=== PATIENT | male | born 1950 | race Caucasian/White ===

== ENCOUNTER → 2017-07-18 | Outpatient (CLI) | payer MEDICARE ==
[2017-07-18 13:39] LABS: Blood Urea Nitrogen 12 mg/dL (9-20); Non-African American GFR(MDRD) >60 (>60 ml/min/1.73 sqM)
--- NOTE | 2017-07-18 14:35 | CT ---
EXAMINATION TYPE: CT angio abdomen DATE OF EXAM: 07/18/2017 COMPARISON: NONE HISTORY: Follow up study for known abdominal aortic aneurysm. CT DLP: 642 mGycm CONTRAST: CTA abdominal aorta with 3-D reconstruction is performed and without and with IV Contrast, patient i njected with 100 mL of Omnipaque 350. Contrast CTA of the abdominal aorta was performed from the lung bases through the base of the pelvis. 3-D reconstruction imaging obtained at a separate workstation. CONTRAST CT ABDOMEN AND PELVIS ABDOMINAL AORTA: Infrarenal abdominal aortic aneurysm measuring 4.1 cm in AP dimension and approximat candice 7.7 cm in length as it extends to the aortic bifurcation. There is evidence for mural thrombus. A neurysm neck is approximately 3 cm. No evidence for dissection or complicating factor. 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 Left common iliac artery is of normal caliber. Major b ranch vessels appear to be patent although atheromatous changes seen. LIVER/GB- No significant abnormality is seen. PANCREAS- No significant abnormality is seen. SPLEEN- No significant abnormality is seen. ADRENALS-adrenal glandular thickening left greater than right. KIDNEYS/BLADDER-large exophytic cyst left kidney measuring 5.8 cm. No solid renal lesions seen. BOWEL- No Significant abnormality GENITAL ORGANS: No gross abnormality seen. LYMPH NODES- No greater than 1cm abdominal or pelvic lymph nodes areappreciated. OSSEOUS STRUCTURES- No significant abnormality is seen. OTHER- No significant abnormality is seen. IMPRESSION- 1. Infrarenal abdominal aortic aneurysm as discussed. 2 cm aneurysmal dilatation right common iliac a rtery as noted above.
== END | disposition home or self-care (01) ==
LOC: RADCTMAIN 12:55
PROVIDERS: ATTEND Thoracic Surgery (Cardiothoracic Vascular Surgery)
DX: I71.4 Abdominal aortic aneurysm, without rupture (principal); I72.3 Aneurysm of iliac artery
CPT/HCPCS: 82565; 84520; 74175; 36415; Q9967

== ENCOUNTER → 2018-01-08 | Outpatient (CLI) | payer MEDICARE ==
--- NOTE | 2018-01-15 12:02 | P.ARTDOP ---
Arterial Doppler LOWER EXTREMITY ARTERIAL DOPPLER: DATE OF SERVICE: 01/08/2018 Reason for study: Bilateral foot ulcers. Doppler waveforms: Multiphasic at the left femoral. Otherwise atypical bilaterally throughout.. Pulse volume recording: Some loss of the waveforms phasicity throughout except the right ankle which is severely blunted.. Pressure gradients: Above the low thigh bilaterally. And again below the knee on the right Ankle-brachial indices: 0.26 on the right and 0.6 on the left. Toe pressures: [] on the right, [] on the left Impression: Suggests moderate left iliofemoral occlusive disease. Moderate right iliofemoral disease occlusive disease with moderate additional fem-pop disease. Clinical correlation recommended.
== END | disposition home or self-care (01) ==
LOC: RADUSWWP 10:07
PROVIDERS: ATTEND Family Medicine
DX: R60.0 Localized edema (principal)
CPT/HCPCS: 93923

== ENCOUNTER 2018-01-10 17:13 | Inpatient (IN) | payer MEDICARE ==
--- NOTE | 2018-01-10 20:15 | ED ---
General Adult HPI <Antolin Peterson - Last Filed: 01/10/18 21:35> - General Source: patient Mode of arrival: wheelchair Limitations: no limitations <Neeta Ortiz - Last Filed: 01/11/18 00:24> - General Chief complaint: Wound/Laceration Stated complaint: Wound On Foot Time Seen by Provider: 01/10/18 18:58 - History of Present Illness Initial comments: 67-year-old male patient presents to the emergency department today at the request of his vascular surgeon. He reports that he has had wounds to his bilateral feet for the last month. States that he saw his primary physician on Sunday, started on Augmentin, and was referred to vascular surgery. Patient had aterial ultrasound and doppler performed on 01/08/18. States that he received a phone call from the surgeons office instructing him to come to the emergency department to be admitted and scheduled for surgery in the morning. Patient is unsure of the exact nature of the surgery. Patient states that other than the wounds and pain in his feet he is feeling generally well. Patient denies any fever or chills with this. States that they removed the "scabs" from his wounds today and they have had increased drainage. Patient denies any recent rash, shortness breath, chest pain, abdominal pain, nausea, vomiting, diarrhea, constipation, back pain, numbness, tingling, dizziness, weakness, hematuria, dysuria, urinary urgency, urinary frequency, headache, visual changes, or any other complaints. (Neeta Ortiz) - Related Data Home Medications Medication Instructions Recorded Confirmed Multivit-Min/FA/Lycopen/Lutein 1 tab PO DAILY 02/13/16 01/10/18 [Centrum Silver Tablet] Carvedilol [Coreg] 6.25 mg PO DAILY 07/01/16 01/10/18 Spironolactone [Aldactone] 25 mg PO DAILY 07/01/16 01/10/18 Amoxicillin/Potassium Clav 1 tab PO Q12HR 01/10/18 01/10/18 [Augmentin 875-125 Tablet] Previous Rx's Medication Instructions Recorded Aspirin EC [Ecotrin] 325 mg PO DAILY #30 tablet. 02/22/16 Atorvastatin [Lipitor] 40 mg PO HS #30 tab 02/22/16 Clopidogrel [Plavix] 75 mg PO DAILY #30 tab 02/22/16 Lisinopril [Zestril] 2.5 mg PO HS #30 tab 02/22/16 Montelukast [Singulair] 10 mg PO HS #30 tab 02/22/16 Ferrous Sulfate [Feosol] 325 mg PO BID #60 tab 07/02/16 Allergies Allergy/AdvReac Type Severity Reaction Status Date / Time No Known Allergies Allergy Verified 01/10/18 19:13 Review of Systems ROS Other: All systems not noted in ROS Statement are negative. <Antolin Peterson - Last Filed: 01/10/18 21:35> ROS Other: All systems not noted in ROS Statement are negative. <Neeta Ortiz - Last Filed: 01/11/18 00:24> ROS Statement: Those systems with pertinent positive or pertinent negative responses have been documented in the HPI. Past Medical History Past Medical History: Coronary Artery Disease (CAD), Heart Failure Additional Past Medical History / Comment(s): aortic aneusrym, herniated disc, peripheral vascular disease History of Any Multi-Drug Resistant Organisms: None Reported Past Surgical History: Appendectomy, Coronary Bypass/CABG Additional Past Surgical History / Comment(s): Right rotater cuff repair Past Psychological History: No Psychological Hx Reported Smoking Status: Former smoker Past Alcohol Use History: Occasional Past Drug Use History: Marijuana - Past Family History Father Family Medical History: Coronary Artery Disease (CAD) Additional Family Medical History / Comment(s): triple bypass <Neeta Ortiz - Last Filed: 01/11/18 00:24> General Exam Limitations: no limitations General appearance: alert, in no apparent distress, other (This is a well- developed, well-nourished adult male patient in no acute distress. Vital signs upon presentation are temperature 99.0F, pulse 88, respirations 20, blood pressure 119/57, pulse ox 97% on room air.) Eye exam: Present: normal appearance, PERRL, EOMI. Absent: scleral icterus, conjunctival injection, periorbital swelling ENT exam: Present: normal exam, normal oropharynx, mucous membranes moist Respiratory exam: Present: normal lung sounds bilaterally. Absent: respiratory distress, wheezes, rales, rhonchi, stridor Cardiovascular Exam: Present: regular rate, normal rhythm, normal heart sounds. Absent: systolic murmur, diastolic murmur, rubs, gallop, clicks GI/Abdominal exam: Present: soft, normal bowel sounds. Absent: distended, tenderness, guarding, rebound, rigid Extremities exam: Present: full ROM, normal capillary refill, other (Ulcer noted to the right great toe, right fifth toe, and right heal. Right foot exhibits non-pitting edema, with firm, tight, shiny skin. Ulcer noted to the right foot between the left third and fourth toe dorsally. Unable to palpate pedal or post tibial pulses. Faint pedal pulses found with doppler bilaterally. ). Absent: normal inspection, tenderness, pedal edema, joint swelling, calf tenderness Neurological exam: Present: alert, oriented X3, CN II-XII intact Psychiatric exam: Present: normal affect, normal mood Skin exam: Present: warm, dry, intact, normal color. Absent: rash <Neeta Ortiz - Last Filed: 01/11/18 00:24> Course <Antolin Peterson - Last Filed: 01/10/18 21:35> <Neeta Ortiz - Last Filed: 01/11/18 00:24> Vital Signs 01/10/18 01/10/18 17:19 21:58 Temperature 99.0 F 98.4 F Pulse Rate 88 68 Respiratory 20 18 Rate Blood Pressure 119/57 124/62 O2 Sat by Pulse 97 98 Oximetry - Reevaluation(s) Reevaluation #1: 01/10/18 21:35 Patient reevaluated by myself, Dr. Peterson. Patient resting comfortably in bed. Patient does have bilateral right greater than left foot ulcers. Patient did recently see a vascular surgeon and had arterial Doppler study done. Patient received a call and was told to come to the hospital. Patient received another call in the hospital. Patient apparently will have some sort of angiogram done tomorrow with possible stenting. Case was discussed in detail with Dr. Frederick, who will admit for Dr. Siegel. (Antolin Peterson) EKG Findings - EKG Comments: EKG Findings:: EKG obtained at 2011 shows possible left atrial enlargement, nonspecific intraventricular block. Ventricular rate is 81, P return of a 180, QRS duration 126, QT 382, QTc 443. No evidence of ST elevation or depression. <Neeta Ortiz - Last Filed: 05/04/18 00:24> Medical Decision Making - Lab Data Result diagrams: 01/10/18 20:08 01/10/18 20:08 <Antolin Peterson - Last Filed: 01/10/18 21:35> - Lab Data Result diagrams: 01/10/18 20:08 01/10/18 20:08 - Radiology Data Radiology results: report reviewed, image reviewed <Neeta Ortiz - Last Filed: 01/11/18 00:24> - Medical Decision Making 67 -year-old male patient presented to the emergency department today at the request of his vascular surgeon for admission. He reports they're planning surgery in the morning. He denies any current concerning symptoms. Patient does have chronic wounds to right and left foot. Presurgical labs EKG, and x- ray were obtained. Did discuss the case with Dr. Frederick who accepts admission. (Neeta Ortiz) - Lab Data Lab Results 01/10/18 01/10/18 01/10/18 Range/Units 20:08 20:08 20:08 WBC 6.7 (3.8-10.6) k/uL RBC 3.16 L (4.30-5.90) m/uL Hgb 9.5 L (13.0-17.5) gm/dL Hct 29.8 L (39.0-53.0) % MCV 94.3 (80.0-100.0) fL MCH 30.2 (25.0-35.0) pg MCHC 32.0 (31.0-37.0) g/dL RDW 14.2 (11.5-15.5) % Plt Count 435 (150-450) k/uL Neutrophils % 70 % Lymphocytes % 16 % Monocytes % 9 % Eosinophils % 2 % Basophils % 1 % Neutrophils # 4.7 (1.3-7.7) k/uL Lymphocytes # 1.0 (1.0-4.8) k/uL Monocytes # 0.6 (0-1.0) k/uL Eosinophils # 0.2 (0-0.7) k/uL Basophils # 0.0 (0-0.2) k/uL PT 10.5 (9.0-12.0) sec INR 1.1 (<1.2) APTT 23.9 (22.0-30.0) sec Sodium 132 L (137-145) mmol/L Potassium 5.1 (3.5-5.1) mmol/L Chloride 96 L (98-107) mmol/L Carbon Dioxide 23 (22-30) mmol/L Anion Gap 13 mmol/L BUN 8 L (9-20) mg/dL Creatinine 0.68 (0.66-1.25) mg/dL Est GFR (CKD-EPI)AfAm >90 (>60 ml/min/1.73 sqM) Est GFR (CKD-EPI)NonAf >90 (>60 ml/min/1.73 sqM) Glucose 72 L (74-99) mg/dL Calcium 9.8 (8.4-10.2) mg/dL Total Bilirubin 0.3 (0.2-1.3) mg/dL AST 25 (17-59) U/L ALT 22 (21-72) U/L Alkaline Phosphatase 87 (38-126) U/L Total Protein 7.3 (6.3-8.2) g/dL Albumin 4.4 (3.5-5.0) g/dL - Radiology Data Two-view x-ray of the chest was obtained. Report was reviewed in its entirety. Impression by Dr. Rodriguez shows no acute cardio pulmonary process. Dehiscence of multiple sternotomy wires, new from the prior 2015. (Neeta Ortiz) Disposition <Antolin Peterson - Last Filed: 01/10/18 21:35> Decision to Admit Reason: Admit from EC Decision Date: 01/11/18 Decision Time: 00:23 <Neeta Ortiz - Last Filed: 01/11/18 00:24> Clinical Impression: Arterial occlusion, Ulcer of foot, chronic Disposition: ADMITTED IP TO THIS [facility] Condition: Serious
[2018-01-10 20:19] LABS: Basophils % (A) 1 %; Eosinophils # (A) 0.2 k/uL (0-0.7); Eosinophils % (A) 2 %; HCT 29.8 % (39.0-53.0); HGB 9.5 gm/dL (13.0-17.5); Lymphocytes % (A) 16 %; MCH 30.2 pg (25.0-35.0); MCV 94.3 fL (80.0-100.0); Mean Platelet Volume 7.5; Monocytes # (A) 0.6 k/uL (0-1.0); Monocytes % (A) 9 %; Neutrophils # (A) 4.7 k/uL (1.3-7.7); Neutrophils % (A) 70 %; Platelet Count 435 k/uL (150-450); RBC 3.16 m/uL (4.30-5.90); RDW 14.2 % (11.5-15.5); WBC 6.7 k/uL (3.8-10.6)
[2018-01-10 20:28] LABS: INR 1.1 (<1.2); Partial Thromboplastin Time 23.9 sec (22.0-30.0); Prothrombin Time 10.5 sec (9.0-12.0)
--- NOTE | 2018-01-10 20:43 | XR ---
EXAMINATION TYPE: XR chest 2V DATE OF EXAM: 01/10/2018 COMPARISON: 02/22/2016 HISTORY: Chest pain TECHNIQUE: Frontal and lateral views of the chest are obtained. FINDINGS: There is dehiscence of multiple sternotomy wires. This is new from the prior exam of 2015. Cardiomediastinal silhouette is within normal limits. Pulmonary hyperinflation and slight flattening of the diaphragms likely relates underlying COPD. Multilevel moderate degenerative changes of the th oracic spine and right acromioclavicular joint are present. No focal consolidation, pleural effusion or pneumothorax. IMPRESSION: 1. No acute cardiopulmonary process. 2. Dehiscence of multiple sternotomy wires, new from the prior 2016.
[2018-01-10 20:59] LABS: ALT 22 U/L (21-72); AST 25 U/L (17-59); Albumin 4.4 g/dL (3.5-5.0); Alkaline Phosphatase 87 U/L (38-126); Anion Gap 13 mmol/L; Blood Urea Nitrogen 8 mg/dL (9-20); Calcium 9.8 mg/dL (8.4-10.2); Carbon Dioxide 23 mmol/L (22-30); Chloride 96 mmol/L (98-107); Glucose 72 mg/dL (74-99); Potassium 5.1 mmol/L (3.5-5.1); Sodium 132 mmol/L (137-145); Total Bilirubin 0.3 mg/dL (0.2-1.3); Total Protein 7.3 g/dL (6.3-8.2)
[2018-01-10] MEDS ORDERED: HYDROcodone/APAP 5-325MG 1 EACH TAB PO STA (21:19)
[2018-01-10] MEDS ORDERED: ACETAMINOPHEN TAB 325 MG TAB PO PRN (21:30)
[2018-01-10] MEDS ORDERED: NALOXONE 0.4 MG/ML 1 ML VIAL IV PRN (21:30)
[2018-01-10] MEDS ORDERED: AMPICILLIN-SULBACTAM 3 GM in SODIUM CHLORIDE 0.9% 100 ML IVPB STA (21:33)
[2018-01-10] MEDS: SODIUM CHLORIDE 0.9% 1,000 ML IV SCH (23:26)
[2018-01-11] MEDS: HYDROcodone/APAP 5-325MG 1 EACH TAB PO PRN ×4 (01:13→23:29)
--- NOTE | 2018-01-11 08:03 | P.GSCN ---
History of Present Illness Consult date: 01/11/18 Reason for Consult: Bilateral lower extremity wounds Requesting physician: Neeta Ortiz History of present illness: 67-year-old gentleman who has been seen in the vascular office for bilateral lower extremity claudication as well as bilateral lower extremity wounds. He was recently diagnosed with clinical osteomyelitis in the office and was instructed to go to the emergency department. He also underwent arterial Doppler with ABIs that demonstrated severe disease in the right lower extremity. His ABIs on the right were 0.29 and the left measuring 0.60. He states he has significant pain in bilateral feet with his right foot worse than his left. He states his right foot and toes are increasing in redness and feel cool compared to the left. He does have multiple wounds on the right foot including his heel and toes. He denies any fevers, chills, chest pain or shortness of breath currently. Review of Systems All systems: negative Past Medical History Past Medical History: Coronary Artery Disease (CAD), Heart Failure Additional Past Medical History / Comment(s): aortic aneusrym, herniated disc, peripheral vascular disease History of Any Multi-Drug Resistant Organisms: None Reported Past Surgical History: Appendectomy, Coronary Bypass/CABG Additional Past Surgical History / Comment(s): Right rotater cuff repair Past Psychological History: No Psychological Hx Reported Smoking Status: Former smoker Past Alcohol Use History: Occasional Past Drug Use History: Marijuana - Past Family History Father Family Medical History: Coronary Artery Disease (CAD) Additional Family Medical History / Comment(s): triple bypass Medications and Allergies Home Medications Medication Instructions Recorded Confirmed Type Multivit-Min/FA/Lycopen/Lutein 1 tab PO DAILY 02/13/16 01/10/18 History [Centrum Silver Tablet] Aspirin EC [Ecotrin] 325 mg PO DAILY #30 tablet. 02/22/16 01/10/18 Rx Atorvastatin [Lipitor] 40 mg PO HS #30 tab 02/22/16 01/10/18 Rx Clopidogrel [Plavix] 75 mg PO DAILY #30 tab 02/22/16 01/10/18 Rx Lisinopril [Zestril] 2.5 mg PO HS #30 tab 02/22/16 01/10/18 Rx Montelukast [Singulair] 10 mg PO HS #30 tab 02/22/16 01/10/18 Rx Carvedilol [Coreg] 6.25 mg PO DAILY 07/01/16 01/10/18 History Spironolactone [Aldactone] 25 mg PO DAILY 07/01/16 01/10/18 History Ferrous Sulfate [Feosol] 325 mg PO BID #60 tab 07/02/16 01/10/18 Rx Amoxicillin/Potassium Clav 1 tab PO Q12HR 01/10/18 01/10/18 History [Augmentin 875-125 Tablet] Allergies Allergy/AdvReac Type Severity Reaction Status Date / Time No Known Allergies Allergy Verified 01/10/18 19:13 Surgical - Exam Vital Signs Temp Pulse Resp BP Pulse Ox 99.0 F 88 20 119/57 97 01/10/18 17:19 01/10/18 17:19 01/10/18 17:19 01/10/18 17:19 01/10/18 17:19 Right lower extremity with skin discoloration and what appears to be eczema noted. There are wounds at the right great toe lateral right foot and heel. The lateral wound on the right foot has some exudative tissue noted. There is no malodor. He has exquisite tenderness to palpation of his great toe and a wound on the distal aspect of the toe. His wounds measured approximately 3 x 2 cm in the lateral foot wound. His great toe wound is proximally 2 x 1 cm. And his heel wound measures approximately 2 x 1 cm. Depth is noted to be down to the tendon on the lateral foot wound. He has palpable femoral pulses bilaterally. Nonpalpable popliteal, PT or DP pulses. Cap refill is noted on the left. - General well developed, well nourished, no distress - Eyes PERRL, normal ocular movement - ENT normal pinna, normal nares - Neck no masses - Respiratory normal expansion - Cardiovascular Rhythm: regular - Abdomen Abdomen: soft, no distended - Integumentary other (Eczema rash noted on the right lower extremity.) - Neurologic normal coordination - Psychiatric oriented to time, oriented to person, oriented to place, speech is normal Results Arterial Doppler lower extremities demonstrate ABIs of 0.29 on the right and 0.60 on the left - Labs 01/10/18 20:08 01/10/18 20:08 Abnormal Lab Results - Last 24 Hours (Table) 01/10/18 01/10/18 Range/Units 20:08 20:08 RBC 3.16 L (4.30-5.90) m/uL Hgb 9.5 L (13.0-17.5) gm/dL Hct 29.8 L (39.0-53.0) % Sodium 132 L (137-145) mmol/L Chloride 96 L (98-107) mmol/L BUN 8 L (9-20) mg/dL Glucose 72 L (74-99) mg/dL Diabetes panel 01/10/18 Range/Units 20:08 Sodium 132 L (137-145) mmol/L Potassium 5.1 (3.5-5.1) mmol/L Chloride 96 L (98-107) mmol/L Carbon Dioxide 23 (22-30) mmol/L BUN 8 L (9-20) mg/dL Creatinine 0.68 (0.66-1.25) mg/dL Glucose 72 L (74-99) mg/dL Calcium 9.8 (8.4-10.2) mg/dL AST 25 (17-59) U/L ALT 22 (21-72) U/L Alkaline Phosphatase 87 (38-126) U/L Total Protein 7.3 (6.3-8.2) g/dL Albumin 4.4 (3.5-5.0) g/dL Calcium panel 01/10/18 Range/Units 20:08 Calcium 9.8 (8.4-10.2) mg/dL Albumin 4.4 (3.5-5.0) g/dL Pituitary panel 01/10/18 Range/Units 20:08 Sodium 132 L (137-145) mmol/L Potassium 5.1 (3.5-5.1) mmol/L Chloride 96 L (98-107) mmol/L Carbon Dioxide 23 (22-30) mmol/L BUN 8 L (9-20) mg/dL Creatinine 0.68 (0.66-1.25) mg/dL Glucose 72 L (74-99) mg/dL Calcium 9.8 (8.4-10.2) mg/dL Adrenal panel 01/10/18 Range/Units 20:08 Sodium 132 L (137-145) mmol/L Potassium 5.1 (3.5-5.1) mmol/L Chloride 96 L (98-107) mmol/L Carbon Dioxide 23 (22-30) mmol/L BUN 8 L (9-20) mg/dL Creatinine 0.68 (0.66-1.25) mg/dL Glucose 72 L (74-99) mg/dL Calcium 9.8 (8.4-10.2) mg/dL Total Bilirubin 0.3 (0.2-1.3) mg/dL AST 25 (17-59) U/L ALT 22 (21-72) U/L Alkaline Phosphatase 87 (38-126) U/L Total Protein 7.3 (6.3-8.2) g/dL Albumin 4.4 (3.5-5.0) g/dL Assessment and Plan Assessment: Right lower extremity critical limb ischemia with multiple foot and toe wounds Plan: Discussed possible options including aortogram with runoff to further delineate his arterial disease. Patient is agreeable and we will perform this later today.
[2018-01-11 09:29] LABS: Basophils % (A) 0 %; Eosinophils # (A) 0.2 k/uL (0-0.7); Eosinophils % (A) 2 %; HCT 28.4 % (39.0-53.0); HGB 9.1 gm/dL (13.0-17.5); Lymphocytes # (A) 0.8 k/uL (1.0-4.8); Lymphocytes % (A) 9 %; MCH 30.7 pg (25.0-35.0); MCHC 31.9 g/dL (31.0-37.0); MCV 96.1 fL (80.0-100.0); Mean Platelet Volume 6.6; Monocytes # (A) 0.6 k/uL (0-1.0); Monocytes % (A) 7 %; Neutrophils # (A) 6.4 k/uL (1.3-7.7); Neutrophils % (A) 77 %; Platelet Count 424 k/uL (150-450); RBC 2.96 m/uL (4.30-5.90); RDW 14.1 % (11.5-15.5); WBC 8.4 k/uL (3.8-10.6)
[2018-01-11 09:30] LABS: Anion Gap 9 mmol/L; Blood Urea Nitrogen 12 mg/dL (9-20); Calcium 9.2 mg/dL (8.4-10.2); Carbon Dioxide 25 mmol/L (22-30); Chloride 102 mmol/L (98-107); Glucose 91 mg/dL (74-99); Potassium 5.4 mmol/L (3.5-5.1); Sodium 136 mmol/L (137-145)
[2018-01-11] MEDS ORDERED: MIDAZOLAM 2 MG/2 ML VIAL ONE (11:04)
[2018-01-11] MEDS ORDERED: fentaNYL (PF) 50 MCG/ML 2 ML AMP ONE (11:05)
[2018-01-11] MEDS ORDERED: IV FLUID CONTINUATION 150 ML IV ONE (11:15)
[2018-01-11] MEDS: fentaNYL (PF) 50 MCG/ML 2 ML AMP IVP ONE ×2 (11:18→11:40)
[2018-01-11] MEDS: MIDAZOLAM 2 MG/2 ML VIAL IVP ONE ×2 (11:18→11:40)
[2018-01-11] MEDS ORDERED: LIDOCAINE 2% INJ 20 MG/ML SQ ONE (11:20)
[2018-01-11] MEDS ORDERED: IOPAMIDOL-250 100ML BTL INTRAARTER ONE ×2 (11:45→12:08)
[2018-01-11] MEDS ORDERED: SODIUM CHLORIDE 0.9% 1,000 ML IV ONE (12:11)
[2018-01-11] MEDS ORDERED: IOPAMIDOL-250 50ML BTL INTRAARTER ONE (12:11)
[2018-01-11] MEDS ORDERED: SODIUM POLYSTYRENE SULFONATE 15 GM/60 ML BOTTLE PO STA (12:37)
--- NOTE | 2018-01-11 12:37 | P.HPIM ---
History of Present Illness H&P Date: 01/18/18 Chief Complaint: Bilateral lower extremity wounds This is a 67-year-old male, patient of [facility]. He has a known past medical history of coronary artery disease with previous CABG in February 2016 , peripheral vascular disease and a 4 cm abdominal aortic aneurysm, and iron deficiency anemia. Patient also has bilateral feet wounds. His PCP started him on Augmentin on Sunday. And refer him to a vascular surgeon. Patient went to see the vascular surgeon yesterday and had testing completed. Patient was told that the testing results were abnormal and to present to the emergency room. According to the vascular surgeon patient had undergone an arterial Doppler with ABIs that demonstrated severe disease in the right lower extremity. Patient also has significant pain in the bilateral feet, right worse than left. Right foot is increasing in redness cold to touch. There are multiple wounds on the right foot including heel 1 along the greater toe and I' ll near the fifth toe. Patient was admitted to the hospital for right lower extremity critical limb ischemia with multiple foot and toe wounds. Patient had arteriogram completed. And likely have further surgical intervention later today with Dr. Padilla. Patient denies any chest pain or shortness breath. Denies any nausea or vomiting. Denies any bowel movement changes or urinary symptoms. Denies any fever chills or sweats. His wounds on his feet have been ongoing for about the past month. He denies any history of diabetes. Review of Systems Please refer to HPI otherwise unremarkable Past Medical History Past Medical History: Coronary Artery Disease (CAD), Heart Failure Additional Past Medical History / Comment(s): aortic aneusrym, herniated disc, peripheral vascular disease History of Any Multi-Drug Resistant Organisms: None Reported Past Surgical History: Appendectomy, Coronary Bypass/CABG Additional Past Surgical History / Comment(s): Right rotater cuff repair Past Psychological History: No Psychological Hx Reported Smoking Status: Former smoker Past Alcohol Use History: Occasional Past Drug Use History: Marijuana - Past Family History Father Family Medical History: Coronary Artery Disease (CAD) Additional Family Medical History / Comment(s): triple bypass Medications and Allergies Home Medications Medication Instructions Recorded Confirmed Type Multivit-Min/FA/Lycopen/Lutein 1 tab PO DAILY 02/13/16 01/10/18 History [Centrum Silver Tablet] Aspirin EC [Ecotrin] 325 mg PO DAILY #30 tablet. 02/22/16 01/10/18 Rx Atorvastatin [Lipitor] 40 mg PO HS #30 tab 02/22/16 01/10/18 Rx Clopidogrel [Plavix] 75 mg PO DAILY #30 tab 02/22/16 01/10/18 Rx Lisinopril [Zestril] 2.5 mg PO HS #30 tab 02/22/16 01/10/18 Rx Montelukast [Singulair] 10 mg PO HS #30 tab 02/22/16 01/10/18 Rx Carvedilol [Coreg] 6.25 mg PO DAILY 07/01/16 01/10/18 History Spironolactone [Aldactone] 25 mg PO DAILY 07/01/16 01/10/18 History Ferrous Sulfate [Feosol] 325 mg PO BID #60 tab 07/02/16 01/10/18 Rx Amoxicillin/Potassium Clav 1 tab PO Q12HR 01/10/18 01/10/18 History [Augmentin 875-125 Tablet] Allergies Allergy/AdvReac Type Severity Reaction Status Date / Time No Known Allergies Allergy Verified 01/10/18 19:13 Physical Exam Vitals: Vital Signs Temp Pulse Pulse Resp BP BP Pulse Ox 01/11/18 07:00 97.6 F 70 18 114/64 98 01/11/18 03:07 97.7 F 68 16 113/53 98 01/11/18 00:25 16 01/10/18 23:23 96.9 F L 87 16 109/62 94 L 01/10/18 21:58 98.4 F 68 18 124/62 98 01/10/18 17:19 99.0 F 88 20 119/57 97 Intake and Output 01/10/18 01/11/18 01/11/18 22:59 06:59 14:59 Intake Total 100 Balance 100 Intake: IV 100 Oral 0 Other: Voiding Method Toilet # Voids 1 Weight 72.121 kg 72.121 kg Head normocephalic Neck supple Lungs clear to auscultation bilaterally no wheezing or crackles Heart regular rate and rhythm S1-S2, no rub or gallop Abdomen is soft nontender nondistended positive bowel sounds no hepatosplenomegaly Extremities no edema. Right foot red in color cold to touch. Ulcers on the right great toe medial aspect and lateral aspect of the foot near the fifth toe heel ulcer present. No drainage noted. Extreme tenderness with palpation of the feet. Measurements taken by vascular surgeon please note his consult report. Left foot ulcer between the second and third toe Neuro alert and orientated to 3 Results CBC & Chem 7: 01/11/18 08:49 01/11/18 08:49 Labs: Abnormal Lab Results - Last 24 Hours (Table) 01/10/18 01/10/18 01/11/18 Range/Units 20:08 20:08 08:49 RBC 3.16 L 2.96 L (4.30-5.90) m/uL Hgb 9.5 L 9.1 L (13.0-17.5) gm/dL Hct 29.8 L 28.4 L (39.0-53.0) % Lymphocytes # 0.8 L (1.0-4.8) k/uL Sodium 132 L (137-145) mmol/L Potassium (3.5-5.1) mmol/L Chloride 96 L (98-107) mmol/L BUN 8 L (9-20) mg/dL Glucose 72 L (74-99) mg/dL 01/11/18 Range/Units 08:49 RBC (4.30-5.90) m/uL Hgb (13.0-17.5) gm/dL Hct (39.0-53.0) % Lymphocytes # (1.0-4.8) k/uL Sodium 136 L (137-145) mmol/L Potassium 5.4 H (3.5-5.1) mmol/L Chloride (98-107) mmol/L BUN (9-20) mg/dL Glucose (74-99) mg/dL Thrombosis Risk Factor Assmnt - Choose All That Apply Each Risk Factor Represents 2 Points: Age 61-74 years, Major surgery Thrombosis Risk Factor Assessment Total Risk Factor Score: 4 Thrombosis Risk Factor Assessment Level: Moderate Risk Assessment and Plan Assessment: 1. Right lower extremity critical limb ischemia with multiple foot and toe wounds: Patient evaluated by vascular surgery. She is scheduled for arteriogram. Continue [place] as needed for pain 2. Vascular ulcers of both feet. Ranging from stage II to stage III. Infectious disease will be consulted 3. Hyperkalemia: Discontinue Aldactone. Potassium 5.4. Give a dose of Kayexalate. Repeat potassium level in a.m. 4. History of severe peripheral vascular disease. Patient's aspirin and Plavix currently on hold for procedure today 5. History of coronary disease with previous CABG in 2016 6. History of abdominal aortic aneurysm 4 cm in size. Followed by Dr. Pena. Has abdominal ultrasound every 6 months 7. Iron deficiency anemia: Hemoglobin 9.5. No active signs of bleeding. Iron supplement. He reports last colonoscopy over 5 years ago 8. Hyperlipidemia continue statin 9. Essential hypertension: Blood pressures are stable and slightly on the lower side. Place parameters to hold lisinopril. Pressure less than 120 and coronary for supple pressure less than 110 and heart rate less than 55 GI prophylaxis Pepcid and will await starting DVT prophylaxis until after patient's surgical procedure
--- NOTE | 2018-01-11 12:49 | P.OP ---
Date of Procedure: 01/11/18 Preoperative Diagnosis: #1 bilateral lower extremity foot wounds with right great toe and fifth toe osteomyelitis. #2 bilateral lower extremity claudication with rest pain Postoperative Diagnosis: #1 bilateral lower extremity diffuse atherosclerotic disease extending from the aorta to the tibial vessels. #2 right superficial femoral artery occlusive disease with multiple areas of stenosis. #3 right external iliac artery stenosis approximately 70% #4 left superficial femoral artery occlusive disease with chronic total occlusion at the mid SFA with recollateralization at Herrera's canal. Procedure(s) Performed: Aortogram with bilateral lower extremity runoff Implants: None Anesthesia: local, other (Moderate sedation with Versed and fentanyl) Surgeon: Tay Padilla Estimated Blood Loss (ml): 5 Pathology: none sent Condition: stable Disposition: floor Indications for Procedure: This is a 67-year-old gentleman who presented to the hospital from vascular office secondary to clinical ostial the right fifth toe and lateral foot. He underwent arterial Doppler with ABIs that demonstrated 0.29 on the right and 0.6 -year-old the left. He presents to the [facility] for angiogram to further delineate his arterial disease. Operative Findings: Aorta: Moderate to severe atherosclerotic disease throughout with aneurysmal disease noted at the infrarenal aorta extending to the bifurcation. No evidence of stenosis noted. Iliacs: Bilateral common iliac arteries are ectatic with atherosclerotic disease throughout. Bilateral internal iliac arteries are patent with atherosclerotic disease. The right external iliac artery has approximately 60% stenosis. Left external iliac artery is patent with about evidence of severe stenosis. Femorals: Right common femoral, profundus and superficial femoral artery at the takeoff are patent with significant atherosclerotic calcification throughout. There is approximately 60% stenosis noted at the takeoff of the right SFA. The SFA is calcific throughout its entirety with multiple areas of stenosis throughout the midportion. Left common, profundus and superficial femoral artery are patent at the takeoffs. There is dense calcification and after stenotic disease throughout. The SFA on the left has multiple areas of stenosis and a chronic total occlusion at the midportion of the vessel with collateralization at Herrera's canal. Popliteal: Right popliteal artery is patent with dense atherosclerotic disease and ectasia. Left brachial artery is patent with at the stenotic disease and ectasia. Tibials: Right anterior, posterior tibial and peroneal arteries are patent with atherosclerotic disease throughout. There is two-vessel runoff to the ankle. Left anterior, posterior tibial and peroneal arteries are patent with atherosclerotic disease throughout. There two-vessel runoff to the ankle. Description of Procedure: After written informed consent was obtained the patient all risks benefits, patient prescribed patient is brought to the [facility] and laid in a supine position the area of the groins were prepped and draped in usual sterile fashion. Sedation was performed with the fentanyl and Versed as well as local anesthetic for the groin. Utilizing ultrasound the left common femoral artery was visualized shown to be patent with some calcification noted. Multipurpose needle the vessel was cannulated and utilizing Seldinger technique a 5-Danish sheath was placed. Glidewire was then placed within the aorta and angiogram was obtained. The catheter was then withdrawn and an up and over technique the right iliac vessels were accessed. Pigtail catheter was removed and replaced with a straight impress catheter and right lower extremity selective angiograms were obtained. Catheter was then withdrawn and brought to the left iliac where left sided iliac to tibial runoff was then performed. All guidewires and catheters were then removed pressure was placed after the sheath was removed for hemostasis. Hemostasis was assured and the patient was sent back to his room for recovery.
--- NOTE | 2018-01-11 17:38 | CONS ---
CONSULTATION DATE OF SERVICE: 01/11/2018. REASON FOR CONSULTATION: Bilateral feet wound. HISTORY OF PRESENT ILLNESS: The patient is a 67-year-old male who has been having a problem with wounds to the bilateral feet area started mostly on the right foot first. About a month ago he did have a wound on the right big toe medial border and the left fifth toe lateral border with a wound on the plantar aspect of the right foot. The patient says that it started as a blister and opened up leading to this ulceration. Patient complaining of pain in all of his wounds, more of a sharp pain 5 to 6/10, and no radiation. The patient did have a Doppler ultrasound done in outpatient setting, which did show evidence of an arterial disease and subsequently has been sent to the ER for further evaluation for the same and possible vascular workup. The patient has been evaluated by Vascular Surgery and the patient did have a angiogram with runoff which did show bilateral lower extremities diffuse atherosclerotic disease extending from the aorta to the deep vessel, right superficial disease and right external iliac artery stenosis with left superficial femoral artery occlusion. The patient has been admitted to the hospital for further workup for the same. I was asked to see the patient for further recommendation regarding wound care and need for antibiotic therapy. Since the patient has been in the hospital, the patient has been afebrile. Highest temperature has been 99 degrees with no elevated white count. The patient has been on outpatient antibiotic in the form of Augmentin. REVIEW OF SYSTEMS: CONSTITUTIONAL: Positive for weakness. Denies any high-grade fever. Eyes no complaint. ENT no complaint. Respiratory no complaint. Cardiovascular no complaint. Genitourinary no complaint. Gastrointestinal: No complaint. Musculoskeletal as per HPI. Integumentary as per HPI. Psychological no complaint. Endocrine no complaint. Neurologic no complaint. PAST MEDICAL HISTORY: Coronary artery disease, heart failure, aortic aneurysm, chronic back pain from herniated disc, peripheral vascular disease. PAST SURGICAL HISTORY: Appendectomy and coronary artery bypass grafting, right rotator cuff repair. SOCIAL HISTORY: History of smoking, occasional drinks. Admitted to marijuana use. FAMILY HISTORY: Father history of coronary artery disease. ALLERGIES: No known drug allergies. MEDICATION: Medications include the patient is currently on Tylenol, [place], Lipitor, Coreg, Pepcid, iron sulfate, Zestril, Singulair, Theragran, Narcan. EXAMINATION: Blood pressure 133/73 with a pulse of 82, temperature 97.8. He is 98% on room air. General description is an elderly male lying in bed in no distress. No tachypnea or accessory muscles of respiration use. HEENT: Shows slight pallor. No scleral icterus. Oral mucosa membranes dry. No pharyngeal erythema or thrush. Neck trachea central. No thyromegaly. Lungs unlabored breathing. Clear to auscultation anteriorly. No wheezes or crackles. Heart S1, S2. Regular rate and rhythm. ABDOMEN: Soft. No guarding. No rigidity. Extremities are no edema of feet. Examination of the right foot, the patient did have 3 wounds: One on the right big toe on the medial border. It looks like dried out. The wound on the right foot fifth toe lateral border with some slough tissue. Minimal surrounding erythema. No foul smelling drainage. Wound on the plantar aspect close to the heel area with minimal slough but no surrounding edema, though all these are tender to touch. The patient also had wound on the left foot 3rd toe with minimal soft tissue . No surrounding erythema. Neurological: Patient is awake, alert, oriented times three. Mood and affect normal. LABS: Hemoglobin is 9.1, white count 8.4, BUN of 12, creatinine 0.71. DIAGNOSTIC IMPRESSION AND PLAN: Patient admitted to the hospital with bilateral foot wound, more of an anterior ulcer with some evidence of slough tissue, very minimal cellulitis. PLAN: 1. Local wound care with Santyl followed by moist dressing. 2. Wound cultures with aerobic, anaerobic. 3. X-rays of the right foot to rule out any bony changes. 4. Will empirically add Unasyn 3 g every 6 hours. 5. We will follow up on the clinical condition and culture to further adjust medication if needed. Thank you for this consultation. We will follow the patient along with you. MMODL / IJN: [id number] /
[2018-01-11] MEDS: COLLAGENASE 250 UNIT/GM OINTMENT 30 GM TUBE TOPICAL SCH (18:12)
[2018-01-11] MEDS: AMPICILLIN-SULBACTAM 3 GM in SODIUM CHLORIDE 0.9% 100 ML IVPB SCH ×2 (18:12→23:30)
[2018-01-11] MEDS: SODIUM CHLORIDE 0.9% 1,000 ML IV SCH (18:14)
--- NOTE | 2018-01-11 20:06 | XR ---
PROCEDURE: XR foot complete RT 3 views DATE AND TIME: 01/11/2018 7:54 PM REFERRING PHYSICIAN: Salima Galo CLINICAL INDICATION: PHH, right big toe and 5th toe wound TECHNIQUE: Department protocol. COMPARISON: None FINDINGS: There is lateral soft tissue swelling with osteopenia of the distal fifth metatarsal and base of the proximal fifth phalanx, this suggests the possibility of septic joint. This can be further evaluated for both sensitivity and specificity using multisequence multiplanar high-resolution foot MRI without and with contrast. There is no fracture or malalignment. The soft tissues are unremarkable. IMPRESSION: FINDINGS SUSPICIOUS FOR FIFTH MTP SEPTIC JOINT CHANGES.
[2018-01-11] MEDS: ATORVASTATIN 40 MG TAB PO SCH (20:51)
[2018-01-11] MEDS: FERROUS SULFATE 325 MG TAB PO SCH (20:51)
[2018-01-11] MEDS: MONTELUKAST 10 MG TAB PO SCH (20:51)
[2018-01-11] MEDS ORDERED: LISINOPRIL 2.5 MG TAB PO SCH (21:00)
[2018-01-12] MEDS: HYDROcodone/APAP 5-325MG 1 EACH TAB PO PRN ×3 (03:45→22:56)
[2018-01-12] MEDS: AMPICILLIN-SULBACTAM 3 GM in SODIUM CHLORIDE 0.9% 100 ML IVPB SCH ×4 (05:25→22:53)
[2018-01-12 07:09] LABS: Basophils % (A) 0 %; Eosinophils # (A) 0.2 k/uL (0-0.7); Eosinophils % (A) 2 %; HCT 29.1 % (39.0-53.0); HGB 9.1 gm/dL (13.0-17.5); Lymphocytes # (A) 0.8 k/uL (1.0-4.8); Lymphocytes % (A) 9 %; MCH 30.4 pg (25.0-35.0); MCHC 31.3 g/dL (31.0-37.0); MCV 97.2 fL (80.0-100.0); Mean Platelet Volume 6.2; Monocytes # (A) 0.8 k/uL (0-1.0); Monocytes % (A) 9 %; Neutrophils # (A) 6.9 k/uL (1.3-7.7); Neutrophils % (A) 77 %; Platelet Count 413 k/uL (150-450); RBC 2.99 m/uL (4.30-5.90); RDW 14.1 % (11.5-15.5); WBC 8.9 k/uL (3.8-10.6)
[2018-01-12] MEDS: CARVEDILOL 6.25 MG TAB PO SCH (07:26)
[2018-01-12 07:36] LABS: ALT 24 U/L (21-72); AST 24 U/L (17-59); Albumin 3.3 g/dL (3.5-5.0); Alkaline Phosphatase 65 U/L (38-126); Anion Gap 10 mmol/L; Blood Urea Nitrogen 9 mg/dL (9-20); Calcium 8.9 mg/dL (8.4-10.2); Carbon Dioxide 23 mmol/L (22-30); Chloride 104 mmol/L (98-107); Glucose 91 mg/dL (74-99); Potassium 4.4 mmol/L (3.5-5.1); Sodium 137 mmol/L (137-145); Total Bilirubin 0.1 mg/dL (0.2-1.3); Total Protein 5.8 g/dL (6.3-8.2)
[2018-01-12] MEDS: FERROUS SULFATE 325 MG TAB PO SCH ×2 (08:07→20:14)
[2018-01-12] MEDS: FAMOTIDINE 20 MG TAB PO SCH (08:07)
[2018-01-12] MEDS ORDERED: SPIRONOLACTONE 25 MG TAB PO SCH (09:00)
[2018-01-12] MEDS: COLLAGENASE 250 UNIT/GM OINTMENT 30 GM TUBE TOPICAL SCH (09:20)
--- NOTE | 2018-01-12 09:23 | P.CON ---
Consult Note - . Consult date: 01/12/18 Assessment/Plan:: Subjective: No complaints today. Patient is well-known to me from the office. Patient is post angiogram. 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 On the right foot there is bony involvement. He is angiogram shows ectatic, extremely calcific, irregular disease without total occlusion on the right but with a portion of the SFA on the left that is totally occluded. He has huge profunda femoralis arteries. Objective: His ulcers are cleaning up fairly well. His feet are otherwise pink and normal in temperature and color. Assessment: Stable ulcers which are mixed ischemic and neuropathic. There is osteomyelitis involving the right foot. Plan: I discussed the current plan with the patient. #1 IV antibiotics, #2 surgical debridement with sedation on Sunday, #3 complete offloading. If there appears to be healing after the debridement, we will continue with a conservative course. If they do not clean up well and beginning to granulate he will need bypass to popliteals.
[2018-01-12] MEDS: MULTIVITAMINS, THERA 1 EACH TAB PO SCH (11:29)
--- NOTE | 2018-01-12 12:17 | P.PN ---
Subjective Progress Note Date: 01/12/18 This is a 67-year-old male, patient of [facility]. He has a known past medical history of coronary artery disease with previous CABG in February 2016 , peripheral vascular disease and a 4 cm abdominal aortic aneurysm, and iron deficiency anemia. Patient also has bilateral feet wounds. His PCP started him on Augmentin on Sunday. And refer him to a vascular surgeon. Patient went to see the vascular surgeon yesterday and had testing completed. Patient was told that the testing results were abnormal and to present to the emergency room. According to the vascular surgeon patient had undergone an arterial Doppler with ABIs that demonstrated severe disease in the right lower extremity. Patient also has significant pain in the bilateral feet, right worse than left. Right foot is increasing in redness cold to touch. There are multiple wounds on the right foot including heel 1 along the greater toe and I' ll near the fifth toe. Patient was admitted to the hospital for right lower extremity critical limb ischemia with multiple foot and toe wounds. Patient had arteriogram completed. And likely have further surgical intervention later today with Dr. Padilla. Patient denies any chest pain or shortness breath. Denies any nausea or vomiting. Denies any bowel movement changes or urinary symptoms. Denies any fever chills or sweats. His wounds on his feet have been ongoing for about the past month. He denies any history of diabetes. On 01/12/2018 Patient is alert and oriented in no distress, pain is reasonably well controlled receiving IV antibiotics, no fever or chills no headache no dizziness, no chest pain or shortness of breath no cough, no nausea or vomiting no abdominal pain no diarrhea and no urinary symptoms. Objective - Vital Signs Vital signs: Vital Signs Temp 97.3 F L 01/12/18 08:00 Pulse 84 01/12/18 08:00 Resp 18 01/12/18 08:00 BP 123/67 01/12/18 08:00 Pulse Ox 97 01/12/18 08:00 Intake & Output 01/11/18 01/12/18 01/12/18 18:59 06:59 18:59 Intake Total 100 300 Output Total 350 Balance 100 -50 Weight 72.5 kg Intake: IV 100 Intake, IV Titration 100 Amount Ampicillin-Sulbactam 3 gm 100 In Sodium Chloride 0.9% 100 ml @ 100 mls/hr IVPB Q6HR [facility] Rx#:[id number] Oral 0 200 Output: Urine 350 Other: Voiding Method Toilet Toilet # Voids 1 - Exam Head normocephalic and atraumatic Neck supple no JVD no goiter no lymphadenopathy Lungs clear to auscultation bilaterally no wheezing or crackles Heart regular rate and rhythm S1-S2, no rub or gallop Abdomen is soft nontender nondistended positive bowel sounds no hepatosplenomegaly Extremities no edema. Right foot red in color cold to touch. Ulcers on the right great toe medial aspect and lateral aspect of the foot near the fifth toe heel ulcer present. No drainage noted. Extreme tenderness with palpation of the feet. Measurements taken by vascular surgeon please note his consult report. Left foot ulcer between the second and third toe Neuro alert and orientated to 3, no gross focal deficit - Labs CBC & Chem 7: 01/12/18 06:54 01/12/18 06:54 Labs: Abnormal Lab Results - Last 24 Hours (Table) 01/12/18 01/12/18 Range/Units 06:54 06:54 RBC 2.99 L (4.30-5.90) m/uL Hgb 9.1 L (13.0-17.5) gm/dL Hct 29.1 L (39.0-53.0) % Lymphocytes # 0.8 L (1.0-4.8) k/uL Total Bilirubin 0.1 L (0.2-1.3) mg/dL Total Protein 5.8 L (6.3-8.2) g/dL Albumin 3.3 L (3.5-5.0) g/dL Microbiology - Last 24 Hours (Table) 01/11/18 18:00 Gram Stain - Preliminary Foot - Right Wound Culture - Preliminary 01/11/18 18:00 Gram Stain - Preliminary Foot - Left Wound Culture - Preliminary 01/11/18 18:00 Anaerobic Culture - Preliminary Foot - Right 01/11/18 18:00 Anaerobic Culture - Preliminary Foot - Left Assessment and Plan Plan: 1. Right lower extremity critical limb ischemia with multiple foot and toe wounds: Patient evaluated by vascular surgery. She is scheduled for arteriogram. Continue [place] as needed for pain. Plan for Dr. Pena is to proceed with debridement on Sunday will continue IV antibiotic at this time, patient is receiving IV Unasyn 3 g every 6 hours. Wound cultures are still pending. 2. Vascular ulcers of both feet. Ranging from stage II to stage III. Infectious disease will be consulted 3. Hyperkalemia: Discontinue Aldactone. Potassium 5.4. Give a dose of Kayexalate. Repeat potassium level in a.m. 4. History of severe peripheral vascular disease. Patient's aspirin and Plavix currently on hold for procedure today 5. History of coronary disease with previous CABG in 2016 6. History of abdominal aortic aneurysm 4 cm in size. Followed by Dr. Pena. Has abdominal ultrasound every 6 months 7. Iron deficiency anemia: Hemoglobin 9.5. No active signs of bleeding. Iron supplement. He reports last colonoscopy over 5 years ago 8. Hyperlipidemia continue statin 9. Essential hypertension: Blood pressures are stable and slightly on the lower side. Place parameters to hold lisinopril. Pressure less than 120 and coronary for supple pressure less than 110 and heart rate less than 55 GI prophylaxis Pepcid and will await starting DVT prophylaxis until after patient's surgical procedure
[2018-01-12] MEDS: SODIUM CHLORIDE 0.9% 1,000 ML IV SCH (13:38)
--- NOTE | 2018-01-12 14:03 | ECHOF ---
Referral Reason:new murmur, check EF MEASUREMENTS -------- HEIGHT: 172.7 cm WEIGHT: 72.1 kg BP: 143/68 RVIDd: 3.4 cm (< 3.3) IVSd: 1.2 cm (0.6 - 1.1) LVIDd: 4.2 cm (3.9 - 5.3) LVPWd: 1.0 cm (0.6 - 1.1) IVSs: 1.6 cm LVIDs: 2.7 cm LVPWs: 1.8 cm LA Diam: 3.5 cm (2.7 - 3.8) LAESV Index (A-L): 20.72 ml/m Ao Diam: 2.9 cm (2.0 - 3.7) AV Cusp: 1.7 cm (1.5 - 2.6) MV EXCURSION: 16.594 mm (> 18.000) MV EF SLOPE: 53 mm/s (70 - 150) EPSS: 0.6 cm MV E Charles: 0.76 m/s MV DecT: 272 ms MV A Charles: 1.06 m/s MV E/A Ratio: 0.72 AV maxP.52 mmHg AV meanP.18 mmHg FINDINGS -------- Sinus rhythm. This was a technically difficult study with suboptimal views. The left ventricular size is normal. There is borderline concentric left ventricular hypertrophy. Overall left ventricular systolic function is moderately impaired with, an EF between 35 - 40 %. M id inferoseptal LV wall motion is hypokinetic. Apical inferior LV wall motion is hypokinetic. A pical septum LV wall motion is hypokinetic. [place] Hypokinesis. The right ventricle is mildly enlarged. Normal LA size by volume 22+/-6 ml/m2. The right atrium is normal in size. 5 ml of Lumason was utilized for enhancement of images. There is mild aortic valve sclerosis. There is mild aortic stenosis present. Peak/mean gradient a cross the Aortic Valve is 14.52mmHg / 8.18mmHg. The mitral valve leaflets are mildly thickened. Mild mitral annular calcification present. The tricuspid valve appears structurally normal. The pulmonic valve was not well visualized. The aortic root size is normal. Normal inferior vena cava with normal inspiratory collapse consistent with estimated right atrial pre ssure of 5 mmHg. There is no pericardial effusion. CONCLUSIONS -------- 1. Sinus rhythm. 2. This was a technically difficult study with suboptimal views. 3. The left ventricular size is normal. 4. There is borderline concentric left ventricular hypertrophy. 5. Mid inferoseptal LV wall motion is hypokinetic. 6. Apical inferior LV wall motion is hypokinetic. 7. Apical septum LV wall motion is hypokinetic. 8. [place] Hypokinesis. 9. The right ventricle is mildly enlarged. 10. Normal LA size by volume 22+/-6 ml/m2. 11. The right atrium is normal in size. 12. 5 ml of Lumason was utilized for enhancement of images. 13. There is mild aortic valve sclerosis. 14. There is mild aortic stenosis present. 15. Peak/mean gradient across the Aortic Valve is 14.52mmHg / 8.18mmHg. 16. The mitral valve leaflets are mildly thickened. 17. Mild mitral annular calcification present. 18. The tricuspid valve appears structurally normal. 19. The pulmonic valve was not well visualized. 20. The aortic root size is normal. 21. Normal inferior vena cava with normal inspiratory collapse consistent with estimated right atrial pressure of 5 mmHg. 22. There is no pericardial effusion. [employer]: [place] RDCS
[2018-01-12] MEDS: MONTELUKAST 10 MG TAB PO SCH (20:14)
[2018-01-12] MEDS: ATORVASTATIN 40 MG TAB PO SCH (20:14)
[2018-01-13] MEDS: AMPICILLIN-SULBACTAM 3 GM in SODIUM CHLORIDE 0.9% 100 ML IVPB SCH ×3 (05:10→17:58)
[2018-01-13] MEDS: FERROUS SULFATE 325 MG TAB PO SCH ×2 (08:07→20:21)
[2018-01-13] MEDS: CARVEDILOL 6.25 MG TAB PO SCH (08:07)
[2018-01-13] MEDS: FAMOTIDINE 20 MG TAB PO SCH (08:07)
[2018-01-13] MEDS: SODIUM CHLORIDE 0.9% 1,000 ML IV SCH (08:08)
[2018-01-13 08:51] LABS: Basophils % (A) 1 %; Eosinophils # (A) 0.2 k/uL (0-0.7); Eosinophils % (A) 3 %; HGB 8.6 gm/dL (13.0-17.5); Lymphocytes # (A) 0.8 k/uL (1.0-4.8); Lymphocytes % (A) 13 %; MCH 30.1 pg (25.0-35.0); MCHC 30.8 g/dL (31.0-37.0); MCV 97.8 fL (80.0-100.0); Mean Platelet Volume 6.7; Monocytes # (A) 0.7 k/uL (0-1.0); Monocytes % (A) 11 %; Neutrophils # (A) 4.1 k/uL (1.3-7.7); Neutrophils % (A) 69 %; Platelet Count 409 k/uL (150-450); RBC 2.87 m/uL (4.30-5.90); RDW 14.1 % (11.5-15.5)
[2018-01-13 09:01] LABS: ALT 21 U/L (21-72); AST 18 U/L (17-59); Albumin 3.3 g/dL (3.5-5.0); Alkaline Phosphatase 56 U/L (38-126); Blood Urea Nitrogen 9 mg/dL (9-20); Calcium 9.1 mg/dL (8.4-10.2); Carbon Dioxide 27 mmol/L (22-30); Chloride 104 mmol/L (98-107); Glucose 100 mg/dL (74-99); Potassium 4.8 mmol/L (3.5-5.1); Total Bilirubin <0.1 mg/dL (0.2-1.3); Total Protein 5.8 g/dL (6.3-8.2)
[2018-01-13 09:02] LABS: Anion Gap 8 mmol/L; Sodium 139 mmol/L (137-145)
[2018-01-13] MEDS: MULTIVITAMINS, THERA 1 EACH TAB PO SCH (12:39)
--- NOTE | 2018-01-13 17:10 | P.PN ---
Subjective Progress Note Date: 01/13/18 This is a 67-year-old male, patient of [facility]. He has a known past medical history of coronary artery disease with previous CABG in February 2016 , peripheral vascular disease and a 4 cm abdominal aortic aneurysm, and iron deficiency anemia. Patient also has bilateral feet wounds. His PCP started him on Augmentin on Sunday. And refer him to a vascular surgeon. Patient went to see the vascular surgeon yesterday and had testing completed. Patient was told that the testing results were abnormal and to present to the emergency room. According to the vascular surgeon patient had undergone an arterial Doppler with ABIs that demonstrated severe disease in the right lower extremity. Patient also has significant pain in the bilateral feet, right worse than left. Right foot is increasing in redness cold to touch. There are multiple wounds on the right foot including heel 1 along the greater toe and I' ll near the fifth toe. Patient was admitted to the hospital for right lower extremity critical limb ischemia with multiple foot and toe wounds. Patient had arteriogram completed. And likely have further surgical intervention later today with Dr. Padilla. Patient denies any chest pain or shortness breath. Denies any nausea or vomiting. Denies any bowel movement changes or urinary symptoms. Denies any fever chills or sweats. His wounds on his feet have been ongoing for about the past month. He denies any history of diabetes. On 01/12/2018 Patient is alert and oriented in no distress, pain is reasonably well controlled receiving IV antibiotics, no fever or chills no headache no dizziness, no chest pain or shortness of breath no cough, no nausea or vomiting no abdominal pain no diarrhea and no urinary symptoms. On 01/13/2018 patient is alert and oriented 3 in no apparent distress, pain is well-controlled he denies any complaints at this time there is no fever or chills no headache or dizziness no cough no chest pain no shortness of breath no nausea or vomiting no abdominal pain no diarrhea and no urinary symptoms. Objective - Vital Signs Vital signs: Vital Signs Temp 99.2 F 01/13/18 15:00 Pulse 95 01/13/18 15:00 Resp 18 01/13/18 15:00 BP 109/68 01/13/18 15:00 Pulse Ox 92 L 01/13/18 15:00 Intake & Output 01/12/18 01/13/18 01/13/18 18:59 06:59 18:59 Intake Total 240 500 200 Output Total 1800 Balance 240 -1300 200 Intake: Intake, IV Titration 200 Amount Ampicillin-Sulbactam 3 gm 200 In Sodium Chloride 0.9% 100 ml @ 100 mls/hr IVPB Q6HR [facility] Rx#:[id number] Oral 240 500 Output: Urine 1800 Other: Voiding Method Toilet # Voids 2 # Bowel Movements 0 - Exam Head normocephalic and atraumatic Neck supple no JVD no goiter no lymphadenopathy Lungs clear to auscultation bilaterally no wheezing or crackles Heart regular rate and rhythm S1-S2, no rub or gallop Abdomen is soft nontender nondistended positive bowel sounds no hepatosplenomegaly Extremities no edema. Right foot red in color cold to touch. Ulcers on the right great toe medial aspect and lateral aspect of the foot near the fifth toe heel ulcer present. No drainage noted. Extreme tenderness with palpation of the feet. Measurements taken by vascular surgeon please note his consult report. Left foot ulcer between the second and third toe Neuro alert and orientated to 3, no gross focal deficit - Labs CBC & Chem 7: 01/13/18 07:44 01/13/18 07:44 Labs: Abnormal Lab Results - Last 24 Hours (Table) 01/13/18 01/13/18 Range/Units 07:44 07:44 RBC 2.87 L (4.30-5.90) m/uL Hgb 8.6 L (13.0-17.5) gm/dL Hct 28.0 L (39.0-53.0) % MCHC 30.8 L (31.0-37.0) g/dL Lymphocytes # 0.8 L (1.0-4.8) k/uL Glucose 100 H (74-99) mg/dL Total Bilirubin <0.1 L (0.2-1.3) mg/dL Total Protein 5.8 L (6.3-8.2) g/dL Albumin 3.3 L (3.5-5.0) g/dL Microbiology - Last 24 Hours (Table) 01/11/18 18:00 Gram Stain - Preliminary Foot - Right Wound Culture - Preliminary Gram Neg Bacilli Presumptive Staph aureus 01/11/18 18:00 Gram Stain - Preliminary Foot - Left Wound Culture - Preliminary Gram Neg Bacilli Assessment and Plan Plan: 1. Right lower extremity critical limb ischemia with multiple foot and toe wounds: Patient evaluated by vascular surgery. She is scheduled for arteriogram. Continue [place] as needed for pain. Plan for Dr. Pena is to proceed with debridement on Sunday will continue IV antibiotic at this time, patient is receiving IV Unasyn 3 g every 6 hours. Wound cultures are still pending. 2. Vascular ulcers of both feet. Ranging from stage II to stage III. Infectious disease will be consulted 3. Hyperkalemia: Discontinue Aldactone. Potassium 5.4. Give a dose of Kayexalate. Repeat potassium level in a.m. 4. History of severe peripheral vascular disease. Patient's aspirin and Plavix currently on hold for procedure today 5. History of coronary disease with previous CABG in 2016 6. History of abdominal aortic aneurysm 4 cm in size. Followed by Dr. Pena. Has abdominal ultrasound every 6 months 7. Iron deficiency anemia: Hemoglobin 9.5. No active signs of bleeding. Iron supplement. He reports last colonoscopy over 5 years ago 8. Hyperlipidemia continue statin 9. Essential hypertension: Blood pressures are stable and slightly on the lower side. Place parameters to hold lisinopril. Pressure less than 120 and coronary for supple pressure less than 110 and heart rate less than 55 GI prophylaxis Pepcid and will await starting DVT prophylaxis until after patient's surgical procedure
[2018-01-13] MEDS: ATORVASTATIN 40 MG TAB PO SCH (20:21)
[2018-01-13] MEDS: MONTELUKAST 10 MG TAB PO SCH (20:21)
[2018-01-13] MEDS: HYDROcodone/APAP 5-325MG 1 EACH TAB PO PRN (20:21)
[2018-01-13] MEDS: COLLAGENASE 250 UNIT/GM OINTMENT 30 GM TUBE TOPICAL SCH (22:06)
[2018-01-14] MEDS: CEFEPIME 2 GM in SODIUM CHLORIDE 0.9% 50 ML IVPB SCH ×3 (00:10→20:40)
--- NOTE | 2018-01-14 00:10 | PN ---
PROGRESS NOTE DATE OF SERVICE: 01/13/2018. REASON FOR FOLLOWUP: Bilateral feet wound with osteomyelitis, right foot fifth toe. INTERVAL HISTORY: The patient is afebrile. He has been breathing comfortably. Denies having any chest pain, shortness of breath or cough. No abdominal pain or any worsening pain in the right foot area. EXAMINATION: Blood pressure 109/68 with a pulse of 95, temperature of 99.2. He is 92% on room air. General description is an elderly male lying in bed in no distress. RESPIRATORY SYSTEM: Unlabored breathing, clear to auscultation anteriorly. HEART: S1, S2. Regular rate and rhythm. ABDOMEN: Soft, no tenderness. Right foot wound is currently dressed up, no obvious drainage on the dressing. LABS: Hemoglobin 8.7, white count 6.0, BUN of 9, creatinine 0.72. Culture from the right foot showing MSSA Serratia marcescens. DIAGNOSTIC IMPRESSION AND PLAN: Patient with bilateral foot wound, mostly involving the right big toe and the right fifth toe at the base, which shows mostly evidence of osteomyelitis clinically on the basis of radiological findings. Those cultures was showing MSSA with a culture Serratia marcescens. Antibiotic adjusted to cefazolin 2 g q.12. He will have surgical debridement tomorrow course deep cultures discharge antibiotics. Will check a sed rate for tomorrow. Continue supportive care. MMODL / IJN: [id number] /
[2018-01-14] MEDS: SODIUM CHLORIDE 0.9% 1,000 ML IV SCH (05:52)
[2018-01-14] MEDS: CARVEDILOL 6.25 MG TAB PO SCH (08:32)
[2018-01-14] MEDS: FAMOTIDINE 20 MG TAB PO SCH (08:32)
[2018-01-14] MEDS: FERROUS SULFATE 325 MG TAB PO SCH ×2 (08:32→20:42)
--- NOTE | 2018-01-14 08:50 | IR ---
EXAMINATION TYPE: IR angio abdominal w runoff DATE OF EXAM: 01/11/2018 COMPARISON: NONE HISTORY: Peripheral vascular occlusive disease. Fluoroscopy was provided to the referring clinician. See dictated report from cardiology. 9.6 minut es of fluoroscopy utilized.
[2018-01-14 10:16] LABS: Basophils % (A) 0 %; Eosinophils # (A) 0.1 k/uL (0-0.7); Eosinophils % (A) 1 %; HCT 29.6 % (39.0-53.0); HGB 9.2 gm/dL (13.0-17.5); Hypochromasia Slight; Lymphocytes # (A) 0.6 k/uL (1.0-4.8); Lymphocytes % (A) 7 %; MCH 30.5 pg (25.0-35.0); MCHC 31.2 g/dL (31.0-37.0); MCV 97.7 fL (80.0-100.0); Mean Platelet Volume 6.5; Monocytes # (A) 0.6 k/uL (0-1.0); Monocytes % (A) 6 %; Neutrophils # (A) 7.2 k/uL (1.3-7.7); Neutrophils % (A) 82 %; Platelet Count 431 k/uL (150-450); RBC 3.03 m/uL (4.30-5.90); RDW 13.9 % (11.5-15.5); WBC 8.8 k/uL (3.8-10.6)
[2018-01-14 10:26] LABS: ALT 25 U/L (21-72); AST 18 U/L (17-59); Albumin 3.6 g/dL (3.5-5.0); Alkaline Phosphatase 61 U/L (38-126); Anion Gap 10 mmol/L; Blood Urea Nitrogen 8 mg/dL (9-20); Calcium 9.4 mg/dL (8.4-10.2); Carbon Dioxide 26 mmol/L (22-30); Chloride 105 mmol/L (98-107); Glucose 85 mg/dL (74-99); Potassium 4.9 mmol/L (3.5-5.1); Sodium 141 mmol/L (137-145); Total Bilirubin 0.1 mg/dL (0.2-1.3); Total Protein 6.3 g/dL (6.3-8.2)
[2018-01-14] MEDS ORDERED: IV FLUID CONTINUATION 150 ML IV ONE (11:17)
[2018-01-14] MEDS ORDERED: ONDANSETRON 4 MG/2 ML VIAL IVP ONE (11:47)
[2018-01-14 11:48] LABS: C Reactive Protein <5.0 mg/L (<10.0)
[2018-01-14] MEDS ORDERED: LACTATED RINGERS 1,000 ML IV ONE (11:50)
[2018-01-14 11:56] LABS: Erythrocyte Sedimentation Rate 27 mm/hr (0-15)
[2018-01-14] MEDS ORDERED: fentaNYL (PF) 50 MCG/ML 2 ML AMP ONE (11:58)
[2018-01-14] MEDS ORDERED: PROPOFOL 10 MG/ML 20 ML VIAL IV ONE (11:58)
[2018-01-14] MEDS ORDERED: MIDAZOLAM 2 MG/2 ML VIAL ONE (11:58)
--- NOTE | 2018-01-14 12:29 | P.WCSRGD ---
Wound Ctr Surgical Debridement Date of Service: 01/14/18 Date of service: 01/14/2018 Surgeon: Jean Pre-and postop diagnosis: Ulcerations both feet with osteomyelitis and lower extremity occlusive disease Type of debridement: Excisional surgical including bone Chief complaint: ulcer of lateral left third toe, medial right great toe, lateral right forefoot, plantar right heel Anesthesia: MAC/IV sedation Signs of infection: Mild redness Extent of necrotic, devitalized or non-viable tissue: Nonviable skin, soft tissue, tendons, and bone Other material in the wound that is expected to inhibit healing or promote adjacent tissue breakdown: Same Degree of epithelialization: % Method and instrument: Surgical debridement with scalpel, curet, and rongeur Character of the wound after debridement: Clean bloody areas including bone beds Description of necrotic material present: Nonviable bone, skin, soft tissue , and tendon Description of tissue removed: Same Pre-debridement measurement: Lateral left third toe 0.7 x 0.8 medial right great toe 1.6 x 1, lateral right foot 1 x 1.5, plantar right heel 1.1 x 1.1 cm and 0.3, 0.4, 0.4, 0.3 cm in depth respectively Postoperative debridement measurement: 1.0 x 1.0, 2 x 1.5, 1.5 x 1.8, and 1.5 x 1.5, cm respectively and 1, 1.2, 1.3, and 0.6, cm in depth respectively Control of bleeding:Bleeding was easily controlled with saline moistened gauze and light pressure Post debridement dressing: Absorptive silver Patient tolerated procedure well
--- NOTE | 2018-01-14 12:44 | P.PN ---
Subjective Progress Note Date: 01/14/18 This is a 67-year-old male, patient of [facility]. He has a known past medical history of coronary artery disease with previous CABG in February 2016 , peripheral vascular disease and a 4 cm abdominal aortic aneurysm, and iron deficiency anemia. Patient also has bilateral feet wounds. His PCP started him on Augmentin on Sunday. And refer him to a vascular surgeon. Patient went to see the vascular surgeon yesterday and had testing completed. Patient was told that the testing results were abnormal and to present to the emergency room. According to the vascular surgeon patient had undergone an arterial Doppler with ABIs that demonstrated severe disease in the right lower extremity. Patient also has significant pain in the bilateral feet, right worse than left. Right foot is increasing in redness cold to touch. There are multiple wounds on the right foot including heel 1 along the greater toe and I' ll near the fifth toe. Patient was admitted to the hospital for right lower extremity critical limb ischemia with multiple foot and toe wounds. Patient had arteriogram completed. And likely have further surgical intervention later today with Dr. Padilla. Patient denies any chest pain or shortness breath. Denies any nausea or vomiting. Denies any bowel movement changes or urinary symptoms. Denies any fever chills or sweats. His wounds on his feet have been ongoing for about the past month. He denies any history of diabetes. On 01/12/2018 Patient is alert and oriented in no distress, pain is reasonably well controlled receiving IV antibiotics, no fever or chills no headache no dizziness, no chest pain or shortness of breath no cough, no nausea or vomiting no abdominal pain no diarrhea and no urinary symptoms. On 01/13/2018 patient is alert and oriented 3 in no apparent distress, pain is well-controlled he denies any complaints at this time there is no fever or chills no headache or dizziness no cough no chest pain no shortness of breath no nausea or vomiting no abdominal pain no diarrhea and no urinary symptoms. 01/14/2018 patient is scheduled for debridement of wounds on his feet. He did undergo arteriogram with runoff during this admission. Patient reports that his pain is controlled. Patient is currently on cefepime. Wound cultures are growing MSSA and Serratia marcescens. Patient denies any chest pain or shortness of breath. Denies any nausea or vomiting. Reports having bowel movements. Denies any burning with urination Objective - Vital Signs Vital signs: Vital Signs Temp 97.8 F 01/14/18 11:18 Pulse 79 01/14/18 11:18 Resp 16 01/14/18 11:18 BP 140/73 01/14/18 11:18 Pulse Ox 100 01/14/18 11:18 Intake & Output 01/13/18 01/14/18 01/14/18 18:59 06:59 18:59 Intake Total 200 250 Output Total 300 1600 5 Balance -100 -1600 245 Intake: IV 250 Intake, IV Titration 200 Amount Ampicillin-Sulbactam 3 gm 200 In Sodium Chloride 0.9% 100 ml @ 100 mls/hr IVPB Q6HR [facility] Rx#:[id number] Output: Urine 300 1600 Estimated Blood Loss 5 Other: Voiding Method Toilet Toilet Toilet Urinal # Voids 1 - Exam Head normocephalic Neck supple Lungs clear to auscultation bilaterally no wheezing or crackles Heart regular rate and rhythm. Positive murmur Abdomen is soft nontender nondistended positive bowel sounds no hepatosplenomegaly Extremities no edema Neuro alert and orientated to 3 - Labs CBC & Chem 7: 01/14/18 08:39 01/14/18 08:39 Labs: Abnormal Lab Results - Last 24 Hours (Table) 01/14/18 01/14/18 Range/Units 08:39 08:39 RBC 3.03 L (4.30-5.90) m/uL Hgb 9.2 L (13.0-17.5) gm/dL Hct 29.6 L (39.0-53.0) % Lymphocytes # 0.6 L (1.0-4.8) k/uL ESR 27 H (0-15) mm/hr BUN 8 L (9-20) mg/dL Total Bilirubin 0.1 L (0.2-1.3) mg/dL Microbiology - Last 24 Hours (Table) 01/11/18 18:00 Gram Stain - Preliminary Foot - Right Wound Culture - Preliminary Aeromonas hydrophila Staphylococcus aureus 01/11/18 18:00 Anaerobic Culture - Preliminary Foot - Right 01/11/18 18:00 Gram Stain - Preliminary Foot - Left Wound Culture - Preliminary Serratia marcescens Assessment and Plan Assessment: 1. Right lower extremity critical limb ischemia with multiple foot and toe wounds and evidence of osteomyelitis in the right foot. Wound cultures growing MSSA and Serratia Crawford since. Currently on cefepime. Underwent debridement today with Dr. Pena 2. Vascular ulcers of both feet. Ranging from stage II to stage III. Infectious disease following 3. Hyperkalemia: Resolved. Aldactone discontinued on admission 4. History of severe peripheral vascular disease. Patient's aspirin and Plavix currently on hold for procedure today 5. History of coronary disease with previous CABG in 2016 6. History of abdominal aortic aneurysm 4 cm in size. Followed by Dr. Pena. Has abdominal ultrasound every 6 months 7. Iron deficiency anemia: Hemoglobin 9.5. No active signs of bleeding. Iron supplement. He reports last colonoscopy over 5 years ago 8. Hyperlipidemia continue statin 9. Essential hypertension: Blood pressures are stable. Potassium level has improved we'll resume patient's lisinopril 2.5 mg at bedtime 10. Mild aortic stenosis noted on echo GI prophylaxis Pepcid and will await starting DVT prophylaxis until after patient's surgical procedure I performed an examination of the patient and discussed their management with the physician Paralegal Supervisor. I have reviewed the Physician Paralegal Supervisor's notes and agree with the documented findings and plan of care
[2018-01-14] MEDS: MORPHINE SULFATE 4 MG/ML SYRINGE IV ONE ×4 (12:45→13:05)
[2018-01-14] MEDS: fentaNYL (PF) 50 MCG/ML 2 ML AMP IV ONE ×2 (13:10→13:15)
[2018-01-14] MEDS: MULTIVITAMINS, THERA 1 EACH TAB PO SCH (13:59)
[2018-01-14] MEDS: HYDROcodone/APAP 5-325MG 1 EACH TAB PO PRN ×3 (15:24→23:05)
[2018-01-14] MEDS ORDERED: MORPHINE SULFATE 4 MG/ML SYRINGE IVP PRN (16:33)
[2018-01-14] MEDS: LISINOPRIL 2.5 MG TAB PO SCH (18:33)
[2018-01-14] MEDS: ATORVASTATIN 40 MG TAB PO SCH (20:42)
[2018-01-14] MEDS: MONTELUKAST 10 MG TAB PO SCH (20:43)
[2018-01-14] MEDS: COLLAGENASE 250 UNIT/GM OINTMENT 30 GM TUBE TOPICAL SCH (20:43)
--- NOTE | 2018-01-14 22:23 | PN ---
PROGRESS NOTE DATE OF SERVICE: 01/14/2018. REASON FOR FOLLOWUP: Bilateral feet ulceration with osteomyelitis on the right side. INTERVAL HISTORY: The patient is afebrile. The patient taken to OR and is status post surgical debridement of his right foot wound to the bone by Dr. Pena. The patient tolerated the procedure. Denies having any chest pain, shortness of breath: No abdominal pain, cough, or any diarrhea. EXAMINATION: Blood pressure is 122/74 with a pulse of 76, temperature 97.7. He is 99% on room air. General description is an elderly male lying in bed in no distress. Respiratory system: Unlabored breathing. Clear to auscultation anteriorly. Heart S1, S2. Regular rate and rhythm. Abdomen soft, no tenderness. Foot wound was dressed up, no obvious drainage on the dressing. LABS: Hemoglobin 9.2, white count 8.8 with a BUN of 10 8, creatinine 0.66. DIAGNOSTIC IMPRESSION AND PLAN: Patient with a polymicrobial wound with underlying osteomyelitis. Culture positive for MSSA and Klebsiella and Serratia marcescens. Currently on cefepime. The patient will get a PICC line for outpatient IV antibiotic therapy for at least 6 weeks. Continue supportive care. MMODL / IJN: [id number] /
[2018-01-14] MEDS: MORPHINE SULFATE 4 MG/ML SYRINGE IVP PRN (23:05)
[2018-01-15] MEDS: HYDROcodone/APAP 5-325MG 1 EACH TAB PO PRN ×6 (03:16→23:32)
[2018-01-15] MEDS: MORPHINE SULFATE 4 MG/ML SYRINGE IVP PRN ×6 (03:17→23:32)
[2018-01-15] MEDS: SODIUM CHLORIDE 0.9% 1,000 ML IV SCH ×2 (06:05→21:26)
[2018-01-15] MEDS: CARVEDILOL 6.25 MG TAB PO SCH (07:41)
[2018-01-15] MEDS: FERROUS SULFATE 325 MG TAB PO SCH ×2 (07:41→21:23)
[2018-01-15] MEDS: CEFEPIME 2 GM in SODIUM CHLORIDE 0.9% 50 ML IVPB SCH ×2 (07:41→21:23)
[2018-01-15] MEDS: FAMOTIDINE 20 MG TAB PO SCH (07:41)
[2018-01-15 08:27] LABS: Basophils % (A) 0 %; Eosinophils # (A) 0.2 k/uL (0-0.7); Eosinophils % (A) 3 %; HCT 29.4 % (39.0-53.0); Hypochromasia Moderate; Lymphocytes # (A) 0.8 k/uL (1.0-4.8); Lymphocytes % (A) 10 %; MCH 30.4 pg (25.0-35.0); MCHC 30.7 g/dL (31.0-37.0); MCV 98.9 fL (80.0-100.0); Mean Platelet Volume 6.8; Monocytes # (A) 0.8 k/uL (0-1.0); Monocytes % (A) 10 %; Neutrophils # (A) 5.7 k/uL (1.3-7.7); Neutrophils % (A) 74 %; Platelet Count 378 k/uL (150-450); RBC 2.97 m/uL (4.30-5.90); RDW 13.9 % (11.5-15.5); WBC 7.7 k/uL (3.8-10.6)
[2018-01-15 08:44] LABS: ALT 23 U/L (21-72); AST 19 U/L (17-59); Albumin 3.5 g/dL (3.5-5.0); Alkaline Phosphatase 61 U/L (38-126); Anion Gap 9 mmol/L; Blood Urea Nitrogen 8 mg/dL (9-20); Calcium 9.2 mg/dL (8.4-10.2); Carbon Dioxide 28 mmol/L (22-30); Chloride 102 mmol/L (98-107); Glucose 89 mg/dL (74-99); Potassium 4.7 mmol/L (3.5-5.1); Sodium 139 mmol/L (137-145); Total Bilirubin 0.1 mg/dL (0.2-1.3); Total Protein 6.1 g/dL (6.3-8.2)
--- NOTE | 2018-01-15 10:30 | P.PN ---
Progress Note - Text Progress Note Date: 01/15/18 Subjective: No complaints today. Objective: The area of his ulcers is fairly clean. Assessment: Stable ulcers 3 on the right foot and 1 on the left foot with osteomyelitis with large areas of bone involved on the third toe on the left foot and the great toe and the fifth toe on the right foot. He is a poor candidate for revascularization due to extremely calcific and ectatic arteries. He has large collaterals and on the right side at least no total obstructions. Therefore, a bypass could potentially closedown by collateral circulation. Plan: I discussed in detail the options with the patient. I recommended we proceed with amputation of the great toe and the fifth toe possibly on the right foot and the third toe on the left foot. He appears to understand all the implications of this. He agrees to proceed. I also discussed with him the possible need for an ECF on discharge to remain nonweightbearing until these amputation sites are healed. He appears to understand this and seems to be in agreement.
[2018-01-15 11:04] VITALS: BMI 24.3
[2018-01-15] MEDS: MULTIVITAMINS, THERA 1 EACH TAB PO SCH (11:07)
--- NOTE | 2018-01-15 11:27 | P.PN ---
Subjective Progress Note Date: 01/15/18 This is a 67-year-old male, patient of [facility]. He has a known past medical history of coronary artery disease with previous CABG in February 2016 , peripheral vascular disease and a 4 cm abdominal aortic aneurysm, and iron deficiency anemia. Patient also has bilateral feet wounds. His PCP started him on Augmentin on Sunday. And refer him to a vascular surgeon. Patient went to see the vascular surgeon yesterday and had testing completed. Patient was told that the testing results were abnormal and to present to the emergency room. According to the vascular surgeon patient had undergone an arterial Doppler with ABIs that demonstrated severe disease in the right lower extremity. Patient also has significant pain in the bilateral feet, right worse than left. Right foot is increasing in redness cold to touch. There are multiple wounds on the right foot including heel 1 along the greater toe and I' ll near the fifth toe. Patient was admitted to the hospital for right lower extremity critical limb ischemia with multiple foot and toe wounds. Patient had arteriogram completed. And likely have further surgical intervention later today with Dr. Padilla. Patient denies any chest pain or shortness breath. Denies any nausea or vomiting. Denies any bowel movement changes or urinary symptoms. Denies any fever chills or sweats. His wounds on his feet have been ongoing for about the past month. He denies any history of diabetes. On 01/12/2018 Patient is alert and oriented in no distress, pain is reasonably well controlled receiving IV antibiotics, no fever or chills no headache no dizziness, no chest pain or shortness of breath no cough, no nausea or vomiting no abdominal pain no diarrhea and no urinary symptoms. On 01/13/2018 patient is alert and oriented 3 in no apparent distress, pain is well-controlled he denies any complaints at this time there is no fever or chills no headache or dizziness no cough no chest pain no shortness of breath no nausea or vomiting no abdominal pain no diarrhea and no urinary symptoms. 01/14/2018 patient is scheduled for debridement of wounds on his feet. He did undergo arteriogram with runoff during this admission. Patient reports that his pain is controlled. Patient is currently on cefepime. Wound cultures are growing MSSA and Serratia marcescens. Patient denies any chest pain or shortness of breath. Denies any nausea or vomiting. Reports having bowel movements. Denies any burning with urination 01/15/2018 patient is scheduled for possible amputation of 3 toes tomorrow. He did before the great toe and the fifth toe on the right foot and third toe on the left foot with Dr. Pena. Patient is reporting that his pain is controlled. He denies any chest pain shortness of breath. Denies any nausea or vomiting. Denies any bowel movement changes or urinary symptoms. Objective - Vital Signs Vital signs: Vital Signs Temp 98.3 F 01/15/18 05:30 Pulse 91 01/15/18 05:30 Resp 16 01/15/18 05:30 BP 111/65 01/15/18 05:30 Pulse Ox 98 01/15/18 05:30 Intake & Output 01/14/18 01/15/18 01/15/18 18:59 06:59 18:59 Intake Total 850 Output Total 5 1150 Balance 845 -1150 Weight 72.5 kg Intake: IV 350 Intake, IV Titration 500 Amount Cefepime 2 gm In Sodium 100 Chloride 0.9% 50 ml @ 100 mls/hr IVPB Q12HR [facility] Rx #:[id number] Sodium Chloride 0.9% 1, 400 000 ml @ 50 mls/hr IV . Q20H [facility] Rx#:[id number] Output: Urine 1150 Estimated Blood Loss 5 Other: Voiding Method Toilet Toilet Urinal Urinal # Voids 2 - Exam Head normocephalic Neck supple Lungs clear to auscultation bilaterally no wheezing or crackles Heart regular rate and rhythm. Positive murmur Abdomen is soft nontender nondistended positive bowel sounds no hepatosplenomegaly Extremities no edema. Feet are wrapped in bandage Neuro alert and orientated to 3 - Labs CBC & Chem 7: 01/15/18 08:05 01/15/18 08:05 Labs: Abnormal Lab Results - Last 24 Hours (Table) 01/14/18 01/15/18 01/15/18 Range/Units 08:39 08:05 08:05 RBC 2.97 L (4.30-5.90) m/uL Hgb 9.0 L (13.0-17.5) gm/dL Hct 29.4 L (39.0-53.0) % MCHC 30.7 L (31.0-37.0) g/dL Lymphocytes # 0.8 L (1.0-4.8) k/uL ESR 27 H (0-15) mm/hr BUN 8 L (9-20) mg/dL Creatinine 0.65 L (0.66-1.25) mg/dL Total Bilirubin 0.1 L (0.2-1.3) mg/dL Total Protein 6.1 L (6.3-8.2) g/dL Microbiology - Last 24 Hours (Table) 01/11/18 18:00 Anaerobic Culture - Final Foot - Left Anaerobic Gm Negative Bacilli 01/11/18 18:00 Gram Stain - Final Foot - Right Wound Culture - Final Aeromonas hydrophila Staphylococcus aureus Serratia marcescens 01/11/18 18:00 Gram Stain - Final Foot - Left Wound Culture - Final Serratia marcescens Klebsiella oxytoca Assessment and Plan Assessment: 1. Right lower extremity critical limb ischemia with multiple foot and toe wounds and evidence of osteomyelitis in the right foot. Wound cultures growing MSSA and Serratia Macesens, and Klebsiella. Currently on cefepime. Patient had undergone debridement of the feet yesterday. Has been followed closely by Dr. Pena. He is recommending amputation of possibly 3 toes to on the right and one on the left tomorrow. We'll discuss with infectious disease about PICC line placement 2. Vascular ulcers of both feet. Ranging from stage II to stage III. Infectious disease following 3. Hyperkalemia: Resolved. Aldactone discontinued on admission 4. History of severe peripheral vascular disease. Patient's aspirin and Plavix currently on hold for procedure today 5. History of coronary disease with previous CABG in 2016 6. History of abdominal aortic aneurysm 4 cm in size. Followed by Dr. Pena. Has abdominal ultrasound every 6 months 7. Iron deficiency anemia: Hemoglobin 9.5. No active signs of bleeding. Iron supplement. He reports last colonoscopy over 5 years ago 8. Hyperlipidemia continue statin 9. Essential hypertension: Blood pressures are stable. Potassium level has improved we'll resume patient's lisinopril 2.5 mg at bedtime 10. Mild aortic stenosis noted on echo GI prophylaxis Pepcid and DVT prophylaxis SCDs. Patient is scheduled for surgical procedure tomorrow and unable to start anticoagulation for DVT prophylaxis I performed an examination of the patient and discussed their management with the physician Edger Feeder. I have reviewed the Physician Edger Feeder's notes and agree with the documented findings and plan of care
[2018-01-15] MEDS ORDERED: ENOXAPARIN 40 MG/0.4 ML SYRINGE SQ STA (13:08)
[2018-01-15] MEDS ORDERED: LIDOCAINE 2% INJ 20 MG/ML SQ ONE (14:33)
--- NOTE | 2018-01-15 16:03 | PN ---
PROGRESS NOTE DATE OF SERVICE: 01/15/2018 REASON FOR FOLLOWUP: Right foot non-healing wound with underlying osteomyelitis, polymicrobial. INTERVAL HISTORY: The patient is afebrile. Patient is status post debridement of his wound done yesterday. The patient has been advised amputation of his right first and fifth toes and the third toe on the left side for complete healing of his wound. The patient denies having any chest pain or shortness of breath. No cough. No abdominal pain. PHYSICAL EXAMINATION: Blood pressure is 132/65 with a pulse of 61, temperature 97.9. He is 98% on room air. General description is an elderly male lying in bed in no distress. RESPIRATORY SYSTEM: Unlabored breathing. Clear to auscultation anteriorly. HEART: S1, S2. Regular rate and rhythm. ABDOMEN: Soft. No tenderness. Wounds are currently dressed up. No obvious drainage on the dressing. DIAGNOSTIC IMPRESSION AND PLAN: Patient with multiple wounds to the bilateral feet, mostly marked on the right foot with the first and fifth, with evidence of osteomyelitis, and multiple organisms have grown. The patient is currently covered with cefepime 2 grams q.12 hours, for which the patient needs a PICC line for outpatient IV antibiotic coverage. Await possible amputation tomorrow. Continue with supportive care. MMODL / IJN: [id number] /
[2018-01-15] MEDS: LISINOPRIL 2.5 MG TAB PO SCH (17:09)
[2018-01-15 17:42] LABS: Iron Saturation 10.08 (15.00-50.00)
[2018-01-15] MEDS ORDERED: DEXAMETHASONE SOD PHOSPHATE 10 MG/ML 1 ML VIAL IV ONE (20:50)
[2018-01-15] MEDS ORDERED: ONDANSETRON ODT 4 MG TAB PO ONE (20:50)
[2018-01-15] MEDS ORDERED: SCOPOLAMINE 1.5MG/72HR PATCH TRANSDERM ONE (20:50)
[2018-01-15] MEDS ORDERED: LIDOCAINE 1% 20 ML VIAL (10MG/ML) FOR IV START INTRADERMA PRN (20:50)
[2018-01-15] MEDS ORDERED: MIDAZOLAM 2 MG/2 ML VIAL IV PRN (20:50)
[2018-01-15] MEDS: ATORVASTATIN 40 MG TAB PO SCH (21:23)
[2018-01-15] MEDS: MONTELUKAST 10 MG TAB PO SCH (21:23)
[2018-01-15] MEDS: COLLAGENASE 250 UNIT/GM OINTMENT 30 GM TUBE TOPICAL SCH (21:26)
[2018-01-16] MEDS: HYDROcodone/APAP 5-325MG 1 EACH TAB PO PRN ×4 (04:48→21:00)
[2018-01-16] MEDS: MORPHINE SULFATE 4 MG/ML SYRINGE IVP PRN ×5 (04:48→23:17)
[2018-01-16] MEDS: CARVEDILOL 6.25 MG TAB PO SCH (08:31)
[2018-01-16 08:53] LABS: Basophils % (A) 1 %; Eosinophils # (A) 0.2 k/uL (0-0.7); Eosinophils % (A) 3 %; HCT 29.1 % (39.0-53.0); HGB 8.9 gm/dL (13.0-17.5); Hypochromasia Moderate; Lymphocytes # (A) 0.7 k/uL (1.0-4.8); Lymphocytes % (A) 11 %; MCH 30.3 pg (25.0-35.0); MCHC 30.7 g/dL (31.0-37.0); MCV 98.7 fL (80.0-100.0); Mean Platelet Volume 6.9; Monocytes # (A) 0.6 k/uL (0-1.0); Monocytes % (A) 9 %; Neutrophils # (A) 5.1 k/uL (1.3-7.7); Neutrophils % (A) 74 %; Platelet Count 375 k/uL (150-450); RBC 2.95 m/uL (4.30-5.90); RDW 14.1 % (11.5-15.5); WBC 6.9 k/uL (3.8-10.6)
--- NOTE | 2018-01-16 09:04 | IR ---
PICC LINE PLACEMENT: HISTORY: Infection requiring long-term antibiotic therapy PROCEDURE: Ultrasound and fluoroscopic guidance of PICC line placement. COMPLICATIONS: None ANESTHESIA: 1. 1% Lidocaine locally. FINDINGS/TECHNIQUE: The procedure was explained to the patient. The risks, complications, benefits and alternatives were discussed and any questions were answered. Informed consent was obtained. The patient was placed supine on the fluoroscopic table and prepped and draped in the usual sterile [facility] ion. Utilizing a 21 gauge needle and sonographic and fluoroscopic guidance, access in the vein was achieved and there is placement of a 0.018 guidewire. The vein is patent. A 4-F sheath was placed o ivan the guidewire. The guidewire and dilator were removed and a 4-F. PICC line was placed through th e sheath with the tip at the level of the SVC. The sheath was removed, the catheter was flushed and sutured into position. The patient was stable throughout the procedure and remained stable upon disc harge from the Department of Radiology. The vein puncture was patent under ultrasound. A haywood scale image was obtained to document patency of the vein punctured. All elements of the maximal barrier technique were utilized. FLUOROSCOPY TIME: 0.2 minute, one image submitted IMPRESSION: Successful PICC line placement under ultrasound and fluoroscopic guidance.
[2018-01-16 09:09] LABS: ALT 23 U/L (21-72); AST 20 U/L (17-59); Albumin 3.3 g/dL (3.5-5.0); Alkaline Phosphatase 56 U/L (38-126); Anion Gap 10 mmol/L; Blood Urea Nitrogen 10 mg/dL (9-20); Calcium 9.1 mg/dL (8.4-10.2); Carbon Dioxide 27 mmol/L (22-30); Chloride 102 mmol/L (98-107); Glucose 82 mg/dL (74-99); Potassium 4.6 mmol/L (3.5-5.1); Sodium 139 mmol/L (137-145); Total Bilirubin 0.2 mg/dL (0.2-1.3); Total Protein 5.9 g/dL (6.3-8.2)
[2018-01-16] MEDS: LACTATED RINGERS 1,000 ML IV SCH (09:30)
[2018-01-16] MEDS: FERROUS SULFATE 325 MG TAB PO SCH ×2 (09:30→20:11)
[2018-01-16] MEDS: FAMOTIDINE 20 MG TAB PO SCH (09:30)
[2018-01-16] MEDS: MULTIVITAMINS, THERA 1 EACH TAB PO SCH (09:41)
[2018-01-16] MEDS: CEFEPIME 2 GM in SODIUM CHLORIDE 0.9% 50 ML IVPB SCH ×2 (09:47→20:07)
--- NOTE | 2018-01-16 10:57 | CDI ---
Last Revision, August 2017 Documentation Clarification Form Date: January 16, 2018 From: Estrella Avila Admit Date: 01/10/2018 9:36:00 PM Patient Name: Temo Garcia Visit Number: [id number] ATTENTION: The Clinical Documentation Specialists (CDI) and [facility] Coding Staff appreciate your assistance in clarifying documentation. Please respond to the clarification below the line at the bottom and electronically sign. The CDI & [facility] Coding staff will review the response and follow-up if needed. Please note: Queries are made part of the Legal Health Record. If you have any questions, please contact the author of this message via ITS. Dr. Brad Frederick, CHF is charted in the consult notes and in the H&P: History/Risk Factors:. cad, cabf, pvd, abdominal aortic aneurysm, iron deficiency anemia, heart failure presented with chronic wound on foot Clinical Indicators: VS/Pulse on admission:T 99.0, P 88, R 20, 119/57, 97% RA Echocardiogram Results: ventricular systolic function is moderately impaired with an EF of 35-40% Treatment: monitor labs In your professional opinion, can you please clarify the acuity and type of CHF if known? Systolic Heart Failure: Acute Chronic Acute on Chronic Diastolic Heart Failure: Acute Chronic Acute on Chronic Systolic & Diastolic Heart Failure: Acute Chronic Acute on Chronic Heart Failure Unable to Determine Other, please specify Please continue to document in your progress notes and discharge summary in order to capture severity of illness and risk of mortality. Include clinical findings that support your diagnosis. MTDD
[2018-01-16] MEDS ORDERED: IV FLUID CONTINUATION 1,000 ML IV ONE (12:52)
[2018-01-16] MEDS ORDERED: LIDOCAINE 1% INJ 10MG/ML (20 ML MDV) ONE (13:20)
[2018-01-16] MEDS ORDERED: PROPOFOL 10 MG/ML 20 ML VIAL IV ONE (13:20)
[2018-01-16] MEDS ORDERED: fentaNYL (PF) 50 MCG/ML 2 ML AMP ONE (13:20)
[2018-01-16] MEDS ORDERED: SUCCINYLCHOLINE CHLORIDE 100 MG/5 ML SYR IV ONE (13:20)
[2018-01-16] MEDS ORDERED: MIDAZOLAM 2 MG/2 ML VIAL ONE (13:20)
--- NOTE | 2018-01-16 13:25 | PN ---
PROGRESS NOTE DATE OF SERVICE: 01/16/2018. REASON FOR FOLLOWUP: Right foot wound with secondary osteomyelitis. INTERVAL HISTORY: The patient is afebrile. He is currently breathing comfortably. Denies having any chest pain, shortness of breath, cough or abdominal pain or any worsening pain in the foot area. EXAMINATION: Blood pressure 118/72 with a pulse of 80, temperature is 97.8. He is 96% on room air. General description is an elderly male lying in bed in no distress. Respiratory system: Unlabored breathing, clear to auscultation anteriorly. Heart S1, S2. Regular rate and rhythm. Abdomen soft, no tenderness. Foot wounds are currently dressed up. No obvious drainage on the dressing. LABS: Hemoglobin 8.9, white count 6.9, BUN of 10, creatinine 0.65. DIAGNOSTIC IMPRESSION AND PLAN: Patient with right foot osteomyelitis with wound at the base of the fifth toe with multiple pathogens including MSSA serratia marcescens, currently on cefepime 2 g q.12 hours. Waiting for possible amputation. The patient will need to be on a short course of antibiotic post amputation for which PICC line will be placed. Continue supportive care. MMODL / IJN: [id number] /
--- NOTE | 2018-01-16 13:39 | P.PN ---
Subjective Progress Note Date: 01/16/18 This is a 67-year-old male, patient of [facility]. He has a known past medical history of coronary artery disease with previous CABG in February 2016 , peripheral vascular disease and a 4 cm abdominal aortic aneurysm, and iron deficiency anemia. Patient also has bilateral feet wounds. His PCP started him on Augmentin on Sunday. And refer him to a vascular surgeon. Patient went to see the vascular surgeon yesterday and had testing completed. Patient was told that the testing results were abnormal and to present to the emergency room. According to the vascular surgeon patient had undergone an arterial Doppler with ABIs that demonstrated severe disease in the right lower extremity. Patient also has significant pain in the bilateral feet, right worse than left. Right foot is increasing in redness cold to touch. There are multiple wounds on the right foot including heel 1 along the greater toe and I' ll near the fifth toe. Patient was admitted to the hospital for right lower extremity critical limb ischemia with multiple foot and toe wounds. Patient had arteriogram completed. And likely have further surgical intervention later today with Dr. Padilla. Patient denies any chest pain or shortness breath. Denies any nausea or vomiting. Denies any bowel movement changes or urinary symptoms. Denies any fever chills or sweats. His wounds on his feet have been ongoing for about the past month. He denies any history of diabetes. On 01/12/2018 Patient is alert and oriented in no distress, pain is reasonably well controlled receiving IV antibiotics, no fever or chills no headache no dizziness, no chest pain or shortness of breath no cough, no nausea or vomiting no abdominal pain no diarrhea and no urinary symptoms. On 01/13/2018 patient is alert and oriented 3 in no apparent distress, pain is well-controlled he denies any complaints at this time there is no fever or chills no headache or dizziness no cough no chest pain no shortness of breath no nausea or vomiting no abdominal pain no diarrhea and no urinary symptoms. 01/14/2018 patient is scheduled for debridement of wounds on his feet. He did undergo arteriogram with runoff during this admission. Patient reports that his pain is controlled. Patient is currently on cefepime. Wound cultures are growing MSSA and Serratia marcescens. Patient denies any chest pain or shortness of breath. Denies any nausea or vomiting. Reports having bowel movements. Denies any burning with urination 01/15/2018 patient is scheduled for possible amputation of 3 toes tomorrow. He did before the great toe and the fifth toe on the right foot and third toe on the left foot with Dr. Pena. Patient is reporting that his pain is controlled. He denies any chest pain shortness of breath. Denies any nausea or vomiting. Denies any bowel movement changes or urinary symptoms. On 01/16/2018 patient is alert and oriented 3 in no apparent distress he is scheduled for toe amputation today with Dr. Tamez, he is feeling well he denies any severe pain there is no fever or chills no headache no dizziness no chest pain or shortness of breath no nausea or vomiting no abdominal pain no diarrhea and no urinary symptoms Objective - Vital Signs Vital signs: Vital Signs Temp 97.8 F 01/16/18 07:00 Pulse 80 01/16/18 12:54 Resp 16 01/16/18 12:54 BP 171/76 01/16/18 12:54 Pulse Ox 98 01/16/18 12:54 Intake & Output 01/15/18 01/16/18 01/16/18 18:59 06:59 18:59 Intake Total 500 Output Total 3000 Balance -2500 Weight 72.5 kg 72.5 kg 72.5 kg Intake: Oral 500 Output: Urine 3000 Other: Voiding Method Toilet Toilet Urinal Urinal # Voids 1 # Bowel Movements 1 - Exam Head normocephalic and atraumatic Neck supple no JVD no goiter no lymphadenopathy Lungs clear to auscultation bilaterally no wheezing or crackles Heart regular rate and rhythm S1-S2, no rub or gallop Abdomen is soft nontender nondistended positive bowel sounds no hepatosplenomegaly Extremities no edema. Right foot red in color cold to touch. Ulcers on the right great toe medial aspect and lateral aspect of the foot near the fifth toe heel ulcer present. No drainage noted. Extreme tenderness with palpation of the feet. Measurements taken by vascular surgeon please note his consult report. Left foot ulcer between the second and third toe Neuro alert and orientated to 3, no gross focal deficit - Labs CBC & Chem 7: 01/16/18 08:21 01/16/18 08:21 Labs: Abnormal Lab Results - Last 24 Hours (Table) 01/15/18 01/16/18 01/16/18 Range/Units 08:05 08:21 08:21 RBC 2.95 L (4.30-5.90) m/uL Hgb 8.9 L (13.0-17.5) gm/dL Hct 29.1 L (39.0-53.0) % MCHC 30.7 L (31.0-37.0) g/dL Lymphocytes # 0.7 L (1.0-4.8) k/uL Creatinine 0.65 L (0.66-1.25) mg/dL Iron 38 L (65-175) ug/dL Iron Saturation 10.08 L (15.00-50.00) Total Protein 5.9 L (6.3-8.2) g/dL Albumin 3.3 L (3.5-5.0) g/dL Microbiology - Last 24 Hours (Table) 01/11/18 18:00 Anaerobic Culture - Final Foot - Right Assessment and Plan Plan: 1. Right lower extremity critical limb ischemia with multiple foot and toe wounds: Patient evaluated by vascular surgery. She is scheduled for arteriogram. Continue [place] as needed for pain. Plan for Dr. Pena is to proceed with toe amputations today. 2. Vascular ulcers of both feet. Ranging from stage II to stage III. Infectious disease will be consulted 3. Hyperkalemia: Discontinue Aldactone. Potassium 5.4. Give a dose of Kayexalate. Repeat potassium level in a.m. 4. History of severe peripheral vascular disease. Patient's aspirin and Plavix currently on hold for procedure today 5. History of coronary disease with previous CABG in 2016 6. History of abdominal aortic aneurysm 4 cm in size. Followed by Dr. Pena. Has abdominal ultrasound every 6 months 7. Iron deficiency anemia: Hemoglobin 9.5. No active signs of bleeding. Iron supplement. He reports last colonoscopy over 5 years ago 8. Hyperlipidemia continue statin 9. Essential hypertension: Blood pressures are stable and slightly on the lower side. Place parameters to hold lisinopril. Pressure less than 120 and coronary for supple pressure less than 110 and heart rate less than 55 GI prophylaxis Pepcid and will await starting DVT prophylaxis until after patient's surgical procedure
--- NOTE | 2018-01-16 14:27 | P.PCN ---
Date of Procedure: 01/16/18 Preoperative Diagnosis: Osteomyelitis left third toe and right great toe and fifth toe. Postoperative Diagnosis: Same Procedure(s) Performed: Amputation left third toe through distal metatarsal, amputation right great toe through proximal phalanx, amputation right fifth toe through metatarsal Anesthesia: MARKEL Surgeon: Bonifacio Pena Estimated Blood Loss (ml): 50 Pathology: other (Toes for disposal) Condition: stable Disposition: PACU Indications for Procedure: The patient has extensive osteomyelitis involving the distal metatarsal of the fifth toe on the right foot, through the interphalangeal joint on the right great toe, and through the proximal interphalangeal joint on the left third toe Operative Findings: Findings were consistent with large amounts of bone destruction in areas described. Tissue to appeared healthy proximal to our resection areas. Description of Procedure: With the patient spine position, under benefit of general anesthesia, we prepped and draped in standard fashion. We made a incision excluding the previous lateral ulceration on the left third toe and leaving a large portion of the rest of the toe for flap. We excised the distal aspect of the toe. We then used a rongeur to take the bone including what appeared to be metatarsal head. We fashioned our flap. We irrigated with saline and closed with 3-0 nylon. We then made a fishmouth incision on the right great toe. We took this directly down to the bone just proximal to the ulceration and the area of osteomyelitis. We removed the distal toe. We took the bone proximally until we had good soft tissue coverage. We irrigated with saline and closed with 3-0 nylon. We then excised the previous ulceration on the lateral right foot which was just proximal to the small toe laterally. Since the proximal phalanx of the small toe was also involved with osteomyelitis we fashioned a flap. We excised the toe. We fashioned our edges for closure. We then irrigated with saline. The metatarsal head been taken well above the area of osteomyelitis. We closed with 3-0 nylon. Sterile dressings were applied. The patient tolerated the procedure well and was taken recovery area in stable condition.
[2018-01-16] MEDS: fentaNYL (PF) 50 MCG/ML 2 ML AMP IV PRN ×4 (14:46→15:45)
[2018-01-16] MEDS ORDERED: MEPERIDINE 50 MG/ML SYRINGE IVP ONE ×2 (15:03→15:10)
[2018-01-16] MEDS ORDERED: SODIUM CHLORIDE 0.9% 1,000 ML IV ONE ×2 (15:36)
[2018-01-16] MEDS: LISINOPRIL 2.5 MG TAB PO SCH (17:04)
[2018-01-16] MEDS: SODIUM CHLORIDE 0.9% 1,000 ML IV SCH (17:10)
[2018-01-16] MEDS: COLLAGENASE 250 UNIT/GM OINTMENT 30 GM TUBE TOPICAL SCH (20:08)
[2018-01-16] MEDS: ATORVASTATIN 40 MG TAB PO SCH (20:11)
[2018-01-16] MEDS: MONTELUKAST 10 MG TAB PO SCH (20:12)
[2018-01-17] MEDS: HYDROcodone/APAP 5-325MG 1 EACH TAB PO PRN ×3 (01:04→09:24)
[2018-01-17] MEDS: LACTATED RINGERS 1,000 ML IV SCH ×2 (03:08→23:55)
[2018-01-17] MEDS: MORPHINE SULFATE 4 MG/ML SYRINGE IVP PRN ×3 (03:14→09:24)
[2018-01-17] MEDS: CARVEDILOL 6.25 MG TAB PO SCH (07:52)
[2018-01-17] MEDS: CEFEPIME 2 GM in SODIUM CHLORIDE 0.9% 50 ML IVPB SCH ×2 (07:52→23:51)
[2018-01-17] MEDS: FAMOTIDINE 20 MG TAB PO SCH (07:52)
[2018-01-17] MEDS: MULTIVITAMINS, THERA 1 EACH TAB PO SCH (07:53)
[2018-01-17] MEDS: SODIUM CHLORIDE 0.9% 1,000 ML IV SCH (07:53)
[2018-01-17] MEDS: FERROUS SULFATE 325 MG TAB PO SCH ×2 (07:53→23:47)
[2018-01-17 08:46] LABS: Basophils % (A) 0 %; Eosinophils # (A) 0.3 k/uL (0-0.7); Eosinophils % (A) 3 %; HCT 30.1 % (39.0-53.0); HGB 9.3 gm/dL (13.0-17.5); Hypochromasia Moderate; Lymphocytes # (A) 0.8 k/uL (1.0-4.8); Lymphocytes % (A) 8 %; MCH 30.1 pg (25.0-35.0); MCHC 30.8 g/dL (31.0-37.0); MCV 97.8 fL (80.0-100.0); Mean Platelet Volume 7.1; Monocytes # (A) 1.1 k/uL (0-1.0); Monocytes % (A) 11 %; Neutrophils % (A) 75 %; Platelet Count 397 k/uL (150-450); RBC 3.07 m/uL (4.30-5.90); RDW 13.8 % (11.5-15.5); WBC 9.4 k/uL (3.8-10.6)
[2018-01-17 09:08] LABS: ALT 20 U/L (21-72); AST 29 U/L (17-59); Alkaline Phosphatase 66 U/L (38-126); Anion Gap 12 mmol/L; Blood Urea Nitrogen 11 mg/dL (9-20); Calcium 9.3 mg/dL (8.4-10.2); Carbon Dioxide 23 mmol/L (22-30); Chloride 102 mmol/L (98-107); Glucose 77 mg/dL (74-99); Potassium 4.3 mmol/L (3.5-5.1); Sodium 137 mmol/L (137-145); Total Bilirubin 0.3 mg/dL (0.2-1.3); Total Protein 6.8 g/dL (6.3-8.2)
[2018-01-17] MEDS: MORPHINE ORAL SOLN 10 MG/5 ML CUP PO PRN ×4 (12:23→23:41)
--- NOTE | 2018-01-17 13:17 | P.PN ---
Subjective Progress Note Date: 01/17/18 This is a 67-year-old male, patient of [facility]. He has a known past medical history of coronary artery disease with previous CABG in February 2016 , peripheral vascular disease and a 4 cm abdominal aortic aneurysm, and iron deficiency anemia. Patient also has bilateral feet wounds. His PCP started him on Augmentin on Sunday. And refer him to a vascular surgeon. Patient went to see the vascular surgeon yesterday and had testing completed. Patient was told that the testing results were abnormal and to present to the emergency room. According to the vascular surgeon patient had undergone an arterial Doppler with ABIs that demonstrated severe disease in the right lower extremity. Patient also has significant pain in the bilateral feet, right worse than left. Right foot is increasing in redness cold to touch. There are multiple wounds on the right foot including heel 1 along the greater toe and I' ll near the fifth toe. Patient was admitted to the hospital for right lower extremity critical limb ischemia with multiple foot and toe wounds. Patient had arteriogram completed. And likely have further surgical intervention later today with Dr. Padilla. Patient denies any chest pain or shortness breath. Denies any nausea or vomiting. Denies any bowel movement changes or urinary symptoms. Denies any fever chills or sweats. His wounds on his feet have been ongoing for about the past month. He denies any history of diabetes. On 01/12/2018 Patient is alert and oriented in no distress, pain is reasonably well controlled receiving IV antibiotics, no fever or chills no headache no dizziness, no chest pain or shortness of breath no cough, no nausea or vomiting no abdominal pain no diarrhea and no urinary symptoms. On 01/13/2018 patient is alert and oriented 3 in no apparent distress, pain is well-controlled he denies any complaints at this time there is no fever or chills no headache or dizziness no cough no chest pain no shortness of breath no nausea or vomiting no abdominal pain no diarrhea and no urinary symptoms. 01/14/2018 patient is scheduled for debridement of wounds on his feet. He did undergo arteriogram with runoff during this admission. Patient reports that his pain is controlled. Patient is currently on cefepime. Wound cultures are growing MSSA and Serratia marcescens. Patient denies any chest pain or shortness of breath. Denies any nausea or vomiting. Reports having bowel movements. Denies any burning with urination 01/15/2018 patient is scheduled for possible amputation of 3 toes tomorrow. He did before the great toe and the fifth toe on the right foot and third toe on the left foot with Dr. Pena. Patient is reporting that his pain is controlled. He denies any chest pain shortness of breath. Denies any nausea or vomiting. Denies any bowel movement changes or urinary symptoms. 01/16/2018 patient is status post amputation of left third toe through distal metatarsal, an amp patient of the right great toe through proximal phalanx and a petition of the right fifth toe through the metatarsal. Patient also complaining of uncontrolled pain. His [place] will be increased to 7.5 every 4 hours as needed. Also having some constipation and was given prune juice also will add stool softeners. Patient denies any chest pain or shortness of breath. Denies any nausea or vomiting. Denies abdominal pain. Objective - Vital Signs Vital signs: Vital Signs Temp 98.3 F 01/17/18 07:00 Pulse 107 H 01/17/18 07:00 Resp 20 01/17/18 07:00 BP 141/74 01/17/18 07:00 Pulse Ox 100 01/17/18 07:00 Intake & Output 01/16/18 01/17/18 01/17/18 18:59 06:59 18:59 Intake Total 375 1200 Output Total 10 Balance 365 1200 Weight 72.5 kg Intake: IV 375 Oral 1200 Output: Estimated Blood Loss 10 Other: Voiding Method Toilet Urinal Urinal # Voids 1 4 - Exam Head normocephalic Neck supple Lungs clear to auscultation bilaterally no wheezing or crackles Heart regular rate and rhythm. Positive murmur Abdomen is soft nontender nondistended positive bowel sounds no hepatosplenomegaly Extremities no edema. Feet are wrapped in bandage Neuro alert and orientated to 3 - Labs CBC & Chem 7: 01/17/18 08:03 01/17/18 08:03 Labs: Abnormal Lab Results - Last 24 Hours (Table) 01/17/18 01/17/18 Range/Units 08:03 08:03 RBC 3.07 L (4.30-5.90) m/uL Hgb 9.3 L (13.0-17.5) gm/dL Hct 30.1 L (39.0-53.0) % MCHC 30.8 L (31.0-37.0) g/dL Lymphocytes # 0.8 L (1.0-4.8) k/uL Monocytes # 1.1 H (0-1.0) k/uL Creatinine 0.62 L (0.66-1.25) mg/dL ALT 20 L (21-72) U/L Assessment and Plan Assessment: 1. Right lower extremity critical limb ischemia with multiple foot and toe wounds and evidence of osteomyelitis in the right foot. Wound cultures growing MSSA and Serratia Macesens, and Klebsiella. Currently on cefepime. Patient has PICC line in place. Patient underwent amputation of one toe on the left and 2 toes on the right foot. Continue with wound care management antibiotics per infectious disease and Dr. Pena. 2. Vascular ulcers of both feet. Ranging from stage II to stage III. Infectious disease following 3. Hyperkalemia: Resolved. Aldactone discontinued on admission 4. History of severe peripheral vascular disease. Patient's aspirin and Plavix currently on hold for procedure today 5. History of coronary disease with previous CABG in 2016 6. History of abdominal aortic aneurysm 4 cm in size. Followed by Dr. Pena. Has abdominal ultrasound every 6 months 7. Iron deficiency anemia: Hemoglobin 9.5. No active signs of bleeding. Iron supplement. He reports last colonoscopy over 5 years ago 8. Hyperlipidemia continue statin 9. Essential hypertension: Blood pressures are stable. Potassium level has improved we'll resume patient's lisinopril 2.5 mg at bedtime 10. Mild aortic stenosis noted on echo GI prophylaxis Pepcid and DVT prophylaxis will start Lovenox [place] increased to 7.5 to help with pain control. We'll add Colace for constipation When patient is medically stable for discharge she will be discharged to [facility] for further rehabilitation and IV antibiotics. PICC line is in place I performed an examination of the patient and discussed their management with the physician Fender Repairer. I have reviewed the Physician Fender Repairer's notes and agree with the documented findings and plan of care
--- NOTE | 2018-01-17 14:13 | P.PN ---
Subjective Progress Note Date: 01/17/18 Principal diagnosis: Osteomyelitis left third toe and right great toe and fifth toe, history of coronary artery disease with previous CABG in February 2016, peripheral vascular disease and a 4 cm abdominal aortic aneurysm, and iron deficiency anemia The patient is sitting up to the bedside chair. He is in no acute distress. Physical therapy is at his bedside working with the patient. He continues to have pain to his bilateral feet, currently rates his pain 8 out of 10 on the pain scale. He is nonweightbearing on his right foot and partial weightbearing to his left foot. Objective - Vital Signs Vital signs: Vital Signs Temp 98.3 F 01/17/18 07:00 Pulse 107 H 01/17/18 07:00 Resp 20 01/17/18 07:00 BP 141/74 01/17/18 07:00 Pulse Ox 100 01/17/18 07:00 Intake & Output 01/16/18 01/17/18 01/17/18 18:59 06:59 18:59 Intake Total 375 1200 Output Total 10 Balance 365 1200 Weight 72.5 kg Intake: IV 375 Oral 1200 Output: Estimated Blood Loss 10 Other: Voiding Method Toilet Urinal Urinal # Voids 1 4 - Constitutional General appearance: Present: cooperative, no acute distress, thin - Respiratory Details: Lung sounds are essentially clear throughout. Respirations are symmetrical and nonlabored. Oxygen saturation are 98% on room air. - Cardiovascular Details: Regular rhythm and rate. S1 and S2 present, 3/6 pansystolic murmur. Trace +1 edema to his bilateral lower extremities. - Gastrointestinal Gastrointestinal Comment(s): Abdomen is soft, nontender nondistended. Active bowel sounds all 4, quarters. Tolerating oral intake. - Genitourinary Genitourinary Comment(s): Voiding clear yellow urine. - Integumentary Integumentary Comment(s): Skin is warm and dry. No clubbing or cyanosis present. Dressings clean and dry to his bilateral feet. Scant serosanguineous drainage. - Neurologic Neurologic: Present: CNII-XII intact - Musculoskeletal Musculoskeletal: Present: generalized weakness, strength equal bilaterally - Psychiatric Psychiatric: Present: A&O x's 3, appropriate affect, intact judgment & insight - Allied health notes Allied health notes reviewed: nursing - Labs CBC & Chem 7: 01/17/18 08:03 01/17/18 08:03 Labs: Abnormal Lab Results - Last 24 Hours (Table) 01/17/18 01/17/18 Range/Units 08:03 08:03 RBC 3.07 L (4.30-5.90) m/uL Hgb 9.3 L (13.0-17.5) gm/dL Hct 30.1 L (39.0-53.0) % MCHC 30.8 L (31.0-37.0) g/dL Lymphocytes # 0.8 L (1.0-4.8) k/uL Monocytes # 1.1 H (0-1.0) k/uL Creatinine 0.62 L (0.66-1.25) mg/dL ALT 20 L (21-72) U/L Assessment and Plan (1) Acute hematogenous osteomyelitis of both feet Current Visit: Yes Status: Acute Code(s): M86.071 - ACUTE HEMATOGENOUS OSTEOMYELITIS, RIGHT ANKLE AND FOOT; M86.072 - ACUTE HEMATOGENOUS OSTEOMYELITIS , LEFT ANKLE AND FOOT SNOMED Code(s): 528873718 (2) Anemia Current Visit: No Status: Acute Code(s): D64.9 - ANEMIA, UNSPECIFIED SNOMED Code(s): 672393981 (3) COPD (chronic obstructive pulmonary disease) Current Visit: No Status: Acute Code(s): J44.9 - CHRONIC OBSTRUCTIVE PULMONARY DISEASE, UNSPECIFIED SNOMED Code(s): 58508873 Plan: 1. Medical management per Dr. Frederick's recommendations. 2. Keep dressings intact to his bilateral feet, we will change his dressings tomorrow 01/18/2018. 3. Continue no weightbearing to his right foot and partial weightbearing to his left foot. 4. Increase activity as tolerated physical therapy and occupational therapy following. 5. Antibiotic management per Dr. Galo. 6. GI and DVT prophylaxis 7. More recommendations to follow based on the patient's clinical course. Time with Patient: Greater than 30
[2018-01-17] MEDS: HYDROcodone/APAP 7.5-325MG 1 EACH TAB PO PRN ×3 (14:16→22:27)
[2018-01-17] MEDS: DOCUSATE 100 MG CAP PO SCH ×2 (14:38→23:48)
[2018-01-17] MEDS: ENOXAPARIN 40 MG/0.4 ML SYRINGE SQ SCH (14:38)
--- NOTE | 2018-01-17 15:05 | PN ---
PROGRESS NOTE DATE OF SERVICE: 01/17/2018 REASON FOR FOLLOWUP: Right foot osteomyelitis. INTERVAL HISTORY: The patient was taken to the OR yesterday and the patient is status post amputation of the left 3rd toe along with amputation of right great toe and the right fifth toe. The patient has tolerated the procedure. The patient pain is currently controlled. The patient denies any chest pain, shortness of breath, cough, abdominal pain, or any diarrhea. EXAMINATION: Blood pressure 141/74, pulse of 107, temperature 98.3. He is 100% on room air. General description is an elderly male lying in bed in no distress. Respiratory system: Unlabored breathing. Clear to auscultation anteriorly. Heart S1, S2. Regular rate and rhythm. ABDOMEN: Soft. No tenderness. Right foot is currently dressed up. No obvious drainage on the dressing. LABS: White count is normal and creatinine is normal. DIAGNOSTIC IMPRESSION AND PLAN: Patient with nonhealing wound to the right foot, at the base of the fifth toe with underlying osteomyelitis. Culture has been positive for multiple pathogen including MSSA Serratia Marcescens. The patient is currently on cefepime and that will be continued for at least 2 weeks for now with close outpatient followup. MMODL / IJN: [id number] /
[2018-01-17] MEDS: LISINOPRIL 2.5 MG TAB PO SCH (17:10)
[2018-01-17] MEDS: MONTELUKAST 10 MG TAB PO SCH (23:47)
[2018-01-17] MEDS: ATORVASTATIN 40 MG TAB PO SCH (23:48)
[2018-01-17] MEDS: POLYETHYLENE GLYCOL 3350 17 GM POWD.PACK PO SCH (23:48)
[2018-01-17] MEDS: COLLAGENASE 250 UNIT/GM OINTMENT 30 GM TUBE TOPICAL SCH (23:49)
[2018-01-18] MEDS: HYDROcodone/APAP 7.5-325MG 1 EACH TAB PO PRN ×2 (02:38→06:32)
[2018-01-18] MEDS: MORPHINE ORAL SOLN 10 MG/5 ML CUP PO PRN ×3 (02:40→08:35)
[2018-01-18] MEDS: CARVEDILOL 6.25 MG TAB PO SCH (07:55)
[2018-01-18] MEDS: CEFEPIME 2 GM in SODIUM CHLORIDE 0.9% 50 ML IVPB SCH ×2 (07:55→20:08)
[2018-01-18] MEDS: ENOXAPARIN 40 MG/0.4 ML SYRINGE SQ SCH (07:56)
[2018-01-18] MEDS: DOCUSATE 100 MG CAP PO SCH ×2 (07:56→20:06)
[2018-01-18] MEDS: FERROUS SULFATE 325 MG TAB PO SCH ×2 (07:56→20:05)
[2018-01-18] MEDS: SODIUM CHLORIDE 0.9% 1,000 ML IV SCH (07:56)
[2018-01-18] MEDS: FAMOTIDINE 20 MG TAB PO SCH (07:56)
[2018-01-18] MEDS: MULTIVITAMINS, THERA 1 EACH TAB PO SCH (07:57)
[2018-01-18 08:35] LABS: ALT 18 U/L (21-72); AST 22 U/L (17-59); Albumin 3.8 g/dL (3.5-5.0); Alkaline Phosphatase 63 U/L (38-126); Anion Gap 11 mmol/L; Blood Urea Nitrogen 12 mg/dL (9-20); Calcium 9.2 mg/dL (8.4-10.2); Carbon Dioxide 26 mmol/L (22-30); Chloride 101 mmol/L (98-107); Glucose 86 mg/dL (74-99); Potassium 4.6 mmol/L (3.5-5.1); Sodium 138 mmol/L (137-145); Total Bilirubin 0.2 mg/dL (0.2-1.3); Total Protein 6.5 g/dL (6.3-8.2)
[2018-01-18 08:42] LABS: Basophils % (A) 1 %; Eosinophils # (A) 0.2 k/uL (0-0.7); Eosinophils % (A) 4 %; HGB 9.2 gm/dL (13.0-17.5); Hypochromasia Moderate; Lymphocytes # (A) 0.7 k/uL (1.0-4.8); Lymphocytes % (A) 12 %; MCHC 30.6 g/dL (31.0-37.0); MCV 97.8 fL (80.0-100.0); Mean Platelet Volume 7.1; Monocytes # (A) 0.7 k/uL (0-1.0); Monocytes % (A) 12 %; Neutrophils # (A) 4.3 k/uL (1.3-7.7); Neutrophils % (A) 69 %; Platelet Count 359 k/uL (150-450); RBC 3.07 m/uL (4.30-5.90); RDW 13.5 % (11.5-15.5); WBC 6.2 k/uL (3.8-10.6)
--- NOTE | 2018-01-18 08:51 | P.PN ---
Subjective Progress Note Date: 01/18/18 Principal diagnosis: Osteomyelitis left third toe and right great toe and fifth toe, history of coronary artery disease with previous CABG in February 2016, peripheral vascular disease and a 4 cm abdominal aortic aneurysm, and iron deficiency anemia POD #2 indication left third toe through distal metatarsal, amputation right great toe through proximal phalanx, amputation right fifth toe through metatarsals. The patient is sitting up in bed, he is in no acute distress. He continues to complain of pain to his bilateral feet, currently rates his pain 5 out of 10 on the pain scale. He is nonweightbearing on his right foot and partial weightbearing to his left foot. Dressings clean and dry to his bilateral feet. Objective - Vital Signs Vital signs: Vital Signs Temp 97.8 F 01/18/18 05:40 Pulse 97 01/18/18 05:40 Resp 17 01/18/18 05:40 BP 102/62 01/18/18 05:40 Pulse Ox 95 01/18/18 05:40 Intake & Output 01/17/18 01/18/18 01/18/18 18:59 06:59 18:59 Intake Total 1650 Output Total 1400 1050 Balance 250 -1050 Intake: Oral 1650 Output: Urine 1400 1050 Other: Voiding Method Urinal # Voids 2 0 - Constitutional General appearance: Present: cooperative, no acute distress - Respiratory Details: Lungs sounds essentially clear throughout. Respirations are symmetrical and nonlabored. Oxygen saturation Center 95% on room air. - Cardiovascular Details: Regular rhythm and rate. S1 and S2 present, 3/6 pansystolic murmur. +1 edema to his bilateral lower extremities. - Gastrointestinal Gastrointestinal Comment(s): Abdomen is soft, nontender and nondistended. Active bowel sounds all 4 abdominal quadrants. Tolerating oral intake. - Genitourinary Genitourinary Comment(s): Voiding clear yellow urine. 500 mL output in the last 8 hours. - Integumentary Integumentary Comment(s): Skin is warm and dry. No clubbing or cyanosis present. Dressings clean and dry to his bilateral feet. Scant serosanguineous drainage. - Neurologic Neurologic: Present: CNII-XII intact - Musculoskeletal Musculoskeletal Comment(s): Continues to be nonweightbearing to his right foot and partial weightbearing to his left foot. Musculoskeletal: Present: generalized weakness, strength equal bilaterally - Psychiatric Psychiatric: Present: A&O x's 3, appropriate affect, intact judgment & insight - Allied health notes Allied health notes reviewed: nursing - Labs CBC & Chem 7: 01/17/18 08:03 01/18/18 07:30 Labs: Abnormal Lab Results - Last 24 Hours (Table) 01/17/18 01/17/18 01/18/18 Range/Units 08:03 08:03 07:30 RBC 3.07 L (4.30-5.90) m/uL Hgb 9.3 L (13.0-17.5) gm/dL Hct 30.1 L (39.0-53.0) % MCHC 30.8 L (31.0-37.0) g/dL Lymphocytes # 0.8 L (1.0-4.8) k/uL Monocytes # 1.1 H (0-1.0) k/uL Creatinine 0.62 L (0.66-1.25) mg/dL ALT 20 L 18 L (21-72) U/L Assessment and Plan (1) Acute hematogenous osteomyelitis of both feet Current Visit: Yes Status: Acute Code(s): M86.071 - ACUTE HEMATOGENOUS OSTEOMYELITIS, RIGHT ANKLE AND FOOT; M86.072 - ACUTE HEMATOGENOUS OSTEOMYELITIS , LEFT ANKLE AND FOOT SNOMED Code(s): 534528935 (2) Anemia Current Visit: No Status: Acute Code(s): D64.9 - ANEMIA, UNSPECIFIED SNOMED Code(s): 241509550 (3) COPD (chronic obstructive pulmonary disease) Current Visit: No Status: Acute Code(s): J44.9 - CHRONIC OBSTRUCTIVE PULMONARY DISEASE, UNSPECIFIED SNOMED Code(s): 77591285 Plan: 1. Medical management per Dr. Frederick's recommendations. 2. Keep dressings intact to his bilateral feet, we will change his dressings this a.m.. 3. Continue no weightbearing to his right foot and partial weightbearing to his left foot. 4. Increase activity as tolerated physical therapy and occupational therapy following. 5. Antibiotic management per Dr. Galo. 6. GI and DVT prophylaxis 7. More recommendations to follow based on the patient's clinical course. Time with Patient: Greater than 30
[2018-01-18] MEDS: HYDROcodone/APAP 10-325MG 1 EACH TAB PO PRN ×3 (11:08→22:52)
[2018-01-18] MEDS ORDERED: LACTULOSE 20 GM/30 ML CUP PO ONE (11:49)
--- NOTE | 2018-01-18 11:55 | P.PN ---
Subjective Progress Note Date: 01/18/18 This is a 67-year-old male, patient of [facility]. He has a known past medical history of coronary artery disease with previous CABG in February 2016 , peripheral vascular disease and a 4 cm abdominal aortic aneurysm, and iron deficiency anemia. Patient also has bilateral feet wounds. His PCP started him on Augmentin on Sunday. And refer him to a vascular surgeon. Patient went to see the vascular surgeon yesterday and had testing completed. Patient was told that the testing results were abnormal and to present to the emergency room. According to the vascular surgeon patient had undergone an arterial Doppler with ABIs that demonstrated severe disease in the right lower extremity. Patient also has significant pain in the bilateral feet, right worse than left. Right foot is increasing in redness cold to touch. There are multiple wounds on the right foot including heel 1 along the greater toe and I' ll near the fifth toe. Patient was admitted to the hospital for right lower extremity critical limb ischemia with multiple foot and toe wounds. Patient had arteriogram completed. And likely have further surgical intervention later today with Dr. Padilla. Patient denies any chest pain or shortness breath. Denies any nausea or vomiting. Denies any bowel movement changes or urinary symptoms. Denies any fever chills or sweats. His wounds on his feet have been ongoing for about the past month. He denies any history of diabetes. On 01/12/2018 Patient is alert and oriented in no distress, pain is reasonably well controlled receiving IV antibiotics, no fever or chills no headache no dizziness, no chest pain or shortness of breath no cough, no nausea or vomiting no abdominal pain no diarrhea and no urinary symptoms. On 01/13/2018 patient is alert and oriented 3 in no apparent distress, pain is well-controlled he denies any complaints at this time there is no fever or chills no headache or dizziness no cough no chest pain no shortness of breath no nausea or vomiting no abdominal pain no diarrhea and no urinary symptoms. 01/14/2018 patient is scheduled for debridement of wounds on his feet. He did undergo arteriogram with runoff during this admission. Patient reports that his pain is controlled. Patient is currently on cefepime. Wound cultures are growing MSSA and Serratia marcescens. Patient denies any chest pain or shortness of breath. Denies any nausea or vomiting. Reports having bowel movements. Denies any burning with urination 01/15/2018 patient is scheduled for possible amputation of 3 toes tomorrow. He did before the great toe and the fifth toe on the right foot and third toe on the left foot with Dr. Pena. Patient is reporting that his pain is controlled. He denies any chest pain shortness of breath. Denies any nausea or vomiting. Denies any bowel movement changes or urinary symptoms. 01/16/2018 patient is status post amputation of left third toe through distal metatarsal, an amp patient of the right great toe through proximal phalanx and a petition of the right fifth toe through the metatarsal. Patient also complaining of uncontrolled pain. His [place] will be increased to 7.5 every 4 hours as needed. Also having some constipation and was given prune juice also will add stool softeners. Patient denies any chest pain or shortness of breath. Denies any nausea or vomiting. Denies abdominal pain. 01/17/2018 patient still feels that his pain is not controlled and is worried about going to [facility] too soon. Pain meds will be adjusted. He is also complaining of constipation. No abdominal pain Objective - Vital Signs Vital signs: Vital Signs Temp 97.8 F 01/18/18 05:40 Pulse 97 01/18/18 05:40 Resp 17 01/18/18 05:40 BP 102/62 01/18/18 05:40 Pulse Ox 95 01/18/18 05:40 Intake & Output 01/17/18 01/18/18 01/18/18 18:59 06:59 18:59 Intake Total 1650 Output Total 1400 1050 Balance 250 -1050 Intake: Oral 1650 Output: Urine 1400 1050 Other: Voiding Method Urinal # Voids 2 0 - Exam Head normocephalic Neck supple Lungs clear to auscultation bilaterally no wheezing or crackles Heart regular rate and rhythm. Positive murmur Abdomen is soft nontender nondistended positive bowel sounds no hepatosplenomegaly Extremities no edema. Feet are wrapped in bandage Neuro alert and orientated to 3 - Labs CBC & Chem 7: 01/18/18 07:30 01/18/18 07:30 Labs: Abnormal Lab Results - Last 24 Hours (Table) 01/18/18 01/18/18 Range/Units 07:30 07:30 RBC 3.07 L (4.30-5.90) m/uL Hgb 9.2 L (13.0-17.5) gm/dL Hct 30.0 L (39.0-53.0) % MCHC 30.6 L (31.0-37.0) g/dL Lymphocytes # 0.7 L (1.0-4.8) k/uL ALT 18 L (21-72) U/L Assessment and Plan Assessment: 1. Right lower extremity critical limb ischemia with multiple foot and toe wounds and evidence of osteomyelitis in the right foot. Wound cultures growing MSSA and Serratia Macesens, and Klebsiella. Currently on cefepime. Patient has PICC line in place. Patient underwent amputation of one toe on the left and 2 toes on the right foot. Continue with wound care management antibiotics per infectious disease and Dr. Pena. Awaiting final recommendations for Antibiotics for discharge 2. Vascular ulcers of both feet. Ranging from stage II to stage III. Infectious disease following 3. Hyperkalemia: Resolved. Aldactone discontinued on admission 4. History of severe peripheral vascular disease. Patient's aspirin and Plavix currently on hold for procedure today 5. History of coronary disease with previous CABG in 2016 6. History of abdominal aortic aneurysm 4 cm in size. Followed by Dr. Pena. Has abdominal ultrasound every 6 months 7. Iron deficiency anemia: Hemoglobin 9.5. No active signs of bleeding. Iron supplement. He reports last colonoscopy over 5 years ago 8. Hyperlipidemia continue statin 9. Essential hypertension: Blood pressures are stable. Potassium level has improved we'll resume patient's lisinopril 2.5 mg at bedtime 10. Mild aortic stenosis noted on echo 11. Constipation: Give lactulose GI prophylaxis Pepcid and DVT prophylaxis Lovenox [place] 10 and Ms Contin have been added for better pain control. Anticipate possible discharge to [facility] tomorrow if pain is controlled. I performed an examination of the patient and discussed their management with the physician Gasoline Attendant. I have reviewed the Physician Gasoline Attendant's notes and agree with the documented findings and plan of care
[2018-01-18 13:55] VITALS: RESP 18
--- NOTE | 2018-01-18 14:09 | PN ---
PROGRESS NOTE DATE OF SERVICE: 01/18/2018 REASON FOR FOLLOWUP: Right foot wound and osteomyelitis. INTERVAL HISTORY: The patient is afebrile. He is currently breathing comfortably. Denies having any chest pain, shortness of breath, abdominal pain, or any worsening pain to the bilateral foot wound area. Dressing was changed by the nurse practitioner for Dr. Pena. PHYSICAL EXAMINATION: Blood pressure 102/52 with a pulse of 97, temperature 97.8. He is 95% on room air. General description is elderly male up, in the bed in no distress. RESPIRATORY SYSTEM: Unlabored breathing, clear to auscultation anteriorly. HEART: S1, S2. Regular rate and rhythm. ABDOMEN: Soft, no tenderness. Mild edema of the feet. No obvious drainage on the dressing. LABS: Hemoglobin 9.8, white count 6.2, BUN of 12, creatinine 0.66. DIAGNOSTIC IMPRESSION AND PLAN: Patient with right foot 5th toe base osteomyelitis, status post amputation of the 5th digit on the right side and the left currently on cefepime. Recommendation to give patient cefepime 2 g q.12 for another 2 weeks with close outpatient followup. Local care to continue per Vascular Surgery. MMODL / IJN: [id number] /
[2018-01-18] MEDS: LISINOPRIL 2.5 MG TAB PO SCH (17:02)
[2018-01-18] MEDS: MONTELUKAST 10 MG TAB PO SCH (20:05)
[2018-01-18] MEDS: ATORVASTATIN 40 MG TAB PO SCH (20:05)
[2018-01-18] MEDS: MORPHINE SULFATE ER 15 MG TABLET PO SCH (20:06)
[2018-01-18] MEDS: LACTATED RINGERS 1,000 ML IV SCH (20:07)
[2018-01-18] MEDS: POLYETHYLENE GLYCOL 3350 17 GM POWD.PACK PO SCH (20:07)
[2018-01-18] MEDS: COLLAGENASE 250 UNIT/GM OINTMENT 30 GM TUBE TOPICAL SCH (20:08)
[2018-01-19] MEDS: HYDROcodone/APAP 10-325MG 1 EACH TAB PO PRN ×2 (04:41→14:01)
[2018-01-19 06:16] VITALS: BP 112/61; PULSE 98; TEMP 97.3
[2018-01-19] MEDS: SODIUM CHLORIDE 0.9% 1,000 ML IV SCH (06:17)
[2018-01-19 08:16] LABS: Basophils % (A) 0 %; Eosinophils # (A) 0.2 k/uL (0-0.7); Eosinophils % (A) 3 %; HCT 30.5 % (39.0-53.0); HGB 9.3 gm/dL (13.0-17.5); Hypochromasia Moderate; Lymphocytes # (A) 0.7 k/uL (1.0-4.8); Lymphocytes % (A) 9 %; MCH 29.8 pg (25.0-35.0); MCHC 30.5 g/dL (31.0-37.0); MCV 97.9 fL (80.0-100.0); Mean Platelet Volume 6.8; Monocytes # (A) 0.7 k/uL (0-1.0); Monocytes % (A) 9 %; Neutrophils % (A) 76 %; Platelet Count 383 k/uL (150-450); RBC 3.11 m/uL (4.30-5.90); RDW 13.6 % (11.5-15.5); WBC 7.9 k/uL (3.8-10.6)
[2018-01-19 08:20] LABS: ALT 30 U/L (21-72); AST 21 U/L (17-59); Albumin 3.8 g/dL (3.5-5.0); Alkaline Phosphatase 65 U/L (38-126); Anion Gap 11 mmol/L; Blood Urea Nitrogen 10 mg/dL (9-20); Calcium 9.6 mg/dL (8.4-10.2); Carbon Dioxide 27 mmol/L (22-30); Chloride 100 mmol/L (98-107); Glucose 80 mg/dL (74-99); Potassium 4.4 mmol/L (3.5-5.1); Sodium 138 mmol/L (137-145); Total Bilirubin 0.2 mg/dL (0.2-1.3); Total Protein 6.4 g/dL (6.3-8.2)
[2018-01-19] MEDS: ENOXAPARIN 40 MG/0.4 ML SYRINGE SQ SCH (08:35)
[2018-01-19] MEDS: CARVEDILOL 6.25 MG TAB PO SCH (08:35)
[2018-01-19] MEDS: FAMOTIDINE 20 MG TAB PO SCH (08:35)
[2018-01-19] MEDS: CEFEPIME 2 GM in SODIUM CHLORIDE 0.9% 50 ML IVPB SCH (08:35)
[2018-01-19] MEDS: FERROUS SULFATE 325 MG TAB PO SCH (08:35)
[2018-01-19] MEDS: DOCUSATE 100 MG CAP PO SCH (08:35)
[2018-01-19] MEDS: MORPHINE SULFATE ER 15 MG TABLET PO SCH (08:46)
--- NOTE | 2018-01-19 11:14 | P.PN ---
Subjective Progress Note Date: 01/19/18 Principal diagnosis: Osteomyelitis left third toe and right great toe and fifth toe, history of coronary artery disease with previous CABG in February 2016, peripheral vascular disease and a 4 cm abdominal aortic aneurysm, and iron deficiency anemia POD #3 amputation left third toe through distal metatarsal, amputation right great toe through proximal phalanx, amputation right fifth toe through metatarsals. The patient is sitting up in bed, he is in no acute distress. He reports his foot pain is much improved today, currently rates his pain 1 out of 10 on the pain scale. He remains nonweightbearing on his right foot and partial weightbearing to his left foot. Dressings clean and dry to his bilateral feet. Objective - Vital Signs Vital signs: Vital Signs Temp 97.3 F L 01/19/18 05:37 Pulse 98 01/19/18 05:37 Resp 18 01/19/18 05:37 BP 112/61 01/19/18 05:37 Pulse Ox 94 L 01/19/18 05:37 Intake & Output 01/18/18 01/19/18 01/19/18 18:59 06:59 18:59 Output Total 1500 800 Balance -1500 -800 Output: Urine 1500 800 Other: Voiding Method Urinal # Bowel Movements 2 - Constitutional General appearance: Present: cooperative, no acute distress, thin - Respiratory Details: Respirations lung sounds are essentially clear throughout, diminished bilateral bases. Respirations are symmetrical and nonlabored. Oxygen saturation are 94% on room air. - Cardiovascular Details: Regular rhythm and rate. S1 and S2 present, positive for pansystolic murmur 3/ 6. No edema present. - Gastrointestinal Gastrointestinal Comment(s): Abdomen is soft, nontender nondistended. Active bowel sounds all 4 abdominal quadrants. Tolerating oral intake. - Genitourinary Genitourinary Comment(s): Voiding clear yellow urine. - Integumentary Integumentary Comment(s): Skin is warm and dry. No clubbing or cyanosis present. Dressings clean and dry to his bilateral feet. Scant serosanguineous drainage. - Neurologic Neurologic: Present: CNII-XII intact - Musculoskeletal Musculoskeletal Comment(s): Continues to be nonweightbearing to his right foot and partial weightbearing to his left foot. Musculoskeletal: Present: generalized weakness, strength equal bilaterally - Psychiatric Psychiatric: Present: A&O x's 3, appropriate affect, intact judgment & insight - Allied health notes Allied health notes reviewed: nursing - Labs CBC & Chem 7: 01/19/18 07:44 01/19/18 07:44 Labs: Abnormal Lab Results - Last 24 Hours (Table) 01/19/18 01/19/18 Range/Units 07:44 07:44 RBC 3.11 L (4.30-5.90) m/uL Hgb 9.3 L (13.0-17.5) gm/dL Hct 30.5 L (39.0-53.0) % MCHC 30.5 L (31.0-37.0) g/dL Lymphocytes # 0.7 L (1.0-4.8) k/uL Creatinine 0.63 L (0.66-1.25) mg/dL Assessment and Plan (1) Acute hematogenous osteomyelitis of both feet Current Visit: Yes Status: Acute Code(s): M86.071 - ACUTE HEMATOGENOUS OSTEOMYELITIS, RIGHT ANKLE AND FOOT; M86.072 - ACUTE HEMATOGENOUS OSTEOMYELITIS , LEFT ANKLE AND FOOT SNOMED Code(s): 724055743 (2) Anemia Current Visit: No Status: Acute Code(s): D64.9 - ANEMIA, UNSPECIFIED SNOMED Code(s): 216520532 (3) COPD (chronic obstructive pulmonary disease) Current Visit: No Status: Acute Code(s): J44.9 - CHRONIC OBSTRUCTIVE PULMONARY DISEASE, UNSPECIFIED SNOMED Code(s): 85390937 Plan: 1. Medical management per Dr. Frederick's recommendations. 2. Keep dressings intact to his bilateral feet, wound care daily per physician' s orders. 3. Continue no weightbearing to his right foot and partial weightbearing to his left foot. 4. Increase activity as tolerated physical therapy and occupational therapy following. 5. Antibiotic management per Dr. Galo. 6. GI and DVT prophylaxis 7. More recommendations to follow based on the patient's clinical course. Anticipate discharge to [facility] when bed available. Time with Patient: Greater than 30
[2018-01-19] MEDS: MULTIVITAMINS, THERA 1 EACH TAB PO SCH (11:33)
--- NOTE | 2018-01-19 13:40 | PN ---
PROGRESS NOTE DATE OF SERVICE: 01/19/2018. REASON FOR FOLLOWUP: Right foot osteomyelitis. INTERVAL HISTORY: The patient is afebrile. Overall pain is currently controlled with pain medication. Currently waiting for placement. Denies having any chest pain, shortness of breath or cough. No abdominal pain or any diarrhea. EXAMINATION: Blood pressure is 112/61, pulse of 98, temperature 97.3. He is 94% on room air. General description is an elderly male lying in bed in no distress. RESPIRATORY SYSTEM: Unlabored breathing. Clear to auscultation anteriorly. HEART: S1, S2. Regular rate and rhythm. ABDOMEN: Soft, no tenderness. Bilateral foot wounds are currently dressed up. No obvious drainage on the dressing. DIAGNOSTIC IMPRESSION AND PLAN: Patient with right foot wound with underlying osteomyelitis status post amputation of the right 4th and 5th toe with amputation of the left 3rd toe. The patient is currently covered with Rocephin and that will be continued for another 2 weeks with close outpatient followup. Local wound care per Vascular Surgery. Continue supportive care. MMODL / IJN: [id number] /
--- NOTE | 2018-01-19 14:37 | P.DS ---
Providers Date of admission: 01/10/18 21:36 Expected date of discharge: 01/19/18 Attending physician: Brad Frederick Consults: 01/10/18 21:30 Consult Physician Stat Consulting Provider: Jose E Romero Consult Reason/Comments: Aterial Occlusion; Foot Wound Do you want consulting provider notified?: Yes 01/11/18 12:29 Consult Physician Routine Consulting Provider: Bonifacio Pena Consult Reason/Comments: wound care Do you want consulting provider notified?: Already Contacted Consult Physician Routine Consulting Provider: Salima Galo Consult Reason/Comments: bilateral feet wounds Do you want consulting provider notified?: Yes Primary care physician: Maggy Siegle [facility] Course: 1. Right lower extremity critical limb ischemia with multiple foot and toe wounds and evidence of osteomyelitis in the right foot. Wound cultures growing MSSA and Serratia Macesens, and Klebsiella. Currently on cefepime. Patient has PICC line in place. Patient underwent amputation of one toe on the left and 2 toes on the right foot. Continue with wound care management antibiotics per infectious disease and Dr. Pena. 2. Vascular ulcers of both feet. 3. Hyperkalemia: Resolved. Aldactone discontinued on admission 4. History of severe peripheral vascular disease. Patient's aspirin and Plavix currently on hold for procedure today 5. History of coronary disease with previous CABG in 2016 6. History of abdominal aortic aneurysm 4 cm in size. Followed by Dr. Pena. Has abdominal ultrasound every 6 months 7. Iron deficiency anemia: No active signs of bleeding. Iron supplement. He reports last colonoscopy over 5 years ago 8. Hyperlipidemia continue statin 9. Essential hypertension: Blood pressures are stable. Potassium level has improved we'll resume patient's lisinopril 2.5 mg at bedtime 10. Mild aortic stenosis noted on echo Patient Condition at Discharge: Fair Plan - Discharge Summary Discharge Rx Participant: Yes New Discharge Prescriptions: New Aspirin EC [Ecotrin Low Dose] 81 mg PO DAILY #30 tablet. HYDROcodone/APAP 10-325MG [[place] 10-325] 1 each PO Q6HR PRN #30 tab PRN Reason: Pain Morphine Sulfate ER [Ms Contin] 15 mg PO Q12HR #20 tablet Polyethylene Glycol 3350 [Miralax] 17 gm PO HS #30 powd.pack Continue Multivit-Min/FA/Lycopen/Lutein [Centrum Silver Tablet] 1 tab PO DAILY Atorvastatin [Lipitor] 40 mg PO HS #30 tab Clopidogrel [Plavix] 75 mg PO DAILY #30 tab Lisinopril [Zestril] 2.5 mg PO HS #30 tab Montelukast [Singulair] 10 mg PO HS #30 tab Carvedilol [Coreg] 6.25 mg PO DAILY Ferrous Sulfate [Feosol] 325 mg PO BID #60 tab Discontinued Aspirin EC [Ecotrin] 325 mg PO DAILY #30 tablet. Spironolactone [Aldactone] 25 mg PO DAILY Amoxicillin/Potassium Clav [Augmentin 875-125 Tablet] 1 tab PO Q12HR Discharge Medication List Multivit-Min/FA/Lycopen/Lutein [Centrum Silver Tablet] 1 tab PO DAILY 02/13/16 [ History] Atorvastatin [Lipitor] 40 mg PO HS #30 tab 02/22/16 [Rx] Clopidogrel [Plavix] 75 mg PO DAILY #30 tab 02/22/16 [Rx] Lisinopril [Zestril] 2.5 mg PO HS #30 tab 02/22/16 [Rx] Montelukast [Singulair] 10 mg PO HS #30 tab 02/22/16 [Rx] Carvedilol [Coreg] 6.25 mg PO DAILY 07/01/16 [History] Ferrous Sulfate [Feosol] 325 mg PO BID #60 tab 07/02/16 [Rx] Aspirin EC [Ecotrin Low Dose] 81 mg PO DAILY #30 tablet. 01/19/18 [Rx] HYDROcodone/APAP 10-325MG [[place] 10-325] 1 each PO Q6HR PRN #30 tab 01/19/18 [Rx ] Morphine Sulfate ER [Ms Contin] 15 mg PO Q12HR #20 tablet 01/19/18 [Rx] Polyethylene Glycol 3350 [Miralax] 17 gm PO HS #30 powd.pack 01/19/18 [Rx] Follow up Appointment(s)/Referral(s): Maggy Siegel DO [Primary Care Provider] - 1-2 days [facility] Visiting Nurse, [NON-STAFF] - Patient Instructions/Handouts: Peripheral Artery Disease (DC), Toe Amputation ( DC) Activity/Diet/Wound Care/Special Instructions: right upper arm PICC line heart healthy diet non right leg weight bearing, partial left leg weight bearing right heel dressing-opticel ag Sunday bilateral toe amputation dressings-nonstick, kerlix, juan wrap Daily Discharge Disposition: TRANSFER TO SNF/ECF
== END 2018-01-19 15:50 | DRG 256 ==
LOC: EC 17:13 → 3SUR 21:36 → 6SEL 01-11 12:18 → 4MS4W 01-12 13:51
PROVIDERS: ADMIT Internal Medicine; ATTEND Internal Medicine
PROC: 0Y6U0Z0 Detachment at Left 3rd Toe, Complete, Open Approach (ICD-10-PCS; 2018-01-11)
PROC: B41D1ZZ Fluoroscopy of Aorta and Bilateral Lower Extremity Arteries using Low Osmolar Contrast (ICD-10-PCS; 2018-01-11)
PROC: 0Y6P0Z1 Detachment at Right 1st Toe, High, Open Approach (ICD-10-PCS; principal; 2018-01-11 10:55)
PROC: 0Y6X0Z0 Detachment at Right 5th Toe, Complete, Open Approach (ICD-10-PCS; 2018-01-11 10:55)
PROC: 02HV33Z Insertion of Infusion Device into Superior Vena Cava, Percutaneous Approach (ICD-10-PCS; 2018-01-16)
DX: I70.203 Unspecified atherosclerosis of native arteries of extremities, bilateral legs (principal); M86.9 Osteomyelitis, unspecified; I99.8 Other disorder of circulatory system; I25.10 Atherosclerotic heart disease of native coronary artery without angina pectoris; D50.9 Iron deficiency anemia, unspecified; E78.5 Hyperlipidemia, unspecified; I11.0 Hypertensive heart disease with heart failure; I50.9 Heart failure, unspecified; E87.5 Hyperkalemia; L97.519 Non-pressure chronic ulcer of other part of right foot with unspecified severity; I35.0 Nonrheumatic aortic (valve) stenosis; B96.1 Klebsiella pneumoniae [K. pneumoniae] as the cause of diseases classified elsewhere; K59.00 Constipation, unspecified; F12.90 Cannabis use, unspecified, uncomplicated; J44.9 Chronic obstructive pulmonary disease, unspecified; I70.8 Atherosclerosis of other arteries; B95.61 Methicillin susceptible Staphylococcus aureus infection as the cause of diseases classified elsewhere; L97.529 Non-pressure chronic ulcer of other part of left foot with unspecified severity; Z79.899 Other long term (current) drug therapy; Z79.82 Long term (current) use of aspirin; Z86.79 Personal history of other diseases of the circulatory system; Z79.02 Long term (current) use of antithrombotics/antiplatelets; Z79.2 Long term (current) use of antibiotics; Z82.49 Family history of ischemic heart disease and other diseases of the circulatory system; Z87.891 Personal history of nicotine dependence; Z90.89 Acquired absence of other organs; Z95.1 Presence of aortocoronary bypass graft
CPT/HCPCS: 36246; 36415; 36569; 71046; 75625; 75716; 76937; 77001; 80048; 80053; 82728; 83540; 83550; 85025; 85610; 85652; 85730; 86140; 87070; 87075; 87077; 87186; 87205; 88305; 88311; 93005; 93306; 93880; 93923; 93971; 99214

== ENCOUNTER → 2019-04-09 | Outpatient (CLI) | payer MEDICARE ==
[2019-04-09 06:55] LABS: African American GFR (CKD) >90 (>60 ml/min/1.73 sqM); Blood Urea Nitrogen 14 mg/dL (9-20)
--- NOTE | 2019-04-09 09:02 | CT ---
EXAMINATION TYPE: CT angio abdomen pelvis DATE OF EXAM: 04/09/2019 COMPARISON: 07/18/2017 HISTORY: 68 year-old male abdominal Aortic aneurysm without rupture TECHNIQUE: Contiguous axial scanning of the abdomen and pelvis following administration of 100 ml Iso markus 370 IV contrast. Coronal/sagittal MIP reconstructions performed. 3-D reconstructions generated o n a dedicated independent workstation. CT DLP: 325.1 mGycm Automated exposure control for dose reduction was used. FINDINGS: Suspect a ARRIAZA clip. Heart normal size. Strandy atelectasis or scarring at the inferior lingula. No p leural effusion. Early arterial phase imaging of the liver, gallbladder, right adrenal gland, right kidney, spleen, an d pancreas show no gross abnormality. Redemonstrated diffuse low-density thickening of the left adrenal gland, probably underlying adrenal hyperplasia. A large cyst anteromedial to the left kidney measures 6.6 cm versus 6.0 cm on 07/18/2017. No dilated small bowel, free fluid, or free air. No mesenteric or retroperitoneal lymphadenopathy. So me prominent fluid-filled small bowel loops throughout the abdomen and pelvis. Mild overall stool bur den. Scattered colonic diverticulosis, greatest in the left side of the colon and even greater within the sigmoid colon. No pericolonic inflammatory change. Patulous right inguinal canal. Bladder partially distended. Circumferential wall thickening is noted. Prostate gland measures 5.3 cm wide. Pelvic phleboliths. No abnormal fluid collection in the pelvis or pelvic lymphadenopathy. Lipoma extending along the left iliopsoas spending up to 10.2 cm long and measuring 3.6 x 1.8 cm in. No definite suspicious internal complexity is seen. Consider 6-12 month follow-up exams to monitor gi natan size. BONES: Mild degenerative changes at the hips. Degenerative disc disease and facet arthropathy within the lum bar spine. VASCULATURE: Mild to moderate atherosclerotic narrowing at the origin of the SMA and moderate at the origin of the celiac axis. Moderate atherosclerotic narrowing at the bilateral renal artery origins. Vascular calcifications at the bilateral renal kaykay. Infrarenal abdominal aorta is ectatic at 2.7 cm, unchanged.. Spanning approximately 8 cm, there is AAA extending to the aortic bifurcation measuring 4.5 x 4.5 cm versus 4.3 x 4.1 cm on 07/18/2017. There is crescentic mural based thrombus and plaque narrowing the p atent lumen down to 2.0 cm. Moderate atherosclerotic changes throughout the abdominal aorta and iliac arteries. 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 The left is ectatic at 1.8 cm, also unc hanged. Segmental areas of moderate atherosclerotic narrowing are present within the iliac arteries. More focal severe stenosis proximal right SFA and multiple severe focal stenoses/subtotal occlusions at the proximal left SFA. IMPRESSION: 1. REDEMONSTRATED 8 CM LONG INFRARENAL AAA CURRENTLY MEASURING 4.5 X 4.5 CM VERSUS 4.3 X 4.1 CM ON . 2. 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 3. MODERATE ATHEROSCLEROTIC CHANGE THROUGHOUT THE ABDOMINAL AORTA AND ILIAC ARTERIES. THERE ARE MULTI PLE SEGMENTAL AREAS OF MODERATE ATHEROSCLEROTIC STENOSIS WITHIN THE ILIAC ARTERIES BUT MORE SEVERE FO AIDE STENOSIS PROXIMAL RIGHT SFA AND MULTIPLE SEVERE FOCAL STENOSES/SUBTOTAL OCCLUSIONS AT THE PROXIMA L LEFT SFA. 4. ELONGATED LIPOMATOUS LESION, LIKELY LIPOMA, MEASURING 10.2 X 3.6 X 1.8 CM ALONG THE LEFT ILIOPSOAS . THIS CAN BE MONITORED ON THE PATIENT'S CTA ABDOMEN/PELVIS ROUTINE FOLLOW-UP. 5. CIRCUMFERENTIAL BLADDER WALL THICKENING COULD REPRESENT CHRONIC BLADDER WALL HYPERTROPHY OR CYSTIT IS.
== END | disposition home or self-care (01) ==
LOC: RADCTMAIN 06:14
PROVIDERS: ATTEND Thoracic Surgery (Cardiothoracic Vascular Surgery)
DX: I70.0 Atherosclerosis of aorta (principal); N32.89 Other specified disorders of bladder; I71.4 Abdominal aortic aneurysm, without rupture
CPT/HCPCS: 82565; 84520; 36415; 74174; Q9967

== ENCOUNTER 2020-09-08 00:01 | Inpatient (IN) | payer MEDICARE ==
[2020-09-08] MEDS ORDERED: SODIUM CHLORIDE 0.9% 500 ML 500 ML IV STA (00:13)
[2020-09-08] MEDS ORDERED: ONDANSETRON 4 MG/2 ML VIAL IVP STA (00:13)
[2020-09-08] MEDS ORDERED: PANTOPRAZOLE 40 MG/10 ML VIAL IVP STA (00:13)
--- NOTE | 2020-09-08 00:16 | ED ---
GI Bleed HPI - General Chief complaint: GI Bleed Stated complaint: GI bleed Time Seen by Provider: 09/08/20 00:13 Source: patient, EMS, RN notes reviewed, old records reviewed Mode of arrival: EMS Limitations: no limitations - History of Present Illness Initial comments: This is a 70-year-old male DF for evaluation patient Dese for evaluation of severe weakness patient has a significant low blood pressure and patient believes he may be on blood thinners but unsure which. Patient feels very weak lethargic near syncopal. No prior history of significant GI bleed in the past MD complaint: blood on toilet paper, blood streaked stool, gross hematochezia -: hour(s) Radiation: none Severity scale (1-10): 9 Quality: painless Consistency: constant Improves with: none Worsens with: none Context: blood thinners, near syncope Associated Symptoms: nausea, shortness of breath, weakness Treatments Prior to Arrival: none - Related Data Home Medications Medication Instructions Recorded Confirmed Multivit-Min/FA/Lycopen/Lutein 1 tab PO DAILY 02/13/16 06/11/18 [Centrum Silver Tablet] carvediloL [Coreg] 6.25 mg PO DAILY 07/01/16 06/11/18 HYDROcodone/APAP 10-325MG [[place] 1 tab PO Q6HR PRN 05/21/18 06/11/18 10-325] Previous Rx's Medication Instructions Recorded Atorvastatin [Lipitor] 40 mg PO HS #30 tab 02/22/16 Clopidogrel [Plavix] 75 mg PO DAILY #30 tab 02/22/16 Montelukast [Singulair] 10 mg PO HS #30 tab 02/22/16 lisinopriL [Zestril] 2.5 mg PO HS #30 tab 02/22/16 Ferrous Sulfate [Feosol] 325 mg PO BID #60 tab 07/02/16 Aspirin EC [Ecotrin Low Dose] 81 mg PO DAILY #30 tablet.dr 01/19/18 polyethylene glycoL 3350 [Miralax] 17 gm PO HS #30 powd.pack 01/19/18 Allergies Allergy/AdvReac Type Severity Reaction Status Date / Time No Known Allergies Allergy Verified 06/11/18 10:47 Review of Systems ROS Statement: Those systems with pertinent positive or pertinent negative responses have been documented in the HPI. ROS Other: All systems not noted in ROS Statement are negative. Past Medical History Past Medical History: Coronary Artery Disease (CAD), Heart Failure, Hyperlipidemia, Hypertension, Vascular Disorder Additional Past Medical History / Comment(s): aortic aneusrym, herniated disc, peripheral vascular disease History of Any Multi-Drug Resistant Organisms: None Reported Past Surgical History: Appendectomy, Coronary Bypass/CABG Additional Past Surgical History / Comment(s): Right rotater cuff repair Past Anesthesia/Blood Transfusion Reactions: No Reported Reaction Past Psychological History: No Psychological Hx Reported Smoking Status: Current some day smoker Past Alcohol Use History: Daily, Occasional Past Drug Use History: Marijuana - Past Family History Father Family Medical History: Coronary Artery Disease (CAD) Additional Family Medical History / Comment(s): triple bypass Mother Family Medical History: Coronary Artery Disease (CAD), Dementia General Exam Limitations: no limitations General appearance: alert, anxious, lethargic, in distress Head exam: Present: atraumatic, normocephalic, normal inspection Eye exam: Present: normal appearance, PERRL, EOMI. Absent: scleral icterus, conjunctival injection, periorbital swelling ENT exam: Present: normal exam, mucous membranes moist Neck exam: Present: normal inspection. Absent: tenderness, meningismus, lymphadenopathy Respiratory exam: Present: normal lung sounds bilaterally. Absent: respiratory distress, wheezes, rales, rhonchi, stridor Cardiovascular Exam: Present: regular rate, normal rhythm, normal heart sounds. Absent: systolic murmur, diastolic murmur, rubs, gallop, clicks GI/Abdominal exam: Present: soft, normal bowel sounds. Absent: distended, tenderness, guarding, rebound, rigid Extremities exam: Present: normal inspection, full ROM, normal capillary refill. Absent: tenderness, pedal edema, joint swelling, calf tenderness Back exam: Present: normal inspection Neurological exam: Present: alert, oriented X3, CN II-XII intact Psychiatric exam: Present: normal affect, normal mood Skin exam: Present: warm, dry, intact, normal color. Absent: rash Course Vital Signs 09/08/20 09/08/20 09/08/20 00:08 01:00 01:56 Temperature 97.1 F L 97.5 F L Pulse Rate 80 84 84 Respiratory 16 16 18 Rate Blood Pressure 105/57 106/56 94/51 O2 Sat by Pulse 98 96 96 Oximetry 09/08/20 09/08/20 09/08/20 02:03 02:13 02:43 Temperature 97.6 F 97.6 F 97.6 F Pulse Rate 86 87 87 Respiratory 18 18 18 Rate Blood Pressure 95/47 94/52 87/48 O2 Sat by Pulse 95 95 95 Oximetry 09/08/20 09/08/20 03:00 03:30 Temperature Pulse Rate 86 91 Respiratory 18 18 Rate Blood Pressure 85/46 107/56 O2 Sat by Pulse 96 97 Oximetry - Reevaluation(s) Reevaluation #1: 09/08/20 00:45 medical record is reviewed Reevaluation #2: 09/08/20 00:46 patient will be transfused for low BP and Low hemoglobin Medical Decision Making - Medical Decision Making 70 male with significant bright red blood per rectum significant GI bleed. Patient will be admitted for GI to consult evaluate. Patient is given supportive care and transfusion here in the ER secondary to anemia with low blood pressure and active GI bleed - Lab Data Result diagrams: 09/08/20 00:28 09/08/20 00:28 Lab Results 09/08/20 09/08/20 09/08/20 Range/Units 00:28 00:28 00:28 WBC 4.3 (3.8-10.6) k/uL RBC 1.87 L (4.30-5.90) m/uL Hgb 6.7 L* (13.0-17.5) gm/dL Hct 20.1 L (39.0-53.0) % MCV 107.4 H (80.0-100.0) fL MCH 35.7 H (25.0-35.0) pg MCHC 33.2 (31.0-37.0) g/dL RDW 13.0 (11.5-15.5) % Plt Count 246 (150-450) k/uL MPV 6.7 Neutrophils % Not Reportable Neutrophils % (Manual) 68 % Lymphocytes % Not Reportable Lymphocytes % (Manual) 23 % Monocytes % Not Reportable Monocytes % (Manual) 5 % Eosinophils % Not Reportable Eosinophils % (Manual) 4 % Basophils % Not Reportable Neutrophils # Not Reportable Neutrophils # (Manual) 2.92 (1.3-7.7) k/uL Lymphocytes # Not Reportable Lymphocytes # (Manual) 0.99 L (1.0-4.8) k/uL Monocytes # Not Reportable Monocytes # (Manual) 0.22 (0-1.0) k/uL Eosinophils # Not Reportable Eosinophils # (Manual) 0.17 (0-0.7) k/uL Basophils # Not Reportable Nucleated RBCs 0 (0-0) /100 WBC Manual Slide Review Performed Hypochromasia Moderate Macrocytosis Moderate PT 12.3 H (9.0-12.0) sec INR 1.2 H (<1.2) APTT 22.4 (22.0-30.0) sec Sodium 132 L (137-145) mmol/L Potassium 3.5 (3.5-5.1) mmol/L Chloride 105 (98-107) mmol/L Carbon Dioxide 23 (22-30) mmol/L Anion Gap 4 mmol/L BUN 14 (9-20) mg/dL Creatinine 0.89 (0.66-1.25) mg/dL Est GFR (CKD-EPI)AfAm >90 (>60 ml/min/1.73 sqM) Est GFR (CKD-EPI)NonAf 87 (>60 ml/min/1.73 sqM) Glucose 86 (74-99) mg/dL Lactic Ac Sepsis Rflx Plasma Lactic Acid William (0.7-2.0) mmol/L Calcium 7.9 L (8.4-10.2) mg/dL Magnesium 1.8 (1.6-2.3) mg/dL Total Bilirubin <0.1 L (0.2-1.3) mg/dL AST 17 (17-59) U/L ALT 13 (4-49) U/L Alkaline Phosphatase 30 L (38-126) U/L Creatine Kinase 37 L (55-170) U/L Troponin I (0.000-0.034) ng/mL Total Protein 4.6 L (6.3-8.2) g/dL Albumin 2.7 L (3.5-5.0) g/dL Blood Type Blood Type Recheck Bld Type Recheck Status Antibody Screen Crossmatch Spec Expiration Date 09/08/20 09/08/20 09/08/20 Range/Units 00:28 00:28 00:28 WBC (3.8-10.6) k/uL RBC (4.30-5.90) m/uL Hgb (13.0-17.5) gm/dL Hct (39.0-53.0) % MCV (80.0-100.0) fL MCH (25.0-35.0) pg MCHC (31.0-37.0) g/dL RDW (11.5-15.5) % Plt Count (150-450) k/uL MPV Neutrophils % Neutrophils % (Manual) % Lymphocytes % Lymphocytes % (Manual) % Monocytes % Monocytes % (Manual) % Eosinophils % Eosinophils % (Manual) % Basophils % Neutrophils # Neutrophils # (Manual) (1.3-7.7) k/uL Lymphocytes # Lymphocytes # (Manual) (1.0-4.8) k/uL Monocytes # Monocytes # (Manual) (0-1.0) k/uL Eosinophils # Eosinophils # (Manual) (0-0.7) k/uL Basophils # Nucleated RBCs (0-0) /100 WBC Manual Slide Review Hypochromasia Macrocytosis PT (9.0-12.0) sec INR (<1.2) APTT (22.0-30.0) sec Sodium (137-145) mmol/L Potassium (3.5-5.1) mmol/L Chloride (98-107) mmol/L Carbon Dioxide (22-30) mmol/L Anion Gap mmol/L BUN (9-20) mg/dL Creatinine (0.66-1.25) mg/dL Est GFR (CKD-EPI)AfAm (>60 ml/min/1.73 sqM) Est GFR (CKD-EPI)NonAf (>60 ml/min/1.73 sqM) Glucose (74-99) mg/dL Lactic Ac Sepsis Rflx Plasma Lactic Acid William 3.3 H* (0.7-2.0) mmol/L Calcium (8.4-10.2) mg/dL Magnesium (1.6-2.3) mg/dL Total Bilirubin (0.2-1.3) mg/dL AST (17-59) U/L ALT (4-49) U/L Alkaline Phosphatase (38-126) U/L Creatine Kinase (55-170) U/L Troponin I <0.012 (0.000-0.034) ng/mL Total Protein (6.3-8.2) g/dL Albumin (3.5-5.0) g/dL Blood Type A Negative Blood Type Recheck A Neg Bld Type Recheck Status No Antibody Screen NEGATIVE Crossmatch See Detail Spec Expiration Date 09/11/2020232709/08/20 Range/Units 01:00 WBC (3.8-10.6) k/uL RBC (4.30-5.90) m/uL Hgb (13.0-17.5) gm/dL Hct (39.0-53.0) % MCV (80.0-100.0) fL MCH (25.0-35.0) pg MCHC (31.0-37.0) g/dL RDW (11.5-15.5) % Plt Count (150-450) k/uL MPV Neutrophils % Neutrophils % (Manual) % Lymphocytes % Lymphocytes % (Manual) % Monocytes % Monocytes % (Manual) % Eosinophils % Eosinophils % (Manual) % Basophils % Neutrophils # Neutrophils # (Manual) (1.3-7.7) k/uL Lymphocytes # Lymphocytes # (Manual) (1.0-4.8) k/uL Monocytes # Monocytes # (Manual) (0-1.0) k/uL Eosinophils # Eosinophils # (Manual) (0-0.7) k/uL Basophils # Nucleated RBCs (0-0) /100 WBC Manual Slide Review Hypochromasia Macrocytosis PT (9.0-12.0) sec INR (<1.2) APTT (22.0-30.0) sec Sodium (137-145) mmol/L Potassium (3.5-5.1) mmol/L Chloride (98-107) mmol/L Carbon Dioxide (22-30) mmol/L Anion Gap mmol/L BUN (9-20) mg/dL Creatinine (0.66-1.25) mg/dL Est GFR (CKD-EPI)AfAm (>60 ml/min/1.73 sqM) Est GFR (CKD-EPI)NonAf (>60 ml/min/1.73 sqM) Glucose (74-99) mg/dL Lactic Ac Sepsis Rflx Y Plasma Lactic Acid William (0.7-2.0) mmol/L Calcium (8.4-10.2) mg/dL Magnesium (1.6-2.3) mg/dL Total Bilirubin (0.2-1.3) mg/dL AST (17-59) U/L ALT (4-49) U/L Alkaline Phosphatase (38-126) U/L Creatine Kinase (55-170) U/L Troponin I (0.000-0.034) ng/mL Total Protein (6.3-8.2) g/dL Albumin (3.5-5.0) g/dL Blood Type Blood Type Recheck Bld Type Recheck Status Antibody Screen Crossmatch Spec Expiration Date - Radiology Data Radiology results: report reviewed (CT abd and pelvis is negative for acute dz), image reviewed Critical Care Time Critical Care Time: Yes Total Critical Care Time: 31 Disposition Clinical Impression: Anemia, Gastrointestinal hemorrhage Disposition: ADMITTED IP TO THIS [facility] Condition: Serious Is patient prescribed a controlled substance at d/c from ED?: No Referrals: Nonstaff,Physician [Primary Care Provider] - 1-2 days
[2020-09-08] MEDS ORDERED: Kcentra PER PHARMACY 1 EACH MISC MISCELLANE PRN (00:26)
[2020-09-08 00:36] LABS: HCT 20.1 % (39.0-53.0); Hypochromasia Moderate; MCH 35.7 pg (25.0-35.0); MCHC 33.2 g/dL (31.0-37.0); MCV 107.4 fL (80.0-100.0); Macrocytosis Moderate; Mean Platelet Volume 6.7; Platelet Count 246 k/uL (150-450); RBC 1.87 m/uL (4.30-5.90); WBC 4.3 k/uL (3.8-10.6)
[2020-09-08] MEDS: SODIUM CHLORIDE 0.9% 1,000 ML IV STA ×2 (00:39→09:59)
[2020-09-08 00:42] LABS: HGB 6.7 gm/dL (13.0-17.5)
[2020-09-08 00:48] LABS: ALT 13 U/L (4-49); AST 17 U/L (17-59); African American GFR (CKD) >90 (>60 ml/min/1.73 sqM); Albumin 2.7 g/dL (3.5-5.0); Alkaline Phosphatase 30 U/L (38-126); Anion Gap 4 mmol/L; Blood Urea Nitrogen 14 mg/dL (9-20); Calcium 7.9 mg/dL (8.4-10.2); Carbon Dioxide 23 mmol/L (22-30); Chloride 105 mmol/L (98-107); Creatine Kinase 37 U/L (55-170); Glucose 86 mg/dL (74-99); Magnesium 1.8 mg/dL (1.6-2.3); Non-African American GFR(CKD) 87 (>60 ml/min/1.73 sqM); Potassium 3.5 mmol/L (3.5-5.1); Sodium 132 mmol/L (137-145); Total Bilirubin <0.1 mg/dL (0.2-1.3); Total Protein 4.6 g/dL (6.3-8.2)
[2020-09-08 00:53] LABS: INR 1.2 (<1.2); Partial Thromboplastin Time 22.4 sec (22.0-30.0); Prothrombin Time 12.3 sec (9.0-12.0)
[2020-09-08] MEDS ORDERED: TRANEXAMIC ACID 1,000 MG in SODIUM CHLORIDE 0.9% 100 ML IVPB ONE (00:56)
[2020-09-08 01:10] LABS: Eosinophils # (M) 0.17 k/uL (0-0.7); Lymphocytes # (M) 0.99 k/uL (1.0-4.8); Monocytes # (M) 0.22 k/uL (0-1.0); Neutrophils # (M) 2.92 k/uL (1.3-7.7); Neutrophils % (M) 68 %; Nucleated Red Blood Cells 0 /100 WBC (0-0); Total Cells Counted 100
[2020-09-08] MEDS ORDERED: MORPHINE SULFATE 4 MG/ML SYRINGE IV PRN (02:07)
[2020-09-08] MEDS ORDERED: NALOXONE 0.4 MG/ML 1 ML VIAL IV PRN (02:07)
--- NOTE | 2020-09-08 03:48 | CT ---
EXAM: CT Angiography Abdomen and Pelvis With Intravenous Contrast CLINICAL HISTORY: ITS.REASON CT Reason: pain TECHNIQUE: Axial computed tomographic angiography images of the abdomen and pelvis with intravenous contrast. CTDI is 66.784 mGy and DLP is 945.4 mGy-cm. This CT exam was performed using one or more of the following dose reduction techniques: automated exposure control, adjustment of the mA and/or kV according to patient size, and/or use of iterative reconstruction technique. MIP reconstructed images were created and reviewed. COMPARISON: 04/09/2019. FINDINGS: VASCULATURE: Aorta: There is a 4.5 x 4.6 cm infrarenal abdominal aortic aneurysm. Laterally left of midline a short segment probable chronic dissection of the infrarenal abdominal aorta is noted best seen on axial image 39. Abdominal aortic aneurysm does not extend to the common iliac arteries. There is atherosclerotic disease of the origin of the major branches of the abdominal aorta. There is significant mural thrombus phenomenally anteriorly within the infrarenal abdominal aortic aneurysm measuring approximately 2.3 cm in thickness. Celiac trunk and mesenteric arteries: No acute findings. No occlusion or significant stenosis. Renal arteries: No acute findings. No occlusion or significant stenosis. Iliac arteries: Extensive atherosclerotic disease of the common iliac, external iliac, internal iliac arteries. Lung bases: Unremarkable. No mass. No consolidation. Pleural space: No pleural effusions. ABDOMEN: Liver: The liver and the spleen enhance uniformly. Gallbladder and bile ducts: The gallbladder is in a semi-contracted state and may contain tiny gallstones and sludge. No ductal dilation. Pancreas: The head, body, tail of the pancreas are unremarkable. No ductal dilation. Spleen: See above. Adrenals: 2.5 cm probable left adrenal adenoma. No follow-up is advised. 0.9 cm probable right adrenal adenoma. No follow-up is advised. Kidneys and ureters: Stranding about the perinephric spaces without hydronephrosis. An 8.7 x 6 x 6.1 cm exophytic cyst arising anteriorly from the mid pole region of the left kidney. Stomach and bowel: Mild to moderate quantity of ingested material in the stomach. No bowel obstruction. Moderate quantity of stool throughout the colon. Diverticulosis without diverticulitis per PELVIS: Appendix: No findings to suggest acute appendicitis. Bladder: The bladder is grossly unremarkable. Reproductive: Prostate gland is mildly enlarged measuring 5 x 6 cm is. ABDOMEN and PELVIS: Intraperitoneal space: Unremarkable. No significant fluid collection. No free air. Bones/joints: Sternotomy wires are noted in place, partially visualized. Moderate to severe degenerative disc disease of the visualized spine. Moderate to severe osteoarthritic changes about the sacroiliac joints. Sacrum and coccyx are unremarkable. No acute fracture. No dislocation. Soft tissues: Ischiorectal fat is clean. 2.4 cm right inguinal hernia containing mesenteric fat only. Lymph nodes: No pelvic or inguinal lymphadenopathy. Other findings: ASCVD. IMPRESSION: 1. The dominant finding of the current study is an infrarenal abdominal aortic aneurysm measuring 4.5 x 4.6 cm with significant mural thrombus in association with it. 2. Significant atherosclerotic disease of the major branches of the abdominal aorta. 3. Flow was demonstrated within the celiac, SMA, the renal arteries, and the PATY. 4. Extensive nonspecific stranding about the perinephric spaces bilaterally without hydronephrosis which requires clinical correlation.
[2020-09-08 05:00] LABS: Glucose,Whole Blood 134 mg/dL (75-99)
[2020-09-08] MEDS ORDERED: Potassium Replacement Protocol 1 EACH MISC MISCELLANE PRN (05:39)
[2020-09-08] MEDS: POTASSIUM CHLORIDE 10 MEQ in WATER FOR INJECTION 1 100ML.BAG IVPB SCH ×4 (06:31→09:57)
[2020-09-08] MEDS ORDERED: PANTOPRAZOLE 40 MG/10 ML VIAL IV SCH (09:00)
[2020-09-08 10:08] LABS: Anisocytosis Slight; Basophils % (A) 0 %; Eosinophils # (A) 0.1 k/uL (0-0.7); Eosinophils % (A) 1 %; HCT 30.3 % (39.0-53.0); Hypochromasia Moderate; Lymphocytes # (A) 0.4 k/uL (1.0-4.8); Lymphocytes % (A) 6 %; MCH 32.5 pg (25.0-35.0); MCHC 33.1 g/dL (31.0-37.0); Macrocytosis Slight; Mean Platelet Volume 6.9; Monocytes # (A) 0.3 k/uL (0-1.0); Monocytes % (A) 6 %; Neutrophils # (A) 4.7 k/uL (1.3-7.7); Neutrophils % (A) 83 %; Platelet Count 206 k/uL (150-450); Poikilocytosis Slight; RBC 3.08 m/uL (4.30-5.90); RDW 19.1 % (11.5-15.5); WBC 5.7 k/uL (3.8-10.6)
[2020-09-08 10:12] LABS: MCV 98.3 fL (80.0-100.0)
--- NOTE | 2020-09-08 10:16 | CONS ---
CONSULTATION PULMONARY/CRITICAL CARE CONSULTATION: DATE OF CONSULTATION: September 08, 2020 REASON FOR CONSULTATION: GI bleed and ICU management. This is a patient who was admitted on the . He apparently came into the emergency room complaining of lower GI bleed. He had bright red bleeding per rectum. He apparently felt like he had to have a bowel movement. When he did, there was bright red blood per rectum. His hemoglobin on admission was 6.7. He has not had a repeat hemoglobin because he is on his 3rd unit of packed red blood cells. Currently, he is on room air. He is getting saline at 100 mL an hour. His history includes such things as CAD, bypass grafting, aortic aneurysm, heart failure, hypertension, hyperlipidemia, chronic tobacco use, and occasional marijuana use. HOME MEDICATIONS: His home medications include multivitamins, Coreg, Calvin, Lipitor, Plavix, Singulair, Zestril, iron, aspirin and MiraLAX. ALLERGIES: Denied. MEDICAL HISTORY: Medical history includes CAD with previous bypass grafting, heart failure, hyperlipidemia, hypertension, aortic aneurysm, herniated disc, and peripheral vascular occlusive disease. SURGICAL HISTORY: Surgical history includes appendectomy, bypass grafting, and right rotator cuff repair. SOCIAL HISTORY: Social history is positive for ongoing tobacco use with nicotine addiction. He apparently does drink alcohol occasionally, particularly on the weekends. He does use marijuana from time to time. FAMILY HISTORY: Family history is positive for a father with bypass grafting for CAD and mother who also has coronary disease and dementia. REVIEW OF SYSTEMS: CONSTITUTIONAL: Weakness. NEUROLOGIC: Negative. HEENT: Negative. CARDIOVASCULAR: Negative. PULMONARY: Negative. GI: Bright red bleeding per rectum. : Negative. RHEUMATOLOGIC: Negative. IMMUNOLOGIC: Negative. ENDOCRINOLOGIC: Negative. DERMATOLOGIC: Negative. PHYSICAL EXAMINATION: VITAL SIGNS: Current vital signs include a temperature 97.4, heart rate 70, respiratory rate 13, blood pressure 102/62, mean 75, room air saturation 94%. GENERAL: Appears in no acute distress. HEENT: Examination is grossly unremarkable. NECK: Supple. Full range of motion. No adenopathy. Neck veins are flat. CARDIOVASCULAR: Examination reveals regular rhythm and rate. Heart rate is 70. S1, S2 normal. No S3, S4, or murmur. LUNGS: Reveal mostly clear breath sounds. A few scattered rhonchi. ABDOMEN: Soft. Bowel sounds are heard. EXTREMITIES: Are intact. No edema. SKIN: Without rash. NEUROLOGIC: Examination is nonfocal. LABS: Labs are reviewed. White count 4.3, hemoglobin 6.7, hematocrit 20.1, platelet count 246,000. PT 12.3, INR 1.2, PTT 22.4. Sodium 132, potassium 3.5, chloride 105, CO2 of 23. Anion gap is 4. BUN and creatinine were 14 and 0.89. Lactic acid 3.3, repeat 1.1. Calcium 7.9. Magnesium 1.8. Bilirubin less than 0.1. AST and ALT were normal. Alkaline phosphatase is 30. CK 37. Albumin 2.7. Microbiology is negative. CT of the abdomen and pelvis show an infrarenal abdominal aortic aneurysm measuring 4.5 x 4.6 cm. In addition, there is some significant atherosclerotic changes of the major branches of the abdominal aorta, and nonspecific stranding about the perinephric spaces. CURRENT MEDICATIONS: Current medications are reviewed. He is on morphine, Narcan, Protonix, potassium replacement protocol, and saline IV. ASSESSMENT: 1. Bright red bleeding per rectum, which may relate to diverticular disease and/or angiodysplasia. Other possibilities include cancer, colitis, or hemorrhoids. 2. History of coronary artery disease with previous bypass grafting. 3. Abdominal aortic aneurysm, infrarenal. 4. History of congestive heart failure. 5. History of essential hypertension. 6. Hyperlipidemia. 7. Ongoing tobacco use with nicotine addiction. 8. Occasional marijuana use. PLAN: The patient is currently receiving his third unit of blood. There has been no additional bleeding. He is hemodynamically stable. The patient has yet to be seen by Gastroenterology. Repeat hemoglobin will be pending after the last unit of blood. The patient is getting saline at 100 mL an hour. He is feeling much better. He is not receiving any supplemental oxygen. We will continue to follow. Prognosis is guarded. MMODL / IJN: [id number] /
[2020-09-08 10:19] LABS: ALT 16 U/L (4-49); AST 20 U/L (17-59); African American GFR (CKD) >90 (>60 ml/min/1.73 sqM); Albumin 2.9 g/dL (3.5-5.0); Alkaline Phosphatase 36 U/L (38-126); Anion Gap -1 mmol/L; Blood Urea Nitrogen 12 mg/dL (9-20); Calcium 7.8 mg/dL (8.4-10.2); Carbon Dioxide 23 mmol/L (22-30); Chloride 111 mmol/L (98-107); Glucose 93 mg/dL (74-99); Magnesium 1.8 mg/dL (1.6-2.3); Non-African American GFR(CKD) >90 (>60 ml/min/1.73 sqM); Potassium 4.9 mmol/L (3.5-5.1); Sodium 133 mmol/L (137-145); Total Bilirubin 0.8 mg/dL (0.2-1.3); Total Protein 4.9 g/dL (6.3-8.2)
[2020-09-08 14:38] VITALS: TEMP 98.6
[2020-09-08] MEDS ORDERED: SODIUM CHLORIDE 0.9% 1,000 ML IV SCH (15:00)
[2020-09-08] MEDS ORDERED: GABAPENTIN 400 MG CAP PO SCH (19:00)
[2020-09-08 19:11] VITALS: BP 149/81; PULSE 76; RESP 18
--- NOTE | 2020-09-08 22:26 | P.HPIM ---
History of Present Illness H&P Date: 09/08/20 Chief Complaint: Bright red blood per rectum. Patient is a 70-year-old male with a known history of coronary disease status post CABG, aortic aneurysm, herniated disc, hypertension, hyperlipidemia, peripheral vascular disease, currently everyday smoker and occasional presents to ER with complaints of severe weakness and lethargy. Patient had near syncopal episode. Patient complains of bright red blood per rectum. Hemoglobin found to be 6.7 on admission. Patient underwent 1 unit of PRBC transfusion. Laboratory data showed INR 1.2 Sodium 132, potassium 3.5, chloride 105, BUN 14 and creatinine 0.89 and lactic acid 3.3 Magnesium 1.8 AST 17 ALT 13 alk phos 30 and albumin 2.7 Hemoglobin level improved to 10.0 today. Gastroenterology was consulted CT angiogram of the abdomen pelvis showed dominant finding of the current study is an infrarenal abdominal aortic aneurysm measuring 4.5 to 4.6 cm with significant mural thrombus in the association with it. Significant atherosclerotic disease of the major branches of the abdominal aorta. Extensive nonspecific stranding about the perinephric spaces bilaterally without hydronephrosis which requires clinical correlation. Review of Systems Constitutional: Patient denies any fever or chills . No generalized weakness or weight loss. Abdomen: Patient denied nausea vomiting and diarrhea and abdominal pain.Bright red blood per rectum. Cardiovascular: Patient denies any chest pain or short of breath no palpitations. Respiratory: patient denied any cough or sputum production. No shortness of breath Neurologic: Patient denied any numbness or tingling headache. Musculoskeletal: Patient denies any complaints of joint swelling or deformity. Skin: Negative Psychiatric: Negative Endocrine: No heat or cold intolerance. No recent weight gain. Genitourinary: No dysuria or hematuria. All other 14 point ROS negative except the above Past Medical History Past Medical History: Coronary Artery Disease (CAD), Heart Failure, Hyperlipidemia, Hypertension, Vascular Disorder Additional Past Medical History / Comment(s): aortic aneusrym, herniated disc, peripheral vascular disease History of Any Multi-Drug Resistant Organisms: None Reported Past Surgical History: Appendectomy, Coronary Bypass/CABG Additional Past Surgical History / Comment(s): Right rotater cuff repair Past Anesthesia/Blood Transfusion Reactions: No Reported Reaction Past Psychological History: No Psychological Hx Reported Smoking Status: Current some day smoker, Light tobacco smoker Past Alcohol Use History: Occasional Past Drug Use History: Marijuana - Past Family History Father Family Medical History: Coronary Artery Disease (CAD) Additional Family Medical History / Comment(s): triple bypass Mother Family Medical History: Coronary Artery Disease (CAD), Dementia Medications and Allergies Home Medications Medication Instructions Recorded Confirmed Type Multivit-Min/FA/Lycopen/Lutein 1 tab PO DAILY 02/13/16 09/08/20 History [Centrum Silver Tablet] Atorvastatin [Lipitor] 40 mg PO HS #30 tab 02/22/16 09/08/20 Rx Clopidogrel [Plavix] 75 mg PO DAILY #30 tab 02/22/16 09/08/20 Rx Montelukast [Singulair] 10 mg PO HS #30 tab 02/22/16 09/08/20 Rx lisinopriL [Zestril] 2.5 mg PO HS #30 tab 02/22/16 09/08/20 Rx carvediloL [Coreg] 6.25 mg PO DAILY 07/01/16 09/08/20 History Aspirin EC [Ecotrin Low Dose] 81 mg PO DAILY #30 tablet.dr 01/19/18 09/08/20 Rx Gabapentin [Neurontin] 400 mg PO QID 09/08/20 09/08/20 History Loratadine [Claritin] 10 mg PO DAILY 09/08/20 09/08/20 History Allergies Allergy/AdvReac Type Severity Reaction Status Date / Time No Known Allergies Allergy Verified 09/08/20 08:21 Physical Exam Vitals: Vital Signs Temp Pulse Resp BP Pulse Ox 09/08/20 14:20 86 31 H 113/62 92 L 09/08/20 14:00 98.6 F 76 14 116/56 94 L 09/08/20 13:40 72 11 L 137/71 94 L 09/08/20 13:20 92 18 119/53 93 L 09/08/20 13:00 75 12 121/62 92 L 09/08/20 12:40 82 11 L 121/63 93 L 09/08/20 12:20 76 12 123/58 94 L 09/08/20 12:00 98.1 F 72 14 124/66 93 L 09/08/20 11:40 70 9 L 127/67 92 L 09/08/20 11:20 77 15 117/61 93 L 09/08/20 11:00 70 11 L 113/54 94 L 09/08/20 10:40 71 14 114/52 94 L 09/08/20 10:20 68 7 L 116/63 93 L 09/08/20 10:00 69 10 L 118/62 93 L 09/08/20 09:40 72 10 L 122/59 94 L 09/08/20 09:28 98.1 F 67 16 116/63 95 09/08/20 09:20 78 27 H 121/62 94 L 09/08/20 09:00 70 11 L 102/62 94 L 09/08/20 08:40 73 13 118/73 94 L 09/08/20 08:20 71 10 L 119/61 93 L 09/08/20 08:00 97.4 F L 81 15 125/53 94 L 09/08/20 07:40 70 12 116/50 94 L 09/08/20 07:39 98.7 F 67 16 126/55 94 L 09/08/20 07:20 71 11 L 103/43 92 L 09/08/20 07:09 98.9 F 69 18 105/55 96 09/08/20 07:00 74 15 100/54 93 L 09/08/20 06:59 98.2 F 75 15 103/43 93 L 09/08/20 06:53 98.4 F 77 16 104/49 95 09/08/20 06:40 76 16 100/41 92 L 09/08/20 06:20 76 13 85/48 95 09/08/20 06:00 93 16 93/57 96 09/08/20 05:40 84 20 94/52 94 L 09/08/20 05:26 98.9 F 95 20 93/57 94 L 09/08/20 05:24 98.7 F 91 15 94/52 94 L 09/08/20 05:20 82 18 115/53 95 09/08/20 05:00 89 17 96/53 94 L 09/08/20 04:56 98.5 F 86 15 115/53 96 09/08/20 04:46 98.6 F 85 16 96/53 95 09/08/20 04:40 98.6 F 87 15 106/71 95 09/08/20 04:21 97.6 F 85 18 90/46 95 09/08/20 04:00 97.6 F 88 18 90/44 96 09/08/20 03:30 91 18 107/56 97 09/08/20 03:00 86 18 85/46 96 09/08/20 02:43 97.6 F 87 18 87/48 95 09/08/20 02:13 97.6 F 87 18 94/52 95 09/08/20 02:03 97.6 F 86 18 95/47 95 09/08/20 01:56 97.5 F L 84 18 94/51 96 09/08/20 01:00 84 16 106/56 96 09/08/20 00:08 97.1 F L 80 16 105/57 98 Intake and Output 09/07/20 09/08/20 09/08/20 22:59 06:59 14:59 Intake Total 754 1107 Output Total 450 Balance 304 1107 Intake: IV 200 800 Sodium Chloride 0.9% 1, 200 800 000 ml @ 100 mls/hr IV . Q10H STA Rx#:[id number] Blood Product 554 287 Rc Pheresis 2 As3 Unit 274 [id number] Rc Pheresis As-3 Unit 280 [id number] Rc Pheresis As-3 Unit 0 287 [id number] Other 20 Rc Pheresis As-3 Unit 20 [id number] Output: Urine 450 Other: Weight 72.575 kg PHYSICAL EXAMINATION: Patient is lying in the bed comfortably, no acute distress, awake alert and oriented.. HEENT: Normocephalic. Neck is supple. Pupils reactive. Nostrils clear. Oral cavity is moist. Ears reveal no drainage. Neck reveals no JVD, carotid bruits, or thyromegaly. CHEST EXAMINATION: Trachea is central. Symmetrical expansion. Lung dawn clear to auscultation and percussion. CARDIAC: Normal S1, S2 with no gallops. No murmurs ABDOMEN: Soft. Bowel sounds normal. No organomegaly. No abdominal bruits. Extremities: reveal no edema. No clubbing or cyanosis Neurologically awake, alert, oriented x3 with well-coordinated movements. No focal deficits noted Skin: No rash or skin lesions. Psychiatric: Coperative. Nonsuicidal Musculoskeletal: No joint swelling or deformity. Normal range of motion. Results CBC & Chem 7: 09/08/20 09:53 09/08/20 09:53 Labs: Abnormal Lab Results - Last 24 Hours (Table) 09/08/20 09/08/20 09/08/20 Range/Units 00:28 00:28 00:28 RBC 1.87 L (4.30-5.90) m/uL Hgb 6.7 L* (13.0-17.5) gm/dL Hct 20.1 L (39.0-53.0) % MCV 107.4 H (80.0-100.0) fL MCH 35.7 H (25.0-35.0) pg RDW (11.5-15.5) % Lymphocytes # (1.0-4.8) k/uL Lymphocytes # (Manual) 0.99 L (1.0-4.8) k/uL PT 12.3 H (9.0-12.0) sec INR 1.2 H (<1.2) Sodium 132 L (137-145) mmol/L Chloride (98-107) mmol/L POC Glucose (mg/dL) (75-99) mg/dL Plasma Lactic Acid William (0.7-2.0) mmol/L Calcium 7.9 L (8.4-10.2) mg/dL Total Bilirubin <0.1 L (0.2-1.3) mg/dL Alkaline Phosphatase 30 L (38-126) U/L Creatine Kinase 37 L (55-170) U/L Total Protein 4.6 L (6.3-8.2) g/dL Albumin 2.7 L (3.5-5.0) g/dL Crossmatch 09/08/20 09/08/20 09/08/20 Range/Units 00:28 00:28 04:58 RBC (4.30-5.90) m/uL Hgb (13.0-17.5) gm/dL Hct (39.0-53.0) % MCV (80.0-100.0) fL MCH (25.0-35.0) pg RDW (11.5-15.5) % Lymphocytes # (1.0-4.8) k/uL Lymphocytes # (Manual) (1.0-4.8) k/uL PT (9.0-12.0) sec INR (<1.2) Sodium (137-145) mmol/L Chloride (98-107) mmol/L POC Glucose (mg/dL) 134 H (75-99) mg/dL Plasma Lactic Acid William 3.3 H* (0.7-2.0) mmol/L Calcium (8.4-10.2) mg/dL Total Bilirubin (0.2-1.3) mg/dL Alkaline Phosphatase (38-126) U/L Creatine Kinase (55-170) U/L Total Protein (6.3-8.2) g/dL Albumin (3.5-5.0) g/dL Crossmatch See Detail 09/08/20 09/08/20 Range/Units 09:53 09:53 RBC 3.08 L (4.30-5.90) m/uL Hgb 10.0 L D (13.0-17.5) gm/dL Hct 30.3 L (39.0-53.0) % MCV (80.0-100.0) fL MCH (25.0-35.0) pg RDW 19.1 H (11.5-15.5) % Lymphocytes # 0.4 L (1.0-4.8) k/uL Lymphocytes # (Manual) (1.0-4.8) k/uL PT (9.0-12.0) sec INR (<1.2) Sodium 133 L (137-145) mmol/L Chloride 111 H (98-107) mmol/L POC Glucose (mg/dL) (75-99) mg/dL Plasma Lactic Acid William (0.7-2.0) mmol/L Calcium 7.8 L (8.4-10.2) mg/dL Total Bilirubin (0.2-1.3) mg/dL Alkaline Phosphatase 36 L (38-126) U/L Creatine Kinase (55-170) U/L Total Protein 4.9 L (6.3-8.2) g/dL Albumin 2.9 L (3.5-5.0) g/dL Crossmatch Thrombosis Risk Factor Assmnt - DVT/VTE Prophylaxis DVT/VTE Prophylaxis: Pharmacologic Prophylaxis ordered - Choose All That Apply Any of the Below Risk Factors Present?: No Other Risk Factors: Yes Each Risk Factor Represents 2 Points: Age 61-74 years Other congenital or acquired thrombophilia - If yes, enter type in comment: No Thrombosis Risk Factor Assessment Total Risk Factor Score: 2 Thrombosis Risk Factor Assessment Level: Low Risk Assessment and Plan Assessment: Acute GI bleed with bright red blood per rectum. Possible diverticular bleed versus angiodysplasia. Peripheral vascular disease Abdominal aortic region infrarenal Coronary disease with history of CABG Chronic CHF ejection fraction unknown Hypertension Hyperlipidemia Current everyday smoker Occasional marijuana use DVT prophylaxis with SCDs Plan: Patient is status post transfusion with 3 units of PRBC. Denied any active bleeding. Gastroenterology was consulted. Monitor H&H and transfuse if hemoglobin is less than 7. Continue with IV hydration and PPI. Continue to follow closely. Patient is being monitored in the MICU. Further recommendations based on the clinical course. Time with Patient: Greater than 30
--- NOTE | 2020-09-15 13:06 | CDI ---
Documentation Clarification Form Date: 09/15/2020 12:50:00 PM From: Ashlie Vang Phone: If you have a question about this query, please contact [employer] at [phone] between 8am and 5pm. Admit Date: 09/08/2020 02:07:00 AM Patient Name: Temo Garcia Visit Number: [id number] Discharge Date: 09/08/2020 09:15:00 PM ATTENTION: The Clinical Documentation Specialists (CDI) and [facility] Coding Staff appreciate your assistance in clarifying documentation. Please respond to the clarification below the line at the bottom and electronically sign. The CDI & [facility] Coding staff will review the response and follow-up if needed. Please note: Queries are made part of the Legal Health Record. If you have any questions, please contact the author of this message via ITS. Dr. Valente Hilario Per ER notes Patient admit for significant bright red blood per rectum, significant GI bleed, in ER secondary to anemia and low blood pressure. Patient transfused 3 units RBC's. Patient's hemoglobin on admit 6.7. Please clarify type of anemia being treated. History/Risk Factors: rectal bleeding Hemoglobin: 6.7 Hematocrit: 20.1 Treatment: Transfusion 3 units In order to capture the severity of condition, please clarify the type of anemia and etiology if known:. Acute blood loss anemia Acute on chronic blood loss anemia Chronic blood loss anemia Iron deficiency anemia Other: Unable to determine: Acute blood loss anemia MTDD
== END 2020-09-08 21:15 | disposition left against medical advice (07) | DRG 378 ==
LOC: EC 00:01 → 2SICU 02:07
PROVIDERS: ADMIT Hospitalist; ATTEND Hospitalist
PROC: 30233N1 Transfusion of Nonautologous Red Blood Cells into Peripheral Vein, Percutaneous Approach (ICD-10-PCS; principal; 2020-09-08)
DX: K62.5 Hemorrhage of anus and rectum (principal); D62 Acute posthemorrhagic anemia; E78.5 Hyperlipidemia, unspecified; F17.210 Nicotine dependence, cigarettes, uncomplicated; I11.0 Hypertensive heart disease with heart failure; I25.10 Atherosclerotic heart disease of native coronary artery without angina pectoris; I50.9 Heart failure, unspecified; I51.3 Intracardiac thrombosis, not elsewhere classified; I71.4 Abdominal aortic aneurysm, without rupture; I73.9 Peripheral vascular disease, unspecified; I70.0 Atherosclerosis of aorta; Z79.02 Long term (current) use of antithrombotics/antiplatelets; Z79.82 Long term (current) use of aspirin; Z79.899 Other long term (current) drug therapy; Z82.49 Family history of ischemic heart disease and other diseases of the circulatory system; Z90.49 Acquired absence of other specified parts of digestive tract; Z95.1 Presence of aortocoronary bypass graft; R03.1 Nonspecific low blood-pressure reading
CPT/HCPCS: 36415; 36430; 74174; 80053; 82550; 83605; 83735; 84484; 85025; 85610; 85730; 86850; 86900; 86901; 86920; 96374; 96375; 99291

== ENCOUNTER 2022-03-12 18:03 | Emergency (ER) | payer MEDICARE ==
[2022-03-12 18:10] VITALS: BP 130/67; PULSE 80; RESP 18; TEMP 98.2
--- NOTE | 2022-03-12 18:56 | CT ---
EXAMINATION TYPE: CT brain amberly douglas con DATE OF EXAM: 03/12/2022 COMPARISON: None HISTORY: Fall. Pain CT DLP: 1127.1 mGycm Automated exposure control for dose reduction was used. Images obtained of the brain and cervical spine with no contrast. There is a 3 cm x 2 cm wedge-shaped area of hypodensity in the right posterior parietal lobe consiste nt with old infarct. No mass effect nor midline shift. No sign of intracranial hemorrhage. There is l eft frontal mild scalp hematoma. Calvarium is intact. There is normal aeration of the mastoid sinuses . There is straightening of the cervical spine. There is slight kyphotic deformity. There is degenerati ve disc space narrowing in the mid and lower cervical spine with spur formation. No compression fract ure. Facet joints are intact. Prevertebral soft tissues are intact. IMPRESSION: Mild cervical kyphotic deformity and multilevel spondylotic changes. No fracture seen. Old right posterior parietal infarct. No acute intracranial abnormality. Left frontal scalp hematoma.
--- NOTE | 2022-03-12 19:16 | ED ---
Fall HPI - General Chief Complaint: Fall Stated Complaint: fall Time Seen by Provider: 03/12/22 18:04 Source: patient Mode of arrival: EMS - History of Present Illness Initial Comments: Patient is a 71-year-old male who presents to the emergency department for evaluation of fall. Patient states he tripped when trying to get into the car and hit his face onto the cement. Patient states he is on a blood thinner however does not know which one. Patient denies other injury. He denies any pain including headache. Denies dizziness, lightheadedness, and visual changes/ Patient did admit to drinking 3 liquor cocktail beverages before arrival. - Related Data Home Medications Medication Instructions Recorded Confirmed Multivit-Min/FA/Lycopen/Lutein 1 tab PO DAILY 02/13/16 09/08/20 [Centrum Silver Tablet] carvediloL [Coreg] 6.25 mg PO DAILY 07/01/16 09/08/20 Gabapentin [Neurontin] 400 mg PO QID 09/08/20 09/08/20 Loratadine [Claritin] 10 mg PO DAILY 09/08/20 09/08/20 Previous Rx's Medication Instructions Recorded Atorvastatin [Lipitor] 40 mg PO HS #30 tab 02/22/16 Clopidogrel [Plavix] 75 mg PO DAILY #30 tab 02/22/16 Montelukast [Singulair] 10 mg PO HS #30 tab 02/22/16 lisinopriL [Zestril] 2.5 mg PO HS #30 tab 02/22/16 Aspirin EC [Ecotrin Low Dose] 81 mg PO DAILY #30 tablet. 01/19/18 Allergies Allergy/AdvReac Type Severity Reaction Status Date / Time No Known Allergies Allergy Verified 03/12/22 18:04 Review of Systems ROS Statement: Those systems with pertinent positive or pertinent negative responses have been documented in the HPI. ROS Other: All systems not noted in ROS Statement are negative. Past Medical History Past Medical History: Coronary Artery Disease (CAD), Heart Failure, Hyperlipidemia, Hypertension, Vascular Disorder Additional Past Medical History / Comment(s): aortic aneusrym, herniated disc, peripheral vascular disease History of Any Multi-Drug Resistant Organisms: None Reported Past Surgical History: Appendectomy, Coronary Bypass/CABG Additional Past Surgical History / Comment(s): Right rotater cuff repair Past Anesthesia/Blood Transfusion Reactions: No Reported Reaction Past Psychological History: No Psychological Hx Reported Smoking Status: Current some day smoker, Light tobacco smoker Past Alcohol Use History: Daily, Occasional Past Drug Use History: Marijuana - Past Family History Father Family Medical History: Coronary Artery Disease (CAD) Additional Family Medical History / Comment(s): triple bypass Mother Family Medical History: Coronary Artery Disease (CAD), Dementia General Exam Limitations: no limitations General appearance: alert, in no apparent distress Head exam: Present: normocephalic. Absent: atraumatic, normal inspection (left frontal hematoma ) Eye exam: Present: PERRL, EOMI. Absent: normal appearance (grade 1 hyphema of right eye ), periorbital swelling, periorbital tenderness ENT exam: Present: other (small bleeding abrasion over nose, resolved epistaxis of left nare ) Neck exam: Present: normal inspection, full ROM. Absent: tenderness Respiratory exam: Present: normal lung sounds bilaterally. Absent: respiratory distress, wheezes, rales, rhonchi, stridor Cardiovascular Exam: Present: regular rate, normal rhythm, normal heart sounds. Absent: systolic murmur, diastolic murmur, rubs, gallop, clicks GI/Abdominal exam: Present: soft, normal bowel sounds. Absent: distended, t enderness, guarding, rebound, rigid Extremities exam: Present: normal inspection, full ROM Neurological exam: Present: alert, oriented X3, CN II-XII intact Psychiatric exam: Present: normal affect, normal mood Skin exam: Present: warm, dry, intact, normal color. Absent: rash Course Vital Signs 03/12/22 18:04 Temperature 98.2 F Pulse Rate 80 Respiratory 18 Rate Blood Pressure 130/67 O2 Sat by Pulse 94 L Oximetry Medical Decision Making - Medical Decision Making This is a 71-year-old male who presents for evaluation of fall. Thorough history and examination were performed. Patient presents grade 1 hyphema of the right eye. PERRL. Patient denies eye pain and visual changes. EOMI. No periorbital swelling or ecchymosis. There is a bleeding abrasion over the nose as well as resolved epistaxis of the left nare. There is no obvious deformity. Patient also has a hematoma approximately 5 cm in size in the left frontal region. Patient's bed was elevated to upright position. Intraocular right eye pressure is within normal limits. Despite patient's physical exam he states he does not have any pain however patient is under the influence of alcohol. He is alert and oriented. Based on documentation it appears the patient is on Plavix. I will obtain CT of the brain/c spine and facial bones. Patient continuously asks to leave while waiting for results. I did talk with patient who agreed to stay until CT results came back however patient left against medical advice before results could be discussed. CT of the brain and C- spine is negative for acute process. CT of the facial bones shows no evidence of facial bone fracture with left supraorbital scalp hematoma. Since patient left AMA discharge instructions cannot be provided. Dr. Lang is my attending. Disposition Clinical Impression: Fall, Hyphema of right eye, Epistaxis due to trauma, Alcohol use Disposition: Left Against Medical Advice Condition: Good Instructions (If sedation given, give patient instructions): Nosebleed (ED), Hyphema (ED), Fall Prevention for Older Adults (ED), Hematoma (ED) Referrals: Maggy Siegel DO [Primary Care Provider] - 1-2 days Time of Disposition: 21:25
--- NOTE | 2022-03-12 19:26 | CT ---
EXAMINATION TYPE: CT facial bones wo con DATE OF EXAM: 03/12/2022 COMPARISON: None HISTORY: Fall. CT DLP: 1127.1 mGycm Automated exposure control for dose reduction was used. Images obtained from the mandible to the top of the frontal sinuses with no contrast. The mandibular ring is intact. The temporomandibular joints are intact. Zygomatic arches appear rodriguez l. Nasal bone is intact. Maxilla is intact. No evidence of orbital blowout fracture. No evidence of r etro-orbital mass. There is left frontal scalp soft tissue swelling above the left orbit. IMPRESSION: No evidence of facial bone fracture. Left supraorbital scalp hematoma. This measures up to 8 mm in th ickness.
[2022-03-12] MEDS ORDERED: FLUORESCEIN STRIPS 1 MG STRIP RIGHT EYE ONE (19:30)
[2022-03-12] MEDS ORDERED: PROPARACAINE 0.5% OPHTH DROPS 15 ML BTL RIGHT EYE STA (19:30)
== END 2022-03-12 19:40 | disposition left against medical advice (07) ==
LOC: EC 18:03
DX: S05.12XA Contusion of eyeball and orbital tissues, left eye, initial encounter (principal); R04.0 Epistaxis; F17.200 Nicotine dependence, unspecified, uncomplicated; I11.0 Hypertensive heart disease with heart failure; I50.9 Heart failure, unspecified; Z72.89 Other problems related to lifestyle; Z79.899 Other long term (current) drug therapy; Z53.29 Procedure and treatment not carried out because of patient's decision for other reasons; W01.0XXA Fall on same level from slipping, tripping and stumbling without subsequent striking against object, initial encounter
CPT/HCPCS: 70450; 70486; 72125; 99284

== ENCOUNTER 2023-03-03 19:10 | Emergency (ER) | payer MEDICARE ==
[2023-03-03] MEDS ORDERED: PANTOPRAZOLE 40 MG/10 ML VIAL IVP STA (19:40)
[2023-03-03] MEDS ORDERED: SODIUM CHLORIDE 0.9% 500 ML 500 ML IV STA (19:40)
--- NOTE | 2023-03-03 19:41 | ED ---
General Adult HPI - General Chief complaint: GI Bleed Stated complaint: weakness Time Seen by Provider: 03/03/23 19:22 Source: patient Mode of arrival: EMS Limitations: no limitations - History of Present Illness Initial comments: Patient presents to the ED by ambulance for evaluation. Patient reports that he is a daily whiskey drinker, but he states that he has not drank for the past 2 days. Patient reports having melanotic stools since yesterday. Patient states that he feels somewhat nauseated, generally weak and lightheaded. Patient denies taking any anticoagulant medications besides aspirin. Patient denies trauma or injury, any pain, fever or chills, headache, focal numbness/weakness/neuro deficit, chest pain or pressure, dyspnea, cough or cold symptoms, palpitations, syncope, abdominal pain, vomiting or diarrhea, constipation, bright red blood per rectum, rectal pain, dysuria/hematuria/urinary frequency/urinary symptoms, or any other symptoms or complaints. - Related Data Home Medications Medication Instructions Recorded Confirmed Multivit-Min/FA/Lycopen/Lutein 1 tab PO DAILY 02/13/16 09/08/20 [Centrum Silver Tablet] carvediloL [Coreg] 6.25 mg PO DAILY 07/01/16 09/08/20 Gabapentin [Neurontin] 400 mg PO QID 09/08/20 09/08/20 Loratadine [Claritin] 10 mg PO DAILY 09/08/20 09/08/20 Previous Rx's Medication Instructions Recorded Atorvastatin [Lipitor] 40 mg PO HS #30 tab 02/22/16 Clopidogrel [Plavix] 75 mg PO DAILY #30 tab 02/22/16 Montelukast [Singulair] 10 mg PO HS #30 tab 02/22/16 lisinopriL [Zestril] 2.5 mg PO HS #30 tab 02/22/16 Aspirin EC [Ecotrin Low Dose] 81 mg PO DAILY #30 tablet. 01/19/18 Allergies Allergy/AdvReac Type Severity Reaction Status Date / Time No Known Allergies Allergy Verified 03/12/22 18:04 Review of Systems ROS Statement: Those systems with pertinent positive or pertinent negative responses have been documented in the HPI. ROS Other: All systems not noted in ROS Statement are negative. Past Medical History Past Medical History: Coronary Artery Disease (CAD), Heart Failure, Hyperlipidemia, Hypertension, Vascular Disorder Additional Past Medical History / Comment(s): aortic aneusrym, herniated disc, peripheral vascular disease History of Any Multi-Drug Resistant Organisms: None Reported Past Surgical History: Appendectomy, Coronary Bypass/CABG Additional Past Surgical History / Comment(s): Right rotater cuff repair Past Anesthesia/Blood Transfusion Reactions: No Reported Reaction Past Psychological History: No Psychological Hx Reported Smoking Status: Current some day smoker, Light tobacco smoker Past Alcohol Use History: Daily, Occasional Past Drug Use History: Marijuana - Past Family History Father Family Medical History: Coronary Artery Disease (CAD) Additional Family Medical History / Comment(s): triple bypass Mother Family Medical History: Coronary Artery Disease (CAD), Dementia General Exam Limitations: no limitations General appearance: alert Head exam: Present: normocephalic Eye exam: Present: PERRL ENT exam: Present: mucous membranes dry Neck exam: Present: other (Trachea is in midline) Respiratory exam: Present: normal lung sounds bilaterally. Absent: respiratory distress, wheezes, rales, rhonchi, stridor Cardiovascular Exam: Present: regular rate, normal rhythm, normal heart sounds, other (Normal radial pulses bilaterally) GI/Abdominal exam: Present: soft. Absent: distended, tenderness, guarding Rectal exam: Present: normal rectal tone, black stool, other (Stool was sent for Hemoccult testing). Absent: tenderness Extremities exam: Absent: pedal edema Neurological exam: Present: alert, oriented X3 Psychiatric exam: Present: normal affect, normal mood Skin exam: Present: warm, dry, intact, pallor Course Vital Signs 03/03/23 03/03/23 03/03/23 19:15 19:37 20:51 Temperature 97.8 F 98.2 F 96.7 F L Pulse Rate 96 109 H Pulse Rate [ Trucker ] Respiratory 20 22 16 Rate Blood Pressure 111/49 83/49 O2 Sat by Pulse 97 98 96 Oximetry Fraction of Inspired Oxygen (FIO2) 03/03/23 03/03/23 03/03/23 20:58 21:00 21:31 Temperature Pulse Rate 109 H Pulse Rate [ 109 H Trucker ] Respiratory 16 Rate Blood Pressure 80/52 O2 Sat by Pulse Oximetry Fraction of 100 Inspired Oxygen (FIO2) - Reevaluation(s) Reevaluation #1: 03/03/23 20:35 Patient's daughter is 2 are now in the ED at bedside with the patient. Patient and daughters are aware the patient's test results and critical condition. I have explained to the patient's daughters that we are currently in the process of attempting to transfer the patient to a hospital with GI coverage. They all agree with this plan. 03/03/23 20:38 Case, H&P, test results thus far and ED management thus far were discussed with Dr. Bravo (ED physician at [facility]). He accepts ambulance transfer to the [facility] emergency department for GI evaluation/further management. He has no further recommendations at this time. 03/03/23 20:55 Awaiting packed RBCs to be sent from blood bank at this time. As soon as blood products have been sent to the ED, will begin transfusion, then have EMS transfer the patient (lights and sirens) to the [facility] ED. EMS has been notified. 03/03/23 21:02 Blood transfusion has begun in the ED and EMS is on their way to the ED to transfer the patient to [facility] at this time. 03/03/23 21:45 Just as EMS was preparing the patient for transport, the patient went into V- fib cardiac arrest. CPR was begun. Patient was defibrillated once at 120 J without response. Chest compressions were continued and epinephrine 1 mg IV was administered. Patient then cardioverted into a sinus rhythm and regained a pulse. Patient was then intubated with a 7.5 ET tube using video laryngoscopy. Will start the patient on a Levophed drip for ambulance transfer and continue RBC transfusion. Patient's daughters/family and [facility] ED were updated. I still feel that definitive management of the patient's upper GI bleed is most important at this time, and despite the patient's unstable condition, I feel that ambulance transfer to [facility] is still the best plan of action. EKG Findings - EKG Comments: EKG Findings:: ED physician interpretation (interpreted by me): Sinus tachycardia, no ectopy, ventricular rate of 100 bpm, nonspecific intraventricu lar conduction delay, normal ME interval, QRS duration of 136 ms, normal QT interval, inferolateral ST depressions, normal axis Procedures - Intubation Sedative: Etomidate Mg Given: 20 Paralytic: Succinylcholine Mg Given: 100 Laryngoscope: other (Video laryngoscope) ET Tube Size: 7.5 ET Tube Uncuffed: No Tube Secured Depth (cm): 23 Tube Secured Location: lips Tube Placement Confirmation: visualized tube passing through cords, equal breath sounds bilaterally, no breath sounds over epigastrium, confirmation by capnometry Medical Decision Making - Medical Decision Making Was pt. sent in by a medical professional or institution (, PA, [employer], urgent care, hospital, or retirement...) When possible be specific @ -No Did you speak to anyone other than the patient for history (EMS, parent, family, police, friend...)? What history was obtained from this source @ -No Did you review nursing and triage notes (agree or disagree)? Why? @ -I reviewed and agree with nursing and triage notes Were old charts reviewed (outside hosp., previous admission, EMS record, old EKG, old radiological studies, urgent care reports/EKG's, retirement records)? Report findings @ -No old charts were reviewed Differential Diagnosis (chest pain, altered mental status, abdominal pain women, abdominal pain men, vaginal bleeding, weakness, fever, dyspnea, syncope, headache, dizziness, GI bleed, back pain, seizure, CVA, palpatations, mental health, musculoskeletal)? @ - Differential GI Bleed: Esophageal varices, Lali-Gonzalez, gastritis, peptic ulcer disease, enteritis, c olitis, malignancy, Meckels diverticulum, anemia, coagulopathy, cirrhosis, liver disease, alcoholism, electrolyte abnormality, dehydration, hypotension, renal insufficiency, this is not meant to be an all-inclusive list. EKG interpreted by me (3pts min.). @ -As above X-rays interpreted by me (1pt min.). @ -As above CT interpreted by me (1pt min.). @ -None done U/S interpreted by me (1pt. min.). @ -None done What testing was considered but not performed or refused? (CT, X-rays, U/S, labs)? Why? @ -None What meds were considered but not given or refused? Why? @ -Given the patient's elevated troponin, aspirin/anticoagulation was considered, but given the patient's active GI bleed and severe anemia, no aspirin/anticoagulation was given. Did you discuss the management of the patient with other professionals (professionals i.e. , PA, [employer], lab, RT, psych nurse, social services coordinator, naval aircre[employer] tactical helicopter, teacher, admitting officer, caseworker)? Give summary @ -No Was smoking cessation discussed for >3mins.? @ -No Was critical care preformed (if so, how long)? @ -Yes, 90 minutes. Were there social determinants of health that impacted care today? How? (Homelessness, low income, unemployed, alcoholism, drug addiction, transportation, low edu. Level, literacy, decrease access to med. care, penitentiary, rehab)? @ -No Was there de-escalation of care discussed even if they declined (Discuss DNR or withdrawal of care, Hospice)? DNR status @ -No What co-morbidities impacted this encounter? (DM, HTN, Smoking, COPD, CAD, Cancer, CVA, ARF, Chemo, Hep., AIDS, mental health diagnosis, sleep apnea, morbid obesity)? @ -Alcoholism Was patient admitted / discharged? Hospital course, mention meds given and route, prescriptions, significant lab abnormalities, going to OR and other pertinent info. @ -Patient has been hypotensive while in the ED, but blood pressure has improved somewhat with ED management. 2 large-bore (16-gauge and 18-gauge) antecubital peripheral IVs have been established. Patient has been administered IV fluids, as well as IV packed RBC transfusion, in the ED. Patient was also given a dose of IV Protonix and started on IV octreotide drip in the ED. Given we do not have GI coverage at this [facility], I felt it was was prudent to emergently transfer the patient to the closest accepting hospital with GI coverage. [facility] is not currently accepting any patient's. Patient has been accepted for ambulance transfer to [facility]. Just prior to ambulance transfer, the patient went into ventricular fibrillation arrest. Patient was defibrillated and administered epinephrine 1 mg IV, then cardioverted to a normal sinus rhythm. Patient was intubated in the ED. [facility] ED was updated. Patient and daughters 2 are aware of the patient's test results and they continued to agree with plan to transfer the patient to [facility] for GI evaluation/further definitive management of his upper GI bleed. Undiagnosed new problem with uncertain prognosis? @ -No Drug Therapy requiring intensive monitoring for toxicity (Heparin, Nitro, Insulin, Cardizem)? @ -No Were any procedures done? @ -No Diagnosis/symptom? @ -Upper GI bleed Acute, or Chronic, or Acute on Chronic? @ -Acute Uncomplicated (without systemic symptoms) or Complicated (systemic symptoms)? @ -default Side effects of treatment? @ -No Exacerbation, Progression, or Severe Exacerbation? @ -No Poses a threat to life or bodily function? How? (Chest pain, USA, PA, pneumonia, PE, COPD, DKA, ARF, appy, cholecystitis, CVA, Diverticulitis, Homicidal, Cassidy cidal, threat to staff... and all critical care pts) @ -Yes. Diagnosis/symptom? @ -Anemia Acute, or Chronic, or Acute on Chronic? @ -Acute Uncomplicated (without systemic symptoms) or Complicated (systemic symptoms)? @ -default Side effects of treatment? @ -none Exacerbation, Progression, or Severe Exacerbation @ -no Poses a threat to life or bodily function? @ -Yes Diagnosis/symptom? @ -Hypotension Acute, or Chronic, or Acute on Chronic? @ -Acute Uncomplicated (without systemic symptoms) or Complicated (systemic symptoms)? @ -default Side effects of treatment? @ -none Exacerbation, Progression, or Severe Exacerbation @ -no Poses a threat to life or bodily function? @ -Yes Diagnosis/symptom? @ -Ventricular fibrillation cardiac arrest Acute, or Chronic, or Acute on Chronic? @ -Acute Uncomplicated (without systemic symptoms) or Complicated (systemic symptoms)? @ -default Side effects of treatment? @ -none Exacerbation, Progression, or Severe Exacerbation] @ -no Poses a threat to life or bodily function? @ -Yes Diagnosis/symptom? @ -Elevated troponin Acute, or Chronic, or Acute on Chronic? @ -default Uncomplicated (without systemic symptoms) or Complicated (systemic symptoms)? @ -default Side effects of treatment? @ -none Exacerbation, Progression, or Severe Exacerbation] @ -no Poses a threat to life or bodily function? @ -Yes - Lab Data Result diagrams: 03/03/23 19:25 03/03/23 19:25 Lab Results 03/03/23 03/03/23 03/03/23 Range/Units 19:25 19:25 19:25 WBC 13.9 H (3.8-10.6) k/uL RBC 1.45 L (4.30-5.90) m/uL Hgb 4.9 L* (13.0-17.5) gm/dL Hct 14.0 L* (39.0-53.0) % MCV 96.5 (80.0-100.0) fL MCH 33.7 (25.0-35.0) pg MCHC 34.9 (31.0-37.0) g/dL RDW 14.1 (11.5-15.5) % Plt Count 140 L (150-450) k/uL MPV 8.5 Neutrophils % 90 % Lymphocytes % 3 % Monocytes % 5 % Eosinophils % 0 % Basophils % 0 % Neutrophils # 12.6 H (1.3-7.7) k/uL Lymphocytes # 0.4 L (1.0-4.8) k/uL Monocytes # 0.7 (0-1.0) k/uL Eosinophils # 0.0 (0-0.7) k/uL Basophils # 0.0 (0-0.2) k/uL PT 14.4 H (9.0-12.0) sec INR 1.4 H (<1.2) APTT 22.1 (22.0-30.0) sec Sodium 130 L (137-145) mmol/L Potassium 3.7 (3.5-5.1) mmol/L Chloride 102 (98-107) mmol/L Carbon Dioxide 18 L (22-30) mmol/L Anion Gap 10 mmol/L BUN 66 H (9-20) mg/dL Creatinine 0.91 (0.66-1.25) mg/dL Est GFR (CKD-EPI)AfAm >90 (>60 ml/min/1.73 sqM) Est GFR (CKD-EPI)NonAf 84 (>60 ml/min/1.73 sqM) Glucose 120 H (74-99) mg/dL Plasma Lactic Acid William (0.7-2.0) mmol/L Calcium 9.2 (8.4-10.2) mg/dL Total Bilirubin 0.2 (0.2-1.3) mg/dL AST 27 (17-59) U/L ALT 22 (4-49) U/L Alkaline Phosphatase 30 L (38-126) U/L Troponin I (0.000-0.034) ng/mL Total Protein 4.6 L (6.3-8.2) g/dL Albumin 2.8 L (3.5-5.0) g/dL Lipase 157 (23-300) U/L Serum Alcohol <10 mg/dL Blood Type Blood Type Recheck Bld Type Recheck Status Antibody Screen Crossmatch Spec Expiration Date 03/03/23 03/03/23 03/03/23 Range/Units 19:25 19:36 20:39 WBC (3.8-10.6) k/uL RBC (4.30-5.90) m/uL Hgb (13.0-17.5) gm/dL Hct (39.0-53.0) % MCV (80.0-100.0) fL MCH (25.0-35.0) pg MCHC (31.0-37.0) g/dL RDW (11.5-15.5) % Plt Count (150-450) k/uL MPV Neutrophils % % Lymphocytes % % Monocytes % % Eosinophils % % Basophils % % Neutrophils # (1.3-7.7) k/uL Lymphocytes # (1.0-4.8) k/uL Monocytes # (0-1.0) k/uL Eosinophils # (0-0.7) k/uL Basophils # (0-0.2) k/uL PT (9.0-12.0) sec INR (<1.2) APTT (22.0-30.0) sec Sodium (137-145) mmol/L Potassium (3.5-5.1) mmol/L Chloride (98-107) mmol/L Carbon Dioxide (22-30) mmol/L Anion Gap mmol/L BUN (9-20) mg/dL Creatinine (0.66-1.25) mg/dL Est GFR (CKD-EPI)AfAm (>60 ml/min/1.73 sqM) Est GFR (CKD-EPI)NonAf (>60 ml/min/1.73 sqM) Glucose (74-99) mg/dL Plasma Lactic Acid William 4.2 H* (0.7-2.0) mmol/L Calcium (8.4-10.2) mg/dL Total Bilirubin (0.2-1.3) mg/dL AST (17-59) U/L ALT (4-49) U/L Alkaline Phosphatase (38-126) U/L Troponin I 0.782 H* (0.000-0.034) ng/mL Total Protein (6.3-8.2) g/dL Albumin (3.5-5.0) g/dL Lipase (23-300) U/L Serum Alcohol mg/dL Blood Type A Negative Blood Type Recheck A Neg Bld Type Recheck Status No Antibody Screen NEGATIVE Crossmatch See Detail Spec Expiration Date 03/06/20232335 - Radiology Data Chest x-ray (interpreted by me): ET tube appears to be in good position. No acute cardiopulmonary disease. Critical Care Time Critical Care Time: Yes Total Critical Care Time: 90 Disposition Clinical Impression: Weakness, Hypotension, Anemia, Upper GI bleed, Cardiac arrest with ventricular fibrillation Disposition: OTHER INSTITUTION NOT DEFINED Condition: Critical Is patient prescribed a controlled substance at d/c from ED?: No Referrals: Maggy Siegel DO [Primary Care Provider] - 1-2 days Time of Disposition: 20:38 - Out of Hospital Transfer - Req. Specs Out of Hospital Transfer - Requested Specifics: Other Emergency Center ([facility] emergency department)
[2023-03-03] MEDS ORDERED: SODIUM CHLORIDE 0.9% 1,000 ML IV ONE (19:58)
[2023-03-03] MEDS ORDERED: ONDANSETRON 4 MG/2 ML VIAL IVP STA (19:58)
[2023-03-03] MEDS ORDERED: OCTREOTIDE 100 MCG/ML INJ IVP STA (20:16)
[2023-03-03 20:18] LABS: Basophils % (A) 0 %; Eosinophils % (A) 0 %; Lymphocytes # (A) 0.4 k/uL (1.0-4.8); Lymphocytes % (A) 3 %; MCH 33.7 pg (25.0-35.0); MCHC 34.9 g/dL (31.0-37.0); MCV 96.5 fL (80.0-100.0); Mean Platelet Volume 8.5; Monocytes # (A) 0.7 k/uL (0-1.0); Monocytes % (A) 5 %; Neutrophils # (A) 12.6 k/uL (1.3-7.7); Neutrophils % (A) 90 %; Platelet Count 140 k/uL (150-450); RBC 1.45 m/uL (4.30-5.90); RDW 14.1 % (11.5-15.5); WBC 13.9 k/uL (3.8-10.6)
[2023-03-03 20:24] LABS: HGB 4.9 gm/dL (13.0-17.5)
[2023-03-03 20:30] LABS: ALT 22 U/L (4-49); AST 27 U/L (17-59); African American GFR (CKD) >90 (>60 ml/min/1.73 sqM); Albumin 2.8 g/dL (3.5-5.0); Alcohol <10 mg/dL; Alkaline Phosphatase 30 U/L (38-126); Anion Gap 10 mmol/L; Blood Urea Nitrogen 66 mg/dL (9-20); Calcium 9.2 mg/dL (8.4-10.2); Carbon Dioxide 18 mmol/L (22-30); Chloride 102 mmol/L (98-107); Glucose 120 mg/dL (74-99); Lipase 157 U/L (23-300); Non-African American GFR(CKD) 84 (>60 ml/min/1.73 sqM); Potassium 3.7 mmol/L (3.5-5.1); Sodium 130 mmol/L (137-145); Total Bilirubin 0.2 mg/dL (0.2-1.3); Total Protein 4.6 g/dL (6.3-8.2)
[2023-03-03] MEDS ORDERED: OCTREOTIDE 500 MCG in SODIUM CHLORIDE 0.9% 250 ML IV SCH (20:30)
[2023-03-03 20:45] LABS: INR 1.4 (<1.2); Partial Thromboplastin Time 22.1 sec (22.0-30.0); Prothrombin Time 14.4 sec (9.0-12.0)
[2023-03-03 20:52] VITALS: RESP 16; TEMP 96.7
[2023-03-03] MEDS ORDERED: ETOMIDATE 2 MG/ML 10 ML VIAL ONE (21:24)
[2023-03-03] MEDS ORDERED: EPINEPHrine 10 ML SYRINGE (0.1 MG/ML) ONE (21:24)
[2023-03-03] MEDS ORDERED: SUCCINYLCHOLINE CHLORIDE 200 MG/10 ML VIAL IV ONE (21:24)
[2023-03-03] MEDS ORDERED: NOREPINEPHRINE 4 MG in SODIUM CHLORIDE 0.9% 250 ML IV ONE (21:45)
[2023-03-03] MEDS ORDERED: MIDAZOLAM 1 MG/ML 5 ML VIAL IV STA (21:56)
--- NOTE | 2023-03-03 22:24 | XR ---
EXAMINATION TYPE: XR chest 1V portable DATE OF EXAM: 03/03/2023 COMPARISON: 05/21/2018 INDICATION: ET and OG tube TECHNIQUE: Single frontal view of the chest is obtained. FINDINGS: The heart size is normal. The pulmonary vasculature is normal. The lungs are clear. Endotracheal tube is place with tip 6.5 cm above the kimberly. Nasogastric tube transverses the thorax with tip in the left upper quadrant of the abdomen. Sternotomy wires are in the midline. IMPRESSION: 1. No acute pulmonary process. 2. Endotracheal tube and nasogastric tube in position discussed above
[2023-03-03 22:56] VITALS: BP 84/65; PULSE 87
== END 2023-03-03 22:27 | disposition other institution (70) ==
LOC: EC 19:10
DX: R53.1 Weakness (principal); I95.9 Hypotension, unspecified; D64.9 Anemia, unspecified; K92.2 Gastrointestinal hemorrhage, unspecified; I46.9 Cardiac arrest, cause unspecified; I49.01 Ventricular fibrillation; I25.10 Atherosclerotic heart disease of native coronary artery without angina pectoris; I50.9 Heart failure, unspecified; F17.200 Nicotine dependence, unspecified, uncomplicated; F12.90 Cannabis use, unspecified, uncomplicated; Z79.899 Other long term (current) drug therapy; Z79.02 Long term (current) use of antithrombotics/antiplatelets
CPT/HCPCS: 99291; 99292; 96365; 96366; 96367; 96375 ×2; 96361 ×2; 31500; 36430; 36415; 94002; 92950; 93005; 86900; 86901; 80053; 83605; 83690; 84484; 85025; 85610; 85730; 86850; 86920; 87070; 87205; 71045; P9016; G0480; J0330; J2405; J2354 ×2; J0171; J2250; J2704; C9113; 80320

== ENCOUNTER → 2023-08-01 | Outpatient (CLI) | payer MEDICARE ==
[2023-08-01 10:35] LABS: African American GFR (CKD) >90 (>60 ml/min/1.73 sqM); Blood Urea Nitrogen 10 mg/dL (9-20); Non-African American GFR(CKD) >90 (>60 ml/min/1.73 sqM)
--- NOTE | 2023-08-01 13:07 | CT ---
EXAMINATION TYPE: CT angio abd aorta w/Runoff CT DLP: 3028.90 mGycm, Automated exposure control for dose reduction was used. DATE OF EXAM: 08/01/2023 12:02 PM COMPARISON: 09/08/2020 CLINICAL INDICATION:Male, 73 years old with history of I71.43 INFRARENAL ABDOMINAL AORTIC ANEURYSM,; PHH, AAA and PVD. 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 3-D reconstructed images and maximum intensity projection images were obtained. CT angio abd aorta w /Runoff CT Contrast: Contrast used:110ml mL of Isovue 370 without and with IV Contrast, Oral contrast used: None FINDINGS: CTA Abdomen and pelvis: No evidence for intramural hematoma on noncontrast imaging. Postcontrast imag ing illustrates patent descending thoracic aorta where visualized. The abdominal aorta and its major branches demonstrate scattered atherosclerotic plaque. Plaque at the origin of the superior mesenteri c artery with at least 25% stenosis as well as at the origins of the bilateral renal arteries at leas t 50% stenosis. There is fusiform that aneurysmal dilation of the infrarenal abdominal aorta with mur al thrombus measuring up to 5.5 x 5.9 cm. (Previously 4.9 x 4.7 cm on 09/08/2020) There is fusiform d ilation of the right common iliac artery measuring up to 2.2 cm. The common iliac and external iliac artery stents with severe atherosclerotic plaque along their course. CTA Lower extremities: Right: Common femoral artery is patent. The superficial femoral artery demonstrate high-grade stenosi s near its origin to the superficial femoral artery history of severe atherosclerotic plaque along it s course which is difficult to evaluate for patency. There is multiple areas that appear occluded ext ending along the superficial femoral artery with reconstitution in the popliteal artery.Limited evalu ation of the vessels of the leg secondary to extensive atherosclerosis in poor bolus timing. There is thought to be just posterior tibial artery crossing the ankle. Anterior tibial artery appears occlud ed. Left: The common femoral artery is patent. The origin of the superficial femoral artery extending fro m its origin to the popliteal artery is occluded. Reconstitution at the leg vasculature with what is felt to be 2 vessels crossing the ankle both anterior and posterior tibial arteries. LOWER CHEST: No evidence of focal consolidation, pneumothorax or pleural effusion. LIVER: Unremarkable GALLBLADDER AND BILE DUCTS: Unremarkable. PANCREAS: Unremarkable. SPLEEN: Unremarkable. ADRENAL GLANDS: Unremarkable. KIDNEYS AND URETERS: Nonobstructing calculi bilaterally which could be vascular calcifications. No o bstructive uropathy. There is a new exophytic medial renal mass with enhancement measuring 23 x 21 mm . PELVIS BLADDER: Unremarkable REPRODUCTIVE: Unremarkable. ABDOMEN & PELVIS STOMACH AND BOWEL: No evidence of bowel obstruction. Scattered colonic diverticula. PERITONEUM: No evidence of pneumoperitoneum or free fluid. VASCULATURE: No evidence of aortic aneurysm. MUSCULOSKELETAL: No acute osseous abnormalities LYMPH NODES: No gross evidence for lymphadenopathy. SOFT TISSUE/ABDOMINAL WALL: Right inguinal hernia containing part of a loop of colon. IMPRESSION 1. 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 Further evaluation recommended. No evidence of lymphadenopathy. 2. Occlusion of the left superficial femoral artery with reconstitution near the vessels of the legs with 2 vessels crossing the ankle and the left. 3. 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 The anterior tibial artery on the right appears occluded. 4. Infrarenal abdominal aorta fusiform dilation up to 5.9 cm. Vascular surgical consultation recomme nded. 5. Right inguinal hernia containing loop of cecum. 6. Colonic diverticulosis.
== END | disposition home or self-care (01) ==
LOC: RADCTMAIN 09:54
PROVIDERS: ATTEND Surgery Vascular Surgery
DX: I71.43 Infrarenal abdominal aortic aneurysm, without rupture (principal); K40.90 Unilateral inguinal hernia, without obstruction or gangrene, not specified as recurrent; K57.30 Diverticulosis of large intestine without perforation or abscess without bleeding; N28.89 Other specified disorders of kidney and ureter; I70.203 Unspecified atherosclerosis of native arteries of extremities, bilateral legs
CPT/HCPCS: 82565; 84520; 75635; 36415; Q9967

== ENCOUNTER 2023-09-19 14:54 | Inpatient (IN) | payer MEDICARE ==
--- NOTE | 2023-09-19 16:43 | ED ---
Skin/Abscess/FB HPI - General Source: patient Mode of arrival: wheelchair Limitations: no limitations <Raimundo Mclean - Last Filed: 09/19/23 16:43> - History of Present Illness MD complaint: discoloration Onset/Timin -: days(s) Location: L foot Severity: moderate Quality: aching Consistency: constant Improves with: none Worsens with: other (Elevation) Context: none Associated symptoms: denies other symptoms Treatments Prior to Arrival: none <Tay Youssef - Last Filed: 10/02/23 06:54> - General Chief complaint: Skin/Abscess/Foreign Body Stated complaint: Wound on left big toe Time Seen by Provider: 09/19/23 16:42 - History of Present Illness Initial comments: Quicknote: Patient is a 73 y/o male presenting with CC of "my left big toe is turning black." History of PAD, sees Dr. Falk. Was instructed to come in by wound care. Electronically signed, Raimundo Mclean PA-C (Raimundo Mclean) This patient is 73-year-old man who presents evaluation for a discoloration and pain to the left great toe. The patient states that he has been having pains intermittently going back probably 6 weeks. He is seen at the wound care center. Patient states that he called wound care clinic earlier today because the color was not good, probably worsening than had been since Sunday. He was told to be seen in the emergency department. Patient has not noted fever or drainage. He states that he is still changing his dressings as directed related to the second toe amputation he had a number weeks ago. Patient states that he has been following with Dr. Padilla, from vascular surgery and is supposed to have a procedure for his aorta on October 05 and then that they were possibly going to stent his popliteal artery hollowing that. (Tay Youssef) - Related Data Home Medications Medication Instructions Recorded Confirmed Loratadine [Claritin] 10 mg PO DAILY 09/08/20 10/01/23 Atorvastatin [Lipitor] 80 mg PO HS 09/20/23 10/01/23 Omeprazole [PriLOSEC] 20 mg PO AC-BID 09/20/23 10/01/23 Spironolactone [Aldactone] 25 mg PO DAILY 09/20/23 10/01/23 Previous Rx's Medication Instructions Recorded Clopidogrel [Plavix] 75 mg PO DAILY #30 tab 02/22/16 Montelukast [Singulair] 10 mg PO HS #30 tab 02/22/16 lisinopriL [Zestril] 2.5 mg PO HS #30 tab 02/22/16 Acetaminophen Tab [Tylenol] 650 mg PO Q6HR PRN tab 09/25/23 Aspirin 81 mg PO DAILY tab 09/25/23 Folic Acid 1 mg PO DAILY tab 09/25/23 Furosemide [Lasix] 40 mg PO DAILY #30 tablet 09/25/23 Gabapentin 600 mg PO TID #9 tab 09/25/23 HYDROcodone/APAP 5-325MG [[place] 1 each PO Q6H PRN #12 tab 09/25/23 5-325] Magnesium Citrate and Oxide 500 mg PO DAILY #30 cap 09/25/23 [Magnesium] Multivitamins, Thera [Multivitamin 1 each PO DAILY tab 09/25/23 (formulary)] Piperacillin-Tazobactam [Zosyn] 3.375 gm IVPB Q8HR #120 each 09/25/23 Thiamine [Vitamin B-1] 100 mg PO DAILY tab 09/25/23 polyethylene glycoL 3350 [Miralax] 17 gm PO DAILY packet 09/25/23 carvediloL [Coreg] 6.25 mg PO BID #60 tablet 09/26/23 Allergies Allergy/AdvReac Type Severity Reaction Status Date / Time No Known Allergies Allergy Verified 10/01/23 13:08 Review of Systems ROS Other: All systems not noted in ROS Statement are negative. <Raimundo Mclean - Last Filed: 09/19/23 16:43> ROS Other: All systems not noted in ROS Statement are negative. Constitutional: Denies: fever, chills Respiratory: Denies: cough, dyspnea Cardiovascular: Denies: chest pain, palpitations, edema Gastrointestinal: Denies: abdominal pain, vomiting, diarrhea Genitourinary: Denies: dysuria, hematuria Musculoskeletal: Reports: as per HPI, arthralgia Skin: Reports: change in color. Denies: rash Neurological: Reports: paresthesias. Denies: weakness, numbness <Tay Youssef - Last Filed: 10/02/23 06:54> ROS Statement: Those systems with pertinent positive or pertinent negative responses have been documented in the HPI. Past Medical History Past Medical History: Coronary Artery Disease (CAD), Heart Failure, Hyperlipidemia, Hypertension, Vascular Disorder Additional Past Medical History / Comment(s): aortic aneusrym, herniated disc, peripheral vascular disease History of Any Multi-Drug Resistant Organisms: None Reported Past Surgical History: Appendectomy, Coronary Bypass/CABG, Orthopedic Surgery Additional Past Surgical History / Comment(s): Right rotater cuff repair Past Anesthesia/Blood Transfusion Reactions: No Reported Reaction Past Psychological History: No Psychological Hx Reported Smoking Status: Current some day smoker, Light tobacco smoker Past Alcohol Use History: Daily, Occasional Past Drug Use History: Marijuana - Past Family History Father Family Medical History: Coronary Artery Disease (CAD) Additional Family Medical History / Comment(s): triple bypass Mother Family Medical History: Coronary Artery Disease (CAD), Dementia <Raimundo Mclean - Last Filed: 09/19/23 16:43> General Exam General appearance: alert, in no apparent distress Head exam: Present: atraumatic, normocephalic Eye exam: Present: normal appearance Neck exam: Present: normal inspection Respiratory exam: Absent: respiratory distress Neurological exam: Present: alert, oriented X3 Psychiatric exam: Present: normal affect, normal mood <Raimundo Mcelan - Last Filed: 09/19/23 16:43> General appearance: alert, in no apparent distress Head exam: Present: atraumatic, normocephalic Eye exam: Present: normal appearance. Absent: scleral icterus, conjunctival injection Neck exam: Present: normal inspection Respiratory exam: Present: normal lung sounds bilaterally. Absent: respiratory distress, wheezes, rales, rhonchi, stridor Cardiovascular Exam: Present: regular rate, normal rhythm, normal heart sounds. Absent: systolic murmur, diastolic murmur, rubs, gallop GI/Abdominal exam: Present: soft. Absent: distended, tenderness, guarding, rebound, rigid, mass Left Hip exam: Present: normal inspection, full ROM Upper Leg exam: Present: normal inspection, full ROM Knee exam: Present: normal inspection, full ROM Lower Leg exam: Present: normal inspection, full ROM Back exam: Present: normal inspection Neurological exam: Present: alert Skin exam: Present: warm, dry, cyanosis, other (The patient does have ischemia left great toe circulation does appear intact to foot). Absent: normal color <AmieTay dela cruz - Last Filed: 10/02/23 06:54> Course Vital Signs 09/19/23 09/19/23 09/19/23 15:18 21:18 22:20 Temperature 98 F 98.7 F Pulse Rate 79 99 100 Respiratory 16 16 14 Rate Blood Pressure 135/65 159/80 163/81 O2 Sat by Pulse 95 95 95 Oximetry 09/19/23 09/20/23 09/20/23 23:00 00:00 00:29 Temperature Pulse Rate 98 95 101 H Respiratory 21 22 15 Rate Blood Pressure 163/81 169/85 155/87 O2 Sat by Pulse 100 97 98 Oximetry 09/20/23 09/20/23 09/20/23 02:00 03:00 04:00 Temperature Pulse Rate 91 89 97 Respiratory 23 16 18 Rate Blood Pressure 156/90 169/78 169/88 O2 Sat by Pulse 99 100 100 Oximetry 09/20/23 06:52 Temperature Pulse Rate 101 H Respiratory 16 Rate Blood Pressure 165/92 O2 Sat by Pulse 100 Oximetry Medical Decision Making - Lab Data Result diagrams: 09/25/23 09:16 09/25/23 16:32 <Tay Youssef - Last Filed: 10/02/23 06:54> - Medical Decision Making The patient had x-ray of the foot which I interpreted as showing presence of previous amputation, no acute fracture. There does appear to be some subcutaneous gas may be related to patient's recent amputation versus gangrene Was pt. sent in by a medical professional or institution (, PA, [employer], urgent care, hospital, or skilled nursing...) When possible be specific @ -[The patient was recommended to be seen by the wound care clinic Did you speak to anyone other than the patient for history (EMS, parent, family, police, friend...)? What history was obtained from this source @ -[No] Did you review nursing and triage notes (agree or disagree)? Why? @ -[I reviewed and agree with nursing and triage notes] Were old charts reviewed (outside hosp., previous admission, EMS record, old EKG, old radiological studies, urgent care reports/EKG's, skilled nursing records)? Report findings @ -[No old charts were reviewed] Differential Diagnosis (chest pain, altered mental status, abdominal pain women, abdominal pain men, vaginal bleeding, weakness, fever, dyspnea, syncope, headache, dizziness, GI bleed, back pain, seizure, CVA, palpatations, mental health, musculoskeletal)? @ -[Differential Musculoskeletal fracture, arthritis, septic arthritis, bursitis, cellulitis, osteomyelitis, ischemia/gangrene of toe, DVT, arterial occlusion. This is not meant to be in all inclusive list EKG interpreted by me (3pts min.). @ -[As above] X-rays interpreted by me (1pt min.). @ -[I interpreted as above CT interpreted by me (1pt min.). @ -[None done] U/S interpreted by me (1pt. min.). @ -[None done] What testing was considered but not performed or refused? (CT, X-rays, U/S, labs)? Why? @ -[None] What meds were considered but not given or refused? Why? @ -[None] Did you discuss the management of the patient with other professionals (professionals i.e. , PA, [employer], lab, RT, psych nurse, social media intern, plastic dolls mold filler, teacher, environmental technical officer, case specialist)? Give summary @ -[Case discussed with admitting physician and patient will be admitted to have further treatment and vascular surgery consultation Was smoking cessation discussed for >3mins.? @ -[No] Was critical care preformed (if so, how long)? @ -[No] Were there social determinants of health that impacted care today? How? (Homelessness, low income, unemployed, alcoholism, drug addiction, transportation, low edu. Level, literacy, decrease access to med. care, fpc, rehab)? @ -[No] Was there de-escalation of care discussed even if they declined (Discuss DNR or withdrawal of care, Hospice)? DNR status @ -[No] What co-morbidities impacted this encounter? (DM, HTN, Smoking, COPD, CAD, Cancer, CVA, ARF, Chemo, Hep., AIDS, mental health diagnosis, sleep apnea, morbid obesity)? @ -[None] Was patient admitted / discharged? Hospital course, mention meds given and route, prescriptions, significant lab abnormalities, going to OR and other pertinent info. @ -[Patient admitted Undiagnosed new problem with uncertain prognosis? @ -[No] Drug Therapy requiring intensive monitoring for toxicity (Heparin, Nitro, Insulin, Cardizem)? @ -[No] Were any procedures done? @ -[No] Diagnosis/symptom? @ -[Acute ischemic toe Hyponatremia Anemia Acute, or Chronic, or Acute on Chronic? @ -[Acute Uncomplicated (without systemic symptoms) or Complicated (systemic symptoms)? @ -[Uncomplicated Side effects of treatment? @ -[No] Exacerbation, Progression, or Severe Exacerbation? @ -[Progression Poses a threat to life or bodily function? How? (Chest pain, [place], PR, pneumonia, PE, COPD, DKA, ARF, appy, cholecystitis, CVA, Diverticulitis, Homicidal, Suicidal, threat to staff... and all critical care pts) @ -[Yes (Tay Youssef) - Lab Data Lab Results 09/19/23 09/19/23 09/19/23 Range/Units 19:06 19:06 19:06 WBC 12.0 H (3.8-10.6) k/uL RBC 2.88 L (4.30-5.90) m/uL Hgb 7.8 L (13.0-17.5) gm/dL Hct 24.3 L (39.0-53.0) % MCV 84.4 (80.0-100.0) fL MCH 27.2 (25.0-35.0) pg MCHC 32.2 (31.0-37.0) g/dL RDW 16.1 H (11.5-15.5) % Plt Count 463 H (150-450) k/uL MPV 6.8 Neutrophils % 86 % Lymphocytes % 3 % Monocytes % 6 % Eosinophils % 1 % Basophils % 0 % Neutrophils # 10.3 H (1.3-7.7) k/uL Lymphocytes # 0.4 L (1.0-4.8) k/uL Monocytes # 0.8 (0-1.0) k/uL Eosinophils # 0.1 (0-0.7) k/uL Basophils # 0.0 (0-0.2) k/uL Hypochromasia Slight Anisocytosis Slight ESR 38 H (0-20) mm/Hr Sodium 126 L (137-145) mmol/L Potassium 4.6 (3.5-5.1) mmol/L Chloride 93 L (98-107) mmol/L Carbon Dioxide 25 (22-30) mmol/L Anion Gap 8 mmol/L BUN 12 (9-20) mg/dL Creatinine 0.49 L (0.66-1.25) mg/dL Est GFR (CKD-EPI)AfAm >90 (>60 ml/min/1.73 sqM) Est GFR (CKD-EPI)NonAf >90 (>60 ml/min/1.73 sqM) Glucose 98 (74-99) mg/dL Plasma Lactic Acid [place] 1.0 (0.7-2.0) mmol/L Calcium 8.9 (8.4-10.2) mg/dL Total Bilirubin 0.3 (0.2-1.3) mg/dL AST 18 (17-59) U/L ALT 17 (4-49) U/L Alkaline Phosphatase 134 H (38-126) U/L C-Reactive Protein 12.5 H (<1.0) mg/dL Total Protein 6.5 (6.3-8.2) g/dL Albumin 3.5 (3.5-5.0) g/dL Disposition <Raimundo Mclean - Last Filed: 09/19/23 16:43> Is patient prescribed a controlled substance at d/c from ED?: No <Tay Youssef - Last Filed: 10/02/23 06:54> Clinical Impression: Ischemic toe, Hyponatremia, Anemia Disposition: ADMITTED IP TO THIS HOSP Condition: Stable
--- NOTE | 2023-09-19 17:23 | XR ---
EXAMINATION TYPE: XR toes LT DATE OF EXAM: 09/19/2023 5:05 PM CLINICAL INDICATION:Male, 73 years old with history of L big toe infection; [facility] COMPARISON: None TECHNIQUE: XR toes LT examined in the AP, oblique, and lateral projections. FINDINGS: Subcutaneous gas around the first digit medial aspect of the metatarsophalangeal joint. Early osseous erosion may be present along the lateral medial margin of thee metatarsophalangeal joint suggest ost eomyelitis. No evidence of fracture. No dislocation. Soft tissue swelling identified on the right toe . There is post amputation changes of the second and third digits. IMPRESSION: * Subcutaneous gas with possible early osteophyte involving the first digit proximal phalanx and met atarsal head. * Postsurgical changes to the second and third digit without definitive osteomyelitis.
[2023-09-19 19:34] LABS: Anisocytosis Slight; Basophils % (A) 0 %; Eosinophils # (A) 0.1 k/uL (0-0.7); Eosinophils % (A) 1 %; HCT 24.3 % (39.0-53.0); HGB 7.8 gm/dL (13.0-17.5); Hypochromasia Slight; Lymphocytes # (A) 0.4 k/uL (1.0-4.8); Lymphocytes % (A) 3 %; MCH 27.2 pg (25.0-35.0); MCHC 32.2 g/dL (31.0-37.0); MCV 84.4 fL (80.0-100.0); Mean Platelet Volume 6.8; Monocytes # (A) 0.8 k/uL (0-1.0); Monocytes % (A) 6 %; Neutrophils # (A) 10.3 k/uL (1.3-7.7); Neutrophils % (A) 86 %; Platelet Count 463 k/uL (150-450); RBC 2.88 m/uL (4.30-5.90); RDW 16.1 % (11.5-15.5)
[2023-09-19 19:46] LABS: ALT 17 U/L (4-49); AST 18 U/L (17-59); African American GFR (CKD) >90 (>60 ml/min/1.73 sqM); Albumin 3.5 g/dL (3.5-5.0); Alkaline Phosphatase 134 U/L (38-126); Anion Gap 8 mmol/L; Blood Urea Nitrogen 12 mg/dL (9-20); Calcium 8.9 mg/dL (8.4-10.2); Carbon Dioxide 25 mmol/L (22-30); Chloride 93 mmol/L (98-107); Glucose 98 mg/dL (74-99); Non-African American GFR(CKD) >90 (>60 ml/min/1.73 sqM); Potassium 4.6 mmol/L (3.5-5.1); Sodium 126 mmol/L (137-145); Total Bilirubin 0.3 mg/dL (0.2-1.3); Total Protein 6.5 g/dL (6.3-8.2)
[2023-09-19 20:13] LABS: C Reactive Protein 12.5 mg/dL (<1.0)
[2023-09-19] MEDS ORDERED: SODIUM CHLORIDE 0.9% 500 ML 500 ML IV STA (21:15)
[2023-09-19] MEDS: SODIUM CHLORIDE 0.9% 1,000 ML IV STA (21:44)
[2023-09-20] MEDS ORDERED: HYDROcodone/APAP 7.5-325MG 1 EACH TAB PO ONE (00:49)
[2023-09-20] MEDS ORDERED: HEPARIN SODIUM 1,000 UN/ML (10ML VL) IV PRN (01:18)
[2023-09-20] MEDS ORDERED: HEPARIN SODIUM 1,000 UN/ML (10ML VL) IV ONE (01:18)
[2023-09-20] MEDS ORDERED: ACETAMINOPHEN TAB 325 MG TAB PO PRN (01:19)
[2023-09-20] MEDS ORDERED: NALOXONE 0.4 MG/ML 1 ML VIAL IV PRN (01:19)
[2023-09-20] MEDS ORDERED: HEPARIN SOD,PORK IN 0.45% NACL 25,000 UNIT in 0.45% NACL 1 250ML.BAG IV SCH (01:30)
[2023-09-20] MEDS: SODIUM CHLORIDE 0.9% 1,000 ML IV SCH ×2 (01:35→20:50)
[2023-09-20] MEDS: SODIUM CHLORIDE 0.9% 1,000 ML IV STA (01:35)
[2023-09-20 03:56] LABS: Erythrocyte Sedimentation Rate 38 mm/Hr (0-20)
[2023-09-20] MEDS ORDERED: LORazepam 2 MG/ML INJ IV PRN ×4 (09:15)
[2023-09-20] MEDS ORDERED: THIAMINE 100 MG/ML 2 ML VIAL IM STA (09:15)
--- NOTE | 2023-09-20 09:15 | XR ---
EXAMINATION TYPE: XR chest 2V DATE OF EXAM: 09/20/2023 COMPARISON: 03/03/2023 HISTORY: 73-year-old male shortness of breath, cough TECHNIQUE: AP and lateral views FINDINGS: Median sternotomy wires are present. Heart mildly enlarged. Hyperinflation. Diffuse interstitial dens ity has increased. There may be trace pleural effusions on the lateral view. IMPRESSION: Correlate for COPD with superimposed CHF and pulmonary vascular congestion along with trace effusions . Atypical pneumonias would be an alternative consideration.
[2023-09-20] MEDS ORDERED: IPRATROPIUM-ALBUTEROL 3 ML NEB INHALATION PRN (09:18)
[2023-09-20 09:24] LABS: Anisocytosis Slight; Hypochromasia Marked; MCH 27.2 pg (25.0-35.0); MCV 87.8 fL (80.0-100.0); Mean Platelet Volume 7.2; Platelet Count 495 k/uL (150-450); RBC 2.96 m/uL (4.30-5.90); RDW 16.1 % (11.5-15.5); WBC 14.8 k/uL (3.8-10.6)
[2023-09-20 09:33] LABS: African American GFR (CKD) >90 (>60 ml/min/1.73 sqM); Anion Gap 12 mmol/L; Blood Urea Nitrogen 9 mg/dL (9-20); Carbon Dioxide 24 mmol/L (22-30); Chloride 96 mmol/L (98-107); Glucose 104 mg/dL (74-99); Non-African American GFR(CKD) >90 (>60 ml/min/1.73 sqM); Potassium 4.4 mmol/L (3.5-5.1); Sodium 132 mmol/L (137-145)
[2023-09-20] MEDS: NICOTINE 21MG/24HR PATCH TRANSDERM SCH (10:39)
--- NOTE | 2023-09-20 10:40 | P.GSCN ---
History of Present Illness Consult date: 09/20/23 Reason for Consult: Ischemic toe Requesting physician: Raimundo Mclean History of present illness: This is a 73-year-old white male who was directed yesterday to come to the emergency department by the wound care clinic. He has a history of peripheral arterial disease and left foot wound for which he has been under the care of the wound clinic and goes once a week. He states he did not go on Sunday because he was not feeling well. Yesterday he did a dressing change and noticed that his toe was discolored and purple/black. When he called the wound care clinic to come to the emergency department. He has a history of peripheral arterial disease and has followed with Dr. Pena and Dr. Falk in the past and had undergone left foot second and third toe amputations. He now is following with Dr. Padilla for infrarenal abdominal aortic aneurysm and peripheral arterial disease and states he is scheduled to have endograft done on 10/05/2023. As a past medical history including coronary artery disease status post CABG, hypertension, peripheral arterial disease, abdominal aortic aneurysm, anemia, GI bleed, daily alcohol use and nicotine dependence. He states he's been having some increased pain to bilateral lower extremities but definitely to his left foot. Denies any fevers or chills. States that he has been recently short of breath, cough and congestion. He is requiring oxygen supplementation here in the hospital but denies any use at home. He admits to drinking daily at least 3-4 beers a day. Patient denies any anticoagulation at home but does take Plavix daily. He was started on a heparin drip in the emergency department. He denies any chest pain or abdominal pain, he does state he is short of breath. Has discomfort in that left toe and foot. CT angiogram abdomen aorta with runoff done on 08/01/2023 1. New right kidney exophytic mass medially measuring up to 2.3 cm concerning for renal cell carcinoma. Further evaluation recommended. No evidence of lymph adenopathy. 2. Occlusion of the left super fascial femoral artery with reconstitution near the vessels of the legs with 2 vessels crossing the ankle and the left 3. Severe arthrosclerosis of the right SFA with multiple areas of occlusion with reconstitution at the popliteal artery and with at least one vessel p osterior tibial artery crossing the ankle. The anterior tibial artery on the right appears occluded. 4. Infrarenal abdominal aorta fusiform dilation up to 5.9 cm. Vascular surgical consultation recommended. 5. Right inguinal hernia containing loop of cecum. 6. Colonic diverticulosis Review of Systems A 14 point review systems was completed all pertinent positives and negatives as stated in the HPI. Past Medical History Past Medical History: Coronary Artery Disease (CAD), Heart Failure, Hy perlipidemia, Hypertension, Vascular Disorder Additional Past Medical History / Comment(s): aortic aneusrym, herniated disc, peripheral vascular disease History of Any Multi-Drug Resistant Organisms: None Reported Past Surgical History: Appendectomy, Coronary Bypass/CABG, Orthopedic Surgery Additional Past Surgical History / Comment(s): Right rotater cuff repair Past Anesthesia/Blood Transfusion Reactions: No Reported Reaction Past Psychological History: No Psychological Hx Reported Smoking Status: Current some day smoker, Light tobacco smoker Past Alcohol Use History: Daily, Occasional Past Drug Use History: Marijuana - Past Family History Father Family Medical History: Coronary Artery Disease (CAD) Additional Family Medical History / Comment(s): triple bypass Mother Family Medical History: Coronary Artery Disease (CAD), Dementia Medications and Allergies Home Medications Medication Instructions Recorded Confirmed Type Clopidogrel [Plavix] 75 mg PO DAILY #30 tab 02/22/16 09/20/23 Rx Montelukast [Singulair] 10 mg PO HS #30 tab 02/22/16 09/20/23 Rx lisinopriL [Zestril] 2.5 mg PO HS #30 tab 02/22/16 09/20/23 Rx Loratadine [Claritin] 10 mg PO DAILY 09/08/20 09/20/23 History Atorvastatin [Lipitor] 80 mg PO HS 09/20/23 09/20/23 History Gabapentin 600 mg PO TID 09/20/23 09/20/23 History HYDROcodone/APAP 7.5-325MG [[place] 1 tab PO BID PRN 09/20/23 09/20/23 History 7.5-325] Omeprazole [PriLOSEC] 20 mg PO AC-BID 09/20/23 09/20/23 History SILVER sulfADIAZINE Cream 1 applic TOPICAL BID 09/20/23 09/20/23 History [Silvadene 1% Cream] Spironolactone [Aldactone] 25 mg PO DAILY 09/20/23 09/20/23 History Allergies Allergy/AdvReac Type Severity Reaction Status Date / Time No Known Allergies Allergy Verified 09/19/23 15:20 Surgical - Exam Vital Signs Temp Pulse Resp BP Pulse Ox 98 F 79 16 135/65 95 09/19/23 15:18 09/19/23 15:18 09/19/23 15:18 09/19/23 15:18 09/19/23 15:18 General appearance: The patient is alert, oriented, appears in no acute distress. HET: Head is normocephalic and atraumatic. Pupils are equal and reactive. Neck: Supple. Heart: Regular. Lungs: Equal expansion, normal respiratory effort. Diminished bilaterally. Abdomen: Soft, nontender, nondistended. Extremities: Palpable bilateral femoral pulses. Left foot second and third toe previous amputation with ischemic changes to the great toe, previous amputation site and plantar aspect of midfoot. With sloughing skin and wound to the dorsal aspect of midfoot. Nonpalpable DP or PT pulses. Foot and leg warm to the touch. Sensorimotor intact. Neurological: No focal deficits. Alert and oriented 3. Results - Labs 09/20/23 08:37 09/20/23 08:43 Abnormal Lab Results - Last 24 Hours (Table) 09/19/23 09/19/23 Range/Units 19:06 19:06 WBC 12.0 H (3.8-10.6) k/uL RBC 2.88 L (4.30-5.90) m/uL Hgb 7.8 L (13.0-17.5) gm/dL Hct 24.3 L (39.0-53.0) % RDW 16.1 H (11.5-15.5) % Plt Count 463 H (150-450) k/uL Neutrophils # 10.3 H (1.3-7.7) k/uL Lymphocytes # 0.4 L (1.0-4.8) k/uL ESR 38 H (0-20) mm/Hr Sodium 126 L (137-145) mmol/L Chloride 93 L (98-107) mmol/L Creatinine 0.49 L (0.66-1.25) mg/dL Alkaline Phosphatase 134 H (38-126) U/L C-Reactive Protein 12.5 H (<1.0) mg/dL Diabetes panel 09/19/23 Range/Units 19:06 Sodium 126 L (137-145) mmol/L Potassium 4.6 (3.5-5.1) mmol/L Chloride 93 L (98-107) mmol/L Carbon Dioxide 25 (22-30) mmol/L BUN 12 (9-20) mg/dL Creatinine 0.49 L (0.66-1.25) mg/dL Glucose 98 (74-99) mg/dL Calcium 8.9 (8.4-10.2) mg/dL AST 18 (17-59) U/L ALT 17 (4-49) U/L Alkaline Phosphatase 134 H (38-126) U/L Total Protein 6.5 (6.3-8.2) g/dL Albumin 3.5 (3.5-5.0) g/dL Calcium panel 09/19/23 Range/Units 19:06 Calcium 8.9 (8.4-10.2) mg/dL Albumin 3.5 (3.5-5.0) g/dL Pituitary panel 09/19/23 Range/Units 19:06 Sodium 126 L (137-145) mmol/L Potassium 4.6 (3.5-5.1) mmol/L Chloride 93 L (98-107) mmol/L Carbon Dioxide 25 (22-30) mmol/L BUN 12 (9-20) mg/dL Creatinine 0.49 L (0.66-1.25) mg/dL Glucose 98 (74-99) mg/dL Calcium 8.9 (8.4-10.2) mg/dL Adrenal panel 09/19/23 Range/Units 19:06 Sodium 126 L (137-145) mmol/L Potassium 4.6 (3.5-5.1) mmol/L Chloride 93 L (98-107) mmol/L Carbon Dioxide 25 (22-30) mmol/L BUN 12 (9-20) mg/dL Creatinine 0.49 L (0.66-1.25) mg/dL Glucose 98 (74-99) mg/dL Calcium 8.9 (8.4-10.2) mg/dL Total Bilirubin 0.3 (0.2-1.3) mg/dL AST 18 (17-59) U/L ALT 17 (4-49) U/L Alkaline Phosphatase 134 H (38-126) U/L Total Protein 6.5 (6.3-8.2) g/dL Albumin 3.5 (3.5-5.0) g/dL - Imaging Comments: Left toe x-ray. Subcutaneous gas with possible early osteophyte involving the first digit proximal phalanx and metatarsal head. Postsurgical changes to the second and third digit without definitive osteomyelitis. Chest x-ray: report reviewed (Chest x-ray reports correlate for COPD with s uperimposed CHF and pulmonary vascular congestion along with trace effusions. Atypical pneumonia would be alternative consideration.) Assessment and Plan Assessment: 1. Wet gangrene left great toe with subcutaneous gas 2. Peripheral arterial disease 3. Shortness of breath, cough 4. Previous second and third toe amputation 5. Chronic wound to left foot 6. Abdominal aortic aneurysm 7. Coronary artery disease status post CABG 8. Anemia 9. History of GI bleed 10. Hypertension 11. Alcohol abuse 12. Nicotine dependence Plan: 1. Stop heparin drip 2. Chest x-ray ordered 3. Covid PCR ordered 4. Stat type and screen, 1 unit PRBC ordered 5. Repeat CBC, BMP 6. Patient scheduled for left great toe amputation possible transmetatarsal amputation 7. Infectious disease consulted for antibiotic recommendations 8. Discussed with patient importance of smoking cessation and alcohol abstinence 9. The rest of Medical management per primary medical team Thank you for this consultation, we will continue to follow. The impression and plan of care has been dictated as directed. I performed a history and examination of this patient, discussed the same with the dictator. I agree with the dictator's note ,documented as a scribe. Any additional findings or plans will be noted.
[2023-09-20] MEDS: PANTOPRAZOLE 40 MG/10 ML VIAL IVP SCH (10:41)
[2023-09-20] MEDS: IPRATROPIUM-ALBUTEROL 3 ML NEB INHALATION SCH ×3 (11:29→19:29)
[2023-09-20] MEDS ORDERED: VANCOMYCIN IV PER PHARMACY 1 EACH MISC MISCELLANE PRN (12:28)
[2023-09-20] MEDS ORDERED: AZITHROMYCIN 500 MG in SODIUM CHLORIDE 0.9% 250 ML IVPB SCH (12:45)
[2023-09-20] MEDS ORDERED: VANCOMYCIN 1,250 MG in SODIUM CHLORIDE 0.9% 250 ML IVPB ONE (13:00)
[2023-09-20] MEDS ORDERED: ONDANSETRON 4 MG/2 ML VIAL ONE ×2 (13:26→14:09)
--- NOTE | 2023-09-20 13:36 | P.HPIM ---
History of Present Illness H&P Date: 09/20/23 Chief Complaint: Worsening left foot wounds This is a 73-year-old gentleman with past medical history significant for chronic left foot wound, left foot second and third toe amputations,follows with [facility], PAD, infrarenal AAA, CAD, CABG, GI bleed, anemia, herniated disc, hypertension, hyperlipidemia, nicotine dependence, daily alcohol use-reports 2X 12 ounce beers daily, and multiple other medical issues reports he was directed by the wound care center to proceed to the ER related to increased wound drainage. Patient missed his wound care appointment on Sunday, phoned into the wound care center to report worsening appearance, drainage, pain of his left foot/great toe. Complains of new onset of shortness of breath, congested cough. Denies chest pain, palpitations. Denies fever,chills or sweats. Denies body aches. Patient is a vague historian. Chest x-ray reported - correlate for COPD with superimposed CHF and pulmonary vascular congestion along with trace effusions, atypical pneumonia would be alternative consideration. Recent CTA abdomen aorta with runoff completed on 08/02 reported: New right kidney exophytic mass medially measuring up to 2.3 cm concerning for renal cell carcinoma. No evidence of lymph adenopathy.Occlusion of the left super fascial femoral artery with reconstitution near the vessels of the legs with 2 vessels crossing the ankle and the left.Severe arthrosclerosis of the right SFA with multiple areas of occlusion with reconstitution at the popliteal artery and with at least one vessel posterior tibial artery crossing the ankle. The anterior tibial artery on the right appears occluded. Infrarenal abdominal aorta fusiform dilation up to 5.9 cm. (Patient is scheduled for endograft on 10/05/[address] Padilla[address] Right inguinal hernia containing loop of cecum. Colonic diverticulosis. Left toe x-ray reported subcutaneous gas with possible early osteophyte involving the first digit proximal phalanx and metatarsal head. Postsurgical changes to the second and third digit without definitive osteomyelitis.Afebrile, WBC 14.8, hemoglobin 8, platelets 495, MCV 87.8. Sodium 132, potassium 4.4, bicarb 24, BUN 9, creatinine 0.44, glucose 104, lactic acid 1, alk phos 134, CRP 12.5. Maintaining O2 sats above 90% on 3 L nasal cannula. Covid testing in progress. Anticoagulation with heparin drip initiated in the ER. Review of Systems ROS Statement: Those systems with pertinent positive or pertinent negative responses have been documented in the HPI. ROS Other: All systems not noted in ROS Statement are negative. Past Medical History Past Medical History: Coronary Artery Disease (CAD), Heart Failure, Hyperlipidemia, Hypertension, Vascular Disorder Additional Past Medical History / Comment(s): aortic aneusrym, herniated disc, peripheral vascular disease History of Any Multi-Drug Resistant Organisms: None Reported Past Surgical History: Appendectomy, Coronary Bypass/CABG, Orthopedic Surgery Additional Past Surgical History / Comment(s): Right rotater cuff repair Past Anesthesia/Blood Transfusion Reactions: No Reported Reaction Past Psychological History: No Psychological Hx Reported Smoking Status: Current some day smoker, Light tobacco smoker Past Alcohol Use History: Daily, Occasional Past Drug Use History: Marijuana - Past Family History Father Family Medical History: Coronary Artery Disease (CAD) Additional Family Medical History / Comment(s): triple bypass Mother Family Medical History: Coronary Artery Disease (CAD), Dementia Medications and Allergies Home Medications Medication Instructions Recorded Confirmed Type Clopidogrel [Plavix] 75 mg PO DAILY #30 tab 02/22/16 09/20/23 Rx Montelukast [Singulair] 10 mg PO HS #30 tab 02/22/16 09/20/23 Rx lisinopriL [Zestril] 2.5 mg PO HS #30 tab 02/22/16 09/20/23 Rx Loratadine [Claritin] 10 mg PO DAILY 09/08/20 09/20/23 History Atorvastatin [Lipitor] 80 mg PO HS 09/20/23 09/20/23 History Gabapentin 600 mg PO TID 09/20/23 09/20/23 History HYDROcodone/APAP 7.5-325MG [[place] 1 tab PO BID PRN 09/20/23 09/20/23 History 7.5-325] Omeprazole [PriLOSEC] 20 mg PO AC-BID 09/20/23 09/20/23 History SILVER sulfADIAZINE Cream 1 applic TOPICAL BID 09/20/23 09/20/23 History [Silvadene 1% Cream] Spironolactone [Aldactone] 25 mg PO DAILY 09/20/23 09/20/23 History Allergies Allergy/AdvReac Type Severity Reaction Status Date / Time No Known Allergies Allergy Verified 09/19/23 15:20 Physical Exam Vitals: Vital Signs Temp Pulse Pulse Resp BP BP Pulse Ox 09/20/23 12:07 97.6 F 110 H 16 168/83 100 09/20/23 08:55 98 F 84 16 137/93 98 09/20/23 06:52 101 H 16 165/92 100 09/20/23 04:00 97 18 169/88 100 09/20/23 03:00 89 16 169/78 100 09/20/23 02:00 91 23 156/90 99 09/20/23 00:29 101 H 15 155/87 98 09/20/23 00:00 95 22 169/85 97 09/19/23 23:00 98 21 163/81 100 09/19/23 22:20 100 14 163/81 95 09/19/23 21:18 98.7 F 99 16 159/80 95 09/19/23 15:18 98 F 79 16 135/65 95 Intake and Output 09/19/23 09/20/23 09/20/23 22:59 06:59 14:59 Intake Total 0 Balance 0 Intake: Blood Product 0 Rc Pheresis 2 As3 Unit 0 [id number] Other: Weight 72.575 kg 72.575 kg PHYSICAL EXAMINATION: VS: As above GENERAL:Patient is alert, sitting up in the bed, no acute distress, awake alert and oriented.. HEENT: Normocephalic, atraumatic. Pupils equal and reactive. MMM. NECK: Supple, no JVD CHEST EXAMINATION: Unlabored, equal air entry, scattered crackles right lung and fine bibasilar crackles. CARDIAC: Normal S1, S2 with no gallops. No murmurs ABDOMEN: Soft. Nondistended, nontender, Bowel sounds normal. No guarding, no rigidity. EXTREMITIES: Left foot warm,dressing clean dry and intact, nonpalpable DP pulse, PSYCHIATRIC: Alert and oriented 3, mood and affect normal NEUROLOGICAL: Cranial nerves II through XII grossly intact ,No focal deficits no ida Skin: No rash, warm and dry. Results CBC & Chem 7: 09/20/23 08:37 09/20/23 08:43 Labs: Abnormal Lab Results - Last 24 Hours (Table) 09/19/23 09/19/23 09/20/23 Range/Units 19:06 19:06 07:35 WBC 12.0 H (3.8-10.6) k/uL RBC 2.88 L (4.30-5.90) m/uL Hgb 7.8 L (13.0-17.5) gm/dL Hct 24.3 L (39.0-53.0) % RDW 16.1 H (11.5-15.5) % Plt Count 463 H (150-450) k/uL Neutrophils # 10.3 H (1.3-7.7) k/uL Lymphocytes # 0.4 L (1.0-4.8) k/uL ESR 38 H (0-20) mm/Hr APTT 70.8 H (22.0-30.0) sec Sodium 126 L (137-145) mmol/L Chloride 93 L (98-107) mmol/L Creatinine 0.49 L (0.66-1.25) mg/dL Glucose (74-99) mg/dL Alkaline Phosphatase 134 H (38-126) U/L C-Reactive Protein 12.5 H (<1.0) mg/dL Crossmatch 09/20/23 09/20/23 09/20/23 Range/Units 08:37 08:37 08:43 WBC 14.8 H (3.8-10.6) k/uL RBC 2.96 L (4.30-5.90) m/uL Hgb 8.0 L (13.0-17.5) gm/dL Hct 26.0 L (39.0-53.0) % RDW 16.1 H (11.5-15.5) % Plt Count 495 H (150-450) k/uL Neutrophils # (1.3-7.7) k/uL Lymphocytes # (1.0-4.8) k/uL ESR (0-20) mm/Hr APTT (22.0-30.0) sec Sodium 132 L (137-145) mmol/L Chloride 96 L (98-107) mmol/L Creatinine 0.44 L (0.66-1.25) mg/dL Glucose 104 H (74-99) mg/dL Alkaline Phosphatase (38-126) U/L C-Reactive Protein (<1.0) mg/dL Crossmatch See Detail Thrombosis Risk Factor Assmnt - Choose All That Apply Each Risk Factor Represents 2 Points: Age 61-74 years Thrombosis Risk Factor Assessment Total Risk Factor Score: 2 Thrombosis Risk Factor Assessment Level: Low Risk Assessment and Plan Assessment: Left great toe,gangrene with subcutaneouos gas, in a patient with history of PAD, follows with the wound care center secondary to chronic left foot wound with prior second and third toe amputation. Acute hypoxic respiratory failure secondary to possible community-acquired bacterial pneumonia. Hyponatremia Chronic Anemia History of GI bleed Abdominal aortic region infrarenal, up to 5.9 cm Right inguinal hernia containing loop of cecum reported per CTA runoff 08/02 New right Kidney exophytic mass medially, 2.3 cm, concerning for renal cell Ca reported per CTA runoff 08/01/23, further workup outpatient. Coronary disease with history of CABG Chronic CHF, EF unknown, echo pending Hypertension Hyperlipidemia Nicotine dependence Daily alcohol use Marijuana use Plan: Continue on current medication regime ,monitoring and symptomatic baudilio tment. Rocephin, azithromycin. Pro-calcitonin ordered. Infectious disease and pulmonary consulted. Echo pending. Evaluated by Vascular, recommendations noted and appreciated, patient is scheduled for left great toe amputation,possible transmetatarsal amputation .heparin drip discontinued .CIWA protocol, nicotine patch ordered. PPI for GI prophylaxis. Smoking cessation and alcohol abstinence reinforced. The impression and plan of care has been dictated as directed. : I performed a history and examination of this patient, discussed the same with the dictator. I agree with the dictator's note ,documented as a scribe. Any additional findings or plans will be noted.
[2023-09-20] MEDS: AMPICILLIN-SULBACTAM 3 GM in SODIUM CHLORIDE 0.9% 100 ML IVPB SCH ×2 (13:43→17:52)
[2023-09-20] MEDS ORDERED: PROPOFOL 10 MG/ML 20 ML VIAL IV ONE (14:09)
[2023-09-20] MEDS ORDERED: IV FLUID CONTINUATION 1,000 ML IV ONE (14:09)
[2023-09-20] MEDS ORDERED: KETAMINE HCL IN 0.9 % NACL 50 MG/5 ML SYRINGE ONE (14:09)
[2023-09-20] MEDS ORDERED: fentaNYL (PF) 50 MCG/ML 2 ML AMP ONE (14:09)
[2023-09-20] MEDS ORDERED: MIDAZOLAM 2 MG/2 ML VIAL ONE (14:09)
[2023-09-20] MEDS ORDERED: DEXAMETHASONE SOD PHOSPHATE 4 MG/ML 1 ML VIAL ONE (14:09)
--- NOTE | 2023-09-20 14:56 | P.OP ---
Date of Procedure: 09/20/23 Description of Procedure: DATE OF SERVICE: 09/20/2023 SURGEON: Jojo Reyna DO VISUAL EFFECTS EDITOR: None PREOPERATIVE DIAGNOSIS: Gas gangrene left great toe, previous second and third toe amputations POSTOPERATIVE DIAGNOSIS: Same OPERATION: Left great toe amputation. Revision of second and third toe amputation ray amputation ANESTHESIA: Sedation ESTIMATED BLOOD LOSS: 25 mL SPECIMENS REMOVED: Left great toe for disposal, deep wound culture COMPLICATIONS: None DESCRIPTION OF PROCEDURE: This patient is a 73-year-old male with evidence of gas gangrene of his left great toe and previous second and third toe amputations with exposed metatarsals at the wound level.. He has peripheral arterial diseas e as well as abdominal aortic aneurysm. He is scheduled to undergo abdominal aortic aneurysm in the near future and followed by subsequent revascularization attempts however he presented to the hospital with gangrene of his great toe that appear to have gas therefore he will be going for debridement today. The patient was brought to the operating room under local IV sedation,a circular incision was made at the base of the proximal phalanx proximal to the level of the eschar, deepened through the skin, fat, and tendons. Tendons were divided prior to plantar and dorsal aspect. On the plantar portion the area of eschar was included in the excision along with the plantar portions of the second and third metatarsals. we took deep culture from the toe. Bone cutters were used to transect the metatarsal of the great toe, further excision of the subcu tissues tissue and transection of the second and third metatarsal heads. After this all gangrenous tissue had been excised. The area was copiously irrigated. Hemostasis was achieved electrocautery. Wet-to-dry Dressing applied. The patient tolerated the procedure well.
[2023-09-20] MEDS ORDERED: FUROSEMIDE 10 MG/ML 4 ML VIAL IVP ONE (15:25)
[2023-09-20] MEDS: HYDROmorphone 0.5 MG/0.5 ML SYRINGE IVP PRN ×2 (16:58→21:49)
[2023-09-20] MEDS: HYDROcodone/APAP 5-325MG 1 EACH TAB PO PRN (19:45)
--- NOTE | 2023-09-20 21:33 | P.CONS ---
History of Present Illness - Reason for Consult Consult date: 09/20/23 Wer gangrene, osteo with gas formation Requesting physician: Eliane Liao - Chief Complaint Left foot wound x weeks - History of Present Illness Patient is a 73-year-old male with a past medical history significant for coronary disease hypertension hyperlipidemia heart failure did have peripheral arterial disease and previous amputation of his left second and third toes patient was sent to the ER from the wound care as the patient was noticed to have discoloration of his left big toe along with a nonhealing wound to the left foot with areas of discoloration patient mention his wound has been getting worse over the last few days patient did have underlying neuropathy denies significant pain mostly pressure-like with associated swelling redness discol oration and did have some drainage but denies any foul-smelling denies high- grade fever did have some chills on presentation to the hospital patient was afebrile he was tachycardic but not hypotensive or hypoxic patient did have a elevated white count 14.8 with a left shift creatinine 0.49 COVID testing was negative patient did have a x-ray of the left foot we did shows evidence of some gas formation and bony changes suspicious for infection for the patient was admitted to hospital patient was evaluated by vascular surgery and planning for surgery this afternoon infectious disease was consulted for further management of antibiotic therapy Review of Systems Positive point and negatives has been mentioned in the HPI, complete review of systems was performed and all other systems are negative Past Medical History Past Medical History: Coronary Artery Disease (CAD), Heart Failure, Hyperlipidemia, Hypertension, Vascular Disorder Additional Past Medical History / Comment(s): aortic aneusrym, herniated disc, peripheral vascular disease History of Any Multi-Drug Resistant Organisms: None Reported Past Surgical History: Appendectomy, Coronary Bypass/CABG, Orthopedic Surgery Additional Past Surgical History / Comment(s): Right rotater cuff repair Past Anesthesia/Blood Transfusion Reactions: No Reported Reaction Past Psychological History: No Psychological Hx Reported Smoking Status: Current some day smoker, Light tobacco smoker Past Alcohol Use History: Daily, Occasional Past Drug Use History: Marijuana - Past Family History Father Family Medical History: Coronary Artery Disease (CAD) Additional Family Medical History / Comment(s): triple bypass Mother Family Medical History: Coronary Artery Disease (CAD), Dementia Medications and Allergies Home Medications Medication Instructions Recorded Confirmed Type Clopidogrel [Plavix] 75 mg PO DAILY #30 tab 02/22/16 10/01/23 Rx Montelukast [Singulair] 10 mg PO HS #30 tab 02/22/16 10/01/23 Rx lisinopriL [Zestril] 2.5 mg PO HS #30 tab 02/22/16 10/01/23 Rx Loratadine [Claritin] 10 mg PO DAILY 09/08/20 10/01/23 History Atorvastatin [Lipitor] 80 mg PO HS 09/20/23 10/01/23 History Omeprazole [PriLOSEC] 20 mg PO AC-BID 09/20/23 10/01/23 History Spironolactone [Aldactone] 25 mg PO DAILY 09/20/23 10/01/23 History Acetaminophen Tab [Tylenol] 650 mg PO Q6HR PRN tab 09/25/23 10/01/23 Rx Aspirin 81 mg PO DAILY tab 09/25/23 10/01/23 Rx Folic Acid 1 mg PO DAILY tab 09/25/23 10/01/23 Rx Furosemide [Lasix] 40 mg PO DAILY #30 tablet 09/25/23 10/01/23 Rx Gabapentin 600 mg PO TID #9 tab 09/25/23 10/01/23 Rx HYDROcodone/APAP 5-325MG [[place] 1 each PO Q6H PRN #12 tab 09/25/23 10/01/23 Rx 5-325] Magnesium Citrate and Oxide 500 mg PO DAILY #30 cap 09/25/23 10/01/23 Rx [Magnesium] Multivitamins, Thera [Multivitamin 1 each PO DAILY tab 09/25/23 10/01/23 Rx (formulary)] Piperacillin-Tazobactam [Zosyn] 3.375 gm IVPB Q8HR #120 each 09/25/23 10/01/23 Rx Thiamine [Vitamin B-1] 100 mg PO DAILY tab 09/25/23 10/01/23 Rx polyethylene glycoL 3350 [Miralax] 17 gm PO DAILY packet 09/25/23 10/01/23 Rx carvediloL [Coreg] 6.25 mg PO BID #60 tablet 09/26/23 10/01/23 Rx Allergies Allergy/AdvReac Type Severity Reaction Status Date / Time No Known Allergies Allergy Verified 10/01/23 13:08 Physical Exam Vitals: Vital Signs Temp Pulse Pulse Resp BP BP Pulse Ox 09/20/23 12:07 97.6 F 110 H 16 168/83 100 09/20/23 08:55 98 F 84 16 137/93 98 09/20/23 06:52 101 H 16 165/92 100 09/20/23 04:00 97 18 169/88 100 09/20/23 03:00 89 16 169/78 100 09/20/23 02:00 91 23 156/90 99 09/20/23 00:29 101 H 15 155/87 98 09/20/23 00:00 95 22 169/85 97 09/19/23 23:00 98 21 163/81 100 09/19/23 22:20 100 14 163/81 95 09/19/23 21:18 98.7 F 99 16 159/80 95 09/19/23 15:18 98 F 79 16 135/65 95 Intake and Output 09/19/23 09/20/23 09/20/23 22:59 06:59 14:59 Intake Total 0 Balance 0 Intake: Blood Product 0 Rc Pheresis 2 As3 Unit 0 [id number] Other: Weight 72.575 kg 72.575 kg GENERAL DESCRIPTION: Elderly male lying in bed, no distress. No tachypnea or accessory muscle of respiration use. HEENT: Shows Pallor , no scleral icterus. Oral mucous membrane is dry. No pharyngeal erythema or thrush NECK: Trachea central, no thyromegaly. LUNGS: Unlabored breathing. Clear to auscultation anteriorly. No wheeze or crackle. HEART: S1, S2, regular rate and rhythm. No loud murmur ABDOMEN: Soft, no tenderness , guarding or rigidity, no organomegaly EXTREMITIES: Left foot second and third toe previous amputation with ischemic changes to the great toe, previous amputation site and plantar aspect of midfoot. With sloughing skin and wound to the dorsal aspect of midfoot. SKIN: No rash, no masses palpable. NEUROLOGICAL: The patient is awake, alert, oriented x3, mood and affect normal. Results CBC & Chem 7: 09/25/23 09:16 09/25/23 16:32 Labs: Abnormal Lab Results - Last 24 Hours (Table) 09/19/23 09/19/23 09/20/23 Range/Units 19:06 19:06 07:35 WBC 12.0 H (3.8-10.6) k/uL RBC 2.88 L (4.30-5.90) m/uL Hgb 7.8 L (13.0-17.5) gm/dL Hct 24.3 L (39.0-53.0) % RDW 16.1 H (11.5-15.5) % Plt Count 463 H (150-450) k/uL Neutrophils # 10.3 H (1.3-7.7) k/uL Lymphocytes # 0.4 L (1.0-4.8) k/uL ESR 38 H (0-20) mm/Hr APTT 70.8 H (22.0-30.0) sec Sodium 126 L (137-145) mmol/L Chloride 93 L (98-107) mmol/L Creatinine 0.49 L (0.66-1.25) mg/dL Glucose (74-99) mg/dL Alkaline Phosphatase 134 H (38-126) U/L C-Reactive Protein 12.5 H (<1.0) mg/dL Crossmatch 09/20/23 09/20/23 09/20/23 Range/Units 08:37 08:37 08:43 WBC 14.8 H (3.8-10.6) k/uL RBC 2.96 L (4.30-5.90) m/uL Hgb 8.0 L (13.0-17.5) gm/dL Hct 26.0 L (39.0-53.0) % RDW 16.1 H (11.5-15.5) % Plt Count 495 H (150-450) k/uL Neutrophils # (1.3-7.7) k/uL Lymphocytes # (1.0-4.8) k/uL ESR (0-20) mm/Hr APTT (22.0-30.0) sec Sodium 132 L (137-145) mmol/L Chloride 96 L (98-107) mmol/L Creatinine 0.44 L (0.66-1.25) mg/dL Glucose 104 H (74-99) mg/dL Alkaline Phosphatase (38-126) U/L C-Reactive Protein (<1.0) mg/dL Crossmatch See Detail Assessment and Plan (1) Gas gangrene Status: Acute Code(s): A48.0 - GAS GANGRENE SNOMED Code(s): 44422086 (2) Ischemic toe Status: Acute Code(s): I99.8 - OTHER DISORDER OF CIRCULATORY SYSTEM SNOMED Code(s): 684017706 (3) Ulcer of right foot with necrosis of bone Status: Acute Code(s): L97.514 - NON-PRS CHRONIC ULCER OTH PRT RIGHT FOOT W NECROSIS OF BONE SNOMED Code(s): 216501634 (4) Wound of left foot Status: Acute Code(s): S91.302A - UNSPECIFIED OPEN WOUND, LEFT FOOT, INITIAL ENCOUNTER SNOMED Code(s): 93378243987184636 Plan: 1patient with a left great toe gangrene in this patient who did have a history of peripheral arterial disease and did have previous amputation of his toes now with a nonhealing wound and discoloration on the left big toe and concerning for secondary cellulitis x-rays were suspicious for gas-forming pathogen 2-blood cultures have been obtained we will request for the local culture at the time of surgery 3-we will empirically add vancomycin pharmacy to dose and Unasyn while waiting for the culture to be finalized We will follow on clinical condition and cultures to further adjust medication if needed Thank you for this consultation we will follow the patient along with you Dictation was produced using [employer] dictation software. please excuse any grammatical, word or spelling errors. Time with Patient: Greater than 30
[2023-09-21] MEDS ORDERED: VANCOMYCIN 1,250 MG in SODIUM CHLORIDE 0.9% 250 ML IVPB SCH ×2
[2023-09-21] MEDS: AMPICILLIN-SULBACTAM 3 GM in SODIUM CHLORIDE 0.9% 100 ML IVPB SCH ×5 (00:37→23:29)
[2023-09-21] MEDS: HYDROcodone/APAP 5-325MG 1 EACH TAB PO PRN ×4 (01:49→23:30)
[2023-09-21] MEDS: VANCOMYCIN 1,500 MG in SODIUM CHLORIDE 0.9% 500 ML 500 ML IVPB SCH ×2 (01:49→17:18)
[2023-09-21 04:37] LABS: Anisocytosis Slight; Basophils % (A) 0 %; Eosinophils % (A) 0 %; HCT 22.7 % (39.0-53.0); HGB 7.2 gm/dL (13.0-17.5); Hypochromasia Moderate; Lymphocytes # (A) 0.2 k/uL (1.0-4.8); Lymphocytes % (A) 1 %; MCH 27.5 pg (25.0-35.0); MCHC 31.9 g/dL (31.0-37.0); MCV 86.3 fL (80.0-100.0); Mean Platelet Volume 6.9; Monocytes # (A) 0.5 k/uL (0-1.0); Monocytes % (A) 4 %; Neutrophils # (A) 13.3 k/uL (1.3-7.7); Neutrophils % (A) 94 %; Platelet Count 366 k/uL (150-450); Poikilocytosis Slight; RBC 2.63 m/uL (4.30-5.90); RDW 16.1 % (11.5-15.5); WBC 14.2 k/uL (3.8-10.6)
[2023-09-21 04:56] LABS: ALT 15 U/L (4-49); AST 18 U/L (17-59); African American GFR (CKD) >90 (>60 ml/min/1.73 sqM); Albumin 2.7 g/dL (3.5-5.0); Alkaline Phosphatase 104 U/L (38-126); Anion Gap 6 mmol/L; Blood Urea Nitrogen 12 mg/dL (9-20); Calcium 8.3 mg/dL (8.4-10.2); Carbon Dioxide 27 mmol/L (22-30); Chloride 97 mmol/L (98-107); Glucose 96 mg/dL (74-99); Non-African American GFR(CKD) >90 (>60 ml/min/1.73 sqM); Sodium 130 mmol/L (137-145); Total Bilirubin 0.4 mg/dL (0.2-1.3); Total Protein 5.2 g/dL (6.3-8.2)
[2023-09-21 05:07] LABS: C Reactive Protein 13.6 mg/dL (<1.0)
[2023-09-21] MEDS: SODIUM CHLORIDE 0.9% 1,000 ML IV SCH ×2 (06:24→18:06)
[2023-09-21] MEDS: IPRATROPIUM-ALBUTEROL 3 ML NEB INHALATION SCH ×4 (08:37→19:46)
[2023-09-21] MEDS: HYDROmorphone 0.5 MG/0.5 ML SYRINGE IVP PRN (09:17)
[2023-09-21] MEDS: MULTIVITAMINS, THERA 1 EACH TAB PO SCH (09:18)
[2023-09-21] MEDS: THIAMINE 100 MG TAB PO SCH (09:18)
[2023-09-21] MEDS: FOLIC ACID 1 MG TAB PO SCH (09:18)
[2023-09-21] MEDS: PANTOPRAZOLE 40 MG/10 ML VIAL IVP SCH (09:18)
[2023-09-21] MEDS: NICOTINE 21MG/24HR PATCH TRANSDERM SCH (09:38)
--- NOTE | 2023-09-21 11:10 | CA ---
Transthoracic Echo Report Name: Temo Garcia Age: 73 Gender: M : 1950 Exam Date: 09/21/2023 09:23 Exam Location: [facility] Ht (in): 68 Wt (lb): 160 Ordering Physician: Sandra Beckham Attending/Referring Phys: Director Insurance Shekhar Pearson Procedure CPT: Indications: New-onset hypoxia, LV FX Cardiac Hx: Technical Quality: Technically difficult study Contrast 1: Definity Total Dose (mL): 2 Contrast 2: Total Dose (mL): MEASUREMENTS (Male / Female) Normal Values 2D ECHO LV Diastolic Diameter PLAX 4.5 cm 4.2 - 5.9 / 3.9 - 5.3 cm LV Systolic Diameter PLAX 3.2 cm IVS Diastolic Thickness 1.0 cm 0.6 - 1.0 / 0.6 - 0.9 cm LVPW Diastolic Thickness 0.9 cm 0.6 - 1.0 / 0.6 - 0.9 cm LV Relative Wall Thickness 0.4 RV Internal Dim ED PLAX 3.3 cm LVOT Diameter 1.8 cm Aortic Root Diameter 2.5 cm LA Systolic Diameter LX 3.2 cm 3.0 - 4.0 / 2.7 - 3.8 cm LV Diastolic Volume MOD BP 75.7 cm??? 67 - 155 / 56 - 104 cm??? LV Systolic Volume MOD BP 45.9 cm??? 22 - 58 / 19 - 49 cm??? LV Ejection Fraction MOD BP 39.5 % >= 55 % LV Cardiac Index MOD BP 1548.0 cm???/min???m??? LV Diastolic Volume MOD 4C 79.2 cm??? LV Systolic Volume MOD 4C 46.4 cm??? LV Ejection Fraction MOD 4C 41.3 % LV Cardiac Index MOD 4C 1694.6 cm???/min???m??? LV Diastolic Length 4C 7.6 cm LV Systolic Length 4C 6.8 cm LV Diastolic Volume MOD 2C 72.2 cm??? LV Systolic Volume MOD 2C 44.2 cm??? LV Ejection Fraction MOD 2C 38.8 % LV Cardiac Index MOD 2C 1450.8 cm???/min???m??? LV Diastolic Length 2C 7.9 cm LV Systolic Length 2C 7.2 cm DOPPLER AV Peak Velocity 255.2 cm/s AV Peak Gradient 26.1 mmHg AV Mean Velocity 199.3 cm/s AV Mean Gradient 17.2 mmHg AV Velocity Time Integral 55.2 cm AI Peak Velocity 259.2 cm/s AI Peak Gradient 26.9 mmHg AI Pressure Half Time 578.4 ms LVOT Peak Velocity 93.6 cm/s LVOT Peak Gradient 3.5 mmHg LVOT Velocity Time Integral 23.0 cm LVOT Stroke Volume 57.0 cm??? LVOT Stroke Volume Index 30.7 ml/m??? LVOT Cardiac Index 2951.9 cm???/min???m??? AV Area Cont Eq vti 1.0 cm??? AV Area Cont Eq pk 0.9 cm??? MV Peak Velocity 146.2 cm/s MV Peak Gradient 8.5 mmHg MV Mean Velocity 79.6 cm/s MV Mean Gradient 3.4 mmHg MV Velocity Time Integral 38.3 cm MR Peak Velocity 278.0 cm/s MR Peak Gradient 30.9 mmHg Mitral E Point Velocity 118.0 cm/s Mitral A Point Velocity 108.9 cm/s Mitral E to A Ratio 1.1 MV Deceleration Time 242.0 ms MV E' Velocity 5.2 cm/s Mitral E to MV E' Ratio 22.7 TR Peak Velocity 193.0 cm/s TR Peak Gradient 14.9 mmHg Right Ventricular Systolic Press 20.7 mmHg PV Peak Velocity 131.0 cm/s PV Peak Gradient 6.9 mmHg FINDINGS Left Ventricle Normal LV size and wall thckness.left ventricular ejection fraction is estimated at 35-40 %. Right Ventricle Normal right ventricular size. RVSP= 28mmHg. Right Atrium Normal right atrial size. Left Atrium Normal left atrial size. Mitral Valve Mild MV calcification. Mild MR. Aortic Valve Aortic valve not well visualized. There appears to be at least moderate calcification. AV peak gradient= 26mmHg. Mean gradient= 17mmHg. Mild AI. Tricuspid Valve Structurally normal tricuspid valve. Trace TR. Pulmonic Valve Pulmonic valve not well visualized. No pulmonic regurgitation. Pericardium Not well visualized however grossly normal. Aorta Normal size aortic root . CONCLUSIONS Moderate to severe LV dysfunction with an ejection fraction of 35% Basal inferior wall appears akinetic Handy-septum is hypokinetic Mild mitral regurgitation Mild aortic stenosis Previewed by: Dr. Km Rebollar MD (Electronically Signed) Final Date: 21 September 2023 11:09
--- NOTE | 2023-09-21 11:44 | P.PN ---
Subjective Progress Note Date: 09/21/23 Principal diagnosis: Gas gangrene left great toe Patient is seen and examined today as a follow-up. He is postop day #1 for left great toe amputation and second and third toe amputation revision. States he is having pain at the surgical site. He otherwise has no complaints. Risks of breath improved. Patient overall looks better today. Dressing is currently in place clean dry and intact. He is afebrile. Blood cultures are currently pending. Deep tissue cultures are currently pending. Objective - Vital Signs Vital signs: Vital Signs Temp 98.3 F 09/21/23 07:00 Pulse 84 09/21/23 07:00 Resp 16 09/21/23 07:00 BP 106/56 09/21/23 07:00 Pulse Ox 96 09/21/23 08:38 FiO2 Intake & Output 09/20/23 09/21/23 09/21/23 18:59 06:59 18:59 Intake Total 1135 Output Total 525 2500 Balance 610 -2500 Weight 72.575 kg Intake: IV 850 Blood Product 285 Rc Pheresis 2 As3 Unit 285 [id number] Output: Urine 500 2500 Estimated Blood Loss 25 Other: Voiding Method Indwelling Catheter - Exam General appearance: The patient is alert, oriented, appears in no acute distress . HET: Head is normocephalic and atraumatic. Pupils are equal and reactive. Neck: Supple. Heart: Regular. Lungs: Equal expansion, normal respiratory effort. Diminished bilaterally. Abdomen: Soft, nontender, nondistended. Extremities: Left foot with dressing clean dry and intact. Neurological: No focal deficits. Strength and sensation are grossly intact. - Labs CBC & Chem 7: 09/21/23 03:54 09/21/23 03:54 Labs: Abnormal Lab Results - Last 24 Hours (Table) 09/20/23 09/21/23 09/21/23 Range/Units 08:37 03:54 03:54 WBC 14.2 H (3.8-10.6) k/uL RBC 2.63 L (4.30-5.90) m/uL Hgb 7.2 L (13.0-17.5) gm/dL Hct 22.7 L (39.0-53.0) % RDW 16.1 H (11.5-15.5) % Neutrophils # 13.3 H (1.3-7.7) k/uL Lymphocytes # 0.2 L (1.0-4.8) k/uL Sodium 130 L (137-145) mmol/L Chloride 97 L (98-107) mmol/L Creatinine 0.47 L (0.66-1.25) mg/dL Calcium 8.3 L (8.4-10.2) mg/dL C-Reactive Protein 13.6 H (<1.0) mg/dL Total Protein 5.2 L (6.3-8.2) g/dL Albumin 2.7 L (3.5-5.0) g/dL Crossmatch See Detail Microbiology - Last 24 Hours (Table) 09/19/23 21:37 Blood Culture - Preliminary Blood Assessment and Plan Assessment: 1. Wet gangrene left great toe with subcutaneous gas status post amputation 2. Peripheral arterial disease 3. Shortness of breath, cough 4. Previous second and third toe amputation 5. Chronic wound to left foot 6. Abdominal aortic aneurysm 7. Coronary artery disease status post CABG 8. Anemia 9. History of GI bleed 10. Hypertension 11. Alcohol abuse 12. Nicotine dependence Plan: 1. Patient is status post left great toe amputation 2. Hold off on dressing change until 09/22/2023. Then change daily with a dry dressing and Kerlix. 3. Daily CBC 5. Infectious disease consulted, appreciate their recommendations for antibiotics 6. Discussed with patient importance of smoking cessation and alcohol abstinence 7. As of Now plan will be to do abdominal aortic repair and endograft as scheduled October 05 to allow infection to clear 8. The rest of medical management per primary medical team Thank you for this consultation, we will continue to follow. The impression and plan of care has been dictated as directed. Dr. Padilla I performed a history and examination of this patient, discussed the same with the dictator. I agree with the dictator's note ,documented as a scribe. Any additional findings or plans will be noted.
--- NOTE | 2023-09-21 12:22 | P.PN ---
Subjective Progress Note Date: 09/21/23 Principal diagnosis: Reason for follow-up is left big toe gas gangrene and left foot cellulitis Patient is a 73-year-old male with a past medical history significant for coronary disease hypertension hyperlipidemia heart failure did have peripheral arterial disease and previous amputation of left second and third toe presented to hospital with gas gangrene of his left big toe in this patient was status post amputation of the left big toe and revision of the second and third toe ray amputation. On today's evaluation that is 09/21/2023, the patient denies having any fever or any chills patient is breathing comfortably on 2 L nasal cannula oxygen denies any chest pain or shortness of he did have some congestion but not coughing up any sputum no abdominal pain still complaining of pain to the left foot though controlled with the pain medication no abdominal pain or diarrhea. Patient did have white count of 14.2 creatinine is 0.47 cultures currently pending Objective - Vital Signs Vital signs: Vital Signs Temp 98.3 F 09/21/23 07:00 Pulse 84 09/21/23 07:00 Resp 16 09/21/23 07:00 BP 106/56 09/21/23 07:00 Pulse Ox 96 09/21/23 08:38 FiO2 Intake & Output 09/20/23 09/21/23 09/21/23 18:59 06:59 18:59 Intake Total 1135 Output Total 525 2500 Balance 610 -2500 Weight 72.575 kg Intake: IV 850 Blood Product 285 Rc Pheresis 2 As3 Unit 285 [id number] Output: Urine 500 2500 Estimated Blood Loss 25 Other: Voiding Method Indwelling Catheter - Exam GENERAL DESCRIPTION: An elderly male lying in bed in no distress RESPIRATORY SYSTEM: Unlabored breathing , decreased breath sounds at bases HEART: S1 S2 regular rate and rhythm , ABDOMEN: Soft , no tenderness EXTREMITIES: Left foot is currently dressed no drainage on the dressing - Labs CBC & Chem 7: 09/21/23 03:54 09/21/23 03:54 Labs: Abnormal Lab Results - Last 24 Hours (Table) 09/20/23 09/21/23 09/21/23 Range/Units 08:37 03:54 03:54 WBC 14.2 H (3.8-10.6) k/uL RBC 2.63 L (4.30-5.90) m/uL Hgb 7.2 L (13.0-17.5) gm/dL Hct 22.7 L (39.0-53.0) % RDW 16.1 H (11.5-15.5) % Neutrophils # 13.3 H (1.3-7.7) k/uL Lymphocytes # 0.2 L (1.0-4.8) k/uL Sodium 130 L (137-145) mmol/L Chloride 97 L (98-107) mmol/L Creatinine 0.47 L (0.66-1.25) mg/dL Calcium 8.3 L (8.4-10.2) mg/dL C-Reactive Protein 13.6 H (<1.0) mg/dL Total Protein 5.2 L (6.3-8.2) g/dL Albumin 2.7 L (3.5-5.0) g/dL Crossmatch See Detail Microbiology - Last 24 Hours (Table) 09/19/23 21:37 Blood Culture - Preliminary Blood Assessment and Plan (1) Gas gangrene Current Visit: Yes Status: Acute Code(s): A48.0 - GAS GANGRENE SNOMED Code(s): 38817202 (2) Wound of left foot Current Visit: Yes Status: Acute Code(s): S91.302A - UNSPECIFIED OPEN WOUND, LEFT FOOT, INITIAL ENCOUNTER SNOMED Code(s): 71594052574338909 (3) Ischemic toe Current Visit: Yes Status: Acute Code(s): I99.8 - OTHER DISORDER OF CIRCULATORY SYSTEM SNOMED Code(s): 938481443 Plan: 1patient with a left great toe gangrene in this patient who did have a history of peripheral arterial disease and did have previous amputation of his toes now with a nonhealing wound and discoloration on the left big toe and concerning for secondary cellulitis x-rays were suspicious for gas-forming pathogen 2-blood cultures have been obtained as well as local culture at the time of surgery, which are currently pending 3-patient to continue with vancomycin pharmacy to dose and Unasyn while waiting for the culture to be finalized Dictation was produced using p[employer] dictation software. please excuse any grammatical, word or spelling errors.
[2023-09-21] MEDS: guaiFENesin 600 MG TABLET.ER PO SCH ×2 (14:50→21:18)
--- NOTE | 2023-09-21 17:54 | P.PN ---
Subjective Progress Note Date: 09/21/23 H&P Date: 09/20/23 Chief Complaint: Worsening left foot wounds This is a 73-year-old gentleman with past medical history significant for chronic left foot wound, left foot second and third toe amputations,follows with [facility], PAD, infrarenal AAA, CAD, CABG, GI bleed, anemia, herniated disc, hypertension, hyperlipidemia, nicotine dependence, daily alcohol use-reports 2X 12 ounce beers daily, and multiple other medical issues reports he was directed by the wound care center to proceed to the ER related to increased wound drainage. Patient missed his wound care appointment on Sunday, phoned into the wound care center to report worsening appearance, drainage, pain of his left foot/great toe. Complains of new onset of shortness of breath, congested cough. Denies chest pain, palpitations. Denies fever,chills or sweats. Denies body aches. Patient is a vague historian. Chest x-ray reported - correlate for COPD with superimposed CHF and pulmonary vascular congestion along with trace effusions, atypical pneumonia would be alternative consideration. Recent CTA abdomen aorta with runoff completed on 08/02 reported: New right kidney exophytic mass medially measuring up to 2.3 cm concerning for renal cell carcinoma. No evidence of lymph adenopathy.Occlusion of the left super fascial femoral artery with reconstitution near the vessels of the legs with 2 vessels crossing the ankle and the left.Severe arthrosclerosis of the right SFA with multiple areas of occlusion with reconstitution at the popliteal artery and with at least one vessel posterior tibial artery crossing the ankle. The anterior tibial artery on the right appears occluded. Infrarenal abdominal aorta fusiform dilation up to 5.9 cm. (Patient is scheduled for endograft on 10/05/[address]illa[address] Right inguinal hernia containing loop of cecum. Colonic diverticulosis. Left toe x-ray reported subcutaneous gas with possible early osteophyte involving the first digit proximal phalanx and metatarsal head. Postsurgical changes to the second and third digit without definitive osteomyelitis.Afebrile, WBC 14.8, hemoglobin 8, platelets 495, MCV 87.8. Sodium 132, potassium 4.4, bicarb 24, BUN 9, creatinine 0.44, glucose 104, lactic acid 1, alk phos 134, CRP 12.5. Maintaining O2 sats above 90% on 3 L nasal cannula. Covid testing in progress. Anticoagulation with heparin drip initiated in the ER. 09/21/2023 Respiratory status significantly improved. Denies chest pain, palpitations or shortness of breath, maintaining O2 sats of high 90s on 2 L nasal cannula. Reports minimal productive cough. Maintained on Unasyn and vancomycin . Blood and wound/deep Cultures pending .status post left great toe amputation with second and third toe amputation revision. Tolerated procedure well. Reports surgical pain site. Afebrile, WBC 14.2, Hemoglobin 7.2, platelets 366, sodium 1:30, BUN 12, creatinine 0.47. C-reactive protein 13.6, pro calcitonin 0.04. Covid not detected. Echo completed, report pending. Objective - Vital Signs Vital signs: Vital Signs Temp 98.3 F 09/21/23 07:00 Pulse 84 09/21/23 07:00 Resp 16 09/21/23 07:00 BP 106/56 09/21/23 07:00 Pulse Ox 97 09/21/23 15:26 FiO2 Intake & Output 09/20/23 09/21/23 09/21/23 18:59 06:59 18:59 Intake Total 1135 Output Total 525 2500 Balance 610 -2500 Weight 72.575 kg Intake: IV 850 Blood Product 285 Rc Pheresis 2 As3 Unit 285 [id number] Output: Urine 500 2500 Estimated Blood Loss 25 Other: Voiding Method Indwelling Catheter - Exam PHYSICAL EXAMINATION: VS: As above GENERAL: Alert and oriented 3, Patient is alert, sitting up at side of bed, no acute distress, awake alert and oriented.. HEENT: Normocephalic, atraumatic. Pupils equal and reactive. MMM. NECK: Supple, no JVD CHEST EXAMINATION: Unlabored, equal air entry, fine right bibasilar crackles. CARDIAC: Normal S1, S2 with no gallops. No murmurs ABDOMEN: Soft. Nondistended, nontender, Bowel sounds normal. No guarding, no rigidity. EXTREMITIES: Left foot warm,dressing clean dry and intact NEUROLOGICAL: Cranial nerves II through XII grossly intact ,No focal deficits noted Skin: No rash, warm and dry. - Labs CBC & Chem 7: 09/21/23 03:54 09/21/23 03:54 Labs: Abnormal Lab Results - Last 24 Hours (Table) 09/21/23 09/21/23 Range/Units 03:54 03:54 WBC 14.2 H (3.8-10.6) k/uL RBC 2.63 L (4.30-5.90) m/uL Hgb 7.2 L (13.0-17.5) gm/dL Hct 22.7 L (39.0-53.0) % RDW 16.1 H (11.5-15.5) % Neutrophils # 13.3 H (1.3-7.7) k/uL Lymphocytes # 0.2 L (1.0-4.8) k/uL Sodium 130 L (137-145) mmol/L Chloride 97 L (98-107) mmol/L Creatinine 0.47 L (0.66-1.25) mg/dL Calcium 8.3 L (8.4-10.2) mg/dL C-Reactive Protein 13.6 H (<1.0) mg/dL Total Protein 5.2 L (6.3-8.2) g/dL Albumin 2.7 L (3.5-5.0) g/dL Microbiology - Last 24 Hours (Table) 09/19/23 21:37 Blood Culture - Preliminary Blood Assessment and Plan Assessment: Left great toe,wet gangrene with subcutaneouos gas, in a patient with history of PAD, follows with the wound care center secondary to chronic left foot wound w ith prior second and third toe amputation. Status post left great toe amputation. Acute hypoxic respiratory failure secondary to possible community-acquired bacterial pneumonia. Hyponatremia Chronic Anemia History of GI bleed Abdominal aortic region infrarenal, up to 5.9 cm Right inguinal hernia containing loop of cecum reported per CTA runoff 08/02 New right Kidney exophytic mass medially, 2.3 cm, concerning for renal cell Ca reported per CTA runoff 08/01/23, further workup outpatient. Coronary disease with history of CABG Chronic CHF, EF unknown, echo pending Hypertension Hyperlipidemia Nicotine dependence Daily alcohol use Marijuana use Plan: Continue on current medication regime ,monitoring and symptomatic treatment. Echo pending.cultures pending .antibiotics as per Infectious di [facility] protocol, Smoking cessation and alcohol abstinence reinforced.scheduled for abdominal aortic repair/ endograft as scheduled October 05, after clearance of infection. The impression and plan of care has been dictated as directed. : I performed a history and examination of this patient, discussed the same with the dictator. I agree with the dictator's note ,documented as a scribe. Any additional findings or plans will be noted.
[2023-09-22] MEDS: VANCOMYCIN 1,500 MG in SODIUM CHLORIDE 0.9% 500 ML 500 ML IVPB SCH ×2 (00:14→14:11)
[2023-09-22] MEDS: HYDROcodone/APAP 5-325MG 1 EACH TAB PO PRN ×5 (03:30→23:29)
[2023-09-22] MEDS: SODIUM CHLORIDE 0.9% 1,000 ML IV SCH ×2 (05:37→19:25)
[2023-09-22] MEDS: AMPICILLIN-SULBACTAM 3 GM in SODIUM CHLORIDE 0.9% 100 ML IVPB SCH ×4 (05:37→23:28)
[2023-09-22] MEDS: IPRATROPIUM-ALBUTEROL 3 ML NEB INHALATION SCH ×4 (07:40→18:03)
[2023-09-22 08:07] LABS: African American GFR (CKD) >90 (>60 ml/min/1.73 sqM); Anion Gap 10 mmol/L; Blood Urea Nitrogen 12 mg/dL (9-20); Calcium 8.7 mg/dL (8.4-10.2); Carbon Dioxide 25 mmol/L (22-30); Chloride 102 mmol/L (98-107); Glucose 84 mg/dL (74-99); Magnesium 1.8 mg/dL (1.6-2.3); Non-African American GFR(CKD) >90 (>60 ml/min/1.73 sqM); Potassium 3.9 mmol/L (3.5-5.1); Sodium 137 mmol/L (137-145)
[2023-09-22 08:44] LABS: Anisocytosis Slight; Basophils % (A) 0 %; Eosinophils # (A) 0.1 k/uL (0-0.7); Eosinophils % (A) 1 %; HCT 24.5 % (39.0-53.0); HGB 7.9 gm/dL (13.0-17.5); Hypochromasia Marked; Lymphocytes # (A) 0.4 k/uL (1.0-4.8); Lymphocytes % (A) 4 %; MCH 27.4 pg (25.0-35.0); MCHC 32.1 g/dL (31.0-37.0); MCV 85.5 fL (80.0-100.0); Mean Platelet Volume 8.1; Monocytes % (A) 8 %; Neutrophils # (A) 9.9 k/uL (1.3-7.7); Neutrophils % (A) 83 %; Platelet Count 335 k/uL (150-450); Poikilocytosis Moderate; RBC 2.87 m/uL (4.30-5.90)
[2023-09-22] MEDS: PANTOPRAZOLE 40 MG/10 ML VIAL IVP SCH (08:55)
[2023-09-22] MEDS: MULTIVITAMINS, THERA 1 EACH TAB PO SCH (08:55)
[2023-09-22] MEDS: THIAMINE 100 MG TAB PO SCH (08:55)
[2023-09-22] MEDS: guaiFENesin 600 MG TABLET.ER PO SCH ×2 (08:55→20:01)
[2023-09-22] MEDS: NICOTINE 21MG/24HR PATCH TRANSDERM SCH (08:55)
[2023-09-22] MEDS: FOLIC ACID 1 MG TAB PO SCH (08:55)
[2023-09-22] MEDS ORDERED: VANCOMYCIN TROUGH DUE 1 EACH MISC MISCELLANE ONE (11:00)
--- NOTE | 2023-09-22 12:22 | P.PN ---
Subjective Progress Note Date: 09/22/23 Principal diagnosis: Reason for follow-up is left big toe gas gangrene and left foot cellulitis Patient is a 73-year-old male with a past medical history significant for coronary disease hypertension hyperlipidemia heart failure did have peripheral arterial disease and previous amputation of left second and third toe presented to hospital with gas gangrene of his left big toe in this patient was status post amputation of the left big toe and revision of the second and third toe ray amputation. On today's evaluation that is 09/22/2023, the patient remains to be afebrile, patient is breathing comfortably on 2 L nasal cannula oxygen, the patient denies any chest pain or shortness of breath, the patient did have some congestion but not coughing up any sputum no abdominal pain, pain to the left foot controlled with the pain medication and denies having any diarrhea. Patient did have white count is down to 12.0 creatinine is 0.43, cultures currently pending Objective - Vital Signs Vital signs: Vital Signs Temp 98.2 F 09/22/23 07:00 Pulse 95 09/22/23 07:00 Resp 17 09/22/23 07:00 BP 164/81 09/22/23 07:00 Pulse Ox 97 09/22/23 07:00 FiO2 Intake & Output 09/21/23 09/22/23 09/22/23 18:59 06:59 18:59 Intake Total 2200 Output Total 300 1200 Balance -300 1000 Intake: Intake, IV Titration 1600 Amount Ampicillin-Sulbactam 3 gm 200 In Sodium Chloride 0.9% 100 ml @ 200 mls/hr IVPB Q6HR [facility] Rx#:[id number] Sodium Chloride 0.9% 1, 900 000 ml @ 75 mls/hr IV . [id number] [facility] Rx#:[id number] Vancomycin 1,500 mg In 500 Sodium Chloride 0.9% 500 ml 500 ml @ 167 mls/hr IVPB Q12H [facility] Rx#: [id number] Oral 600 Output: Urine 300 1200 Other: Voiding Method Urinal Bedside Commode Urinal - Exam GENERAL DESCRIPTION: An elderly male lying in bed in no distress RESPIRATORY SYSTEM: Unlabored breathing , decreased breath sounds at bases HEART: S1 S2 regular rate and rhythm , ABDOMEN: Soft , no tenderness EXTREMITIES: Left foot is currently dressed no drainage on the dressing - Labs CBC & Chem 7: 09/22/23 06:50 09/22/23 06:50 Labs: Abnormal Lab Results - Last 24 Hours (Table) 09/22/23 09/22/23 Range/Units 06:50 06:50 WBC 12.0 H (3.8-10.6) k/uL RBC 2.87 L (4.30-5.90) m/uL Hgb 7.9 L (13.0-17.5) gm/dL Hct 24.5 L (39.0-53.0) % RDW 16.0 H (11.5-15.5) % Neutrophils # 9.9 H (1.3-7.7) k/uL Lymphocytes # 0.4 L (1.0-4.8) k/uL Creatinine 0.43 L (0.66-1.25) mg/dL Microbiology - Last 24 Hours (Table) 09/19/23 21:37 Blood Culture - Preliminary Blood 09/20/23 14:24 Gram Stain - Preliminary Toe - Left First Assessment and Plan (1) Gas gangrene Current Visit: Yes Status: Acute Code(s): A48.0 - GAS GANGRENE SNOMED Code(s): 88770076 (2) Ischemic toe Current Visit: Yes Status: Acute Code(s): I99.8 - OTHER DISORDER OF CIRCULATORY SYSTEM SNOMED Code(s): 584226985 (3) Wound of left foot Current Visit: Yes Status: Acute Code(s): S91.302A - UNSPECIFIED OPEN WOUND, LEFT FOOT, INITIAL ENCOUNTER SNOMED Code(s): 49489115834831536 Plan: 1patient with a left great toe gangrene in this patient who did have a history of peripheral arterial disease and did have previous amputation of his toes now with a nonhealing wound and discoloration on the left big toe and concerning for secondary cellulitis x-rays were suspicious for gas-forming pathogen 2-blood cultures have been obtained and local culture are currently pending 3-patient to continue with vancomycin pharmacy to dose and Unasyn while waiting for the culture to be finalized and monitor clinical course closely We will follow on clinical condition and cultures to further adjust medication if needed Thank you for this consultation we will follow the patient along with you Dictation was produced using [employer] software. please excuse any gra mmatical, word or spelling errors. Time with Patient: Less than 30
--- NOTE | 2023-09-22 12:47 | PN ---
PROGRESS NOTE DATE OF SERVICE: 09/22/2023 SUBJECTIVE: I am covering for Dr. Lisa today. This is a 73-year-old gentleman who was admitted to the left great toe wet gangrene and multiple complications including bacterial pneumonia, acute hypoxic respiratory failure, is being closely monitored. The patient on IV antibiotics currently, white count is still elevated, hemoglobin is 7.9. COVID- 19 is negative. There is no history of any fever, rigors, or chills. PAST MEDICAL HISTORY: Reviewed. REVIEW OF SYSTEMS: A 14-point review is negative except as mentioned earlier. CURRENT MEDICATIONS: Reviewed include DuoNeb, rest of medications and rest of the chart is also reviewed. PHYSICAL EXAMINATION: VITAL SIGNS: Pulse 95, blood pressure 160/82, respirations 17. CHEST: Clear to auscultation. CARDIOVASCULAR: S1, S2. ABDOMEN: Soft. NERVOUS SYSTEM: Nonfocal. LABORATORY DATA: WBC 12, hemoglobin 7.9, rest of the labs are noted. ASSESSMENT: 1. Left great toe wet gangrene with subcutaneous gas. 2. Acute hypoxic respiratory secondary to community-acquired pneumonia, bacterial. 3. Hyponatremia. 4. Chronic anemia. 5. History of GI bleed. 6. Abdomen aortic aneurysm. 7. Right inguinal hernia. 8. History of chronic CHF, ejection fraction unknown. 9. Hypertension. 10.Hyperlipidemia. 11.History of alcohol. 12.History of THC. 13.Status post great toe amputation. RECOMMENDATIONS: Recommended to continue current medications, continue symptomatic treatment. Otherwise, repeat labs. Continue with broad-spectrum IV antibiotics. Follow closely with multiple consultants. The patient underwent surgery and closely follow with multiple consultants for that. The patient is on IV Unasyn at this time. MMODL / IJN: [id number] /
[2023-09-22 14:44] LABS: African American GFR (CKD) >90 (>60 ml/min/1.73 sqM); Non-African American GFR(CKD) >90 (>60 ml/min/1.73 sqM)
--- NOTE | 2023-09-22 15:44 | P.PN ---
Subjective Progress Note Date: 09/22/23 Patient seen and examined. No complaints. Some pain at the surgical site in his foot different than previous. Dressing was saturated. Objective - Vital Signs Vital signs: Vital Signs Temp 98.2 F 09/22/23 13:10 Pulse 88 09/22/23 14:17 Resp 17 09/22/23 13:10 BP 159/75 09/22/23 13:10 Pulse Ox 100 09/22/23 13:10 FiO2 Intake & Output 09/21/23 09/22/23 09/22/23 18:59 06:59 18:59 Intake Total 2200 Output Total 300 1200 Balance -300 1000 Intake: Intake, IV Titration 1600 Amount Ampicillin-Sulbactam 3 gm 200 In Sodium Chloride 0.9% 100 ml @ 200 mls/hr IVPB Q6HR [facility] Rx#:[id number] Sodium Chloride 0.9% 1, 900 000 ml @ 75 mls/hr IV . [id number] [facility] Rx#:[id number] Vancomycin 1,500 mg In 500 Sodium Chloride 0.9% 500 ml 500 ml @ 167 mls/hr IVPB Q12H [facility] Rx#: [id number] Oral 600 Output: Urine 300 1200 Other: Voiding Method Urinal Bedside Commode Urinal - Exam General appearance: The patient is alert, oriented, appears in no acute distress. HET: Head is normocephalic and atraumatic. Pupils are equal and reactive. Neck: Supple. Heart: Regular. Lungs: Equal expansion, normal respiratory effort. Diminished bilaterally. Abdomen: Soft, nontender, nondistended. Extremities: Left foot with dressing saturated. Removed. No obvious bleeding. Wound bed appears with good granulation tissue. No further eschar. No drainage Neurological: No focal deficits. Strength and sensation are grossly intact. - Labs CBC & Chem 7: 09/22/23 06:50 09/22/23 11:00 Labs: Abnormal Lab Results - Last 24 Hours (Table) 09/22/23 09/22/23 09/22/23 Range/Units 06:50 06:50 11:00 WBC 12.0 H (3.8-10.6) k/uL RBC 2.87 L (4.30-5.90) m/uL Hgb 7.9 L (13.0-17.5) gm/dL Hct 24.5 L (39.0-53.0) % RDW 16.0 H (11.5-15.5) % Neutrophils # 9.9 H (1.3-7.7) k/uL Lymphocytes # 0.4 L (1.0-4.8) k/uL Creatinine 0.43 L 0.49 L (0.66-1.25) mg/dL Microbiology - Last 24 Hours (Table) 09/19/23 21:37 Blood Culture - Preliminary Blood 09/20/23 14:24 Gram Stain - Preliminary Toe - Left First Assessment and Plan Assessment: 1. Wet gangrene left great toe with subcutaneous gas status post amputation 2. Peripheral arterial disease 3. Shortness of breath, cough 4. Previous second and third toe amputation 5. Chronic wound to left foot 6. Abdominal aortic aneurysm 7. Coronary artery disease status post CABG 8. Anemia 9. History of GI bleed 10. Hypertension 11. Alcohol abuse 12. Nicotine dependence Plan: Continue local wound care. Change dressings daily. Continue monitoring, discuss again the importance of smoking cessation. Hopeful for discharge, surgically cleared from a vascular standpoint. We will continue with plan for outpatient abdominal aortic aneurysm repair and subsequent revascularization
[2023-09-23] MEDS: VANCOMYCIN 1,500 MG in SODIUM CHLORIDE 0.9% 500 ML 500 ML IVPB SCH ×2 (00:16→12:53)
[2023-09-23] MEDS: AMPICILLIN-SULBACTAM 3 GM in SODIUM CHLORIDE 0.9% 100 ML IVPB SCH ×3 (05:10→17:46)
[2023-09-23] MEDS: HYDROcodone/APAP 5-325MG 1 EACH TAB PO PRN ×4 (05:15→22:14)
[2023-09-23] MEDS: IPRATROPIUM-ALBUTEROL 3 ML NEB INHALATION SCH ×4 (07:45→18:00)
[2023-09-23] MEDS: NICOTINE 21MG/24HR PATCH TRANSDERM SCH (08:17)
[2023-09-23] MEDS: guaiFENesin 600 MG TABLET.ER PO SCH ×2 (08:18→20:15)
[2023-09-23] MEDS: THIAMINE 100 MG TAB PO SCH (08:18)
[2023-09-23] MEDS: PANTOPRAZOLE 40 MG/10 ML VIAL IVP SCH (08:18)
[2023-09-23] MEDS: MULTIVITAMINS, THERA 1 EACH TAB PO SCH (08:18)
[2023-09-23] MEDS: FOLIC ACID 1 MG TAB PO SCH (08:18)
[2023-09-23] MEDS: SODIUM CHLORIDE 0.9% 1,000 ML IV SCH (08:19)
[2023-09-23] MEDS ORDERED: FUROSEMIDE 10 MG/ML 4 ML VIAL IV STA (08:24)
[2023-09-23 08:33] LABS: African American GFR (CKD) >90 (>60 ml/min/1.73 sqM); Anion Gap 7 mmol/L; Blood Urea Nitrogen 10 mg/dL (9-20); Calcium 8.5 mg/dL (8.4-10.2); Carbon Dioxide 29 mmol/L (22-30); Chloride 99 mmol/L (98-107); Glucose 106 mg/dL (74-99); Non-African American GFR(CKD) >90 (>60 ml/min/1.73 sqM); Potassium 3.8 mmol/L (3.5-5.1); Sodium 135 mmol/L (137-145)
[2023-09-23 08:34] LABS: Basophils % (A) 0 %; Eosinophils # (A) 0.1 k/uL (0-0.7); Eosinophils % (A) 1 %; HCT 24.5 % (39.0-53.0); HGB 7.9 gm/dL (13.0-17.5); Hypochromasia Marked; Lymphocytes # (A) 0.3 k/uL (1.0-4.8); Lymphocytes % (A) 2 %; MCH 27.8 pg (25.0-35.0); MCHC 32.1 g/dL (31.0-37.0); MCV 86.8 fL (80.0-100.0); Mean Platelet Volume 7.2; Monocytes % (A) 8 %; Neutrophils # (A) 10.7 k/uL (1.3-7.7); Neutrophils % (A) 87 %; Platelet Count 357 k/uL (150-450); Poikilocytosis Slight; RBC 2.83 m/uL (4.30-5.90); RDW 15.7 % (11.5-15.5); WBC 12.3 k/uL (3.8-10.6)
[2023-09-23] MEDS: polyethylene glycoL 3350 17 GM POWD.PACK PO SCH (09:15)
--- NOTE | 2023-09-23 09:16 | XR ---
EXAMINATION TYPE: XR chest 1V portable DATE OF EXAM: 09/23/2023 COMPARISON: 09/20/2023 INDICATION: Short of breath TECHNIQUE: Single frontal view of the chest is obtained. FINDINGS: The heart size is normal. The pulmonary vasculature is prominent. Diffuse increased lung markings are present bilaterally. This is greatest at right upper lobe base. S ome underlying atelectasis may be present. Minimal effusion is present. IMPRESSION: 1. Diffuse increased lung markings correlate for pulmonary edema. Some infiltrate such as pneumonia o r atelectasis may be at the base of the right upper lobe. Minimal left pleural effusion.
[2023-09-23] MEDS: FUROSEMIDE 10 MG/ML 4 ML VIAL IV SCH (17:46)
[2023-09-23] MEDS: HEPARIN SODIUM,PORCINE 5,000 UNIT/ML 1 ML VIAL SQ SCH (20:15)
[2023-09-23] MEDS: PIPERACILLIN-TAZOBACTAM 3.375 GM in SODIUM CHLORIDE 0.9% 100 ML IVPB SCH (22:19)
--- NOTE | 2023-09-24 04:55 | PN ---
PROGRESS NOTE DATE OF SERVICE: 09/23/2023 I am covering for Dr. Lisa. SUBJECTIVE: 73-year-old gentleman, who was admitted with left great toe wet gangrene after surgery. The patient is currently short of breath today. Chest x-ray showed evidence of CHF acute exacerbation as well as some possible right upper lobe pneumonia. The patient is on IV and has multiple consultants following the patient closely. PAST MEDICAL HISTORY: Reviewed. REVIEW OF SYSTEMS: 14-point review is negative except as mentioned above. CURRENT MEDICATIONS: Reviewed and include DuoNeb, rest of medications reviewed. PHYSICAL EXAMINATION: VITAL SIGNS: Pulse is 108, blood pressure 160/80, respirations 16. HEENT: Conjunctivae normal. NECK: No JVD. CARDIOVASCULAR: S1, S2. RESPIRATIONS: Breath sounds diminished at the bases. Scattered rhonchi and crackles. ABDOMEN: Soft. NERVOUS SYSTEM: Nonfocal. LABS: WBC 12.3, hemoglobin 7.9. Sodium 135. Rest of the labs are noted. ASSESSMENT: 1. Left great toe wet gangrene with subcutaneous gas, status post surgery. 2. CHF, acute exacerbation with acute on chronic systolic dysfunction. 3. Acute hypoxic respiratory failure secondary to community-acquired, bilateral. 4. Hyponatremia. 5. Chronic anemia. 6. History of GI bleed. 7. Abdominal aortic aneurysm. 8. Right inguinal hernia. 9. History of chronic CHF. 10.Hypertension. 11.Hyperlipidemia. 12.History of EtOH. 13.History of THC. 14.Status post great toe amputation. RECOMMENDATIONS AND DISCUSSION: I recommend to continue current management and treatment, otherwise, repeat labs. Continue the antibiotics. I would recommend IV Lasix. Fluid restriction to 1200 mL per 24 hours and stop the IV fluids. Continue to monitor closely. Follow with Infectious Disease. The culture is showing gram-negative vastly 1 and 2. Prognosis guarded. Further recommendations to follow. Dr. Lisa will follow. MMODL / IJN: [id number] /
[2023-09-24] MEDS: HYDROcodone/APAP 5-325MG 1 EACH TAB PO PRN ×4 (06:10→23:51)
[2023-09-24] MEDS: PIPERACILLIN-TAZOBACTAM 3.375 GM in SODIUM CHLORIDE 0.9% 100 ML IVPB SCH ×3 (06:11→18:17)
[2023-09-24] MEDS: IPRATROPIUM-ALBUTEROL 3 ML NEB INHALATION SCH ×4 (07:30→20:01)
--- NOTE | 2023-09-24 07:58 | P.PN ---
Subjective Progress Note Date: 09/23/23 Principal diagnosis: Reason for follow-up is left big toe gas gangrene and left foot cellulitis Patient is a 73-year-old male with a past medical history significant for coronary disease hypertension hyperlipidemia heart failure did have peripheral arterial disease and previous amputation of left second and third toe presented to hospital with gas gangrene of his left big toe in this patient was status post amputation of the left big toe and revision of the second and third toe ray amputation. On today's evaluation that is 09/23/2023, the patient remains to be afebrile, the patient is breathing comfortably on room air and the patient denies any shortness of breath, the patient denies chest pain or any cough , patient denies any nausea/vomiting abdominal pain or diarrhea pain to the left foot controlled with the pain medication and denies having any diarrhea. Patient did have white count is 12.3 creatinine is 0.46, cultures currently growing gram-negative bacilli Objective - Vital Signs Vital signs: Vital Signs Temp 97.6 F 09/23/23 13:18 Pulse 116 H 09/23/23 15:24 Resp 16 09/23/23 13:18 BP 166/80 09/23/23 13:18 Pulse Ox 98 09/23/23 13:18 FiO2 Intake & Output 09/22/23 09/23/23 09/23/23 18:59 06:59 18:59 Intake Total 680 2100 Output Total 800 800 600 Balance -120 1300 -600 Intake: Intake, IV Titration 1600 Amount Ampicillin-Sulbactam 3 gm 200 In Sodium Chloride 0.9% 100 ml @ 200 mls/hr IVPB Q6HR [facility] Rx#:[id number] Sodium Chloride 0.9% 1, 900 000 ml @ 75 mls/hr IV . [id number] [facility] Rx#:[id number] Vancomycin 1,500 mg In 500 Sodium Chloride 0.9% 500 ml 500 ml @ 167 mls/hr IVPB Q12H [facility] Rx#: [id number] Oral 680 500 Output: Urine 800 800 600 Other: Voiding Method Bedside Commode Urinal # Voids 1 1 # Bowel Movements 1 - Exam GENERAL DESCRIPTION: An elderly male lying in bed in no distress RESPIRATORY SYSTEM: Unlabored breathing , decreased breath sounds at bases HEART: S1 S2 regular rate and rhythm , ABDOMEN: Soft , no tenderness EXTREMITIES: Left foot is currently dressed no drainage on the dressing - Labs CBC & Chem 7: 09/23/23 07:16 09/23/23 07:16 Labs: Abnormal Lab Results - Last 24 Hours (Table) 09/23/23 09/23/23 Range/Units 07:16 07:16 WBC 12.3 H (3.8-10.6) k/uL RBC 2.83 L (4.30-5.90) m/uL Hgb 7.9 L (13.0-17.5) gm/dL Hct 24.5 L (39.0-53.0) % RDW 15.7 H (11.5-15.5) % Neutrophils # 10.7 H (1.3-7.7) k/uL Lymphocytes # 0.3 L (1.0-4.8) k/uL Sodium 135 L (137-145) mmol/L Creatinine 0.46 L (0.66-1.25) mg/dL Glucose 106 H (74-99) mg/dL Microbiology - Last 24 Hours (Table) 09/20/23 14:24 Gram Stain - Preliminary Toe - Left First Wound Culture - Preliminary Gram Neg Bacilli Gram Neg Bacilli#2 09/19/23 21:37 Blood Culture - Preliminary Blood Assessment and Plan (1) Gas gangrene Current Visit: Yes Status: Acute Code(s): A48.0 - GAS GANGRENE SNOMED Code(s): 32524851 (2) Ischemic toe Current Visit: Yes Status: Acute Code(s): I99.8 - OTHER DISORDER OF CIRCULATORY SYSTEM SNOMED Code(s): 530131729 (3) Wound of left foot Current Visit: Yes Status: Acute Code(s): S91.302A - UNSPECIFIED OPEN WOUND, LEFT FOOT, INITIAL ENCOUNTER SNOMED Code(s): 97178494345956281 Plan: 1patient with a left great toe gangrene in this patient who did have a history of peripheral arterial disease and did have previous amputation of his toes now with a nonhealing wound and discoloration on the left big toe and concerning for secondary cellulitis x-rays were suspicious for gas-forming pathogen 2-blood cultures have been obtained as well as local culture at the time of surgery, which are currently growing gram-negative bacilli. 3we will discontinue Unasyn and vancomycin. 4start the patient on Zosyn while waiting for the culture to finalize will likely need PICC line and outpatient IV antibiotics Dictation was produced using [employer] dictation software. please excuse any grammatical, word or spelling errors. Time with Patient: Less than 30
[2023-09-24 08:28] LABS: Potassium 3.6 mmol/L (3.5-5.1)
[2023-09-24 08:29] LABS: African American GFR (CKD) >90 (>60 ml/min/1.73 sqM); Anion Gap 6 mmol/L; Blood Urea Nitrogen 10 mg/dL (9-20); Calcium 8.3 mg/dL (8.4-10.2); Carbon Dioxide 30 mmol/L (22-30); Chloride 97 mmol/L (98-107); Glucose 88 mg/dL (74-99); Non-African American GFR(CKD) >90 (>60 ml/min/1.73 sqM); Sodium 133 mmol/L (137-145)
[2023-09-24] MEDS: MULTIVITAMINS, THERA 1 EACH TAB PO SCH (08:43)
[2023-09-24] MEDS: guaiFENesin 600 MG TABLET.ER PO SCH ×2 (08:43→20:31)
[2023-09-24] MEDS: PANTOPRAZOLE 40 MG/10 ML VIAL IVP SCH (08:43)
[2023-09-24] MEDS: FOLIC ACID 1 MG TAB PO SCH (08:43)
[2023-09-24] MEDS: polyethylene glycoL 3350 17 GM POWD.PACK PO SCH (08:43)
[2023-09-24] MEDS: NICOTINE 21MG/24HR PATCH TRANSDERM SCH (08:44)
[2023-09-24] MEDS: FUROSEMIDE 10 MG/ML 4 ML VIAL IV SCH (08:44)
[2023-09-24] MEDS: HEPARIN SODIUM,PORCINE 5,000 UNIT/ML 1 ML VIAL SQ SCH ×2 (08:44→20:31)
[2023-09-24] MEDS: THIAMINE 100 MG TAB PO SCH (08:44)
--- NOTE | 2023-09-24 09:59 | P.PN ---
Subjective Progress Note Date: 09/24/23 Principal diagnosis: Gas gangrene left great toe Patient is seen and examined today as a follow-up. He is status post left great toe amputation. No new changes. He's been afebrile. Cultures are currently pending, preliminary with gram-negative bacilli, Gram stain negative bacilli #2. He remains on IV antibiotics. Objective - Vital Signs Vital signs: Vital Signs Temp 98.5 F 09/24/23 07:13 Pulse 112 H 09/24/23 07:48 Resp 18 09/24/23 07:13 BP 124/59 09/24/23 07:13 Pulse Ox 99 09/24/23 07:13 FiO2 Intake & Output 09/23/23 09/24/23 09/24/23 18:59 06:59 18:59 Intake Total 780 700 Output Total 1400 Balance -620 700 Intake: Intake, IV Titration 100 Amount Piperacillin-Tazobactam 3 100 .375 gm In Sodium Chloride 0.9% 100 ml @ 25 mls/hr IVPB Q8H [facility] Rx#: [id number] Oral 780 600 Output: Urine 1400 Other: Voiding Method Bedside Commode Urinal # Voids 1 4 # Bowel Movements 1 2 - Exam General appearance: The patient is alert, oriented, appears in no acute distress. HET: Head is normocephalic and atraumatic. Pupils are equal and reactive. Neck: Supple. Heart: Regular. Lungs: Equal expansion, normal respiratory effort. Diminished bilaterally. Abdomen: Soft, nontender, nondistended. Extremities: Left foot with dressing clean dry and intact. Dressing changed, good granulation noted. No active bleeding. Neurological: No focal deficits. Strength and sensation are grossly intact. - Labs CBC & Chem 7: 09/23/23 07:16 09/24/23 06:49 Labs: Abnormal Lab Results - Last 24 Hours (Table) 09/24/23 Range/Units 06:49 Sodium 133 L (137-145) mmol/L Chloride 97 L (98-107) mmol/L Creatinine 0.49 L (0.66-1.25) mg/dL Calcium 8.3 L (8.4-10.2) mg/dL Microbiology - Last 24 Hours (Table) 09/20/23 14:24 Gram Stain - Preliminary Toe - Left First Wound Culture - Preliminary Gram Neg Bacilli Gram Neg Bacilli#2 09/19/23 21:37 Blood Culture - Preliminary Blood Assessment and Plan Assessment: 1. Wet gangrene left great toe with subcutaneous gas status post amputation 2. Peripheral arterial disease 3. Shortness of breath, cough 4. Previous second and third toe amputation 5. Chronic wound to left foot 6. Abdominal aortic aneurysm 7. Coronary artery disease status post CABG 8. Anemia 9. History of GI bleed 10. Hypertension 11. Alcohol abuse 12. Nicotine dependence Plan: 1. Patient is status post left great toe amputation 2. Daily wet-to-dry dressing changes 3. Continue with recommendations from infectious disease 4. Discussed with patient importance of smoking cessation and alcohol abstinenc e 5. As of Now plan will be to do abdominal aortic repair and endograft as scheduled October 05 to allow infection to clear 6. Patient is cleared from vascular surgery for discharge 7. The rest of medical management per primary medical team Thank you for this consultation, we will continue to follow. The impression and plan of care has been dictated as directed. Dr. Reyna I performed a history and examination of this patient, discussed the same with the dictator. I agree with the dictator's note ,documented as a scribe. Any additional findings or plans will be noted.
[2023-09-24 11:41] LABS: Basophils # (A) 0.02 X 10*3/uL (0.00-0.10); Basophils % (A) 0.2 %; Eosinophils # (A) 0.15 X 10*3/uL (0.04-0.35); Eosinophils % (A) 1.4 %; HCT 21.9 % (39.6-50.0); HGB 6.8 g/dL (13.0-17.0); Lymphocytes # (A) 0.27 X 10*3/uL (0.90-5.00); Lymphocytes % (A) 2.5 %; MCH 26.5 pg (27.0-32.0); MCHC 31.1 g/dL (32.0-37.0); MCV 85.2 FL (80.0-97.0); Mean Platelet Volume 9.1 FL (9.5-12.2); Monocytes # (A) 1.27 X 10*3/uL (0.20-1.00); Monocytes % (A) 11.7 %; NRBC Per 100 WBC 0 X 10*3/uL (0.00-0.01); Neutrophils # (A) 9.11 X 10*3/uL (1.80-7.70); Neutrophils % (A) 83.8 %; Platelet Count 313 X 10*3/uL (140-440); RBC 2.57 X 10*6/uL (4.40-5.60); RDW 15.8 % (11.5-14.5); WBC 10.86 X 10*3/uL (4.50-10.00)
--- NOTE | 2023-09-24 12:23 | P.PN ---
Subjective Progress Note Date: 09/24/23 H&P Date: 09/20/23 Chief Complaint: Worsening left foot wounds This is a 73-year-old gentleman with past medical history significant for chronic left foot wound, left foot second and third toe amputations,follows with [facility], PAD, infrarenal AAA, CAD, CABG, GI bleed, anemia, herniated disc, hypertension, hyperlipidemia, nicotine dependence, daily alcohol use-reports 2X 12 ounce beers daily, and multiple other medical issues reports he was directed by the wound care center to proceed to the ER related to increased wound drainage. Patient missed his wound care appointment on Sunday, phoned into the wound care center to report worsening appearance, drainage, pain of his left foot/great toe. Complains of new onset of shortness of breath, congested cough. Denies chest pain, palpitations. Denies fever,chills or sweats. Denies body aches. Patient is a vague historian. Chest x-ray reported - correlate for COPD with superimposed CHF and pulmonary vascular congestion along with trace effusions, atypical pneumonia would be alternative consideration. Recent CTA abdomen aorta with runoff completed on 08/02 reported: New right kidney exophytic mass medially measuring up to 2.3 cm concerning for renal cell carcinoma. No evidence of lymph adenopathy.Occlusion of the left super fascial femoral artery with reconstitution near the vessels of the legs with 2 vessels crossing the ankle and the left.Severe arthrosclerosis of the right SFA with multiple areas of occlusion with reconstitution at the popliteal artery and with at least one vessel posterior tibial artery crossing the ankle. The anterior tibial artery on the right appears occluded. Infrarenal abdominal aorta fusiform dilation up to 5.9 cm. (Patient is scheduled for endograft on 10/05/[address] Padilla[address] Right inguinal hernia containing loop of cecum. Colonic diverticulosis. Left toe x-ray reported subcutaneous gas with possible early osteophyte involving the first digit proximal phalanx and metatarsal head. Postsurgical changes to the second and third digit without definitive osteomyelitis.Afebrile, WBC 14.8, hemoglobin 8, platelets 495, MCV 87.8. Sodium 132, potassium 4.4, bicarb 24, BUN 9, creatinine 0.44, glucose 104, lactic acid 1, alk phos 134, CRP 12.5. Maintaining O2 sats above 90% on 3 L nasal cannula. Covid testing in progress. Anticoagulation with heparin drip initiated in the ER. 09/21/2023 Respiratory status significantly improved. Denies chest pain, palpitations or shortness of breath, maintaining O2 sats of high 90s on 2 L nasal cannula. Reports minimal productive cough. Maintained on Unasyn and vancomycin . Blood and wound/deep Cultures pending .status post left great toe amputation with second and third toe amputation revision. Tolerated procedure well. Reports surgical pain site. Afebrile, WBC 14.2, Hemoglobin 7.2, platelets 366, sodium 1:30, BUN 12, creatinine 0.47. C-reactive protein 13.6, pro calcitonin 0.04. Covid not detected. Echo completed, report pending. 09/24/2023 Wound cultures reporting gram-negative bacilli, Citrobacter braakii. Antibiotics adjusted yesterday to Zosyn. afebrile. Renal function stable.Echo cardiogram reported moderate to severe LV dysfunction with EF 35% basal inferior wall akinetic, anterio-septum and hypokinetic, mild mitral regurgitation, mild aortic stenosis .maintained on IV push Lasix, nebulized bronchodilators with breathing significantly improved, and O2 sats in the high 90s on room air. Objective - Vital Signs Vital signs: Vital Signs Temp 98.5 F 09/24/23 07:13 Pulse 108 H 09/24/23 10:58 Resp 18 09/24/23 07:13 BP 124/59 09/24/23 07:13 Pulse Ox 99 09/24/23 07:13 FiO2 Intake & Output 09/23/23 09/24/23 09/24/23 18:59 06:59 18:59 Intake Total 780 700 Output Total 1400 1325 Balance -620 700 -1325 Intake: Intake, IV Titration 100 Amount Piperacillin-Tazobactam 3 100 .375 gm In Sodium Chloride 0.9% 100 ml @ 25 mls/hr IVPB Q8H [facility] Rx#: [id number] Oral 780 600 Output: Urine 1400 1325 Other: Voiding Method Bedside Commode Urinal # Voids 1 4 # Bowel Movements 1 2 - Exam PHYSICAL EXAMINATION: VS: As above GENERAL: Alert and oriented 3, sitting up at side of bed, no acute distress HEENT: Normocephalic, atraumatic. Pupils equal and reactive. MMM. NECK: Supple, no JVD CHEST EXAMINATION: Unlabored, equal air entry, fine right bibasilar crackles. CARDIAC: Normal S1, S2 with no gallops. No murmurs ABDOMEN: Soft. Nondistended, nontender, Bowel sounds normal. No guarding, no rigidity. EXTREMITIES: Left foot warm,dressing clean dry and intact NEUROLOGICAL: Cranial nerves II through XII grossly intact ,No focal deficits noted Skin: No rash, warm and dry. Microbiology 09/20/23 14:24 Toe - Left First Gram Stain - Preliminary 09/20/23 14:24 Toe - Left First Wound Culture - Preliminary Gram Neg Bacilli Citrobacter braakii 09/19/23 21:37 Blood Blood Culture - Preliminary - Labs CBC & Chem 7: 09/24/23 06:49 09/24/23 06:49 Labs: Abnormal Lab Results - Last 24 Hours (Table) 09/24/23 Range/Units 06:49 Sodium 133 L (137-145) mmol/L Chloride 97 L (98-107) mmol/L Creatinine 0.49 L (0.66-1.25) mg/dL Calcium 8.3 L (8.4-10.2) mg/dL Microbiology - Last 24 Hours (Table) 09/20/23 14:24 Gram Stain - Preliminary Toe - Left First Wound Culture - Preliminary Gram Neg Bacilli Citrobacter braakii Assessment and Plan Assessment: Left great toe,wet gangrene with subcutaneouos gas, in a patient with history of PAD, follows with the wound care center secondary to chronic left foot wound with prior second and third toe amputation. Status post left great toe amputation. Wound cultures reporting gram-negative bacilli, Citrobacter braakii. Acute on Chronic CHF, systolic dysfunction, EF 35%. Aortic stenosis Acute hypoxic respiratory failure, multifactorial secondary to all the above possible community-acquired bacterial pneumonia. Hyponatremia Chronic Anemia History of GI bleed Abdominal aortic region infrarenal, up to 5.9 cm Right inguinal hernia containing loop of cecum reported per CTA runoff 08/02 New right Kidney exophytic mass medially, 2.3 cm, concerning for renal cell Ca reported per CTA runoff 08/01/23, further workup outpatient. Coronary disease with history of CABG Hypertension Hyperlipidemia Nicotine dependence Daily alcohol use Marijuana use Plan: Continue on current medication regime ,monitoring and symptomatic treatment. Cardiology consulted secondary to CHF, moderate to severe LV dys function, EF 35%.Antibiotics as per Infectious disease. Smoking cessation and alcohol abstinence reinforced.cleared bibasilar surgery for discharge .scheduled for abdominal aortic repair/ endograft as scheduled October 05, after clearance of infection. Discharge planning in progress pending final DC recommendations/antibiotics and clearance per infectious disease as well as evaluation by cardiology with recommendations. The impression and plan of care has been dictated as directed. : I performed a history and examination of this patient, discussed the same with the dictator. I agree with the dictator's note ,documented as a scribe. Any additional findings or plans will be noted.
[2023-09-25] MEDS: PIPERACILLIN-TAZOBACTAM 3.375 GM in SODIUM CHLORIDE 0.9% 100 ML IVPB SCH ×3 (01:35→17:44)
[2023-09-25] MEDS: HYDROcodone/APAP 5-325MG 1 EACH TAB PO PRN ×4 (05:47→19:59)
[2023-09-25] MEDS: IPRATROPIUM-ALBUTEROL 3 ML NEB INHALATION SCH ×4 (07:30→18:24)
[2023-09-25] MEDS: THIAMINE 100 MG TAB PO SCH (09:08)
[2023-09-25] MEDS: PANTOPRAZOLE 40 MG/10 ML VIAL IVP SCH (09:08)
[2023-09-25] MEDS: guaiFENesin 600 MG TABLET.ER PO SCH ×2 (09:08→19:59)
[2023-09-25] MEDS: FUROSEMIDE 10 MG/ML 4 ML VIAL IV SCH (09:08)
[2023-09-25] MEDS: MULTIVITAMINS, THERA 1 EACH TAB PO SCH (09:08)
[2023-09-25] MEDS: FOLIC ACID 1 MG TAB PO SCH (09:08)
[2023-09-25] MEDS: NICOTINE 21MG/24HR PATCH TRANSDERM SCH (09:09)
[2023-09-25] MEDS: polyethylene glycoL 3350 17 GM POWD.PACK PO SCH (09:09)
[2023-09-25] MEDS: HEPARIN SODIUM,PORCINE 5,000 UNIT/ML 1 ML VIAL SQ SCH ×2 (09:09→19:59)
[2023-09-25] MEDS ORDERED: carvediloL 12.5 MG TAB PO SCH (09:15)
[2023-09-25 09:45] LABS: HCT 26.7 % (39.0-53.0); HGB 8.6 gm/dL (13.0-17.5); Hypochromasia Moderate; MCH 27.4 pg (25.0-35.0); MCHC 32.3 g/dL (31.0-37.0); MCV 84.8 fL (80.0-100.0); Mean Platelet Volume 7.6; Platelet Count 342 k/uL (150-450); Poikilocytosis Moderate; RBC 3.15 m/uL (4.30-5.90); RDW 15.6 % (11.5-15.5); WBC 9.2 k/uL (3.8-10.6)
[2023-09-25] MEDS: SPIRONOLACTONE 25 MG TAB PO SCH (09:46)
[2023-09-25] MEDS: carvediloL 6.25 MG TAB PO SCH ×2 (09:46→17:44)
[2023-09-25 09:56] LABS: African American GFR (CKD) >90 (>60 ml/min/1.73 sqM); Anion Gap 6 mmol/L; Blood Urea Nitrogen 8 mg/dL (9-20); Calcium 8.5 mg/dL (8.4-10.2); Carbon Dioxide 32 mmol/L (22-30); Chloride 96 mmol/L (98-107); Glucose 97 mg/dL (74-99); Non-African American GFR(CKD) >90 (>60 ml/min/1.73 sqM); Potassium 3.1 mmol/L (3.5-5.1); Sodium 134 mmol/L (137-145)
[2023-09-25] MEDS: POTASSIUM CHLORIDE ER 20 MEQ TAB.ER PO SCH ×2 (10:31→12:51)
[2023-09-25] MEDS: ASPIRIN 81 MG PO SCH (10:31)
--- NOTE | 2023-09-25 10:33 | P.CRDCN ---
History of Present Illness History of present illness: HISTORY OF PRESENT ILLNESS: This is a 73-year-old male with a past medical history significant for coronary artery disease with previous CABG, peripheral arterial disease, ischemic cardiomyopathy, valvular heart disease, hypertension, hyperlipidemia, alcohol use, and nicotine dependence. Patient follows in the office with Dr. Hoffman. We have been asked to see the patient in consultation for congestive heart failure. Patient is status post left great toe amputation and revision of second and third toe amputation secondary to gangrene. Patient examined this morning. He is sitting on the side of the bed. He denies chest pain or pressure. He reports very mild shortness of breath. Vital signs are stable. He is mildly tachycardic with heart rate around 110. None of his home medications have been resumed at the time of examination. * EKG reveals sinus tachycardia with no signs of acute ischemia * Chest xray increased lung markings correlate for pulmonary edema. Some infiltrate such as pneumonia or atelectasis may be at the base of the right upper lobe. Minimal left pleural effusion. * Echocardiogram obtained this admission reveals ejection fraction 35-40%, aortic valve not well visualized, there appears to be at least moderate calcification, trace TR, mild aortic stenosis REVIEW OF SYSTEMS: At the time of my exam: CONSTITUTIONAL: Denies fever or chills. HEENT: Denies blurred vision, vision changes, or eye pain. Denies hemoptysis CARDIOVASCULAR: Denies chest pain. Denies orthopnea. Denies PND. Denies palpita tions RESPIRATORY: Denies shortness of breath. GASTROINTESTINAL: Denies abdominal pain. Denies nausea or vomiting. HEMATOLOGIC: Denies bleeding disorders. GENITOURINARY: Denies any blood in urine. SKIN: Denies pruitis. Denies rash. PHYSICAL EXAM: VITAL SIGNS: Reviewed. GENERAL: Well-developed in no acute distress. HEENT: Head is normocephalic. Pupils are equal, round. Sclerae anicteric. Mucous membranes of the mouth are moist. Neck supple. No JVD or thyromegaly LUNGS: Respirations even and unlabored. Lungs with decreased air exchange HEART: Regular rate and rhythm. S1 and S2 heard. Systolic murmur noted. ABDOMEN: Soft. Nondistended. Nontender. EXTREMITIES: Normal range of motion. No clubbing or cyanosis. Peripheral pulses intact. Dressing noted to left foot NEUROLOGIC: Awake and alert. Oriented x 3. ASSESSMENT: Wet gangrene, status post left great toe amputation Coronary artery disease with previous CABG Acute on chronic heart failure with reduced ejection fraction Abdominal aortic aneurysm Peripheral arterial disease Ischemic cardiomyopathy Valvular heart disease Hypertension Hyperlipidemia Alcohol abuse Nicotine dependence PLAN: Continue IV Lasix Begin carvedilol 6.25 mg twice a day Resume home medications including Aldactone, lisinopril, and atorvastatin Further recommendations pending patient's course Nurse practitioner note has been reviewed by physician. Signing provider agrees with the documented findings, assessment, and plan of care. Past Medical History Past Medical History: Coronary Artery Disease (CAD), Heart Failure, Hyperlipidemia, Hypertension, Vascular Disorder Additional Past Medical History / Comment(s): aortic aneusrym, herniated disc, peripheral vascular disease History of Any Multi-Drug Resistant Organisms: None Reported Past Surgical History: Appendectomy, Coronary Bypass/CABG, Orthopedic Surgery Additional Past Surgical History / Comment(s): Right rotater cuff repair Past Anesthesia/Blood Transfusion Reactions: No Reported Reaction Past Psychological History: No Psychological Hx Reported Smoking Status: Current some day smoker, Light tobacco smoker Past Alcohol Use History: Daily, Occasional Past Drug Use History: Marijuana - Past Family History Father Family Medical History: Coronary Artery Disease (CAD) Additional Family Medical History / Comment(s): triple bypass Mother Family Medical History: Coronary Artery Disease (CAD), Dementia Medications and Allergies Home Medications Medication Instructions Recorded Confirmed Type Clopidogrel [Plavix] 75 mg PO DAILY #30 tab 02/22/16 09/20/23 Rx Montelukast [Singulair] 10 mg PO HS #30 tab 02/22/16 09/20/23 Rx lisinopriL [Zestril] 2.5 mg PO HS #30 tab 02/22/16 09/20/23 Rx Loratadine [Claritin] 10 mg PO DAILY 09/08/20 09/20/23 History Atorvastatin [Lipitor] 80 mg PO HS 09/20/23 09/20/23 History Gabapentin 600 mg PO TID 09/20/23 09/20/23 History HYDROcodone/APAP 7.5-325MG [Ring[place] 1 tab PO BID PRN 09/20/23 09/20/23 History 7.5-325] Omeprazole [PriLOSEC] 20 mg PO AC-BID 09/20/23 09/20/23 History SILVER sulfADIAZINE Cream 1 applic TOPICAL BID 09/20/23 09/20/23 History [Silvadene 1% Cream] Spironolactone [Aldactone] 25 mg PO DAILY 09/20/23 09/20/23 History Allergies Allergy/AdvReac Type Severity Reaction Status Date / Time No Known Allergies Allergy Verified 09/20/23 13:06 Physical Exam Vitals: Vital Signs Temp Pulse Pulse Resp BP BP BP 09/25/23 07:29 98.2 F 112 H 18 133/67 09/25/23 01:36 99.1 F 102 H 18 132/69 09/24/23 20:24 110 H 09/24/23 20:05 18 09/24/23 20:01 101 H 09/24/23 19:22 99 F 113 H 16 146/74 09/24/23 18:28 99.0 F 110 H 18 129/67 09/24/23 15:37 98.6 F 102 H 16 127/65 09/24/23 15:17 98.7 F 98 16 137/71 09/24/23 15:15 112 H 09/24/23 12:46 98.5 F 101 H 18 164/77 09/24/23 11:09 108 H 09/24/23 10:58 108 H Pulse Ox 09/25/23 07:29 90 L 09/25/23 01:36 91 L 09/24/23 20:24 09/24/23 20:05 09/24/23 20:01 09/24/23 19:22 91 L 09/24/23 18:28 91 L 09/24/23 15:37 98 09/24/23 15:17 100 09/24/23 15:15 09/24/23 12:46 96 09/24/23 11:09 09/24/23 10:58 Intake and Output 09/24/23 09/25/23 09/25/23 22:59 06:59 14:59 Intake Total 310 700 Output Total 300 Balance 10 700 Intake: Intake, IV Titration 100 Amount Piperacillin-Tazobactam 3 100 .375 gm In Sodium Chloride 0.9% 100 ml @ 25 mls/hr IVPB Q8H [facility] Rx#: [id number] Oral 600 Blood Product 310 Rc As-1 Unit 310 [id number] Output: Urine 300 Other: Voiding Method Bedside Commode Urinal # Voids 3 Results 09/25/23 09:16 09/25/23 09:16 CBC 09/24/23 Range/Units 06:49 WBC 10.86 H (4.50-10.00) X 10*3/uL RBC 2.57 L (4.40-5.60) X 10*6/uL Hgb 6.8 A* (13.0-17.0) g/dL Hct 21.9 L (39.6-50.0) % Plt Count 313 (140-440) X 10*3/uL Current Medications Generic Name Dose Route Start Last Admin Trade Name Freq PRN Reason Stop Dose Admin Acetaminophen 650 mg 09/20/23 01:19 Acetaminophen Tab 325 Mg Tab PO Q6HR PRN Mild Pain or Fever > 100.5 Hydrocodone Bitart/Acetaminophen 1 each 09/20/23 16:54 09/25/23 05:47 Hydrocodone/Apap 5-325mg 1 Each Tab PO 1 each Q4HR PRN Administration Pain Albuterol/Ipratropium 3 ml 09/20/23 12:00 09/25/23 07:30 Ipratropium-Albuterol 3 Ml Neb INHALATION Not Given RT-QID LIZA Albuterol/Ipratropium 3 ml 09/20/23 09:18 09/23/23 04:55 Ipratropium-Albuterol 3 Ml Neb INHALATION 3 ml RT-Q2H PRN Administration Shortness Of Breath Or Wheezing Atorvastatin Calcium 80 mg 09/25/23 21:00 Atorvastatin 80 Mg Tab PO HS LIZA Carvedilol 6.25 mg 09/25/23 09:15 Carvedilol 6.25 Mg Tab PO BID-W/MEALS LIZA Folic Acid 1 mg 09/21/23 09:00 09/25/23 09:08 Folic Acid 1 Mg Tab PO 1 mg DAILY LIZA Administration Furosemide 40 mg 09/23/23 16:00 09/25/23 09:08 Furosemide 10 Mg/Ml 4 Ml Vial IV 40 mg DAILY LIZA Administration Guaifenesin 1,200 mg 09/21/23 10:00 09/25/23 09:08 Guaifenesin 600 Mg Tablet.Er PO 1,200 mg Q12HR LIZA Administration Heparin Sodium (Porcine) 5,000 unit 09/23/23 21:00 09/25/23 09:09 Heparin Sodium,Porcine 5,000 Unit/Ml 1 Ml Vial SQ 5,000 unit Q12HR LIZA Administration Hydromorphone HCl 0.5 mg 09/20/23 16:54 09/21/23 09:17 Hydromorphone 0.5 Mg/0.5 Ml Syringe IVP 0.5 mg Q4HR PRN Administration Pain Piperacillin Sod/Tazobactam 100 mls @ 25 mls/hr 09/24/23 18:00 09/25/23 09:08 Sod 3.375 gm/ Sodium Chloride IVPB 25 mls/hr Q8H LIZA Administration Protocol Lisinopril 2.5 mg 09/25/23 21:00 Lisinopril 2.5 Mg Tab PO HS LIZA Lorazepam 1 mg 09/20/23 09:15 Lorazepam 2 Mg/Ml Inj IV Q1HR PRN CIWA 10 to 15 Lorazepam 1 mg 09/20/23 09:15 Lorazepam 2 Mg/Ml Inj IV Q2HR PRN CIWA 8 or 9 Lorazepam 2 mg 09/20/23 09:15 Lorazepam 2 Mg/Ml Inj IV Q6HR PRN Seizures Multivitamins 1 each 09/21/23 09:00 09/25/23 09:08 Multivitamins, Thera 1 Each Tab PO 1 each DAILY LIZA Administration Naloxone HCl 0.2 mg 09/20/23 01:19 Naloxone 0.4 Mg/Ml 1 Ml Vial IV Q2M PRN Opioid Reversal Nicotine 1 patch 09/20/23 09:30 09/25/23 09:09 Nicotine 21mg/24hr Patch TRANSDERM Not Given DAILY LIZA Pantoprazole Sodium 40 mg 09/20/23 09:30 09/25/23 09:08 Pantoprazole 40 Mg/10 Ml Vial IVP 40 mg DAILY LIZA Administration Polyethylene Glycol 17 gm 09/23/23 09:00 09/25/23 09:09 Polyethylene Glycol 3350 17 Gm Powd.Pack PO 17 gm DAILY LIZA Administration Spironolactone 25 mg 09/25/23 09:15 Spironolactone 25 Mg Tab PO DAILY LIZA Thiamine HCl 100 mg 09/21/23 09:00 09/25/23 09:08 Thiamine 100 Mg Tab PO 100 mg DAILY LIZA Administration Intake and Output 09/24/23 09/25/23 09/25/23 22:59 06:59 14:59 Intake Total 310 700 Output Total 300 Balance 10 700 Intake: Intake, IV Titration 100 Amount Piperacillin-Tazobactam 3 100 .375 gm In Sodium Chloride 0.9% 100 ml @ 25 mls/hr IVPB Q8H [facility] Rx#: [id number] Oral 600 Blood Product 310 Rc As-1 Unit 310 [id number] Output: Urine 300 Other: Voiding Method Bedside Commode Urinal # Voids 3 09/24/23 06:49 09/24/23 06:49
--- NOTE | 2023-09-25 13:16 | P.PN ---
Subjective Progress Note Date: 09/24/23 Principal diagnosis: Reason for follow-up is left big toe gas gangrene and left foot cellulitis Patient is a 73-year-old male with a past medical history significant for coronary disease hypertension hyperlipidemia heart failure did have peripheral arterial disease and previous amputation of left second and third toe presented to hospital with gas gangrene of his left big toe in this patient was status post amputation of the left big toe and revision of the second and third toe ray amputation. On today's evaluation that is 09/24/2023, the patient continues to be afebrile patient is breathing comfortably on 2 L nasal cannula supplemental oxygen the patient denies chest pain did have occasional cough no sputum production patient denies abdominal pain no nausea no vomiting and no diarrhea has been reported, denies pain to the left foot Patient did have white count is down to 10.86 creatinine is 0.49, cultures currently growing gram-negative bacilli Objective - Vital Signs Vital signs: Vital Signs Temp 98.6 F 09/24/23 15:37 Pulse 102 H 09/24/23 15:37 Resp 16 09/24/23 15:37 BP 127/65 09/24/23 15:37 Pulse Ox 98 09/24/23 15:37 FiO2 Intake & Output 09/23/23 09/24/23 09/24/23 18:59 06:59 18:59 Intake Total 780 700 0 Output Total 1400 1325 Balance -620 700 -1325 Intake: Intake, IV Titration 100 Amount Piperacillin-Tazobactam 3 100 .375 gm In Sodium Chloride 0.9% 100 ml @ 25 mls/hr IVPB Q8H [facility] Rx#: [id number] Oral 780 600 Blood Product 0 Rc As-1 Unit 0 [id number] Output: Urine 1400 1325 Other: Voiding Method Bedside Commode Bedside Commode Urinal Urinal # Voids 1 4 1 # Bowel Movements 1 2 1 - Exam GENERAL DESCRIPTION: An elderly male lying in bed in no distress RESPIRATORY SYSTEM: Unlabored breathing , decreased breath sounds at bases HEART: S1 S2 regular rate and rhythm , ABDOMEN: Soft , no tenderness EXTREMITIES: Left foot is currently dressed no drainage on the dressing - Labs CBC & Chem 7: 09/25/23 09:16 09/25/23 09:16 Labs: Abnormal Lab Results - Last 24 Hours (Table) 01/09/24/23 09/24/23 Range/Units 06:49 06:49 12:38 WBC 10.86 H (4.50-10.00) X 10*3/uL RBC 2.57 L (4.40-5.60) X 10*6/uL Hgb 6.8 A* (13.0-17.0) g/dL Hct 21.9 L (39.6-50.0) % MCH 26.5 L (27.0-32.0) pg MCHC 31.1 L (32.0-37.0) g/dL RDW 15.8 H (11.5-14.5) % MPV 9.1 L (9.5-12.2) FL Neutrophils # 9.11 H (1.80-7.70) X 10*3/uL Lymphocytes # 0.27 L (0.90-5.00) X 10*3/uL Monocytes # 1.27 H (0.20-1.00) X 10*3/uL Sodium 133 L (137-145) mmol/L Chloride 97 L (98-107) mmol/L Creatinine 0.49 L (0.66-1.25) mg/dL Calcium 8.3 L (8.4-10.2) mg/dL Crossmatch See Detail Microbiology - Last 24 Hours (Table) 09/20/23 14:24 Anaerobic Culture - Final Toe - Left First Anaerobic Gm Negative Bacilli 09/20/23 14:24 Gram Stain - Preliminary Toe - Left First Wound Culture - Preliminary Gram Neg Bacilli Citrobacter braakii Assessment and Plan (1) Gas gangrene Current Visit: Yes Status: Acute Code(s): A48.0 - GAS GANGRENE SNOMED Code(s): 95625055 (2) Ischemic toe Current Visit: Yes Status: Acute Code(s): I99.8 - OTHER DISORDER OF CIRCULATORY SYSTEM SNOMED Code(s): 596680017 (3) Wound of left foot Current Visit: Yes Status: Acute Code(s): S91.302A - UNSPECIFIED OPEN WOUND, LEFT FOOT, INITIAL ENCOUNTER SNOMED Code(s): 68421635366005749 Plan: 1patient with a left great toe gangrene in this patient who did have a history of peripheral arterial disease and did have previous amputation of his toes now with a nonhealing wound and discoloration on the left big toe and concerning for secondary cellulitis x-rays were suspicious for gas-forming pathogen 2-blood cultures have been obtained as well as local culture at the time of surgery, which are currently growing gram-negative bacilli. 3patient to continue with Zosyn while waiting for the culture to finalize, patient will need PICC line for outpatient IV antibiotics Dictation was produced using [employer] dictation software. please excuse any grammatical, word or spelling errors. Time with Patient: Less than 30
--- NOTE | 2023-09-25 13:18 | P.PN ---
Subjective Progress Note Date: 09/25/23 Principal diagnosis: Reason for follow-up is left big toe gas gangrene and left foot cellulitis Patient is a 73-year-old male with a past medical history significant for coronary disease hypertension hyperlipidemia heart failure did have peripheral arterial disease and previous amputation of left second and third toe presented to hospital with gas gangrene of his left big toe in this patient was status post amputation of the left big toe and revision of the second and third toe ray amputation. On today's evaluation that is 09/25/2023, the patient remains to be afebrile, the patient is breathing comfortably on 2 L nasal cannula oxygen and the patient denies any shortness of breath, the patient denies chest pain or any cough , patient denies any nausea/vomiting abdominal pain or diarrhea, the patient denies pain to the left foot Patient did have white count normalized to eight 9.2 creatinine is 0.48, cultures currently growing Citrobacter Alcaligenes species and anaerobe Objective - Vital Signs Vital signs: Vital Signs Temp 98.8 F 09/25/23 11:58 Pulse 79 09/25/23 11:58 Resp 18 09/25/23 11:58 BP 101/55 09/25/23 11:58 Pulse Ox 92 L 09/25/23 11:58 FiO2 Intake & Output 09/24/23 09/25/23 09/25/23 18:59 06:59 18:59 Intake Total 310 700 Output Total 1625 Balance -1315 700 Intake: Intake, IV Titration 100 Amount Piperacillin-Tazobactam 3 100 .375 gm In Sodium Chloride 0.9% 100 ml @ 25 mls/hr IVPB Q8H [facility] Rx#: [id number] Oral 600 Blood Product 310 Rc As-1 Unit 310 [id number] Output: Urine 1625 Other: Voiding Method Bedside Commode Bedside Commode Urinal Urinal # Voids 1 3 # Bowel Movements 1 - Exam GENERAL DESCRIPTION: An elderly male lying in bed in no distress RESPIRATORY SYSTEM: Unlabored breathing , decreased breath sounds at bases HEART: S1 S2 regular rate and rhythm , ABDOMEN: Soft , no tenderness EXTREMITIES: Left foot is currently dressed no drainage on the dressing - Labs CBC & Chem 7: 09/25/23 09:16 09/25/23 09:16 Labs: Abnormal Lab Results - Last 24 Hours (Table) 09/24/23 09/25/23 09/25/23 Range/Units 12:38 09:16 09:16 RBC 3.15 L (4.30-5.90) m/uL Hgb 8.6 L (13.0-17.5) gm/dL Hct 26.7 L (39.0-53.0) % RDW 15.6 H (11.5-15.5) % Sodium 134 L (137-145) mmol/L Potassium 3.1 L (3.5-5.1) mmol/L Chloride 96 L (98-107) mmol/L Carbon Dioxide 32 H (22-30) mmol/L BUN 8 L (9-20) mg/dL Creatinine 0.48 L (0.66-1.25) mg/dL Crossmatch See Detail Microbiology - Last 24 Hours (Table) 09/20/23 14:24 Gram Stain - Final Toe - Left First Wound Culture - Final Alcaligen. faecalis Citrobacter braakii 09/19/23 21:37 Blood Culture - Final Blood 09/20/23 14:24 Anaerobic Culture - Final Toe - Left First Anaerobic Gm Negative Bacilli Assessment and Plan (1) Gas gangrene Current Visit: Yes Status: Acute Code(s): A48.0 - GAS GANGRENE SNOMED Code(s): 00053611 (2) Ischemic toe Current Visit: Yes Status: Acute Code(s): I99.8 - OTHER DISORDER OF CIRCULATORY SYSTEM SNOMED Code(s): 445692113 (3) Wound of left foot Current Visit: Yes Status: Acute Code(s): S91.302A - UNSPECIFIED OPEN WOUND, LEFT FOOT, INITIAL ENCOUNTER SNOMED Code(s): 79768687265399389 Plan: 1patient with a left great toe gangrene in this patient who did have a history of peripheral arterial disease and did have previous amputation of his toes now with a nonhealing wound and discoloration on the left big toe and concerning for secondary cellulitis x-rays were suspicious for gas-forming pathogen 2-blood cultures have been obtained as well as local culture at the time of surgery, which are currently growing Citrobacter Alcaligenes species and anaerobe 3patient to continue with Zosyn, PICC line has been ordered for outpatient antibiotic patient will need at least 4 to 6 weeks of IV antibiotics and close outpatient follow-up Dictation was produced using [employer] software. please excuse any grammatical, word or spelling errors. Time with Patient: Less than 30
--- NOTE | 2023-09-25 14:14 | P.PN ---
Subjective Progress Note Date: 09/25/23 Principal diagnosis: Gas gangrene left great toe Patient seen and examined as a follow up. No acute changes. Plan for discharge today or tomorrow. Been afebrile. Remains on IV antibiotics. Objective - Vital Signs Vital signs: Vital Signs Temp 98.2 F 09/25/23 07:29 Pulse 112 H 09/25/23 07:29 Resp 18 09/25/23 07:29 BP 133/67 09/25/23 07:29 Pulse Ox 90 L 09/25/23 07:29 FiO2 Intake & Output 09/24/23 09/25/23 09/25/23 18:59 06:59 18:59 Intake Total 310 700 Output Total 1625 Balance -1315 700 Intake: Intake, IV Titration 100 Amount Piperacillin-Tazobactam 3 100 .375 gm In Sodium Chloride 0.9% 100 ml @ 25 mls/hr IVPB Q8H [facility] Rx#: [id number] Oral 600 Blood Product 310 Rc As-1 Unit 310 [id number] Output: Urine 1625 Other: Voiding Method Bedside Commode Bedside Commode Urinal Urinal # Voids 1 3 # Bowel Movements 1 - Exam General appearance: The patient is alert, oriented, appears in no acute distress. HET: Head is normocephalic and atraumatic. Pupils are equal and reactive. Neck: Supple. Heart: Regular. Lungs: Equal expansion, normal respiratory effort. Diminished bilaterally. Abdomen: Soft, nontender, nondistended. Extremities: Left foot with dressing clean dry and intact. Dressing changed, good granulation noted. No active bleeding. Neurological: No focal deficits. Strength and sensation are grossly intact. - Labs CBC & Chem 7: 09/25/23 09:16 09/25/23 09:16 Labs: Abnormal Lab Results - Last 24 Hours (Table) 09/24/23 09/24/23 Range/Units 06:49 12:38 WBC 10.86 H (4.50-10.00) X 10*3/uL RBC 2.57 L (4.40-5.60) X 10*6/uL Hgb 6.8 A* (13.0-17.0) g/dL Hct 21.9 L (39.6-50.0) % MCH 26.5 L (27.0-32.0) pg MCHC 31.1 L (32.0-37.0) g/dL RDW 15.8 H (11.5-14.5) % MPV 9.1 L (9.5-12.2) FL Neutrophils # 9.11 H (1.80-7.70) X 10*3/uL Lymphocytes # 0.27 L (0.90-5.00) X 10*3/uL Monocytes # 1.27 H (0.20-1.00) X 10*3/uL Crossmatch See Detail Microbiology - Last 24 Hours (Table) 09/20/23 14:24 Gram Stain - Final Toe - Left First Wound Culture - Final Alcaligen. faecalis Citrobacter braakii 09/19/23 21:37 Blood Culture - Final Blood 09/20/23 14:24 Anaerobic Culture - Final Toe - Left First Anaerobic Gm Negative Bacilli Assessment and Plan Assessment: 1. Wet gangrene left great toe with subcutaneous gas status post amputation 2. Peripheral arterial disease 3. Shortness of breath, cough 4. Previous second and third toe amputation 5. Chronic wound to left foot 6. Abdominal aortic aneurysm 7. Coronary artery disease status post CABG 8. Anemia 9. History of GI bleed 10. Hypertension 11. Alcohol abuse 12. Nicotine dependence Plan: 1. Patient is status post left great toe amputation 2. Daily wet-to-dry dressing changes 3. Continue with recommendations from infectious disease 4. Discussed with patient importance of smoking cessation and alcohol abstinence 5. As of Now plan will be to do abdominal aortic repair and endograft as scheduled October 05 to allow infection to clear 6. Patient is cleared from vascular surgery for discharge 7. The rest of medical management per primary medical team Thank you for this consultation, we will continue to follow. The impression and plan of care has been dictated as directed. Dr. Padilla I performed a history and examination of this patient, discussed the same with the dictator. I agree with the dictator's note ,documented as a scribe. Any additional findings or plans will be noted.
--- NOTE | 2023-09-25 14:22 | P.DS ---
Providers Date of admission: 09/20/23 01:19 Expected date of discharge: 09/25/23 Attending physician: Yusuf Lisa MD Consults: 09/20/23 01:19 Consult Physician Routine Consulting Provider: Jojo Reyna Consult Reason/Comments: Ischemic toe Do you want consulting provider notified?: Yes 09/20/23 10:35 Consult Physician Urgent Consulting Provider: Salima Galo Consult Reason/Comments: WET GANGRENE, OSTEO WITH GAS FORMATION Do you want consulting provider notified?: Yes 09/20/23 12:34 Consult Physician Routine Consulting Provider: Margarito Kelly Consult Reason/Comments: hypoxia Do you want consulting provider notified?: Yes 09/24/23 08:55 Consult Physician Routine Consulting Provider: Jake Alexis Consult Reason/Comments: CHF Do you want consulting provider notified?: Yes Primary care physician: Maggy Siegel [facility] Course: Final Diagnoses: Left great toe,wet gangrene with subcutaneouos gas, in a patient with history of PAD, follows with the wound care center secondary to chronic left foot wound with prior second and third toe amputation. Status post left great toe amputation. Wound cultures reporting gram-negative bacilli, Citrobacter b raakii. Acute on Chronic CHF, systolic dysfunction, EF 35%. Ischemic cardiomyopathy Aortic stenosis Acute hypoxic respiratory failure, multifactorial secondary to all the above possible community-acquired bacterial pneumonia. Hyponatremia Chronic Anemia History of GI bleed Abdominal aortic region infrarenal, up to 5.9 cm Right inguinal hernia containing loop of cecum reported per CTA runoff 08/02 New right Kidney exophytic mass medially, 2.3 cm, concerning for renal cell Ca reported per CTA runoff 08/01/23, further workup outpatient. Coronary disease with history of CABG Hypertension Hyperlipidemia Nicotine dependence Daily alcohol use Marijuana use Hospital course:This is a 73-year-old gentleman with past medical history significant for chronic left foot wound, left foot second and third toe amputations,follows with [facility] care [facility], PAD, infrarenal AAA, CAD, CABG, GI bleed, anemia, herniated disc, hypertension, hyperlipidemia, nicotine dependence, daily alcohol use-reports 2X 12 ounce beers daily, and multiple other medical issues reports he was directed by the wound care center to proceed to the ER related to increased wound drainage. Patient missed his wound care appointment on Sunday, phoned into the wound care center to report worsening appearance, drainage, pain of his left foot/great toe. Complains of new onset of shortness of breath, congested cough. Denies chest pain, palpitations. Denies fever,chills or sweats. Denies body aches. Patient is a vague historian. Chest x-ray reported -correlate for COPD with superimposed CHF and pulmonary vascular congestion along with trace effusions, atypical pneumonia would be alternative consideration. Recent CTA abdomen aorta with runoff completed on 08/02 reported: New right kidney exophytic mass medially measuring up to 2.3 cm concerning for renal cell carcinoma. No evidence of lymph adenopathy.Occlusion of the left super fascial femoral artery with reconstitution near the vessels of the legs with 2 vessels crossing the ankle and the left.Severe arthrosclerosis of the right SFA with multiple areas of occlusion with reconstitution at the popliteal artery and with at least one vessel posterior tibial artery crossing the ankle. The anterior tibial artery on the right appears occluded. Infrarenal abdominal aorta fusiform dilation up to 5.9 cm. (Patient is scheduled for endograft on 10/05/[address]illa[address] Right inguinal hernia containing loop of cecum. Colonic diverticulosis. Left toe x-ray reported subcutaneous gas with possible early osteophyte involving the first digit proximal phalanx and metatarsal head. Postsurgical changes to the second and third digit without definitive osteomyelitis.Afebrile, WBC 14.8, hemoglobin 8, platelets 495, MCV 87.8. Sodium 132, potassium 4.4, bicarb 24, BUN 9, creatinine 0.44, glucose 104, lactic acid 1, alk phos 134, CRP 12.5. Maintaining O2 sats above 90% on 3 L nasal cannula. Covid testing in progress. Anticoagulation with heparin drip initiated in the ER. 09/21/2023 Respiratory status significantly improved. Denies chest pain, palpitations or shortness of breath, maintaining O2 sats of high 90s on 2 L nasal cannula. Reports minimal productive cough. Maintained on Unasyn and vancomycin . Blood and wound/deep Cultures pending .status post left great toe amputation with second and third toe amputation revision. Tolerated procedure well. Reports surgical pain site. Afebrile, WBC 14.2, Hemoglobin 7.2, platelets 366, sodium 1:30, BUN 12, creatinine 0.47. C-reactive protein 13.6, pro calcitonin 0.04. Covid not detected. Echo completed, report pending. 09/24/2023 Wound cultures reporting gram-negative bacilli, Citrobacter braakii. Antibiotics adjusted yesterday to Zosyn. afebrile. Renal function stable.Echo cardiogram reported moderate to severe LV dysfunction with EF 35% basal inferior wall akinetic, anterio-septum and hypokinetic, mild mitral regurgitation, mild aortic stenosis .maintained on IV push Lasix, nebulized bronchodilators with breathing significantly improved, and O2 sats in the high 90s on room air. Significant clinical improvement. Evaluated by cardiology with recommendations noted including continuing Lasix,initiation of coreg in addition to his home meds of Aldactone, lisinopril and atorvastatin. Cultures growing Citrobacter Alcaligenes species and anerobe. We'll, T-max 99, WBC normalized at 9.2. Renal function stable. Status post transfusion of packed RBCs yesterday with hemoglobin up to 8.6, platelets 342. Potassium and magnesium receiving supplementation today with follow-up levels ordered. Patient has been cleared by infectious disease for discharge, PICC line ordered. Received clearance for discharge from cardiology as well. Patient will either be discharged to subacute rehab or home with home care , in a stable condition with guarded prognosis ,pending arrangement of IV antibiotics and PICC line placement as recommended per ID. The impression and plan of care has been dictated as directed. : I performed a history and examination of this patient, discussed the same with the dictator. I agree with the dictator's note ,documented as a scribe. Any additional findings or plans will be noted. Patient Condition at Discharge: Stable Plan - Discharge Summary Discharge Rx Participant: No New Discharge Prescriptions: New Aspirin 81 mg PO DAILY tab Multivitamins, Thera [Multivitamin (formulary)] 1 each PO DAILY tab Acetaminophen Tab [Tylenol] 650 mg PO Q6HR PRN tab PRN Reason: Mild Pain Or Fever > 100.5 Piperacillin-Tazobactam [Zosyn] 3.375 gm IVPB Q8HR #120 each carvediloL [Coreg] 6.25 mg PO BID-W/MEALS tab Ipratropium-Albuterol Nebulize [Duoneb 0.5 mg-3 mg/3 ml Soln] 3 ml INHALATION RT-QID each Ipratropium-Albuterol Nebulize [Duoneb 0.5 mg-3 mg/3 ml Soln] 3 ml INHALATION Q4H PRN each PRN Reason: Shortness Of Breath Or Wheezing Folic Acid 1 mg PO DAILY tab Nicotine 21Mg/24Hr Patch [Habitrol] 1 patch TRANSDERM DAILY patch Furosemide [Lasix] 40 mg PO DAILY #30 tablet polyethylene glycoL 3350 [Miralax] 17 gm PO DAILY packet HYDROcodone/APAP 5-325MG [[place] 5-325] 1 each PO Q6H PRN #12 tab PRN Reason: Pain Thiamine [Vitamin B-1] 100 mg PO DAILY tab Magnesium Citrate and Oxide [Magnesium] 500 mg PO DAILY #30 cap Continue Clopidogrel [Plavix] 75 mg PO DAILY #30 tab lisinopriL [Zestril] 2.5 mg PO HS #30 tab Montelukast [Singulair] 10 mg PO HS #30 tab Loratadine [Claritin] 10 mg PO DAILY Atorvastatin [Lipitor] 80 mg PO HS Gabapentin 600 mg PO TID #9 tab Omeprazole [PriLOSEC] 20 mg PO AC-BID Spironolactone [Aldactone] 25 mg PO DAILY Discontinued SILVER sulfADIAZINE Cream [Silvadene 1% Cream] 1 applic TOPICAL BID HYDROcodone/APAP 7.5-325MG [[place] 7.5-325] 1 tab PO BID PRN PRN Reason: Pain Discharge Medication List Clopidogrel [Plavix] 75 mg PO DAILY #30 tab 02/22/16 [Rx] Montelukast [Singulair] 10 mg PO HS #30 tab 02/22/16 [Rx] lisinopriL [Zestril] 2.5 mg PO HS #30 tab 02/22/16 [Rx] Loratadine [Claritin] 10 mg PO DAILY 09/08/20 [History] Atorvastatin [Lipitor] 80 mg PO HS 09/20/23 [History] Omeprazole [PriLOSEC] 20 mg PO AC-BID 09/20/23 [History] Spironolactone [Aldactone] 25 mg PO DAILY 09/20/23 [History] Acetaminophen Tab [Tylenol] 650 mg PO Q6HR PRN tab 09/25/23 [Rx] Aspirin 81 mg PO DAILY tab 09/25/23 [Rx] Folic Acid 1 mg PO DAILY tab 09/25/23 [Rx] Furosemide [Lasix] 40 mg PO DAILY #30 tablet 09/25/23 [Rx] Gabapentin 600 mg PO TID #9 tab 09/25/23 [Rx] HYDROcodone/APAP 5-325MG [[place] 5-325] 1 each PO Q6H PRN #12 tab 09/25/23 [Rx] Ipratropium-Albuterol Nebulize [Duoneb 0.5 mg-3 mg/3 ml Soln] 3 ml INHALATION Q4H PRN each 09/25/23 [Rx] Ipratropium-Albuterol Nebulize [Duoneb 0.5 mg-3 mg/3 ml Soln] 3 ml INHALATION RT-QID each 09/25/23 [Rx] Magnesium Citrate and Oxide [Magnesium] 500 mg PO DAILY #30 cap 09/25/23 [Rx] Multivitamins, Thera [Multivitamin (formulary)] 1 each PO DAILY tab 09/25/23 [Rx] Nicotine 21Mg/24Hr Patch [Habitrol] 1 patch TRANSDERM DAILY patch 09/25/23 [Rx] Piperacillin-Tazobactam [Zosyn] 3.375 gm IVPB Q8HR #120 each 09/25/23 [Rx] Thiamine [Vitamin B-1] 100 mg PO DAILY tab 09/25/23 [Rx] carvediloL [Coreg] 6.25 mg PO BID-W/MEALS tab 09/25/23 [Rx] polyethylene glycoL 3350 [Miralax] 17 gm PO DAILY packet 09/25/23 [Rx] Follow up Appointment(s)/Referral(s): Jaclyn Oquendo NPC [Nurse Practitioner] - 1 Week (Wound care center) Jojo Myers PAC [Family Provider] - 1 Week (After DC from subacute rehab) [facility], [NON-STAFF] - 1 Week [facility], [REFERRING] - 1 Week Salima Galo MD [STAFF PHYSICIAN] - 2 Weeks Ambulatory/Diagnostic Orders: Basic Metabolic Panel [LAB.AMB] Location: None Selected C Reactive Protein [LAB.AMB] Location: None Selected Complete Blood Count w/diff [LAB.AMB] Location: None Selected Erythrocyte Sedimentation Rate [LAB.AMB] Location: None Selected Patient Instructions/Handouts: Seizure/Epilepsy Discharge Instructions & Follow-Up Activity/Diet/Wound Care/Special Instructions: Patient will be discharged home with home care. Patient recently had gabapentin and norcos prescribed OP and can resume using those. CBC,,BMP in 3 days Wound care: Discharge Disposition: TRANSFER TO SNF/ECF
[2023-09-25] MEDS: MAGNESIUM SULFATE-D5W PMX 1 GM in DEXTROSE/WATER 1 100ML.BAG IVPB SCH ×2 (15:05→16:33)
[2023-09-25] MEDS ORDERED: ATORVASTATIN 80 MG TAB PO SCH (21:00)
[2023-09-26] MEDS: PIPERACILLIN-TAZOBACTAM 3.375 GM in SODIUM CHLORIDE 0.9% 100 ML IVPB SCH ×2 (01:24→11:57)
[2023-09-26] MEDS: HYDROcodone/APAP 5-325MG 1 EACH TAB PO PRN ×3 (01:26→12:00)
[2023-09-26] MEDS: IPRATROPIUM-ALBUTEROL 3 ML NEB INHALATION SCH ×3 (07:13→14:59)
[2023-09-26 07:57] VITALS: RESP 18
[2023-09-26] MEDS: NICOTINE 21MG/24HR PATCH TRANSDERM SCH (07:59)
[2023-09-26] MEDS: SPIRONOLACTONE 25 MG TAB PO SCH (07:59)
[2023-09-26] MEDS: HEPARIN SODIUM,PORCINE 5,000 UNIT/ML 1 ML VIAL SQ SCH (07:59)
[2023-09-26] MEDS: FUROSEMIDE 10 MG/ML 4 ML VIAL IV SCH (07:59)
[2023-09-26] MEDS: FOLIC ACID 1 MG TAB PO SCH (07:59)
[2023-09-26] MEDS: PANTOPRAZOLE 40 MG/10 ML VIAL IVP SCH (07:59)
[2023-09-26] MEDS: MULTIVITAMINS, THERA 1 EACH TAB PO SCH (07:59)
[2023-09-26] MEDS: THIAMINE 100 MG TAB PO SCH (07:59)
[2023-09-26] MEDS: guaiFENesin 600 MG TABLET.ER PO SCH (07:59)
[2023-09-26] MEDS: carvediloL 6.25 MG TAB PO SCH ×2 (07:59→17:05)
[2023-09-26] MEDS: polyethylene glycoL 3350 17 GM POWD.PACK PO SCH (07:59)
[2023-09-26] MEDS: ASPIRIN 81 MG PO SCH (07:59)
[2023-09-26] MEDS ORDERED: FUROSEMIDE 40 MG TAB PO SCH (09:00)
--- NOTE | 2023-09-26 09:54 | P.PN ---
Subjective HISTORY OF PRESENT ILLNESS: This is a 73-year-old male with a past medical history significant for coronary artery disease with previous CABG, peripheral arterial disease, ischemic cardiomyopathy, valvular heart disease, hypertension, hyperlipidemia, alcohol use, and nicotine dependence. Patient follows in the office with Dr. Hoffman. We have been asked to see the patient in consultation for congestive heart failure. Patient is status post left great toe amputation and revision of second and third toe amputation secondary to gangrene. Patient examined this morning. He is sitting on the side of the bed. He denies chest pain or pressure. He reports very mild shortness of breath. Vital signs are stable. He is mildly tachycardic with heart rate around 110. None of his home medications have been resumed at the time of examination. * EKG reveals sinus tachycardia with no signs of acute ischemia * Chest xray increased lung markings correlate for pulmonary edema. Some infiltrate such as pneumonia or atelectasis may be at the base of the right upper lobe. Minimal left pleural effusion. * Echocardiogram obtained this admission reveals ejection fraction 35-40%, aortic valve not well visualized, there appears to be at least moderate calcification, trace TR, mild aortic stenosis September 26 2023 Patient examined this morning. Patient is sitting on the side of the bed eating breakfast. Patient denies chest pain or pressure. He denies shortness of breath. Vital signs are stable. PHYSICAL EXAM: VITAL SIGNS: Reviewed. GENERAL: Well-developed in no acute distress. HEENT: Head is normocephalic. Pupils are equal, round. Sclerae anicteric. Mucous membranes of the mouth are moist. Neck supple. No JVD or thyromegaly LUNGS: Respirations even and unlabored. Lungs with decreased air exchange HEART: Regular rate and rhythm. S1 and S2 heard. Systolic murmur noted. ABDOMEN: Soft. Nondistended. Nontender. EXTREMITIES: Normal range of motion. No clubbing or cyanosis. Peripheral pulses intact. Dressing noted to left foot NEUROLOGIC: Awake and alert. Oriented x 3. ASSESSMENT: Wet gangrene, status post left great toe amputation Coronary artery disease with previous CABG Acute on chronic heart failure with reduced ejection fraction Abdominal aortic aneurysm Peripheral arterial disease Ischemic cardiomyopathy Valvular heart disease Hypertension Hyperlipidemia Alcohol abuse Nicotine dependence PLAN: Discontinue IV Lasix Begin oral Lasix 40 mg daily Continue additional cardiac medications Patient is stable for discharge today from a cardiac standpoint Will follow up on an as-needed basis. Please call if questions or concerns Nurse practitioner note has been reviewed by physician. Signing provider agrees with the documented findings, assessment, and plan of care. Objective - Vital Signs Vital signs: Vital Signs Temp 98.1 F 09/26/23 07:28 Pulse 96 09/26/23 07:28 Resp 18 09/26/23 07:28 BP 145/74 09/26/23 07:28 Pulse Ox 94 L 09/26/23 07:28 FiO2 Intake & Output 09/25/23 09/26/23 09/26/23 18:59 06:59 18:59 Intake Total 400 240 Balance 400 240 Intake: Intake, IV Titration 400 Amount Magnesium Sulfate-D5w Pmx 200 1 gm In Dextrose/Water 1 100ml.bag @ 100 mls/hr IVPB Q1H [facility] Rx#: [id number] Piperacillin-Tazobactam 3 200 .375 gm In Sodium Chloride 0.9% 100 ml @ 25 mls/hr IVPB Q8H [facility] Rx#: [id number] Oral 240 Other: Voiding Method Bedside Commode Urinal # Voids 5 3 - Labs CBC & Chem 7: 09/25/23 09:16 09/25/23 16:32 Labs: Abnormal Lab Results - Last 24 Hours (Table) 09/25/23 09/25/23 Range/Units 09:16 09:16 Sodium 134 L (137-145) mmol/L Potassium 3.1 L (3.5-5.1) mmol/L Chloride 96 L (98-107) mmol/L Carbon Dioxide 32 H (22-30) mmol/L BUN 8 L (9-20) mg/dL Creatinine 0.48 L (0.66-1.25) mg/dL Magnesium 1.4 L (1.6-2.3) mg/dL Microbiology - Last 24 Hours (Table) 09/20/23 14:24 Gram Stain - Final Toe - Left First Wound Culture - Final Alcaligen. faecalis Citrobacter braakii 09/19/23 21:37 Blood Culture - Final Blood
[2023-09-26 12:11] VITALS: BP 120/71; TEMP 98.7
[2023-09-26 14:35] VITALS: BMI 24.3
[2023-09-26 15:23] VITALS: PULSE 80
[2023-09-26] MEDS ORDERED: LIDOCAINE 1% INJ 10MG/ML (30 ML VIAL-PF) SQ ONE (16:18)
[2023-09-26] MEDS ORDERED: IOPAMIDOL-370 100ML BTL INJ ONE (16:28)
--- NOTE | 2023-09-26 16:35 | P.OP ---
Date of Procedure: 09/26/23 Description of Procedure: Preoperative Diagnosis: Need for long-term IV antibiotic access. Postoperative Diagnosis: Same. Procedure(s) Performed: Ultrasound-guided cannulation right cephalic vein. Venogram right upper extremity with interpretation Insertion of peripherally inserted central catheter under fluoroscopic guidance. Anesthesia: local 1% lidocaine plain Surgeon: Axel Estimated Blood Loss (ml): 5 IV fluids (ml): 0 Urine output (ml): 0 Pathology: none sent Condition: stable Disposition: no change Indications for Procedure: Patient requires long-term IV antibiotics as an outpatient patient is offered a PICC line to allow for intravenous administration of antibiotics. Description of Procedure: Patient was brought to the special procedure suite. The right upper extremity sterilely prepped and draped in usual manner. Ultrasound was utilized to identify the cephalic vein which was normally compressible free of visible thrombus. Permenant image was stored. 1% Xylocaine was utilized for local anesthesia tissues overlying the vein. Through this anesthetized area and with the aid of ultrasound a micropuncture needle was utilized to cannulate the vein. Once cannulated, Softip guidewire was advanced into the vein. The needle was withdrawn and a micropuncture sheath and dilator advanced over the guidewire. The guidewire itself had difficulty in advancing beyond the area of the axilla therefore a venogram was performed showing normal patency inflow from the cephalic vein into the subclavian vein without any obvious areas of obstruction. Maneuvers were performed and the guidewire was guided down into the cavoatrial junction. The guidewire was withdrawn and exchanged for the PICC guidewire and measured 40 cm to the cavoatrial junction. The catheter was cut to size and advanced into the cavoatrial junction without resistance. The sheath was peeled away. Blood was easily withdrawn through the catheter and the catheter was then flushed with heparinized saline solution and secured to the skin. Patient tolerated procedure well and was returned to their room in satisfactory and stable condition.
--- NOTE | 2023-09-26 17:30 | P.PN ---
Subjective Progress Note Date: 09/26/23 Principal diagnosis: Reason for follow-up is left big toe gas gangrene and left foot cellulitis Patient is a 73-year-old male with a past medical history significant for coronary disease hypertension hyperlipidemia heart failure did have peripheral arterial disease and previous amputation of left second and third toe presented to hospital with gas gangrene of his left big toe in this patient was status post amputation of the left big toe and revision of the second and third toe ray amputation. On today's evaluation that is 09/26/2023, the patient continues to be afebrile patient is breathing comfortably on room air, no need for supplemental oxygen, patient denies any chest pain or cough no nausea no vomiting and no diarrhea has been reported the patient denies pain to the left foot Patient did have white count 9.2 creatinine is 0.48 as of yesterday no lab draw today, cultures currently growing Citrobacter Alcaligenes species and anaerobe Objective - Vital Signs Vital signs: Vital Signs Temp 98.1 F 09/26/23 07:28 Pulse 96 09/26/23 07:28 Resp 18 09/26/23 07:28 BP 145/74 09/26/23 07:28 Pulse Ox 94 L 09/26/23 07:28 FiO2 Intake & Output 09/25/23 09/26/23 09/26/23 18:59 06:59 18:59 Intake Total 400 240 Balance 400 240 Intake: Intake, IV Titration 400 Amount Magnesium Sulfate-D5w Pmx 200 1 gm In Dextrose/Water 1 100ml.bag @ 100 mls/hr IVPB Q1H [facility] Rx#: [id number] Piperacillin-Tazobactam 3 200 .375 gm In Sodium Chloride 0.9% 100 ml @ 25 mls/hr IVPB Q8H [facility] Rx#: [id number] Oral 240 Other: Voiding Method Bedside Commode Urinal # Voids 5 3 - Exam GENERAL DESCRIPTION: An elderly male lying in bed in no distress RESPIRATORY SYSTEM: Unlabored breathing , decreased breath sounds at bases HEART: S1 S2 regular rate and rhythm , ABDOMEN: Soft , no tenderness EXTREMITIES: Left foot is currently dressed no drainage on the dressing - Labs CBC & Chem 7: 09/25/23 09:16 09/25/23 16:32 Labs: Abnormal Lab Results - Last 24 Hours (Table) 09/25/23 Range/Units 09:16 Magnesium 1.4 L (1.6-2.3) mg/dL Microbiology - Last 24 Hours (Table) 09/20/23 14:24 Gram Stain - Final Toe - Left First Wound Culture - Final Alcaligen. faecalis Citrobacter braakii Assessment and Plan (1) Gas gangrene Current Visit: Yes Status: Acute Code(s): A48.0 - GAS GANGRENE SNOMED Code(s): 96326391 (2) Ischemic toe Current Visit: Yes Status: Acute Code(s): I99.8 - OTHER DISORDER OF CIRCULATORY SYSTEM SNOMED Code(s): 572586508 (3) Wound of left foot Current Visit: Yes Status: Acute Code(s): S91.302A - UNSPECIFIED OPEN WOUND, LEFT FOOT, INITIAL ENCOUNTER SNOMED Code(s): 90234534218083944 Plan: 1patient with a left great toe gangrene in this patient who did have a history of peripheral arterial disease and did have previous amputation of his toes now with a nonhealing wound and discoloration on the left big toe and concerning for secondary cellulitis x-rays were suspicious for gas-forming pathogen 2-blood cultures have been obtained as well as local culture at the time of surgery, which are currently growing Citrobacter Alcaligenes species and anaerobe 3patient is currently waiting for PICC line placement and outpatient IV antibiotics 4continue with the Zosyn 3.375 g every 8 hours for 6 weeks and close outpatient follow-up, prescription provided to the case packer Dictation was produced using [employer] dictation software. please excuse any grammatical, word or spelling errors. Time with Patient: Less than 30
--- NOTE | 2023-09-27 20:50 | CDI ---
Documentation Clarification Form Date: 09/27/2023 08:39:55 PM From: Sandra Cornejo Phone: Admit Date: 09/20/2023 01:19:00 AM Patient Name: Temo Garcia Visit Number: [id number] Discharge Date: 09/26/2023 05:48:00 PM ATTENTION: The Clinical Documentation Specialists (CDI) and [facility] Coding Staff appreciate your assistance in clarifying documentation. Please respond to the clarification below the line at the bottom and electronically sign. The CDI & [facility] Coding staff will review the response and follow-up if needed. Please note: Queries are made part of the Legal Health Record. If you have any questions, please contact the author of this message via ITS. Dr. Yusuf Lisa Unspecified anemia is documented Consult 09/20. Additional specificity regarding the type and acuity of anemia is requested. History/Risk Factors: 73yo M, PAD w wet gangrene, ACSHF, ICM , , AHRF, bacterial PNA, hyponatremia, Hx GIB, kidney mass, AAA, CAD w CABG, HTN, HLD, smoker, Citrobacter braakii Clinical indicators: Hemoglobin: 09/19 7.8 09/20 8.00 09/21 7.2 09/22 7.9 09/24 6.8 Hematocrit: 09/19 24.3 09/20 26.0 09/21 22.7 09/22 24.5 09/24 21.9 Treatment: 1u PRBC 09/20 and 09/24 Please clarify the type and acuity of anemia: [ X ] Acute blood loss anemia [X ] Present on Admission [ ] Not Present on Admission [ ] Acute on chronic blood loss anemia [ ] Chronic blood loss anemia [ ] Anemia due to malignancy [ ] Unable to determine [ ] Other, please specify (Template Last Revised: October 2020) MTDD
== END 2023-09-26 17:48 | disposition home health service (06) | DRG 853 ==
LOC: EC 14:54 → 4SSUR 09-20 01:19 → 1SOBS 09-20 07:38 → 5NMEDONC 09-21 17:47
PROVIDERS: ADMIT Family Medicine; ATTEND Family Medicine
PROC: 30233N1 Transfusion of Nonautologous Red Blood Cells into Peripheral Vein, Percutaneous Approach (ICD-10-PCS; 2023-09-20)
PROC: 0Y6Q0Z0 Detachment at Left 1st Toe, Complete, Open Approach (ICD-10-PCS; principal; 2023-09-20 16:25)
PROC: 02HV33Z Insertion of Infusion Device into Superior Vena Cava, Percutaneous Approach (ICD-10-PCS; 2023-09-26)
DX: A48.0 Gas gangrene (principal); I50.23 Acute on chronic systolic (congestive) heart failure; J96.01 Acute respiratory failure with hypoxia; J15.9 Unspecified bacterial pneumonia; I70.262 Atherosclerosis of native arteries of extremities with gangrene, left leg; E87.1 Hypo-osmolality and hyponatremia; L03.116 Cellulitis of left lower limb; D62 Acute posthemorrhagic anemia; I11.0 Hypertensive heart disease with heart failure; J44.9 Chronic obstructive pulmonary disease, unspecified; I71.43 Infrarenal abdominal aortic aneurysm, without rupture; I35.0 Nonrheumatic aortic (valve) stenosis; F10.10 Alcohol abuse, uncomplicated; I25.10 Atherosclerotic heart disease of native coronary artery without angina pectoris; E78.5 Hyperlipidemia, unspecified; F17.210 Nicotine dependence, cigarettes, uncomplicated; N28.89 Other specified disorders of kidney and ureter; K40.90 Unilateral inguinal hernia, without obstruction or gangrene, not specified as recurrent; K57.30 Diverticulosis of large intestine without perforation or abscess without bleeding; M25.775 Osteophyte, left foot; I25.5 Ischemic cardiomyopathy; B96.89 Other specified bacterial agents as the cause of diseases classified elsewhere; G62.9 Polyneuropathy, unspecified; Z89.422 Acquired absence of other left toe(s); Z95.1 Presence of aortocoronary bypass graft; Z79.02 Long term (current) use of antithrombotics/antiplatelets; Z79.82 Long term (current) use of aspirin; Z82.49 Family history of ischemic heart disease and other diseases of the circulatory system; Z11.52 Encounter for screening for COVID-19; Z87.19 Personal history of other diseases of the digestive system; Z79.899 Other long term (current) drug therapy
CPT/HCPCS: 36415; 36573; 71045; 71046; 80048; 80053; 80202; 82565; 83605; 83735; 84132; 84145; 85025; 85027; 85652; 85730; 86140; 86850; 86900; 86901; 86920; 87040; 87070; 87075; 87077; 87186; 87205; 87635; 93005; 93306; 94640; 94760; 96361; 96365; 96366; 99284

== ENCOUNTER 2023-10-05 09:42 | Inpatient (IN) | payer MEDICARE ==
[~2023-10-05 09:42] MED LIST: ALPRAZolam 0.25 MG TAB PO PRN; SODIUM CHLORIDE 0.9% 1,000 ML in EMPTY BAG 1 BAG IV ONE; ZOLPIDEM 5 MG TAB PO PRN
[2023-10-05] MEDS ORDERED: HYDROmorphone 0.5 MG/0.5 ML SYRINGE IVP ONE (10:47)
[2023-10-05] MEDS ORDERED: MIDAZOLAM 2 MG/2 ML VIAL IVP ONE (10:56)
[2023-10-05] MEDS ORDERED: MIDAZOLAM 2 MG/2 ML VIAL ONE (11:51)
[2023-10-05] MEDS ORDERED: PROPOFOL 10 MG/ML 20 ML VIAL IV ONE (11:51)
[2023-10-05] MEDS ORDERED: PROTAMINE SULFATE 10 MG/ML 5 ML VIAL ONE (11:51)
[2023-10-05] MEDS ORDERED: fentaNYL (PF) 50 MCG/ML 2 ML AMP ONE (11:51)
[2023-10-05] MEDS ORDERED: HEPARIN SODIUM,PORCINE 10,000 UNIT/ML 1 ML VIAL ONE (11:51)
[2023-10-05] MEDS ORDERED: KETAMINE HCL IN 0.9 % NACL 50 MG/5 ML SYRINGE ONE (11:51)
[2023-10-05] MEDS: LIDOCAINE 1% INJ 10MG/ML (20 ML MDV) SQ ONE ×2 (12:23→12:51)
--- NOTE | 2023-10-05 13:18 | P.ANPRN ---
Procedure Note - Anesthesia - Invasive Line Right Arterial Line Time Out Performed: Yes Date of Procedure: 10/05/23 Location of Patient: PreOp Preparation: Sterile Prep, Sterile Dressing Arterial Line Location: Radial Ultrasound Used: No Purpose - Visualization and Identification of Vasculature: No Narrative: Central line placement per sterile protocol utilized.Informed consent obtained from the patient. Procedure was performed under complete aseptic precautions. The right wrist is slightly extended and placed on a roll of cloth. Radial artery palpated and appeared to have a intact collateral circulation. Front of the wrist was cleaned with ChloraPrep. It was draped and 2 mL of 1% lidocaine was infiltrated and ability into the front of the wrist. A 20-gauge two and half inch Arrow arterial catheter was inserted and a bright red blood/back was noticed. It was connected to the pressure monitoring line and the flashback was confirmed. The line was sutured into the skin. Tegaderm dressing was applied. Patient tolerated the procedure very well with no apparent complications. *
[2023-10-05] MEDS ORDERED: IOPAMIDOL-370 100ML BTL INJ ONE ×2 (14:41→14:42)
--- NOTE | 2023-10-05 14:57 | P.OP ---
Description of Procedure: Date: 10/05/2023 Preoperative diagnosis: Asymptomatic 5.9 x 5.7 cm infrarenal abdominal aortic aneurysm, severe iliac calcification with greater than 60% stenosis bilaterally Postoperative diagnosis: Same Procedure: Percutaneous Endovascular aortic repair with AFX II device under ultrasound guided access Percutaneous transluminal balloon angioplasty of the left common iliac, external iliac artery with shockwave 8 x 30 mm balloon Selective bilateral iliofemoral angiogram Percutaneous closure of bilateral common femoral arteries with Perclose on the left and Angio-Seal bilaterally Surgeon: Tay Padilla DO Web User Experience Strategist: none Anesthesia: Local with MAC EBL: 100 cc Complications: None Condition: Stable Disposition: Palpable femoral pulses bilaterally Indication for procedure: 73-year-old gentleman with history of peripheral arterial disease, critical limb ischemia with previous amputation of the left great toe presents to the hospital for repair of an infrarenal AAA measuring 5.9 cm which has increased in size since last visit. He has severe coronary artery disease and per his pediatric social worker was unable to have general anesthesia and therefore sedation was to be performed. He does have severe calcific disease in the femorals as well as the iliac and bilateral SFA occlusion in need of possible bypass versus endovascular intervention. Due to his severe cardiac history he would likely benefit from endovascular if possible. Operative Narrative: After written and informed consent was obtained the patient all risks benefits and complications were described the patient is brought to the Research Physicist and laid in the supine position. The area of the groins were prepped and draped in usual sterile fashion after appropriate anesthetic was performed per the anesthesiologist. A timeout was performed in normal fashion antibiotics were administered prior to accessed. Under ultrasound guidance bilateral common femoral arteries were accessed and utilizing Seldinger technique a 8-Micronesian sheath was placed in the right femoral artery after attempt at placing Perclose was performed without success due to the severe calcification noted in the femoral artery. Due to this attention was then placed to the left common femoral artery and 2 Perclose closure devices were p laced in the left femoral artery followed by an 8-Micronesian sheath. The patient was then administered heparin and followed with serial ACTs for appropriate heparinization. 035 Glidewire was then placed through the 8-Micronesian sheath and replaced with a 018 Glidewire advantage and an 8 mm x 30 mm shockwave balloon was placed at the common iliac artery on the left at the bifurcation and balloon angioplasty with shockwave therapy was performed throughout the common iliac and external iliac artery in normal fashion. Once completed the balloon was removed and an angled glide catheter was placed and stiff Lunderquist wire was placed. 035 guidewire was then placed in the 8-Micronesian sheath followed by pigtail catheter above the renal arteries at approximately L1-L2 vertebra level. Guidewire was removed and aortogram was obtained. The 8-Micronesian sheath was then removed and 19-Micronesian AFX introducer sheath was guided over the stiff wire to the area above the bifurcation. A 28 x 90 mm AFX2 bifurcated device was then guided onto the stiff wire. The contralateral wire was then placed and through the 8-Micronesian sheath it was then snared and brought out to the contralateral 8- Micronesian sheath. The main body of the AFX was then advanced to above the bifurcation in normal fashion and deployed above the bifurcation ultimately then pulled down to the bifurcation. Once main body was deployed attention was then placed to the contralateral limb which was deployed by removing the yellow loop cover. A pigtail catheter was then placed over the wire and the contralateral wire was unlocked with the pigtail catheter. Pigtail catheter was then placed above the renal arteries. The ipsilateral limb was then obtained and the inner core and retracting AFX introducer sheath to deployed the ipsilateral limb. This inner deployment was removed and the obturator was placed and the sheath was then advanced through the above the renal arteries. A 28 x 95 mm suprarenal AFX Navarrete cuff was then deployed beneath the renal arteries once landing zone was visualized. Once completed the deployment sheath was removed and a Q50 balloon was placed through the AFX introducer sheath and the overlap was ballooned. The pigtail catheter was then withdrawn and placed within the Navarrete cuff in usual fashion. Final angiogram was obtained demonstrating good seal with no evidence of endoleak. All guidewires and catheters were then removed and the Perclose closure device was utilized for hemostasis for the ipsilateral femoral artery as well as an 8 Micronesian Angio-Seal. Once completed a selective angiogram was then p erformed demonstrating good seal in the left femoral artery without any evidence of occlusion or leak. An 8 Micronesian Angio-Seal was then placed through the 8- Micronesian sheath on the right for hemostasis in normal fashion. Once hemostatic the areas were then cleansed and dressings were placed. The patient tolerated the procedure well and had palpable femoral pulses at the conclusion of the procedure. He was then sent to PACU for recovery.
[2023-10-05] MEDS ORDERED: NALOXONE 0.4 MG/ML 1 ML VIAL IVP PRN (14:58)
--- NOTE | 2023-10-05 15:34 | IR ---
EXAMINATION TYPE: IR officer captain aorta Intraoperative/procedural fluoroscopic services were provided. CLINICAL INDICATION:Male, 73 years old with history of AAA repair, 30min fluoro, 80.4Gycm2; , [facility] Total fluoroscopy time is 30.0 min. DAP: 36.6 Gycm2 Please see the operative/procedural note for further details.
[2023-10-05 17:09] LABS: Basophils # (A) 0.1 k/uL (0-0.2); Basophils % (A) 0 %; Eosinophils # (A) 0.6 k/uL (0-0.7); Eosinophils % (A) 5 %; HCT 30.3 % (39.0-53.0); HGB 9.5 gm/dL (13.0-17.5); Hypochromasia Marked; Lymphocytes # (A) 0.7 k/uL (1.0-4.8); Lymphocytes % (A) 6 %; MCH 26.8 pg (25.0-35.0); MCHC 31.5 g/dL (31.0-37.0); MCV 84.9 fL (80.0-100.0); Mean Platelet Volume 7.1; Monocytes # (A) 0.9 k/uL (0-1.0); Monocytes % (A) 8 %; Neutrophils # (A) 9.1 k/uL (1.3-7.7); Neutrophils % (A) 78 %; Platelet Count 527 k/uL (150-450); Poikilocytosis Slight; RBC 3.57 m/uL (4.30-5.90); RDW 15.9 % (11.5-15.5); WBC 11.7 k/uL (3.8-10.6)
[2023-10-05] MEDS: PIPERACILLIN-TAZOBACTAM 3.375 GM in SODIUM CHLORIDE 0.9% 100 ML IVPB SCH ×2 (17:32→23:09)
[2023-10-05 17:53] LABS: African American GFR (CKD) >90 (>60 ml/min/1.73 sqM); Anion Gap 7 mmol/L; Blood Urea Nitrogen 10 mg/dL (9-20); Calcium 8.8 mg/dL (8.4-10.2); Carbon Dioxide 26 mmol/L (22-30); Chloride 103 mmol/L (98-107); Glucose 82 mg/dL (74-99); Non-African American GFR(CKD) >90 (>60 ml/min/1.73 sqM); Potassium 3.7 mmol/L (3.5-5.1); Sodium 136 mmol/L (137-145)
[2023-10-05] MEDS ORDERED: ACETAMINOPHEN TAB 325 MG TAB PO PRN (18:46)
[2023-10-05] MEDS ORDERED: polyethylene glycoL 3350 17 GM POWD.PACK PO PRN (18:46)
[2023-10-05] MEDS ORDERED: hydrALAZINE HCL 20 MG/ML 1 ML VIAL IVP STA (18:51)
[2023-10-05] MEDS ORDERED: lisinopriL 10 MG TAB PO STA (18:52)
[2023-10-05] MEDS: MONTELUKAST 10 MG TAB PO SCH (20:55)
[2023-10-05] MEDS: GABAPENTIN 300 MG CAP PO SCH (20:55)
[2023-10-05] MEDS: ATORVASTATIN 80 MG TAB PO SCH (20:55)
[2023-10-05] MEDS: carvediloL 6.25 MG TAB PO SCH (20:56)
[2023-10-05] MEDS: HYDROcodone/APAP 5-325MG 1 EACH TAB PO PRN (21:03)
[2023-10-05 22:36] LABS: Basophils # (A) 0.1 k/uL (0-0.2); Basophils % (A) 0 %; Eosinophils # (A) 0.4 k/uL (0-0.7); Eosinophils % (A) 4 %; HCT 25.9 % (39.0-53.0); HGB 8.2 gm/dL (13.0-17.5); Hypochromasia Marked; Lymphocytes # (A) 0.3 k/uL (1.0-4.8); Lymphocytes % (A) 3 %; MCHC 31.6 g/dL (31.0-37.0); MCV 85.7 fL (80.0-100.0); Mean Platelet Volume 7.2; Monocytes # (A) 0.8 k/uL (0-1.0); Monocytes % (A) 7 %; Neutrophils # (A) 10.3 k/uL (1.3-7.7); Neutrophils % (A) 85 %; Platelet Count 484 k/uL (150-450); Poikilocytosis Slight; RBC 3.02 m/uL (4.30-5.90); RDW 15.9 % (11.5-15.5); WBC 12.2 k/uL (3.8-10.6)
[2023-10-05] MEDS: SODIUM CHLORIDE 0.9% 1,000 ML IV SCH (23:09)
[2023-10-06] MEDS: HYDROcodone/APAP 5-325MG 1 EACH TAB PO PRN ×4 (03:19→21:24)
[2023-10-06] MEDS ORDERED: ZINC OXIDE PASTE (Z-GUARD) 1 APPLIC TOPICAL PRN (05:39)
[2023-10-06] MEDS: PIPERACILLIN-TAZOBACTAM 3.375 GM in SODIUM CHLORIDE 0.9% 100 ML IVPB SCH ×3 (06:27→21:16)
[2023-10-06] MEDS: carvediloL 6.25 MG TAB PO SCH ×2 (06:28→18:12)
[2023-10-06] MEDS: PANTOPRAZOLE 40 MG TABLET PO SCH (06:28)
[2023-10-06] MEDS: SODIUM CHLORIDE 0.9% 1,000 ML IV SCH (06:30)
[2023-10-06 07:01] LABS: Basophils % (A) 0 %; Eosinophils # (A) 0.1 k/uL (0-0.7); Eosinophils % (A) 1 %; HCT 24.2 % (39.0-53.0); HGB 7.6 gm/dL (13.0-17.5); Hypochromasia Marked; Lymphocytes # (A) 0.3 k/uL (1.0-4.8); Lymphocytes % (A) 3 %; MCH 26.7 pg (25.0-35.0); MCHC 31.3 g/dL (31.0-37.0); MCV 85.3 fL (80.0-100.0); Mean Platelet Volume 7.4; Monocytes # (A) 0.7 k/uL (0-1.0); Monocytes % (A) 6 %; Neutrophils # (A) 10.1 k/uL (1.3-7.7); Neutrophils % (A) 88 %; Platelet Count 465 k/uL (150-450); Poikilocytosis Slight; RBC 2.84 m/uL (4.30-5.90); WBC 11.5 k/uL (3.8-10.6)
[2023-10-06 07:16] LABS: African American GFR (CKD) >90 (>60 ml/min/1.73 sqM); Non-African American GFR(CKD) >90 (>60 ml/min/1.73 sqM)
[2023-10-06] MEDS: FUROSEMIDE 40 MG TAB PO SCH (09:37)
[2023-10-06] MEDS: THIAMINE 100 MG TAB PO SCH (09:38)
[2023-10-06] MEDS: SPIRONOLACTONE 25 MG TAB PO SCH (09:38)
[2023-10-06] MEDS: ASPIRIN 81 MG PO SCH (09:38)
[2023-10-06] MEDS: LORATADINE 10 MG TAB PO SCH (09:38)
[2023-10-06] MEDS: CLOPIDOGREL 75 MG TAB PO SCH (09:38)
[2023-10-06] MEDS: GABAPENTIN 300 MG CAP PO SCH ×3 (09:38→21:16)
[2023-10-06] MEDS ORDERED: FUROSEMIDE 10 MG/ML 2 ML VIAL IV PRN (11:45)
[2023-10-06 12:22] LABS: ALT 17 U/L (4-49); AST 19 U/L (17-59); Albumin 2.6 g/dL (3.5-5.0); Alkaline Phosphatase 99 U/L (38-126); Anion Gap 4 mmol/L; Blood Urea Nitrogen 10 mg/dL (9-20); Calcium 8.3 mg/dL (8.4-10.2); Carbon Dioxide 25 mmol/L (22-30); Chloride 107 mmol/L (98-107); Glucose 85 mg/dL (74-99); Potassium 3.4 mmol/L (3.5-5.1); Sodium 136 mmol/L (137-145); Total Bilirubin 0.3 mg/dL (0.2-1.3); Total Protein 5.3 g/dL (6.3-8.2)
--- NOTE | 2023-10-06 12:29 | P.CONS ---
History of Present Illness - Reason for Consult Consult date: 10/06/23 - History of Present Illness History of present illness; patient is a 73-year-old gentleman past medical significant for AAA, peripheral artery disease, left second toe osteomyelitis presented to the hospital for elective endovascular repair of infrarenal abdominal aortic aneurysm. Patient has recent CT abdomen and pelvis done that demonstrated 5.7 x 5.9 cm infrarenal abdominal aortic aneurysm. Patient was being worked up outpatient by vascular surgery and they recommended percutaneous endovascular aortic repair for which patient present to the hospital. Patient tolerated the procedure well. Postoperatively internal medicine team was consulted for medical management REVIEW OF SYSTEMS: CONSTITUTIONAL: No fever, no malaise, no fatigue. HEENT: No recent visual problems or hearing problems. Denied any sore throat. CARDIOVASCULAR: No chest pain, orthopnea, PND, no palpitations, no syncope. PULMONARY: No shortness of breath, no cough, no hemoptysis. GASTROINTESTINAL: No diarrhea, no nausea, no vomiting, no abdominal pain. NEUROLOGICAL: No headaches, no weakness, no numbness. HEMATOLOGICAL: Denies any bleeding or petechiae. GENITOURINARY: Denies any burning micturition, frequency, or urgency. MUSCULOSKELETAL/RHEUMATOLOGICAL: Denies any joint pain, swelling, or any muscle pain. ENDOCRINE: Denies any polyuria or polydipsia. The rest of the 14-point review of systems is negative. PHYSICAL EXAMINATION: GENERAL: The patient is alert and oriented x3, not in any acute distress. Well developed, well nourished. HEENT: Pupils are round and equally reacting to light. EOMI. No scleral icterus. No conjunctival pallor. Normocephalic, atraumatic. No pharyngeal erythema. No thyromegaly. CARDIOVASCULAR: S1 and S2 present. No murmurs, rubs, or gallops. PULMONARY: Chest is clear to auscultation, no wheezing or crackles. ABDOMEN: Soft, nontender, nondistended, normoactive bowel sounds. No palpable organomegaly. MUSCULOSKELETAL: No joint swelling or deformity. EXTREMITIES: No cyanosis, clubbing, or pedal edema. NEUROLOGICAL: Gross neurological examination did not reveal any focal deficits. SKIN: No rashes. Assessment and plan Asymptomatic 5.9 x 5.7 cm infrarenal abdominal aortic aneurysm, severe iliac calcification with greater than 60% stenosis bilaterally s/pPercutaneous Endov ascular aortic repair Percutaneous transluminal balloon angioplasty of the left common iliac, external iliac artery Peripheral arterial disease History of left second toe osteomyelitis Monitor vital signs Monitor CBC Monitor CMP Continue postop care per vascular surgery Continue aspirin, Plavix Continue Coreg, Lasix, lisinopril Encourage ambulation Labs and medication were reviewed.. Continue same treatment. Continue with symptomatic treatment. Resume home medication. Monitor labs and vitals. DVT and GI prophylaxis. Further recommendations as per clinical course of the patient Dictation was produced using [employer] dictation software. please excuse any grammatical, word or spelling errors. Past Medical History Past Medical History: Coronary Artery Disease (CAD), Heart Failure, Hyperlipidemia, Hypertension, Vascular Disorder Additional Past Medical History / Comment(s): aortic aneusrym, herniated disc, peripheral vascular disease Last Myocardial Infarction Date:: 02/2023 History of Any Multi-Drug Resistant Organisms: None Reported Past Surgical History: Appendectomy, Coronary Bypass/CABG, Orthopedic Surgery Additional Past Surgical History / Comment(s): Right rotater cuff repair Past Anesthesia/Blood Transfusion Reactions: No Reported Reaction Past Psychological History: No Psychological Hx Reported Smoking Status: Current some day smoker, Light tobacco smoker Past Alcohol Use History: Daily, Occasional Past Drug Use History: Marijuana - Past Family History Father Family Medical History: Coronary Artery Disease (CAD) Additional Family Medical History / Comment(s): triple bypass Mother Family Medical History: Coronary Artery Disease (CAD), Dementia Medications and Allergies Home Medications Medication Instructions Recorded Confirmed Type Clopidogrel [Plavix] 75 mg PO DAILY #30 tab 02/22/16 10/05/23 Rx Montelukast [Singulair] 10 mg PO HS #30 tab 02/22/16 10/05/23 Rx lisinopriL [Zestril] 2.5 mg PO HS #30 tab 02/22/16 10/05/23 Rx Loratadine [Claritin] 10 mg PO DAILY 09/08/20 10/01/23 History Atorvastatin [Lipitor] 80 mg PO HS 09/20/23 10/05/23 History Omeprazole [PriLOSEC] 20 mg PO AC-BID 09/20/23 10/05/23 History Spironolactone [Aldactone] 25 mg PO DAILY 09/20/23 10/05/23 History Acetaminophen Tab [Tylenol] 650 mg PO Q6HR PRN tab 09/25/23 10/01/23 Rx Folic Acid 1 mg PO DAILY tab 09/25/23 10/05/23 Rx Furosemide [Lasix] 40 mg PO DAILY #30 tablet 09/25/23 10/05/23 Rx Gabapentin 600 mg PO TID #9 tab 09/25/23 10/05/23 Rx HYDROcodone/APAP 5-325MG [Coleman 1 each PO Q6H PRN #12 tab 09/25/23 10/05/23 Rx 5-325] Magnesium Citrate and Oxide 500 mg PO DAILY #30 cap 09/25/23 10/05/23 Rx [Magnesium] Multivitamins, Thera [Multivitamin 1 each PO DAILY tab 09/25/23 10/05/23 Rx (formulary)] Piperacillin-Tazobactam [Zosyn] 3.375 gm IVPB Q8HR #120 each 09/25/23 10/05/23 Rx Thiamine [Vitamin B-1] 100 mg PO DAILY tab 09/25/23 10/05/23 Rx carvediloL [Coreg] 6.25 mg PO BID #60 tablet 09/26/23 10/05/23 Rx polyethylene glycoL 3350 [Miralax] 17 gm PO DAILY PRN 10/05/23 10/01/23 History Allergies Allergy/AdvReac Type Severity Reaction Status Date / Time No Known Allergies Allergy Verified 10/01/23 13:08 Physical Exam Vitals: Vital Signs Temp Pulse Pulse Resp BP BP Pulse Ox 10/06/23 08:44 99 10/06/23 03:08 97.7 F 88 18 127/57 96 10/05/23 23:12 96.8 F L 81 16 109/53 97 10/05/23 20:19 97.0 F L 102 H 18 157/70 97 10/05/23 19:38 101 H 10/05/23 19:37 104 H 17 181/81 98 10/05/23 19:02 103 H 18 183/87 98 10/05/23 18:15 98 16 180/89 98 10/05/23 17:56 101 H 10/05/23 17:45 100 16 177/87 98 10/05/23 17:30 99 16 170/84 99 10/05/23 17:15 98 16 183/83 96 10/05/23 17:08 97 F L 101 H 16 170/81 95 10/05/23 16:15 97 16 178/85 98 10/05/23 16:00 101 H 16 176/84 91 L 10/05/23 15:45 95 16 168/71 100 10/05/23 15:29 93 16 162/60 100 10/05/23 15:14 93 16 155/57 100 10/05/23 14:59 97.6 F 101 H 12 140/52 100 10/05/23 10:13 98.3 F 93 16 158/70 96 Intake and Output 10/05/23 10/06/23 10/06/23 22:59 06:59 14:59 Intake Total 150 1080 240 Output Total 800 Balance -650 1080 240 Intake: IV 150 Oral 1080 240 Output: Urine 800 Other: Voiding Method Urinal Urinal # Voids 1 # Bowel Movements 1 1 1 Results CBC & Chem 7: 10/06/23 05:59 10/06/23 05:59 Labs: Abnormal Lab Results - Last 24 Hours (Table) 10/05/23 10/05/23 10/05/23 Range/Units 16:56 16:56 22:19 WBC 11.7 H 12.2 H (3.8-10.6) k/uL RBC 3.57 L 3.02 L (4.30-5.90) m/uL Hgb 9.5 L 8.2 L (13.0-17.5) gm/dL Hct 30.3 L 25.9 L (39.0-53.0) % RDW 15.9 H 15.9 H (11.5-15.5) % Plt Count 527 H 484 H (150-450) k/uL Neutrophils # 9.1 H 10.3 H (1.3-7.7) k/uL Lymphocytes # 0.7 L 0.3 L (1.0-4.8) k/uL Sodium 136 L (137-145) mmol/L Creatinine 0.58 L (0.66-1.25) mg/dL 10/06/23 10/06/23 Range/Units 05:59 05:59 WBC 11.5 H (3.8-10.6) k/uL RBC 2.84 L (4.30-5.90) m/uL Hgb 7.6 L (13.0-17.5) gm/dL Hct 24.2 L (39.0-53.0) % RDW 16.0 H (11.5-15.5) % Plt Count 465 H (150-450) k/uL Neutrophils # 10.1 H (1.3-7.7) k/uL Lymphocytes # 0.3 L (1.0-4.8) k/uL Sodium (137-145) mmol/L Creatinine 0.59 L (0.66-1.25) mg/dL
--- NOTE | 2023-10-06 12:30 | P.PN ---
Subjective Progress Note Date: 10/06/23 Patient seen and examined. No complaints. Overnight events noted. States he feels fine, no significant pains. Still has mild left lower extremity pain as previous prior to surgery. Objective - Vital Signs Vital signs: Vital Signs Temp 98.5 F 10/06/23 09:30 Pulse 80 10/06/23 09:30 Resp 16 10/06/23 09:30 BP 120/49 10/06/23 09:30 Pulse Ox 99 10/06/23 09:30 FiO2 Intake & Output 10/05/23 10/06/23 10/06/23 18:59 06:59 18:59 Intake Total 750 1080 240 Output Total 800 Balance 750 280 240 Weight 61.7 kg Intake: IV 750 Oral 1080 240 Output: Urine 800 Other: Voiding Method Urinal Urinal # Voids 1 # Bowel Movements 1 1 - Exam No acute distress resting comfortably. Heart appears regular. Lungs are clear. Abdomen is soft. Bilateral groins are clean and dry. No obvious hematoma or pseudoaneurysm. Palpable femoral pulses bilaterally - Labs CBC & Chem 7: 10/06/23 05:59 10/06/23 05:59 Labs: Abnormal Lab Results - Last 24 Hours (Table) 10/05/23 10/05/23 10/05/23 Range/Units 10:10 16:56 16:56 WBC 11.7 H (3.8-10.6) k/uL RBC 3.57 L (4.30-5.90) m/uL Hgb 9.5 L (13.0-17.5) gm/dL Hct 30.3 L (39.0-53.0) % RDW 15.9 H (11.5-15.5) % Plt Count 527 H (150-450) k/uL Neutrophils # 9.1 H (1.3-7.7) k/uL Lymphocytes # 0.7 L (1.0-4.8) k/uL Sodium 136 L (137-145) mmol/L Potassium (3.5-5.1) mmol/L Creatinine 0.58 L (0.66-1.25) mg/dL Calcium (8.4-10.2) mg/dL Total Protein (6.3-8.2) g/dL Albumin (3.5-5.0) g/dL Crossmatch See Detail 10/05/23 10/06/23 10/06/23 Range/Units 22:19 05:59 05:59 WBC 12.2 H 11.5 H (3.8-10.6) k/uL RBC 3.02 L 2.84 L (4.30-5.90) m/uL Hgb 8.2 L 7.6 L (13.0-17.5) gm/dL Hct 25.9 L 24.2 L (39.0-53.0) % RDW 15.9 H 16.0 H (11.5-15.5) % Plt Count 484 H 465 H (150-450) k/uL Neutrophils # 10.3 H 10.1 H (1.3-7.7) k/uL Lymphocytes # 0.3 L 0.3 L (1.0-4.8) k/uL Sodium 136 L (137-145) mmol/L Potassium 3.4 L (3.5-5.1) mmol/L Creatinine 0.59 L (0.66-1.25) mg/dL Calcium 8.3 L (8.4-10.2) mg/dL Total Protein 5.3 L (6.3-8.2) g/dL Albumin 2.6 L (3.5-5.0) g/dL Crossmatch Assessment and Plan Assessment: Postop abdominal aortic aneurysm repair Peripheral vascular disease Plan: Overall patient patient doing well, mild decrease in hemoglobin. Given overall cardiac status we'll plan to transfuse 1 unit PRBC. We will have Lasix 1 available for post transfusion. We'll keep him overnight to further evaluate, may begin increasing her activity/ablation today as he has been bed rest since over issues of potential bleeding from the groin. Patient seemingly understands.
[2023-10-06] MEDS: MONTELUKAST 10 MG TAB PO SCH (21:16)
[2023-10-06] MEDS: ATORVASTATIN 80 MG TAB PO SCH (21:16)
[2023-10-07] MEDS: HYDROcodone/APAP 5-325MG 1 EACH TAB PO PRN ×2 (04:26→08:51)
[2023-10-07] MEDS: PANTOPRAZOLE 40 MG TABLET PO SCH (06:15)
[2023-10-07] MEDS: PIPERACILLIN-TAZOBACTAM 3.375 GM in SODIUM CHLORIDE 0.9% 100 ML IVPB SCH (06:15)
[2023-10-07] MEDS: carvediloL 6.25 MG TAB PO SCH (06:15)
[2023-10-07] MEDS: GABAPENTIN 300 MG CAP PO SCH (08:51)
[2023-10-07] MEDS: SPIRONOLACTONE 25 MG TAB PO SCH (08:52)
[2023-10-07] MEDS: CLOPIDOGREL 75 MG TAB PO SCH (08:52)
[2023-10-07] MEDS: THIAMINE 100 MG TAB PO SCH (08:52)
[2023-10-07] MEDS: LORATADINE 10 MG TAB PO SCH (08:52)
[2023-10-07] MEDS: FUROSEMIDE 40 MG TAB PO SCH (08:52)
[2023-10-07] MEDS: ASPIRIN 81 MG PO SCH (08:52)
--- NOTE | 2023-10-07 12:13 | P.PN ---
Subjective Progress Note Date: 10/07/23 patient is a 73-year-old gentleman past medical significant for AAA, peripheral artery disease, left second toe osteomyelitis presented to the hospital for elective endovascular repair of infrarenal abdominal aortic aneurysm. Patient has recent CT abdomen and pelvis done that demonstrated 5.7 x 5.9 cm infrarenal abdominal aortic aneurysm. Patient was being worked up outpatient by vascular surgery and they recommended percutaneous endovascular aortic repair for which patient present to the hospital. Patient tolerated the procedure well. Postoperatively internal medicine team was consulted for medical management 10/07. Patient seen and examined. Denies any lightheadedness or dizziness. Still has slight swelling in the right groin, no bruising seen REVIEW OF SYSTEMS: CONSTITUTIONAL: No fever, no malaise,. CARDIOVASCULAR: No chest pain, no palpitations, no syncope. PULMONARY: No shortness of breath, no cough, GASTROINTESTINAL: No diarrhea, no nausea, no vomiting, no abdominal pain. NEUROLOGICAL: No headaches, no weakness, PHYSICAL EXAMINATION: GENERAL: The patient is alert and oriented x3, not in any acute distress. Well developed, well nourished. HEENT: Pupils are round and equally reacting to light. EOMI. No scleral icterus. No conjunctival pallor. Normocephalic, atraumatic. No pharyngeal erythema. No thyromegaly. CARDIOVASCULAR: S1 and S2 present. No murmurs, rubs, or gallops. PULMONARY: Chest is clear to auscultation, no wheezing or crackles. ABDOMEN: Soft, nontender, nondistended, normoactive bowel sounds. No palpable organomegaly. MUSCULOSKELETAL: No joint swelling or deformity. EXTREMITIES: No cyanosis, clubbing, or pedal edema. NEUROLOGICAL: Gross neurological examination did not reveal any focal deficits. SKIN: Swelling in right groin, no tenderness, no ecchymosis Assessment and plan Asymptomatic 5.9 x 5.7 cm infrarenal abdominal aortic aneurysm, severe iliac calcification with greater than 60% stenosis bilaterally s/pPercutaneous Endovascular aortic repair Percutaneous transluminal balloon angioplasty of the left common iliac, external iliac artery Peripheral arterial disease History of left second toe osteomyelitis Monitor vital signs Monitor CBC Monitor CMP Continue postop care per vascular surgery Continue aspirin, Plavix Continue Coreg, Lasix, lisinopril Encourage ambulation Vascular surgery following Labs and medication were reviewed.. Continue same treatment. Continue with symptomatic treatment. Resume home medication. Monitor labs and vitals. DVT and GI prophylaxis. Further recommendations as per clinical course of the patient Dictation was produced using [employer] dictation software. please excuse any grammatical, word or spelling errors. Objective - Vital Signs Vital signs: Vital Signs Temp 97.9 F 10/07/23 08:00 Pulse 87 10/07/23 08:00 Resp 16 10/07/23 08:00 BP 123/54 10/07/23 08:00 Pulse Ox 97 10/07/23 08:00 FiO2 Intake & Output 10/06/23 10/07/23 10/07/23 18:59 06:59 18:59 Intake Total 598 1090 358 Output Total 825 1100 Balance -227 -10 358 Intake: Oral 598 780 358 Blood Product 0 310 Rc As-1 Unit 0 310 [id number] Output: Urine 825 1100 Other: Voiding Method Urinal Urinal # Voids 1 # Bowel Movements 1 - Labs CBC & Chem 7: 10/06/23 05:59 10/06/23 05:59 Labs: Abnormal Lab Results - Last 24 Hours (Table) 10/05/23 10/06/23 Range/Units 10:10 05:59 Sodium 136 L (137-145) mmol/L Potassium 3.4 L (3.5-5.1) mmol/L Creatinine 0.59 L (0.66-1.25) mg/dL Calcium 8.3 L (8.4-10.2) mg/dL Total Protein 5.3 L (6.3-8.2) g/dL Albumin 2.6 L (3.5-5.0) g/dL Crossmatch See Detail
[2023-10-07 12:24] LABS: HCT 26.7 % (39.0-53.0); HGB 8.4 gm/dL (13.0-17.5); Hypochromasia Marked; MCH 27.3 pg (25.0-35.0); MCHC 31.3 g/dL (31.0-37.0); MCV 87.1 fL (80.0-100.0); Mean Platelet Volume 7.3; Platelet Count 432 k/uL (150-450); Poikilocytosis Moderate; RBC 3.07 m/uL (4.30-5.90)
[2023-10-07 12:32] VITALS: BP 146/65; RESP 14; TEMP 98.1
[2023-10-07 13:51] VITALS: PULSE 87
--- NOTE | 2023-10-07 14:14 | P.DS ---
Providers Date of admission: 10/05/23 09:42 Expected date of discharge: 10/07/23 Attending physician: Tay Padilla DO Consults: 10/05/23 07:03 Consult to Anesthesia Routine Consulting Provider: Anesthesia,Services Consult Reason/Comments: General anesthesia for Aortic Stent procedure 10/05/23 15:01 Consult Physician Routine Consulting Provider: Yusuf Lisa Reason/Comments: medical management Do you want consulting provider notified?: Yes Primary care physician: Maggy Siegel - Discharge Diagnosis(es) (1) AAA (abdominal aortic aneurysm) Current Visit: Yes Status: Acute (2) Ulcer of foot, chronic Current Visit: No Status: Acute (3) Wound of left foot Current Visit: No Status: Acute Hospital Course: Underwent EVAR without issues, admitted overnight- had some decrease in hgb and had 1 unit transfusion with good response, stable for discharge Assessment: palpable femoral pulses bilaterally, no hematoma or infection. Procedures: EVAR Patient Condition at Discharge: Stable Plan - Discharge Summary Discharge Rx Participant: No New Discharge Prescriptions: No Action Clopidogrel [Plavix] 75 mg PO DAILY #30 tab lisinopriL [Zestril] 2.5 mg PO HS #30 tab Montelukast [Singulair] 10 mg PO HS #30 tab Loratadine [Claritin] 10 mg PO DAILY Atorvastatin [Lipitor] 80 mg PO HS Multivitamins, Thera [Multivitamin (formulary)] 1 each PO DAILY tab Acetaminophen Tab [Tylenol] 650 mg PO Q6HR PRN tab PRN Reason: Mild Pain Or Fever > 100.5 Gabapentin 600 mg PO TID #9 tab Omeprazole [PriLOSEC] 20 mg PO AC-BID Spironolactone [Aldactone] 25 mg PO DAILY Piperacillin-Tazobactam [Zosyn] 3.375 gm IVPB Q8HR #120 each Folic Acid 1 mg PO DAILY tab Furosemide [Lasix] 40 mg PO DAILY #30 tablet HYDROcodone/APAP 5-325MG [Haslett 5-325] 1 each PO Q6H PRN #12 tab PRN Reason: Pain Thiamine [Vitamin B-1] 100 mg PO DAILY tab Magnesium Citrate and Oxide [Magnesium] 500 mg PO DAILY #30 cap carvediloL [Coreg] 6.25 mg PO BID #60 tablet polyethylene glycoL 3350 [Miralax] 17 gm PO DAILY PRN PRN Reason: Constipation Discharge Medication List Clopidogrel [Plavix] 75 mg PO DAILY #30 tab 02/22/16 [Rx] Montelukast [Singulair] 10 mg PO HS #30 tab 02/22/16 [Rx] lisinopriL [Zestril] 2.5 mg PO HS #30 tab 02/22/16 [Rx] Loratadine [Claritin] 10 mg PO DAILY 09/08/20 [History] Atorvastatin [Lipitor] 80 mg PO HS 09/20/23 [History] Omeprazole [PriLOSEC] 20 mg PO AC-BID 09/20/23 [History] Spironolactone [Aldactone] 25 mg PO DAILY 09/20/23 [History] Acetaminophen Tab [Tylenol] 650 mg PO Q6HR PRN tab 09/25/23 [Rx] Folic Acid 1 mg PO DAILY tab 09/25/23 [Rx] Furosemide [Lasix] 40 mg PO DAILY #30 tablet 09/25/23 [Rx] Gabapentin 600 mg PO TID #9 tab 09/25/23 [Rx] HYDROcodone/APAP 5-325MG [Haslett 5-325] 1 each PO Q6H PRN #12 tab 09/25/23 [Rx] Magnesium Citrate and Oxide [Magnesium] 500 mg PO DAILY #30 cap 09/25/23 [Rx] Multivitamins, Thera [Multivitamin (formulary)] 1 each PO DAILY tab 09/25/23 [Rx] Piperacillin-Tazobactam [Zosyn] 3.375 gm IVPB Q8HR #120 each 09/25/23 [Rx] Thiamine [Vitamin B-1] 100 mg PO DAILY tab 09/25/23 [Rx] carvediloL [Coreg] 6.25 mg PO BID #60 tablet 09/26/23 [Rx] polyethylene glycoL 3350 [Miralax] 17 gm PO DAILY PRN 10/05/23 [History] Follow up Appointment(s)/Referral(s): Tay Padilla DO [STAFF PHYSICIAN] - 2 Weeks Activity/Diet/Wound Care/Special Instructions: no lifting greater than 15 lbs x 2 weeks. Discharge Disposition: HOME SELF-CARE
== END 2023-10-07 16:21 | disposition home health service (06) | DRG 269 ==
LOC: 2ORMAIN 09:42 → 3SCARD 14:48
PROVIDERS: ADMIT Surgery; ATTEND Surgery
PROC: 04V03DZ Restriction of Abdominal Aorta with Intraluminal Device, Percutaneous Approach (ICD-10-PCS; principal; 2023-10-05 11:30)
PROC: 04FD3ZZ Fragmentation of Left Common Iliac Artery, Percutaneous Approach (ICD-10-PCS; principal; 2023-10-05 11:30)
PROC: 047J3ZZ Dilation of Left External Iliac Artery, Percutaneous Approach (ICD-10-PCS; principal; 2023-10-05 11:30)
PROC: 04FJ3ZZ Fragmentation of Left External Iliac Artery, Percutaneous Approach (ICD-10-PCS; principal; 2023-10-05 11:30)
PROC: 047D3ZZ Dilation of Left Common Iliac Artery, Percutaneous Approach (ICD-10-PCS; principal; 2023-10-05 11:30)
PROC: 30233N1 Transfusion of Nonautologous Red Blood Cells into Peripheral Vein, Percutaneous Approach (ICD-10-PCS; 2023-10-06)
DX: I71.43 Infrarenal abdominal aortic aneurysm, without rupture (principal); M86.9 Osteomyelitis, unspecified; I27.22 Pulmonary hypertension due to left heart disease; I11.0 Hypertensive heart disease with heart failure; I50.9 Heart failure, unspecified; L97.529 Non-pressure chronic ulcer of other part of left foot with unspecified severity; I70.213 Atherosclerosis of native arteries of extremities with intermittent claudication, bilateral legs; I70.8 Atherosclerosis of other arteries; I08.0 Rheumatic disorders of both mitral and aortic valves; Z89.422 Acquired absence of other left toe(s); E78.5 Hyperlipidemia, unspecified; I25.5 Ischemic cardiomyopathy; I25.10 Atherosclerotic heart disease of native coronary artery without angina pectoris; I25.2 Old myocardial infarction; N28.89 Other specified disorders of kidney and ureter; Z71.6 Tobacco abuse counseling; F17.210 Nicotine dependence, cigarettes, uncomplicated; Z79.02 Long term (current) use of antithrombotics/antiplatelets; Z79.2 Long term (current) use of antibiotics; Z79.899 Other long term (current) drug therapy; Z95.1 Presence of aortocoronary bypass graft; Z82.49 Family history of ischemic heart disease and other diseases of the circulatory system
CPT/HCPCS: 80048; 80053; 85025; 85027; 86850; 86900; 86901; 86920; 94760

== ENCOUNTER 2023-10-10 15:16 | Inpatient (IN) | payer MEDICARE ==
[2023-10-10] MEDS: SODIUM CHLORIDE 0.9% 1,000 ML IV STA (16:01)
--- NOTE | 2023-10-10 16:11 | ED ---
GI Bleed HPI - General Chief complaint: GI Bleed Stated complaint: GI Bleed Time Seen by Provider: 10/10/23 15:26 Source: EMS, RN notes reviewed, old records reviewed Mode of arrival: EMS Limitations: no limitations - History of Present Illness Initial comments: This is a 73-year-old male to ER for blood in the stool. Patient was seen for blood in the stool prior to arrival with abdominal pain. Back pain more so than abdominal pain patient does have history of aneurysm repair recent.. Patient does not admit to mild shortness of breath increased cough with his normal COPD. Patient is on Plavix and aspirin MD complaint: blood on toilet paper, blood streaked stool -: hour(s) Quality: cramping, sharp (Back pain) Consistency: constant Worsens with: none Context: history of GI bleed Associated Symptoms: abdominal pain, nausea Treatments Prior to Arrival: none - Related Data Home Medications Medication Instructions Recorded Confirmed Loratadine [Claritin] 10 mg PO DAILY 09/08/20 10/10/23 Atorvastatin [Lipitor] 80 mg PO HS 09/20/23 10/10/23 Spironolactone [Aldactone] 25 mg PO DAILY 09/20/23 10/10/23 polyethylene glycoL 3350 [Miralax] 17 gm PO DAILY PRN 10/05/23 10/10/23 HYDROcodone/APAP 5-325MG [[place] 1 tab PO BID 10/10/23 10/10/23 5-325] Multivitamins, Thera [Multivitamin 1 tab PO DAILY 10/10/23 10/10/23 (formulary)] carvediloL [Coreg] 6.25 mg PO BID-W/MEALS 10/10/23 10/10/23 Previous Rx's Medication Instructions Recorded Montelukast [Singulair] 10 mg PO HS #30 tab 02/22/16 lisinopriL [Zestril] 2.5 mg PO HS #30 tab 02/22/16 Acetaminophen Tab [Tylenol] 650 mg PO Q6HR PRN tab 09/25/23 Folic Acid 1 mg PO DAILY tab 09/25/23 Furosemide [Lasix] 40 mg PO DAILY #30 tablet 09/25/23 Gabapentin 600 mg PO TID #9 tab 09/25/23 Magnesium Citrate and Oxide 500 mg PO DAILY #30 cap 09/25/23 [Magnesium] Piperacillin-Tazobactam [Zosyn] 3.375 gm IVPB Q8HR #120 each 09/25/23 Thiamine [Vitamin B-1] 100 mg PO DAILY tab 09/25/23 Aspirin 81 mg PO DAILY 30 Days #30 tab 10/13/23 Omeprazole [PriLOSEC] 40 mg PO AC-BID 30 Days #60 cap 10/13/23 Omeprazole [PriLOSEC] 40 mg PO BID 30 Days #60 cap 10/13/23 Allergies Allergy/AdvReac Type Severity Reaction Status Date / Time No Known Allergies Allergy Verified 10/10/23 16:55 Review of Systems ROS Statement: Those systems with pertinent positive or pertinent negative responses have been documented in the HPI. ROS Other: All systems not noted in ROS Statement are negative. Past Medical History Past Medical History: Coronary Artery Disease (CAD), Heart Failure, Hyperlipidemia, Hypertension, Vascular Disorder Additional Past Medical History / Comment(s): aortic aneusrym, herniated disc, peripheral vascular disease Last Myocardial Infarction Date:: 02/2023 History of Any Multi-Drug Resistant Organisms: None Reported Past Surgical History: Appendectomy, Coronary Bypass/CABG, Orthopedic Surgery Additional Past Surgical History / Comment(s): Right rotater cuff repair, L first and second toe removal Past Anesthesia/Blood Transfusion Reactions: No Reported Reaction Past Psychological History: No Psychological Hx Reported Smoking Status: Current some day smoker, Light tobacco smoker Past Alcohol Use History: Daily, Occasional Past Drug Use History: Marijuana - Past Family History Father Family Medical History: Coronary Artery Disease (CAD) Additional Family Medical History / Comment(s): triple bypass Mother Family Medical History: Coronary Artery Disease (CAD), Dementia General Exam General appearance: alert, in no apparent distress, anxious Head exam: Present: atraumatic, normocephalic, normal inspection Eye exam: Present: normal appearance, PERRL, EOMI. Absent: scleral icterus, conjunctival injection, periorbital swelling ENT exam: Present: normal exam, mucous membranes moist Neck exam: Present: normal inspection. Absent: tenderness, meningismus, lymphadenopathy Respiratory exam: Present: respiratory distress, wheezes, decreased breath sounds, prolonged expiratory. Absent: rales, rhonchi, stridor Cardiovascular Exam: Present: normal rhythm, tachycardia, normal heart sounds. Absent: systolic murmur, diastolic murmur, rubs, gallop, clicks GI/Abdominal exam: Present: soft, normal bowel sounds. Absent: distended, tenderness, guarding, rebound, rigid Extremities exam: Present: normal inspection, full ROM, normal capillary refill. Absent: tenderness, pedal edema, joint swelling, calf tenderness Back exam: Present: normal inspection Neurological exam: Present: alert, oriented X3, CN II-XII intact Psychiatric exam: Present: normal affect, normal mood Skin exam: Present: warm, dry, intact, normal color. Absent: rash Course Vital Signs 10/10/23 10/10/23 10/10/23 15:17 20:00 21:23 Temperature 97.7 F Pulse Rate 103 H 97 99 Pulse Rate [ Pulse Oximetery ] Respiratory 17 18 18 Rate Blood Pressure 120/54 115/58 112/60 Blood Pressure [Left Arm] O2 Sat by Pulse 88 L 98 100 Oximetry 10/10/23 10/10/23 10/10/23 21:25 21:38 22:00 Temperature 99.2 F Pulse Rate 93 92 Pulse Rate [ 98 Pulse Oximetery ] Respiratory 16 Rate Blood Pressure Blood Pressure 99/54 [Left Arm] O2 Sat by Pulse 98 Oximetry - Reevaluation(s) Reevaluation #1: 10/10/23 18:56 Records reviewed Reevaluation #2: 10/10/23 18:56 Patient has no current active GI bleeding here in the ER Reevaluation #3: 10/10/23 18:56 Patient informed of results and questions answered Reevaluation #4: 10/10/23 18:56 Was pt. sent in by a medical professional or institution (, PA, LICENSED MASSAGE PRACTITIONER, urgent care, hospital, or fpc...) When possible be specific @ -no Did you speak to anyone other than the patient for history (EMS, parent, family, police, friend...)? What history was obtained from this source @ -no Did you review nursing and triage notes (agree or disagree)? Why? @ -agree Are old charts reviewed (outside hosp., previous admission, EMS record, old EKG, old radiological studies, urgent care reports/EKG's, fpc records)? Report findings @ -yes Differential Diagnosis (chest pain, altered mental status, abdominal pain women, abdominal pain men, vaginal bleeding, weakness, fever, dyspnea, syncope, headache, dizziness, GI bleed, back pain, seizure, CVA, palpatations, mental health, musculoskeletal)? @ -prior EKG interpreted by me (3pts min.). @ -yes X-rays interpreted by me (1pt min.). @ -yes negative for acute disease CT interpreted by me (1pt min.). @ -Yes positive for aneurysm repair no active bleeding U/S interpreted by me (1pt. min.). @ -no What testing was considered but not performed or refused? (CT, X-rays, U/S, labs)? Why? @ -none What meds were considered but not given or refused? Why? @ -none Did you discuss the management of the patient with other professionals (professionals i.e. , PA, LICENSED MASSAGE PRACTITIONER, lab, RT, psych nurse, psychologist social, systems operator, teacher, commanding officer motorized squad, case liner)? Give summary @ -no Was smoking cessation discussed for >3mins.? @ -no Was critical care preformed (if so, how long)? @ -yes31 Were there social determinants of health that impacted care today? How? (Homelessness, low income, unemployed, alcoholism, drug addiction, transportation, low edu. Level, literacy, decrease access to med. care, residential, rehab)? @ -none Was there de-escalation of care discussed even if they declined (Discuss DNR or withdrawal of care, Hospice)? DNR status @ -no What co-morbidities impacted this encounter? (DM, HTN, Smoking, COPD, CAD, Cancer, CVA, ARF, Chemo, Hep., AIDS, mental health diagnosis, sleep apnea, morb id obesity)? @ -none Was patient admitted / discharged? Hospital course, mention meds given and rou te, prescriptions, significant lab abnormalities, going to OR and other pertinent info. @ - 73 male to the ER for evaluation patient is abdominal pain back pain and GI bleed. Patient will admit for GI consultation, patient has complicated recent medical history with recent endograft aneurysm repair. Patient does feel weak and lightheaded here in the ER Admitted Undiagnosed new problem with uncertain prognosis? @ -no Drug Therapy requiring intensive monitoring for toxicity (Heparin, Nitro, In sulin, Cardizem)? @ -no Were any procedures done? @ -no Diagnosis/symptom? @ -GI bleed Acute, or Chronic, or Acute on Chronic? @ -Acute Uncomplicated (without systemic symptoms) or Complicated (systemic symptoms)? @ -Complicated Side effects of treatment? @ -no Exacerbation, Progression, or Severe Exacerbation? @ -exacerbation Poses a threat to life or bodily function? How? (Chest pain, [place], [place], pneumonia, PE, COPD, DKA, ARF, appy, cholecystitis, CVA, Diverticulitis, Homicidal, Suicidal, threat to staff... and all critical care pts) @ -yes with significant GI bleef - Consultations Consultation #1: Spoke with Dr. Mcdaniel who agreed to admit this patient Medical Decision Making - Medical Decision Making 73 male to the ER for evaluation patient is abdominal pain back pain and GI bleed. Patient will admit for GI consultation, patient has complicated recent medical history with recent endograft aneurysm repair. Patient does feel weak and lightheaded here in the ER - Lab Data Result diagrams: 10/13/23 13:07 10/11/23 04:20 Lab Results 10/10/23 10/10/23 10/10/23 Range/Units 13:57 15:32 15:32 WBC 9.3 (3.8-10.6) k/uL RBC 2.63 L (4.30-5.90) m/uL Hgb 7.2 L (13.0-17.5) gm/dL Hct 22.2 L (39.0-53.0) % MCV 84.5 (80.0-100.0) fL MCH 27.5 (25.0-35.0) pg MCHC 32.5 (31.0-37.0) g/dL RDW 16.7 H (11.5-15.5) % Plt Count 389 (150-450) k/uL MPV 7.2 Neutrophils % (Manual) 95 % Lymphocytes % (Manual) 1 % Monocytes % (Manual) 1 % Eosinophils % (Manual) 3 % Neutrophils # (Manual) 8.84 H (1.3-7.7) k/uL Lymphocytes # (Manual) 0.09 L (1.0-4.8) k/uL Monocytes # (Manual) 0.09 (0-1.0) k/uL Eosinophils # (Manual) 0.28 (0-0.7) k/uL Nucleated RBCs 0 (0-0) /100 WBC Manual Slide Review Performed Hypochromasia Moderate Hypochromasia (manual) Present Poikilocytosis Slight Anisocytosis Slight Anisocytosis (manual) Present Target Cells Present Tear Drop Cells Present PT 13.3 H (10.0-12.5) sec INR 1.3 H (<1.2) APTT 25.2 (22.0-30.0) sec Sodium (137-145) mmol/L Potassium (3.5-5.1) mmol/L Chloride (98-107) mmol/L Carbon Dioxide (22-30) mmol/L Anion Gap mmol/L BUN (9-20) mg/dL Creatinine (0.66-1.25) mg/dL Est GFR (CKD-EPI)AfAm (>60 ml/min/1.73 sqM) Est GFR (CKD-EPI)NonAf (>60 ml/min/1.73 sqM) Glucose (74-99) mg/dL Plasma Lactic Acid William (0.7-2.0) mmol/L Calcium (8.4-10.2) mg/dL Magnesium (1.6-2.3) mg/dL Iron 21 L (65-175) UG/DL TIBC 283 (228-460) UG/DL % Saturation 7.42 L (15.00-50.00) Transferrin 202.0 L (204.0-354.0) mg/dL Ferritin 36.4 (22.0-322.0) ng/mL Total Bilirubin (0.2-1.3) mg/dL AST (17-59) U/L ALT (4-49) U/L Alkaline Phosphatase (38-126) U/L Ammonia (<30) umol/L Troponin I (0.000-0.034) ng/mL Total Protein (6.3-8.2) g/dL Albumin (3.5-5.0) g/dL Lipase (23-300) U/L Vitamin B12 346.0 (200.0-944.0) pg/mL 10/10/23 10/10/23 10/10/23 Range/Units 15:32 15:32 15:32 WBC (3.8-10.6) k/uL RBC (4.30-5.90) m/uL Hgb (13.0-17.5) gm/dL Hct (39.0-53.0) % MCV (80.0-100.0) fL MCH (25.0-35.0) pg MCHC (31.0-37.0) g/dL RDW (11.5-15.5) % Plt Count (150-450) k/uL MPV Neutrophils % (Manual) % Lymphocytes % (Manual) % Monocytes % (Manual) % Eosinophils % (Manual) % Neutrophils # (Manual) (1.3-7.7) k/uL Lymphocytes # (Manual) (1.0-4.8) k/uL Monocytes # (Manual) (0-1.0) k/uL Eosinophils # (Manual) (0-0.7) k/uL Nucleated RBCs (0-0) /100 WBC Manual Slide Review Hypochromasia Hypochromasia (manual) Poikilocytosis Anisocytosis Anisocytosis (manual) Target Cells Tear Drop Cells PT (10.0-12.5) sec INR (<1.2) APTT (22.0-30.0) sec Sodium 132 L (137-145) mmol/L Potassium 3.2 L (3.5-5.1) mmol/L Chloride 100 (98-107) mmol/L Carbon Dioxide 24 (22-30) mmol/L Anion Gap 8 mmol/L BUN 20 (9-20) mg/dL Creatinine 0.57 L (0.66-1.25) mg/dL Est GFR (CKD-EPI)AfAm >90 (>60 ml/min/1.73 sqM) Est GFR (CKD-EPI)NonAf >90 (>60 ml/min/1.73 sqM) Glucose 75 (74-99) mg/dL Plasma Lactic Acid William 1.0 (0.7-2.0) mmol/L Calcium 8.4 (8.4-10.2) mg/dL Magnesium 1.4 L (1.6-2.3) mg/dL Iron (65-175) UG/DL TIBC (228-460) UG/DL % Saturation (15.00-50.00) Transferrin (204.0-354.0) mg/dL Ferritin (22.0-322.0) ng/mL Total Bilirubin 0.6 (0.2-1.3) mg/dL AST 26 (17-59) U/L ALT 22 (4-49) U/L Alkaline Phosphatase 103 (38-126) U/L Ammonia <9 (<30) umol/L Troponin I <0.012 (0.000-0.034) ng/mL Total Protein 5.5 L (6.3-8.2) g/dL Albumin 2.8 L (3.5-5.0) g/dL Lipase 58 (23-300) U/L Vitamin B12 (200.0-944.0) pg/mL - EKG Data -: EKG Interpreted by Me - Radiology Data Radiology results: report reviewed (X-ray CT abdomen pelvis showed no change in aneurysm or acute bleed), image reviewed Disposition Clinical Impression: GI bleed, Abdominal pain, COPD (chronic obstructive pulmonary disease) Disposition: ADMITTED IP TO THIS [facility] Condition: Stable
[2023-10-10 16:15] LABS: Anisocytosis Slight; HCT 22.2 % (39.0-53.0); HGB 7.2 gm/dL (13.0-17.5); Hypochromasia Moderate; MCH 27.5 pg (25.0-35.0); MCHC 32.5 g/dL (31.0-37.0); MCV 84.5 fL (80.0-100.0); Mean Platelet Volume 7.2; Platelet Count 389 k/uL (150-450); Poikilocytosis Slight; RBC 2.63 m/uL (4.30-5.90); RDW 16.7 % (11.5-15.5); WBC 9.3 k/uL (3.8-10.6)
[2023-10-10 16:30] LABS: ALT 22 U/L (4-49); AST 26 U/L (17-59); African American GFR (CKD) >90 (>60 ml/min/1.73 sqM); Albumin 2.8 g/dL (3.5-5.0); Alkaline Phosphatase 103 U/L (38-126); Anion Gap 8 mmol/L; Blood Urea Nitrogen 20 mg/dL (9-20); Calcium 8.4 mg/dL (8.4-10.2); Carbon Dioxide 24 mmol/L (22-30); Chloride 100 mmol/L (98-107); Glucose 75 mg/dL (74-99); Lipase 58 U/L (23-300); Magnesium 1.4 mg/dL (1.6-2.3); Non-African American GFR(CKD) >90 (>60 ml/min/1.73 sqM); Potassium 3.2 mmol/L (3.5-5.1); Sodium 132 mmol/L (137-145); Total Bilirubin 0.6 mg/dL (0.2-1.3); Total Protein 5.5 g/dL (6.3-8.2)
[2023-10-10 16:38] LABS: INR 1.3 (<1.2); Partial Thromboplastin Time 25.2 sec (22.0-30.0); Prothrombin Time 13.3 sec (10.0-12.5)
[2023-10-10] MEDS: MORPHINE SULFATE 4 MG/ML SYRINGE IVP STA (17:11)
[2023-10-10 17:21] LABS: Anisocytosis (M) Present; Eosinophils # (M) 0.28 k/uL (0-0.7); Hypochromasia (M) Present; Lymphocytes # (M) 0.09 k/uL (1.0-4.8); Monocytes # (M) 0.09 k/uL (0-1.0); Neutrophils # (M) 8.84 k/uL (1.3-7.7); Neutrophils % (M) 95 %; Nucleated Red Blood Cells 0 /100 WBC (0-0); Target Cells Present; Tear Drop Cells Present; Total Cells Counted 100
--- NOTE | 2023-10-10 17:51 | XR ---
EXAMINATION TYPE: XR chest 1V DATE OF EXAM: 10/10/2023 5:17 PM CLINICAL INDICATION:Male, 73 years old with history of sob; [facility] COMPARISON: 09/23/2023 TECHNIQUE: XR chest 1V Frontal view of the chest. FINDINGS: Lungs/Pleura: Improved aeration of lungs on today's exam with persistent airspace opacities scattered throughout the lungs. No evidence of pneumothorax or large pleural effusion. Pulmonary vascularity: Unremarkable. Heart/mediastinum: Cardiomediastinal silhouette is prominent in size. Musculoskeletal: No acute osseous pathology. Midline sternotomy wires are noted. IMPRESSION: Improved scattered airspace opacities compared to prior with persistent scattered airspace opacities. .
[2023-10-10] MEDS ORDERED: NALOXONE 0.4 MG/ML 1 ML VIAL IV PRN (18:58)
[2023-10-10] MEDS ORDERED: ONDANSETRON 4 MG/2 ML VIAL IVP PRN (18:58)
[2023-10-10] MEDS: POTASSIUM BICARBONATE/CIT AC 20 MEQ TABLET.EFF PO ONE (19:07)
--- NOTE | 2023-10-10 19:07 | CT ---
EXAMINATION TYPE: CT angio abdomen pelvis CT DLP: 1429.5 mGycm, Automated exposure control for dose reduction was used. DATE OF EXAM: 10/10/2023 6:30 PM COMPARISON: CLINICAL INDICATION:Male, 73 years old with history of pain, GI bleed TECHNIQUE: Multiple thin slice sub-millimeter images were obtained after administration of contrast. 3-D reconstructed images and maximum intensity projection images were obtained. CT angio abdomen pel vis CT Contrast: Contrast used:100 mL of Isovue 370 without and with IV Contrast, Oral contrast used: without Oral Contrast None FINDINGS: CTA Abdomen and pelvis: Aortobiiliac stent graft is present and patent. The excluded lumen measuring up to 6.0 x 5.8 cm. No evidence for endoleak. Dilation of the common iliac artery on the right up to 2.5 cm. No evidence for intramural hematoma on noncontrast imaging. There is scattered atheroscleroti c plaque throughout the remainder of the abdominal aorta. The visualized major branches of the aorta including the celiac axis superior mesenteric axis are patent. The superior mesenteric axis is calcif ied plaque with at least 50% stenosis. The bilateral renal arteries are patent there may be due to le ft renal arteries present. LOWER CHEST: No evidence of focal consolidation, pneumothorax or pleural effusion. Atherosclerosis of the aorta. Mildly enlarged for size. There is severe coronary artery atherosclerosis. LIVER: Unremarkable GALLBLADDER AND BILE DUCTS: Unremarkable. PANCREAS: Unremarkable. SPLEEN: Unremarkable. ADRENAL GLANDS: Unremarkable. KIDNEYS AND URETERS: There is a renal neoplasm measuring 25 x 20 mm anterior medial aspect of the rig ht kidney series 501 image 29 No evidence of hydronephrosis or renal calculus. The ureters are unrema rkable. Atherosclerosis of the renal sinus is thought to be vascular in etiology. PELVIS BLADDER: Unremarkable REPRODUCTIVE: Unremarkable. ABDOMEN & PELVIS STOMACH AND BOWEL: Evaluation of the gastrointestinal tract demonstrates no evidence of high density hemorrhage arterial phase or pooling of blood on delayed phases. No evidence of bowel obstruction. Sc attered colonic diverticula present. PERITONEUM: No evidence of pneumoperitoneum or free fluid. Large cystic lesion in the left upper quad rant measuring at least 9.3 x 8.8 cm. MUSCULOSKELETAL: No acute osseous abnormalities, degeneration changes of the hips with osteophyte for mation and joint space narrowing. LYMPH NODES: No gross evidence for lymphadenopathy. SOFT TISSUE/ABDOMINAL WALL: Unremarkable IMPRESSION 1. No evidence for gastrointestinal hemorrhage. 2. 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 MRI renal mass protocol recommen ded. Urology consultation recommended. 3. Aortobiiliac stent graft is present and patent. The excluded lumen measuring up to 6.0 x 5.8 cm. No evidence for endoleak. 4. Right common iliac artery stent graft measuring up to 2.5 cm. 5. Colonic diverticulosis. 6. Mild Cardiomegaly. 7. Severe coronary artery atherosclerosis. 8. Mild aortic valve leaflet calcifications. 9. Large cystic lesion in the left upper quadrant unclear whether this is coming from the pancreas v ersus the kidney versus postsurgical seroma.
[2023-10-10] MEDS: PIPERACILLIN-TAZOBACTAM 3.375 GM in SODIUM CHLORIDE 0.9% 100 ML IVPB STA (21:10)
[2023-10-10] MEDS: IPRATROPIUM-ALBUTEROL 3 ML NEB INHALATION STA (21:25)
[2023-10-10] MEDS: ATORVASTATIN 80 MG TAB PO SCH (22:38)
[2023-10-10] MEDS: HYDROcodone/APAP 5-325MG 1 EACH TAB PO SCH (22:38)
[2023-10-10] MEDS: GABAPENTIN 300 MG CAP PO SCH (22:39)
[2023-10-11] MEDS: PIPERACILLIN-TAZOBACTAM 3.375 GM in SODIUM CHLORIDE 0.9% 100 ML IVPB SCH (04:41)
[2023-10-11 04:48] LABS: Anisocytosis Slight; Basophils # (A) 0.1 k/uL (0-0.2); Basophils % (A) 0 %; Eosinophils # (A) 0.3 k/uL (0-0.7); Eosinophils % (A) 2 %; Hypochromasia Moderate; Lymphocytes # (A) 0.3 k/uL (1.0-4.8); Lymphocytes % (A) 1 %; MCH 26.9 pg (25.0-35.0); MCV 84.1 fL (80.0-100.0); Mean Platelet Volume 7.1; Monocytes # (A) 0.8 k/uL (0-1.0); Monocytes % (A) 4 %; Neutrophils # (A) 18.6 k/uL (1.3-7.7); Neutrophils % (A) 92 %; Platelet Count 347 k/uL (150-450); Poikilocytosis Slight; RBC 2.19 m/uL (4.30-5.90); RDW 16.7 % (11.5-15.5); WBC 20.2 k/uL (3.8-10.6)
[2023-10-11 04:53] LABS: HCT 18.4 % (39.0-53.0); HGB 5.9 gm/dL (13.0-17.5)
[2023-10-11 04:54] LABS: ALT 21 U/L (4-49); AST 27 U/L (17-59); African American GFR (CKD) >90 (>60 ml/min/1.73 sqM); Albumin 2.4 g/dL (3.5-5.0); Alkaline Phosphatase 98 U/L (38-126); Anion Gap 3 mmol/L; Blood Urea Nitrogen 16 mg/dL (9-20); Carbon Dioxide 29 mmol/L (22-30); Chloride 101 mmol/L (98-107); Glucose 75 mg/dL (74-99); Magnesium 1.6 mg/dL (1.6-2.3); Non-African American GFR(CKD) >90 (>60 ml/min/1.73 sqM); Phosphorus 3.7 mg/dL (2.5-4.5); Potassium 3.5 mmol/L (3.5-5.1); Sodium 133 mmol/L (137-145); Total Bilirubin 0.4 mg/dL (0.2-1.3); Total Protein 4.8 g/dL (6.3-8.2)
[2023-10-11] MEDS: PANTOPRAZOLE 40 MG/10 ML VIAL IV SCH (07:42)
[2023-10-11] MEDS: FUROSEMIDE 10 MG/ML 4 ML VIAL IV STA (09:47)
--- NOTE | 2023-10-11 11:29 | P.CRDCN ---
History of Present Illness History of present illness: HISTORY OF PRESENT ILLNESS: This is a 73-year-old male with a past medical history significant for coronary artery disease with previous CABG, peripheral arterial disease, ischemic cardio myopathy, valvular heart disease, hypertension, hyperlipidemia, congestive heart failure, chronic nicotine use, and chronic alcohol use. Patient follows in the office with Dr. Hoffman. We have been asked to see the patient in consultation for congestive heart failure. Patient examined at the bedside. Patient presented to the hospital with a chief complaint of bright red blood in his stools. He lizzie es having any pain with defecation. He states however afterwards he began to have left-sided abdominal pain. He denies any chest pain or pressure. He denies any shortness of breath. It is noted that the patient underwent surgery with Dr. Padilla on October 05, 2023 and had a percutaneous endovascular aortic repair and balloon angioplasty of left common iliac and external iliac artery. The patient is prescribed aspirin and Plavix on an outpatient basis. Patient's hemoglobin on admission was 7.2. Repeat 5.9. He is currently receiving RBC transfusion. The patient does have a history of anemia with hemoglobins as low as 4.9. DIAGNOSTICS: - Chest xray improved scattered airspace opacities compared to prior with persistent scattered airspace opacities - CTA abdomen and pelvis: Aortobiiliac stent graft is present and patent. The excluded lumen measuring up to 6 x 5.8 cm. No evidence for endoleak. Dilation of the common iliac artery on the right up to 2.5 cm. No evidence for intr amural hematoma on noncontrast imaging. There is scattered atherosclerotic plaque throughout the remainder of the abdominal aorta. The visualized major branches of the aorta including the celiac axis and superior mesenteric axis are patent. The superior mesenteric axis is calcified plaque with at least 50% stenosis. Bilateral renal arteries are patent there may be due to left renal artery present.. Severe coronary artery atherosclerosis. Colonic diverticulosis. Mild cardiomegaly. Large cystic lesion in the left upper quadrant unclear if this is coming from the pancreas versus kidneys versus postsurgical seroma. - Laboratory data: WBC 20.2. Hemoglobin 5.9. Platelet count 347. Sodium 133. Potassium 3.5. BUN 16. Creatinine 0.60. Magnesium 1.6. Troponin negative x 1. - Current home cardiac medications include Lipitor 80 mg at night, Plavix 75 mg daily, Lasix 40 mg daily, Aldactone 25 mg daily, carvedilol 6.25 mg twice a day, lisinopril 2.5 mg at night - Most recent echocardiogram obtained in September 2023 revealed an ejection fraction 35 to 40%, at least moderate aortic calcification, trace TR, mild MR -Previous echocardiogram performed in August 2023 revealed ejection fraction 35%, moderate AR, moderate AAS, and dilated aorta at 5.7 cm - Most recent cardiac catheterization performed in February 2023 revealing elevated left-sided filling pressures, moderate pulmonary hypertension consistent with who group 2, normal pulmonary vascular resistance, and elevated systemic vascular resistance. - Patient underwent three-vessel CABG in February 2016 with ARRIAZA to LAD, VGPDA, V GOM1 REVIEW OF SYSTEMS: At the time of my exam: CONSTITUTIONAL: Denies fever or chills. HEENT: Denies blurred vision, vision changes, or eye pain. Denies hemoptysis CARDIOVASCULAR: Denies chest pain. Denies orthopnea. Denies PND. Denies palpitations RESPIRATORY: Denies shortness of breath. GASTROINTESTINAL: Reports left-sided abdominal pain. Denies nausea or vomiting. HEMATOLOGIC: Denies bleeding disorders. Reports bright red blood per rectum. GENITOURINARY: Denies any blood in urine. SKIN: Denies pruitis. Denies rash. PHYSICAL EXAM: VITAL SIGNS: Reviewed. GENERAL: Well-developed in no acute distress. HEENT: Head is normocephalic. Pupils are equal, round. Sclerae anicteric. Mucous membranes of the mouth are moist. Neck supple. Mild JVD LUNGS: Respirations even and unlabored. Lungs diminished bilaterally HEART: Regular rate and rhythm. S1 and S2 heard. Systolic murmur noted at the base and the apex ABDOMEN: Soft. Nondistended. Nontender. EXTREMITIES: Normal range of motion. No clubbing or cyanosis. Peripheral pulses intact. 1-2+ bilateral pitting lower extremity edema NEUROLOGIC: Awake and alert. Oriented x 3. ASSESSMENT: Bright red blood per rectum; on dual antiplatelet therapy outpatient Left-sided abdominal pain Acute on chronic anemia Acute exacerbation of heart failure with reduced EF Status post percutaneous endovascular aortic repair and balloon angioplasty of left common iliac and external iliac artery New right solid renal neoplasm, measuring 25mm, per CT Coronary artery disease with previous three-vessel CABG, 2016, ARRIAZA to LAD, VGPDA, VGOM1 Peripheral arterial disease Ischemic cardiomyopathy, ejection fraction 35 to 40% Valvular heart disease including trace TR, mild MR, and moderate aortic stenosis and regurgitation Hypertension Hyperlipidemia Nicotine dependence Alcohol abuse, patient reports daily etoh use PLAN: No need to repeat echocardiogram Obtain EKG Resume aspirin. Hold Plavix. GI and oncology have been consulted for evaluation of anemia. Await further recommendations Give 1 dose of IV Lasix 40 mg now and then resume oral Lasix 40 mg daily and Aldactone starting tomorrow Resume carvedilol and lisinopril with parameters to hold for systolic blood pressure less than 100 Further recommendations pending patient course Nurse practitioner note has been reviewed by physician. Signing provider agrees with the documented findings, assessment, and plan of care documented by [employer]IST as a scribe. Past Medical History Past Medical History: Coronary Artery Disease (CAD), Heart Failure, Hyperlipidemia, Hypertension, Vascular Disorder Additional Past Medical History / Comment(s): aortic aneusrym, herniated disc, peripheral vascular disease Last Myocardial Infarction Date:: 02/2023 History of Any Multi-Drug Resistant Organisms: None Reported Past Surgical History: Appendectomy, Coronary Bypass/CABG, Orthopedic Surgery Additional Past Surgical History / Comment(s): Right rotater cuff repair, L first and second toe removal Past Anesthesia/Blood Transfusion Reactions: No Reported Reaction Past Psychological History: No Psychological Hx Reported Smoking Status: Current some day smoker, Light tobacco smoker Past Alcohol Use History: Daily, Occasional Additional Past Alcohol Use History / Comment(s): has smoked since 18yrs. cutting down to quit. Past Drug Use History: Marijuana Additional Drug Use History / Comment(s): Pt aware not to use 24hrs before procedure - Past Family History Father Family Medical History: Coronary Artery Disease (CAD) Additional Family Medical History / Comment(s): triple bypass Mother Family Medical History: Coronary Artery Disease (CAD), Dementia Medications and Allergies Home Medications Medication Instructions Recorded Confirmed Type Clopidogrel [Plavix] 75 mg PO DAILY #30 tab 02/22/16 10/10/23 Rx Montelukast [Singulair] 10 mg PO HS #30 tab 02/22/16 10/10/23 Rx lisinopriL [Zestril] 2.5 mg PO HS #30 tab 02/22/16 10/10/23 Rx Loratadine [Claritin] 10 mg PO DAILY 09/08/20 10/10/23 History Atorvastatin [Lipitor] 80 mg PO HS 09/20/23 10/10/23 History Omeprazole [PriLOSEC] 20 mg PO AC-BID 09/20/23 10/10/23 History Spironolactone [Aldactone] 25 mg PO DAILY 09/20/23 10/10/23 History Acetaminophen Tab [Tylenol] 650 mg PO Q6HR PRN tab 09/25/23 10/10/23 Rx Folic Acid 1 mg PO DAILY tab 09/25/23 10/10/23 Rx Furosemide [Lasix] 40 mg PO DAILY #30 tablet 09/25/23 10/10/23 Rx Gabapentin 600 mg PO TID #9 tab 09/25/23 10/10/23 Rx Magnesium Citrate and Oxide 500 mg PO DAILY #30 cap 09/25/23 10/10/23 Rx [Magnesium] Piperacillin-Tazobactam [Zosyn] 3.375 gm IVPB Q8HR #120 each 09/25/23 10/10/23 Rx Thiamine [Vitamin B-1] 100 mg PO DAILY tab 09/25/23 10/10/23 Rx polyethylene glycoL 3350 [Miralax] 17 gm PO DAILY PRN 10/05/23 10/10/23 History HYDROcodone/APAP 5-325MG [[place] 1 tab PO BID 10/10/23 10/10/23 History 5-325] Multivitamins, Thera [Multivitamin 1 tab PO DAILY 10/10/23 10/10/23 History (formulary)] carvediloL [Coreg] 6.25 mg PO BID-W/MEALS 10/10/23 10/10/23 History Allergies Allergy/AdvReac Type Severity Reaction Status Date / Time No Known Allergies Allergy Verified 10/10/23 16:55 Physical Exam Vitals: Vital Signs Temp Pulse Pulse Resp BP BP Pulse Ox 10/11/23 07:37 98.6 F 94 16 129/72 100 10/11/23 05:52 98.3 F 82 14 108/51 10/11/23 05:32 98.4 F 86 14 105/56 100 10/11/23 05:25 14 100 10/11/23 05:22 99.0 F 83 14 102/44 10/11/23 03:50 88 87/47 10/11/23 02:28 90 91/40 10/11/23 02:20 88 98/40 10/11/23 01:55 90 97/40 10/11/23 01:40 99.3 F 90 14 80/40 93 L 10/11/23 01:20 90 80/44 10/10/23 22:00 99.2 F 98 16 99/54 98 10/10/23 21:38 92 10/10/23 21:25 93 10/10/23 21:23 99 18 112/60 100 10/10/23 20:00 97 18 115/58 98 10/10/23 15:17 97.7 F 103 H 17 120/54 88 L Intake and Output 10/10/23 10/11/23 10/11/23 22:59 06:59 14:59 Intake Total 0 Output Total 200 Balance -200 Intake: Blood Product 0 Unit 0 Output: Urine 200 Other: Voiding Method Urinal Urinal # Voids 1 Weight 65.771 kg Results 10/11/23 04:20 10/11/23 04:20 Cardiac Enzymes 10/10/23 10/10/23 10/11/23 Range/Units 15:32 15:32 04:20 AST 26 27 (17-59) U/L Troponin I <0.012 (0.000-0.034) ng/mL Coagulation 10/10/23 Range/Units 15:32 PT 13.3 H (10.0-12.5) sec APTT 25.2 (22.0-30.0) sec CBC 10/10/23 10/11/23 Range/Units 15:32 04:20 WBC 9.3 20.2 H (3.8-10.6) k/uL RBC 2.63 L 2.19 L (4.30-5.90) m/uL Hgb 7.2 L 5.9 L* (13.0-17.5) gm/dL Hct 22.2 L 18.4 L* (39.0-53.0) % Plt Count 389 347 (150-450) k/uL Comprehensive Metabolic Panel 10/10/23 10/11/23 Range/Units 15:32 04:20 Sodium 132 L 133 L (137-145) mmol/L Potassium 3.2 L 3.5 (3.5-5.1) mmol/L Chloride 100 101 (98-107) mmol/L Carbon Dioxide 24 29 (22-30) mmol/L BUN 20 16 (9-20) mg/dL Creatinine 0.57 L 0.60 L (0.66-1.25) mg/dL Glucose 75 75 (74-99) mg/dL Calcium 8.4 8.0 L (8.4-10.2) mg/dL AST 26 27 (17-59) U/L ALT 22 21 (4-49) U/L Alkaline Phosphatase 103 98 (38-126) U/L Total Protein 5.5 L 4.8 L (6.3-8.2) g/dL Albumin 2.8 L 2.4 L (3.5-5.0) g/dL Current Medications Generic Name Dose Route Start Last Admin Trade Name Freq PRN Reason Stop Dose Admin Hydrocodone Bitart/Acetaminophen 1 each 10/10/23 23:00 10/11/23 07:42 Hydrocodone/Apap 5-325mg 1 Each Tab PO 1 each TID LIZA Administration Atorvastatin Calcium 80 mg 10/10/23 23:00 10/10/23 22:38 Atorvastatin 80 Mg Tab PO 80 mg HS LIZA Administration Gabapentin 600 mg 10/10/23 23:00 10/11/23 07:42 Gabapentin 300 Mg Cap PO 600 mg TID LIZA Administration Piperacillin Sod/Tazobactam 100 mls @ 25 mls/hr 10/11/23 04:00 10/11/23 04:41 Sod 3.375 gm/ Sodium Chloride IVPB 25 mls/hr Q8H LIZA Administration Protocol Morphine Sulfate 4 mg 10/10/23 16:10 Morphine Sulfate 4 Mg/Ml Syringe IVP Q6HR PRN Pain Naloxone HCl 0.2 mg 10/10/23 18:58 Naloxone 0.4 Mg/Ml 1 Ml Vial IV Q2M PRN Opioid Reversal Ondansetron HCl 4 mg 10/10/23 18:58 Ondansetron 4 Mg/2 Ml Vial IVP Q8HR PRN Nausea And Vomiting Pantoprazole Sodium 40 mg 10/11/23 09:00 10/11/23 07:42 Pantoprazole 40 Mg/10 Ml Vial IV 40 mg DAILY LIZA Administration Intake and Output 10/10/23 10/11/23 10/11/23 22:59 06:59 14:59 Intake Total 0 Output Total 200 Balance -200 Intake: Blood Product 0 Unit 0 Output: Urine 200 Other: Voiding Method Urinal Urinal # Voids 1 Weight 65.771 kg 10/11/23 04:20 10/11/23 04:20
[2023-10-11] MEDS: ASPIRIN 81 MG PO SCH (12:17)
[2023-10-11 13:10] LABS: Anisocytosis Slight; Basophils # (A) 0.1 k/uL (0-0.2); Basophils % (A) 0 %; Eosinophils # (A) 0.6 k/uL (0-0.7); Eosinophils % (A) 3 %; HCT 25.6 % (39.0-53.0); Hypochromasia Marked; Lymphocytes # (A) 0.3 k/uL (1.0-4.8); Lymphocytes % (A) 2 %; MCH 28.5 pg (25.0-35.0); MCHC 32.8 g/dL (31.0-37.0); MCV 86.7 fL (80.0-100.0); Mean Platelet Volume 7.3; Monocytes # (A) 0.8 k/uL (0-1.0); Monocytes % (A) 4 %; Neutrophils # (A) 18.8 k/uL (1.3-7.7); Neutrophils % (A) 90 %; Platelet Count 351 k/uL (150-450); Poikilocytosis Slight; RBC 2.95 m/uL (4.30-5.90); WBC 20.8 k/uL (3.8-10.6)
[2023-10-11 13:25] LABS: HGB 8.4 gm/dL (13.0-17.5)
[2023-10-11 13:35] VITALS: BMI 22.0
--- NOTE | 2023-10-11 13:53 | P.CONS ---
History of Present Illness - Reason for Consult Consult date: 10/11/23 GI bleed Requesting physician: Manuel Powers - Chief Complaint GI bleed, weakness, fall - History of Present Illness This is a 73-year-old male with a past medical history significant for coronary artery disease with previous CABG, peripheral arterial disease, recent endovascular repair of abdominal aortic aneurysm, ischemic cardiomyopathy, valvular heart disease, hypertension, hyperlipidemia, congestive heart failure, chronic nicotine use, and chronic alcohol use. Patient presented to the hospital with a chief complaint of bright red blood in his stools x 2 yesterday. Patient states painless bowel movements, no abdominal pain nausea or vomiting. He does state that he has been having left-sided abdominal/back pain. He denies any chest pain or pressure. He denies any shortness of breath. It is noted that the patient underwent surgery with Dr. Padilla on October 05, 2023 and had a percutaneous endovascular aortic repair and balloon angioplasty of left common iliac and external iliac artery. The patient is prescribed aspirin and Plavix on an outpatient basis. Patient's hemoglobin on admission was 7.2. Repeat 5.9. He is currently receiving RBC transfusion. The patient does have a history of anemia with hemoglobins as low as 4.9. He also has a history of GI bleed and was seen in our emergency department in February 2023 and transferred to [facility] where he states he had an upper and lower endoscopy. Reports are not available at this time but he states that they did not find anything. Review of Systems REVIEW OF SYSTEMS: CARDIOPULMONARY: No chest pain or shortness of breath. Gastrointestinal: No abdominal pain. No nausea or vomiting. No hematemesis, coffee-ground emesis. Bright red blood per rectum mixed with clots. GENITOURINARY: No dysuria or hematuria. MUSCULOSKELETAL: Reports normal range of motion. Joint pain. SKIN: No rashes. No jaundice. ENDOCRINE: No chills, fevers. No excessive weight gain or loss. No polydipsia or polyuria. PSYCHIATRIC: Unremarkable. NEUROLOGY: No change in mental status. Denies dizziness, headache. Weakness and numbness in legs that caused him to fall. ENT: Vision unremarkable. CONSTITUTIONAL: No recent weight loss. No fever, chills, night sweats. Past Medical History Past Medical History: Coronary Artery Disease (CAD), Heart Failure, Hyperlipidemia, Hypertension, Vascular Disorder Additional Past Medical History / Comment(s): aortic aneusrym, herniated disc, peripheral vascular disease Last Myocardial Infarction Date:: 02/2023 History of Any Multi-Drug Resistant Organisms: None Reported Past Surgical History: Appendectomy, Coronary Bypass/CABG, Orthopedic Surgery Additional Past Surgical History / Comment(s): Right rotater cuff repair, L first and second toe removal Past Anesthesia/Blood Transfusion Reactions: No Reported Reaction Past Psychological History: No Psychological Hx Reported Smoking Status: Current some day smoker, Light tobacco smoker Past Alcohol Use History: Daily, Occasional Additional Past Alcohol Use History / Comment(s): has smoked since 18yrs. cutting down to quit. Past Drug Use History: Marijuana Additional Drug Use History / Comment(s): Pt aware not to use 24hrs before procedure - Past Family History Father Family Medical History: Coronary Artery Disease (CAD) Additional Family Medical History / Comment(s): triple bypass Mother Family Medical History: Coronary Artery Disease (CAD), Dementia Medications and Allergies Home Medications Medication Instructions Recorded Confirmed Type Clopidogrel [Plavix] 75 mg PO DAILY #30 tab 02/22/16 10/10/23 Rx Montelukast [Singulair] 10 mg PO HS #30 tab 02/22/16 10/10/23 Rx lisinopriL [Zestril] 2.5 mg PO HS #30 tab 02/22/16 10/10/23 Rx Loratadine [Claritin] 10 mg PO DAILY 09/08/20 10/10/23 History Atorvastatin [Lipitor] 80 mg PO HS 09/20/23 10/10/23 History Omeprazole [PriLOSEC] 20 mg PO AC-BID 09/20/23 10/10/23 History Spironolactone [Aldactone] 25 mg PO DAILY 09/20/23 10/10/23 History Acetaminophen Tab [Tylenol] 650 mg PO Q6HR PRN tab 09/25/23 10/10/23 Rx Folic Acid 1 mg PO DAILY tab 09/25/23 10/10/23 Rx Furosemide [Lasix] 40 mg PO DAILY #30 tablet 09/25/23 10/10/23 Rx Gabapentin 600 mg PO TID #9 tab 09/25/23 10/10/23 Rx Magnesium Citrate and Oxide 500 mg PO DAILY #30 cap 09/25/23 10/10/23 Rx [Magnesium] Piperacillin-Tazobactam [Zosyn] 3.375 gm IVPB Q8HR #120 each 09/25/23 10/10/23 Rx Thiamine [Vitamin B-1] 100 mg PO DAILY tab 09/25/23 10/10/23 Rx polyethylene glycoL 3350 [Miralax] 17 gm PO DAILY PRN 10/05/23 10/10/23 History HYDROcodone/APAP 5-325MG [[place] 1 tab PO BID 10/10/23 10/10/23 History 5-325] Multivitamins, Thera [Multivitamin 1 tab PO DAILY 10/10/23 10/10/23 History (formulary)] carvediloL [Coreg] 6.25 mg PO BID-W/MEALS 10/10/23 10/10/23 History Allergies Allergy/AdvReac Type Severity Reaction Status Date / Time No Known Allergies Allergy Verified 10/10/23 16:55 Physical Exam Vitals: Vital Signs Temp Pulse Pulse Resp BP BP Pulse Ox 10/11/23 07:37 98.6 F 94 16 129/72 100 10/11/23 05:52 98.3 F 82 14 108/51 10/11/23 05:32 98.4 F 86 14 105/56 100 10/11/23 05:25 14 100 10/11/23 05:22 99.0 F 83 14 102/44 10/11/23 03:50 88 87/47 10/11/23 02:28 90 91/40 10/11/23 02:20 88 98/40 10/11/23 01:55 90 97/40 10/11/23 01:40 99.3 F 90 14 80/40 93 L 10/11/23 01:20 90 80/44 10/10/23 22:00 99.2 F 98 16 99/54 98 10/10/23 21:38 92 10/10/23 21:25 93 10/10/23 21:23 99 18 112/60 100 10/10/23 20:00 97 18 115/58 98 10/10/23 15:17 97.7 F 103 H 17 120/54 88 L Intake and Output 10/10/23 10/11/23 10/11/23 22:59 06:59 14:59 Intake Total 0 Output Total 200 Balance -200 Intake: Blood Product 0 Unit 0 Output: Urine 200 Other: Voiding Method Urinal Urinal # Voids 1 Weight 65.771 kg General appearance: The patient is alert, oriented, appears in no acute distress. HET: Head is normocephalic and atraumatic. Conjunctiva pink. Sclera anicteric. Neck: Supple without lymphadenopathy. Trachea midline. Heart: Regular. Lungs: Equal expansion, normal respiratory effort. Abdomen: Soft, nontender, nondistended with bowel sounds. No guarding or rigidity. Skin: No rashes. No jaundice. Extremities: Normal skin color and turgor. No pedal edema. Neurological: No focal deficits. Alert and oriented x3. Results CBC & Chem 7: 10/11/23 12:37 10/11/23 04:20 Labs: Abnormal Lab Results - Last 24 Hours (Table) 10/10/23 10/10/23 10/10/23 Range/Units 15:32 15:32 15:32 WBC (3.8-10.6) k/uL RBC 2.63 L (4.30-5.90) m/uL Hgb 7.2 L (13.0-17.5) gm/dL Hct 22.2 L (39.0-53.0) % RDW 16.7 H (11.5-15.5) % Neutrophils # (1.3-7.7) k/uL Neutrophils # (Manual) 8.84 H (1.3-7.7) k/uL Lymphocytes # (1.0-4.8) k/uL Lymphocytes # (Manual) 0.09 L (1.0-4.8) k/uL PT 13.3 H (10.0-12.5) sec INR 1.3 H (<1.2) Sodium 132 L (137-145) mmol/L Potassium 3.2 L (3.5-5.1) mmol/L Creatinine 0.57 L (0.66-1.25) mg/dL Calcium (8.4-10.2) mg/dL Magnesium 1.4 L (1.6-2.3) mg/dL Total Protein 5.5 L (6.3-8.2) g/dL Albumin 2.8 L (3.5-5.0) g/dL Crossmatch 10/10/23 10/11/2310/11/24 Range/Units 21:20 04:20 04:20 WBC 20.2 H (3.8-10.6) k/uL RBC 2.19 L (4.30-5.90) m/uL Hgb 5.9 L* (13.0-17.5) gm/dL Hct 18.4 L* (39.0-53.0) % RDW 16.7 H (11.5-15.5) % Neutrophils # 18.6 H (1.3-7.7) k/uL Neutrophils # (Manual) (1.3-7.7) k/uL Lymphocytes # 0.3 L (1.0-4.8) k/uL Lymphocytes # (Manual) (1.0-4.8) k/uL PT (10.0-12.5) sec INR (<1.2) Sodium 133 L (137-145) mmol/L Potassium (3.5-5.1) mmol/L Creatinine 0.60 L (0.66-1.25) mg/dL Calcium 8.0 L (8.4-10.2) mg/dL Magnesium (1.6-2.3) mg/dL Total Protein 4.8 L (6.3-8.2) g/dL Albumin 2.4 L (3.5-5.0) g/dL Crossmatch See Detail Assessment and Plan Assessment: 1. GI bleed, likely diverticular 2. Acute on chronic anemia 3. Renal mass 4. Heart failure 5. Nicotine dependence 6. Alcohol abuse, daily EtOH use 7. Coronary artery disease 8. Ischemic cardiomyopathy 9. Peripheral arterial disease 10. Recent abdominal aortic aneurysm endovascular repair Plan: 1. Continue with symptomatic and supportive care 2. Agree with blood transfusion 3. Daily CBC, transfuse for hemoglobin less than 7 4. Please get records from [facility] for EGD and colonoscopy in February 2023 5. Patient may have clear liquid diet, n.p.o. after midnight 6. Will plan for EGD and colonoscopy tomorrow as records could not be received 7. Bowel prep this evening Thank you for this consultation, we will continue to follow. Dr. Brandan Rebollar I agree with the dictator's note, documented as a scribe by Eliane Jacinto.
--- NOTE | 2023-10-11 13:56 | P.HPIM ---
History of Present Illness H&P Date: 10/11/23 Chief Complaint: Rectal bleeding his is a 73-year-old gentleman with past medical history significant for PAD, CAD, CABG, GI bleed, anemia-hemoglobin as low as 4.9, herniated disc, hypertension, hyperlipidemia, nicotine dependence, daily alcohol use-reports 2X 12 ounce beers daily, recent inpatient admission, discharged on 09/25/2023 with Left great toe,wet gangrene with subcutaneous gas, follows with the wound care center secondary to chronic left foot wound with prior second and third toe amputation, underwent left great toe amputation. Wound cultures grew gram-negative bacilli, Citrobacter braakii. PICC line placed, receiving IV antibiotics outpatient. Patient also had a recent percutaneous endovascular aortic repair and balloon angioplasty of left common iliac and external iliac artery with Dr. Padilla on October 05, 2023, placed on aspirin and Plavix outpatient. Yesterday presented to the ER with rectal bleeding x 2, bright painless red blood in stools x 1 day. Reports abdominal cramping, left-sided abdominal pain. reports no recent illness, no diarrhea prior, no cough congestion. chest pain palpitations or shortness of breath. Chest xray improved scattered airspace opacities compared to prior with persistent scattered airspace opacities. CTA a bdomen and pelvis: Aortobiiliac stent graft is present and patent. The excluded lumen measuring up to 6 x 5.8 cm. No evidence for endoleak. Dilation of the common iliac artery on the right up to 2.5 cm. No evidence for intramural hematoma on noncontrast imaging. There is scattered atherosclerotic plaque throughout the remainder of the abdominal aorta. The visualized major branches of the aorta including the celiac axis and superior mesenteric axis are patent. The superior mesenteric axis is calcified plaque with at least 50% stenosis. Bilateral renal arteries are patent there may be due to left renal artery present.. Severe coronary artery atherosclerosis. Colonic diverticulosis. Mild cardiomegaly. Large cystic lesion in the left upper quadrant unclear if this is coming from the pancreas versus kidneys versus postsurgical seroma.Tmax 99.3, WBC 20.2, lactic acid 1. hemoglobin admission 7.2, decreased to 5.9, receiving transfusion of packed RBCs. 347. Sodium 133, potassium 3.5, bicarb 29, BUN 16, creatinine 0.6, glucose 75, magnesium 1.6, LFTs within normal limits, lipase 58, albumin 2.4 Review of Systems ROS Statement: Those systems with pertinent positive or pertinent negative responses have been documented in the HPI. ROS Other: All systems not noted in ROS Statement are negative. Past Medical History Past Medical History: Coronary Artery Disease (CAD), Heart Failure, Hyperlipidemia, Hypertension, Vascular Disorder Additional Past Medical History / Comment(s): aortic aneusrym, herniated disc, peripheral vascular disease Last Myocardial Infarction Date:: 02/2023 History of Any Multi-Drug Resistant Organisms: None Reported Past Surgical History: Appendectomy, Coronary Bypass/CABG, Orthopedic Surgery Additional Past Surgical History / Comment(s): Right rotater cuff repair, L first and second toe removal Past Anesthesia/Blood Transfusion Reactions: No Reported Reaction Past Psychological History: No Psychological Hx Reported Smoking Status: Current some day smoker, Light tobacco smoker Past Alcohol Use History: Daily, Occasional Additional Past Alcohol Use History / Comment(s): has smoked since 18yrs. cutting down to quit. Past Drug Use History: Marijuana Additional Drug Use History / Comment(s): Pt aware not to use 24hrs before procedure - Past Family History Father Family Medical History: Coronary Artery Disease (CAD) Additional Family Medical History / Comment(s): triple bypass Mother Family Medical History: Coronary Artery Disease (CAD), Dementia Medications and Allergies Home Medications Medication Instructions Recorded Confirmed Type Clopidogrel [Plavix] 75 mg PO DAILY #30 tab 02/22/16 10/10/23 Rx Montelukast [Singulair] 10 mg PO HS #30 tab 02/22/16 10/10/23 Rx lisinopriL [Zestril] 2.5 mg PO HS #30 tab 02/22/16 10/10/23 Rx Loratadine [Claritin] 10 mg PO DAILY 09/08/20 10/10/23 History Atorvastatin [Lipitor] 80 mg PO HS 09/20/23 10/10/23 History Omeprazole [PriLOSEC] 20 mg PO AC-BID 09/20/23 10/10/23 History Spironolactone [Aldactone] 25 mg PO DAILY 09/20/23 10/10/23 History Acetaminophen Tab [Tylenol] 650 mg PO Q6HR PRN tab 09/25/23 10/10/23 Rx Folic Acid 1 mg PO DAILY tab 09/25/23 10/10/23 Rx Furosemide [Lasix] 40 mg PO DAILY #30 tablet 09/25/23 10/10/23 Rx Gabapentin 600 mg PO TID #9 tab 09/25/23 10/10/23 Rx Magnesium Citrate and Oxide 500 mg PO DAILY #30 cap 09/25/23 10/10/23 Rx [Magnesium] Piperacillin-Tazobactam [Zosyn] 3.375 gm IVPB Q8HR #120 each 09/25/23 10/10/23 Rx Thiamine [Vitamin B-1] 100 mg PO DAILY tab 09/25/23 10/10/23 Rx polyethylene glycoL 3350 [Miralax] 17 gm PO DAILY PRN 10/05/23 10/10/23 History HYDROcodone/APAP 5-325MG [S[place]ry 1 tab PO BID 10/10/23 10/10/23 History 5-325] Multivitamins, Thera [Multivitamin 1 tab PO DAILY 10/10/23 10/10/23 History (formulary)] carvediloL [Coreg] 6.25 mg PO BID-W/MEALS 10/10/23 10/10/23 History Allergies Allergy/AdvReac Type Severity Reaction Status Date / Time No Known Allergies Allergy Verified 10/10/23 16:55 Physical Exam Vitals: Vital Signs Temp Pulse Pulse Resp BP BP Pulse Ox 10/11/23 09:05 98.6 F 88 16 121/50 98 10/11/23 07:37 98.6 F 94 16 129/72 100 10/11/23 05:52 98.3 F 82 14 108/51 10/11/23 05:32 98.4 F 86 14 105/56 100 10/11/23 05:25 14 100 10/11/23 05:22 99.0 F 83 14 102/44 10/11/23 03:50 88 87/47 10/11/23 02:28 90 91/40 10/11/23 02:20 88 98/40 10/11/23 01:55 90 97/40 10/11/23 01:40 99.3 F 90 14 80/40 93 L 10/11/23 01:20 90 80/44 10/10/23 22:00 99.2 F 98 16 99/54 98 10/10/23 21:38 92 10/10/23 21:25 93 10/10/23 21:23 99 18 112/60 100 10/10/23 20:00 97 18 115/58 98 10/10/23 15:17 97.7 F 103 H 17 120/54 88 L Intake and Output 10/10/23 10/11/23 10/11/23 22:59 06:59 14:59 Intake Total 0 310 Output Total 200 1000 Balance -200 -690 Intake: Blood Product 0 310 Rc As-1 Unit 0 310 [id number] Output: Urine 200 1000 Other: Voiding Method Urinal Urinal # Voids 1 # Bowel Movements 1 Weight 65.771 kg 65.771 kg PHYSICAL EXAMINATION: VS: As above GENERAL: Alert and oriented 3, sitting up at side of bed, no acute distress, no jaundice HEENT: Normocephalic, atraumatic. Pupils equal and reactive. Sclera anicteric NECK: Supple, no JVD CHEST EXAMINATION: Unlabored, equal air entry, fine right bibasilar crackles. CARDIAC: Normal S1, S2 with no gallops. Systolic murmurs ABDOMEN: Soft. Nondistended, nontender, Bowel sounds normal. No guarding, no rigidity. EXTREMITIES: No pedal edema, no cyanosis NEUROLOGICAL: Cranial nerves II through XII grossly intact ,No focal deficits noted Skin: No rash, warm and dry. Results CBC & Chem 7: 10/11/23 12:37 10/11/23 04:20 Labs: Abnormal Lab Results - Last 24 Hours (Table) 10/10/23 10/10/23 10/10/23 Range/Units 15:32 15:32 15:32 WBC (3.8-10.6) k/uL RBC 2.63 L (4.30-5.90) m/uL Hgb 7.2 L (13.0-17.5) gm/dL Hct 22.2 L (39.0-53.0) % RDW 16.7 H (11.5-15.5) % Neutrophils # (1.3-7.7) k/uL Neutrophils # (Manual) 8.84 H (1.3-7.7) k/uL Lymphocytes # (1.0-4.8) k/uL Lymphocytes # (Manual) 0.09 L (1.0-4.8) k/uL PT 13.3 H (10.0-12.5) sec INR 1.3 H (<1.2) Sodium 132 L (137-145) mmol/L Potassium 3.2 L (3.5-5.1) mmol/L Creatinine 0.57 L (0.66-1.25) mg/dL Calcium (8.4-10.2) mg/dL Magnesium 1.4 L (1.6-2.3) mg/dL Total Protein 5.5 L (6.3-8.2) g/dL Albumin 2.8 L (3.5-5.0) g/dL Crossmatch 10/10/23 10/11/23 10/11/23 Range/Units 21:20 04:20 04:20 WBC 20.2 H (3.8-10.6) k/uL RBC 2.19 L (4.30-5.90) m/uL Hgb 5.9 L* (13.0-17.5) gm/dL Hct 18.4 L* (39.0-53.0) % RDW 16.7 H (11.5-15.5) % Neutrophils # 18.6 H (1.3-7.7) k/uL Neutrophils # (Manual) (1.3-7.7) k/uL Lymphocytes # 0.3 L (1.0-4.8) k/uL Lymphocytes # (Manual) (1.0-4.8) k/uL PT (10.0-12.5) sec INR (<1.2) Sodium 133 L (137-145) mmol/L Potassium (3.5-5.1) mmol/L Creatinine 0.60 L (0.66-1.25) mg/dL Calcium 8.0 L (8.4-10.2) mg/dL Magnesium (1.6-2.3) mg/dL Total Protein 4.8 L (6.3-8.2) g/dL Albumin 2.4 L (3.5-5.0) g/dL Crossmatch See Detail Thrombosis Risk Factor Assmnt - Choose All That Apply Any of the Below Risk Factors Present?: No Assessment and Plan Assessment: Acute GI bleed,on dual platelet therapy OP, possible diverticular bleed , in a patient with history of GI bleeding with prior endoscopies at [facility]-he reports notmal. Records ordered. Acute on chronic anemia Acute on chronic CHF, systolic dysfunction, EF 35%. Acute hypoxic respiratory failure, multifactorial secondary to all the above New right solid renal mass, measuring up to 25 mm, urology consulted. Large cystic lesion in the left upper quadrant unclear with this coming from the pancreas versus the kidney versus postsurgical seroma Recent inpatient admission, discharged on 09/25/2023 with Left great toe,wet gangrene with subcutaneouos gas, in a patient with history of PAD, follows with the wound care center secondary to chronic left foot wound with prior second and third toe amputation. Status post left great toe amputation. Wound cultures reporting gram-negative bacilli, Citrobacter braakii. PICC line placed, receiving IV antibiotics at [facility]. Recent abdominal aortic aneurysm endovascular repair Colonic diverticulosis Ischemic cardiomyopathy Aortic stenosis Coronary disease with history of CABG Hypertension Hyperlipidemia Nicotine dependence Daily alcohol use Marijuana use Plan: Continue on current medication regimen, monitoring and symptomatic treatment. Serial CBCs, transfuse for hemoglobin less than 7. IV fluid hydration, PPI for GI prophylaxis. Anticoagulation on hold. Cardiology, GI, urology and hematology on consult. Prognosis guarded given multiple complex medical issues. The impression and plan of care has been dictated as directed. : I performed a history and examination of this patient, discussed the same with the dictator. I agree with the dictator's note ,documented as a scribe. Any additional findings or plans will be noted.
[2023-10-11] MEDS: PANTOPRAZOLE 40 MG/10 ML VIAL IVP ONE (13:59)
--- NOTE | 2023-10-11 14:55 | P.CNPUL ---
History of Present Illness Consult date: 10/11/23 Requesting physician: Maggy Siegel Reason for consult: other Chief complaint: Bright red bleeding per rectum. History of present illness: Pulmonary consult dated October 11, 2023. 73-year-old male with a history of multiple medical problems including hypertension, coronary disease, heart failure, hyperlipidemia, hypertension, and peripheral vascular occlusive disease. The patient presents to the emergency department, on October 10, with bright red bleeding per rectum. The patient apparently was recently seen at [facility], and had a colonoscopy, and was told that everything was okay. The patient did have abdominal pain, but also had back pain. Had some mild shortness of breath. The patient is seen today in the observation unit, room 162. The patient's initial hemoglobin was 5.9. 2 units of blood was ordered. After the first unit, his hemoglobin was 8.4. Subsequent to that, he had 2 additional bowel movements that were bloody. The bleeding started yesterday, October 10. He has had 1 prior episode of GI bleed. 2 units of blood were ordered, and he is getting his second unit currently. His vital signs are stable. He is on 2 L of oxygen. Cardiology was consulted, as was GI, and hematology. The patient is on Plavix and aspirin. In addition, the patient was recently here and saw one of the vascular surgeons, for a vascular procedure. Current labs include a white count 20.8, hemoglobin 8.4, hematocrit 25.6, and a platelet count of 351,000. Coagulation studies included PT of 13.3, INR 1.3, and a PTT of 25.2. Sodium 133, potassium 3.5, chlorides 101, CO2 29, BUN 16, creatinine 0.60. Calcium is 8. Albumin is 2.4. Chest x-ray showed improved airspace opacities, compared to a chest x-ray that was done on September 23 of this year. 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 Aortoiliac stent graft is present and patent. No evidence of leak. Diverticulosis, cardiomegaly, severe CAD, aortic valve leaflet calcifications, and large cystic lesion in the upper quadrant of the abdomen is also noted on CT. Review of Systems REVIEW OF SYSTEMS: CONSTITUTIONAL: [Negative.] NEUROLOGIC: [ Negative.] HEENT: [ Negative.] CARDIAC: [Negative.] PULMONARY: [Negative.] GI: Bright red bleeding per rectum, beginning yesterday. : [Negative.] RHEUMATOLOGIC: [ Negative.] IMMUNOLOGIC: [ Negative.] ENDOCRINE: [Negative. ] DERMATOLOGIC: [Negative.] Past Medical History Past Medical History: Coronary Artery Disease (CAD), Heart Failure, Hyperlipidemia, Hypertension, Vascular Disorder Additional Past Medical History / Comment(s): aortic aneusrym, herniated disc, peripheral vascular disease Last Myocardial Infarction Date:: 02/2023 History of Any Multi-Drug Resistant Organisms: None Reported Past Surgical History: Appendectomy, Coronary Bypass/CABG, Orthopedic Surgery Additional Past Surgical History / Comment(s): Right rotater cuff repair, L first and second toe removal Past Anesthesia/Blood Transfusion Reactions: No Reported Reaction Past Psychological History: No Psychological Hx Reported Smoking Status: Current some day smoker, Light tobacco smoker Past Alcohol Use History: Daily, Occasional Additional Past Alcohol Use History / Comment(s): has smoked since 18yrs. cutting down to quit. Past Drug Use History: Marijuana Additional Drug Use History / Comment(s): Pt aware not to use 24hrs before procedure - Past Family History Father Family Medical History: Coronary Artery Disease (CAD) Additional Family Medical History / Comment(s): triple bypass Mother Family Medical History: Coronary Artery Disease (CAD), Dementia Medications and Allergies Home Medications Medication Instructions Recorded Confirmed Type Clopidogrel [Plavix] 75 mg PO DAILY #30 tab 02/22/16 10/10/23 Rx Montelukast [Singulair] 10 mg PO HS #30 tab 02/22/16 10/10/23 Rx lisinopriL [Zestril] 2.5 mg PO HS #30 tab 02/22/16 10/10/23 Rx Loratadine [Claritin] 10 mg PO DAILY 09/08/20 10/10/23 History Atorvastatin [Lipitor] 80 mg PO HS 09/20/23 10/10/23 History Omeprazole [PriLOSEC] 20 mg PO AC-BID 09/20/23 10/10/23 History Spironolactone [Aldactone] 25 mg PO DAILY 09/20/23 10/10/23 History Acetaminophen Tab [Tylenol] 650 mg PO Q6HR PRN tab 09/25/23 10/10/23 Rx Folic Acid 1 mg PO DAILY tab 09/25/23 10/10/23 Rx Furosemide [Lasix] 40 mg PO DAILY #30 tablet 09/25/23 10/10/23 Rx Gabapentin 600 mg PO TID #9 tab 09/25/23 10/10/23 Rx Magnesium Citrate and Oxide 500 mg PO DAILY #30 cap 09/25/23 10/10/23 Rx [Magnesium] Piperacillin-Tazobactam [Zosyn] 3.375 gm IVPB Q8HR #120 each 09/25/23 10/10/23 Rx Thiamine [Vitamin B-1] 100 mg PO DAILY tab 09/25/23 10/10/23 Rx polyethylene glycoL 3350 [Miralax] 17 gm PO DAILY PRN 10/05/23 10/10/23 History HYDROcodone/APAP 5-325MG [Gaffney 1 tab PO BID 10/10/23 10/10/23 History 5-325] Multivitamins, Thera [Multivitamin 1 tab PO DAILY 10/10/23 10/10/23 History (formulary)] carvediloL [Coreg] 6.25 mg PO BID-W/MEALS 10/10/23 10/10/23 History Allergies Allergy/AdvReac Type Severity Reaction Status Date / Time No Known Allergies Allergy Verified 10/10/23 16:55 Physical Exam Osteopathic Statement: *. No significant issues noted on an osteopathic structural exam other than those noted in the History and Physical/Consult. Vitals: Vital Signs Temp Pulse Pulse Resp BP BP Pulse Ox 10/11/23 14:23 90 16 128/63 100 10/11/23 14:03 97.6 F 93 16 125/74 100 10/11/23 13:13 98.5 F 99 16 104/60 97 10/11/23 09:05 98.6 F 88 16 121/50 98 10/11/23 07:37 98.6 F 94 16 129/72 100 10/11/23 05:52 98.3 F 82 14 108/51 10/11/23 05:32 98.4 F 86 14 105/56 100 10/11/23 05:25 14 100 10/11/23 05:22 99.0 F 83 14 102/44 10/11/23 03:50 88 87/47 02/01/24 02:28 90 91/40 02/01/24 02:20 88 98/40 10/11/23 01:55 90 97/40 10/11/23 01:40 99.3 F 90 14 80/40 93 L 10/11/23 01:20 90 80/44 10/10/23 22:00 99.2 F 98 16 99/54 98 10/10/23 21:38 92 10/10/23 21:25 93 10/10/23 21:23 99 18 112/60 100 10/10/23 20:00 97 18 115/58 98 10/10/23 15:17 97.7 F 103 H 17 120/54 88 L Intake and Output 10/10/23 10/11/23 10/11/23 22:59 06:59 14:59 Intake Total 0 310 Output Total 200 1400 Balance -200 -1090 Intake: Blood Product 0 310 Unit 0 Rc As-1 Unit 0 310 [id number] Output: Urine 200 1400 Other: Voiding Method Urinal Urinal # Voids 1 # Bowel Movements 1 Weight 65.771 kg 65.771 kg No acute distress, oriented 3. On 2 L. No respiratory distress. HEENT examination is grossly unremarkable. Mucous membranes are moist. No oral lesions. Neck supple. Full range of motion. No adenopathy thyromegaly or neck vein distention. Cardiovascular examination reveals regular rhythm rate. S1-S2 normal. No S3 or S4. No discernible murmur noted. Heart rate 90 bpm. Lungs reveal clear breath sounds. Breath sounds are equal bilaterally. No adventitious lung sounds including wheezes rhonchi or crackles. Saturations at 100%. Abdomen soft without bowel sounds. No masses or tenderness. Extremities are intact. No cyanosis clubbing or edema. Skin is without rash or lesion. Neurologic examination is brief but nonfocal. Results - Laboratory Findings CBC and BMP: 10/11/23 12:37 10/11/23 04:20 PT/INR, D-dimer PT 13.3 sec (10.0-12.5) H 10/10/23 15:32 INR 1.3 (<1.2) H 10/10/23 15:32 Abnormal lab findings: Abnormal Labs 10/10/23 10/10/23 10/10/23 15:32 15:32 15:32 WBC RBC 2.63 L Hgb 7.2 L Hct 22.2 L RDW 16.7 H Neutrophils # Neutrophils # (Manual) 8.84 H Lymphocytes # Lymphocytes # (Manual) 0.09 L PT 13.3 H INR 1.3 H Sodium 132 L Potassium 3.2 L Creatinine 0.57 L Calcium Magnesium 1.4 L Total Protein 5.5 L Albumin 2.8 L Crossmatch 10/10/23 10/11/23 10/11/23 21:20 04:20 04:20 WBC 20.2 H RBC 2.19 L Hgb 5.9 L* Hct 18.4 L* RDW 16.7 H Neutrophils # 18.6 H Neutrophils # (Manual) Lymphocytes # 0.3 L Lymphocytes # (Manual) PT INR Sodium 133 L Potassium Creatinine 0.60 L Calcium 8.0 L Magnesium Total Protein 4.8 L Albumin 2.4 L Crossmatch See Detail 10/11/23 12:37 WBC 20.8 H RBC 2.95 L Hgb 8.4 L D Hct 25.6 L RDW 16.0 H Neutrophils # 18.8 H Neutrophils # (Manual) Lymphocytes # 0.3 L Lymphocytes # (Manual) PT INR Sodium Potassium Creatinine Calcium Magnesium Total Protein Albumin Crossmatch - Diagnostic Findings Chest x-ray: image reviewed Assessment and Plan Assessment: Bright red bleeding per rectum, in a patient with a recent colonoscopy, which was reported as normal. History of coronary artery disease, with previous bypass surgery. History of previous myocardial infarction, February 2023. Recent percutaneous endovascular aortic repair, selective bilateral iliofemoral angiogram, and percutaneous closure of bilateral common femoral arteries, September 2023. History of CHF. History of hyperlipidemia. History of hypertension. History of aortic aneurysm. History of ongoing tobacco use. Plan: Plan dated October 11, 2023. The patient will be admitted to the intensive care unit, for further monitoring and management. The patient's initial hemoglobin was 5.9. Repeat hemoglobin after the first unit was 8.4. Subsequent to that, the patient had 2 additional bloody bowel movements. The patient is currently receiving his second unit of blood. The patient has a history of hypertension, coronary disease, myocardial infarction, bypass grafting, CHF, hyperlipidemia, hypertension, peripheral vascular occlusive disease. The patient apparently had a recent colonoscopy at [facility], which was reported as normal. Labs, x-rays, and medications are reviewed. Cardiology, gastroenterology, and hematology were consulted. Time with Patient: Greater than 30
[2023-10-11] MEDS ORDERED: Potassium Replacement Protocol 1 EACH MISC MISCELLANE PRN (16:00)
[2023-10-11] MEDS ORDERED: Magnesium Replacement Protocol 1 EACH MISC MISCELLANE PRN (16:00)
[2023-10-11] MEDS: carvediloL 6.25 MG TAB PO SCH (17:55)
[2023-10-11] MEDS: PEG 3350 (236 GM/BTL) + LYTES 4,000 ML BOTTLE PO ONE (18:06)
[2023-10-11 18:27] LABS: Anisocytosis Slight; HCT 28.6 % (39.0-53.0); HGB 9.2 gm/dL (13.0-17.5); Hypochromasia Marked; MCH 28.7 pg (25.0-35.0); MCHC 32.2 g/dL (31.0-37.0); Platelet Count 337 k/uL (150-450); Poikilocytosis Slight; RBC 3.21 m/uL (4.30-5.90); RDW 16.2 % (11.5-15.5); WBC 17.7 k/uL (3.8-10.6)
[2023-10-11] MEDS: PANTOPRAZOLE 40 MG/10 ML VIAL IVP SCH (21:08)
[2023-10-12 01:04] LABS: % Iron Saturation 7.42 (15.00-50.00); Ferritin 36.4 ng/mL (22.0-322.0)
[2023-10-12] MEDS: MORPHINE SULFATE 4 MG/ML SYRINGE IVP PRN (02:42)
[2023-10-12 04:56] LABS: Anisocytosis Slight; Basophils % (A) 0 %; Eosinophils # (A) 0.8 k/uL (0-0.7); Eosinophils % (A) 6 %; HCT 27.5 % (39.0-53.0); HGB 8.9 gm/dL (13.0-17.5); Hypochromasia Moderate; Lymphocytes # (A) 0.3 k/uL (1.0-4.8); Lymphocytes % (A) 2 %; MCH 28.6 pg (25.0-35.0); MCHC 32.5 g/dL (31.0-37.0); Mean Platelet Volume 7.1; Monocytes # (A) 0.9 k/uL (0-1.0); Monocytes % (A) 7 %; Neutrophils # (A) 10.3 k/uL (1.3-7.7); Neutrophils % (A) 81 %; Platelet Count 341 k/uL (150-450); Poikilocytosis Slight; RBC 3.13 m/uL (4.30-5.90); RDW 16.3 % (11.5-15.5); WBC 12.7 k/uL (3.8-10.6)
[2023-10-12] MEDS: FUROSEMIDE 40 MG TAB PO SCH (08:30)
[2023-10-12] MEDS: SPIRONOLACTONE 25 MG TAB PO SCH (08:30)
--- NOTE | 2023-10-12 08:33 | P.GSCN ---
History of Present Illness Consult date: 10/12/23 History of present illness: 73 yo male in the icu for a gi bleed. the patient has muliple medical comorbidites including notable cad and pad. He had a ct scan on admission that identified a small mass [2.5cm] in the medial portion of the right kidney. we were asked to see the patient. This was seen on the ct scan in but not in 2017. There is no urine in the chart. His creatinine is normal at 0.6. there is also a cystic lesion in the left upper quadrant that has been present for years of indeterminate origin. There is no history of utis, stones, hematuria or previous urologic evaluation or surgery. He was not aware previously of this issue. Review of Systems All systems: negative - Constitutional Denies fever, Denies weight loss - EENT Eyes: denies blurred vision Ears, nose, mouth and throat: Denies dysphagia - Cardiovascular Denies chest pain, Denies shortness of breath - Respiratory Denies cough, Denies 7 - Gastrointestinal Reports as per HPI - Genitourinary Denies dysuria, Denies hematuria - Integumentary Denies rash, Denies unusual bruising - Neurological Denies headaches, Denies syncope - Hematologic/Lymphatic Denies easy bleeding, Denies easy bruising Past Medical History Past Medical History: Coronary Artery Disease (CAD), Heart Failure, Hyperlipidemia, Hypertension, Vascular Disorder Additional Past Medical History / Comment(s): aortic aneusrym, herniated disc, peripheral vascular disease Last Myocardial Infarction Date:: 02/2023 History of Any Multi-Drug Resistant Organisms: None Reported Past Surgical History: Appendectomy, Coronary Bypass/CABG, Orthopedic Surgery Additional Past Surgical History / Comment(s): Right rotater cuff repair, L first and second toe removal Past Anesthesia/Blood Transfusion Reactions: No Reported Reaction Past Psychological History: No Psychological Hx Reported Smoking Status: Current some day smoker, Light tobacco smoker Past Alcohol Use History: Daily, Occasional Additional Past Alcohol Use History / Comment(s): has smoked since 18yrs. cutting down to quit. Past Drug Use History: Marijuana Additional Drug Use History / Comment(s): Pt aware not to use 24hrs before procedure - Past Family History Father Family Medical History: Coronary Artery Disease (CAD) Additional Family Medical History / Comment(s): triple bypass Mother Family Medical History: Coronary Artery Disease (CAD), Dementia Medications and Allergies Home Medications Medication Instructions Recorded Confirmed Type Clopidogrel [Plavix] 75 mg PO DAILY #30 tab 02/22/16 10/10/23 Rx Montelukast [Singulair] 10 mg PO HS #30 tab 02/22/16 10/10/23 Rx lisinopriL [Zestril] 2.5 mg PO HS #30 tab 02/22/16 10/10/23 Rx Loratadine [Claritin] 10 mg PO DAILY 09/08/20 10/10/23 History Atorvastatin [Lipitor] 80 mg PO HS 09/20/23 10/10/23 History Omeprazole [PriLOSEC] 20 mg PO AC-BID 09/20/23 10/10/23 History Spironolactone [Aldactone] 25 mg PO DAILY 09/20/23 10/10/23 History Acetaminophen Tab [Tylenol] 650 mg PO Q6HR PRN tab 09/25/23 10/10/23 Rx Folic Acid 1 mg PO DAILY tab 09/25/23 10/10/23 Rx Furosemide [Lasix] 40 mg PO DAILY #30 tablet 09/25/23 10/10/23 Rx Gabapentin 600 mg PO TID #9 tab 09/25/23 10/10/23 Rx Magnesium Citrate and Oxide 500 mg PO DAILY #30 cap 09/25/23 10/10/23 Rx [Magnesium] Piperacillin-Tazobactam [Zosyn] 3.375 gm IVPB Q8HR #120 each 09/25/23 10/10/23 Rx Thiamine [Vitamin B-1] 100 mg PO DAILY tab 09/25/23 10/10/23 Rx polyethylene glycoL 3350 [Miralax] 17 gm PO DAILY PRN 10/05/23 10/10/23 History HYDROcodone/APAP 5-325MG [[place] 1 tab PO BID 10/10/23 10/10/23 History 5-325] Multivitamins, Thera [Multivitamin 1 tab PO DAILY 10/10/23 10/10/23 History (formulary)] carvediloL [Coreg] 6.25 mg PO BID-W/MEALS 10/10/23 10/10/23 History Allergies Allergy/AdvReac Type Severity Reaction Status Date / Time No Known Allergies Allergy Verified 10/10/23 16:55 Surgical - Exam Vital Signs Temp Pulse Resp BP Pulse Ox 97.7 F 103 H 17 120/54 88 L 10/10/23 15:17 10/10/23 15:17 10/10/23 15:17 10/10/23 15:17 10/10/23 15:17 - General well developed, well nourished, no distress - Eyes normal ocular movement, no icteric - ENT no hearing loss, no congestion - Neck no masses, trachea midline - Respiratory normal respiratory effort, clear to auscultation - Abdomen Abdomen: soft, non tender, no guarding, no rigid, no rebound - Integumentary no rash, no abnormal pigmentation - Neurologic no disoriented, no combative - Psychiatric oriented to time, oriented to person, oriented to place, speech is normal, memory intact Results - Labs 10/12/23 04:37 10/11/23 04:20 Abnormal Lab Results - Last 24 Hours (Table) 10/10/23 10/10/23 10/11/23 Range/Units 13:57 21:20 12:37 WBC 20.8 H (3.8-10.6) k/uL RBC 2.95 L (4.30-5.90) m/uL Hgb 8.4 L D (13.0-17.5) gm/dL Hct 25.6 L (39.0-53.0) % RDW 16.0 H (11.5-15.5) % Neutrophils # 18.8 H (1.3-7.7) k/uL Lymphocytes # 0.3 L (1.0-4.8) k/uL Eosinophils # (0-0.7) k/uL Iron 21 L (65-175) UG/DL % Saturation 7.42 L (15.00-50.00) Transferrin 202.0 L (204.0-354.0) mg/dL Crossmatch See Detail 10/11/23 10/12/23 Range/Units 18:06 04:37 WBC 17.7 H 12.7 H (3.8-10.6) k/uL RBC 3.21 L 3.13 L (4.30-5.90) m/uL Hgb 9.2 L 8.9 L (13.0-17.5) gm/dL Hct 28.6 L 27.5 L (39.0-53.0) % RDW 16.2 H 16.3 H (11.5-15.5) % Neutrophils # 10.3 H (1.3-7.7) k/uL Lymphocytes # 0.3 L (1.0-4.8) k/uL Eosinophils # 0.8 H (0-0.7) k/uL Iron (65-175) UG/DL % Saturation (15.00-50.00) Transferrin (204.0-354.0) mg/dL Crossmatch - Imaging CT scan - abdomen: report reviewed, image reviewed CT scan - pelvis: report reviewed, image reviewed Assessment and Plan Assessment: Impression: right renal mass. cad, pad. gi bleed. Recommendations: this patient will need further evaluation of the mass, probably and mri renal mass protocol to determine whether this is malignant or not
--- NOTE | 2023-10-12 08:52 | P.PN ---
Progress Note - Text Progress Note Date: 10/12/23 Patient was seen this morning approximately 0 740 and he reported that he did not finish his bowel prep that he could not drink. Gastroenterology was not notified by nursing and it was reported that he still has dark blood in stool. He denies any abdominal pain, nausea, vomiting. Denies any shortness of breath or chest pain. Hemoglobin 8.9. Patient was given the choice that he could finish his bowel prep early this morning by 10 AM and proceed with colonoscopy late afternoon otherwise would recommend patient be transferred to a tertiary center. He was agreeable to trying to finish the prep. Dr. Brandan Rebollar I agree with the dictator's note, documented as a scribe by Eliane Jacinto.
--- NOTE | 2023-10-12 09:15 | P.GSCN ---
History of Present Illness Consult date: 10/12/23 Reason for Consult: Known to service, recent AAA repair Requesting physician: Yusuf Knox History of present illness: This is a 73-year-old male with known peripheral arterial disease who recently underwent percutaneous endovascular aortic repair of abdominal aortic aneurysm, balloon angioplasty of the left common iliac and external iliac artery done on 10/05/[address] Padilla. 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 This was done on 09/20/2023. He states he has been getting wound care. He does have pain in that left foot where the wound is. He denies any abdominal pain no back pain. He denies shortness of breath or chest pain. Patient came in with gastrointestinal bleed with significant output of dark blood and clots. He was admitted on 10/10/2023 with a hemoglobin of 7.2 and had a drop yesterday of 5-5.9. He has was given 2 units of blood this admission. He has had to receive blood and prior admissions as well for anemia. He has a history of a GI bleed back in February 2023 and was sent to [facility] for which he states he had endoscopic evaluation however documents are not available. He is scheduled to undergo EGD and colonoscopy today with gastroenterology. Hemoglobin stable at 8.9. Review of Systems A 14 point review systems was completed all pertinent positives and negatives as stated in the HPI. Past Medical History Past Medical History: Coronary Artery Disease (CAD), Heart Failure, Hyperlipidemia, Hypertension, Vascular Disorder Additional Past Medical History / Comment(s): aortic aneusrym, herniated disc, peripheral vascular disease Last Myocardial Infarction Date:: 02/2023 History of Any Multi-Drug Resistant Organisms: None Reported Past Surgical History: Appendectomy, Coronary Bypass/CABG, Orthopedic Surgery Additional Past Surgical History / Comment(s): Right rotater cuff repair, L first and second toe removal Past Anesthesia/Blood Transfusion Reactions: No Reported Reaction Past Psychological History: No Psychological Hx Reported Smoking Status: Current some day smoker, Light tobacco smoker Past Alcohol Use History: Daily, Occasional Additional Past Alcohol Use History / Comment(s): has smoked since 18yrs. cutting down to quit. Past Drug Use History: Marijuana Additional Drug Use History / Comment(s): Pt aware not to use 24hrs before procedure - Past Family History Father Family Medical History: Coronary Artery Disease (CAD) Additional Family Medical History / Comment(s): triple bypass Mother Family Medical History: Coronary Artery Disease (CAD), Dementia Medications and Allergies Home Medications Medication Instructions Recorded Confirmed Type Clopidogrel [Plavix] 75 mg PO DAILY #30 tab 02/22/16 10/10/23 Rx Montelukast [Singulair] 10 mg PO HS #30 tab 02/22/16 10/10/23 Rx lisinopriL [Zestril] 2.5 mg PO HS #30 tab 02/22/16 10/10/23 Rx Loratadine [Claritin] 10 mg PO DAILY 09/08/20 10/10/23 History Atorvastatin [Lipitor] 80 mg PO HS 09/20/23 10/10/23 History Omeprazole [PriLOSEC] 20 mg PO AC-BID 09/20/23 10/10/23 History Spironolactone [Aldactone] 25 mg PO DAILY 09/20/23 10/10/23 History Acetaminophen Tab [Tylenol] 650 mg PO Q6HR PRN tab 09/25/23 10/10/23 Rx Folic Acid 1 mg PO DAILY tab 09/25/23 10/10/23 Rx Furosemide [Lasix] 40 mg PO DAILY #30 tablet 09/25/23 10/10/23 Rx Gabapentin 600 mg PO TID #9 tab 09/25/23 10/10/23 Rx Magnesium Citrate and Oxide 500 mg PO DAILY #30 cap 09/25/23 10/10/23 Rx [Magnesium] Piperacillin-Tazobactam [Zosyn] 3.375 gm IVPB Q8HR #120 each 09/25/23 10/10/23 Rx Thiamine [Vitamin B-1] 100 mg PO DAILY tab 09/25/23 10/10/23 Rx polyethylene glycoL 3350 [Miralax] 17 gm PO DAILY PRN 10/05/23 10/10/23 History HYDROcodone/APAP 5-325MG [[place] 1 tab PO BID 10/10/23 10/10/23 History 5-325] Multivitamins, Thera [Multivitamin 1 tab PO DAILY 10/10/23 10/10/23 History (formulary)] carvediloL [Coreg] 6.25 mg PO BID-W/MEALS 10/10/23 10/10/23 History Allergies Allergy/AdvReac Type Severity Reaction Status Date / Time No Known Allergies Allergy Verified 10/10/23 16:55 Surgical - Exam Vital Signs Temp Pulse Resp BP Pulse Ox 97.7 F 103 H 17 120/54 88 L 10/10/23 15:17 10/10/23 15:17 10/10/23 15:17 10/10/23 15:17 10/10/23 15:17 General appearance: The patient is alert, oriented, appears in no acute distress. HET: Head is normocephalic and atraumatic. Pupils are equal and reactive. Neck: Supple. Heart: Regular. Lungs: Equal expansion, normal respiratory effort. Abdomen: Soft, nontender, nondistended. Extremities: Bilateral feet warm to the touch, left first through third toe amputation with open wound with eschar. Good palpable left femoral pulse, weak on the right side. Nonpalpable DP pulses. Neurological: No focal deficits. Alert and oriented x 3. Results - Labs 10/12/23 04:37 10/11/23 04:20 Abnormal Lab Results - Last 24 Hours (Table) 10/10/23 10/10/23 10/11/23 Range/Units 13:57 21:20 12:37 WBC 20.8 H (3.8-10.6) k/uL RBC 2.95 L (4.30-5.90) m/uL Hgb 8.4 L D (13.0-17.5) gm/dL Hct 25.6 L (39.0-53.0) % RDW 16.0 H (11.5-15.5) % Neutrophils # 18.8 H (1.3-7.7) k/uL Lymphocytes # 0.3 L (1.0-4.8) k/uL Eosinophils # (0-0.7) k/uL Iron 21 L (65-175) UG/DL % Saturation 7.42 L (15.00-50.00) Transferrin 202.0 L (204.0-354.0) mg/dL Crossmatch See Detail 10/11/23 10/12/23 Range/Units 18:06 04:37 WBC 17.7 H 12.7 H (3.8-10.6) k/uL RBC 3.21 L 3.13 L (4.30-5.90) m/uL Hgb 9.2 L 8.9 L (13.0-17.5) gm/dL Hct 28.6 L 27.5 L (39.0-53.0) % RDW 16.2 H 16.3 H (11.5-15.5) % Neutrophils # 10.3 H (1.3-7.7) k/uL Lymphocytes # 0.3 L (1.0-4.8) k/uL Eosinophils # 0.8 H (0-0.7) k/uL Iron (65-175) UG/DL % Saturation (15.00-50.00) Transferrin (204.0-354.0) mg/dL Crossmatch - Imaging Comments: CT angiogram abdomen and pelvis reports no evidence for gastrointestinal hemorrhage. 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 MRI renal mass protocol recommended. Urology consultation recommended. Aortobiiliac stent graft present and patent. To the excluded lumen measuring up to 6.0 x 5.8 cm. No evidence of endoleak. Right common iliac artery stent graft measuring up to 2.5 cm. Colonic diverticulosis. Mild cardiomegaly. Severe coronary artery arthrosclerosis. Mild aortic valve leaflet calcifications. Large cystic lesion in the left upper quadrant unclear whether this is coming from the pancreas versus the kidney versus postsurgical seroma. Assessment and Plan Assessment: 1. GI bleed 2. Acute on chronic anemia 3. Renal mass 4. History of abdominal aortic aneurysm status post percutaneous endovascular aortic repair and balloon angioplasty left common iliac, external iliac artery 5. History of peripheral arterial disease status post 6. History of gas gangrene left great toe status post revision of second and third toe amputation and great toe amputation 7. Coronary artery disease with previous CABG 8. Heart failure with reduced EF 9. Ischemic cardiomyopathy, EF 35 to 40% Plan: CTA imaging reviewed by Dr. Padilla with no acute findings. Continue with recommendations from gastroenterology. Will consult wound care. Patient will need outpatient follow-up with vascular surgery for peripheral vascular disease, will require further revascularization versus amputation. No indication for any vascular surgical intervention at this time due to active GI bleed. Thank you for this consultation. The impression and plan of care has been dictated as directed. Dr. Giliberto I performed a history and examination of this patient, discussed the same with the dictator. I agree with the dictator's note ,documented as a scribe. Any additional findings or plans will be noted.
--- NOTE | 2023-10-12 11:05 | P.PN ---
Subjective Progress Note Date: 10/12/23 Principal diagnosis: GI bleed. Pulmonary consult dated October 11, 2023. 73-year-old male with a history of multiple medical problems including hypertension, coronary disease, heart failure, hyperlipidemia, hypertension, and peripheral vascular occlusive disease. The patient presents to the emergency department, on October 10, with bright red bleeding per rectum. The patient apparently was recently seen at [facility], and had a colonoscopy, and was told that everything was okay. The patient did have abdominal pain, but also had back pain. Had some mild shortness of breath. The patient is seen today in the observation unit, room 162. The patient's initial hemoglobin was 5.9. 2 units of blood was ordered. After the first unit, his hemoglobin was 8.4. Subsequent to that, he had 2 additional bowel movements that were bloody. The bleeding started yesterday, October 10. He has had 1 prior episode of GI bleed. 2 units of blood were ordered, and he is getting his second unit currently. His vital signs are stable. He is on 2 L of oxygen. Cardiology was consulted, as was GI, and hematology. The patient is on Plavix and aspirin. In addition, the patient was recently here and saw one of the vascular surgeons, for a vascular procedure. Current labs include a white count 20.8, hemoglobin 8.4, hematocrit 25.6, and a platelet count of 351,000. Coagulation studies included PT of 13.3, INR 1.3, and a PTT of 25.2. Sodium 133, potassium 3.5, chlorides 101, CO2 29, BUN 16, creatinine 0.60. Calcium is 8. Albumin is 2.4. Chest x-ray showed improved airspace opacities, compared to a chest x-ray that was done on September 23 of this year. He of the abdomen and pelvis shows no evidence for GI hemorrhage, a new right solid renal neoplasm from prior measuring up to 25 mm. Aortoiliac stent graft is present and patent. No evidence of leak. Diverticulosis, cardiomegaly, severe CAD, aortic valve leaflet calcifications, and large cystic lesion in the upper quadrant of the abdomen is also noted on CT. Progress note dated October 12, 2023. The patient is seen today room 258. The patient is scheduled to have an EGD and colonoscopy today. He is currently on 2 L of oxygen. He is on saline, at KVO. His hemoglobin this morning was 8.9. The patient has received a total of 2 units of packed red blood cells. Labs today include white count 12.7, hemoglobin 8.9, hematocrit 27.5, and a platelet count of 341,000. His magnesium level is 1.7. Microbiology is negative or pending. No chest x-ray today. Objective - Vital Signs Vital signs: Vital Signs Temp 97.5 F L 10/12/23 08:00 Pulse 95 10/12/23 10:00 Resp 9 L 10/12/23 10:00 BP 152/82 10/12/23 10:00 Pulse Ox 98 10/12/23 10:00 FiO2 Intake & Output 10/11/23 10/12/23 10/12/23 18:59 06:59 18:59 Intake Total 720 475 85 Output Total 1950 950 200 Balance -1230 -475 -115 Weight 65.771 kg 66.2 kg Intake: IV 60 0.9 60 Intake, IV Titration 100 175 25 Amount Piperacillin-Tazobactam 3 100 175 25 .375 gm In Sodium Chloride 0.9% 100 ml @ 25 mls/hr IVPB Q8H [facility] Rx#: [id number] Oral 300 0 Blood Product 620 Rc As-1 Unit 310 [id number] Rc As-1 Unit 310 [id number] Output: Urine 1950 950 200 Other: Voiding Method Urinal Urinal Urinal # Bowel Movements 1 1 1 - Exam No acute distress, oriented 3. On 2 L. No respiratory distress. HEENT examination is grossly unremarkable. Mucous membranes are moist. No oral lesions. Neck supple. Full range of motion. No adenopathy thyromegaly or neck vein distention. Cardiovascular examination reveals regular rhythm rate. S1-S2 normal. No S3 or S4. No discernible murmur noted. Heart rate 95 bpm. Lungs reveal clear breath sounds. Breath sounds are equal bilaterally. No adventitious lung sounds including wheezes rhonchi or crackles. Saturations at 98 %. Abdomen soft without bowel sounds. No masses or tenderness. Extremities are intact. No cyanosis clubbing or edema. Skin is without rash or lesion. Neurologic examination is brief but nonfocal. - Labs CBC & Chem 7: 10/12/23 04:37 10/11/23 04:20 Labs: Abnormal Lab Results - Last 24 Hours (Table) 10/10/23 10/10/23 10/11/23 Range/Units 13:57 21:20 12:37 WBC 20.8 H (3.8-10.6) k/uL RBC 2.95 L (4.30-5.90) m/uL Hgb 8.4 L D (13.0-17.5) gm/dL Hct 25.6 L (39.0-53.0) % RDW 16.0 H (11.5-15.5) % Neutrophils # 18.8 H (1.3-7.7) k/uL Lymphocytes # 0.3 L (1.0-4.8) k/uL Eosinophils # (0-0.7) k/uL Iron 21 L (65-175) UG/DL % Saturation 7.42 L (15.00-50.00) Transferrin 202.0 L (204.0-354.0) mg/dL Crossmatch See Detail 10/11/23 10/12/23 Range/Units 18:06 04:37 WBC 17.7 H 12.7 H (3.8-10.6) k/uL RBC 3.21 L 3.13 L (4.30-5.90) m/uL Hgb 9.2 L 8.9 L (13.0-17.5) gm/dL Hct 28.6 L 27.5 L (39.0-53.0) % RDW 16.2 H 16.3 H (11.5-15.5) % Neutrophils # 10.3 H (1.3-7.7) k/uL Lymphocytes # 0.3 L (1.0-4.8) k/uL Eosinophils # 0.8 H (0-0.7) k/uL Iron (65-175) UG/DL % Saturation (15.00-50.00) Transferrin (204.0-354.0) mg/dL Crossmatch Assessment and Plan Assessment: Bright red bleeding per rectum, in a patient with a recent colonoscopy, which was reported as normal. History of coronary artery disease, with previous bypass surgery. History of previous myocardial infarction, February 2023. Recent percutaneous endovascular aortic repair, selective bilateral iliofemoral angiogram, and percutaneous closure of bilateral common femoral arteries, September 2023. History of CHF. History of hyperlipidemia. History of hypertension. History of aortic aneurysm. History of ongoing tobacco use. Plan: Plan dated October 11, 2023. The patient will be admitted to the intensive care unit, for further monitoring and management. The patient's initial hemoglobin was 5.9. Repeat hemoglobin after the first unit was 8.4. Subsequent to that, the patient had 2 additional bloody bowel movements. The patient is currently receiving his second unit of blood. The patient has a history of hypertension, coronary disease, myocardial infarction, bypass grafting, CHF, hyperlipidemia, hypertension, peripheral vascular occlusive disease. The patient apparently had a recent colonoscopy at [facility], which was reported as normal. Labs, x-rays, and medications are reviewed. Cardiology, gastroenterology, and hematology were consulted. Plan dated October 12, 2023. The patient was admitted with a diagnosis of an acute gastrointestinal bleed. The patient apparently had a recent colonoscopy at [facility], which was reported as normal. The patient has received a total of 2 units of packed red blood cells. He is scheduled for an EGD and colonoscopy today. Labs, x-rays, and medications are reviewed. The patient continues on oxygen at 2 L. The patient is also getting saline at KVO. This morning's hemoglobin was 8.9. We will continue to follow make recommendations along the way. Prognosis is certainly guarded. Time with Patient: Greater than 30
[2023-10-12] MEDS ORDERED: SODIUM FERRIC GLUCONAT-SUCROSE 125 MG in SODIUM CHLORIDE 0.9% 100 ML IVPB SCH (12:45)
--- NOTE | 2023-10-12 14:35 | P.PN ---
Subjective Progress Note Date: 10/12/23 This is a 73-year-old gentleman with past medical history significant for PAD, CAD, CABG, GI bleed, anemia-hemoglobin as low as 4.9, herniated disc, hypertension, hyperlipidemia, nicotine dependence, daily alcohol use-reports 2X 12 ounce beers daily, recent inpatient admission, discharged on 09/25/2023 with Left great toe,wet gangrene with subcutaneous gas, follows with the wound care center secondary to chronic left foot wound with prior second and third toe amputation, underwent left great toe amputation. Wound cultures grew gram- negative bacilli, Citrobacter braakii. PICC line placed, receiving IV antibiotics outpatient. Patient also had a recent percutaneous endovascular aortic repair and balloon angioplasty of left common iliac and external iliac artery with Dr. Padilla on October 05, 2023, placed on aspirin and Plavix outpatient. Yesterday presented to the ER with rectal bleeding x 2, bright painless red blood in stools x 1 day. Reports abdominal cramping, left-sided abdominal pain. reports no recent illness, no diarrhea prior, no cough congestion. chest pain palpitations or shortness of breath. Chest xray improved scattered airspace opacities compared to prior with persistent scattered airspace opacities. CTA abdomen and pelvis: Aortobiiliac stent graft is present and patent. The excluded lumen measuring up to 6 x 5.8 cm. No evidence for endoleak. Dilation of the common iliac artery on the right up to 2.5 cm. No evidence for intramural hematoma on noncontrast imaging. There is scattered atherosclerotic plaque throughout the remainder of the abdominal aorta. The visualized major branches of the aorta including the celiac axis and superior mesenteric axis are patent. The superior mesenteric axis is calcified plaque with at least 50% stenosis. Bilateral renal arteries are patent there may be due to left renal artery present.. Severe coronary artery atherosclerosis. Colonic diverticulosis. Mild cardiomegaly. Large cystic lesion in the left upper quadr ant unclear if this is coming from the pancreas versus kidneys versus postsurgical seroma.Tmax 99.3, WBC 20.2, lactic acid 1. hemoglobin admission 7.2, decreased to 5.9, receiving transfusion of packed RBCs. 347. Sodium 133, potassium 3.5, bicarb 29, BUN 16, creatinine 0.6, glucose 75, magnesium 1.6, LFTs within normal limits, lipase 58, albumin 2.4 10/12/2023 status post 2 units of packed RBCs, current hemoglobin 8.9, platelets 341 .patient is scheduled for EGD and colonoscopy today. Patient is currently attempting to finish his prep and is not clear. Nursing reporting bloody tinged stool. Denies nausea,vomiting. Denies abdominal pain. Denies chest pain, palpitations or shortness of breath. Maintaining O2 sats in the 90s on 2 L nasal cannula. Magnesium 1.7. Objective - Vital Signs Vital signs: Vital Signs Temp 97.8 F 10/12/23 12:00 Pulse 92 10/12/23 14:00 Resp 16 10/12/23 14:00 BP 142/79 10/12/23 14:00 Pulse Ox 97 10/12/23 14:00 FiO2 Intake & Output 10/11/23 10/12/23 10/12/23 18:59 06:59 18:59 Intake Total 720 475 265 Output Total 1950 950 800 Balance -1230 -475 -535 Weight 65.771 kg 66.2 kg Intake: IV 240 0.9 140 Piperacillin-Tazobactam 3 100 .375 gm In Sodium Chloride 0.9% 100 ml @ 25 mls/hr IVPB Q8H [facility]ZA Rx#: [id number] Intake, IV Titration 100 175 25 Amount Piperacillin-Tazobactam 3 100 175 25 .375 gm In Sodium Chloride 0.9% 100 ml @ 25 mls/hr IVPB Q8H LIZA Rx#: [id number] Oral 300 0 Blood Product 620 Rc As-1 Unit 310 [id number] As-1 Unit 310 [id number] Output: Urine 1950 950 800 Other: Voiding Method Urinal Urinal Urinal # Voids 1 # Bowel Movements 1 1 2 - Exam PHYSICAL EXAMINATION: VS: As above GENERAL: Alert and oriented 3, sitting up at side of bed, no acute distress HEENT: Normocephalic, atraumatic. Pupils equal and reactive. Sclera anicteric NECK: Supple, no JVD CHEST EXAMINATION: Unlabored, equal air entry, essentially clear, bilateral bases diminished CARDIAC: Normal S1, S2 with no gallops. Systolic murmur. ABDOMEN: Soft. Nondistended, nontender, Bowel sounds normal. No guarding, no rigidity. EXTREMITIES: No pedal edema. NEUROLOGICAL: Cranial nerves II through XII grossly intact ,No focal deficits noted Skin: No rash, warm and dry. - Labs CBC & Chem 7: 10/12/23 04:37 10/11/23 04:20 Labs: Abnormal Lab Results - Last 24 Hours (Table) 10/10/23 10/10/23 10/11/23 Range/Units 13:57 21:20 18:06 WBC 17.7 H (3.8-10.6) k/uL RBC 3.21 L (4.30-5.90) m/uL Hgb 9.2 L (13.0-17.5) gm/dL Hct 28.6 L (39.0-53.0) % RDW 16.2 H (11.5-15.5) % Neutrophils # (1.3-7.7) k/uL Lymphocytes # (1.0-4.8) k/uL Eosinophils # (0-0.7) k/uL Iron 21 L (65-175) UG/DL % Saturation 7.42 L (15.00-50.00) Transferrin 202.0 L (204.0-354.0) mg/dL Crossmatch See Detail 10/12/23 Range/Units 04:37 WBC 12.7 H (3.8-10.6) k/uL RBC 3.13 L (4.30-5.90) m/uL Hgb 8.9 L (13.0-17.5) gm/dL Hct 27.5 L (39.0-53.0) % RDW 16.3 H (11.5-15.5) % Neutrophils # 10.3 H (1.3-7.7) k/uL Lymphocytes # 0.3 L (1.0-4.8) k/uL Eosinophils # 0.8 H (0-0.7) k/uL Iron (65-175) UG/DL % Saturation (15.00-50.00) Transferrin (204.0-354.0) mg/dL Crossmatch Assessment and Plan Assessment: Acute GI bleed,on dual platelet therapy OP, possible diverticular bleed , in a patient with history of GI bleeding with prior endoscopies at [facility]-he reports notmal. Records ordered. Acute on chronic anemia, status post transfusion of 2 units packed RBCs Acute on chronic CHF, systolic dysfunction, EF 35%. Acute hypoxic respiratory failure, multifactorial secondary to all the above New right solid renal mass, measuring up to 25 mm, urology consulted. Large cystic lesion in the left upper quadrant unclear with this coming from the pancreas versus the kidney versus postsurgical seroma Recent inpatient admission, discharged on 09/25/2023 with Left great toe,wet gangrene with subcutaneouos gas, in a patient with history of PAD, follows with the wound care center secondary to chronic left foot wound with prior second and third toe amputation. Status post left great toe amputation. Wound cultures reporting gram-negative bacilli, Citrobacter braakii. PICC line placed, recei ving IV antibiotics at [facility]. Recent abdominal aortic aneurysm endovascular repair Colonic diverticulosis Ischemic cardiomyopathy Aortic stenosis Coronary disease with history of CABG Hypertension Hyperlipidemia Nicotine dependence Daily alcohol use Marijuana use Plan: Continue on current medication regimen, monitoring and symptomatic treatment. Scheduled for EGD and colonoscopy, currently attempting to complete his prep. Discussed with GI. PPI for GI prophylaxis. Anticoagulation on hold.P rognosis guarded given multiple complex medical issues. The impression and plan of care has been dictated as directed. : I performed a history and examination of this patient, discussed the same with the dictator. I agree with the dictator's note ,documented as a scribe. Any additional findings or plans will be noted.
[2023-10-12] MEDS: IV FLUID CONTINUATION 900 ML IV ONE (15:52)
[2023-10-12] MEDS ORDERED: ETOMIDATE 2 MG/ML 10 ML VIAL ONE (15:52)
[2023-10-12] MEDS ORDERED: LIDOCAINE 2% (PF) 20 MG/ML 5 ML VIAL ONE (15:52)
--- NOTE | 2023-10-12 16:22 | P.PCN ---
Date of Procedure: 10/12/23 Procedure(s) Performed: Brief history: Patient is a pleasant 70-year-old white male admitted hospital with acute GI bleed. He had a hemoglobin of 5.6 g/dL and multiple episodes of maroon-colored stools. He received 2 units of PRBC transfusion and repeat hemoglobin is 7.5 g/dL. . Procedure performed: Esophagogastroduodenoscopy Colonoscopy with biopsy Preoperative diagnosis: Acute GI bleed Anesthesia: [facility] [place] Procedure: After informed consent was obtained from the patient was brought into the endoscopy unit and IV sedation was administered by anesthesia under continuous monitoring. Initially upper endoscopy was done. The Olympus GF 160 video endoscope was inserted inserted into the mouth and esophagus intubated without any difficulty and was gradually advanced into the stomach and duodenum and carefully examined. active upper GI bleed seen. The bulb and second part of the duodenum appeared normal. The scope was then withdrawn into the stomach adequately insufflated with air and upon careful examination thhad mild gastritis. Mucosa of thedia and fundus appeared normal. The scope was then withdrawn into the esophagus. small hiatal hernia noted. The GE junction was located at 40 cm to the incisors. It appeared rirregular with 3-4 mm tongue of Gonzalez's appearing mucosa proximal to the GE junction. Rest of esophagus appeared normal and the patient tolerated the procedure well. He continued to remain sedated. Initial digital rectal examination was normal. Olympus CF 160 video colonoscope was then inserted into the rectum and gradually advanced to the cecum without any difficulty. Careful examination was performed as the scope was gradually being withdrawn. The prep was fair. The cecum, ascending colon, transverse colon, descending colon, sigmoid colon appeared normal. In the distal rectum there was a 3 cm superficial ulceration identified with no active bleeding. Biopsies were done from this area. Scattered sigmoid diverticula seen. Retroflexion was performed in the rectum and small internal hemorrhoids were noted. Patient tolerated the procedure well. Impression: 1. Upper endoscopy revealed mild antral gastritis, small hiatal hernia and short segment Gonzalez's esophagus 2. Colonoscopy revealed a 3 cm superficial ulceration consistent with solitary rectal ulcer syndrome, scattered sigmoid diverticulosis and small internal hemorrhoids Recommendations: Findings of this examination were discussed with the patient.. At this time will await biopsy results. Avoid constipation. Start him on regular diet.. Monitor CBC and transfuse if the hemoglobin is less than 7 gms per deciliter..
[2023-10-12] MEDS: SODIUM FERRIC GLUCONAT-SUCROSE 125 MG in SODIUM CHLORIDE 0.9% 100 ML IVPB SCH (17:07)
--- NOTE | 2023-10-12 18:00 | P.PN ---
Subjective HISTORY OF PRESENT ILLNESS: This is a 73-year-old male with a past medical history significant for coronary artery disease with previous CABG, peripheral arterial disease, ischemic cardiomyopathy, valvular heart disease, hypertension, hyperlipidemia, congestive heart failure, chronic nicotine use, and chronic alcohol use. Patient follows in the office with Dr. Hoffman. We have been asked to see the patient in consultation for congestive heart failure. Patient examined at the bedside. Patient presented to the hospital with a chief complaint of bright red blood in his stools. He denies having any pain with defecation. He states however aft erwards he began to have left-sided abdominal pain. He denies any chest pain or pressure. He denies any shortness of breath. It is noted that the patient underwent surgery with Dr. Padilla on October 05, 2023 and had a percutaneous endovascular aortic repair and balloon angioplasty of left common iliac and external iliac artery. The patient is prescribed aspirin and Plavix on an outpatient basis. Patient's hemoglobin on admission was 7.2. Repeat 5.9. He is currently receiving RBC transfusion. The patient does have a history of anemia with hemoglobins as low as 4.9. DIAGNOSTICS: - Chest xray improved scattered airspace opacities compared to prior with persistent scattered airspace opacities - CTA abdomen and pelvis: Aortobiiliac stent graft is present and patent. The excluded lumen measuring up to 6 x 5.8 cm. No evidence for endoleak. Dilation of the common iliac artery on the right up to 2.5 cm. No evidence for intramural hematoma on noncontrast imaging. There is scattered atherosclerotic plaque throughout the remainder of the abdominal aorta. The visualized major branches of the aorta including the celiac axis and superior mesenteric axis are patent. The superior mesenteric axis is calcified plaque with at least 50% stenosis. Bilateral renal arteries are patent there may be due to left renal artery present.. Severe coronary artery atherosclerosis. Colonic di verticulosis. Mild cardiomegaly. Large cystic lesion in the left upper quadrant unclear if this is coming from the pancreas versus kidneys versus postsurgical seroma. - Laboratory data: WBC 20.2. Hemoglobin 5.9. Platelet count 347. Sodium 133. Potassium 3.5. BUN 16. Creatinine 0.60. Magnesium 1.6. Troponin negative x 1. - Current home cardiac medications include Lipitor 80 mg at night, Plavix 75 mg daily, Lasix 40 mg daily, Aldactone 25 mg daily, carvedilol 6.25 mg twice a day, lisinopril 2.5 mg at night - Most recent echocardiogram obtained in September 2023 revealed an ejection fract ion 35 to 40%, at least moderate aortic calcification, trace TR, mild MR -Previous echocardiogram performed in August 2023 revealed ejection fraction 35%, moderate AR, moderate AAS, and dilated aorta at 5.7 cm - Most recent cardiac catheterization performed in February 2023 revealing elevated left-sided filling pressures, moderate pulmonary hypertension consistent with who group 2, normal pulmonary vascular resistance, and elevated systemic vascular resistance. - Patient underwent three-vessel CABG in February 2016 with ARRIAZA to LAD, VGPDA, VGOM1 2/ Patient seen and examined. Patient denies any hematochezia or melena. Hemoglobin relatively stable overnight 9.2-8.9 this morning. Denies any chest pain or pressure. Blood pressure is relatively stable 144/75. Patient scheduled for EGD/colonoscopy later today. REVIEW OF SYSTEMS: At the time of my exam: CONSTITUTIONAL: Denies fever or chills. HEENT: Denies blurred vision, vision changes, or eye pain. Denies hemoptysis CARDIOVASCULAR: Denies chest pain. Denies orthopnea. Denies PND. Denies palpitations RESPIRATORY: Denies shortness of breath. GASTROINTESTINAL: Reports left-sided abdominal pain. Denies nausea or vomiting. HEMATOLOGIC: Denies bleeding disorders. Reports bright red blood per rectum. GENITOURINARY: Denies any blood in urine. SKIN: Denies pruitis. Denies rash. PHYSICAL EXAM: VITAL SIGNS: Reviewed. GENERAL: Well-developed in no acute distress. HEENT: Head is normocephalic. Pupils are equal, round. Sclerae anicteric. Mucous membranes of the mouth are moist. Neck supple. Mild JVD LUNGS: Respirations even and unlabored. Lungs diminished bilaterally HEART: Regular rate and rhythm. S1 and S2 heard. Systolic murmur noted at the base and the apex ABDOMEN: Soft. Nondistended. Nontender. EXTREMITIES: Normal range of motion. No clubbing or cyanosis. Peripheral pulses intact. 1-2+ bilateral pitting lower extremity edema NEUROLOGIC: Awake and alert. Oriented x 3. ASSESSMENT: Bright red blood per rectum; on dual antiplatelet therapy outpatient Left-sided abdominal pain Acute on chronic anemia Acute exacerbation of heart failure with reduced EF Status post percutaneous endovascular aortic repair and balloon angioplasty of left common iliac and external iliac artery New right solid renal neoplasm, measuring 25mm, per CT Coronary artery disease with previous three-vessel CABG, 2016, ARRIAZA to LAD, VG PDA, VGOM1 Peripheral arterial disease Ischemic cardiomyopathy, ejection fraction 35 to 40% Valvular heart disease including trace TR, mild MR, and moderate aortic stenosis and regurgitation Hypertension Hyperlipidemia Nicotine dependence Alcohol abuse, patient reports daily etoh use PLAN: Holding aspirin and Plavix for now however likely restart at a minimum aspirin if scope no active bleeding Lisinopril 2.5 and Aldactone 25 mg daily with carvedilol 6.25 mg. Currently appears euvolemic. Monitor for closely for volume overload. Further recommendations pending patient course Objective - Vital Signs Vital signs: Vital Signs Temp 97.8 F 10/12/23 12:00 Pulse 118 H 10/12/23 15:00 Resp 15 10/12/23 15:00 BP 156/78 10/12/23 15:00 Pulse Ox 91 L 10/12/23 15:00 FiO2 Intake & Output 10/11/23 10/12/23 10/12/23 18:59 06:59 18:59 Intake Total 720 475 505 Output Total 2382 496 8202 Balance -1230 -475 -695 Weight 65.771 kg 66.2 kg Intake: IV 480 0.9 180 Piperacillin-Tazobactam 3 100 .375 gm In Sodium Chloride 0.9% 100 ml @ 25 mls/hr IVPB Q8H [facility] Rx#: [id number] Intake, IV Titration 100 175 25 Amount Piperacillin-Tazobactam 3 100 175 25 .375 gm In Sodium Chloride 0.9% 100 ml @ 25 mls/hr IVPB Q8H LIZA Rx#: [id number] Oral 300 0 Blood Product 620 Rc As-1 Unit 310 [id number] Rc As-1 Unit 310 [id number] Output: Urine 5309 948 0502 Other: Voiding Method Urinal Urinal Urinal # Voids 1 # Bowel Movements 1 1 2 - Labs CBC & Chem 7: 10/12/23 04:37 10/11/23 04:20 Labs: Abnormal Lab Results - Last 24 Hours (Table) 10/10/23 10/11/23 10/12/23 Range/Units 13:57 18:06 04:37 WBC 17.7 H 12.7 H (3.8-10.6) k/uL RBC 3.21 L 3.13 L (4.30-5.90) m/uL Hgb 9.2 L 8.9 L (13.0-17.5) gm/dL Hct 28.6 L 27.5 L (39.0-53.0) % RDW 16.2 H 16.3 H (11.5-15.5) % Neutrophils # 10.3 H (1.3-7.7) k/uL Lymphocytes # 0.3 L (1.0-4.8) k/uL Eosinophils # 0.8 H (0-0.7) k/uL Iron 21 L (65-175) UG/DL % Saturation 7.42 L (15.00-50.00) Transferrin 202.0 L (204.0-354.0) mg/dL
--- NOTE | 2023-10-12 20:57 | P.CONS ---
History of Present Illness - Reason for Consult Consult date: 10/12/23 anemia Requesting physician: Eliane Liao - Chief Complaint rectal bleeding - History of Present Illness Patient is a 73-year-old male with a past medical history significant for coronary artery disease with previous CABG, peripheral arterial disease, ischemic cardiomyopathy, valvular heart disease, hypertension, hyperlipidemia, congestive heart failure, chronic nicotine use, and chronic alcohol use. Patient follows with Dr. Hoffman. Consult was placed for evaluation of anemia. Patient presented to the hospital with a chief complaint of bright red blood in his stools that started over the last 1 day. Today patient did have large bloody BM with clots. He denies associated SOB, dizziness, chest pain and weakness. Of note patient underwent surgery with Dr. Padilla on 10/05/23 and had a percutaneous endovascular aortic repair and balloon angioplasty of left common iliac and external iliac artery. Patient takes daily ASA and plavix. He has a history of a GI bleed back in February 2023, and was transferred to [facility] for which he states he had endoscopic evaluation, and states no active bleeding was found. Upon admission CBC revealed normocytic normochromic anemia with hgb of 7.2. Hgb then dropped to 5.9 and he was given 2 units PRBCs. Repeat hgb was 9.2. CTA abdomen and pelvis revealed no evidence for gastrointestinal hemorrhage. Aortobiiliac stent graft present and patent. No evidence for endoleak. Right common iliac artery stent graft measuring up to 2.5 cm. 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 Large cystic lesion in the left upper quadrant unclear whether this is coming from the pancreas versus kidney versus postsurgical seroma measuring 9.3 x 8.8 cm. Patient states he was previously told about right renal mass but has not had any follow up for it. Review of Systems 10 point ROS is negative except as stated in the HPI Past Medical History Past Medical History: Coronary Artery Disease (CAD), Heart Failure, Hyperlipidemia, Hypertension, Vascular Disorder Additional Past Medical History / Comment(s): aortic aneusrym, herniated disc, peripheral vascular disease Last Myocardial Infarction Date:: 02/2023 History of Any Multi-Drug Resistant Organisms: None Reported Past Surgical History: Appendectomy, Coronary Bypass/CABG, Orthopedic Surgery Additional Past Surgical History / Comment(s): Right rotater cuff repair, L first and second toe removal Past Anesthesia/Blood Transfusion Reactions: No Reported Reaction Past Psychological History: No Psychological Hx Reported Smoking Status: Current some day smoker, Light tobacco smoker Past Alcohol Use History: Daily, Occasional Additional Past Alcohol Use History / Comment(s): has smoked since 18yrs. cutting down to quit. Past Drug Use History: Marijuana Additional Drug Use History / Comment(s): Pt aware not to use 24hrs before procedure - Past Family History Father Family Medical History: Coronary Artery Disease (CAD) Additional Family Medical History / Comment(s): triple bypass Mother Family Medical History: Coronary Artery Disease (CAD), Dementia Medications and Allergies Home Medications Medication Instructions Recorded Confirmed Type Clopidogrel [Plavix] 75 mg PO DAILY #30 tab 02/22/16 10/10/23 Rx Montelukast [Singulair] 10 mg PO HS #30 tab 02/22/16 10/10/23 Rx lisinopriL [Zestril] 2.5 mg PO HS #30 tab 02/22/16 10/10/23 Rx Loratadine [Claritin] 10 mg PO DAILY 09/08/20 10/10/23 History Atorvastatin [Lipitor] 80 mg PO HS 09/20/23 10/10/23 History Omeprazole [PriLOSEC] 20 mg PO AC-BID 09/20/23 10/10/23 History Spironolactone [Aldactone] 25 mg PO DAILY 09/20/23 10/10/23 History Acetaminophen Tab [Tylenol] 650 mg PO Q6HR PRN tab 09/25/23 10/10/23 Rx Folic Acid 1 mg PO DAILY tab 09/25/23 10/10/23 Rx Furosemide [Lasix] 40 mg PO DAILY #30 tablet 09/25/23 10/10/23 Rx Gabapentin 600 mg PO TID #9 tab 09/25/23 10/10/23 Rx Magnesium Citrate and Oxide 500 mg PO DAILY #30 cap 09/25/23 10/10/23 Rx [Magnesium] Piperacillin-Tazobactam [Zosyn] 3.375 gm IVPB Q8HR #120 each 09/25/23 10/10/23 Rx Thiamine [Vitamin B-1] 100 mg PO DAILY tab 09/25/23 10/10/23 Rx polyethylene glycoL 3350 [Miralax] 17 gm PO DAILY PRN 10/05/23 10/10/23 History HYDROcodone/APAP 5-325MG [[place] 1 tab PO BID 10/10/23 10/10/23 History 5-325] Multivitamins, Thera [Multivitamin 1 tab PO DAILY 10/10/23 10/10/23 History (formulary)] carvediloL [Coreg] 6.25 mg PO BID-W/MEALS 10/10/23 10/10/23 History Allergies Allergy/AdvReac Type Severity Reaction Status Date / Time No Known Allergies Allergy Verified 10/10/23 16:55 Physical Exam Vitals: Vital Signs Temp Pulse Pulse Resp BP BP Pulse Ox 10/11/23 16:57 97.2 F L 97 18 128/88 100 10/11/23 14:23 90 16 128/63 100 10/11/23 14:03 97.6 F 93 16 125/74 100 10/11/23 13:13 98.5 F 99 16 104/60 97 10/11/23 09:05 98.6 F 88 16 121/50 98 10/11/23 07:37 98.6 F 94 16 129/72 100 10/11/23 05:52 98.3 F 82 14 108/51 10/11/23 05:32 98.4 F 86 14 105/56 100 10/11/23 05:25 14 100 10/11/23 05:22 99.0 F 83 14 102/44 10/11/23 03:50 88 87/47 10/11/23 02:28 90 91/40 10/11/23 02:20 88 98/40 10/11/23 01:55 90 97/40 10/11/23 01:40 99.3 F 90 14 80/40 93 L 10/11/23 01:20 90 80/44 10/10/23 22:00 99.2 F 98 16 99/54 98 10/10/23 21:38 92 10/10/23 21:25 93 10/10/23 21:23 99 18 112/60 100 10/10/23 20:00 97 18 115/58 98 Intake and Output 10/11/23 10/11/23 10/11/23 06:59 14:59 22:59 Intake Total 0 310 310 Output Total 200 1400 Balance -200 -1090 310 Intake: Blood Product 0 310 310 Rc As-1 Unit 0 310 [id number] Rc As-1 Unit 0 310 [id number] Output: Urine 200 1400 Other: Voiding Method Urinal # Voids 1 # Bowel Movements 1 Weight 65.771 kg - Constitutional General appearance: average body habitus, no acute distress - EENT Eyes: anicteric sclerae, EOMI ENT: hearing grossly normal - Respiratory Respiratory: bilateral: CTA - Cardiovascular Rhythm: regular Heart sounds: normal: S1, S2 - Gastrointestinal General gastrointestinal: no distended, soft, no tenderness - Integumentary Integumentary: no cyanotic, pale - Musculoskeletal Musculoskeletal: strength equal bilaterally - Psychiatric Psychiatric: A&O x's 3 Results CBC & Chem 7: 10/12/23 04:37 10/11/23 04:20 Labs: Abnormal Lab Results - Last 24 Hours (Table) 10/10/23 10/10/23 10/11/23 Range/Units 15:32 21:20 04:20 WBC 20.2 H (3.8-10.6) k/uL RBC 2.19 L (4.30-5.90) m/uL Hgb 5.9 L* (13.0-17.5) gm/dL Hct 18.4 L* (39.0-53.0) % RDW 16.7 H (11.5-15.5) % Neutrophils # 18.6 H (1.3-7.7) k/uL Neutrophils # (Manual) 8.84 H (1.3-7.7) k/uL Lymphocytes # 0.3 L (1.0-4.8) k/uL Lymphocytes # (Manual) 0.09 L (1.0-4.8) k/uL Sodium (137-145) mmol/L Creatinine (0.66-1.25) mg/dL Calcium (8.4-10.2) mg/dL Total Protein (6.3-8.2) g/dL Albumin (3.5-5.0) g/dL Crossmatch See Detail 10/11/23 10/11/23 Range/Units 04:20 12:37 WBC 20.8 H (3.8-10.6) k/uL RBC 2.95 L (4.30-5.90) m/uL Hgb 8.4 L D (13.0-17.5) gm/dL Hct 25.6 L (39.0-53.0) % RDW 16.0 H (11.5-15.5) % Neutrophils # 18.8 H (1.3-7.7) k/uL Neutrophils # (Manual) (1.3-7.7) k/uL Lymphocytes # 0.3 L (1.0-4.8) k/uL Lymphocytes # (Manual) (1.0-4.8) k/uL Sodium 133 L (137-145) mmol/L Creatinine 0.60 L (0.66-1.25) mg/dL Calcium 8.0 L (8.4-10.2) mg/dL Total Protein 4.8 L (6.3-8.2) g/dL Albumin 2.4 L (3.5-5.0) g/dL Crossmatch CT scan - abdomen: report reviewed CT scan - pelvis: report reviewed Assessment and Plan (1) GI bleed Current Visit: Yes Status: Acute Priority: High Code(s): K92.2 - GASTROINTESTINAL HEMORRHAGE, UNSPECIFIED SNOMED Code(s): 02855924 (2) Anemia Current Visit: Yes Status: Acute Priority: High Code(s): D64.9 - ANEMIA, UNSPECIFIED SNOMED Code(s): 700381392 (3) Renal mass, right Current Visit: Yes Status: Acute Priority: Medium Code(s): N28.89 - OTHER SPECIFIED DISORDERS OF KIDNEY AND URETER SNOMED Code(s): 827377751 Plan: Anemia r/t GI bleed: -History of the same. Significant cardiac history, on plavix and ASA. Presented to the hospital with a chief complaint of bright red blood in his stools. Of note patient underwent surgery with Dr. Padilla on 10/05/23 and had a percutaneous endovascular aortic repair and balloon angioplasty of left common iliac and external iliac artery. History of a GI bleed back in February 2023, and was transferred to [facility] for which he states he had endoscopic evaluation, and states no active bleeding was found. -Upon admission CBC revealed normocytic normochromic anemia with hgb of 7.2. Hgb then dropped to 5.9 and he was given 2 units PRBCs. Repeat hgb was 9.2. Anticoagulation has been held -CTA abdomen and pelvis revealed no evidence for gastrointestinal hemorrhage. Aortobiiliac stent graft present and patent. No evidence for endoleak. Right common iliac artery stent graft measuring up to 2.5 cm. Large cystic lesion in the left upper quadrant unclear whether this is coming from the pancreas versus kidney versus postsurgical seroma measuring 9.3 x 8.8 cm. -Anemia workup ordered. Iron studies consistent with DAVE, parenteral iron ordered. Vit B12 346, MMA and folate pending -GI following with plan for EGD/colonscopy today -Vascular surgery consulted to evaluate CT findings of possible postsurgical seroma -CBC daily. Please transfuse for hgb < 7 or if symptomatic Right kidney mass: -CTA abd/pelvis also revealed new solid renal neoplasm from prior measuring up to 2.5 cm. And large cystic lesion in the left upper quadrant unclear whether this is coming from the pancreas versus kidney versus postsurgical seroma measuring 9.3 x 8.8 cm. Patient states he was previously told about right renal mass but has not had any follow up for it. -Discussed findings with patient and recommended MRI for further evaluation once stable. Patient states he would prefer to wait and do this in the outpt setting. -Will schedule oupt f/u and MRI for further evaluation of right renal mass -
[2023-10-13 08:20] VITALS: RESP 17
--- NOTE | 2023-10-13 09:28 | P.PN ---
Subjective Progress Note Date: 10/13/23 Principal diagnosis: GI bleed. Pulmonary consult dated October 11, 2023. 73-year-old male with a history of multiple medical problems including hypertension, coronary disease, heart failure, hyperlipidemia, hypertension, and peripheral vascular occlusive disease. The patient presents to the emergency department, on October 10, with bright red bleeding per rectum. The patient apparently was recently seen at [facility], and had a colonoscopy, and was told that everything was okay. The patient did have abdominal pain, but also had back pain. Had some mild shortness of breath. The patient is seen today in the observation unit, room 162. The patient's initial hemoglobin was 5.9. 2 units of blood was ordered. After the first unit, his hemoglobin was 8.4. Subsequent to that, he had 2 additional bowel movements that were bloody. The bleeding started yesterday, October 10. He has had 1 prior episode of GI bleed. 2 units of blood were ordered, and he is getting his second unit currently. His vital signs are stable. He is on 2 L of oxygen. Cardiology was consulted, as was GI, and hematology. The patient is on Plavix and aspirin. In addition, the patient was recently here and saw one of the vascular surgeons, for a vascular procedure. Current labs include a white count 20.8, hemoglobin 8.4, hematocrit 25.6, and a platelet count of 351,000. Coagulation studies included PT of 13.3, INR 1.3, and a PTT of 25.2. Sodium 133, potassium 3.5, chlorides 101, CO2 29, BUN 16, creatinine 0.60. Calcium is 8. Albumin is 2.4. Chest x-ray showed improved airspace opacities, compared to a chest x-ray that was done on September 23 of this year. He of the abdomen and pelvis shows no evidence for GI hemorrhage, a new right solid renal neoplasm from prior measuring up to 25 mm. Aortoiliac stent graft is present and patent. No evidence of leak. Diverticulosis, cardiomegaly, severe CAD, aortic valve leaflet calcifications, and large cystic lesion in the upper quadrant of the abdomen is also noted on CT. Progress note dated October 12, 2023. The patient is seen today room 258. The patient is scheduled to have an EGD and colonoscopy today. He is currently on 2 L of oxygen. He is on saline, at KVO. His hemoglobin this morning was 8.9. The patient has received a total of 2 units of packed red blood cells. Labs today include white count 12.7, hemoglobin 8.9, hematocrit 27.5, and a platelet count of 341,000. His magnesium level is 1.7. Microbiology is negative or pending. No chest x-ray today. Progress note dated October 13, 2023. 73-year-old male initially seen in the observation unit for GI bleed. The patient has been transferred to room 526 from the intensive care unit. This morning he was in the ICU. He continues on 2 L of oxygen. He is received a total of 2 units of packed red blood cells. He is currently on Zosyn. The patient's endoscopy revealed some antral gastritis, a colonic ulceration, and diverticulosis. There is no active bleeding. Current labs include a white count 12.7, hemoglobin 8.9, hematocrit 27.5, and a platelet count of 341,000. Magnesium is 1.7. No new chest x-rays to report. Objective - Vital Signs Vital signs: Vital Signs Temp 97.9 F 10/13/23 07:50 Pulse 87 10/13/23 07:50 Resp 17 10/13/23 07:50 BP 152/77 10/13/23 07:50 Pulse Ox 99 10/13/23 07:50 FiO2 2 10/13/23 02:00 Intake & Output 10/12/23 10/13/23 10/13/23 18:59 06:59 18:59 Intake Total 725 920 Output Total 1350 550 Balance -625 370 Weight 65.7 kg Intake: IV 700 20 0.9 200 20 Piperacillin-Tazobactam 3 200 .375 gm In Sodium Chloride 0.9% 100 ml @ 25 mls/hr IVPB Q8H [facility] Rx#: [id number] Sodium Ferric Gluconat- 100 Sucrose 125 mg In Sodium Chloride 0.9% 100 ml @ 100 mls/hr IVPB DAILY [facility] Rx#:[id number] Intake, IV Titration 25 Amount Piperacillin-Tazobactam 3 25 .375 gm In Sodium Chloride 0.9% 100 ml @ 25 mls/hr IVPB Q8H [facility] Rx#: [id number] Oral 0 900 Output: Urine 1350 550 Other: Voiding Method Urinal Urinal # Voids 1 # Bowel Movements 2 - Exam No acute distress, oriented 3. On 2 L. No respiratory distress. HEENT examination is grossly unremarkable. Mucous membranes are moist. No oral lesions. Neck supple. Full range of motion. No adenopathy thyromegaly or neck vein distention. Cardiovascular examination reveals regular rhythm rate. S1-S2 normal. No S3 or S4. No discernible murmur noted. Heart rate 87 bpm. Lungs reveal clear breath sounds. Breath sounds are equal bilaterally. No adventitious lung sounds including wheezes rhonchi or crackles. Saturations at 99 %. Abdomen soft without bowel sounds. No masses or tenderness. Extremities are intact. No cyanosis clubbing or edema. Skin is without rash or lesion. Neurologic examination is brief but nonfocal. - Labs CBC & Chem 7: 10/12/23 04:37 10/11/23 04:20 Assessment and Plan Assessment: Bright red bleeding per rectum, in a patient with a recent colonoscopy, which was reported as normal. EGD/colonoscopy, October 12, showing antral gastritis, diverticulosis, and a colonic ulceration. No active bleeding identified. History of coronary artery disease, with previous bypass surgery. History of previous myocardial infarction, February 2023. Recent percutaneous endovascular aortic repair, selective bilateral iliofemoral angiogram, and percutaneous closure of bilateral common femoral arteries, September 2023. History of CHF. History of hyperlipidemia. History of hypertension. History of aortic aneurysm. History of ongoing tobacco use. Plan: Plan dated October 11, 2023. The patient will be admitted to the intensive care unit, for further monitoring and management. The patient's initial hemoglobin was 5.9. Repeat hemoglobin after the first unit was 8.4. Subsequent to that, the patient had 2 additional bloody bowel movements. The patient is currently receiving his second unit of blood. The patient has a history of hypertension, coronary disease, myocardial infarction, bypass grafting, CHF, hyperlipidemia, hypertension, peripheral vascular occlusive disease. The patient apparently had a recent colonoscopy at [facility], which was reported as normal. Labs, x-rays, and medications are reviewed. Cardiology, gastroenterology, and hematology were consulted. Plan dated October 12, 2023. The patient was admitted with a diagnosis of an acute gastrointestinal bleed. The patient apparently had a recent colonoscopy at [facility], which was reported as normal. The patient has received a total of 2 units of packed red blood cells. He is scheduled for an EGD and colonoscopy today. Labs, x-rays, and medications are reviewed. The patient continues on oxygen at 2 L. The patient is also getting saline at KVO. This morning's hemoglobin was 8.9. We will continue to follow make recommendations along the way. Prognosis is certainly guarded. Plan dated October 13, 2023. The patient was seen in room 526. The patient has no additional bleeding. He has received a total of 2 units of packed red blood cells. The patient continues on Zosyn. The results of the EGD and colonoscopy are discussed with him. Hopefully, if the patient stable, he can be discharged soon. Labs, x- rays, and medications are reviewed. Prognosis is guarded. We will continue to follow and make recommendations along the way. Time with Patient: Less than 30
[2023-10-13 13:20] LABS: Anisocytosis Slight; HCT 27.3 % (39.0-53.0); HGB 8.7 gm/dL (13.0-17.5); Hypochromasia Marked; MCH 28.4 pg (25.0-35.0); MCHC 31.8 g/dL (31.0-37.0); MCV 89.2 fL (80.0-100.0); Mean Platelet Volume 7.3; Platelet Count 308 k/uL (150-450); Poikilocytosis Slight; RBC 3.06 m/uL (4.30-5.90); RDW 16.6 % (11.5-15.5); WBC 9.4 k/uL (3.8-10.6)
[2023-10-13 13:45] VITALS: BP 130/67; PULSE 84; TEMP 98.6
[2023-10-13 14:02] LABS: Hypochromasia (M) Present
[2023-10-13 14:03] LABS: Anisocytosis (M) Present
--- NOTE | 2023-10-13 14:23 | P.DS ---
Providers Date of admission: 10/10/23 18:58 Expected date of discharge: 10/13/23 Attending physician: Yusuf Lisa MD Consults: 10/10/23 18:58 Consult Physician Routine Consulting Provider: Cate Rebollar Consult Reason/Comments: gib Do you want consulting provider notified?: Yes 10/10/23 19:11 Consult Physician Routine Consulting Provider: David Cortes Consult Reason/Comments: chf Do you want consulting provider notified?: Yes 10/11/23 09:02 Consult Physician Routine Consulting Provider: Jb Mansfield Consult Reason/Comments: chronic anemia requiring blood transfusions in past Do you want consulting provider notified?: Yes 10/11/23 13:42 Consult Physician Routine Consulting Provider: Justyn Jain Consult Reason/Comments: new renal mass Do you want consulting provider notified?: Yes 10/11/23 13:44 Consult Physician Urgent Consulting Provider: Margarito Kelly Consult Reason/Comments: icu management Do you want consulting provider notified?: Already Contacted 10/11/23 17:15 Consult Physician Routine Consulting Provider: Tay Padilla Consult Reason/Comments: known to service, recent abd aortic aneurysm repair Do you want consulting provider notified?: Yes Primary care physician: Maggy Siegel Hospital Course: 73-year-old gentleman with past medical history significant for PAD, CAD, CABG, GI bleed, anemia-hemoglobin as low as 4.9, herniated disc, hypertension, hyperlipidemia, nicotine dependence, daily alcohol use-reports 2X 12 ounce beers daily, recent inpatient admission, discharged on 09/25/2023 with Left great toe,wet gangrene with subcutaneous gas, follows with the wound care center secondary to chronic left foot wound with prior second and third toe amputation, underwent left great toe amputation. Wound cultures grew gram-negative bacilli, Citrobacter braakii. PICC line placed, receiving IV antibiotics outpatient. Patient also had a recent percutaneous endovascular aortic repair and balloon angioplasty of left common iliac and external iliac artery with Dr. Padilla on October 05, 2023, placed on aspirin and Plavix outpatient. Yesterday presented to the ER with rectal bleeding x 2, bright painless red blood in stools x 1 day. Reports abdominal cramping, left-sided abdominal pain. reports no recent illness, no diarrhea prior, no cough congestion. chest pain palpitations or shortness of breath. Chest xray improved scattered airspace opacities compared to prior with persistent scattered airspace opacities. CTA abdomen and pelvis: Aortobiiliac stent graft is present and patent. The excluded lumen measuring up to 6 x 5.8 cm. No evidence for endoleak. Dilation of the common iliac artery on the right up to 2.5 cm. No evidence for intramural hematoma on noncontrast imaging. There is scattered atherosclerotic plaque throughout the remainder of the abdominal aorta. The visualized major branches of the aorta including the celiac axis and superior mesenteric axis are patent. The superior mesenteric axis is calcified plaque with at least 50% stenosis. Bilateral renal arteries are patent there may be due to left renal artery present.. Severe coronary artery atherosclerosis. Colonic diverticul osis. Mild cardiomegaly. Large cystic lesion in the left upper quadrant unclear if this is coming from the pancreas versus kidneys versus postsurgical seroma.Tmax 99.3, WBC 20.2, lactic acid 1. hemoglobin admission 7.2, decreased to 5.9, receiving transfusion of packed RBCs. 347. Sodium 133, potassium 3.5, bicarb 29, BUN 16, creatinine 0.6, glucose 75, magnesium 1.6, LFTs within normal limits, lipase 58, albumin 2.4 10/12/2023 status post 2 units of packed RBCs, current hemoglobin 8.9, platelets 341 .patient is scheduled for EGD and colonoscopy today. Patient is currently attempting to finish his prep and is not clear. Nursing reporting bloody tinged stool. Denies nausea,vomiting. Denies abdominal pain. Denies chest pain, palpitations or shortness of breath. Maintaining O2 sats in the 90s on 2 L nasal cannula. Magnesium 1.7. 10/13/2023: Dr Jacobs assumed care: Patient was seen status post EGD and colonoscopy, no overnight bleeding episodes were noted. Patient was requesting to be discharged follow-up hemoglobin remained stable Plavix was discontinued in this hospital stay, per cardiology recommendation aspirin was started and Plavix to remain on hold till outpatient follow-up. Patient to continue IV antibiotics were PICC line GENERAL: Alert and oriented 3, sitting up at side of bed, no acute distress HEENT: Normocephalic, atraumatic. Pupils equal and reactive. Sclera anicteric NECK: Supple, no JVD CHEST EXAMINATION: Unlabored, equal air entry, essentially clear, bilateral bases diminished CARDIAC: Normal S1, S2 with no gallops. Systolic murmur. ABDOMEN: Soft. Nondistended, nontender, Bowel sounds normal. No guarding, no rigidity. EXTREMITIES: No pedal edema. NEUROLOGICAL: Cranial nerves II through XII grossly intact ,No focal deficits noted Skin: No rash, warm and dry. Assessment and plan Acute GI bleed, with antral gastritis, colonic ulceration Acute on chronic anemia, status post transfusion of 2 units packed RBCs Acute on chronic CHF, systolic dysfunction, EF 35%. Acute hypoxic respiratory failure, multifactorial secondary to all the above New right solid renal mass, measuring up to 25 mm, urology consulted. Large cystic lesion in the left upper quadrant unclear with this coming from the pancreas versus the kidney versus postsurgical seroma Recent inpatient admission, discharged on 09/25/2023 with Left great toe,wet gangrene with subcutaneouos gas, in a patient with history of PAD, follows with the wound care center secondary to chronic left foot wound with prior second and third toe amputation. Status post left great toe amputation. Wound cultures reporting gram-negative bacilli, Citrobacter braakii. PICC line placed, receiving IV antibiotics at [place]. Recent abdominal aortic aneurysm endovascular repair Colonic diverticulosis Ischemic cardiomyopathy Aortic stenosis Coronary disease with history of CABG Hypertension Hyperlipidemia Nicotine dependence Daily alcohol use Marijuana use * In regards to gastrointestinal bleed, continue patient on omeprazole, lab was discontinued patient to resume aspirin. Outpatient follow-up with PCP, * Rest of home medications reviewed and reconciled, patient has PICC line in place continue patient on IV Zosyn * Sanjay remains hemodynamically stable requesting discharge home follow-up CBC reviewed Patient Condition at Discharge: Fair Plan - Discharge Summary New Discharge Prescriptions: New Omeprazole [PriLOSEC] 40 mg PO BID 30 Days #60 cap Aspirin 81 mg PO DAILY 30 Days #30 tab Continue lisinopriL [Zestril] 2.5 mg PO HS #30 tab Montelukast [Singulair] 10 mg PO HS #30 tab Loratadine [Claritin] 10 mg PO DAILY Atorvastatin [Lipitor] 80 mg PO HS Acetaminophen Tab [Tylenol] 650 mg PO Q6HR PRN tab PRN Reason: Mild Pain Or Fever > 100.5 Gabapentin 600 mg PO TID #9 tab Spironolactone [Aldactone] 25 mg PO DAILY Piperacillin-Tazobactam [Zosyn] 3.375 gm IVPB Q8HR #120 each Folic Acid 1 mg PO DAILY tab Furosemide [Lasix] 40 mg PO DAILY #30 tablet Thiamine [Vitamin B-1] 100 mg PO DAILY tab Magnesium Citrate and Oxide [Magnesium] 500 mg PO DAILY #30 cap polyethylene glycoL 3350 [Miralax] 17 gm PO DAILY PRN PRN Reason: Constipation HYDROcodone/APAP 5-325MG [[place] 5-325] 1 tab PO BID carvediloL [Coreg] 6.25 mg PO BID-W/MEALS Multivitamins, Thera [Multivitamin (formulary)] 1 tab PO DAILY Changed Omeprazole [PriLOSEC] 40 mg PO AC-BID 30 Days #60 cap Discontinued Clopidogrel [Plavix] 75 mg PO DAILY #30 tab Discharge Medication List Montelukast [Singulair] 10 mg PO HS #30 tab 02/22/16 [Rx] lisinopriL [Zestril] 2.5 mg PO HS #30 tab 02/22/16 [Rx] Loratadine [Claritin] 10 mg PO DAILY 09/08/20 [History] Atorvastatin [Lipitor] 80 mg PO HS 09/20/23 [History] Spironolactone [Aldactone] 25 mg PO DAILY 09/20/23 [History] Acetaminophen Tab [Tylenol] 650 mg PO Q6HR PRN tab 09/25/23 [Rx] Folic Acid 1 mg PO DAILY tab 09/25/23 [Rx] Furosemide [Lasix] 40 mg PO DAILY #30 tablet 09/25/23 [Rx] Gabapentin 600 mg PO TID #9 tab 09/25/23 [Rx] Magnesium Citrate and Oxide [Magnesium] 500 mg PO DAILY #30 cap 09/25/23 [Rx] Piperacillin-Tazobactam [Zosyn] 3.375 gm IVPB Q8HR #120 each 09/25/23 [Rx] Thiamine [Vitamin B-1] 100 mg PO DAILY tab 09/25/23 [Rx] polyethylene glycoL 3350 [Miralax] 17 gm PO DAILY PRN 10/05/23 [History] HYDROcodone/APAP 5-325MG [[place] 5-325] 1 tab PO BID 10/10/23 [History] Multivitamins, Thera [Multivitamin (formulary)] 1 tab PO DAILY 10/10/23 [History] carvediloL [Coreg] 6.25 mg PO BID-W/MEALS 10/10/23 [History] Aspirin 81 mg PO DAILY 30 Days #30 tab 10/13/23 [Rx] Omeprazole [PriLOSEC] 40 mg PO AC-BID 30 Days #60 cap 10/13/23 [Rx] Omeprazole [PriLOSEC] 40 mg PO BID 30 Days #60 cap 10/13/23 [Rx] Follow up Appointment(s)/Referral(s): [facility], [NON-STAFF] - [facility], [REFERRING] - Maggy Siegel DO [Primary Care Provider] - 1-2 days (please call office to make an appointment.) Jay Benson MD [STAFF PHYSICIAN] - 2 Weeks (please call office to make an appointment.) Patient Instructions/Handouts: Gastritis (DC), Gastrointestinal Bleeding (DC), Pressure Injury (DC) Discharge Disposition: HOME WITH HOME HEALTH SERVICES
[2023-10-14 09:06] LABS: Methylmalonic Acid 0.82 umol/L (<0.40)
--- NOTE | 2023-10-19 11:56 | CDI ---
Documentation Clarification Form Date: 10/19/23 From: Lissette Padgett Admit Date: 10/10/2023 06:58:00 PM Patient Name: Temo Garcia Visit Number: [id number] Discharge Date: 10/13/2023 04:11:00 PM ATTENTION: The Clinical Documentation Specialists (CDI) and [facility] Coding Staff appreciate your assistance in clarifying documentation. Please respond to the clarification below the line at the bottom and electronically sign. The CDI & [facility] Coding staff will review the response and follow-up if needed. Please note: Queries are made part of the Legal Health Record. If you have any questions, please contact the author of this message via ITS. Dr. Jhonny Jacobs, Acute and chronic anemia is documented is in the H&P, all of the consults & DS. Additional specificity regarding the type of anemia is requested. History/Risk Factors: CAD W CABG on antiplatelets, old [place], ischemic cardiomyopathy, smoker, HLD Clinical indicators: Presented to the ER withrectal bleedingx 2, bright painless red blood in stoolsx 1 day. Reportsabdominal cramping, left-sidedabdominal pain. Hemoglobin: Hematocrit: DOS: 10/10-10/13 7.2 22.2 5.9 18.4 8.4 25.6 9.2 28.6 8.9 27.5 8.7 27.3 Treatment: 2 unit of PRBCs, EGD & colonoscopy: Mild antralgastritis, smallhiatal herniaand short segmentBarrett's esophagus. 3 cm superficialulcerationconsistent with solitary rectal ulcersyndrome, scatteredsigmoid diverticulosisand smallinternal hemorrhoids. Please clarify the type of anemia: [ y ] Acute on chronic blood loss anemia [ ] Chronic blood loss anemia [ ] Iron deficiency anemia [ ] Nutritional anemia [ ] Unable to determine [ ] Other, please specify MTDD
--- NOTE | 2023-10-19 12:07 | CDI ---
Documentation Clarification Form Date: 10/19/23 From: Lissette Padgett Phone: Admit Date: 10/10/2023 06:58:00 PM Patient Name: Temo Garcia Visit Number: [id number] Discharge Date: 10/13/2023 04:11:00 PM ATTENTION: The Clinical Documentation Specialists (CDI) and [facility] Coding Staff appreciate your assistance in clarifying documentation. Please respond to the clarification below the line at the bottom and electronically sign. The CDI & [facility] Coding staff will review the response and follow-up if needed. Please note: Queries are made part of the Legal Health Record. If you have any questions, please contact the author of this message via ITS. Dr. Jhonny Jacobs, GI bleed is documented in the ED Note & H&P. Additional clarification regarding the etiology of the GI bleed is requested. History/risk factors: CAD W CABG on antiplatelets, old [place], ischemic cardiomyopathy, smoker, HLD Clinical Indicators: Presented to the ER with rectal bleeding x 2, bright painless red blood in stools x 1 day. Reports abdominal cramping, left-sided abdominal pain. AGABPEL: No evidence for gastrointestinal hemorrhage. Colonic diverticulosis. EGD/colonoscopy performed and findings: Mild antral gastritis, small hiatal hernia and short segment Gonzalez's esophagus. 3 cm superficial ulceration consistent with solitary rectal ulcer syndrome, scattered sigmoid diverticulosis and small internal hemorrhoids. Hemoglobin: Hematocrit: DOS: 10/10-10/13 7.2 22.2 5.9 18.4 8.4 25.6 9.2 28.6 8.9 27.5 8.7 27.3 Treatment: 2 unit of PRBCs, EGD & colonoscopy Please clarify the etiology of the GI bleed, if known: [ Y GIB due to gastritis [ ] GIB due to rectal ulcer [ ] GIB due to colonic diverticular disease [ ] GIB due to Gonzalez's esophagus [ ] GIB due to internal hemorrhoids [ ] GIB, etiology unknown [ ] Other, please specify [ ] Unable to determine MTDD
== END 2023-10-13 16:11 | disposition home health service (06) | DRG 377 ==
LOC: EC 15:16 → 5NMEDONC 18:58 → 1SOBS 19:39 → 2SICU 10-11 15:33 → 5NMEDONC 10-13 06:26
PROVIDERS: ADMIT Family Medicine; ATTEND Family Medicine
PROC: 30233N1 Transfusion of Nonautologous Red Blood Cells into Peripheral Vein, Percutaneous Approach (ICD-10-PCS; 2023-10-11)
PROC: 0DBP8ZX Excision of Rectum, Via Natural or Artificial Opening Endoscopic, Diagnostic (ICD-10-PCS; principal; 2023-10-12 07:30)
PROC: 0DJ08ZZ Inspection of Upper Intestinal Tract, Via Natural or Artificial Opening Endoscopic (ICD-10-PCS; 2023-10-12 07:30)
DX: K29.71 Gastritis, unspecified, with bleeding (principal); I50.23 Acute on chronic systolic (congestive) heart failure; J96.01 Acute respiratory failure with hypoxia; D62 Acute posthemorrhagic anemia; K62.6 Ulcer of anus and rectum; I11.0 Hypertensive heart disease with heart failure; I73.9 Peripheral vascular disease, unspecified; J44.9 Chronic obstructive pulmonary disease, unspecified; F10.10 Alcohol abuse, uncomplicated; I35.2 Nonrheumatic aortic (valve) stenosis with insufficiency; Z89.412 Acquired absence of left great toe; I25.5 Ischemic cardiomyopathy; K44.9 Diaphragmatic hernia without obstruction or gangrene; K22.70 Barrett's esophagus without dysplasia; K57.30 Diverticulosis of large intestine without perforation or abscess without bleeding; K64.8 Other hemorrhoids; I25.2 Old myocardial infarction; E78.5 Hyperlipidemia, unspecified; I25.10 Atherosclerotic heart disease of native coronary artery without angina pectoris; D49.519 Neoplasm of unspecified behavior of unspecified kidney; M54.9 Dorsalgia, unspecified; F17.200 Nicotine dependence, unspecified, uncomplicated; Z71.6 Tobacco abuse counseling; Z79.02 Long term (current) use of antithrombotics/antiplatelets; Z79.899 Other long term (current) drug therapy; Z95.1 Presence of aortocoronary bypass graft
CPT/HCPCS: 36415; 43235; 45380; 71045; 74174; 80053; 82140; 82607; 82728; 82747; 83540; 83550; 83605; 83690; 83735; 83921; 84100; 84484; 85025; 85027; 85610; 85730; 86850; 86900; 86901; 86920; 88305; 93005; 96361; 96365; 96375; 99291

== ENCOUNTER 2023-10-24 16:44 | Inpatient (IN) | payer MEDICARE ==
--- NOTE | 2023-10-24 17:33 | ED ---
Extremity Problem HPI - General Chief complaint: Extremity Injury, Lower Stated complaint: poss gangrene in toe Time Seen by Provider: 10/24/23 17:06 Source: patient, RN notes reviewed Mode of arrival: ambulatory Limitations: no limitations - History of Present Illness Initial comments: This is a 73-year-old male who presents to the emergency department for concerns of gangrene in the left foot. He has been dealing with this for a long period of time and he first had his 2nd and 3rd toes amputated, followed by his first toe last month. However, this is continuing to get worse. He is on Zosyn through a PICC line every 8 hours, which he has been receiving for a couple of weeks. He also has wound care come and see him regularly. States that he was advised by Dr. Padilla's office to come to the emergency department for evaluation due to worsening symptoms. His wound care nurse was also concerned about the gangrene getting worse and advised he come to the emergency department as well. States that this is becoming increasingly painful and it is difficult to walk. He is supposed to have a stent placed in the left leg to improve blood flow and he was told that this cannot be done until he had his AAA repaired. This was repaired at the end of last month. MD Complaint: extremity pain - Related Data Home Medications Medication Instructions Recorded Confirmed Loratadine [Claritin] 10 mg PO DAILY 09/08/20 10/24/23 Atorvastatin [Lipitor] 80 mg PO HS 09/20/23 10/24/23 Spironolactone [Aldactone] 25 mg PO DAILY 09/20/23 10/24/23 polyethylene glycoL 3350 [Miralax] 17 gm PO DAILY PRN 10/05/23 10/24/23 HYDROcodone/APAP 5-325MG [[place] 1 tab PO BID 10/10/23 10/24/23 5-325] Multivitamins, Thera [Multivitamin 1 tab PO DAILY 10/10/23 10/24/23 (formulary)] carvediloL [Coreg] 6.25 mg PO BID-W/MEALS 10/10/23 10/24/23 Albuterol Nebulized [Ventolin 2.5 mg INHALATION RT-QID PRN 10/24/23 10/24/23 Nebulized] Silver Sulfadiazine [Silver 1 applic TOPICAL BID 10/24/23 10/24/23 Sulfadiazine 1%] Previous Rx's Medication Instructions Recorded Montelukast [Singulair] 10 mg PO HS #30 tab 02/22/16 lisinopriL [Zestril] 2.5 mg PO HS #30 tab 02/22/16 Acetaminophen Tab [Tylenol] 650 mg PO Q6HR PRN tab 09/25/23 Folic Acid 1 mg PO DAILY tab 09/25/23 Furosemide [Lasix] 40 mg PO DAILY #30 tablet 09/25/23 Gabapentin 600 mg PO TID #9 tab 09/25/23 Magnesium Citrate and Oxide 500 mg PO DAILY #30 cap 09/25/23 [Magnesium] Piperacillin-Tazobactam [Zosyn] 3.375 gm IVPB Q8HR #120 each 09/25/23 Thiamine [Vitamin B-1] 100 mg PO DAILY tab 09/25/23 Aspirin 81 mg PO DAILY 30 Days #30 tab 10/13/23 Omeprazole [PriLOSEC] 40 mg PO AC-BID 30 Days #60 cap 10/13/23 Omeprazole [PriLOSEC] 40 mg PO BID 30 Days #60 cap 10/13/23 Allergies Allergy/AdvReac Type Severity Reaction Status Date / Time No Known Allergies Allergy Verified 10/24/23 21:48 Review of Systems ROS Statement: Those systems with pertinent positive or pertinent negative responses have been documented in the HPI. ROS Other: All systems not noted in ROS Statement are negative. Past Medical History Past Medical History: Coronary Artery Disease (CAD), Heart Failure, Hyperlipidemia, Hypertension, Vascular Disorder Additional Past Medical History / Comment(s): aortic aneusrym, herniated disc, peripheral vascular disease Last Myocardial Infarction Date:: 02/2023 History of Any Multi-Drug Resistant Organisms: None Reported Past Surgical History: Appendectomy, Coronary Bypass/CABG, Orthopedic Surgery Additional Past Surgical History / Comment(s): Right rotater cuff repair, L first and second toe removal Past Anesthesia/Blood Transfusion Reactions: No Reported Reaction Past Psychological History: No Psychological Hx Reported Smoking Status: Current some day smoker, Light tobacco smoker Past Alcohol Use History: Daily, Occasional Past Drug Use History: Marijuana - Past Family History Father Family Medical History: Coronary Artery Disease (CAD) Additional Family Medical History / Comment(s): triple bypass Mother Family Medical History: Coronary Artery Disease (CAD), Dementia General Exam Limitations: no limitations General appearance: alert, in no apparent distress Head exam: Present: atraumatic, normocephalic, normal inspection Respiratory exam: Present: normal lung sounds bilaterally. Absent: respiratory distress, wheezes, rales, rhonchi, stridor Cardiovascular Exam: Present: regular rate, normal rhythm, normal heart sounds. Absent: systolic murmur, diastolic murmur, rubs, gallop, clicks Extremities exam: Present: other (Necrotic tissue to the top of the left foot where toes 1 and 2 used to be. Associated foul odor. Severe tenderness.) Neurological exam: Present: alert, oriented X3, CN II-XII intact Psychiatric exam: Present: normal affect, normal mood Course Vital Signs 10/24/23 10/24/23 10/24/23 16:47 21:28 22:09 Temperature 98.5 F Pulse Rate 64 74 Respiratory 18 18 15 Rate Blood Pressure 155/70 133/54 133/54 O2 Sat by Pulse 96 96 Oximetry 10/25/23 10/25/23 10/25/23 03:11 05:17 09:30 Temperature 98.0 F 98.0 F Pulse Rate 78 94 89 Respiratory 17 16 17 Rate Blood Pressure 139/62 136/68 143/68 O2 Sat by Pulse 98 95 96 Oximetry 10/25/23 10/25/23 10/25/23 10:25 12:00 14:10 Temperature 97.8 F Pulse Rate 86 80 78 Respiratory 18 17 17 Rate Blood Pressure 142/64 144/73 126/58 O2 Sat by Pulse 97 98 97 Oximetry 10/25/23 10/25/23 17:18 18:05 Temperature 98.0 F Pulse Rate 79 89 Respiratory 17 18 Rate Blood Pressure 123/54 139/68 O2 Sat by Pulse 97 99 Oximetry Medical Decision Making - Medical Decision Making This is a 73-year-old male who presents to the emergency department for wors ening left foot pain and progression of gangrene. Was pt. sent in by a medical professional or institution? @ -No Did you speak to anyone other than the patient for history? @ -No Did you review nursing and triage notes? @ -Yes, and I agree, it is accurate with regards to the patient's symptoms. Were old charts reviewed? @ -No Differential Diagnosis? @ -Differential Left Foot Pain: Gangrene, osteomyelitis, cellulitis, this is not meant to be an all-inclusive list. EKG interpreted by me (3pts min.)? @ -Not obtained X-rays interpreted by me (1pt min.)? @ -X-ray of the left foot obtained. My interpretation identifies no evidence of subcutaneous gas formation. CT interpreted by me (1pt min.)? @ -Not obtained U/S interpreted by me (1pt. min.)? @ -Not obtained What testing was considered but not performed? (CT, X-rays, U/S, labs)? Why? @ -None What meds were considered but not given? Why? @ -None Did you discuss the management of the patient with other professionals? @ -Yes, Dr. Lisa, who accepts the patient for admission. Did you reconcile home meds? @ -No Was smoking cessation discussed for >3mins.? @ -I discussed smoking cessation for greater than 3 minutes. The risk of smoking were discussed with the patient including but not limited to risks of cancer, stroke, coronary artery disease and COPD. Also discussed with patient were multiple methods of quitting smoking. Lastly we discussed the financial cost of smoking. Was critical care preformed (if so, how long)? @ -No Were there social determinants of health that impacted care today? How? (Homelessness, low income, unemployed, alcoholism, drug addiction, transportation, low edu. Level, literacy, decrease access to med. care, group home, rehab)? @ -No Was there de-escalation of care discussed even if they declined? (Discuss DNR or withdrawal of care, Hospice)? @ -No What co-morbidities impacted this encounter? (DM, HTN, Smoking, COPD, CAD, Cancer, CVA, Hep., AIDS, mental health diagnosis, sleep apnea, morbid obesity)? @ -CAD, HLD, HTN, vascular disorder, smoking Was patient admitted / discharged? @ -Admitted. Lab work obtained revealing leukocytosis with a white blood cell count of 11.5. CRP elevated at 6.2. X-ray of the left foot obtained demonstrating irregular margins at the amputation sites. It is unclear if this is a postsurgical change or infection. It was advised that this could represent osteomyelitis. Soft tissue swelling was also seen throughout the foot. Given the patient's worsening symptoms with possible osteomyelitis on imaging, patient admitted to medicine for further management. Consult placed for vascular surgery and infectious disease. Blood and wound cultures ordered. Patient is on Zosyn at home via PICC line q8h, which was continued. Vancomycin added as well for possible osteomyelitis. Undiagnosed new problem with uncertain prognosis? @ -None Drug Therapy requiring intensive monitoring for toxicity (Heparin, Nitro, Insulin, Cardizem)? @ -None Were any procedures done? @ -None Diagnosis/symptom? @ -Gangrene left foot Acute, or Chronic, or Acute on Chronic? @ -Chronic Uncomplicated (without systemic symptoms) or Complicated (systemic symptoms)? @ -Uncomplicated Side effects of treatment? @ -None Exacerbation, Progression, or Severe Exacerbation] @ -Progression Poses a threat to life or bodily function? @ -Yes This case was discussed in detail with the attending ED physician, Dr. Lang. Presentation, findings, and treatment plan discussed in detail as well. - Lab Data Result diagrams: 10/25/23 08:04 10/25/23 08:04 Lab Results 10/24/23 10/24/23 10/24/23 Range/Units 17:40 17:40 17:40 WBC 11.5 H (3.8-10.6) k/uL RBC 2.77 L (4.30-5.90) m/uL Hgb 8.1 L (13.0-17.5) gm/dL Hct 25.2 L (39.0-53.0) % MCV 91.0 (80.0-100.0) fL MCH 29.1 (25.0-35.0) pg MCHC 32.0 (31.0-37.0) g/dL RDW 18.4 H (11.5-15.5) % Plt Count 416 (150-450) k/uL MPV 7.6 Neutrophils % 82 % Lymphocytes % 4 % Monocytes % 6 % Eosinophils % 5 % Basophils % 0 % Neutrophils # 9.4 H (1.3-7.7) k/uL Lymphocytes # 0.4 L (1.0-4.8) k/uL Monocytes # 0.7 (0-1.0) k/uL Eosinophils # 0.5 (0-0.7) k/uL Basophils # 0.1 (0-0.2) k/uL Hypochromasia Moderate Anisocytosis Slight ESR 37 H (0-20) mm/Hr Sodium 133 L (137-145) mmol/L Potassium 4.2 (3.5-5.1) mmol/L Chloride 102 (98-107) mmol/L Carbon Dioxide 28 (22-30) mmol/L Anion Gap 3 mmol/L BUN 24 H (9-20) mg/dL Creatinine 0.69 (0.66-1.25) mg/dL Est GFR (CKD-EPI)AfAm >90 (>60 ml/min/1.73 sqM) Est GFR (CKD-EPI)NonAf >90 (>60 ml/min/1.73 sqM) Glucose 92 (74-99) mg/dL Plasma Lactic Acid William 0.7 (0.7-2.0) mmol/L Calcium 8.9 (8.4-10.2) mg/dL Total Bilirubin 0.4 (0.2-1.3) mg/dL AST 23 (17-59) U/L ALT 16 (4-49) U/L Alkaline Phosphatase 84 (38-126) U/L C-Reactive Protein 6.2 H (<1.0) mg/dL Total Protein 6.0 L (6.3-8.2) g/dL Albumin 3.3 L (3.5-5.0) g/dL - Radiology Data Radiology results: report reviewed, image reviewed Disposition Clinical Impression: Gangrene of left foot Disposition: ADMITTED IP TO THIS [facility] Time of Disposition: 19:22
[2023-10-24 18:09] LABS: Anisocytosis Slight; Basophils # (A) 0.1 k/uL (0-0.2); Basophils % (A) 0 %; Eosinophils # (A) 0.5 k/uL (0-0.7); Eosinophils % (A) 5 %; HCT 25.2 % (39.0-53.0); HGB 8.1 gm/dL (13.0-17.5); Hypochromasia Moderate; Lymphocytes # (A) 0.4 k/uL (1.0-4.8); Lymphocytes % (A) 4 %; MCH 29.1 pg (25.0-35.0); Mean Platelet Volume 7.6; Monocytes # (A) 0.7 k/uL (0-1.0); Monocytes % (A) 6 %; Neutrophils # (A) 9.4 k/uL (1.3-7.7); Neutrophils % (A) 82 %; Platelet Count 416 k/uL (150-450); RBC 2.77 m/uL (4.30-5.90); RDW 18.4 % (11.5-15.5); WBC 11.5 k/uL (3.8-10.6)
[2023-10-24] MEDS: MORPHINE SULFATE 4 MG/ML SYRINGE IVP STA (18:09)
[2023-10-24 18:21] LABS: ALT 16 U/L (4-49); AST 23 U/L (17-59); African American GFR (CKD) >90 (>60 ml/min/1.73 sqM); Albumin 3.3 g/dL (3.5-5.0); Alkaline Phosphatase 84 U/L (38-126); Anion Gap 3 mmol/L; Blood Urea Nitrogen 24 mg/dL (9-20); C Reactive Protein 6.2 mg/dL (<1.0); Calcium 8.9 mg/dL (8.4-10.2); Carbon Dioxide 28 mmol/L (22-30); Chloride 102 mmol/L (98-107); Glucose 92 mg/dL (74-99); Non-African American GFR(CKD) >90 (>60 ml/min/1.73 sqM); Potassium 4.2 mmol/L (3.5-5.1); Sodium 133 mmol/L (137-145); Total Bilirubin 0.4 mg/dL (0.2-1.3)
--- NOTE | 2023-10-24 18:27 | XR ---
EXAMINATION TYPE: XR foot complete LT DATE OF EXAM: 10/24/2023 6:08 PM CLINICAL INDICATION:Male, 73 years old with history of Gangrene; [facility] COMPARISON: 09/19/2023. TECHNIQUE: XR foot complete LT examined in the AP, oblique, and lateral projections. FINDINGS/IMPRESSION: * Post amputation changes of the left foot involving the first, second and third digits. Irregular m argins of the amputation sites are present at these digits. Unclear whether this is postsurgical oakley ge or infection. 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 Findings new from 09/19/2023. So ft tissue swelling throughout the foot. * No evidence of fracture. * Multi focal osteoporosis with joint space narrowing and osteophyte formation.
[2023-10-24] MEDS ORDERED: NALOXONE 0.4 MG/ML 1 ML VIAL IV PRN (19:33)
[2023-10-24] MEDS ORDERED: ONDANSETRON 4 MG/2 ML VIAL IVP PRN (19:33)
[2023-10-24] MEDS ORDERED: VANCOMYCIN IV PER PHARMACY 1 EACH MISC MISCELLANE PRN (20:01)
[2023-10-24] MEDS: VANCOMYCIN 1,250 MG in SODIUM CHLORIDE 0.9% 250 ML IVPB STA (21:09)
[2023-10-24] MEDS: MORPHINE SULFATE 4 MG/ML SYRINGE IV PRN (22:19)
[2023-10-25] MEDS: HYDROcodone/APAP 5-325MG 1 EACH TAB PO PRN (05:16)
[2023-10-25 09:03] LABS: Anisocytosis Slight; Basophils # (A) 0.1 k/uL (0-0.2); Basophils % (A) 1 %; Eosinophils # (A) 0.7 k/uL (0-0.7); Eosinophils % (A) 7 %; HGB 7.7 gm/dL (13.0-17.5); Hypochromasia Marked; Lymphocytes # (A) 0.5 k/uL (1.0-4.8); Lymphocytes % (A) 5 %; MCH 28.4 pg (25.0-35.0); MCHC 30.7 g/dL (31.0-37.0); MCV 92.6 fL (80.0-100.0); Mean Platelet Volume 7.6; Monocytes # (A) 0.8 k/uL (0-1.0); Monocytes % (A) 8 %; Neutrophils # (A) 8.1 k/uL (1.3-7.7); Neutrophils % (A) 79 %; Platelet Count 419 k/uL (150-450); WBC 10.4 k/uL (3.8-10.6)
[2023-10-25] MEDS: ASPIRIN 81 MG PO SCH (09:19)
[2023-10-25] MEDS: SPIRONOLACTONE 25 MG TAB PO SCH (09:20)
[2023-10-25] MEDS: PANTOPRAZOLE 40 MG TABLET PO SCH (09:20)
[2023-10-25] MEDS: GABAPENTIN 300 MG CAP PO SCH (09:20)
[2023-10-25] MEDS: carvediloL 6.25 MG TAB PO SCH (09:20)
[2023-10-25] MEDS: FUROSEMIDE 40 MG TAB PO SCH (09:20)
[2023-10-25 09:22] LABS: African American GFR (CKD) >90 (>60 ml/min/1.73 sqM); Anion Gap 6 mmol/L; Blood Urea Nitrogen 16 mg/dL (9-20); Calcium 8.6 mg/dL (8.4-10.2); Carbon Dioxide 26 mmol/L (22-30); Chloride 103 mmol/L (98-107); Glucose 82 mg/dL (74-99); Non-African American GFR(CKD) >90 (>60 ml/min/1.73 sqM); Sodium 135 mmol/L (137-145)
[2023-10-25] MEDS: VANCOMYCIN 1,250 MG in SODIUM CHLORIDE 0.9% 250 ML IVPB SCH ×2 (09:23→17:22)
[2023-10-25 11:47] LABS: Erythrocyte Sedimentation Rate 37 mm/Hr (0-20)
--- NOTE | 2023-10-25 14:02 | P.GSCN ---
History of Present Illness Consult date: 10/25/23 Reason for Consult: Gangrene left foot Requesting physician: Naida Vigil History of present illness: This is a 73-year-old male with known peripheral arterial disease who recently underwent percutaneous endovascular aortic repair of abdominal aortic aneurysm, balloon angioplasty of the left common iliac and external iliac artery done on 10/05/[address] Padilla. 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 This was done on 09/20/2023. He states he has been getting wound care, and his visiting nurse was out to see him on Sunday and recommended that he go to the emergency department or call his physician. He called Dr. Padilla's office on Sunday and they had recommended patient come into the emergency department for further evaluation.. He does have pain in that left foot where the wound is, states there is some drainage and foul odor. Patient was also here recently for a GI bleed earlier this month and had a hemoglobin of 5.9 on admission underwent EGD and colonoscopy on 10/12/2023. EGD without any significant findings, colonoscopy significant for rectal ulcerations. Patient denies any bleeding since he left the hospital. Patient is still on IV Zosyn, he has a PICC line present. Today's labs WBC 10.4 hemoglobin 7.7 hematocrit 25 platelet count 419,000 sodium 135 potassium 4.0 BUN 16 creatinine 0.49. Patient denies any shortness of breath, chest pain, abdomin al pain, nausea or vomiting. Denies any bleeding. Review of Systems A 14 point review systems was completed all pertinent positives and negatives as stated in the HPI. Past Medical History Past Medical History: Coronary Artery Disease (CAD), Heart Failure, Hyperlipidemia, Hypertension, Vascular Disorder Additional Past Medical History / Comment(s): aortic aneusrym, herniated disc, peripheral vascular disease Last Myocardial Infarction Date:: 02/2023 History of Any Multi-Drug Resistant Organisms: None Reported Past Surgical History: Appendectomy, Coronary Bypass/CABG, Orthopedic Surgery Additional Past Surgical History / Comment(s): Right rotater cuff repair, L first and second toe removal Past Anesthesia/Blood Transfusion Reactions: No Reported Reaction Past Psychological History: No Psychological Hx Reported Smoking Status: Current some day smoker, Light tobacco smoker Past Alcohol Use History: Daily, Occasional Past Drug Use History: Marijuana - Past Family History Father Family Medical History: Coronary Artery Disease (CAD) Additional Family Medical History / Comment(s): triple bypass Mother Family Medical History: Coronary Artery Disease (CAD), Dementia Medications and Allergies Home Medications Medication Instructions Recorded Confirmed Type Montelukast [Singulair] 10 mg PO HS #30 tab 02/22/16 10/24/23 Rx lisinopriL [Zestril] 2.5 mg PO HS #30 tab 02/22/16 10/24/23 Rx Loratadine [Claritin] 10 mg PO DAILY 09/08/20 10/24/23 History Atorvastatin [Lipitor] 80 mg PO HS 09/20/23 10/24/23 History Spironolactone [Aldactone] 25 mg PO DAILY 09/20/23 10/24/23 History Acetaminophen Tab [Tylenol] 650 mg PO Q6HR PRN tab 09/25/23 10/24/23 Rx Folic Acid 1 mg PO DAILY tab 09/25/23 10/24/23 Rx Furosemide [Lasix] 40 mg PO DAILY #30 tablet 09/25/23 10/24/23 Rx Gabapentin 600 mg PO TID #9 tab 09/25/23 10/24/23 Rx Magnesium Citrate and Oxide 500 mg PO DAILY #30 cap 09/25/23 10/24/23 Rx [Magnesium] Piperacillin-Tazobactam [Zosyn] 3.375 gm IVPB Q8HR #120 each 09/25/23 10/24/23 Rx Thiamine [Vitamin B-1] 100 mg PO DAILY tab 09/25/23 10/24/23 Rx polyethylene glycoL 3350 [Miralax] 17 gm PO DAILY PRN 10/05/23 10/24/23 History HYDROcodone/APAP 5-325MG [[place] 1 tab PO BID 10/10/23 10/24/23 History 5-325] Multivitamins, Thera [Multivitamin 1 tab PO DAILY 10/10/23 10/24/23 History (formulary)] carvediloL [Coreg] 6.25 mg PO BID-W/MEALS 10/10/23 10/24/23 History Aspirin 81 mg PO DAILY 30 Days #30 tab 10/13/23 10/24/23 Rx Omeprazole [PriLOSEC] 40 mg PO AC-BID 30 Days #60 cap 10/13/23 10/24/23 Rx Omeprazole [PriLOSEC] 40 mg PO BID 30 Days #60 cap 10/13/23 10/24/23 Rx Albuterol Nebulized [Ventolin 2.5 mg INHALATION RT-QID PRN 10/24/23 10/24/23 History Nebulized] Silver Sulfadiazine [Silver 1 applic TOPICAL BID 10/24/23 10/24/23 History Sulfadiazine 1%] Allergies Allergy/AdvReac Type Severity Reaction Status Date / Time No Known Allergies Allergy Verified 10/24/23 21:48 Surgical - Exam Vital Signs Temp Pulse Resp BP Pulse Ox 98.5 F 64 18 155/70 96 10/24/23 16:47 10/24/23 16:47 10/24/23 16:47 10/24/23 16:47 10/24/23 16:47 General appearance: The patient is alert, oriented, appears in no acute distress. HET: Head is normocephalic and atraumatic. Pupils are equal and reactive. Neck: Supple. Heart: Regular. Lungs: Equal expansion, normal respiratory effort. Abdomen: Soft, nontender, nondistended. Extremities: Left lower extremity nonpalpable DP or PT pulse. Very dry tough skin. Amputation of toes 1 through 3, amputation site with nonviable tissue, bone exposure. Fourth toe with discoloration no active drainage. Neurological: No focal deficits tissue. Strength and sensation are grossly intact. Results - Labs 10/25/23 08:04 10/25/23 08:04 Abnormal Lab Results - Last 24 Hours (Table) 10/24/23 10/24/23 10/25/23 Range/Units 17:40 17:40 08:04 WBC 11.5 H (3.8-10.6) k/uL RBC 2.77 L (4.30-5.90) m/uL Hgb 8.1 L (13.0-17.5) gm/dL Hct 25.2 L (39.0-53.0) % MCHC (31.0-37.0) g/dL RDW 18.4 H (11.5-15.5) % Neutrophils # 9.4 H (1.3-7.7) k/uL Lymphocytes # 0.4 L (1.0-4.8) k/uL Sodium 133 L 135 L (137-145) mmol/L BUN 24 H (9-20) mg/dL Creatinine 0.49 L (0.66-1.25) mg/dL C-Reactive Protein 6.2 H (<1.0) mg/dL Total Protein 6.0 L (6.3-8.2) g/dL Albumin 3.3 L (3.5-5.0) g/dL 10/25/23 Range/Units 08:04 WBC (3.8-10.6) k/uL RBC 2.70 L (4.30-5.90) m/uL Hgb 7.7 L (13.0-17.5) gm/dL Hct 25.0 L (39.0-53.0) % MCHC 30.7 L (31.0-37.0) g/dL RDW 18.0 H (11.5-15.5) % Neutrophils # 8.1 H (1.3-7.7) k/uL Lymphocytes # 0.5 L (1.0-4.8) k/uL Sodium (137-145) mmol/L BUN (9-20) mg/dL Creatinine (0.66-1.25) mg/dL C-Reactive Protein (<1.0) mg/dL Total Protein (6.3-8.2) g/dL Albumin (3.5-5.0) g/dL Diabetes panel 10/24/23 10/25/23 Range/Units 17:40 08:04 Sodium 133 L 135 L (137-145) mmol/L Potassium 4.2 4.0 (3.5-5.1) mmol/L Chloride 102 103 (98-107) mmol/L Carbon Dioxide 28 26 (22-30) mmol/L BUN 24 H 16 (9-20) mg/dL Creatinine 0.69 0.49 L (0.66-1.25) mg/dL Glucose 92 82 (74-99) mg/dL Calcium 8.9 8.6 (8.4-10.2) mg/dL AST 23 (17-59) U/L ALT 16 (4-49) U/L Alkaline Phosphatase 84 (38-126) U/L Total Protein 6.0 L (6.3-8.2) g/dL Albumin 3.3 L (3.5-5.0) g/dL Calcium panel 10/24/23 10/25/23 Range/Units 17:40 08:04 Calcium 8.9 8.6 (8.4-10.2) mg/dL Albumin 3.3 L (3.5-5.0) g/dL Pituitary panel 10/24/23 10/25/23 Range/Units 17:40 08:04 Sodium 133 L 135 L (137-145) mmol/L Potassium 4.2 4.0 (3.5-5.1) mmol/L Chloride 102 103 (98-107) mmol/L Carbon Dioxide 28 26 (22-30) mmol/L BUN 24 H 16 (9-20) mg/dL Creatinine 0.69 0.49 L (0.66-1.25) mg/dL Glucose 92 82 (74-99) mg/dL Calcium 8.9 8.6 (8.4-10.2) mg/dL Adrenal panel 10/24/23 10/25/23 Range/Units 17:40 08:04 Sodium 133 L 135 L (137-145) mmol/L Potassium 4.2 4.0 (3.5-5.1) mmol/L Chloride 102 103 (98-107) mmol/L Carbon Dioxide 28 26 (22-30) mmol/L BUN 24 H 16 (9-20) mg/dL Creatinine 0.69 0.49 L (0.66-1.25) mg/dL Glucose 92 82 (74-99) mg/dL Calcium 8.9 8.6 (8.4-10.2) mg/dL Total Bilirubin 0.4 (0.2-1.3) mg/dL AST 23 (17-59) U/L ALT 16 (4-49) U/L Alkaline Phosphatase 84 (38-126) U/L Total Protein 6.0 L (6.3-8.2) g/dL Albumin 3.3 L (3.5-5.0) g/dL - Imaging Comments: Left foot x-ray reports post amputation changes of the left foot involving the first second and third digits. Irregular margins of the amputation sites are present at these digits. Unclear whether this is postsurgical change or infection. 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 Findings new from 09/19/2023. Soft tissue swelling throughout the foot. No evidence of fracture. Multifocal osteoporosis with joint space narrowing and osteophyte formation. Assessment and Plan Assessment: 1. History of severe peripheral arterial disease status post amputation of toes 1 through 3. Dry gangrene left foot gangrene 2. History of abdominal aortic aneurysm status post percutaneous endovascular aortic repair and balloon angioplasty left common iliac, external iliac artery 3. Anemia 4. Recent GI bleed requiring blood transfusion 5. Coronary artery disease with previous CABG 6. Heart failure with reduced EF 7. Ischemic cardiomyopathy, EF 35 to 40% Plan: 1. Continue symptomatic and supportive care 2. Continue medical management 3. Continue antibiotics 4. Further recommendations forthcoming based on clinical course and vascular surgeon recommendations Thank you for this consultation, we will continue to follow. The impression and plan of care has been dictated as directed. Dr. Reyna I performed a history and examination of this patient, discussed the same with the dictator. I agree with the dictator's note ,documented as a scribe. Any additional findings or plans will be noted.
--- NOTE | 2023-10-25 15:25 | P.HPIM ---
History of Present Illness H&P Date: 10/25/23 This is a 73-year-old gentleman with past medical history significant for PAD, CAD, CABG, GI bleed, anemia-hemoglobin as low as 4.9, herniated disc, hypertension, hyperlipidemia, nicotine dependence, daily alcohol use, recent inpatient admission, discharged on 09/25/2023 with Left great toe,wet gangrene with subcutaneous gas, follows with the wound care center secondary to chronic left foot wound with prior second and third toe amputation, underwent left great toe amputation. Wound cultures grew gram-negative bacilli, Citrobacter braakii. PICC line placed, receiving IV antibiotics, Zosyn, outpatient. Patient also had a recent percutaneous endovascular aortic repair and balloon angioplasty of left common iliac and external iliac artery with Dr. Padilla on October 05, 2023. Patient readmitted to the hospital for acute GI bleed, hemoglobin 5.9 on admission, underwent EGD and colonoscopy on 10/12/2023 reported mild antral gastritis, small hiatal hernia and short segment Gonzalez's esophagus ,3 cm superficial ulceration consistent with solitary rectal ulcer syndrome, scattered sigmoid diverticulosis and small internal hemorrhoids. Biopsies reported nondiagnostic for malignancy. Reports Sunday, visiting nurse changed his bandage, concerned over the appearance, recommended him to call his surgeon's office. Patient called Dr. Dalal's office, but physician was not in and the office recommended he proceed to the ER for further evaluation. Reports nondraining, constant pain unrelieved by current pain med regimen. Has an appointment set up with pain specialist, on November 08. Denies any further trauma/falls denies chest pain, palpitations or shortness of breath. Denies any fevers chills or sweats. Denies any nausea vomiting or diarrhea. Denies any abdominal pain.WBC 10.4 hemoglobin 7.7 platelets 419 sodium 135 potassium 4.0 bicarb 26 BUN 16 creatinine 0.49. Left foot x-ray reported post amputation changes of the left foot involving the first second and third digits. Irregular margins of the amputation sites are present at these digits. Unclear whether this is postsurgical change or infection. 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 Findings new from 09/19/2023. Soft tissue swelling throughout the foot. No evidence of fracture. Multifocal osteoporosis with joint space narrowing and osteophyte formation. Review of Systems ROS Statement: Those systems with pertinent positive or pertinent negative responses have been documented in the HPI. ROS Other: All systems not noted in ROS Statement are negative. Past Medical History Past Medical History: Coronary Artery Disease (CAD), Heart Failure, Hyperlipidemia, Hypertension, Vascular Disorder Additional Past Medical History / Comment(s): aortic aneusrym, herniated disc, peripheral vascular disease Last Myocardial Infarction Date:: 02/2023 History of Any Multi-Drug Resistant Organisms: None Reported Past Surgical History: Appendectomy, Coronary Bypass/CABG, Orthopedic Surgery Additional Past Surgical History / Comment(s): Right rotater cuff repair, L first and second toe removal Past Anesthesia/Blood Transfusion Reactions: No Reported Reaction Past Psychological History: No Psychological Hx Reported Smoking Status: Current some day smoker, Light tobacco smoker Past Alcohol Use History: Daily, Occasional Past Drug Use History: Marijuana - Past Family History Father Family Medical History: Coronary Artery Disease (CAD) Additional Family Medical History / Comment(s): triple bypass Mother Family Medical History: Coronary Artery Disease (CAD), Dementia Medications and Allergies Home Medications Medication Instructions Recorded Confirmed Type Montelukast [Singulair] 10 mg PO HS #30 tab 02/22/16 10/24/23 Rx lisinopriL [Zestril] 2.5 mg PO HS #30 tab 02/22/16 10/24/23 Rx Loratadine [Claritin] 10 mg PO DAILY 09/08/20 10/24/23 History Atorvastatin [Lipitor] 80 mg PO HS 09/20/23 10/24/23 History Spironolactone [Aldactone] 25 mg PO DAILY 09/20/23 10/24/23 History Acetaminophen Tab [Tylenol] 650 mg PO Q6HR PRN tab 09/25/23 10/24/23 Rx Folic Acid 1 mg PO DAILY tab 09/25/23 10/24/23 Rx Furosemide [Lasix] 40 mg PO DAILY #30 tablet 09/25/23 10/24/23 Rx Gabapentin 600 mg PO TID #9 tab 09/25/23 10/24/23 Rx Magnesium Citrate and Oxide 500 mg PO DAILY #30 cap 09/25/23 10/24/23 Rx [Magnesium] Piperacillin-Tazobactam [Zosyn] 3.375 gm IVPB Q8HR #120 each 09/25/23 10/24/23 Rx Thiamine [Vitamin B-1] 100 mg PO DAILY tab 09/25/23 10/24/23 Rx polyethylene glycoL 3350 [Miralax] 17 gm PO DAILY PRN 10/05/23 10/24/23 History HYDROcodone/APAP 5-325MG [[place] 1 tab PO BID 10/10/23 10/24/23 History 5-325] Multivitamins, Thera [Multivitamin 1 tab PO DAILY 10/10/23 10/24/23 History (formulary)] carvediloL [Coreg] 6.25 mg PO BID-W/MEALS 10/10/23 10/24/23 History Aspirin 81 mg PO DAILY 30 Days #30 tab 10/13/23 10/24/23 Rx Omeprazole [PriLOSEC] 40 mg PO AC-BID 30 Days #60 cap 10/13/23 10/24/23 Rx Omeprazole [PriLOSEC] 40 mg PO BID 30 Days #60 cap 10/13/23 10/24/23 Rx Albuterol Nebulized [Ventolin 2.5 mg INHALATION RT-QID PRN 10/24/23 10/24/23 History Nebulized] Silver Sulfadiazine [Silver 1 applic TOPICAL BID 10/24/23 10/24/23 History Sulfadiazine 1%] Allergies Allergy/AdvReac Type Severity Reaction Status Date / Time No Known Allergies Allergy Verified 10/24/23 21:48 Physical Exam Vitals: Vital Signs Temp Pulse Resp BP Pulse Ox 10/25/23 14:10 97.8 F 78 17 126/58 97 10/25/23 12:00 80 17 144/73 98 10/25/23 10:25 86 18 142/64 97 10/25/23 09:30 98.0 F 89 17 143/68 96 10/25/23 05:17 94 16 136/68 95 10/25/23 03:11 98.0 F 78 17 139/62 98 10/24/23 22:09 15 133/54 10/24/23 21:28 74 18 133/54 96 10/24/23 16:47 98.5 F 64 18 155/70 96 Intake and Output 10/24/23 10/25/23 10/25/23 22:59 06:59 14:59 Output Total 775 Balance -775 Output: Urine 775 Other: Weight 65.771 kg - Exam PHYSICAL EXAMINATION: VS: As above GENERAL: Alert and oriented 3, sitting up at side of bed, no acute distress HEENT: Normocephalic, atraumatic. Pupils equal and reactive. Sclera anicteric NECK: Supple, no JVD CHEST EXAMINATION: Unlabored, equal air entry, essentially clear, bilateral bases diminished CARDIAC: Normal S1, S2 with no gallops. Systolic murmur. ABDOMEN: Soft. Nondistended, nontender, Bowel sounds normal. No guarding, no rigidity. EXTREMITIES: Left foot dressing clean dry and intact. NEUROLOGICAL: Cranial nerves II through XII grossly intact. Skin: No rash, warm and dry. Results CBC & Chem 7: 10/25/23 08:04 10/25/23 08:04 Labs: Abnormal Lab Results - Last 24 Hours (Table) 10/24/23 10/24/23 10/25/23 Range/Units 17:40 17:40 08:04 WBC 11.5 H (3.8-10.6) k/uL RBC 2.77 L (4.30-5.90) m/uL Hgb 8.1 L (13.0-17.5) gm/dL Hct 25.2 L (39.0-53.0) % MCHC (31.0-37.0) g/dL RDW 18.4 H (11.5-15.5) % Neutrophils # 9.4 H (1.3-7.7) k/uL Lymphocytes # 0.4 L (1.0-4.8) k/uL ESR 37 H (0-20) mm/Hr Sodium 133 L 135 L (137-145) mmol/L BUN 24 H (9-20) mg/dL Creatinine 0.49 L (0.66-1.25) mg/dL C-Reactive Protein 6.2 H (<1.0) mg/dL Total Protein 6.0 L (6.3-8.2) g/dL Albumin 3.3 L (3.5-5.0) g/dL 10/25/23 Range/Units 08:04 WBC (3.8-10.6) k/uL RBC 2.70 L (4.30-5.90) m/uL Hgb 7.7 L (13.0-17.5) gm/dL Hct 25.0 L (39.0-53.0) % MCHC 30.7 L (31.0-37.0) g/dL RDW 18.0 H (11.5-15.5) % Neutrophils # 8.1 H (1.3-7.7) k/uL Lymphocytes # 0.5 L (1.0-4.8) k/uL ESR (0-20) mm/Hr Sodium (137-145) mmol/L BUN (9-20) mg/dL Creatinine (0.66-1.25) mg/dL C-Reactive Protein (<1.0) mg/dL Total Protein (6.3-8.2) g/dL Albumin (3.5-5.0) g/dL Assessment and Plan Assessment: Left foot dry gangrene ,left foot x-ray changes noted. Recent inpatient admission, discharged on 09/25/2023 with Left great toe,wet gangrene with subcutaneouos gas, in a patient with history of severe PAD, follows with the wound care center secondary to chronic left foot wound with prior second and third toe amputation. Status post left great toe amputation. Wound cultures reported gram-negative bacilli, Citrobacter braakii. PICC line placed, receiving outpatient IV antibiotics Recent percutaneous endovascular aortic repair and balloon angioplasty of left common iliac and external iliac artery, October 05, 2023. Recent GI bleed,on dual platelet therapy OP, Status post EGD and colonoscopy .EGD reported mild antral gastritis, 6 small hiatal hernia and short segment Gonzalez's esophagus. Colonoscopy reported 3 cm superficial ulceration consistent with solitary rectal ulcer syndrome, scattered sigmoid diverticulosis and small internal hemorrhoids. Chronic anemia Chronic CHF, systolic dysfunction, EF 35%. History of right solid renal mass, measuring up to 25 mm, further follow-up outpatient Large cystic lesion in the left upper quadrant unclear with this coming from the pancreas versus the kidney versus postsurgical seroma, further follow-up outpatient Recent abdominal aortic aneurysm endovascular repair Colonic diverticulosis Ischemic cardiomyopathy Aortic stenosis Coronary disease with history of CABG Hypertension Hyperlipidemia Nicotine dependence Daily alcohol use Marijuana use Plan: Continue on current medication regimen ,monitoring and symptomatic treatment. Blood and wound cultures in progress. gentle IV fluid hydration, IV antibiotics-Zosyn, vancomycin. Close monitoring of renal function with repeat labs ordered for a.m. pain management. PPI ordered for GI prophylaxis. Infectious disease and vascular surgery consults in place, recommendations pending. The impression and plan of care has been dictated as directed. : I performed a history and examination of this patient, discussed the same with the dictator. I agree with the dictator's note ,documented as a scribe. Any additional findings or plans will be noted.
[2023-10-25] MEDS: MONTELUKAST 10 MG TAB PO SCH (20:39)
[2023-10-25] MEDS: ATORVASTATIN 80 MG TAB PO SCH (20:39)
[2023-10-25] MEDS: PIPERACILLIN-TAZOBACTAM 3.375 GM in SODIUM CHLORIDE 0.9% 100 ML IVPB SCH (21:35)
--- NOTE | 2023-10-25 21:35 | P.CONS ---
History of Present Illness - Reason for Consult Consult date: 10/25/23 Gangrene, possible osteomyelitis of the left foot Requesting physician: Naida Vigil - Chief Complaint Worsening wound to the left foot x days - History of Present Illness Patient is a 73-year-old male with a past medical history significant for hypertension hyperlipidemia heart failure coronary artery disease recently underwent percutaneous endovascular aortic repair of the abdominal aortic aneurysm and the patient also have hypertension of the left big toe and revision of the second and third toe that was completed on 09/20/2023 culture positive for anaerobic gram-negative bacilli Citrobacter and Alcaligenes faecalis patient did get a PICC line and was advised a 6-week course of IV Zosyn with the patient was recently in the outpatient setting apparently the patient noticed to have more discoloration of his left foot and the home care nurse was concerned and she referred the patient to the vascular surgeon office who subsequently directed patient to go to the ER patient denies high-grade fever or any chills he is breathing comfortably on room air patient denies having any headache no chest pain shortness of breath or cough no nausea vomiting no abdominal pain no diarrhea has been complaining of some dull aching pain to the left foot area mi ld to moderate intensity without any radiation denies any foul-smelling drainage however did have some discoloration patient on presentation to the hospital did have white count of 11.5 with a left shift creatinine was 0.69 liver isms are normal CRP was 6.2 local cultures obtained x-ray of the foot was obtained which did shows amputation changes to the left first second and third digits irregular margins of the amputation site unclear is postsurgical or infection, patient has been continued on Zosyn infectious he was consulted for further management of antibiotic repeat vancomycin has been added as well Review of Systems Positive point and negatives has been mentioned in the HPI, complete review of systems was performed and all other systems are negative Past Medical History Past Medical History: Coronary Artery Disease (CAD), Heart Failure, Hyperlipidemia, Hypertension, Vascular Disorder Additional Past Medical History / Comment(s): aortic aneusrym, herniated disc, peripheral vascular disease Last Myocardial Infarction Date:: 02/2023 History of Any Multi-Drug Resistant Organisms: None Reported Past Surgical History: Appendectomy, Coronary Bypass/CABG, Orthopedic Surgery Additional Past Surgical History / Comment(s): Right rotater cuff repair, L first and second toe removal Past Anesthesia/Blood Transfusion Reactions: No Reported Reaction Past Psychological History: No Psychological Hx Reported Smoking Status: Current some day smoker, Light tobacco smoker Past Alcohol Use History: Daily, Occasional Past Drug Use History: Marijuana - Past Family History Father Family Medical History: Coronary Artery Disease (CAD) Additional Family Medical History / Comment(s): triple bypass Mother Family Medical History: Coronary Artery Disease (CAD), Dementia Medications and Allergies Home Medications Medication Instructions Recorded Confirmed Type Montelukast [Singulair] 10 mg PO HS #30 tab 02/22/16 10/24/23 Rx lisinopriL [Zestril] 2.5 mg PO HS #30 tab 02/22/16 10/24/23 Rx Loratadine [Claritin] 10 mg PO DAILY 09/08/20 10/24/23 History Atorvastatin [Lipitor] 80 mg PO HS 09/20/23 10/24/23 History Spironolactone [Aldactone] 25 mg PO DAILY 09/20/23 10/24/23 History Acetaminophen Tab [Tylenol] 650 mg PO Q6HR PRN tab 09/25/23 10/24/23 Rx Folic Acid 1 mg PO DAILY tab 09/25/23 10/24/23 Rx Furosemide [Lasix] 40 mg PO DAILY #30 tablet 09/25/23 10/24/23 Rx Gabapentin 600 mg PO TID #9 tab 09/25/23 10/24/23 Rx Magnesium Citrate and Oxide 500 mg PO DAILY #30 cap 09/25/23 10/24/23 Rx [Magnesium] Piperacillin-Tazobactam [Zosyn] 3.375 gm IVPB Q8HR #120 each 09/25/23 10/24/23 Rx Thiamine [Vitamin B-1] 100 mg PO DAILY tab 09/25/23 10/24/23 Rx polyethylene glycoL 3350 [Miralax] 17 gm PO DAILY PRN 10/05/23 10/24/23 History HYDROcodone/APAP 5-325MG [[place] 1 tab PO BID 10/10/23 10/24/23 History 5-325] Multivitamins, Thera [Multivitamin 1 tab PO DAILY 10/10/23 10/24/23 History (formulary)] carvediloL [Coreg] 6.25 mg PO BID-W/MEALS 10/10/23 10/24/23 History Aspirin 81 mg PO DAILY 30 Days #30 tab 10/13/23 10/24/23 Rx Omeprazole [PriLOSEC] 40 mg PO AC-BID 30 Days #60 cap 10/13/23 10/24/23 Rx Omeprazole [PriLOSEC] 40 mg PO BID 30 Days #60 cap 10/13/23 10/24/23 Rx Albuterol Nebulized [Ventolin 2.5 mg INHALATION RT-QID PRN 10/24/23 10/24/23 History Nebulized] Silver Sulfadiazine [Silver 1 applic TOPICAL BID 10/24/23 10/24/23 History Sulfadiazine 1%] Allergies Allergy/AdvReac Type Severity Reaction Status Date / Time No Known Allergies Allergy Verified 10/24/23 21:48 Physical Exam Vitals: Vital Signs Temp Pulse Resp BP Pulse Ox 10/25/23 09:30 98.0 F 89 17 143/68 96 10/25/23 05:17 94 16 136/68 95 10/25/23 03:11 98.0 F 78 17 139/62 98 10/24/23 22:09 15 133/54 10/24/23 21:28 74 18 133/54 96 10/24/23 16:47 98.5 F 64 18 155/70 96 Intake and Output 10/24/23 10/25/23 10/25/23 22:59 06:59 14:59 Other: Weight 65.771 kg GENERAL DESCRIPTION: Elderly male lying in bed, no distress. No tachypnea or accessory muscle of respiration use. HEENT: Shows Pallor , no scleral icterus. Oral mucous membrane is dry. No pharyngeal erythema or thrush NECK: Trachea central, no thyromegaly. LUNGS: Unlabored breathing. Clear to auscultation anteriorly. No wheeze or cr ackle. HEART: S1, S2, regular rate and rhythm. No loud murmur ABDOMEN: Soft, no tenderness , guarding or rigidity, no organomegaly EXTREMITIES: Left foot wound with some slough tissue minimal surrounding necrosis and also have discoloration of his toe but no foul-smelling drainage SKIN: No rash, no masses palpable. NEUROLOGICAL: The patient is awake, alert, oriented x3, mood and affect normal. Results CBC & Chem 7: 10/29/23 05:36 10/29/23 05:36 Labs: Abnormal Lab Results - Last 24 Hours (Table) 10/24/23 10/24/23 10/25/23 Range/Units 17:40 17:40 08:04 WBC 11.5 H (3.8-10.6) k/uL RBC 2.77 L (4.30-5.90) m/uL Hgb 8.1 L (13.0-17.5) gm/dL Hct 25.2 L (39.0-53.0) % MCHC (31.0-37.0) g/dL RDW 18.4 H (11.5-15.5) % Neutrophils # 9.4 H (1.3-7.7) k/uL Lymphocytes # 0.4 L (1.0-4.8) k/uL Sodium 133 L 135 L (137-145) mmol/L BUN 24 H (9-20) mg/dL Creatinine 0.49 L (0.66-1.25) mg/dL C-Reactive Protein 6.2 H (<1.0) mg/dL Total Protein 6.0 L (6.3-8.2) g/dL Albumin 3.3 L (3.5-5.0) g/dL 10/25/23 Range/Units 08:04 WBC (3.8-10.6) k/uL RBC 2.70 L (4.30-5.90) m/uL Hgb 7.7 L (13.0-17.5) gm/dL Hct 25.0 L (39.0-53.0) % MCHC 30.7 L (31.0-37.0) g/dL RDW 18.0 H (11.5-15.5) % Neutrophils # 8.1 H (1.3-7.7) k/uL Lymphocytes # 0.5 L (1.0-4.8) k/uL Sodium (137-145) mmol/L BUN (9-20) mg/dL Creatinine (0.66-1.25) mg/dL C-Reactive Protein (<1.0) mg/dL Total Protein (6.3-8.2) g/dL Albumin (3.5-5.0) g/dL Assessment and Plan (1) Gangrene of left foot Status: Acute Code(s): I96 - GANGRENE, NOT ELSEWHERE CLASSIFIED SNOMED Code(s): 08274001726702969 (2) Wound of left foot Status: Acute Code(s): S91.302A - UNSPECIFIED OPEN WOUND, LEFT FOOT, INITIAL ENCOUNTER SNOMED Code(s): 95851456008928477 Plan: 1patient with a recent admission to hospital with left big toe gangrene and this patient was status post amputation and also have extensive wound from previous amputation of the left second and third toe now being admitted to the hospital per advice of his home care nurse because of worsening necrotic changes possible ischemic changes underlying worsening or second infection less likely but not entirely excluded 2-await vascular surgery evaluation for decision regarding limb debridement versus revascularization 3-superficial culture obtained results will be followed 4-for now continue the vancomycin and Zosyn while waiting for the culture to finalize however watch his kidney function closely We will follow on clinical condition and cultures to further adjust medication if needed Thank you for this consultation we will follow the patient along with you Dictation was produced using [employer] dictation software. please excuse any grammatical, word or spelling errors. Time with Patient: Greater than 30
--- NOTE | 2023-10-26 10:16 | P.PN ---
Subjective Progress Note Date: 10/26/23 Principal diagnosis: Peripheral arterial disease, dry gangrene Patient is seen and examined today as a follow-up. He remains on his IV antibiotics. He is afebrile. Continues to have chronic pain down the left lower extremity mostly in the foot. Objective - Vital Signs Vital signs: Vital Signs Temp 97.8 F 10/26/23 07:30 Pulse 78 10/26/23 07:45 Resp 18 10/26/23 07:45 BP 154/71 10/26/23 07:30 Pulse Ox 95 10/26/23 00:50 FiO2 Intake & Output 10/25/23 10/26/23 10/26/23 18:59 06:59 18:59 Output Total 1100 Balance -1100 Weight 65.771 kg Output: Urine 1100 Other: Voiding Method Urinal Urinal # Voids 2 # Bowel Movements 1 - Exam General appearance: The patient is alert, oriented, appears in no acute distress. HET: Head is normocephalic and atraumatic. Pupils are equal and reactive. Neck: Supple. Abdomen: Soft, nondistended. Extremities: Left lower extremity With some mild tenderness to palpation, bailer tenders supervisor to palpation dressing clean dry and intact. Neurological: No focal deficits. Strength and sensation are grossly intact. - Labs CBC & Chem 7: 10/25/23 08:04 10/25/23 08:04 Labs: Abnormal Lab Results - Last 24 Hours (Table) 10/24/23 Range/Units 17:40 ESR 37 H (0-20) mm/Hr Microbiology - Last 24 Hours (Table) 10/24/23 18:15 Blood Culture - Preliminary Blood 10/24/23 18:00 Blood Culture - Preliminary Blood 10/24/23 22:02 Gram Stain - Preliminary Foot - Left Assessment and Plan Assessment: 1. History of severe peripheral arterial disease status post amputation of toes 1 through 3. Dry gangrene left foot gangrene 2. History of abdominal aortic aneurysm status post percutaneous endovascular aortic repair and balloon angioplasty left common iliac, external iliac artery 3. Anemia 4. Recent GI bleed requiring blood transfusion 5. Coronary artery disease with previous CABG 6. Heart failure with reduced EF 7. Ischemic cardiomyopathy, EF 35 to 40% Plan: 1. Continue symptomatic and supportive care 2. Continue medical management 3. Continue antibiotics 4. Plan for left lower extremity angiogram on Carlos A, further recommendations forthcoming based on findings Thank you for this consultation, we will continue to follow. The impression and plan of care has been dictated as directed. Dr. Padilla I performed a history and examination of this patient, discussed the same with the dictator. I agree with the dictator's note ,documented as a scribe. Any additional findings or plans will be noted.
[2023-10-26] MEDS: VANCOMYCIN TROUGH DUE 1 EACH MISC MISCELLANE ONE (10:24)
[2023-10-26 11:29] VITALS: BMI 22.0
--- NOTE | 2023-10-26 12:50 | P.PN ---
Subjective Progress Note Date: 10/26/23 This is a 73-year-old gentleman with past medical history significant for PAD, CAD, CABG, GI bleed, anemia-hemoglobin as low as 4.9, herniated disc, hypertension, hyperlipidemia, nicotine dependence, daily alcohol use, recent inpatient admission, discharged on 09/25/2023 with Left great toe,wet gangrene with subcutaneous gas, follows with the wound care center secondary to chronic left foot wound with prior second and third toe amputation, underwent left great toe amputation. Wound cultures grew gram-negative bacilli, Citrobacter braakii. PICC line placed, receiving IV antibiotics, Zosyn, outpatient. Patient also had a recent percutaneous endovascular aortic repair and balloon angioplasty of left common iliac and external iliac artery with Dr. Padilla on October 05, 2023. Patient readmitted to the hospital for acute GI bleed, hemoglobin 5.9 on admission, underwent EGD and colonoscopy on 10/12/2023 reported mild antral gastritis, small hiatal hernia and short segment Gonzalez's esophagus ,3 cm superficial ulceration consistent with solitary rectal ulcer syndrome, scattered sigmoid diverticulosis and small internal hemorrhoids. Biopsies reported nondiagnostic for malignancy. Reports Sunday, visiting nurse changed his bandage, concerned over the appearance, recommended him to call his surgeon's office. Patient called Dr. Dalal's office, but physician was not in and the office recommended he proceed to the ER for further evaluation. Reports nondraining, constant pain unrelieved by current pain med regimen. Has an appointment set up with pain specialist, on November 08. Denies any further trauma/falls denies chest pain, palpitations or shortness of breath. Denies any fevers chills or sweats. Denies any nausea vomiting or diarrhea. Denies any abdominal pain.WBC 10.4 hemoglobin 7.7 platelets 419 sodium 135 potassium 4.0 bicarb 26 BUN 16 creatinine 0.49. 10/26/2023 maintained on IV antibiotics, afebrile. ESR 56, CRP 4.20.blood and foot cultures pending. slept better, complains of ongoing chronic pain, greatest in left foot. Scheduled for angiogram on Sunday with vascular surgery. Objective - Vital Signs Vital signs: Vital Signs Temp 97.8 F 10/26/23 07:30 Pulse 78 10/26/23 07:45 Resp 18 10/26/23 07:45 BP 154/71 10/26/23 07:30 Pulse Ox 95 10/26/23 00:50 FiO2 Intake & Output 10/25/23 10/26/23 10/26/23 18:59 06:59 18:59 Output Total 1100 Balance -1100 Weight 65.771 kg 65.771 kg Output: Urine 1100 Other: Voiding Method Urinal Urinal # Voids 2 # Bowel Movements 1 - Exam - Exam PHYSICAL EXAMINATION: VS: As above GENERAL: Alert and oriented 3, sitting up at side of bed, no acute distress HEENT: Normocephalic, atraumatic. Pupils equal and reactive. Sclera anicteric NECK: Supple, no JVD CHEST EXAMINATION: Unlabored, equal air entry, essentially clear, bilateral bases diminished CARDIAC: Normal S1, S2 with no gallops. Systolic murmur. ABDOMEN: Soft. Nondistended, nontender, Bowel sounds normal. EXTREMITIES: Left foot specialist with dressing clean dry and intact. NEUROLOGICAL: Cranial nerves II through XII grossly intact. Skin: No rash, warm and dry. - Labs CBC & Chem 7: 10/25/23 08:04 10/25/23 08:04 Labs: Abnormal Lab Results - Last 24 Hours (Table) 10/26/23 10/26/23 Range/Units 07:25 07:25 ESR 56 H (0-20) mm/Hr C-Reactive Protein 4.20 H (0.00-0.80) mg/dL Microbiology - Last 24 Hours (Table) 10/24/23 18:15 Blood Culture - Preliminary Blood 10/24/23 18:00 Blood Culture - Preliminary Blood 10/24/23 22:02 Gram Stain - Preliminary Foot - Left Assessment and Plan Assessment: Left foot dry gangrene ,left foot x-ray changes noted. Recent inpatient admission, discharged on 09/25/2023 with Left great toe,wet gangrene with subcutaneouos gas, in a patient with history of severe PAD, follows with the wound care center secondary to chronic left foot wound with prior second and third toe amputation. Status post left great toe amputation. Wound cultures reported gram-negative bacilli, Citrobacter braakii. PICC line placed, receiving outpatient IV antibiotics Recent percutaneous endovascular aortic repair and balloon angioplasty of left common iliac and external iliac artery, October 05, 2023. Recent GI bleed,on dual platelet therapy OP, Status post EGD and colonoscopy .EGD reported mild antral gastritis, 6 small hiatal hernia and short segment Bar rett's esophagus. Colonoscopy reported 3 cm superficial ulceration consistent with solitary rectal ulcer syndrome, scattered sigmoid diverticulosis and small internal hemorrhoids. Chronic anemia Chronic CHF, systolic dysfunction, EF 35%. History of right solid renal mass, measuring up to 25 mm, further follow-up outpatient Large cystic lesion in the left upper quadrant unclear with this coming from the pancreas versus the kidney versus postsurgical seroma, further follow-up outpatient Recent abdominal aortic aneurysm endovascular repair Colonic diverticulosis Ischemic cardiomyopathy Aortic stenosis Coronary disease with history of CABG Hypertension Hyperlipidemia Nicotine dependence Daily alcohol use Marijuana use Plan: Continue on current medication regimen ,monitoring and symptomatic treatment. Maintain IV antibiotics, gentle IV fluid hydration. BMP pending .blood and wound cultures in progress.Close monitoring of renal function with repeat labs ordered for a.m. pain management. Scheduled for angiogram on Sunday with vascular surgery. The impression and plan of care has been dictated as directed. : I performed a history and examination of this patient, discussed the same with the dictator. I agree with the dictator's note ,documented as a scribe. Any additional findings or plans will be noted.
[2023-10-26 13:24] LABS: African American GFR (CKD) >90 (>60 ml/min/1.73 sqM); Anion Gap 5 mmol/L; Blood Urea Nitrogen 16 mg/dL (9-20); Calcium 9.2 mg/dL (8.4-10.2); Carbon Dioxide 31 mmol/L (22-30); Chloride 97 mmol/L (98-107); Glucose 106 mg/dL (74-99); Non-African American GFR(CKD) >90 (>60 ml/min/1.73 sqM); Sodium 133 mmol/L (137-145)
--- NOTE | 2023-10-26 15:04 | P.PN ---
Subjective Progress Note Date: 10/26/23 Principal diagnosis: Reason for follow-up is left foot wound and osteomyelitis Patient is a 73-year-old male with a past medical history significant for hypertension hyperlipidemia heart failure coronary artery disease recently underwent percutaneous endovascular aortic repair of the abdominal aortic aneurysm and the patient also have hypertension of the left big toe and revision of the second and third toe that was completed on 09/20/2023 culture positive for anaerobic gram-negative bacilli Citrobacter and Alcaligenes faecalis, patient was getting outpatient Zosyn readmitted to hospital concerning for worsening discoloration and ischemia. On today's evaluation that is 10/26/2023, the patient continues to be afebrile, the patient is on room air and breathing comfortably, the Pt denies having any chest pain or cough, the patient denies having any abdominal pain no vomiting or any diarrhea has been reported by the nursing staff, pain to the left foot is about 5-10 and no foul-smelling drainage. The patient white count is 10.4, creatinine 0.77 Vanco trough was 24 point 2 repeat cultures pending Objective - Vital Signs Vital signs: Vital Signs Temp 98.1 F 10/26/23 13:41 Pulse 85 10/26/23 13:41 Resp 16 10/26/23 13:41 BP 116/65 10/26/23 13:41 Pulse Ox 95 10/26/23 13:41 FiO2 Intake & Output 10/25/23 10/26/23 10/26/23 18:59 06:59 18:59 Output Total 1100 Balance -1100 Weight 65.771 kg 65.771 kg Output: Urine 1100 Other: Voiding Method Urinal Urinal # Voids 2 # Bowel Movements 1 - Exam GENERAL DESCRIPTION: An elderly male lying in bed in no distress RESPIRATORY SYSTEM: Unlabored breathing , decreased breath sounds at bases HEART: S1 S2 regular rate and rhythm , ABDOMEN: Soft , no tenderness EXTREMITIES: Left foot is currently dressed did have some discoloration of the left fourth toe no drainage - Labs CBC & Chem 7: 10/25/23 08:04 10/26/23 07:25 Labs: Abnormal Lab Results - Last 24 Hours (Table) 10/26/23 10/26/23 10/26/23 Range/Units 07:25 07:25 07:25 ESR 56 H (0-20) mm/Hr Sodium 133 L (137-145) mmol/L Chloride 97 L (98-107) mmol/L Carbon Dioxide 31 H (22-30) mmol/L Glucose 106 H (74-99) mg/dL C-Reactive Protein 4.20 H (0.00-0.80) mg/dL Microbiology - Last 24 Hours (Table) 10/24/23 18:15 Blood Culture - Preliminary Blood 10/24/23 18:00 Blood Culture - Preliminary Blood 10/24/23 22:02 Gram Stain - Preliminary Foot - Left Assessment and Plan (1) Gangrene of left foot Current Visit: Yes Status: Acute Code(s): I96 - GANGRENE, NOT ELSEWHERE CLASSIFIED SNOMED Code(s): 04369595613057180 (2) Wound of left foot Current Visit: No Status: Acute Code(s): S91.302A - UNSPECIFIED OPEN WOUND, LEFT FOOT, INITIAL ENCOUNTER SNOMED Code(s): 61072494093228035 Plan: 1patient with a recent admission to hospital with left big toe gangrene and this patient was status post amputation and also have extensive wound from previous amputation of the left second and third toe now being admitted to the hospital per advice of his home care nurse because of worsening necrotic changes possible ischemic changes underlying worsening or second infection less likely but not entirely excluded 2- vascular surgery is currently evaluated the patient and possible procedure on Sunday 3-superficial culture obtained results will be followed 4-we will keep the patient on Zosyn with a high risk of nephrotoxicity with the vancomycin will be discontinued will add daptomycin while waiting for the culture to finalize Dictation was produced using [employer] dictation software. please excuse any grammatical, word or spelling errors. Time with Patient: Less than 30
[2023-10-26] MEDS: polyethylene glycoL 3350 17 GM POWD.PACK PO SCH (18:37)
[2023-10-26] MEDS ORDERED: VANCOMYCIN 1,250 MG in SODIUM CHLORIDE 0.9% 250 ML IVPB SCH (21:00)
[2023-10-27] MEDS: MAGNESIUM HYDROXIDE 2,400 MG/30 ML CUP PO PRN (09:43)
[2023-10-27 10:31] LABS: HCT 26.6 % (39.6-50.0); HGB 8.2 g/dL (13.0-17.0); MCH 27.9 pg (27.0-32.0); MCHC 30.8 g/dL (32.0-37.0); MCV 90.5 FL (80.0-97.0); Mean Platelet Volume 8.8 FL (9.5-12.2); NRBC Per 100 WBC 0 X 10*3/uL (0.00-0.01); Platelet Count 436 X 10*3/uL (140-440); RBC 2.94 X 10*6/uL (4.40-5.60); RDW 18.2 % (11.5-14.5); WBC 9.36 X 10*3/uL (4.50-10.00)
[2023-10-27 10:44] LABS: BUN/Creat Ratio 21.88 Ratio (12.00-20.00); Blood Urea Nitrogen 17.5 mg/dL (9.0-27.0); Calcium 9.7 mg/dL (8.7-10.3); Carbon Dioxide 29.3 mmol/L (21.6-31.8); Chloride 91 mmol/L (96-109); Glucose 83 mg/dL (70-110); Potassium 4.3 mmol/L (3.5-5.5); Sodium 135 mmol/L (135-145)
--- NOTE | 2023-10-27 11:07 | P.PN ---
Subjective Progress Note Date: 10/27/23 Patient seen and examined. No complaints or concerns.States he has not had a bowel movement since being in the hospital but otherwise no issues. Continuing with chronic pain in his foot Objective - Vital Signs Vital signs: Vital Signs Temp 97.9 F 10/27/23 07:45 Pulse 76 10/27/23 07:45 Resp 20 10/27/23 07:45 BP 122/73 10/27/23 07:45 Pulse Ox 92 L 10/27/23 07:45 FiO2 Intake & Output 10/26/23 10/27/23 10/27/23 18:59 06:59 18:59 Intake Total 1100 200 Output Total 1000 Balance 100 200 Weight 65.771 kg Intake: Intake, IV Titration 350 200 Amount Piperacillin-Tazobactam 3 100 200 .375 gm In Sodium Chloride 0.9% 100 ml @ 25 mls/hr IVPB Q8H [facility] Rx#: [id number] Vancomycin 1,250 mg In 250 Sodium Chloride 0.9% 250 ml @ 125 mls/hr IVPB Q8H [facility] Rx#:[id number] Oral 750 Output: Urine 1000 Other: Voiding Method Urinal Bedside Commode Urinal # Voids 3 3 - Exam General appearance: The patient is alert, oriented, appears in no acute distress. HET: Head is normocephalic and atraumatic. Pupils are equal and reactive. Neck: Supple. Abdomen: Soft, nondistended. Extremities: Left lower extremity With some mild tenderness to palpation, wharf tender helper to palpation dressing clean dry and intact. Neurological: No focal deficits. Strength and sensation are grossly intact. - Labs CBC & Chem 7: 10/27/23 06:06 10/27/23 06:06 Labs: Abnormal Lab Results - Last 24 Hours (Table) 10/26/23 10/26/23 10/26/23 Range/Units 07:25 07:25 07:25 RBC (4.40-5.60) X 10*6/uL Hgb (13.0-17.0) g/dL Hct (39.6-50.0) % MCHC (32.0-37.0) g/dL RDW (11.5-14.5) % MPV (9.5-12.2) FL ESR 56 H (0-20) mm/Hr Sodium 133 L (137-145) mmol/L Chloride 97 L (98-107) mmol/L Carbon Dioxide 31 H (22-30) mmol/L Anion Gap (4.00-12.00) mmol/L BUN/Creatinine Ratio (12.00-20.00) Ratio Glucose 106 H (74-99) mg/dL C-Reactive Protein 4.20 H (0.00-0.80) mg/dL 10/27/23 10/27/23 Range/Units 06:06 06:06 RBC 2.94 L (4.40-5.60) X 10*6/uL Hgb 8.2 L (13.0-17.0) g/dL Hct 26.6 L (39.6-50.0) % MCHC 30.8 L (32.0-37.0) g/dL RDW 18.2 H (11.5-14.5) % MPV 8.8 L (9.5-12.2) FL ESR (0-20) mm/Hr Sodium (137-145) mmol/L Chloride 91 L (98-107) mmol/L Carbon Dioxide (22-30) mmol/L Anion Gap 14.70 H (4.00-12.00) mmol/L BUN/Creatinine Ratio 21.88 H (12.00-20.00) Ratio Glucose (74-99) mg/dL C-Reactive Protein (0.00-0.80) mg/dL Microbiology - Last 24 Hours (Table) 10/24/23 18:15 Blood Culture - Preliminary Blood 10/24/23 18:00 Blood Culture - Preliminary Blood Assessment and Plan Assessment: 1. Dry gangrene left foot gangrene 2. Severe peripheral arterial disease status post amputation of toes 1 through 3. 2. History of abdominal aortic aneurysm status post percutaneous endovascular aortic repair and balloon angioplasty left common iliac, external iliac artery 3. Anemia 4. Recent GI bleed requiring blood transfusion 5. Coronary artery disease with previous CABG 6. Heart failure with reduced EF 7. Ischemic cardiomyopathy, EF 35 to 40% Plan: Continue with supportive care. Continue medical management and IV antibiotics. Plan for angiogram with potential revascularization Sunday.
--- NOTE | 2023-10-27 12:10 | P.PN ---
Subjective Progress Note Date: 10/27/23 Principal diagnosis: Reason for follow-up is left foot wound and osteomyelitis Patient is a 73-year-old male with a past medical history significant for hypertension hyperlipidemia heart failure coronary artery disease recently underwent percutaneous endovascular aortic repair of the abdominal aortic aneurysm and the patient also have hypertension of the left big toe and revision of the second and third toe that was completed on 09/20/2023 culture positive for anaerobic gram-negative bacilli Citrobacter and Alcaligenes faecalis, patient was getting outpatient Zosyn readmitted to hospital concerning for worsening discoloration and ischemia. On today's evaluation that is10/27/2023, Patient is afebrile patient is currently on room air and denies having any shortness of breath, the patient denies any chest pain or cough, the patient denies any nausea vomiting did not have any abdominal pain and no diarrhea has been complaining of pain to the left foot wound some relief with the pain medication. White count is 9.36, creatinine 0.8 cultures growing gram-negative bacilli Objective - Vital Signs Vital signs: Vital Signs Temp 97.9 F 10/27/23 07:45 Pulse 76 10/27/23 07:45 Resp 20 10/27/23 07:45 BP 122/73 10/27/23 07:45 Pulse Ox 92 L 10/27/23 07:45 FiO2 Intake & Output 10/26/23 10/27/23 10/27/23 18:59 06:59 18:59 Intake Total 1100 200 Output Total 1000 Balance 100 200 Weight 65.771 kg Intake: Intake, IV Titration 350 200 Amount Piperacillin-Tazobactam 3 100 200 .375 gm In Sodium Chloride 0.9% 100 ml @ 25 mls/hr IVPB Q8H [facility] Rx#: [id number] Vancomycin 1,250 mg In 250 Sodium Chloride 0.9% 250 ml @ 125 mls/hr IVPB Q8H [facility] Rx#:[id number] Oral 750 Output: Urine 1000 Other: Voiding Method Urinal Bedside Commode Urinal # Voids 3 3 - Exam GENERAL DESCRIPTION: An elderly male lying in bed in no distress RESPIRATORY SYSTEM: Unlabored breathing , decreased breath sounds at bases HEART: S1 S2 regular rate and rhythm , ABDOMEN: Soft , no tenderness EXTREMITIES: Left foot is currently dressed did have some discoloration of the left fourth toe no drainage - Labs CBC & Chem 7: 10/27/23 06:06 10/27/23 06:06 Labs: Abnormal Lab Results - Last 24 Hours (Table) 10/26/23 10/26/23 10/26/23 Range/Units 07:25 07:25 07:25 ESR 56 H (0-20) mm/Hr Sodium 133 L (137-145) mmol/L Chloride 97 L (98-107) mmol/L Carbon Dioxide 31 H (22-30) mmol/L Glucose 106 H (74-99) mg/dL C-Reactive Protein 4.20 H (0.00-0.80) mg/dL Microbiology - Last 24 Hours (Table) 10/24/23 18:15 Blood Culture - Preliminary Blood 10/24/23 18:00 Blood Culture - Preliminary Blood Assessment and Plan (1) Gangrene of left foot Current Visit: Yes Status: Acute Code(s): I96 - GANGRENE, NOT ELSEWHERE CLASSIFIED SNOMED Code(s): 50293563081496765 (2) Wound of left foot Current Visit: No Status: Acute Code(s): S91.302A - UNSPECIFIED OPEN WOUND, LEFT FOOT, INITIAL ENCOUNTER SNOMED Code(s): 86911122804541896 Plan: 1patient with a recent admission to hospital with left big toe gangrene and this patient was status post amputation and also have extensive wound from prev ious amputation of the left second and third toe now being admitted to the hospital per advice of his home care nurse because of worsening necrotic changes possible ischemic changes underlying worsening or second infection less likely but not entirely excluded 2- vascular surgery is currently waiting for possible vascular procedure on Sunday 3-superficial culture obtained and results are currently pending 4-we will keep the patient on Zosyn and daptomycin while waiting for the culture to finalize Dictation was produced using [employer] dictation software. please excuse any grammatical, word or spelling errors. Time with Patient: Less than 30
--- NOTE | 2023-10-27 20:28 | P.PN ---
Subjective Progress Note Date: 10/27/23 73-year-old gentleman with past medical history significant for PAD, CAD, CABG, GI bleed, anemia-hemoglobin as low as 4.9, herniated disc, hypertension, hyperlipidemia, nicotine dependence, daily alcohol use, recent inpatient admission, discharged on 09/25/2023 with Left great toe,wet gangrene with subcut aneous gas, follows with the wound care center secondary to chronic left foot wound with prior second and third toe amputation, underwent left great toe amputation. Wound cultures grew gram-negative bacilli, Citrobacter braakii. PICC line placed, receiving IV antibiotics, Zosyn, outpatient. Patient also had a recent percutaneous endovascular aortic repair and balloon angioplasty of left common iliac and external iliac artery with Dr. Padilla on October 05, 2023. Patient readmitted to the hospital for acute GI bleed, hemoglobin 5.9 on admission, underwent EGD and colonoscopy on 10/12/2023 reported mild antral gastritis, small hiatal hernia and short segment Gonzalez's esophagus ,3 cm superficial ulceration consistent with solitary rectal ulcer syndrome, scattered sigmoid diverticulosis and small internal hemorrhoids. Biopsies reported nondiagnostic for malignancy. Reports Sunday, visiting nurse changed his bandage, concerned over the appearance, recommended him to call his surgeon's office. Patient called Dr. Dalal's office, but physician was not in and the office recommended he proceed to the ER for further evaluation. Reports nondraining, constant pain unrelieved by current pain med regimen. Has an appointment set up with pain specialist, on November 08. Denies any further trauma/falls denies chest pain, palpitations or shortness of breath. Denies any fevers chills or sweats. Denies any nausea vomiting or diarrhea. Denies any abdominal pain.WBC 10.4 hemoglobin 7.7 platelets 419 sodium 135 potassium 4.0 bicarb 26 BUN 16 creatinine 0.49 Objective - Vital Signs Vital signs: Vital Signs Temp 97.9 F 10/27/23 07:45 Pulse 76 10/27/23 07:45 Resp 20 10/27/23 07:45 BP 122/73 10/27/23 07:45 Pulse Ox 92 L 10/27/23 07:45 FiO2 Intake & Output 10/26/23 10/27/23 10/27/23 18:59 06:59 18:59 Intake Total 1100 200 Output Total 1000 Balance 100 200 Weight 65.771 kg Intake: Intake, IV Titration 350 200 Amount Piperacillin-Tazobactam 3 100 200 .375 gm In Sodium Chloride 0.9% 100 ml @ 25 mls/hr IVPB Q8H [facility] Rx#: [id number] Vancomycin 1,250 mg In 250 Sodium Chloride 0.9% 250 ml @ 125 mls/hr IVPB Q8H [facility] Rx#:[id number] Oral 750 Output: Urine 1000 Other: Voiding Method Urinal Bedside Commode Urinal # Voids 3 3 - Exam GENERAL: Alert and oriented 3, sitting up at side of bed, no acute distress HEENT: Normocephalic, atraumatic. Pupils equal and reactive. Sclera anicteric NECK: Supple, no JVD CHEST EXAMINATION: Unlabored, equal air entry, essentially clear, bilateral bases diminished CARDIAC: Normal S1, S2 with no gallops. Systolic murmur. ABDOMEN: Soft. Nondistended, nontender, Bowel sounds normal. No guarding, no rigidity. EXTREMITIES: Left foot dressing clean dry and intact. NEUROLOGICAL: Cranial nerves II through XII grossly intact. Skin: No rash, warm and dry. - Labs CBC & Chem 7: 10/27/23 06:06 10/27/23 06:06 Labs: Abnormal Lab Results - Last 24 Hours (Table) 10/26/23 10/26/23 10/26/23 Range/Units 07:25 07:25 07:25 RBC (4.40-5.60) X 10*6/uL Hgb (13.0-17.0) g/dL Hct (39.6-50.0) % MCHC (32.0-37.0) g/dL RDW (11.5-14.5) % MPV (9.5-12.2) FL ESR 56 H (0-20) mm/Hr Sodium 133 L (137-145) mmol/L Chloride 97 L (98-107) mmol/L Carbon Dioxide 31 H (22-30) mmol/L Anion Gap (4.00-12.00) mmol/L BUN/Creatinine Ratio (12.00-20.00) Ratio Glucose 106 H (74-99) mg/dL C-Reactive Protein 4.20 H (0.00-0.80) mg/dL 10/27/23 10/27/23 Range/Units 06:06 06:06 RBC 2.94 L (4.40-5.60) X 10*6/uL Hgb 8.2 L (13.0-17.0) g/dL Hct 26.6 L (39.6-50.0) % MCHC 30.8 L (32.0-37.0) g/dL RDW 18.2 H (11.5-14.5) % MPV 8.8 L (9.5-12.2) FL ESR (0-20) mm/Hr Sodium (137-145) mmol/L Chloride 91 L (98-107) mmol/L Carbon Dioxide (22-30) mmol/L Anion Gap 14.70 H (4.00-12.00) mmol/L BUN/Creatinine Ratio 21.88 H (12.00-20.00) Ratio Glucose (74-99) mg/dL C-Reactive Protein (0.00-0.80) mg/dL Microbiology - Last 24 Hours (Table) 10/24/23 18:15 Blood Culture - Preliminary Blood 10/24/23 18:00 Blood Culture - Preliminary Blood Assessment and Plan Assessment: Left foot dry gangrene ,left foot x-ray changes noted. Recent inpatient admission, discharged on 09/25/2023 with Left great toe,wet gangrene with subcutaneouos gas, in a patient with history of severe PAD, fo llows with the wound care center secondary to chronic left foot wound with prior second and third toe amputation. Status post left great toe amputation. Wound cultures reported gram-negative bacilli, Citrobacter braakii. PICC line placed, receiving outpatient IV antibiotics Recent percutaneous endovascular aortic repair and balloon angioplasty of left common iliac and external iliac artery, October 05, 2023. Recent GI bleed,on dual platelet therapy OP, Status post EGD and colonoscopy .EGD reported mild antral gastritis, 6 small hiatal hernia and short segment Gonzalez's esophagus. Colonoscopy reported 3 cm superficial ulceration consistent with solitary rectal ulcer syndrome, scattered sigmoid diverticulosis and small internal hemorrhoids. Chronic anemia Chronic CHF, systolic dysfunction, EF 35%. History of right solid renal mass, measuring up to 25 mm, further follow-up outpatient Large cystic lesion in the left upper quadrant unclear with this coming from the pancreas versus the kidney versus postsurgical seroma, further follow-up outpatient Recent abdominal aortic aneurysm endovascular repair Colonic diverticulosis Ischemic cardiomyopathy Aortic stenosis Coronary disease with history of CABG Hypertension Hyperlipidemia Nicotine dependence Daily alcohol use Marijuana use Plan: Continue on current medication regimen ,monitoring and symptomatic treatment. Blood and wound cultures in progress. gentle IV fluid hydration, IV antibiotics-Zosyn, vancomycin. Close monitoring of renal function with repeat labs ordered for a.m. pain management. PPI ordered for GI prophylaxis. Infectious disease and vascular surgery consults in place, recommendations pending.
[2023-10-28 10:04] LABS: HCT 26.1 % (39.6-50.0); HGB 8.2 g/dL (13.0-17.0); MCH 28.1 pg (27.0-32.0); MCHC 31.4 g/dL (32.0-37.0); MCV 89.4 FL (80.0-97.0); Mean Platelet Volume 8.9 FL (9.5-12.2); NRBC Per 100 WBC 0 X 10*3/uL (0.00-0.01); Platelet Count 382 X 10*3/uL (140-440); RBC 2.92 X 10*6/uL (4.40-5.60); RDW 18.2 % (11.5-14.5); WBC 8.65 X 10*3/uL (4.50-10.00)
[2023-10-28 10:07] LABS: BUN/Creat Ratio 23.78 Ratio (12.00-20.00); Blood Urea Nitrogen 21.4 mg/dL (9.0-27.0); Calcium 9.4 mg/dL (8.7-10.3); Carbon Dioxide 26.4 mmol/L (21.6-31.8); Chloride 93 mmol/L (96-109); Glucose 85 mg/dL (70-110); Potassium 4.2 mmol/L (3.5-5.5); Sodium 131 mmol/L (135-145)
--- NOTE | 2023-10-28 22:44 | P.PN ---
Subjective Progress Note Date: 10/28/23 Principal diagnosis: Reason for follow-up is left foot wound and osteomyelitis Patient is a 73-year-old male with a past medical history significant for hypertension hyperlipidemia heart failure coronary artery disease recently underwent percutaneous endovascular aortic repair of the abdominal aortic aneurysm and the patient also have hypertension of the left big toe and revision of the second and third toe that was completed on 09/20/2023 culture positive for anaerobic gram-negative bacilli Citrobacter and Alcaligenes faecalis, patient was getting outpatient Zosyn readmitted to hospital concerning for worsening discoloration and ischemia. On today's evaluation that is 10/28/2023,the patient denies any fever or any chills, patient is breathing comfortably on room air, the patient denies chest pain shortness of breath and no significant cough, patient denies abdominal pain, no nausea vomiting or diarrhea. Patient describing pain to the left foot to be about 5-10 and some relief with the pain medication. Patient white count is 8.65 creatinine 0.9 cultures growing Citrobacter which is sensitive to Zosyn other gram-negative ID is pending Objective - Vital Signs Vital signs: Vital Signs Temp 97.5 F L 10/28/23 08:17 Pulse 84 10/28/23 08:17 Resp 20 10/28/23 08:17 BP 113/67 10/28/23 08:17 Pulse Ox 97 10/28/23 08:17 FiO2 Intake & Output 10/27/23 10/28/23 10/28/23 18:59 06:59 18:59 Other: Voiding Method Bedside Commode Urinal # Voids 5 - Exam GENERAL DESCRIPTION: An elderly male lying in bed in no distress RESPIRATORY SYSTEM: Unlabored breathing , decreased breath sounds at bases HEART: S1 S2 regular rate and rhythm , ABDOMEN: Soft , no tenderness EXTREMITIES: Left foot is currently dressed did have some discoloration of the left fourth toe no drainage - Labs CBC & Chem 7: 10/28/23 06:11 10/28/23 06:11 Labs: Abnormal Lab Results - Last 24 Hours (Table) 10/28/23 10/28/23 Range/Units 06:11 06:11 RBC 2.92 L (4.40-5.60) X 10*6/uL Hgb 8.2 L (13.0-17.0) g/dL Hct 26.1 L (39.6-50.0) % MCHC 31.4 L (32.0-37.0) g/dL RDW 18.2 H (11.5-14.5) % MPV 8.9 L (9.5-12.2) FL Sodium 131 L (135-145) mmol/L Chloride 93 L (96-109) mmol/L BUN/Creatinine Ratio 23.78 H (12.00-20.00) Ratio Microbiology - Last 24 Hours (Table) 10/24/23 18:15 Blood Culture - Preliminary Blood 10/24/23 18:00 Blood Culture - Preliminary Blood 10/24/23 22:02 Anaerobic Culture - Preliminary Foot - Left 10/24/23 22:02 Gram Stain - Preliminary Foot - Left Wound Culture - Preliminary Gram Neg Bacilli Gram Neg Bacilli#2 Assessment and Plan (1) Gangrene of left foot Current Visit: Yes Status: Acute Code(s): I96 - GANGRENE, NOT ELSEWHERE CLASSIFIED SNOMED Code(s): 29445068307523864 (2) Wound of left foot Current Visit: No Status: Acute Code(s): S91.302A - UNSPECIFIED OPEN WOUND, LEFT FOOT, INITIAL ENCOUNTER SNOMED Code(s): 52365876201917757 Plan: 1patient with a recent admission to hospital with left big toe gangrene and this patient was status post amputation and also have extensive wound from previous amputation of the left second and third toe now being admitted to the hospital per advice of his home care nurse because of worsening necrotic changes possible ischemic changes underlying worsening or second infection less likely but not entirely excluded 2- vascular surgery is currently waiting for angiogram and possible intervention tomorrow 3-superficial culture obtained and results are currently growing gram-negative 4-we will keep the patient on Zosyn if no gram-positive on daptomycin will be discontinued Dictation was produced using [employer] dictation software. please excuse any grammatical, word or spelling errors. Time with Patient: Less than 30
[2023-10-29 06:11] LABS: Anisocytosis Slight; HCT 27.3 % (39.0-53.0); HGB 8.6 gm/dL (13.0-17.5); Hypochromasia Moderate; MCH 28.4 pg (25.0-35.0); MCHC 31.6 g/dL (31.0-37.0); MCV 89.9 fL (80.0-100.0); Mean Platelet Volume 7.5; Platelet Count 404 k/uL (150-450); RBC 3.04 m/uL (4.30-5.90); RDW 17.2 % (11.5-15.5); WBC 9.6 k/uL (3.8-10.6)
--- NOTE | 2023-10-29 11:21 | P.PN ---
Subjective Progress Note Date: 10/29/23 This is a 73-year-old gentleman with past medical history significant for PAD, CAD, CABG, GI bleed, anemia-hemoglobin as low as 4.9, herniated disc, hypertension, hyperlipidemia, nicotine dependence, daily alcohol use, recent inpatient admission, discharged on 09/25/2023 with Left great toe,wet gangrene with subcutaneous gas, follows with the wound care center secondary to chronic left foot wound with prior second and third toe amputation, underwent left great toe amputation. Wound cultures grew gram-negative bacilli, Citrobacter braakii. PICC line placed, receiving IV antibiotics, Zosyn, outpatient. Patient also had a recent percutaneous endovascular aortic repair and balloon angioplasty of left common iliac and external iliac artery with Dr. Padilla on October 05, 2023. Patient readmitted to the hospital for acute GI bleed, hemoglobin 5.9 on admission, underwent EGD and colonoscopy on 10/12/2023 reported mild antral gastritis, small hiatal hernia and short segment Gonzalez's esophagus ,3 cm superficial ulceration consistent with solitary rectal ulcer syndrome, scattered sigmoid diverticulosis and small internal hemorrhoids. Biopsies reported nondiagnostic for malignancy. Reports Sunday, visiting nurse changed his bandage, concerned over the appearance, recommended him to call his surgeon's office. Patient called Dr. Dalal's office, but physician was not in and the office recommended he proceed to the ER for further evaluation. Reports nondraining, constant pain unrelieved by current pain med regimen. Has an appointment set up with pain specialist, on November 08. Denies any further trauma/falls denies chest pain, palpitations or shortness of breath. Denies any fevers chills or sweats. Denies any nausea vomiting or diarrhea. Denies any abdominal pain.WBC 10.4 hemoglobin 7.7 platelets 419 sodium 135 potassium 4.0 bicarb 26 BUN 16 creatinine 0.49. 10/26/2023 maintained on IV antibiotics, afebrile. ESR 56, CRP 4.20.blood and foot cultures pending. slept better, complains of ongoing chronic pain, greatest in left foot. Scheduled for angiogram on Sunday with vascular surgery. 10/29/2023 NPO, scheduled for angiogram and possible intervention today. Preliminary wound culture reporting Citrobacter brachii and gram-negative bacilli ,maintained on Zosyn as per infectious disease. Denies chills or sweats. positive pain. Odiferous. Afebrile, normal WBC. Hemoglobin 8.6, platelets 404. BMP pending. Denies chest pain, palpitations or shortness of breath. Objective - Vital Signs Vital signs: Vital Signs Temp 97.8 F 10/29/23 07:53 Pulse 86 10/29/23 07:53 Resp 20 10/29/23 07:53 BP 113/60 10/29/23 07:53 Pulse Ox 96 10/29/23 07:53 FiO2 Intake & Output 10/28/23 10/29/23 10/29/23 18:59 06:59 18:59 Other: Voiding Method Bedside Commode Urinal # Voids 4 1 # Bowel Movements 3 1 - Exam - Exam PHYSICAL EXAMINATION: VS: As above GENERAL: Alert and oriented 3, sitting up at side of bed, no acute distress HEENT: Normocephalic, atraumatic. Pupils equal and reactive. Sclera anicteric NECK: Supple, no JVD CHEST EXAMINATION: Unlabored, equal air entry, essentially clear, bilateral bases diminished CARDIAC: Normal S1, S2 with no gallops. Systolic murmur. ABDOMEN: Soft. Nondistended, nontender, Bowel sounds normal. 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 NEUROLOGICAL: Cranial nerves II through XII grossly intact. Skin: No rash, warm and dry. Microbiology 10/24/23 22:02 Foot - Left Gram Stain - Preliminary 10/24/23 22:02 Foot - Left Wound Culture - Preliminary Citrobacter braakii Gram Neg Bacilli 10/24/23 18:15 Blood Blood Culture - Preliminary 10/24/23 18:00 Blood Blood Culture - Preliminary 10/24/23 22:02 Foot - Left Anaerobic Culture - Preliminary - Labs CBC & Chem 7: 10/29/23 05:36 10/28/23 06:11 Labs: Abnormal Lab Results - Last 24 Hours (Table) 10/29/23 Range/Units 05:36 RBC 3.04 L (4.30-5.90) m/uL Hgb 8.6 L (13.0-17.5) gm/dL Hct 27.3 L (39.0-53.0) % RDW 17.2 H (11.5-15.5) % Microbiology - Last 24 Hours (Table) 10/24/23 22:02 Gram Stain - Preliminary Foot - Left Wound Culture - Preliminary Citrobacter braakii Gram Neg Bacilli Assessment and Plan Assessment: Left foot dry gangrene ,left foot x-ray changes noted. Preliminary wound cultures reporting Citrobacter brachii and gram-negative bacilli. Recent inpatient admission, discharged on 09/25/2023 with Left great toe,wet gangrene with subcutaneouos gas, in a patient with history of severe PAD, follows with the wound care center secondary to chronic left foot wound with prior second and third toe amputation. Status post left great toe amputation. Wound cultures reported gram-negative bacilli, Citrobacter braakii. PICC line placed, receiving outpatient IV antibiotics Recent percutaneous endovascular aortic repair and balloon angioplasty of left common iliac and external iliac artery, October 05, 2023. Recent GI bleed,on dual platelet therapy OP, Status post EGD and colonoscopy .EGD reported mild antral gastritis, 6 small hiatal hernia and short segment Gonzalez's esophagus. Colonoscopy reported 3 cm superficial ulceration consistent with solitary rectal ulcer syndrome, scattered sigmoid diverticulosis and small internal hemorrhoids. Chronic anemia Chronic CHF, systolic dysfunction, EF 35%. History of right solid renal mass, measuring up to 25 mm, further follow-up outpatient Large cystic lesion in the left upper quadrant unclear with this coming from the pancreas versus the kidney versus postsurgical seroma, further follow-up out patient Recent abdominal aortic aneurysm endovascular repair Colonic diverticulosis Ischemic cardiomyopathy Aortic stenosis Coronary disease with history of CABG Hypertension Hyperlipidemia Nicotine dependence Daily alcohol use Marijuana use Plan: Continue on current medication regimen ,monitoring and symptomatic treatment. BMP pending. Wound cultures in progress, IV antibiotics as per ID. Angiogram & possible intervention pending. The impression and plan of care has been dictated as directed. : I performed a history and examination of this patient, discussed the same with the dictator. I agree with the dictator's note ,documented as a scribe. Any additional findings or plans will be noted.
[2023-10-29] MEDS ORDERED: fentaNYL (PF) 50 MCG/ML 2 ML AMP ONE (11:54)
[2023-10-29] MEDS: fentaNYL (PF) 50 MCG/1 ML VIAL IVP ONE (11:59)
[2023-10-29] MEDS: MIDAZOLAM 2 MG/2 ML VIAL IVP ONE (11:59)
[2023-10-29] MEDS: LIDOCAINE 1% INJ 10MG/ML (20 ML MDV) SQ ONE (12:01)
[2023-10-29] MEDS: SODIUM CHLORIDE 0.9% 500 ML 500 ML IV ONE (12:07)
[2023-10-29] MEDS: IOPAMIDOL-250 100ML BTL INTRAARTER ONE (12:16)
[2023-10-29 12:20] LABS: African American GFR (CKD) 90 (>60 ml/min/1.73 sqM); Anion Gap 9 mmol/L; Blood Urea Nitrogen 24 mg/dL (9-20); Calcium 9.4 mg/dL (8.4-10.2); Carbon Dioxide 27 mmol/L (22-30); Chloride 97 mmol/L (98-107); Glucose 100 mg/dL (74-99); Non-African American GFR(CKD) 78 (>60 ml/min/1.73 sqM); Potassium 4.3 mmol/L (3.5-5.1); Sodium 133 mmol/L (137-145)
--- NOTE | 2023-10-29 12:25 | P.PN ---
Subjective Progress Note Date: 10/29/23 Principal diagnosis: Reason for follow-up is left foot wound and osteomyelitis Patient is a 73-year-old male with a past medical history significant for hypertension hyperlipidemia heart failure coronary artery disease recently underwent percutaneous endovascular aortic repair of the abdominal aortic aneurysm and the patient also have hypertension of the left big toe and revision of the second and third toe that was completed on 09/20/2023 culture positive for anaerobic gram-negative bacilli Citrobacter and Alcaligenes faecalis, patient was getting outpatient Zosyn readmitted to hospital concerning for worsening discoloration and ischemia. On today's evaluation that is 10/29/2023,the patient remains to be afebrile, patient is on room air not requiring supplemental oxygen and denies any shortness of breath no chest pain or cough.Patient denies having any nausea or vomiting, no abdominal pain and no diarrhea has been reported still complaining of pain to the left foot area about 5-10 some improvement with the pain medication. Patient white count is 9.6, creatinine 0.97 culture positive for Citrobacter and Alcaligenes faecalis Objective - Vital Signs Vital signs: Vital Signs Temp 97.8 F 10/29/23 07:53 Pulse 86 10/29/23 07:53 Resp 20 10/29/23 07:53 BP 113/60 10/29/23 07:53 Pulse Ox 96 10/29/23 07:53 FiO2 Intake & Output 10/28/23 10/29/23 10/29/23 18:59 06:59 18:59 Intake Total 200 Balance 200 Intake: IV 200 Other: Voiding Method Bedside Commode Urinal # Voids 4 1 3 # Bowel Movements 3 1 2 - Exam GENERAL DESCRIPTION: An elderly male lying in bed in no distress RESPIRATORY SYSTEM: Unlabored breathing , decreased breath sounds at bases HEART: S1 S2 regular rate and rhythm , ABDOMEN: Soft , no tenderness EXTREMITIES: Left foot is currently dressed did have some discoloration of the left fourth toe no drainage - Labs CBC & Chem 7: 10/29/23 05:36 10/29/23 05:36 Labs: Abnormal Lab Results - Last 24 Hours (Table) 10/29/23 10/29/23 Range/Units 05:36 05:36 RBC 3.04 L (4.30-5.90) m/uL Hgb 8.6 L (13.0-17.5) gm/dL Hct 27.3 L (39.0-53.0) % RDW 17.2 H (11.5-15.5) % Sodium 133 L (137-145) mmol/L Chloride 97 L (98-107) mmol/L BUN 24 H (9-20) mg/dL Glucose 100 H (74-99) mg/dL Microbiology - Last 24 Hours (Table) 10/24/23 22:02 Anaerobic Culture - Final Foot - Left 10/24/23 22:02 Gram Stain - Final Foot - Left Wound Culture - Final Citrobacter braakii Alcaligen. faecalis Assessment and Plan (1) Gangrene of left foot Current Visit: Yes Status: Acute Code(s): I96 - GANGRENE, NOT ELSEWHERE CLASSIFIED SNOMED Code(s): 68777179079887661 (2) Wound of left foot Current Visit: No Status: Acute Code(s): S91.302A - UNSPECIFIED OPEN WOUND, LEFT FOOT, INITIAL ENCOUNTER SNOMED Code(s): 59246821660525618 Plan: 1patient with a recent admission to hospital with left big toe gangrene and this patient was status post amputation and also have extensive wound from previous amputation of the left second and third toe now being admitted to the hospital per advice of his home care nurse because of worsening necrotic changes possible ischemic changes underlying worsening or second infection less likely but not entirely excluded 2- vascular surgery is currently waiting for angiogram and possible intervention this afternoon 3-superficial culture obtained and results are currently growing Citrobacter and Alcaligenes faecalis 4-we will keep the patient on Zosyn however discussed with daptomycin as no gram-positive has been grown Dictation was produced using [employer] dictation software. please excuse any grammatical, word or spelling errors. Time with Patient: Less than 30
--- NOTE | 2023-10-29 12:41 | P.OP ---
Date of Procedure: 10/29/23 Description of Procedure: Preoperative diagnosis: Critical limb ischemia left foot Postop diagnosis: Same, superficial femoral artery flush occlusion with reconstitution below the knee tibioperoneal trunk with questionable two-vessel runoff to the ankle Procedure: Selective left lower extremity angiogram second order via ultrasound- guided right common femoral artery access. Percutaneous closure of the right common femoral artery with Vascade Surgeon: Randy Anesthesia: Moderate sedation times 17 minutes Estimated blood loss: 5cc Complications: None Condition: Stable Findings: Aorta: AFX graft presents without any signs of stenosis or damage. Iliacs: Dense calcification throughout common, internal and external iliac arteries Femorals: Left femoral artery is patent with patent profunda with dense calcification noted throughout. Superficial femoral artery is occluded at the takeoff without any sign of opening or access to the proximal artery. Reconstitution is below the knee at the tibioperoneal trunk Popliteal: Calcification noted throughout with occlusion Tibials: Tibioperoneal trunk with some reconstitution and peroneal artery filling. Decrease flow noted to the below-knee vessels likely due to severe blockage above and lack of pressure. It appears that there is a possible reconstitution of the posterior tibial artery down to the ankle. No flow noted in the foot Operative narrative: After written informed consent was obtained the patient all risks benefits competitions were described the patient is brought to the Sales [facility] and laid in a supine position. The area of the right groin was prepped and draped in the usual sterile fashion. Local anesthesia with moderate sedation was performed with continuous pulse ox monitoring and EKG monitoring. Utilizing ultrasound the right common femoral artery was visualized and shown to be patent without any significant plaque. Utilizing a multipurpose needle under ultrasound guidance the artery was accessed. Guidewire was placed followed by 6F sheath. 035 Glidewire was then placed into the aorta followed by a RBI catheter and placed up and over. Selective angiogram of the left lower extremtiy obtained. Once completed all guidewires, catheters and sheaths were removed, Vascade placed and pressure was placed for hemostasis. Patient tolerated procedure well was sent to PACU for recovery. Will need bypass below knee to hopefully get a BKA to heal vs. AKA.
[2023-10-29] MEDS: ACETAMINOPHEN TAB 325 MG TAB PO PRN (17:23)
[2023-10-30 05:50] VITALS: TEMP 97.9
--- NOTE | 2023-10-30 08:11 | US ---
EXAMINATION TYPE: US vein mapping LT DATE OF EXAM: 10/30/2023 7:56 AM COMPARISON: NONE CLINICAL INDICATION: Male, 73 years old with history of for Fem to below knee bypass; left foot ulcer , pending graft versus amputation on the left SIDE PERFORMED: Left TECHNIQUE: Lower extremity saphenous vein is examined and measured utilizing real time linear array sonography. DUPLEX FINDINGS: Greater Saphenous: Color flow seen Lesser Saphenous: Color flow seen Measurements in mm: Left Greater Saphenous: Groin: 5.7 x 7.1 mm High Thigh: 5.3 x 5.6 mm Mid Thigh: 4.6 x 5.3 mm Above Knee: 2.9 x 3.4 mm Knee: 2.6 x 2.9 mm Below Knee: 3.0 x 3.7 mm Mid Calf: 2.9 x 4.1 mm At Ankle: 1.8 x 2.4 mm IMPRESSION: 1. Left GSV measurements listed above. 2. Performing surgeon to determine viability as conduit.
[2023-10-30 08:33] VITALS: RESP 16
--- NOTE | 2023-10-30 09:10 | P.PN ---
Subjective Progress Note Date: 10/30/23 Principal diagnosis: Peripheral arterial disease, dry gangrene Seen and examined today as a follow-up. Yesterday he underwent left lower extremity angiogram, with findings of superficial femoral artery flush occlusion with reconstitution below the knee tibioperoneal trunk with questionable two- vessel runoff to the ankle. No acute changes through the night. No bleeding from the access site. Objective - Vital Signs Vital signs: Vital Signs Temp 97.9 F 10/30/23 04:00 Pulse 63 10/30/23 04:00 Resp 18 10/30/23 04:00 BP 145/63 10/30/23 04:00 Pulse Ox 98 10/30/23 04:00 FiO2 Intake & Output 10/29/23 10/30/23 10/30/23 18:59 06:59 18:59 Intake Total 755 480 Output Total 2300 Balance 755 -1820 Intake: IV 275 Oral 480 480 Output: Urine 2300 Other: Voiding Method Bedside Commode Bedside Commode Urinal Urinal # Voids 1 # Bowel Movements 2 - Exam General appearance: The patient is alert, oriented, appears in no acute distress. HET: Head is normocephalic and atraumatic. Pupils are equal and reactive. Neck: Supple. Abdomen: Soft, nondistended. Extremities: Right groin without any bleeding or hematoma noted. Left lower extremity With some mild tenderness to palpation, rubber heel and sole press tender to palpation dressing clean dry and intact. Neurological: No focal deficits. Strength and sensation are grossly intact. - Labs CBC & Chem 7: 10/29/23 05:36 10/29/23 05:36 Labs: Abnormal Lab Results - Last 24 Hours (Table) 10/29/23 Range/Units 05:36 Sodium 133 L (137-145) mmol/L Chloride 97 L (98-107) mmol/L BUN 24 H (9-20) mg/dL Glucose 100 H (74-99) mg/dL Microbiology - Last 24 Hours (Table) 10/24/23 18:15 Blood Culture - Final Blood 10/24/23 18:00 Blood Culture - Final Blood 10/24/23 22:02 Anaerobic Culture - Final Foot - Left 10/24/23 22:02 Gram Stain - Final Foot - Left Wound Culture - Final Citrobacter braakii Alcaligen. faecalis Assessment and Plan Assessment: 1. History of severe peripheral arterial disease status post amputation of toes 1 through 3. 2. Critical limb ischemia left foot 3. Superficial femoral artery occlusion with reconstitution below the knee 4. History of abdominal aortic aneurysm status post percutaneous endovascular aortic repair and balloon angioplasty left common iliac, external iliac artery 5. Anemia 6. Recent GI bleed requiring blood transfusion 7. Coronary artery disease with previous CABG 8. Heart failure with reduced EF 9. Ischemic cardiomyopathy, EF 35 to 40% Plan: Dr. Padilla discussed patient's procedure and findings with his daughter Shae Garcia over the phone. Plan to move forward is discharge home, with outpatient follow-up and scheduling of below the knee bypass followed by below the knee amputation. Will get vein mapping left lower extremity. Patient is cleared from vascular surgery for discharge. Antibiotics per recommendations from infectious disease The impression and plan of care has been dictated as directed. I performed a history and examination of this patient, discussed the same with the dictator. I agree with the dictator's note ,documented as a scribe. Any additional findings or plans will be noted.
[2023-10-30 11:41] VITALS: BP 109/56; PULSE 77
--- NOTE | 2023-10-30 22:04 | P.PN ---
Subjective Progress Note Date: 10/30/23 Principal diagnosis: Reason for follow-up is left foot wound and osteomyelitis Patient is a 73-year-old male with a past medical history significant for hypertension hyperlipidemia heart failure coronary artery disease recently underwent percutaneous endovascular aortic repair of the abdominal aortic aneurysm and the patient also have hypertension of the left big toe and revision of the second and third toe that was completed on 09/20/2023 culture positive for anaerobic gram-negative bacilli Citrobacter and Alcaligenes faecalis, patient was getting outpatient Zosyn readmitted to hospital concerning for worsening discoloration and ischemia. On today's evaluation that is 10/30/2023, the patient continues to be afebrile, the patient is on room air and breathing comfortably, The patient denies having any chest pain or cough, the patient denies having any abdominal pain no vomiting or any diarrhea has been reported by the nursing staff, denies any worsening pain to the left foot wound area. No new labs has been obtained today his white count was normal at 9.6 yesterday left foot culture with Citrobacter and Alcaligenes Objective - Vital Signs Vital signs: Vital Signs Temp 97.9 F 10/30/23 07:45 Pulse 77 10/30/23 11:15 Resp 16 10/30/23 11:15 BP 109/56 10/30/23 11:15 Pulse Ox 97 10/30/23 11:15 FiO2 Intake & Output 10/29/23 10/30/23 10/30/23 18:59 06:59 18:59 Intake Total 755 480 118 Output Total 2300 Balance 755 -1820 118 Intake: IV 275 Oral 480 480 118 Output: Urine 2300 Other: Voiding Method Bedside Commode Bedside Commode Bedside Commode Urinal Urinal Urinal # Voids 1 # Bowel Movements 2 - Exam GENERAL DESCRIPTION: An elderly male lying in bed in no distress RESPIRATORY SYSTEM: Unlabored breathing , decreased breath sounds at bases HEART: S1 S2 regular rate and rhythm , ABDOMEN: Soft , no tenderness EXTREMITIES: Left foot is currently dressed did have some discoloration of the left fourth toe no drainage - Labs CBC & Chem 7: 10/29/23 05:36 10/29/23 05:36 Labs: Abnormal Lab Results - Last 24 Hours (Table) 10/29/23 Range/Units 05:36 Sodium 133 L (137-145) mmol/L Chloride 97 L (98-107) mmol/L BUN 24 H (9-20) mg/dL Glucose 100 H (74-99) mg/dL Microbiology - Last 24 Hours (Table) 10/24/23 18:15 Blood Culture - Final Blood 10/24/23 18:00 Blood Culture - Final Blood 10/24/23 22:02 Anaerobic Culture - Final Foot - Left 10/24/23 22:02 Gram Stain - Final Foot - Left Wound Culture - Final Citrobacter braakii Alcaligen. faecalis Assessment and Plan (1) Gangrene of left foot Status: Acute Code(s): I96 - GANGRENE, NOT ELSEWHERE CLASSIFIED SNOMED Code(s): 96499294586607105 (2) Wound of left foot Status: Acute Code(s): S91.302A - UNSPECIFIED OPEN WOUND, LEFT FOOT, INITIAL ENCOUNTER SNOMED Code(s): 20936362584044774 Plan: 1patient with a recent admission to hospital with left big toe gangrene and this patient was status post amputation and also have extensive wound from previous amputation of the left second and third toe now being admitted to the hospital per advice of his home care nurse because of worsening necrotic changes possible ischemic changes underlying worsening or second infection less likely but not entirely excluded 2-patient did have angiogram completed yesterday however vascular surgery recommending further intervention as an outpatient and has cleared the patient for discharge 3-superficial culture obtained and results are currently growing Citrobacter and Alcaligenes faecalis 4-we will keep the patient on Zosyn for another 3 weeks on discharge prescription provided to the transplant case manager and close outpatient follow-up Dictation was produced using [employer] dictation software. please excuse any grammatical, word or spelling errors. Time with Patient: Less than 30
--- NOTE | 2023-10-31 13:40 | P.PN ---
Subjective Progress Note Date: 10/28/23 73-year-old gentleman with past medical history significant for PAD, CAD, CABG, GI bleed, anemia-hemoglobin as low as 4.9, herniated disc, hypertension, hyperlipidemia, nicotine dependence, daily alcohol use, recent inpatient admission, discharged on 09/25/2023 with Left great toe,wet gangrene with subcut aneous gas, follows with the wound care center secondary to chronic left foot wound with prior second and third toe amputation, underwent left great toe amputation. Wound cultures grew gram-negative bacilli, Citrobacter braakii. PICC line placed, receiving IV antibiotics, Zosyn, outpatient. Patient also had a recent percutaneous endovascular aortic repair and balloon angioplasty of left common iliac and external iliac artery with Dr. Padilla on October 05, 2023. Patient readmitted to the hospital for acute GI bleed, hemoglobin 5.9 on admission, underwent EGD and colonoscopy on 10/12/2023 reported mild antral gastritis, small hiatal hernia and short segment Gonzalez's esophagus ,3 cm superficial ulceration consistent with solitary rectal ulcer syndrome, scattered sigmoid diverticulosis and small internal hemorrhoids. Biopsies reported nondiagnostic for malignancy. Reports Sunday, visiting nurse changed his bandage, concerned over the appearance, recommended him to call his surgeon's office. Patient called Dr. Dalal's office, but physician was not in and the office recommended he proceed to the ER for further evaluation. Reports nondraining, constant pain unrelieved by current pain med regimen. Has an appointment set up with pain specialist, on November 08. Denies any further trauma/falls denies chest pain, palpitations or shortness of breath. Denies any fevers chills or sweats. Denies any nausea vomiting or diarrhea. Denies any abdominal pain.WBC 10.4 hemoglobin 7.7 platelets 419 sodium 135 potassium 4.0 bicarb 26 BUN 16 creatinine 0.49 10/28/2023 --patient denies any fever or any chills, patient is breathing comfortably on room air, the patient denies chest pain shortness of breath and no significant cough, patient denies abdominal pain, no nausea vomiting or diarrhea. Patient describing pain to the left foot to be about 5-10 and some relief with the pain medication. Patient white count is 8.65 creatinine 0.9 cultures growing Citrobacter which is sensitive to Zosyn other gram-negative ID is pendin patient with a recent admission to hospital with left big toe gangrene and this patient was status post amputation and also have extensive wound from previous amputation of the left second and third toe now being admitted to the hospital per advice of his home care nurse because of worsening necrotic changes possible ischemic changes underlying worsening or second infection less likely but not entirely excluded - vascular surgery is currently waiting for angiogram and possible intervention tomorrow -superficial culture obtained and results are currently growing gram-negative -we will keep the patient on Zosyn if no gram-positive on daptomycin will be discontinued Objective - Vital Signs Vital signs: Vital Signs Temp 97.5 F L 10/28/23 08:17 Pulse 84 10/28/23 08:17 Resp 20 10/28/23 08:17 BP 113/67 10/28/23 08:17 Pulse Ox 97 10/28/23 08:17 FiO2 Intake & Output 10/27/23 10/28/23 10/28/23 18:59 06:59 18:59 Other: Voiding Method Bedside Commode Urinal # Voids 5 - Exam GENERAL: Alert and oriented 3, sitting up at side of bed, no acute distress HEENT: Normocephalic, atraumatic. Pupils equal and reactive. Sclera anicteric NECK: Supple, no JVD CHEST EXAMINATION: Unlabored, equal air entry, essentially clear, bilateral bases diminished CARDIAC: Normal S1, S2 with no gallops. Systolic murmur. ABDOMEN: Soft. Nondistended, nontender, Bowel sounds normal. No guarding, no rigidity. EXTREMITIES: Left foot dressing clean dry and intact. NEUROLOGICAL: Cranial nerves II through XII grossly intact. Skin: No rash, warm and dry. - Labs CBC & Chem 7: 10/29/23 05:36 10/29/23 05:36 Labs: Abnormal Lab Results - Last 24 Hours (Table) 10/28/23 10/28/23 Range/Units 06:11 06:11 RBC 2.92 L (4.40-5.60) X 10*6/uL Hgb 8.2 L (13.0-17.0) g/dL Hct 26.1 L (39.6-50.0) % MCHC 31.4 L (32.0-37.0) g/dL RDW 18.2 H (11.5-14.5) % MPV 8.9 L (9.5-12.2) FL Sodium 131 L (135-145) mmol/L Chloride 93 L (96-109) mmol/L BUN/Creatinine Ratio 23.78 H (12.00-20.00) Ratio Microbiology - Last 24 Hours (Table) 10/24/23 22:02 Gram Stain - Preliminary Foot - Left Wound Culture - Preliminary Citrobacter braakii Gram Neg Bacilli 10/24/23 18:15 Blood Culture - Preliminary Blood 10/24/23 18:00 Blood Culture - Preliminary Blood 10/24/23 22:02 Anaerobic Culture - Preliminary Foot - Left Assessment and Plan Assessment: Left foot dry gangrene ,left foot x-ray changes noted. Recent inpatient admission, discharged on 09/25/2023 with Left great toe,wet g angrene with subcutaneouos gas, in a patient with history of severe PAD, follows with the wound care center secondary to chronic left foot wound with prior second and third toe amputation. Status post left great toe amputation. Wound cultures reported gram-negative bacilli, Citrobacter braakii. PICC line placed, receiving outpatient IV antibiotics Recent percutaneous endovascular aortic repair and balloon angioplasty of left common iliac and external iliac artery, October 05, 2023. Recent GI bleed,on dual platelet therapy OP, Status post EGD and colonoscopy .EGD reported mild antral gastritis, 6 small hiatal hernia and short segment Gonzalez's esophagus. Colonoscopy reported 3 cm superficial ulceration consistent with solitary rectal ulcer syndrome, scattered sigmoid diverticulosis and small internal hemorrhoids. Chronic anemia Chronic CHF, systolic dysfunction, EF 35%. History of right solid renal mass, measuring up to 25 mm, further follow-up outpatient Large cystic lesion in the left upper quadrant unclear with this coming from the pancreas versus the kidney versus postsurgical seroma, further follow-up outpatient Recent abdominal aortic aneurysm endovascular repair Colonic diverticulosis Ischemic cardiomyopathy Aortic stenosis Coronary disease with history of CABG Hypertension Hyperlipidemia Nicotine dependence Daily alcohol use Marijuana use Plan: Continue on current medication regimen ,monitoring and symptomatic treatment. Blood and wound cultures in progress. gentle IV fluid hydration, IV antibiotics-Zosyn, vancomycin. Close monitoring of renal function with repeat labs ordered for a.m. pain management. PPI ordered for GI prophylaxis. Infectious disease and vascular surgery consults in place, recommendations pending.
--- NOTE | 2023-11-01 09:09 | P.DS ---
Providers Date of admission: 10/24/23 19:34 Expected date of discharge: 10/30/23 Attending physician: Yusuf Lisa MD Consults: 10/24/23 19:33 Consult Physician Urgent Consulting Provider: Tay Padilla Consult Reason/Comments: Gangrene left foot Do you want consulting provider notified?: Yes Consult Physician Urgent Consulting Provider: Salima Galo Consult Reason/Comments: Gangrene, poss osteomyelitis of left foot Do you want consulting provider notified?: Yes Primary care physician: Maggy Siegel Hospital Course: Final Diagnoses: Left foot dry gangrene ,left foot x-ray changes noted. Preliminary wound cultures reporting Citrobacter brachii and gram-negative bacilli. Status post left lower extremity angiogram reporting superficial femoral artery flush occ lusion with reconstitution below the knee tibioperoneal trunk with questionable two-vessel runoff to the ankle.superficial culture currently growing Citrobacter and Alcaligenes faecalis Recent inpatient admission, discharged on 09/25/2023 with Left great toe,wet gangrene with subcutaneouos gas, in a patient with history of severe PAD, follows with the wound care center secondary to chronic left foot wound with prior second and third toe amputation. Status post left great toe amputation. Wound cultures reported gram-negative bacilli, Citrobacter braakii. PICC line placed, receiving outpatient IV antibiotics Recent percutaneous endovascular aortic repair and balloon angioplasty of left common iliac and external iliac artery, October 05, 2023. Recent GI bleed,on dual platelet therapy OP, Status post EGD and colonoscopy .EGD reported mild antral gastritis, 6 small hiatal hernia and short segment Gonzalez's esophagus. Colonoscopy reported 3 cm superficial ulceration consistent with solitary rectal ulcer syndrome, scattered sigmoid diverticulosis and small internal hemorrhoids. Chronic anemia Chronic CHF, systolic dysfunction, EF 35%. History of right solid renal mass, measuring up to 25 mm, further follow-up outpatient Large cystic lesion in the left upper quadrant unclear with this coming from the pancreas versus the kidney versus postsurgical seroma, further follow-up out patient Recent abdominal aortic aneurysm endovascular repair Colonic diverticulosis Ischemic cardiomyopathy Aortic stenosis Coronary disease with history of CABG Hypertension Hyperlipidemia Nicotine dependence Daily alcohol use Marijuana use Hospital course:This is a 73-year-old gentleman with past medical history significant for PAD, CAD, CABG, GI bleed, anemia-hemoglobin as low as 4.9, herniated disc, hypertension, hyperlipidemia, nicotine dependence, daily alcohol use, recent inpatient admission, discharged on 09/25/2023 with Left great toe,wet gangrene with subcutaneous gas, follows with the wound care center secondary to chronic left foot wound with prior second and third toe amputation, underwent left great toe amputation. Wound cultures grew gram-negative bacilli, Cit robacter braakii. PICC line placed, receiving IV antibiotics, Zosyn, outpatient. Patient also had a recent percutaneous endovascular aortic repair and balloon angioplasty of left common iliac and external iliac artery with Dr. Padilla on October 05, 2023. Patient readmitted to the hospital for acute GI bleed, hemoglobin 5.9 on admission, underwent EGD and colonoscopy on 10/12/2023 reported mild antral gastritis, small hiatal hernia and short segment Gonzalez's esophagus ,3 cm superficial ulceration consistent with solitary rectal ulcer syndrome, scattered sigmoid diverticulosis and small internal hemorrhoids. Biopsies reported nondiagnostic for malignancy. Reports Sunday, visiting nurse changed his bandage, concerned over the appearance, recommended him to call his surgeon's office. Patient called Dr. Dalal's office, but physician was not in and the office recommended he proceed to the ER for further evaluation. Reports nondraining, constant pain unrelieved by current pain med regimen. Has an appointment set up with pain specialist, on November 08. Denies any further trauma/falls denies chest pain, palpitations or shortness of breath. Denies any fevers chills or sweats. Denies any nausea vomiting or diarrhea. Denies any abdominal pain.WBC 10.4 hemoglobin 7.7 platelets 419 sodium 135 potassium 4.0 bicarb 26 BUN 16 creatinine 0.49. 10/26/2023 maintained on IV antibiotics, afebrile. ESR 56, CRP 4.20.blood and foot cultures pending. slept better, complains of ongoing chronic pain, greatest in left foot. Scheduled for angiogram on Sunday with vascular surgery. 10/29/2023 NPO, scheduled for angiogram and possible intervention today. Preliminary wound culture reporting Citrobacter brachii and gram-negative bacilli ,maintained on Zosyn as per infectious disease. Denies chills or sweats. positive pain. Odiferous. Afebrile, normal WBC. Hemoglobin 8.6, platelets 404. BMP pending. Denies chest pain, palpitations or shortness of breath. Status post left lower extremity angiogram, with findings of superficial femoral artery flush occlusion with reconstitution below the knee tibioperoneal trunk with questionable two-vessel runoff to the ankle. Tolerated procedure well. Dressing clean dry and intact. Vital signs stable .Pain improving. vein mapping of left lower extremity completed this morning .Vascular surgery recommending outpatient follow-up and further intervention-scheduling BKA. Significant clinical improvement. Cleared by vascular surgery for discharge. Patient will be discharged home today in a stable condition with guarded prognosis pending final DC recommendations/antibiotics and clearance per ID. Microbiology 10/24/23 18:15 Blood Blood Culture - Final 10/24/23 18:00 Blood Blood Culture - Final 10/24/23 22:02 Foot - Left Anaerobic Culture - Final 10/24/23 22:02 Foot - Left Gram Stain - Final 10/24/23 22:02 Foot - Left Wound Culture - Final Citrobacter braakii Alcaligen. faecalis The impression and plan of care has been dictated as directed. : I performed a history and examination of this patient, discussed the same with the dictator. I agree with the dictator's note ,documented as a scribe. Any additional findings or plans will be noted. Patient Condition at Discharge: Stable Plan - Discharge Summary Discharge Rx Participant: Yes New Discharge Prescriptions: Continue lisinopriL [Zestril] 2.5 mg PO HS #30 tab Montelukast [Singulair] 10 mg PO HS #30 tab Loratadine [Claritin] 10 mg PO DAILY Atorvastatin [Lipitor] 80 mg PO HS Acetaminophen Tab [Tylenol] 650 mg PO Q6HR PRN tab PRN Reason: Mild Pain Or Fever > 100.5 Gabapentin 600 mg PO TID #9 tab Omeprazole [PriLOSEC] 40 mg PO BID 30 Days #60 cap Aspirin 81 mg PO DAILY 30 Days #30 tab Albuterol Nebulized [Ventolin Nebulized] 2.5 mg INHALATION RT-QID PRN PRN Reason: Shortness Of Breath Spironolactone [Aldactone] 25 mg PO DAILY Folic Acid 1 mg PO DAILY tab Furosemide [Lasix] 40 mg PO DAILY #30 tablet Thiamine [Vitamin B-1] 100 mg PO DAILY tab Magnesium Citrate and Oxide [Magnesium] 500 mg PO DAILY #30 cap polyethylene glycoL 3350 [Miralax] 17 gm PO DAILY PRN PRN Reason: Constipation HYDROcodone/APAP 5-325MG [[place] 5-325] 1 tab PO BID carvediloL [Coreg] 6.25 mg PO BID-W/MEALS Multivitamins, Thera [Multivitamin (formulary)] 1 tab PO DAILY Omeprazole [PriLOSEC] 40 mg PO AC-BID 30 Days #60 cap Silver Sulfadiazine [Silver Sulfadiazine 1%] 1 applic TOPICAL BID No Action Piperacillin-Tazobactam [Zosyn] 3.375 gm IVPB Q8HR #120 each Discharge Medication List Montelukast [Singulair] 10 mg PO HS #30 tab 02/22/16 [Rx] lisinopriL [Zestril] 2.5 mg PO HS #30 tab 02/22/16 [Rx] Loratadine [Claritin] 10 mg PO DAILY 09/08/20 [History] Atorvastatin [Lipitor] 80 mg PO HS 09/20/23 [History] Spironolactone [Aldactone] 25 mg PO DAILY 09/20/23 [History] Acetaminophen Tab [Tylenol] 650 mg PO Q6HR PRN tab 09/25/23 [Rx] Folic Acid 1 mg PO DAILY tab 09/25/23 [Rx] Furosemide [Lasix] 40 mg PO DAILY #30 tablet 09/25/23 [Rx] Gabapentin 600 mg PO TID #9 tab 09/25/23 [Rx] Magnesium Citrate and Oxide [Magnesium] 500 mg PO DAILY #30 cap 09/25/23 [Rx] Piperacillin-Tazobactam [Zosyn] 3.375 gm IVPB Q8HR #120 each 09/25/23 [Rx] Thiamine [Vitamin B-1] 100 mg PO DAILY tab 09/25/23 [Rx] polyethylene glycoL 3350 [Miralax] 17 gm PO DAILY PRN 10/05/23 [History] HYDROcodone/APAP 5-325MG [[place] 5-325] 1 tab PO BID 10/10/23 [History] Multivitamins, Thera [Multivitamin (formulary)] 1 tab PO DAILY 10/10/23 [History] carvediloL [Coreg] 6.25 mg PO BID-W/MEALS 10/10/23 [History] Aspirin 81 mg PO DAILY 30 Days #30 tab 10/13/23 [Rx] Omeprazole [PriLOSEC] 40 mg PO AC-BID 30 Days #60 cap 10/13/23 [Rx] Omeprazole [PriLOSEC] 40 mg PO BID 30 Days #60 cap 10/13/23 [Rx] Albuterol Nebulized [Ventolin Nebulized] 2.5 mg INHALATION RT-QID PRN 10/24/23 [History] Silver Sulfadiazine [Silver Sulfadiazine 1%] 1 applic TOPICAL BID 10/24/23 [History] Follow up Appointment(s)/Referral(s): Yusuf Lisa MD [STAFF PHYSICIAN] - 11/06/23 10:45 am (At [facility] where your normal appointments are. ) Tay Padilla DO [STAFF PHYSICIAN] - 11/06/23 8:45 am (You will be seen in office to schedule bypass. ) Patient Instructions/Handouts: Angiogram (DC) Activity/Diet/Wound Care/Special Instructions: Wound care as per vascular surgery Discharge Disposition: HOME SELF-CARE
== END 2023-10-30 12:57 | disposition home or self-care (01) | DRG 565 ==
LOC: EC 16:44 → 4SSUR 19:34 → 3SCARD 10-29 12:11
PROVIDERS: ADMIT Family Medicine; ATTEND Family Medicine
PROC: B41G1ZZ Fluoroscopy of Left Lower Extremity Arteries using Low Osmolar Contrast (ICD-10-PCS; principal; 2023-10-29 11:00)
DX: T87.44 Infection of amputation stump, left lower extremity (principal); E11.52 Type 2 diabetes mellitus with diabetic peripheral angiopathy with gangrene; I96 Gangrene, not elsewhere classified; I50.32 Chronic diastolic (congestive) heart failure; K62.6 Ulcer of anus and rectum; Y84.8 Other medical procedures as the cause of abnormal reaction of the patient, or of later complication, without mention of misadventure at the time of the procedure; K57.30 Diverticulosis of large intestine without perforation or abscess without bleeding; K64.8 Other hemorrhoids; K44.9 Diaphragmatic hernia without obstruction or gangrene; K29.70 Gastritis, unspecified, without bleeding; I11.0 Hypertensive heart disease with heart failure; N28.89 Other specified disorders of kidney and ureter; D64.9 Anemia, unspecified; I71.40 Abdominal aortic aneurysm, without rupture, unspecified; I35.0 Nonrheumatic aortic (valve) stenosis; F17.210 Nicotine dependence, cigarettes, uncomplicated; E78.5 Hyperlipidemia, unspecified; Z95.1 Presence of aortocoronary bypass graft; I25.5 Ischemic cardiomyopathy; I25.10 Atherosclerotic heart disease of native coronary artery without angina pectoris; G89.29 Other chronic pain; D72.829 Elevated white blood cell count, unspecified; B96.89 Other specified bacterial agents as the cause of diseases classified elsewhere; I99.8 Other disorder of circulatory system; E11.69 Type 2 diabetes mellitus with other specified complication; I25.2 Old myocardial infarction; K22.70 Barrett's esophagus without dysplasia; M81.0 Age-related osteoporosis without current pathological fracture; M25.775 Osteophyte, left foot; Z79.82 Long term (current) use of aspirin; Z79.899 Other long term (current) drug therapy; Z82.49 Family history of ischemic heart disease and other diseases of the circulatory system; Z86.79 Personal history of other diseases of the circulatory system; Z89.412 Acquired absence of left great toe
CPT/HCPCS: 36246; 36415; 75710; 76937; 80048; 80053; 80202; 83605; 85025; 85027; 85652; 86140; 87040; 87070; 87075; 87077; 87186; 87205; 96365; 96366; 96375; 96376; 99285

== ENCOUNTER 2023-11-14 15:52 | Observation (INO) | payer MEDICARE ==
--- NOTE | 2023-11-14 16:37 | ED ---
Recheck HPI - General Source: patient, RN notes reviewed Mode of arrival: wheelchair Limitations: no limitations <Melony Moseley - Last Filed: 11/14/23 16:36> <Manuel Levin - Last Filed: 11/14/23 19:23> - General Stated Complaint: Abn Labs, Hemo 6.4 Time Seen by Provider: 11/14/23 16:36 - History of Present Illness Initial Comments: Patient is a 73-year-old male presented to ER with a chief complaint of low hemoglobin. States his hemoglobin was drawn yesterday by a visiting nurse and was found to be 6.4. Patient denies any chest pain, shortness of breath, dizziness, lightheadedness. He does state that he feels tired. Has had 1 blood transfusion prior due to surgery. (Melony Moseley) This is a 73-year-old male who presents to the emergency department because of low hemoglobin. Patient states his visiting nurse took his blood today and told him that his hemoglobin was low and it was come to the emergency department. Patient states hemoglobin 6.4. Patient states has been a little bit tired but d enies any shortness of breath. Patient Nuys chest pain palpitations. Patient denies any lightheadedness or dizziness. Patient denies vomiting patient denies any dark or bloody stools. Patient denies any blood thinners (Manuel Levin) - Related Data Home Medications Medication Instructions Recorded Confirmed Loratadine [Claritin] 10 mg PO DAILY 09/08/20 10/24/23 Atorvastatin [Lipitor] 80 mg PO HS 09/20/23 10/24/23 Spironolactone [Aldactone] 25 mg PO DAILY 09/20/23 10/24/23 polyethylene glycoL 3350 [Miralax] 17 gm PO DAILY PRN 10/05/23 10/24/23 HYDROcodone/APAP 5-325MG [[place] 1 tab PO BID 10/10/23 10/24/23 5-325] Multivitamins, Thera [Multivitamin 1 tab PO DAILY 10/10/23 10/24/23 (formulary)] carvediloL [Coreg] 6.25 mg PO BID-W/MEALS 10/10/23 10/24/23 Albuterol Nebulized [Ventolin 2.5 mg INHALATION RT-QID PRN 10/24/23 10/24/23 Nebulized] Silver Sulfadiazine [Silver 1 applic TOPICAL BID 10/24/23 10/24/23 Sulfadiazine 1%] Previous Rx's Medication Instructions Recorded Montelukast [Singulair] 10 mg PO HS #30 tab 02/22/16 lisinopriL [Zestril] 2.5 mg PO HS #30 tab 02/22/16 Acetaminophen Tab [Tylenol] 650 mg PO Q6HR PRN tab 09/25/23 Folic Acid 1 mg PO DAILY tab 09/25/23 Furosemide [Lasix] 40 mg PO DAILY #30 tablet 09/25/23 Gabapentin 600 mg PO TID #9 tab 09/25/23 Magnesium Citrate and Oxide 500 mg PO DAILY #30 cap 09/25/23 [Magnesium] Piperacillin-Tazobactam [Zosyn] 3.375 gm IVPB Q8HR #120 each 09/25/23 Thiamine [Vitamin B-1] 100 mg PO DAILY tab 09/25/23 Aspirin 81 mg PO DAILY 30 Days #30 tab 10/13/23 Omeprazole [PriLOSEC] 40 mg PO AC-BID 30 Days #60 cap 10/13/23 Omeprazole [PriLOSEC] 40 mg PO BID 30 Days #60 cap 10/13/23 Allergies Allergy/AdvReac Type Severity Reaction Status Date / Time No Known Allergies Allergy Verified 11/14/23 16:53 Review of Systems ROS Other: All systems not noted in ROS Statement are negative. <Melony Moseley - Last Filed: 11/14/23 16:36> ROS Other: All systems not noted in ROS Statement are negative. <Manuel Levin - Last Filed: 11/14/23 19:23> ROS Statement: Those systems with pertinent positive or pertinent negative responses have been documented in the HPI. Past Medical History Past Medical History: Coronary Artery Disease (CAD), Heart Failure, Hyperlipidemia, Hypertension, Vascular Disorder Additional Past Medical History / Comment(s): aortic aneusrym, herniated disc, peripheral vascular disease Last Myocardial Infarction Date:: 02/2023 History of Any Multi-Drug Resistant Organisms: None Reported Past Surgical History: Appendectomy, Coronary Bypass/CABG, Orthopedic Surgery Additional Past Surgical History / Comment(s): Right rotater cuff repair, L first and second toe removal Past Anesthesia/Blood Transfusion Reactions: No Reported Reaction Past Psychological History: No Psychological Hx Reported Smoking Status: Current some day smoker, Light tobacco smoker Past Alcohol Use History: Daily, Occasional Past Drug Use History: Marijuana - Past Family History Father Family Medical History: Coronary Artery Disease (CAD) Additional Family Medical History / Comment(s): triple bypass Mother Family Medical History: Coronary Artery Disease (CAD), Dementia <Melony Moseley - Last Filed: 11/14/23 16:36> General Exam <Melony Moseley - Last Filed: 11/14/23 16:36> <Manuel Levin - Last Filed: 11/14/23 19:23> - General Exam Comments Initial Comments: Visual Physical Exam Vital signs reviewed General: Well-appearing, nontoxic, no acute distress. Head: Normocephalic, atraumatic Eyes: PERRLA, EOMI ENT: Airway patent Chest: Nonlabored breathing Skin: No visual rash, pale Neuro: Alert and oriented 3 Musculoskeletal: No gross abnormalities (Melony Moseley) GENERAL: Patient is well-developed and well-nourished. Patient is nontoxic and well- hydrated and is in mild distress. ENT: Neck is soft and supple. No significant lymphadenopathy is noted. Oropharynx is clear. Moist mucous membranes. Neck has full range of motion without eliciting any pain. EYES: The sclera were anicteric and conjunctiva are pale. Extraocular movements were intact and pupils were equal round and reactive to light. Eyelids were unremarkable. PULMONARY: Unlabored respirations. Good breath sounds bilaterally. No audible rales rhonchi or wheezing was noted. CARDIOVASCULAR: There is a regular rate and rhythm without any murmurs gallops or rubs. ABDOMEN: Soft and nontender with normal bowel sounds. SKIN: Skin is clear with no lesions or rashes and otherwise unremarkable. NEUROLOGIC: Patient is alert and oriented x3. Cranial nerves II through XII are grossly intact. Motor and sensory are also intact. Normal speech, volume and content. Symmetrical smile. MUSCULOSKELETAL: Normal extremities with adequate strength and full range of motion. LYMPHATICS: No significant lymphadenopathy is noted PSYCHIATRIC: Normal psychiatric evaluation. (Manuel Levin) Course Vital Signs 11/14/23 11/14/23 11/14/23 16:46 17:23 17:30 Temperature 98.5 F Pulse Rate 89 87 87 Respiratory 18 16 14 Rate Blood Pressure 143/71 138/70 150/77 O2 Sat by Pulse 100 100 99 Oximetry 11/14/23 11/14/23 18:00 19:00 Temperature Pulse Rate 88 91 Respiratory 16 16 Rate Blood Pressure 143/73 153/89 O2 Sat by Pulse 99 98 Oximetry Medical Decision Making <Melony Moseley - Last Filed: 11/14/23 16:36> - Lab Data Result diagrams: 11/14/23 17:14 11/14/23 17:14 <Manuel Levin - Last Filed: 11/14/23 19:23> - Medical Decision Making I performed the quick note portion of this chart. Electronically signed by Melony Moseley PA-C (Melony Moseley) Was pt. sent in by a medical professional or institution ([facility], NIGHT SHIFT MANAGER, urgent care, hospital, or care home...) When possible be specific @ -Patient was sent in by his nurse Did you speak to anyone other than the patient for history (EMS, parent, family, police, friend...)? What history was obtained from this source @ -No Did you review nursing and triage notes (agree or disagree)? Why? @ -I reviewed and agree with nursing and triage notes Were old charts reviewed (outside hosp., previous admission, EMS record, old EKG, old radiological studies, urgent care reports/EKG's, care home records)? Report findings @ -I reviewed prior charts and prior lab work on this patient Differential Diagnosis (chest pain, altered mental status, abdominal pain women, abdominal pain men, vaginal bleeding, weakness, fever, dyspnea, syncope, headache, dizziness, GI bleed, back pain, seizure, CVA, palpatations, mental health, musculoskeletal)? @ -Differential Weakness: Hypoglycemia, shock, sepsis, hyponatremia, anemia, infection, ID, ETOH, adverse medicine reaction, overdose, stroke, this is not meant to be an all-inclusive list. EKG interpreted by me (3pts min.). @ -As above X-rays interpreted by me (1pt min.). @ -None done CT interpreted by me (1pt min.). @ -None done U/S interpreted by me (1pt. min.). @ -None done What testing was considered but not performed or refused? (CT, X-rays, U/S, labs)? Why? @ -None What meds were considered but not given or refused? Why? @ -None Did you discuss the management of the patient with other professionals (professionals i.e. , PA, NIGHT SHIFT MANAGER, lab, RT, psych nurse, social service agency director, presiding steward, teacher, public records officer, case management director)? Give summary @ -I spoke with Dr. Lisa and he agreed to admit the patient admit the patient wrote admitting orders Was smoking cessation discussed for >3mins.? @ -No Was critical care preformed (if so, how long)? @ -No Were there social determinants of health that impacted care today? How? ( Homelessness, low income, unemployed, alcoholism, drug addiction, transportation, low edu. Level, literacy, decrease access to med. care, residential, rehab)? @ -No Was there de-escalation of care discussed even if they declined (Discuss DNR or withdrawal of care, Hospice)? DNR status @ -No What co-morbidities impacted this encounter? (DM, HTN, Smoking, COPD, CAD, Cancer, CVA, ARF, Chemo, Hep., AIDS, mental health diagnosis, sleep apnea, morbid obesity)? @ -None Was patient admitted / discharged? Hospital course, mention meds given and route, prescriptions, significant lab abnormalities, going to OR and other pertinent info. @ -Patient's lab work came back with a low hemoglobin patient was given 1 unit of packed red blood cells. I admitted the patient with Dr. Lisa and I consulted hematology Undiagnosed new problem with uncertain prognosis? @ -No Drug Therapy requiring intensive monitoring for toxicity (Heparin, Nitro, Insulin, Cardizem)? @ -No Were any procedures done? @ -No Diagnosis/symptom? @ -Anemia Acute, or Chronic, or Acute on Chronic? @ -Acute Uncomplicated (without systemic symptoms) or Complicated (systemic symptoms)? @ -Complicated Side effects of treatment? @ -No Exacerbation, Progression, or Severe Exacerbation? @ -No Poses a threat to life or bodily function? How? (Chest pain, USA, ID, pneumonia, PE, COPD, DKA, ARF, appy, cholecystitis, CVA, Diverticulitis, Homicidal, Suicidal, threat to staff... and all critical care pts) @ -Yes this could lead to poor perfusion and endorgan dysfunction (Manuel Levin) - Lab Data Lab Results 11/14/23 11/14/23 11/14/23 Range/Units 17:14 17:14 17:21 WBC 9.0 (3.8-10.6) k/uL RBC 2.42 L (4.30-5.90) m/uL Hgb 6.6 L* D (13.0-17.5) gm/dL Hct 20.8 L (39.0-53.0) % MCV 85.9 (80.0-100.0) fL MCH 27.4 (25.0-35.0) pg MCHC 31.9 (31.0-37.0) g/dL RDW 16.5 H (11.5-15.5) % Plt Count 387 (150-450) k/uL MPV 7.4 Hypochromasia Moderate Anisocytosis Slight PT (10.0-12.5) sec INR (<1.2) APTT (22.0-30.0) sec Sodium 134 L (137-145) mmol/L Potassium 3.7 (3.5-5.1) mmol/L Chloride 102 (98-107) mmol/L Carbon Dioxide 28 (22-30) mmol/L Anion Gap 4 mmol/L BUN 18 (9-20) mg/dL Creatinine 0.64 L (0.66-1.25) mg/dL Est GFR (CKD-EPI)AfAm >90 (>60 ml/min/1.73 sqM) Est GFR (CKD-EPI)NonAf >90 (>60 ml/min/1.73 sqM) Glucose 91 (74-99) mg/dL Calcium 8.8 (8.4-10.2) mg/dL Magnesium (1.6-2.3) mg/dL Total Bilirubin 0.3 (0.2-1.3) mg/dL AST 21 (17-59) U/L ALT 16 (4-49) U/L Alkaline Phosphatase 86 (38-126) U/L Total Protein 6.3 (6.3-8.2) g/dL Albumin 3.4 L (3.5-5.0) g/dL Blood Type A Negative Blood Type Recheck A Neg Bld Type Recheck Status No Antibody Screen NEGATIVE Crossmatch See Detail Spec Expiration Date 11/17/2023 - 232011/14/23 11/14/23 Range/Units 17:27 17:27 WBC (3.8-10.6) k/uL RBC (4.30-5.90) m/uL Hgb (13.0-17.5) gm/dL Hct (39.0-53.0) % MCV (80.0-100.0) fL MCH (25.0-35.0) pg MCHC (31.0-37.0) g/dL RDW (11.5-15.5) % Plt Count (150-450) k/uL MPV Hypochromasia Anisocytosis PT 13.4 H (10.0-12.5) sec INR 1.3 H (<1.2) APTT 24.8 (22.0-30.0) sec Sodium (137-145) mmol/L Potassium (3.5-5.1) mmol/L Chloride (98-107) mmol/L Carbon Dioxide (22-30) mmol/L Anion Gap mmol/L BUN (9-20) mg/dL Creatinine (0.66-1.25) mg/dL Est GFR (CKD-EPI)AfAm (>60 ml/min/1.73 sqM) Est GFR (CKD-EPI)NonAf (>60 ml/min/1.73 sqM) Glucose (74-99) mg/dL Calcium (8.4-10.2) mg/dL Magnesium 1.8 (1.6-2.3) mg/dL Total Bilirubin (0.2-1.3) mg/dL AST (17-59) U/L ALT (4-49) U/L Alkaline Phosphatase (38-126) U/L Total Protein (6.3-8.2) g/dL Albumin (3.5-5.0) g/dL Blood Type Blood Type Recheck Bld Type Recheck Status Antibody Screen Crossmatch Spec Expiration Date Disposition <Melony Moseley - Last Filed: 11/14/23 16:36> Time of Disposition: 19:23 <Manuel Levin - Last Filed: 11/14/23 19:23> Clinical Impression: Anemia Disposition: ADMITTED IP TO THIS HOSP Referrals: Maggy Siegel DO [Primary Care Provider] - 1-2 days
[2023-11-14 17:34] LABS: Anisocytosis Slight; HCT 20.8 % (39.0-53.0); Hypochromasia Moderate; MCH 27.4 pg (25.0-35.0); MCHC 31.9 g/dL (31.0-37.0); MCV 85.9 fL (80.0-100.0); Mean Platelet Volume 7.4; Platelet Count 387 k/uL (150-450); RBC 2.42 m/uL (4.30-5.90); RDW 16.5 % (11.5-15.5)
[2023-11-14 17:50] LABS: ALT 16 U/L (4-49); AST 21 U/L (17-59); African American GFR (CKD) >90 (>60 ml/min/1.73 sqM); Albumin 3.4 g/dL (3.5-5.0); Alkaline Phosphatase 86 U/L (38-126); Anion Gap 4 mmol/L; Blood Urea Nitrogen 18 mg/dL (9-20); Calcium 8.8 mg/dL (8.4-10.2); Carbon Dioxide 28 mmol/L (22-30); Chloride 102 mmol/L (98-107); Glucose 91 mg/dL (74-99); Non-African American GFR(CKD) >90 (>60 ml/min/1.73 sqM); Potassium 3.7 mmol/L (3.5-5.1); Sodium 134 mmol/L (137-145); Total Bilirubin 0.3 mg/dL (0.2-1.3); Total Protein 6.3 g/dL (6.3-8.2)
[2023-11-14 18:09] LABS: HGB 6.6 gm/dL (13.0-17.5)
[2023-11-14 18:39] LABS: INR 1.3 (<1.2); Partial Thromboplastin Time 24.8 sec (22.0-30.0); Prothrombin Time 13.4 sec (10.0-12.5)
[2023-11-14] MEDS: GABAPENTIN 400 MG CAP PO SCH (20:23)
[2023-11-14] MEDS: MORPHINE SULFATE ER 15 MG TABLET PO SCH (20:23)
[2023-11-15 05:35] LABS: Anisocytosis Slight; Basophils % (A) 0 %; Eosinophils # (A) 0.6 k/uL (0-0.7); Eosinophils % (A) 8 %; HCT 22.4 % (39.0-53.0); HGB 7.2 gm/dL (13.0-17.5); Hypochromasia Moderate; Lymphocytes # (A) 0.5 k/uL (1.0-4.8); Lymphocytes % (A) 6 %; MCH 27.4 pg (25.0-35.0); MCV 85.8 fL (80.0-100.0); Mean Platelet Volume 7.2; Monocytes # (A) 0.7 k/uL (0-1.0); Monocytes % (A) 9 %; Neutrophils % (A) 73 %; Platelet Count 348 k/uL (150-450); Poikilocytosis Slight; RBC 2.61 m/uL (4.30-5.90); RDW 16.4 % (11.5-15.5); WBC 8.2 k/uL (3.8-10.6)
[2023-11-15] MEDS: PIPERACILLIN-TAZOBACTAM 3.375 GM VIAL IVPB SCH (05:35)
[2023-11-15] MEDS ORDERED: PIPERACILLIN-TAZOBACTAM 3.375 GM VIAL IVPB SCH (06:00)
[2023-11-15] MEDS ORDERED: GABAPENTIN 800 MG PO SCH (09:00)
[2023-11-15 09:03] VITALS: BP 157/76; PULSE 96; RESP 20; TEMP 98.2
[2023-11-15] MEDS: carvediloL 6.25 MG TAB PO SCH (09:07)
[2023-11-15] MEDS: FUROSEMIDE 40 MG TAB PO SCH (09:07)
[2023-11-15] MEDS: PANTOPRAZOLE 40 MG TABLET PO SCH (09:08)
--- NOTE | 2023-11-15 11:01 | P.HPIM ---
History of Present Illness H&P Date: 11/15/23 Chief Complaint: Low hemoglobin level History and Physical and Discharge Summary: Patient refused to get off the phone during our rounding. Informed patient ,we would return to see him after seeing a few patients. Patient responded "okay." informed his nurse to transfuse 1 unit more packed RBCs, if patient stays, as he was already threatening to leave AMA per staff. Upon returning, discovered patient had already left AMA. The impression and plan of care has been dictated as directed. : I performed a history and examination of this patient, discussed the same with the dictator. I agree with the dictator's note ,documented as a scribe. Any additional findings or plans will be noted. Past Medical History Past Medical History: Coronary Artery Disease (CAD), Heart Failure, Hyperlipidemia, Hypertension, Vascular Disorder Additional Past Medical History / Comment(s): aortic aneusrym, herniated disc, peripheral vascular disease Last Myocardial Infarction Date:: 02/2023 History of Any Multi-Drug Resistant Organisms: None Reported Past Surgical History: Appendectomy, Coronary Bypass/CABG, Orthopedic Surgery Additional Past Surgical History / Comment(s): Right rotater cuff repair, L first and second toe removal Past Anesthesia/Blood Transfusion Reactions: No Reported Reaction Past Psychological History: No Psychological Hx Reported Smoking Status: Current every day smoker Past Alcohol Use History: Daily, Occasional Additional Past Alcohol Use History / Comment(s): has smoked since 18yrs. cutting down to quit. Past Drug Use History: Marijuana - Past Family History Father Family Medical History: Coronary Artery Disease (CAD) Additional Family Medical History / Comment(s): triple bypass Mother Family Medical History: Coronary Artery Disease (CAD), Dementia Medications and Allergies Home Medications Medication Instructions Recorded Confirmed Type Montelukast [Singulair] 10 mg PO HS #30 tab 02/22/16 11/14/23 Rx lisinopriL [Zestril] 2.5 mg PO HS #30 tab 02/22/16 11/14/23 Rx Loratadine [Claritin] 10 mg PO DAILY 09/08/20 11/14/23 History Atorvastatin [Lipitor] 80 mg PO HS 09/20/23 11/14/23 History Spironolactone [Aldactone] 25 mg PO DAILY 09/20/23 11/14/23 History Acetaminophen Tab [Tylenol] 650 mg PO Q6HR PRN tab 09/25/23 11/14/23 Rx Folic Acid 1 mg PO DAILY tab 09/25/23 11/14/23 Rx Furosemide [Lasix] 40 mg PO DAILY #30 tablet 09/25/23 11/14/23 Rx Magnesium Citrate and Oxide 500 mg PO DAILY #30 cap 09/25/23 11/14/23 Rx [Magnesium] Piperacillin-Tazobactam [Zosyn] 3.375 gm IVPB Q8HR #120 each 09/25/23 11/14/23 Rx Thiamine [Vitamin B-1] 100 mg PO DAILY tab 09/25/23 11/14/23 Rx polyethylene glycoL 3350 [Miralax] 17 gm PO DAILY PRN 10/05/23 11/14/23 History Multivitamins, Thera [Multivitamin 1 tab PO DAILY 10/10/23 11/14/23 History (formulary)] carvediloL [Coreg] 6.25 mg PO BID-W/MEALS 10/10/23 11/14/23 History Omeprazole [PriLOSEC] 40 mg PO BID 30 Days #60 cap 10/13/23 11/14/23 Rx Albuterol Nebulized [Ventolin 2.5 mg INHALATION RT-QID PRN 10/24/23 11/14/23 History Nebulized] Silver Sulfadiazine [Silver 1 applic TOPICAL BID 10/24/23 11/14/23 History Sulfadiazine 1%] Gabapentin [Neurontin] 800 mg PO TID 11/14/23 11/14/23 History Morphine Sulfate ER [Ms Contin] 15 mg PO BID 11/14/23 11/14/23 History Allergies Allergy/AdvReac Type Severity Reaction Status Date / Time No Known Allergies Allergy Verified 11/14/23 19:33 Physical Exam Vitals: Vital Signs Temp Pulse Pulse Resp BP BP Pulse Ox 11/15/23 08:17 98.2 F 96 20 157/76 97 11/15/23 04:06 97.9 F 93 18 148/80 94 L 11/14/23 23:04 98.1 F 80 20 136/78 96 11/14/23 21:05 98.2 F 82 18 140/80 97 11/14/23 20:45 98.3 F 80 18 143/76 96 11/14/23 20:39 98.1 F 83 16 148/74 96 11/14/23 20:34 98.2 F 81 16 147/71 85 L 11/14/23 19:00 91 16 153/89 98 11/14/23 18:00 88 16 143/73 99 11/14/23 17:30 87 14 150/77 99 11/14/23 17:23 87 16 138/70 100 11/14/23 16:46 98.5 F 89 18 143/71 100 Intake and Output 11/14/23 11/15/23 11/15/23 22:59 06:59 14:59 Intake Total 0 283 Output Total 500 Balance 0 -217 Intake: Blood Product 0 283 Rc Pheresis 2 As3 Unit 0 283 [id number] Output: Urine 500 Other: Voiding Method Urinal Weight 65.771 kg 65.771 kg Results CBC & Chem 7: 11/15/23 05:15 11/14/23 17:14 Labs: Abnormal Lab Results - Last 24 Hours (Table) 11/14/23 11/14/23 11/14/23 Range/Units 17:14 17:14 17:21 RBC 2.42 L (4.30-5.90) m/uL Hgb 6.6 L* D (13.0-17.5) gm/dL Hct 20.8 L (39.0-53.0) % RDW 16.5 H (11.5-15.5) % Lymphocytes # (1.0-4.8) k/uL PT (10.0-12.5) sec INR (<1.2) Sodium 134 L (137-145) mmol/L Creatinine 0.64 L (0.66-1.25) mg/dL Albumin 3.4 L (3.5-5.0) g/dL Crossmatch See Detail 11/14/23 11/15/23 Range/Units 17:27 05:15 RBC 2.61 L (4.30-5.90) m/uL Hgb 7.2 L (13.0-17.5) gm/dL Hct 22.4 L (39.0-53.0) % RDW 16.4 H (11.5-15.5) % Lymphocytes # 0.5 L (1.0-4.8) k/uL PT 13.4 H (10.0-12.5) sec INR 1.3 H (<1.2) Sodium (137-145) mmol/L Creatinine (0.66-1.25) mg/dL Albumin (3.5-5.0) g/dL Crossmatch
[2023-11-15] MEDS ORDERED: MONTELUKAST 10 MG TAB PO SCH (21:00)
[2023-11-15] MEDS ORDERED: ATORVASTATIN 80 MG TAB PO SCH (21:00)
== END 2023-11-15 10:04 | disposition left against medical advice (07) ==
LOC: EC 15:52 → 3SCARD 19:25 → 5NMEDONC 11-15 09:21
PROVIDERS: ADMIT Family Medicine; ATTEND Family Medicine
DX: D64.9 Anemia, unspecified (principal); Z53.29 Procedure and treatment not carried out because of patient's decision for other reasons; I73.9 Peripheral vascular disease, unspecified; I71.9 Aortic aneurysm of unspecified site, without rupture; Z79.82 Long term (current) use of aspirin; Z79.899 Other long term (current) drug therapy; Z87.891 Personal history of nicotine dependence
CPT/HCPCS: 96365; 96366; 36430; 99285; 36415; 86900; 86901; 80053; 83735; 85025; 85027; 85610; 85730; 86850; 86920; G0378 ×2; P9016; J2543

== ENCOUNTER → 2023-12-13 | Outpatient (CLI) | payer MEDICARE ==
[2023-12-13 09:48] LABS: African American GFR (CKD) >90 (>60 ml/min/1.73 sqM); Blood Urea Nitrogen 25 mg/dL (9-20); Non-African American GFR(CKD) 87 (>60 ml/min/1.73 sqM)
--- NOTE | 2023-12-14 13:51 | CT ---
EXAMINATION TYPE: CT chest w con DATE OF EXAM: 12/13/2023 COMPARISON: None HISTORY: Hypertension COPD CT DLP: 225.20 mGycm, Automated exposure control for dose reduction was used. CONTRAST: Performed injected with 0 mL of Isovue 300. TECHNIQUE: Axial images were obtained at 5 mm thick sections. Reconstructed images are reviewed on [employer] computer in the coronal plane. FINDINGS: Portion of the thyroid visualized is normal. No suspicious lung nodules or focal infiltrates are present. Some emphysematous changes are at the up per lung dawn. No enlarged mediastinal or hilar adenopathy is evident. The ascending aorta diameter at the level o f the main pulmonary artery is 3.2 cm. The main pulmonary artery diameter at the bifurcation is 2.[address] sections are obtained through the upper abdomen. There is a stented abdominal aortic aneur ysm. No obvious endovascular leak on these images. This is incompletely evaluated. There is a large c yst partially visualized. This may be renal in origin but is incompletely evaluated. IMPRESSION: 1. Mild emphysematous changes.
== END | disposition home or self-care (01) ==
LOC: RADCTMAIN 09:10
PROVIDERS: ATTEND Internal Medicine
DX: J44.9 Chronic obstructive pulmonary disease, unspecified (principal); I10 Essential (primary) hypertension; D41.10 Neoplasm of uncertain behavior of unspecified renal pelvis; J43.9 Emphysema, unspecified; M12.9 Arthropathy, unspecified; D50.9 Iron deficiency anemia, unspecified
CPT/HCPCS: 82565; 84520; 71260; 36415; Q9967

== ENCOUNTER → 2023-12-14 | Outpatient (CLI) | payer MEDICARE ==
--- NOTE | 2023-12-17 09:19 | MR ---
EXAMINATION TYPE: MR abdomen wo/w con DATE OF EXAM: 12/14/2023 10:46 AM CLINICAL INDICATION:Male, 73 years old with history of D41.10 COMPARISON: CT scan abdomen from 10/10/2023. TECHNIQUE: Multiplanar multi-sequence imaging was performed without contrast. Post contrast imaging was performed. Post IV contrast subtraction images were also submitted for review. IV Contrast: cc 6.5 cc Gadabutrol FINDINGS: LOWER CHEST: No gross irregularity. ABDOMEN Liver: No evidence for hepatic steatosis or cirrhosis. Gallbladder and Bile ducts: No evidence for ductal dilation, or biliary stricture or evidence of chol edocholithiasis. The gallbladder is within normal limits. Pancreas: No ductal dilation. No evidence for solid mass. Spleen: Normal for size. Adrenal glands: Unremarkable. Kidneys: * Right renal lesion is again demonstrated measuring 22 x 20 mm in the medial aspect of the lower as pect of the kidney which is partially exophytic and measures postcontrast enhancement. * Large left high T2 signal renal cyst measuring up to 8.9 x 8.2 cm. No obstructive uropathy. Stomach and Bowel: No evidence for bowel wall thickening or evidence for obstruction. Retroperitoneum/Peritoneum: No evidence of pneumoperitoneum or free fluid. Vasculature: Aortic aneurysm with stent graft remains present measuring up to 5.5 cm in transverse di mension extending at least 10.5 cm in caudocranial dimension.. Susceptibility limits evaluation. Musculoskeletal: The osseous structures appear intact. Lymph Nodes: No gross evidence for lymphadenopathy. Abdominal wall: Unremarkable. IMPRESSION: 1. 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 measur ing 21 x 22 mm. No lymphadenopathy at this time. 2. Large left renal sinus simple appearing cyst. 3. Infrarenal abdominal aortic aneurysm as seen on 10/10/2023.
== END | disposition home or self-care (01) ==
LOC: RADMRIMAIN 09:09
PROVIDERS: ATTEND Internal Medicine
DX: I71.43 Infrarenal abdominal aortic aneurysm, without rupture (principal); D41.10 Neoplasm of uncertain behavior of unspecified renal pelvis; N28.89 Other specified disorders of kidney and ureter
CPT/HCPCS: 74183; A9585

== ENCOUNTER 2024-03-11 09:35 | Emergency (ER) | payer MEDICARE ==
--- NOTE | 2024-03-11 10:19 | ED ---
Recheck HPI - General Chief Complaint: Recheck/Abnormal Lab/Rx Stated Complaint: ABN LABS Time Seen by Provider: 03/11/24 09:50 Source: patient, RN notes reviewed Mode of arrival: ambulatory Limitations: no limitations - History of Present Illness Initial Comments: This is a 73-year-old male presents to the emergency department chief complaint of low hemoglobin. Patient states that he was informed by his home nurse to report to the emergency department due to a hemoglobin of 6.8 that was drawn on . Currently patient is denying symptoms of shortness of breath, chest pain, dizziness, lightheadedness, fatigue, abnormal bruising. Patient is also denying hematochezia, dark or tarry stools, nausea, vomiting, hematemesis. Patient states that he has had to have blood transfusions in the past, is uncertain as to why he is having low hemoglobin. States that he has a history of peptic ulcer disease relatively 15 years ago. 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 States that at home wound care comes 3 times per week for evaluation. - Related Data Home Medications Medication Instructions Recorded Confirmed Loratadine [Claritin] 10 mg PO DAILY 09/08/20 11/14/23 Atorvastatin [Lipitor] 80 mg PO HS 09/20/23 11/14/23 Spironolactone [Aldactone] 25 mg PO DAILY 09/20/23 11/14/23 polyethylene glycoL 3350 [Miralax] 17 gm PO DAILY PRN 10/05/23 11/14/23 Multivitamins, Thera [Multivitamin 1 tab PO DAILY 10/10/23 11/14/23 (formulary)] carvediloL [Coreg] 6.25 mg PO BID-W/MEALS 10/10/23 11/14/23 Albuterol Nebulized [Ventolin 2.5 mg INHALATION RT-QID PRN 10/24/23 11/14/23 Nebulized] Silver Sulfadiazine [Silver 1 applic TOPICAL BID 10/24/23 11/14/23 Sulfadiazine 1%] Gabapentin [Neurontin] 800 mg PO TID 11/14/23 11/14/23 Morphine Sulfate ER [Ms Contin] 15 mg PO BID 11/14/23 11/14/23 Previous Rx's Medication Instructions Recorded Montelukast [Singulair] 10 mg PO HS #30 tab 02/22/16 lisinopriL [Zestril] 2.5 mg PO HS #30 tab 02/22/16 Acetaminophen Tab [Tylenol] 650 mg PO Q6HR PRN tab 09/25/23 Folic Acid 1 mg PO DAILY tab 09/25/23 Furosemide [Lasix] 40 mg PO DAILY #30 tablet 09/25/23 Magnesium Citrate and Oxide 500 mg PO DAILY #30 cap 09/25/23 [Magnesium] Piperacillin-Tazobactam [Zosyn] 3.375 gm IVPB Q8HR #120 each 09/25/23 Thiamine [Vitamin B-1] 100 mg PO DAILY tab 09/25/23 Omeprazole [PriLOSEC] 40 mg PO BID 30 Days #60 cap 10/13/23 Allergies Allergy/AdvReac Type Severity Reaction Status Date / Time No Known Allergies Allergy Verified 03/11/24 09:40 Review of Systems ROS Statement: Those systems with pertinent positive or pertinent negative responses have been documented in the HPI. ROS Other: All systems not noted in ROS Statement are negative. Past Medical History Past Medical History: Coronary Artery Disease (CAD), Heart Failure, Hyperlipidemia, Hypertension, Vascular Disorder Additional Past Medical History / Comment(s): aortic aneusrym, herniated disc, peripheral vascular disease Last Myocardial Infarction Date:: 02/2023 History of Any Multi-Drug Resistant Organisms: None Reported Past Surgical History: Appendectomy, Coronary Bypass/CABG, Orthopedic Surgery Additional Past Surgical History / Comment(s): Right rotater cuff repair, L first and second toe removal. LBKA Past Anesthesia/Blood Transfusion Reactions: No Reported Reaction Past Psychological History: No Psychological Hx Reported Smoking Status: Current every day smoker Past Alcohol Use History: Daily, Occasional Past Drug Use History: Marijuana - Past Family History Father Family Medical History: Coronary Artery Disease (CAD) Additional Family Medical History / Comment(s): triple bypass Mother Family Medical History: Coronary Artery Disease (CAD), Dementia General Exam Limitations: no limitations General appearance: alert, in no apparent distress Head exam: Present: atraumatic, normocephalic, normal inspection Eye exam: Present: normal appearance, PERRL, EOMI. Absent: scleral icterus, conjunctival injection, periorbital swelling ENT exam: Present: normal exam, mucous membranes moist Neck exam: Present: normal inspection. Absent: tenderness, meningismus, lymphadenopathy Respiratory exam: Present: normal lung sounds bilaterally. Absent: respiratory distress, wheezes, rales, rhonchi, stridor Cardiovascular Exam: Present: regular rate, normal rhythm, systolic murmur. Absent: diastolic murmur, rubs, gallop, clicks GI/Abdominal exam: Present: soft, normal bowel sounds. Absent: distended, tenderness, guarding, rebound, rigid Left Knee exam: Present: deformity (amputation below the knee). Absent: normal inspection Back exam: Present: normal inspection Neurological exam: Present: alert, oriented X3, CN II-XII intact Psychiatric exam: Present: normal affect, normal mood Skin exam: Present: warm, dry, intact, normal color. Absent: rash Course Vital Signs 03/11/24 03/11/24 09:38 11:49 Temperature 98.1 F 97.8 F Pulse Rate 103 H 105 H Respiratory 20 18 Rate Blood Pressure 128/63 102/52 O2 Sat by Pulse 100 100 Oximetry Medical Decision Making - Medical Decision Making Was pt. sent in by a medical professional or institution (Dr. PA, DEVELOPMENT ENG, urgent care, hospital, or shelter...) When possible be specific @ -Advised by his at home nurse to report to the emergency department due to a low hemoglobin less than 7. Did you speak to anyone other than the patient for history (EMS, parent, family, police, friend...)? What history was obtained from this source @ -No Did you review nursing and triage notes (agree or disagree)? Why? @ -I reviewed and agree with nursing and triage notes Were old charts reviewed (outside hosp., previous admission, EMS record, old EKG, old radiological studies, urgent care reports/EKG's, shelter records)? Report findings @ -I reviewed the patient's chart note from 11/14/2023 he reported to the emergency department with a low hemoglobin of 6.4 and was admitted to the hospital for anemia. Differential Diagnosis (chest pain, altered mental status, abdominal pain women, abdominal pain men, vaginal bleeding, weakness, fever, dyspnea, syncope, headache, dizziness, GI bleed, back pain, seizure, CVA, palpatations, mental health, musculoskeletal)? @ -EMEA, anemia of chronic disease, gastritis, peptic ulcer disease, diverticulosis, this is not meant to be an all-inclusive list. EKG interpreted by me (3pts min.). @ -None X-rays interpreted by me (1pt min.). @ -None done CT interpreted by me (1pt min.). @ -None done U/S interpreted by me (1pt. min.). @ -None done What testing was considered but not performed or refused? (CT, X-rays, U/S, labs)? Why? @ -None What meds were considered but not given or refused? Why? @ -None Did you discuss the management of the patient with other professionals (nathalie lopez i.eCastro Langley, PA, DEVELOPMENT ENG, lab, RT, psych nurse, sr. social media & mobile manager, dynamometer mechanic, teacher, aoc operations intelligence officer, nurse case management)? Give summary @ -No Was smoking cessation discussed for >3mins.? @ -No Was critical care preformed (if so, how long)? @ -No Were there social determinants of health that impacted care today? How? (Homelessness, low income, unemployed, alcoholism, drug addiction, transportation, low edu. Level, literacy, decrease access to med. care, detention, rehab)? @ -No Was there de-escalation of care discussed even if they declined (Discuss DNR or withdrawal of care, Hospice)? DNR status @ -No What co-morbidities impacted this encounter? (DM, HTN, Smoking, COPD, CAD, Cancer, CVA, ARF, Chemo, Hep., AIDS, mental health diagnosis, sleep apnea, morbid obesity)? @ -None Was patient admitted / discharged? Hospital course, mention meds given and route, prescriptions, significant lab abnormalities, going to OR and other pertinent info. @ -Discharge. 73-year-old male with chief complaint of abnormal labs. Patient was noted to have a hemoglobin of 6.8 that was drawn on . On physical examination patient is resting comfortably in the room and is asymptomatic. He will be evaluated via laboratory studies. On review of labs patient's hemoglobin today is 7.2. Reviewed patient's previous labs noted that he is chronically anemic. Due to patient being asymptomatic at this time and not expressing symptoms concerning for GI bleed, patient is on blood thinners, hemoglobin is arranged for blood transfusion he will be discharged home in stable condition. Recommend that patient follows up with his primary care provider in the next 1 to 3 days for further evaluation of chronic anemia. All questions answered at bedside and strict return parameters have been discussed with the patient he is verbalized understanding. Case discussed with Dr. Siegel Undiagnosed new problem with uncertain prognosis? @ -No Drug Therapy requiring intensive monitoring for toxicity (Heparin, Nitro, Insulin, Cardizem)? @ -No Were any procedures done? @ -No Diagnosis/symptom? @ -chronic anemia Acute, or Chronic, or Acute on Chronic? @ -Acute on chronic Uncomplicated (without systemic symptoms) or Complicated (systemic symptoms)? @ -uncomplicated Side effects of treatment? @ -No Exacerbation, Progression, or Severe Exacerbation? @ -No Poses a threat to life or bodily function? How? (Chest pain, [place], [place], pneumonia, PE, COPD, DKA, ARF, appy, cholecystitis, CVA, Diverticulitis, Homicidal, Suicidal, threat to staff... and all critical care pts) @ -No - Lab Data Result diagrams: 03/11/24 10:07 03/11/24 10:07 Lab Results 03/11/24 03/11/24 03/11/24 Range/Units 10:07 10:07 10:07 WBC 7.4 (3.8-10.6) k/uL RBC 2.76 L (4.30-5.90) m/uL Hgb 7.2 L (13.0-17.5) gm/dL Hct 24.9 L (39.0-53.0) % MCV 90.5 (80.0-100.0) fL MCH 26.2 (25.0-35.0) pg MCHC 28.9 L (31.0-37.0) g/dL RDW 16.7 H (11.5-15.5) % Plt Count 418 (150-450) k/uL MPV 8.0 Neutrophils % 82 % Lymphocytes % 6 % Monocytes % 6 % Eosinophils % 3 % Basophils % 1 % Neutrophils # 6.0 (1.3-7.7) k/uL Lymphocytes # 0.5 L (1.0-4.8) k/uL Monocytes # 0.5 (0-1.0) k/uL Eosinophils # 0.2 (0-0.7) k/uL Basophils # 0.0 (0-0.2) k/uL Hypochromasia Marked Poikilocytosis Slight Anisocytosis Slight PT 13.6 H (10.0-12.5) sec INR 1.3 H (<1.2) APTT 38.9 H (22.0-30.0) sec Sodium 135 L (137-145) mmol/L Potassium 3.9 (3.5-5.1) mmol/L Chloride 106 (98-107) mmol/L Carbon Dioxide 24 (22-30) mmol/L Anion Gap 5 mmol/L BUN 8 L (9-20) mg/dL Creatinine 0.49 L (0.66-1.25) mg/dL Est GFR (CKD-EPI)AfAm >90 (>60 ml/min/1.73 sqM) Est GFR (CKD-EPI)NonAf >90 (>60 ml/min/1.73 sqM) Glucose 93 (74-99) mg/dL Calcium 8.9 (8.4-10.2) mg/dL Magnesium 1.8 (1.6-2.3) mg/dL Total Bilirubin 0.2 (0.2-1.3) mg/dL ALT 21 (4-49) U/L Alkaline Phosphatase 73 (38-126) U/L Total Protein 5.4 L (6.3-8.2) g/dL Albumin 3.0 L (3.5-5.0) g/dL Disposition Clinical Impression: Chronic anemia Disposition: HOME SELF-CARE Condition: Good Instructions (If sedation given, give patient instructions): Anemia (ED) Additional Instructions: Return to the emergency department if your symptoms worsen or improve. Recommend they follow-up with your primary care provider in the next 2 to 3 days for further evaluation of anemia. Is patient prescribed a controlled substance at d/c from ED?: No Referrals: Maggy Siegel DO [Primary Care Provider] - 1-2 days Time of Disposition: 11:36
[2024-03-11 10:54] LABS: Anisocytosis Slight; Basophils % (A) 1 %; Eosinophils # (A) 0.2 k/uL (0-0.7); Eosinophils % (A) 3 %; HCT 24.9 % (39.0-53.0); HGB 7.2 gm/dL (13.0-17.5); Hypochromasia Marked; Lymphocytes # (A) 0.5 k/uL (1.0-4.8); Lymphocytes % (A) 6 %; MCH 26.2 pg (25.0-35.0); MCHC 28.9 g/dL (31.0-37.0); MCV 90.5 fL (80.0-100.0); Monocytes # (A) 0.5 k/uL (0-1.0); Monocytes % (A) 6 %; Neutrophils % (A) 82 %; Platelet Count 418 k/uL (150-450); Poikilocytosis Slight; RBC 2.76 m/uL (4.30-5.90); RDW 16.7 % (11.5-15.5); WBC 7.4 k/uL (3.8-10.6)
[2024-03-11 11:05] LABS: ALT 21 U/L (4-49); African American GFR (CKD) >90 (>60 ml/min/1.73 sqM); Alkaline Phosphatase 73 U/L (38-126); Anion Gap 5 mmol/L; Blood Urea Nitrogen 8 mg/dL (9-20); Calcium 8.9 mg/dL (8.4-10.2); Carbon Dioxide 24 mmol/L (22-30); Chloride 106 mmol/L (98-107); Glucose 93 mg/dL (74-99); Magnesium 1.8 mg/dL (1.6-2.3); Non-African American GFR(CKD) >90 (>60 ml/min/1.73 sqM); Potassium 3.9 mmol/L (3.5-5.1); Sodium 135 mmol/L (137-145); Total Bilirubin 0.2 mg/dL (0.2-1.3); Total Protein 5.4 g/dL (6.3-8.2)
[2024-03-11 11:06] LABS: INR 1.3 (<1.2); Partial Thromboplastin Time 38.9 sec (22.0-30.0); Prothrombin Time 13.6 sec (10.0-12.5)
[2024-03-11 11:52] VITALS: BP 102/52; PULSE 105; RESP 18; TEMP 97.8
[2024-03-11 17:16] LABS: AST 24 U/L (17-59)
== END 2024-03-11 11:52 | disposition home or self-care (01) ==
LOC: EC 09:35
DX: D64.9 Anemia, unspecified (principal); F17.200 Nicotine dependence, unspecified, uncomplicated
CPT/HCPCS: 36415; 80053; 83735; 85025; 85610; 85730; 86850; 86900; 86901; 99284

== ENCOUNTER 2024-04-12 13:08 | Emergency (ER) | payer MEDICARE ==
--- NOTE | 2024-04-12 13:36 | ED ---
Recheck HPI - General Chief Complaint: Recheck/Abnormal Lab/Rx Stated Complaint: Infusion-sent by PCP Time Seen by Provider: 04/12/24 13:34 Source: patient, RN notes reviewed Mode of arrival: wheelchair Limitations: no limitations - History of Present Illness Initial Comments: This is a 73-year-old male who presents to the emergency department for a blood transfusion. Patient had blood work done yesterday demonstrating a low hemoglobin and he was advised to come to the emergency department for a transfusion. Patient states that he has a history of low hemoglobin but is unsure why and has required transfusions in the past. Denies any weakness, chest pain, or shortness of breath and states that he otherwise has no complaints. MD Complaint: abnormal lab - Related Data Home Medications Medication Instructions Recorded Confirmed Loratadine [Claritin] 10 mg PO DAILY 09/08/20 03/27/24 Atorvastatin [Lipitor] 80 mg PO HS 09/20/23 03/27/24 Spironolactone [Aldactone] 25 mg PO DAILY 09/20/23 03/27/24 polyethylene glycoL 3350 [Miralax] 17 gm PO DAILY PRN 10/05/23 03/27/24 Multivitamins, Thera [Multivitamin 1 tab PO DAILY 10/10/23 03/27/24 (formulary)] carvediloL [Coreg] 6.25 mg PO BID-W/MEALS 10/10/23 03/27/24 Albuterol Nebulized [Ventolin 2.5 mg INHALATION RT-QID PRN 10/24/23 03/27/24 Nebulized] Silver Sulfadiazine [Silver 1 applic TOPICAL BID 10/24/23 03/27/24 Sulfadiazine 1%] Gabapentin [Neurontin] 800 mg PO TID 11/14/23 03/27/24 Morphine Sulfate ER [Ms Contin] 15 mg PO BID 11/14/23 03/27/24 Previous Rx's Medication Instructions Recorded Montelukast [Singulair] 10 mg PO HS #30 tab 02/22/16 lisinopriL [Zestril] 2.5 mg PO HS #30 tab 02/22/16 Acetaminophen Tab [Tylenol] 650 mg PO Q6HR PRN tab 09/25/23 Folic Acid 1 mg PO DAILY tab 09/25/23 Furosemide [Lasix] 40 mg PO DAILY #30 tablet 09/25/23 Magnesium Citrate and Oxide 500 mg PO DAILY #30 cap 09/25/23 [Magnesium] Piperacillin-Tazobactam [Zosyn] 3.375 gm IVPB Q8HR #120 each 09/25/23 Thiamine [Vitamin B-1] 100 mg PO DAILY tab 09/25/23 Omeprazole [PriLOSEC] 40 mg PO BID 30 Days #60 cap 10/13/23 Allergies Allergy/AdvReac Type Severity Reaction Status Date / Time No Known Allergies Allergy Verified 04/12/24 13:49 Review of Systems ROS Statement: Those systems with pertinent positive or pertinent negative responses have been documented in the HPI. ROS Other: All systems not noted in ROS Statement are negative. Past Medical History Past Medical History: Coronary Artery Disease (CAD), Heart Failure, Hyperlipidemia, Hypertension, Vascular Disorder Additional Past Medical History / Comment(s): aortic aneusrym, herniated disc, peripheral vascular disease Last Myocardial Infarction Date:: 02/2023 History of Any Multi-Drug Resistant Organisms: None Reported Past Surgical History: Appendectomy, Coronary Bypass/CABG, Orthopedic Surgery Additional Past Surgical History / Comment(s): Right rotater cuff repair, L first and second toe removal. LBKA Past Anesthesia/Blood Transfusion Reactions: No Reported Reaction Smoking Status: Current every day smoker - Past Family History Father Family Medical History: Coronary Artery Disease (CAD) Additional Family Medical History / Comment(s): triple bypass Mother Family Medical History: Coronary Artery Disease (CAD), Dementia General Exam Limitations: no limitations General appearance: alert, in no apparent distress Head exam: Present: atraumatic, normocephalic, normal inspection Respiratory exam: Present: normal lung sounds bilaterally. Absent: respiratory distress, wheezes, rales, rhonchi, stridor Cardiovascular Exam: Present: regular rate, normal rhythm, normal heart sounds. Absent: systolic murmur, diastolic murmur, rubs, gallop, clicks Neurological exam: Present: alert, oriented X3, CN II-XII intact Psychiatric exam: Present: normal affect, normal mood Skin exam: Present: warm, dry, pallor Course Vital Signs 04/12/24 13:46 Temperature 98.0 F Pulse Rate 122 H Respiratory 16 Rate Blood Pressure 93/47 O2 Sat by Pulse 100 Oximetry Medical Decision Making - Medical Decision Making This is a 73 year old male who presents to the emergency department for low hemoglobin. Was pt. sent in by a medical professional or institution? @ -No Did you speak to anyone other than the patient for history? @ -No Did you review nursing and triage notes? @ -Yes, and I agree, it is accurate with regards to the patient's symptoms. Were old charts reviewed? @ -Hemoglobin from 04/11/2024 which was 6.6. Differential Diagnosis? @ -Differential low hemoglobin: Anemia, blood loss, medications, chronic illness, this is not meant to be an all-inclusive list. EKG interpreted by me (3pts min.)? @ -Not obtained X-rays interpreted by me (1pt min.)? @ -Not obtained CT interpreted by me (1pt min.)? @ -Not obtained U/S interpreted by me (1pt. min.)? @ -Not obtained What testing was considered but not performed? (CT, X-rays, U/S, labs)? Why? @ -EKG, CBC, CMP, coags, and type and screen, however the patient left AMA before they could be done. What meds were considered but not given? Why? @ -None Did you discuss the management of the patient with other professionals? @ -No Did you reconcile home meds? @ -No Was smoking cessation discussed for >3mins.? @ -No Was critical care preformed (if so, how long)? @ -No Were there social determinants of health that impacted care today? How? (Homelessness, low income, unemployed, alcoholism, drug addiction, transportation, low edu. Level, literacy, decrease access to med. care, [place] [facility], rehab)? @ -No Was there de-escalation of care discussed even if they declined? (Discuss DNR or withdrawal of care, Hospice)? @ -No What co-morbidities impacted this encounter? (DM, HTN, Smoking, COPD, CAD, Cancer, CVA, Hep., AIDS, mental health diagnosis, sleep apnea, morbid obesity)? @ -Anemia Was patient admitted / discharged? @ -Lab work including a CBC, CMP, coags, and a type and screen were ordered. However, after the patient was brought back to the emergency department the nursing staff had to attend to a critical patient. The patient subsequently became frustrated with the wait time and requested to leave AMA before any testing or treatment could be performed. Undiagnosed new problem with uncertain prognosis? @ -None Drug Therapy requiring intensive monitoring for toxicity (Heparin, Nitro, Insulin, Cardizem)? @ -None Were any procedures done? @ -None Diagnosis/symptom? @ -Anemia Acute, or Chronic, or Acute on Chronic? @ -Chronic Uncomplicated (without systemic symptoms) or Complicated (systemic symptoms)? @ -Uncomplicated Side effects of treatment? @ -None Exacerbation, Progression, or Severe Exacerbation] @ -Exacerbation Poses a threat to life or bodily function? @ -If this gets worse it can become life threatening Disposition Clinical Impression: Anemia Disposition: LEFT AGAINST MEDICAL ADVICE Referrals: Yusuf Lisa MD [Primary Care Provider] - 1-2 days
[2024-04-12 13:49] VITALS: BP 93/47; PULSE 122; RESP 16; TEMP 98
== END 2024-04-12 16:50 | disposition left against medical advice (07) ==
LOC: EC 13:08
DX: D64.9 Anemia, unspecified (principal); F17.200 Nicotine dependence, unspecified, uncomplicated; Z53.29 Procedure and treatment not carried out because of patient's decision for other reasons
CPT/HCPCS: 99282; 99283

== ENCOUNTER 2024-06-25 15:02 | Inpatient (IN) | payer MEDICARE ==
[2024-06-25] MEDS: SODIUM CHLORIDE 0.9% 1,000 ML IV ONE (17:29)
[2024-06-25] MEDS: AMPICILLIN-SULBACTAM 3 GM in SODIUM CHLORIDE 0.9% 100 ML IVPB STA (17:30)
[2024-06-25 17:42] LABS: Anisocytosis Slight; Basophils % (A) 1 %; Eosinophils # (A) 0.2 k/uL (0-0.7); Eosinophils % (A) 2 %; HCT 32.8 % (39.0-53.0); HGB 9.4 gm/dL (13.0-17.5); Hypochromasia Marked; Lymphocytes # (A) 0.4 k/uL (1.0-4.8); Lymphocytes % (A) 6 %; MCH 24.6 pg (25.0-35.0); MCHC 28.6 g/dL (31.0-37.0); MCV 85.9 fL (80.0-100.0); Mean Platelet Volume 7.4; Monocytes # (A) 0.5 k/uL (0-1.0); Monocytes % (A) 7 %; Neutrophils # (A) 5.8 k/uL (1.3-7.7); Neutrophils % (A) 81 %; Platelet Count 290 k/uL (150-450); Poikilocytosis Moderate; RBC 3.82 m/uL (4.30-5.90); WBC 7.2 k/uL (3.8-10.6)
[2024-06-25 18:00] LABS: Potassium 3.4 mmol/L (3.5-5.1)
--- NOTE | 2024-06-25 18:02 | XR ---
EXAMINATION TYPE: XR foot complete RT DATE OF EXAM: 06/25/2024 5:44 PM CLINICAL INDICATION: Male, 74 years old with history of osteomyelitis; COMPARISON: 01/11/2018 TECHNIQUE: XR foot complete RT examined in the AP, oblique, and lateral projections. FINDINGS: Interval surgical changes of the fifth digit with amputation at the metatarsal shaft. Addit ional surgical change of the first digit of the proximal phalanx with amputation through the mid prox imal phalanx. Nonvisualization of the second digit distal phalanx with erosion of the middle phalanx of the second digit. No evidence of fracture. Calcaneal Achilles enthesophyte formation. Soft tissue swelling throughout the forefoot. IMPRESSION: Osseous erosion of the second digit middle phalanx with nonvisualization of the distal phalanx. Corre late for osteomyelitis. [facility], , 06/25/2024 5:59 PM
[2024-06-25 18:03] LABS: ALT 18 U/L (4-49); AST 25 U/L (17-59); African American GFR (CKD) >90 (>60 ml/min/1.73 sqM); Albumin 3.5 g/dL (3.5-5.0); Alkaline Phosphatase 79 U/L (38-126); Anion Gap 6 mmol/L; Blood Urea Nitrogen 18 mg/dL (9-20); C Reactive Protein 1.8 mg/dL (<1.0); Carbon Dioxide 25 mmol/L (22-30); Chloride 110 mmol/L (98-107); Glucose 103 mg/dL (74-99); Non-African American GFR(CKD) >90 (>60 ml/min/1.73 sqM); Sodium 141 mmol/L (137-145); Total Bilirubin 0.6 mg/dL (0.2-1.3); Total Protein 6.2 g/dL (6.3-8.2)
--- NOTE | 2024-06-25 19:10 | ED ---
General Adult HPI - General Chief complaint: Recheck/Abnormal Lab/Rx Stated complaint: R foot pain/infection Time Seen by Provider: 06/25/24 15:20 Source: patient Mode of arrival: ambulatory Limitations: no limitations - History of Present Illness Initial comments: 74-year-old male presents emergency department for right foot pain and swelling. Patient has history of peripheral vascular disease with amputation of the left lower extremity. Reports that recently he started having some ulcerations to the right lower extremity. He does have a home care nurse that has been wrapping his leg. He has been going through his primary care office who was going to refer him to Dr. Galo. He was told that he needed a PICC line. Patient is not currently on any antibiotics. Home care nurse thought that his lower extremity was so bad today that he needed prompt evaluation. Patient also makes report of low hemoglobin counts. States he was hospitalized last week for low hemoglobin and had an EGD and colonoscopy which could not identify the source of his bleeding. He has not had any follow-up labs since then. No fevers. No other alleviating, precipitating modifying factors - Related Data Home Medications Medication Instructions Recorded Confirmed Loratadine [Claritin] 10 mg PO DAILY 09/08/20 06/25/24 Atorvastatin [Lipitor] 80 mg PO HS 09/20/23 06/25/24 Spironolactone [Aldactone] 25 mg PO DAILY 09/20/23 06/25/24 polyethylene glycoL 3350 [Miralax] 17 gm PO DAILY PRN 10/05/23 06/25/24 Multivitamins, Thera [Multivitamin 1 tab PO DAILY 10/10/23 06/25/24 (formulary)] carvediloL [Coreg] 6.25 mg PO DAILY 10/10/23 06/25/24 Albuterol Nebulized [Ventolin 2.5 mg INHALATION RT-QID PRN 10/24/23 06/25/24 Nebulized] Clopidogrel [Plavix] 75 mg PO DAILY 06/25/24 06/25/24 Gabapentin 600 mg PO TID 06/25/24 06/25/24 Omeprazole 20 mg PO DAILY 06/25/24 06/25/24 Previous Rx's Medication Instructions Recorded lisinopriL [Zestril] 2.5 mg PO HS #30 tab 02/22/16 Acetaminophen Tab [Tylenol] 650 mg PO Q6HR PRN tab 09/25/23 Folic Acid 1 mg PO DAILY tab 09/25/23 Furosemide [Lasix] 40 mg PO DAILY #30 tablet 09/25/23 Magnesium Citrate and Oxide 500 mg PO DAILY #30 cap 09/25/23 [Magnesium] Thiamine [Vitamin B-1] 100 mg PO DAILY tab 09/25/23 Allergies Allergy/AdvReac Type Severity Reaction Status Date / Time No Known Allergies Allergy Verified 06/25/24 20:37 Review of Systems ROS Statement: Those systems with pertinent positive or pertinent negative responses have been documented in the HPI. ROS Other: All systems not noted in ROS Statement are negative. Past Medical History Past Medical History: Coronary Artery Disease (CAD), Heart Failure, Hyperlipidemia, Hypertension, Vascular Disorder Additional Past Medical History / Comment(s): aortic aneusrym, herniated disc, peripheral vascular disease, anemia Last Myocardial Infarction Date:: 02/2023 History of Any Multi-Drug Resistant Organisms: None Reported Past Surgical History: Appendectomy, Coronary Bypass/CABG, Orthopedic Surgery Additional Past Surgical History / Comment(s): Right rotater cuff repair, L first and second toe removal. LBKA Past Anesthesia/Blood Transfusion Reactions: No Reported Reaction Past Psychological History: No Psychological Hx Reported Smoking Status: Current every day smoker - Past Family History Father Family Medical History: Coronary Artery Disease (CAD) Additional Family Medical History / Comment(s): triple bypass Mother Family Medical History: Coronary Artery Disease (CAD), Dementia General Exam Limitations: no limitations General appearance: alert, appears intoxicated Head exam: Present: atraumatic Eye exam: Present: normal appearance Respiratory exam: Present: normal lung sounds bilaterally. Absent: respiratory distress, wheezes, rales, rhonchi, stridor Cardiovascular Exam: Present: regular rate, normal rhythm, normal heart sounds. Absent: systolic murmur, diastolic murmur, rubs, gallop, clicks GI/Abdominal exam: Present: soft, normal bowel sounds. Absent: distended, tenderness, guarding, rebound, rigid Extremities exam: Present: other (BKA left leg with no ulcerations. Multiple areas of ulceration noted on the right toes. Patient has had previous partial resection of great toe and fifth toe. He has ulceration noted to the first second and third toes. Ulcerations measure 1.5 cm in size with green purulence. There are maggots) Neurological exam: Present: alert, oriented X3, CN II-XII intact Course Vital Signs 06/25/24 06/25/24 06/25/24 15:17 20:30 21:21 Temperature 98.5 F 98.4 F Pulse Rate 65 60 66 Respiratory 22 18 18 Rate Blood Pressure 95/58 116/57 115/50 O2 Sat by Pulse 97 97 Oximetry Medical Decision Making - Medical Decision Making Was pt. sent in by a medical professional or institution (ADOLPH Langley, GROMMET MACHINE OPERATOR, urgent care, hospital, or retirement...) When possible be specific @ -Patient was told to come in by his home care nurse Did you speak to anyone other than the patient for history (EMS, parent, family, police, friend...)? What history was obtained from this source @ -No Did you review nursing and triage notes (agree or disagree)? Why? @ -I reviewed and agree with nursing and triage notes Were old charts reviewed (outside hosp., previous admission, EMS record, old EKG, old radiological studies, urgent care reports/EKG's, retirement records)? Report findings @ -No old charts were reviewed Differential Diagnosis (chest pain, altered mental status, abdominal pain women, abdominal pain men, vaginal bleeding, weakness, fever, dyspnea, syncope, headache, dizziness, GI bleed, back pain, seizure, CVA, palpatations, mental health, musculoskeletal)? @ -Gangrene, cellulitis, diabetic ulceration EKG interpreted by me (3pts min.). @ -Yes and demonstrates sinus rhythm with rate of 62. Parable 193. QRS 134. QTc of 455. No acute ST segment elevations or depressions X-rays interpreted by me (1pt min.). @ -Yes and demonstrates possible osteomyelitis CT interpreted by me (1pt min.). @ -None done U/S interpreted by me (1pt. min.). @ -None done What testing was considered but not performed or refused? (CT, X-rays, U/S, labs)? Why? @ -None What meds were considered but not given or refused? Why? @ -None Did you discuss the management of the patient with other professionals (professionals i.e. ADOLPH Langley, GROMMET MACHINE OPERATOR, lab, RT, psych nurse, social work program coordinator, business lawyer, teacher, sales and service officer, therapeutic case manager)? Give summary @ -Spoke with Dr. Mcdaniel for admission Was smoking cessation discussed for >3mins.? @ -No Was critical care preformed (if so, how long)? @ -No Were there social determinants of health that impacted care today? How? (Homelessness, low income, unemployed, alcoholism, drug addiction, transportation, low edu. Level, literacy, decrease access to med. care, shelter, rehab)? @ -No Was there de-escalation of care discussed even if they declined (Discuss DNR or withdrawal of care, Hospice)? DNR status @ -No What co-morbidities impacted this encounter? (DM, HTN, Smoking, COPD, CAD, Cancer, CVA, ARF, Chemo, Hep., AIDS, mental health diagnosis, sleep apnea, morbid obesity)? @ -Peripheral vascular disease Was patient admitted / discharged? Hospital course, mention meds given and route, prescriptions, significant lab abnormalities, going to OR and other pertinent info. @ -Upon arrival patient seen and evaluated in hallway 19. Thorough history and physical exam was performed. I did undress the patient's wound. He does have multiple areas of ulceration on his right foot. There are maggots present. I did change the patient's dressing. Laboratory studies are conducted. X-ray was performed which demonstrates possible osteomyelitis. This is discussed with the patient. Patient was to be admitted at this time on antibiotic. I did initiate Unasyn. Patient will be admitted with infectious disease and vascular surgery. Patient sent to the floor in stable condition Undiagnosed new problem with uncertain prognosis? @ -No Drug Therapy requiring intensive monitoring for toxicity (Heparin, Nitro, Insulin, Cardizem)? @ -No Were any procedures done? @ -No Diagnosis/symptom? @ -Multiple right foot wounds, cellulitis with gangrene, history of peripheral vascular disease Acute, or Chronic, or Acute on Chronic? @ -Acute Uncomplicated (without systemic symptoms) or Complicated (systemic symptoms)? @ -Complicated Side effects of treatment? @ -No Exacerbation, Progression, or Severe Exacerbation? @ -No Poses a threat to life or bodily function? How? (Chest pain, [place], [place], pneumonia, PE, COPD, DKA, ARF, appy, cholecystitis, CVA, Diverticulitis, Homicidal, Suicidal, threat to staff... and all critical care pts) @ -Yes as there is a good chance that the patient may lose his limb due to this infection - Lab Data Result diagrams: 06/26/24 11:45 06/26/24 06:20 Lab Results 06/25/24 06/25/24 06/25/24 Range/Units 16:18 16:18 16:18 WBC 7.2 (3.8-10.6) k/uL RBC 3.82 L (4.30-5.90) m/uL Hgb 9.4 L (13.0-17.5) gm/dL Hct 32.8 L (39.0-53.0) % MCV 85.9 (80.0-100.0) fL MCH 24.6 L (25.0-35.0) pg MCHC 28.6 L (31.0-37.0) g/dL RDW 17.0 H (11.5-15.5) % Plt Count 290 (150-450) k/uL MPV 7.4 Neutrophils % 81 % Lymphocytes % 6 % Monocytes % 7 % Eosinophils % 2 % Basophils % 1 % Neutrophils # 5.8 (1.3-7.7) k/uL Lymphocytes # 0.4 L (1.0-4.8) k/uL Monocytes # 0.5 (0-1.0) k/uL Eosinophils # 0.2 (0-0.7) k/uL Basophils # 0.0 (0-0.2) k/uL Hypochromasia Marked Poikilocytosis Moderate Anisocytosis Slight ESR 22 H (0-20) mm/Hr Sodium 141 (137-145) mmol/L Potassium 3.4 L (3.5-5.1) mmol/L Chloride 110 H (98-107) mmol/L Carbon Dioxide 25 (22-30) mmol/L Anion Gap 6 mmol/L BUN 18 (9-20) mg/dL Creatinine 0.69 (0.66-1.25) mg/dL Est GFR (CKD-EPI)AfAm >90 (>60 ml/min/1.73 sqM) Est GFR (CKD-EPI)NonAf >90 (>60 ml/min/1.73 sqM) Glucose 103 H (74-99) mg/dL Plasma Lactic Acid William 1.5 (0.7-2.0) mmol/L Calcium 9.0 (8.4-10.2) mg/dL Total Bilirubin 0.6 (0.2-1.3) mg/dL AST 25 (17-59) U/L ALT 18 (4-49) U/L Alkaline Phosphatase 79 (38-126) U/L C-Reactive Protein 1.8 H (<1.0) mg/dL Total Protein 6.2 L (6.3-8.2) g/dL Albumin 3.5 (3.5-5.0) g/dL Disposition Clinical Impression: Gangrene of right foot, Osteomyelitis Disposition: ADMITTED IP TO THIS [facility] Condition: Serious Is patient prescribed a controlled substance at d/c from ED?: No Time of Disposition: 19:15 Decision to Admit Reason: Admit from EC Decision Date: 06/25/24 Decision Time: 19:15
[2024-06-25] MEDS ORDERED: NALOXONE 0.4 MG/ML 1 ML VIAL IV PRN (19:15)
[2024-06-25] MEDS ORDERED: ALBUTEROL NEBULIZED 2.5 MG/3 ML INHALATION PRN (22:32)
[2024-06-25] MEDS: GABAPENTIN 300 MG CAP PO SCH (23:10)
[2024-06-25] MEDS: ACETAMINOPHEN TAB 325 MG TAB PO PRN (23:11)
[2024-06-25] MEDS: ATORVASTATIN 80 MG TAB PO SCH (23:12)
[2024-06-26 03:57] LABS: Erythrocyte Sedimentation Rate 22 mm/Hr (0-20)
[2024-06-26 08:44] LABS: BUN/Creat Ratio 16.29 Ratio (12.00-20.00); Blood Urea Nitrogen 11.4 mg/dL (9.0-27.0); Carbon Dioxide 23.3 mmol/L (21.6-31.8); Chloride 110 mmol/L (96-109); Glucose 79 mg/dL (70-110); Potassium 3.3 mmol/L (3.5-5.5); Sodium 142 mmol/L (135-145)
[2024-06-26 08:46] LABS: Basophils # (A) 0.07 X 10*3/uL (0.00-0.10); Basophils % (A) 0.7 %; Eosinophils # (A) 0.27 X 10*3/uL (0.04-0.35); Eosinophils % (A) 2.6 %; HCT 27.4 % (39.6-50.0); HGB 7.8 g/dL (13.0-17.0); Lymphocytes # (A) 0.43 X 10*3/uL (0.90-5.00); Lymphocytes % (A) 4.2 %; MCH 23.9 pg (27.0-32.0); MCHC 28.5 g/dL (32.0-37.0); MCV 83.8 FL (80.0-97.0); Mean Platelet Volume 9.5 FL (9.5-12.2); Monocytes # (A) 0.99 X 10*3/uL (0.20-1.00); Monocytes % (A) 9.7 %; NRBC Per 100 WBC 0 X 10*3/uL (0.00-0.01); Neutrophils # (A) 8.38 X 10*3/uL (1.80-7.70); Neutrophils % (A) 82.2 %; Platelet Count 242 X 10*3/uL (140-440); RBC 3.27 X 10*6/uL (4.40-5.60); RDW 17.5 % (11.5-14.5)
[2024-06-26] MEDS: carvediloL 6.25 MG TAB PO SCH (09:21)
[2024-06-26] MEDS: PANTOPRAZOLE 40 MG TABLET PO SCH (09:21)
[2024-06-26] MEDS ORDERED: Potassium Replacement Protocol 1 EACH MISC MISCELLANE PRN (10:52)
--- NOTE | 2024-06-26 11:12 | P.GSCN ---
History of Present Illness Consult date: 06/26/24 Reason for Consult: Right foot gangrene Requesting physician: Mary Lang History of present illness: This is a pleasant 74-year-old male with history of peripheral arterial disease well-known to vascular surgery. He has seen Dr. Padilla in the past and has undergone revascularization with his most recent being in December where he underwent left lower extremity femoropopliteal bypass followed by left BKA done at [facility]. Patient was recently at [facility] for severe anemia apparently was admitted to the ICU transfused and then left AGAINST MEDICAL ADVICE. Patient states he has had a home care nurse providing wound care for his left BKA as well as wounds to his right foot. States he has had the wounds for about 2 weeks on his right foot. He was concerned his wounds appear to be getting worse and painful came in for further evaluation. Upon admission patient was noted to have maggots coming from his right foot wounds. X-ray with osteomyelitis. He has been afebrile. He does have leukocytosis on labs today and is anemic with a hemoglobin of 7.8 platelet count 242,000. Patient denies any shortness of breath or chest pain, no abdominal pain, nausea or vomiting. Denies any diarrhea, fevers or chills. Does report pain to right foot and tenderness to left BKA. Review of Systems A 14 point review systems was completed all pertinent positives and negatives as stated in the HPI. Past Medical History Past Medical History: Coronary Artery Disease (CAD), Heart Failure, Hyperlipidemia, Hypertension, Vascular Disorder Additional Past Medical History / Comment(s): aortic aneusrym repair, herniated disc, peripheral vascular disease, anemia Last Myocardial Infarction Date:: 02/2023 History of Any Multi-Drug Resistant Organisms: None Reported Past Surgical History: Appendectomy, Coronary Bypass/CABG, Orthopedic Surgery Additional Past Surgical History / Comment(s): Right rotater cuff repair, L first and second toe removal. LBKA Past Anesthesia/Blood Transfusion Reactions: No Reported Reaction Smoking Status: Current every day smoker - Past Family History Father Family Medical History: Coronary Artery Disease (CAD) Additional Family Medical History / Comment(s): triple bypass Mother Family Medical History: Coronary Artery Disease (CAD), Dementia Medications and Allergies Home Medications Medication Instructions Recorded Confirmed Type lisinopriL [Zestril] 2.5 mg PO HS #30 tab 02/22/16 06/25/24 Rx Loratadine [Claritin] 10 mg PO DAILY 09/08/20 06/25/24 History Atorvastatin [Lipitor] 80 mg PO HS 09/20/23 06/25/24 History Spironolactone [Aldactone] 25 mg PO DAILY 09/20/23 06/25/24 History Acetaminophen Tab [Tylenol] 650 mg PO Q6HR PRN tab 09/25/23 06/25/24 Rx Folic Acid 1 mg PO DAILY tab 09/25/23 06/25/24 Rx Furosemide [Lasix] 40 mg PO DAILY #30 tablet 09/25/23 06/25/24 Rx Magnesium Citrate and Oxide 500 mg PO DAILY #30 cap 09/25/23 06/25/24 Rx [Magnesium] Thiamine [Vitamin B-1] 100 mg PO DAILY tab 09/25/23 06/25/24 Rx polyethylene glycoL 3350 [Miralax] 17 gm PO DAILY PRN 10/05/23 06/25/24 History Multivitamins, Thera [Multivitamin 1 tab PO DAILY 10/10/23 06/25/24 History (formulary)] carvediloL [Coreg] 6.25 mg PO DAILY 10/10/23 06/25/24 History Albuterol Nebulized [Ventolin 2.5 mg INHALATION RT-QID PRN 10/24/23 06/25/24 History Nebulized] Clopidogrel [Plavix] 75 mg PO DAILY 06/25/24 06/25/24 History Gabapentin 600 mg PO TID 06/25/24 06/25/24 History Omeprazole 20 mg PO DAILY 06/25/24 06/25/24 History Allergies Allergy/AdvReac Type Severity Reaction Status Date / Time No Known Allergies Allergy Verified 06/25/24 20:37 Surgical - Exam Vital Signs Temp Pulse Resp BP Pulse Ox 98.5 F 65 22 95/58 97 06/25/24 15:17 06/25/24 15:17 06/25/24 15:17 06/25/24 15:17 06/25/24 15:17 General appearance: The patient is alert, oriented, appears in no acute distress. HET: Head is normocephalic and atraumatic. Pupils are equal and reactive. Neck: Supple. Heart: Regular. Lungs: Equal expansion, normal respiratory effort. Abdomen: Soft, nontender, nondistended. Extremities: Left lower extremity with below the knee amputation. Audible bypass graft, left BKA stump with wound and cellulitis. Right foot with multiple ulcers on foot and toes, gangrene fourth and fifth distal tips. Par tial great toe and 2nd toe amputation. Maggots coming from great toe ulcer. Palpable femoral pulses, right popliteal Doppler signal. Neurological: No focal deficits. Results - Labs 06/26/24 11:45 06/26/24 06:20 Abnormal Lab Results - Last 24 Hours (Table) 06/25/24 06/25/24 06/26/24 Range/Units 16:18 16:18 06:20 WBC 10.20 H (4.50-10.00) X 10*3/uL RBC 3.82 L 3.27 L (4.30-5.90) m/uL Hgb 9.4 L 7.8 L (13.0-17.5) gm/dL Hct 32.8 L 27.4 L (39.0-53.0) % MCH 24.6 L 23.9 L (25.0-35.0) pg MCHC 28.6 L 28.5 L (31.0-37.0) g/dL RDW 17.0 H 17.5 H (11.5-15.5) % Immature Gran # 0.06 H (0.00-0.04) X 10*3/uL Neutrophils # 8.38 H (1.80-7.70) X 10*3/uL Lymphocytes # 0.4 L 0.43 L (1.0-4.8) k/uL ESR 22 H (0-20) mm/Hr Potassium 3.4 L (3.5-5.1) mmol/L Chloride 110 H (98-107) mmol/L Glucose 103 H (74-99) mg/dL Calcium (8.7-10.3) mg/dL C-Reactive Protein 1.8 H (<1.0) mg/dL Total Protein 6.2 L (6.3-8.2) g/dL 06/26/24 Range/Units 06:20 WBC (4.50-10.00) X 10*3/uL RBC (4.30-5.90) m/uL Hgb (13.0-17.5) gm/dL Hct (39.0-53.0) % MCH (25.0-35.0) pg MCHC (31.0-37.0) g/dL RDW (11.5-15.5) % Immature Gran # (0.00-0.04) X 10*3/uL Neutrophils # (1.80-7.70) X 10*3/uL Lymphocytes # (1.0-4.8) k/uL ESR (0-20) mm/Hr Potassium 3.3 L (3.5-5.1) mmol/L Chloride 110 H (98-107) mmol/L Glucose (74-99) mg/dL Calcium 8.0 L (8.7-10.3) mg/dL C-Reactive Protein (<1.0) mg/dL Total Protein (6.3-8.2) g/dL Diabetes panel 06/25/24 06/26/24 Range/Units 16:18 06:20 Sodium 141 142 (137-145) mmol/L Potassium 3.4 L 3.3 L (3.5-5.1) mmol/L Chloride 110 H 110 H (98-107) mmol/L Carbon Dioxide 25 23.3 (22-30) mmol/L BUN 18 11.4 (9-20) mg/dL Creatinine 0.69 0.7 (0.66-1.25) mg/dL Glucose 103 H 79 (74-99) mg/dL Calcium 9.0 8.0 L (8.4-10.2) mg/dL AST 25 (17-59) U/L ALT 18 (4-49) U/L Alkaline Phosphatase 79 (38-126) U/L Total Protein 6.2 L (6.3-8.2) g/dL Albumin 3.5 (3.5-5.0) g/dL Calcium panel 06/25/24 06/26/24 Range/Units 16:18 06:20 Calcium 9.0 8.0 L (8.4-10.2) mg/dL Albumin 3.5 (3.5-5.0) g/dL Pituitary panel 06/25/24 06/26/24 Range/Units 16:18 06:20 Sodium 141 142 (137-145) mmol/L Potassium 3.4 L 3.3 L (3.5-5.1) mmol/L Chloride 110 H 110 H (98-107) mmol/L Carbon Dioxide 25 23.3 (22-30) mmol/L BUN 18 11.4 (9-20) mg/dL Creatinine 0.69 0.7 (0.66-1.25) mg/dL Glucose 103 H 79 (74-99) mg/dL Calcium 9.0 8.0 L (8.4-10.2) mg/dL Adrenal panel 06/25/24 06/26/24 Range/Units 16:18 06:20 Sodium 141 142 (137-145) mmol/L Potassium 3.4 L 3.3 L (3.5-5.1) mmol/L Chloride 110 H 110 H (98-107) mmol/L Carbon Dioxide 25 23.3 (22-30) mmol/L BUN 18 11.4 (9-20) mg/dL Creatinine 0.69 0.7 (0.66-1.25) mg/dL Glucose 103 H 79 (74-99) mg/dL Calcium 9.0 8.0 L (8.4-10.2) mg/dL Total Bilirubin 0.6 (0.2-1.3) mg/dL AST 25 (17-59) U/L ALT 18 (4-49) U/L Alkaline Phosphatase 79 (38-126) U/L Total Protein 6.2 L (6.3-8.2) g/dL Albumin 3.5 (3.5-5.0) g/dL - Imaging Comments: Right foot x-ray reports osseous erosion of the second digit middle phalanx with nonvisualization of distal phalanx. Correlate for osteomyelitis Assessment and Plan Assessment: 1. Infected right foot wounds 2. Osteomyelitis right toes 3. Left BKA nonhealing wound with cellulitis 4. Chronic anemia 5. Hypokalemia 6. Peripheral arterial disease Plan: 1. N.p.o. after midnight 2. Antibiotics per recommendations from infectious disease 3. Replace potassium per protocol 4. Patient is tentatively scheduled for right TMA with possible BKA, left BKA debridement 5. Type and screen ordered 6. Repeat CBC, BMP tomorrow. Transfuse for hemoglobin less than 9 for surgery. 7. Further recommendations forthcoming per vascular surgeon Thank you for this consultation, we will continue to follow. The impression and plan of care has been dictated as directed. I performed a history and examination of this patient, discussed the same with the dictator. I agree with the dictator's note ,documented as a scribe. Any additional findings or plans will be noted.
[2024-06-26] MEDS: POTASSIUM CHLORIDE ER 20 MEQ TAB.ER PO SCH ×2 (11:34→14:01)
[2024-06-26] MEDS: MULTIVITAMINS, THERA 1 EACH TAB PO SCH (11:34)
[2024-06-26] MEDS: THIAMINE 100 MG TAB PO SCH (11:34)
[2024-06-26] MEDS: FOLIC ACID 1 MG TAB PO SCH (11:34)
[2024-06-26] MEDS: CLOPIDOGREL 75 MG TAB PO SCH (11:34)
[2024-06-26] MEDS: LORATADINE 10 MG TAB PO SCH (11:34)
[2024-06-26] MEDS: SPIRONOLACTONE 25 MG TAB PO SCH (11:34)
[2024-06-26] MEDS: FUROSEMIDE 40 MG TAB PO SCH (11:34)
[2024-06-26] MEDS: MAGNESIUM OXIDE 400 MG TAB PO SCH (11:35)
[2024-06-26] MEDS: HYDROcodone/APAP 5-325MG 1 EACH TAB PO PRN (11:37)
[2024-06-26 12:10] LABS: Anisocytosis Slight; HCT 27.4 % (39.0-53.0); HGB 8.1 gm/dL (13.0-17.5); Hypochromasia Marked; MCH 24.9 pg (25.0-35.0); MCHC 29.5 g/dL (31.0-37.0); MCV 84.6 fL (80.0-100.0); Mean Platelet Volume 8.1; Platelet Count 255 k/uL (150-450); Poikilocytosis Marked; RBC 3.24 m/uL (4.30-5.90); RDW 16.7 % (11.5-15.5); WBC 10.3 k/uL (3.8-10.6)
--- NOTE | 2024-06-26 12:58 | P.HPIM ---
History of Present Illness H&P Date: 06/26/24 Chief Complaint: Osteomyelitis Is a 74-year-old gentleman with past medical history significant for PAD, multiple vascular procedures including femoral-popliteal bypass, left BKA CABG, GI bleed, anemia-hemoglobin, herniated disc, hypertension, hyperlipidemia, nicotine dependence, daily alcohol use multiple other medical issues. Patient recently was at [facility] on June 17. Apparently he had gone to wound care discovered to be have a significantly decreased hemoglobin around 5, was admitted to ICU. Status post transfusion of 3 units packed RBCs, endoscopy completed with bleeding source not identified, left AMA from the ICU. Patient did not follow-up with PCP, nor wound care. patient reports he has not followed up with vascular surgery in over a month. Reports he had no antibiotics, but had home care coming into his home 3 times a week for wound care of bilateral extremities. Reports wounds worsening over the last couple weeks accompanied by increased tenderness and pain. Denies nausea, vomiting or diarrhea. Denies fevers or chills. Denies chest pain, palpitations or shortness of breath on admission to the ER right foot wounds infested with maggots. Right foot x-ray reported osteomyelitis, afebrile, initially normal WBC, WBC increased this morning to 10.2,ESR elevated, 22 and CRP 1.8. hemoglobin 7.8, platelets 242. Renal function stable, potassium 3.3, supplements ordered. Review of Systems ROS Statement: Those systems with pertinent positive or pertinent negative responses have been documented in the HPI. ROS Other: All systems not noted in ROS Statement are negative. Past Medical History Past Medical History: Coronary Artery Disease (CAD), Heart Failure, Hyperlipidemia, Hypertension, Vascular Disorder Additional Past Medical History / Comment(s): aortic aneusrym repair, herniated disc, peripheral vascular disease, anemia Last Myocardial Infarction Date:: 02/2023 History of Any Multi-Drug Resistant Organisms: None Reported Past Surgical History: Appendectomy, Coronary Bypass/CABG, Orthopedic Surgery Additional Past Surgical History / Comment(s): Right rotater cuff repair, L fi rst and second toe removal. LBKA Past Anesthesia/Blood Transfusion Reactions: No Reported Reaction Smoking Status: Current every day smoker - Past Family History Father Family Medical History: Coronary Artery Disease (CAD) Additional Family Medical History / Comment(s): triple bypass Mother Family Medical History: Coronary Artery Disease (CAD), Dementia Medications and Allergies Home Medications Medication Instructions Recorded Confirmed Type lisinopriL [Zestril] 2.5 mg PO HS #30 tab 02/22/16 06/25/24 Rx Loratadine [Claritin] 10 mg PO DAILY 09/08/20 06/25/24 History Atorvastatin [Lipitor] 80 mg PO HS 09/20/23 06/25/24 History Spironolactone [Aldactone] 25 mg PO DAILY 09/20/23 06/25/24 History Acetaminophen Tab [Tylenol] 650 mg PO Q6HR PRN tab 09/25/23 06/25/24 Rx Folic Acid 1 mg PO DAILY tab 09/25/23 06/25/24 Rx Furosemide [Lasix] 40 mg PO DAILY #30 tablet 09/25/23 06/25/24 Rx Magnesium Citrate and Oxide 500 mg PO DAILY #30 cap 09/25/23 06/25/24 Rx [Magnesium] Thiamine [Vitamin B-1] 100 mg PO DAILY tab 09/25/23 06/25/24 Rx polyethylene glycoL 3350 [Miralax] 17 gm PO DAILY PRN 10/05/23 06/25/24 History Multivitamins, Thera [Multivitamin 1 tab PO DAILY 10/10/23 06/25/24 History (formulary)] carvediloL [Coreg] 6.25 mg PO DAILY 10/10/23 06/25/24 History Albuterol Nebulized [Ventolin 2.5 mg INHALATION RT-QID PRN 10/24/23 06/25/24 Hi story Nebulized] Clopidogrel [Plavix] 75 mg PO DAILY 06/25/24 06/25/24 History Gabapentin 600 mg PO TID 06/25/24 06/25/24 History Omeprazole 20 mg PO DAILY 06/25/24 06/25/24 History Allergies Allergy/AdvReac Type Severity Reaction Status Date / Time No Known Allergies Allergy Verified 06/25/24 20:37 Physical Exam Vitals: Vital Signs Temp Pulse Pulse Resp BP BP Pulse Ox 06/26/24 09:43 98.5 F 14 06/26/24 07:44 65 114/56 93 L 06/26/24 01:44 98.1 F 60 18 115/65 93 L 06/25/24 21:45 98.0 F 62 18 124/73 98 06/25/24 21:21 66 18 115/50 97 06/25/24 20:30 98.4 F 60 18 116/57 06/25/24 15:17 98.5 F 65 22 95/58 97 Intake and Output 06/25/24 06/26/24 06/26/24 22:59 06:59 14:59 Output Total 550 Balance -550 Output: Urine 550 Other: Voiding Method Urinal Urinal Weight 58.967 kg PHYSICAL EXAMINATION: VS: As above GENERAL: Alert and oriented 3, sitting up at side of bed, no acute distress HEENT: Normocephalic, atraumatic. Pupils equal and reactive. Sclera anicteric NECK: Supple, no JVD CHEST EXAMINATION: Unlabored, equal air entry, essentially clear, bilateral bases diminished CARDIAC: Normal S1, S2 with no gallops. Systolic murmur. ABDOMEN: Soft. Nondistended, nontender, Bowel sounds normal. No guarding, no rigidity. EXTREMITIES: Left BKA stump with cellulitis, wound. Right foot with partial great toe amputation with ulcer -maggots present ,multiple ulcers, fourth and fifth digits- distal gangrene. NEUROLOGICAL: Cranial nerves II through XII grossly intact. Skin: No rash, warm and dry. Results CBC & Chem 7: 06/26/24 11:45 06/26/24 06:20 Labs: Abnormal Lab Results - Last 24 Hours (Table) 06/25/24 06/25/24 06/26/24 Range/Units 16:18 16:18 06:20 WBC 10.20 H (4.50-10.00) X 10*3/uL RBC 3.82 L 3.27 L (4.30-5.90) m/uL Hgb 9.4 L 7.8 L (13.0-17.5) gm/dL Hct 32.8 L 27.4 L (39.0-53.0) % MCH 24.6 L 23.9 L (25.0-35.0) pg MCHC 28.6 L 28.5 L (31.0-37.0) g/dL RDW 17.0 H 17.5 H (11.5-15.5) % Immature Gran # 0.06 H (0.00-0.04) X 10*3/uL Neutrophils # 8.38 H (1.80-7.70) X 10*3/uL Lymphocytes # 0.4 L 0.43 L (1.0-4.8) k/uL ESR 22 H (0-20) mm/Hr Potassium 3.4 L (3.5-5.1) mmol/L Chloride 110 H (98-107) mmol/L Glucose 103 H (74-99) mg/dL Calcium (8.7-10.3) mg/dL C-Reactive Protein 1.8 H (<1.0) mg/dL Total Protein 6.2 L (6.3-8.2) g/dL 06/26/24 Range/Units 06:20 WBC (4.50-10.00) X 10*3/uL RBC (4.30-5.90) m/uL Hgb (13.0-17.5) gm/dL Hct (39.0-53.0) % MCH (25.0-35.0) pg MCHC (31.0-37.0) g/dL RDW (11.5-15.5) % Immature Gran # (0.00-0.04) X 10*3/uL Neutrophils # (1.80-7.70) X 10*3/uL Lymphocytes # (1.0-4.8) k/uL ESR (0-20) mm/Hr Potassium 3.3 L (3.5-5.1) mmol/L Chloride 110 H (98-107) mmol/L Glucose (74-99) mg/dL Calcium 8.0 L (8.7-10.3) mg/dL C-Reactive Protein (<1.0) mg/dL Total Protein (6.3-8.2) g/dL Thrombosis Risk Factor Assmnt - Choose All That Apply Any of the Below Risk Factors Present?: No Other Risk Factors: Yes Each Risk Factor Represents 2 Points: Age 61-74 years Other congenital or acquired thrombophilia - If yes, enter type in comment: No Thrombosis Risk Factor Assessment Total Risk Factor Score: 2 Thrombosis Risk Factor Assessment Level: Low Risk Assessment and Plan Assessment: Infected right foot wounds, right digits with osteomyelitis Left BKA cellulitis with nonhealing wound Chronic anemia Chronic CHF, systolic dysfunction, EF 35%. History of right solid renal mass, measuring up to 25 mm, further follow-up outpatient Large cystic lesion in the left upper quadrant unclear with this coming from the pancreas versus the kidney versus postsurgical seroma, further follow-up outpatient Recent abdominal aortic aneurysm endovascular repair Colonic diverticulosis Ischemic cardiomyopathy Aortic stenosis Coronary disease with history of CABG Hypertension Hyperlipidemia Nicotine dependence Daily alcohol use Marijuana use Hypokalemia Plan: Continue on current medication regimen ,monitoring and symptomatic treatment. Antibiotics/Zosyn as per ID. Evaluated by vascular, scheduled for debridement of left BKA and amputation of right lower extremity. Potassium supplemented. Prognosis guarded given multiple complex medical issues. Repeat CBC pending. Close monitoring of hemoglobin, electrolytes, renal function with repeat labs ordered for a.m. The impression and plan of care has been dictated as directed. : I performed a history and examination of this patient, discussed the same with the dictator. I agree with the dictator's note ,documented as a scribe. Any additional findings or plans will be noted.
[2024-06-26] MEDS ORDERED: AMPICILLIN-SULBACTAM 3 GM in SODIUM CHLORIDE 0.9% 100 ML IVPB SCH (13:00)
[2024-06-26] MEDS: PIPERACILLIN-TAZOBACTAM 3.375 GM in SODIUM CHLORIDE 0.9% 100 ML IVPB SCH (14:02)
--- NOTE | 2024-06-26 23:31 | P.CONS ---
History of Present Illness - Reason for Consult Consult date: 06/26/24 Right foot gangrene Requesting physician: Mary Lang - Chief Complaint Right foot worsening wound and drainage x days - History of Present Illness Patient is a 74-year-old male with a past medical history significant for coronary artery disease hypertension hyperlipidemia heart failure with peripheral arterial disease in this patient was status post left below the knee amputation for nonhealing wound to the left lower extremity patient now presenting to the hospital for evaluation of ulceration to the right lower extremity who has been taking care by the home care nurse who has been wrapping his leg routinely and apparently she noticed worsening of the wound to the right foot and apparently was some maggot infestation as reported by the nursing staff the area has been cleaned culture has been obtained he was given a dose of Unasyn in the ER subsequently has been admitted to hospital infectious disease was consulted for further management patient on presentation to the hospital was afebrile and no fever have recorded subsequently patient was not tachycardic hypotensive or hypoxic and no need for supplemental oxygen patient did have white count of 10.20 with a left shift creatinine is 0.7 potassium is 3.3 liver isms are normal CRP is 1.8 he did have the foot x-ray bony erosion of the second digit middle phalanx with nonvisualization of the distal phalanx correlate for osteomyelitis infectious disease was consulted for further management Review of Systems Positive point and negatives has been mentioned in the HPI, complete review of systems was performed and all other systems are negative Past Medical History Past Medical History: Coronary Artery Disease (CAD), Heart Failure, Hyperlipidemia, Hypertension, Vascular Disorder Additional Past Medical History / Comment(s): aortic aneusrym repair, herniated disc, peripheral vascular disease, anemia Last Myocardial Infarction Date:: 02/2023 History of Any Multi-Drug Resistant Organisms: None Reported Past Surgical History: Appendectomy, Coronary Bypass/CABG, Orthopedic Surgery Additional Past Surgical History / Comment(s): Right rotater cuff repair, L first and second toe removal. LBKA Past Anesthesia/Blood Transfusion Reactions: No Reported Reaction Smoking Status: Current every day smoker - Past Family History Father Family Medical History: Coronary Artery Disease (CAD) Additional Family Medical History / Comment(s): triple bypass Mother Family Medical History: Coronary Artery Disease (CAD), Dementia Medications and Allergies Home Medications Medication Instructions Recorded Confirmed Type lisinopriL [Zestril] 2.5 mg PO HS #30 tab 02/22/16 06/25/24 Rx Loratadine [Claritin] 10 mg PO DAILY 09/08/20 06/25/24 History Atorvastatin [Lipitor] 80 mg PO HS 09/20/23 06/25/24 History Spironolactone [Aldactone] 25 mg PO DAILY 09/20/23 06/25/24 History Acetaminophen Tab [Tylenol] 650 mg PO Q6HR PRN tab 09/25/23 06/25/24 Rx Folic Acid 1 mg PO DAILY tab 09/25/23 06/25/24 Rx Furosemide [Lasix] 40 mg PO DAILY #30 tablet 09/25/23 06/25/24 Rx Magnesium Citrate and Oxide 500 mg PO DAILY #30 cap 09/25/23 06/25/24 Rx [Magnesium] Thiamine [Vitamin B-1] 100 mg PO DAILY tab 09/25/23 06/25/24 Rx polyethylene glycoL 3350 [Miralax] 17 gm PO DAILY PRN 10/05/23 06/25/24 History Multivitamins, Thera [Multivitamin 1 tab PO DAILY 10/10/23 06/25/24 History (formulary)] carvediloL [Coreg] 6.25 mg PO DAILY 10/10/23 06/25/24 History Albuterol Nebulized [Ventolin 2.5 mg INHALATION RT-QID PRN 10/24/23 06/25/24 History Nebulized] Clopidogrel [Plavix] 75 mg PO DAILY 06/25/24 06/25/24 History Gabapentin 600 mg PO TID 06/25/24 06/25/24 History Omeprazole 20 mg PO DAILY 06/25/24 06/25/24 History Allergies Allergy/AdvReac Type Severity Reaction Status Date / Time No Known Allergies Allergy Verified 06/25/24 20:37 Physical Exam Vitals: Vital Signs Temp Pulse Pulse Resp BP BP Pulse Ox 06/26/24 09:43 98.5 F 14 06/26/24 07:44 65 114/56 93 L 06/26/24 01:44 98.1 F 60 18 115/65 93 L 06/25/24 21:45 98.0 F 62 18 124/73 98 06/25/24 21:21 66 18 115/50 97 06/25/24 20:30 98.4 F 60 18 116/57 06/25/24 15:17 98.5 F 65 22 95/58 97 Intake and Output 06/25/24 06/26/24 06/26/24 22:59 06:59 14:59 Output Total 550 Balance -550 Output: Urine 550 Other: Voiding Method Urinal Urinal Weight 58.967 kg GENERAL DESCRIPTION: Elderly male lying in bed, no distress. No tachypnea or accessory muscle of respiration use. HEENT: Shows Pallor , no scleral icterus. Oral mucous membrane is dry. No pharyngeal erythema or thrush NECK: Trachea central, no thyromegaly. LUNGS: Unlabored breathing. Clear to auscultation anteriorly. No wheeze or crackle. HEART: S1, S2, regular rate and rhythm. No loud murmur ABDOMEN: Soft, no tenderness , guarding or rigidity, no organomegaly EXTREMITIES: Left BKA stump did have a wound on the medial side with some slough tissue patient also have a wound to the right foot with some erythema no foul- smelling drainage was noticed SKIN: No rash, no masses palpable. NEUROLOGICAL: The patient is awake, alert, oriented x3, mood and affect normal. Results CBC & Chem 7: 06/26/24 11:45 06/26/24 06:20 Labs: Abnormal Lab Results - Last 24 Hours (Table) 06/25/24 06/25/24 06/26/24 Range/Units 16:18 16:18 06:20 WBC 10.20 H (4.50-10.00) X 10*3/uL RBC 3.82 L 3.27 L (4.30-5.90) m/uL Hgb 9.4 L 7.8 L (13.0-17.5) gm/dL Hct 32.8 L 27.4 L (39.0-53.0) % MCH 24.6 L 23.9 L (25.0-35.0) pg MCHC 28.6 L 28.5 L (31.0-37.0) g/dL RDW 17.0 H 17.5 H (11.5-15.5) % Immature Gran # 0.06 H (0.00-0.04) X 10*3/uL Neutrophils # 8.38 H (1.80-7.70) X 10*3/uL Lymphocytes # 0.4 L 0.43 L (1.0-4.8) k/uL ESR 22 H (0-20) mm/Hr Potassium 3.4 L (3.5-5.1) mmol/L Chloride 110 H (98-107) mmol/L Glucose 103 H (74-99) mg/dL Calcium (8.7-10.3) mg/dL C-Reactive Protein 1.8 H (<1.0) mg/dL Total Protein 6.2 L (6.3-8.2) g/dL 06/26/24 Range/Units 06:20 WBC (4.50-10.00) X 10*3/uL RBC (4.30-5.90) m/uL Hgb (13.0-17.5) gm/dL Hct (39.0-53.0) % MCH (25.0-35.0) pg MCHC (31.0-37.0) g/dL RDW (11.5-15.5) % Immature Gran # (0.00-0.04) X 10*3/uL Neutrophils # (1.80-7.70) X 10*3/uL Lymphocytes # (1.0-4.8) k/uL ESR (0-20) mm/Hr Potassium 3.3 L (3.5-5.1) mmol/L Chloride 110 H (98-107) mmol/L Glucose (74-99) mg/dL Calcium 8.0 L (8.7-10.3) mg/dL C-Reactive Protein (<1.0) mg/dL Total Protein (6.3-8.2) g/dL Assessment and Plan (1) Foot osteomyelitis, right Current Visit: Yes Status: Acute Code(s): M86.9 - OSTEOMYELITIS, UNSPECIFIED SNOMED Code(s): [id number] Plan: 1patient presented to hospital with a worsening wound to the right foot area in this patient who did have significant abnormality seen on the x-ray concerning for possible deeper infection and osteomyelitis 2-May benefit from surgical debridement and deep culture 3-we will empirically start the patient on Zosyn 3.375 g every 8 hours depending upon his previous culture and sensitivity data 4-local wound care per the wound care team We will follow on clinical condition and cultures to further adjust medication if needed Thank you for this consultation we will follow the patient along with you Dictation was produced using [employer] dictation software. please excuse any grammatical, word or spelling errors. Time with Patient: Greater than 30
[2024-06-27] MEDS: polyethylene glycoL 3350 17 GM POWD.PACK PO PRN (00:12)
[2024-06-27 05:55] LABS: Anisocytosis Slight; Basophils % (A) 0 %; Eosinophils # (A) 0.2 k/uL (0-0.7); Eosinophils % (A) 2 %; HCT 26.7 % (39.0-53.0); HGB 7.7 gm/dL (13.0-17.5); Hypochromasia Marked; Lymphocytes # (A) 0.4 k/uL (1.0-4.8); Lymphocytes % (A) 5 %; MCH 24.9 pg (25.0-35.0); MCHC 28.7 g/dL (31.0-37.0); MCV 86.7 fL (80.0-100.0); Mean Platelet Volume 6.9; Monocytes # (A) 0.5 k/uL (0-1.0); Monocytes % (A) 7 %; Neutrophils # (A) 6.6 k/uL (1.3-7.7); Neutrophils % (A) 82 %; Platelet Count 247 k/uL (150-450); Poikilocytosis Moderate; RBC 3.08 m/uL (4.30-5.90); RDW 16.9 % (11.5-15.5); WBC 8.1 k/uL (3.8-10.6)
[2024-06-27 06:16] LABS: African American GFR (CKD) >90 (>60 ml/min/1.73 sqM); Anion Gap 4 mmol/L; Blood Urea Nitrogen 13 mg/dL (9-20); Carbon Dioxide 27 mmol/L (22-30); Chloride 108 mmol/L (98-107); Glucose 93 mg/dL (74-99); Non-African American GFR(CKD) 83 (>60 ml/min/1.73 sqM); Potassium 4.3 mmol/L (3.5-5.1); Sodium 139 mmol/L (137-145)
--- NOTE | 2024-06-27 10:44 | US ---
EXAMINATION TYPE: US arterial LE multi level DATE OF EXAM: 06/27/2024 10:33 AM CLINICAL INDICATION: Male, 74 years old with history of right foot wounds, PAD; pending amputation of right toes that are remaining, h/o right toe amputations along with left leg amuptation below knee History of: Smoker: y Hypertension: y Diabetic: n Hyperlipidemia: y TIA/CVA: n Previous Vascular Surgery: y= left leg grafting CAD: n NC: y Vascular Ulcers: n Claudication: n Gangrene: n Doppler Waveforms: Right: Monophasic Left: Monophasic Right Brachial Pressure: 127 Left Brachial Pressure: IV - deferred Ankle-Brachial Indices: Right: 0.3 Left: amputated (Vessel hardening > 1.4; Normal 0.9 - 1.4, Moderate 0.7 - 0.9, Severe 0.5-0.7) Toe Brachial Indices: Right: no great toe, other toes are nubs and too small to assess Left: amputated IMPRESSION: Severe atherosclerotic disease of the right lower extremity. [facility], , 06/27/2024 10:42 AM
[2024-06-27] MEDS: MIDAZOLAM 2 MG/2 ML VIAL IVP ONE (12:10)
[2024-06-27] MEDS: SODIUM CHLORIDE 0.9% 500 ML 500 ML IV ONE (12:10)
[2024-06-27] MEDS: fentaNYL (PF) 50 MCG/ML 2 ML AMP IVP ONE (12:10)
[2024-06-27] MEDS: LIDOCAINE 1% INJ 10MG/ML (20 ML MDV) SQ ONE (12:12)
[2024-06-27] MEDS: HEPARIN SODIUM 1,000 UN/ML (10ML VL) IVP ONE (12:44)
[2024-06-27] MEDS: IOPAMIDOL-370 200ML BTL INJ ONE (13:08)
[2024-06-27] MEDS: HEPARIN SODIUM,PORCINE (1 ML) 2,500 UNIT in SODIUM CHLORIDE 0.9% 250 ML IRRIGATION ONE (13:14)
[2024-06-27] MEDS: HEPARIN SODIUM,PORCINE 10,000 UNIT in SODIUM CHLORIDE 0.9% 1,000 ML IRRIGATION ONE (13:14)
--- NOTE | 2024-06-27 13:20 | P.OP ---
Date of Procedure: 06/27/24 Description of Procedure: Preoperative diagnosis: Critical limb ischemia right lower extremity Postop diagnosis: Same, severe superficial femoral artery calcific occlusive disease with reconstitution below the knee and one-vessel runoff posterior tibial artery to the foot Procedure: Aortogram with right lower extremity runoff via left femoral artery access under ultrasound guidance Surgeon: Randy Anesthesia: Moderate sedation times 54 minutes Estimated blood loss: 5cc Complications: None Condition: Stable Findings: Aorta: Patent aortic stent graft. Iliacs: Bilateral common, internal and external iliac arteries with dense calcific disease without significant stenosis Femorals: Common femoral artery on the right with dense calcific disease throughout no evidence of severe stenosis. Profundus femoris with dense calcification but no stenosis. Superficial femoral artery with severe calcific occlusive disease throughout with multiple areas of occlusion and reconstitution below knee at the tibial peroneal trunk Popliteal: Dense calcific occlusion of the right popliteal artery Tibials: Tibioperoneal trunk with dense calcific disease throughout. Anterior tibial artery is occluded. Posterior tibial artery runoff to the foot with calcific disease throughout but no significant stenosis. Peroneal is patent to the midportion of the lower leg Operative narrative: After written informed consent was obtained the patient all risks benefits competitions were described the patient is brought to the P[facility] and laid in a supine position. The area of the left groin was prepped and draped in the usual sterile fashion. Local anesthesia with moderate sedation was performed with continuous pulse ox monitoring and EKG monitoring. Utilizing ultrasound the left femoral artery was visualized and shown to be patent without any significant plaque. Utilizing a multipurpose needle under ultrasound guidance the artery was accessed. Guidewire was placed followed by 6 Andorran sheath. 035 Glidewire was then placed into the aorta followed by RBI catheter. Angiogram was then obtained of the aorta. Catheter was then placed across the right common iliac artery and right lower extremity runoff was obtained. Due to the calcific disease throughout we attempted to revascularize the right lower extremity. 035 Glidewire advantage was placed followed by a 6 Andorran 65 cm destination sheath. Utilizing a quick cross catheter attempt was made to cross the multiple lesions in the superficial femoral artery. Midportion of the superficial femoral artery was crossed but distally unable to cross into the tibial peroneal trunk due to the dense calcification. At this time all guidewires and catheters were then removed and sheath was exchanged for a short 6 Andorran sheath and a Vascade closure device was placed for hemostasis. Pressure was held for hemostasis in normal fashion. Patient tolerated procedure well was sent to his room for recovery. He does have reconstitution at the posterior tibial artery at the lower leg and therefore would benefit from a femoral-tibial bypass with CryoVein. We will order a CryoVein and determine timing for scheduling for a fem-tib bypass followed by transmetatarsal amputation.
--- NOTE | 2024-06-27 13:31 | IR ---
EXAMINATION TYPE: IR angio abdominal w runoff DATE OF EXAM: 06/27/2024 COMPARISON: NONE HISTORY: Fluoroscopy time. Fluoroscopy was provided to the referring clinician. [facility], , 06/27/2024 1:28 PM
--- NOTE | 2024-06-27 15:19 | P.PN ---
Subjective Progress Note Date: 06/27/24 Principal diagnosis: Reason for follow-up is right foot ulcer and osteomyelitis Patient is a 74-year-old male with a past medical history significant for coronary artery disease hypertension hyperlipidemia heart failure with peripheral arterial disease in this patient was status post left below the knee amputation for nonhealing wound to the left lower extremity patient now presenting to the hospital for evaluation of ulceration to the right lower extremity with abnormal x-ray suggestive of osteomyelitis.Patient is status post aortogram with right lower extremity runoff did shows evidence of significant PAD On today's evaluation that is 06/27/2024,the patient denies any fever or any chills, patient is breathing comfortably on room air, the patient denies chest pain shortness of breath and no significant cough, patient denies abdominal pain, no nausea vomiting or diarrhea. Still complaining of pain to the right lower extremity but no worsening. Patient white count is 8.1, creatinine 0.91 cultures currently growing gram- negative bacilli Objective - Vital Signs Vital signs: Vital Signs Temp 97.7 F 06/27/24 11:26 Pulse 78 06/27/24 14:09 Resp 18 06/27/24 14:09 BP 162/58 06/27/24 14:09 Pulse Ox 95 06/27/24 14:09 FiO2 Intake & Output 06/26/24 06/27/24 06/27/24 18:59 06:59 18:59 Intake Total 540 10 510 Output Total 950 1225 Balance 540 -020 715 Intake: IV 10 200 Invasive Line 1 10 Oral 540 Blood Product 310 Rc As-1 Unit 310 [id number] Output: Urine 950 1225 Other: Voiding Method Urinal Urinal Urinal # Voids 1 1 # Bowel Movements 0 - Exam GENERAL DESCRIPTION: An elderly male lying in bed in no distress RESPIRATORY SYSTEM: Unlabored breathing , decreased breath sounds at bases HEART: S1 S2 regular rate and rhythm , ABDOMEN: Soft , no tenderness EXTREMITIES: Right foot wound is currently dressed - Labs CBC & Chem 7: 06/27/24 05:38 06/27/24 05:38 Labs: Abnormal Lab Results - Last 24 Hours (Table) 06/26/24 06/27/24 06/27/24 Range/Units 11:45 05:38 05:38 RBC 3.08 L (4.30-5.90) m/uL Hgb 7.7 L (13.0-17.5) gm/dL Hct 26.7 L (39.0-53.0) % MCH 24.9 L (25.0-35.0) pg MCHC 28.7 L (31.0-37.0) g/dL RDW 16.9 H (11.5-15.5) % Lymphocytes # 0.4 L (1.0-4.8) k/uL Chloride 108 H (98-107) mmol/L Calcium 8.0 L (8.4-10.2) mg/dL Crossmatch See Detail Microbiology - Last 24 Hours (Table) 06/26/24 09:10 Gram Stain - Preliminary Foot - Right Wound Culture - Preliminary Gram Neg Bacilli Assessment and Plan (1) Foot osteomyelitis, right Current Visit: Yes Status: Acute Code(s): M86.9 - OSTEOMYELITIS, UNSPECIFIED SNOMED Code(s): 5913339265461038 Plan: 1patient presented to hospital with a worsening wound to the right foot area in this patient who did have significant abnormality seen on the x-ray concerning for possible deeper infection and osteomyelitis 2-patient status post aortogram with evidence of significant PAD vascular surgery planning for CryoVein 3-local culture currently growing gram-negative bacilli we will continue Zosyn 3.375 g every 8 hours while waiting for sensitivity to finalize Dictation was produced using [employer] dictation software. please excuse any grammatical, word or spelling errors. Time with Patient: Less than 30
--- NOTE | 2024-06-28 14:21 | P.PN ---
Subjective Progress Note Date: 06/28/24 74-year-old gentleman with past medical history significant for PAD, multiple vascular procedures including femoral-popliteal bypass, left BKA CABG, GI bleed, anemia-hemoglobin, herniated disc, hypertension, hyperlipidemia, nicotine dependence, daily alcohol use multiple other medical issues. Patient recently was at [facility] on June 17. Apparently he had gone to wound care discovered to be have a significantly decreased hemoglobin around 5, was admitted to ICU. Status post transfusion of 3 units packed RBCs, endoscopy completed with bleeding source not identified, left AMA from the ICU. Patient did not follow-up with PCP, nor wound care. patient reports he has not followed up with vascular surgery in over a month. Reports he had no antibiotics, but had home care coming into his home 3 times a week for wound care of bilateral extremities. Reports wounds worsening over the last couple weeks accompanied by increased tenderness and pain. Denies nausea, vomiting or diarrhea. Denies fevers or chills. Denies chest pain, palpitations or shortness of breath on admission to the ER right foot wounds infested with maggots. Right foot x-ray reported osteomyelitis, afebrile, initially normal WBC, WBC increased this morning to 10.2,ESR elevated, 22 and CRP 1.8. hemoglobin 7.8, platelets 242. Renal function stable, potassium 3.3, supplements ordered. 04/28. Patient seen and examined. Patient underwent aortogram with right lower extremity runoff via left femoral artery access with reconstitution below the knee. States he feels better. REVIEW OF SYSTEMS: CONSTITUTIONAL: No fever, no malaise,. CARDIOVASCULAR: No chest pain, no palpitations, no syncope. PULMONARY: No shortness of breath, no cough, GASTROINTESTINAL: No diarrhea, no nausea, no vomiting, no abdominal pain. NEUROLOGICAL: No headaches, no weakness, PHYSICAL EXAMINATION: GENERAL: The patient is alert and oriented x3, not in any acute distress. Chronically ill looking HEENT: Pupils are round and equally reacting to light. EOMI. No scleral icterus. No conjunctival pallor. Normocephalic, atraumatic. No pharyngeal erythema. No thyromegaly. CARDIOVASCULAR: S1 and S2 present. No murmurs, rubs, or gallops. PULMONARY: Chest is clear to auscultation, no wheezing or crackles. ABDOMEN: Soft, nontender, nondistended, normoactive bowel sounds. No palpable organomegaly. MUSCULOSKELETAL: Right foot swelling and erythema, left BKA EXTREMITIES: No cyanosis, clubbing, or pedal edema. NEUROLOGICAL: Gross neurological examination did not reveal any focal deficits. SKIN: No rashes. Assessment and plan acute right foot osteomyelitis Critical limb ischemia right lower extremity Left BKA cellulitis with nonhealing wound Chronic anemia Chronic CHF, systolic dysfunction, EF 35%. History of right solid renal mass, measuring up to 25 mm, further follow-up outpatient Large cystic lesion in the left upper quadrant unclear with this coming from the pancreas versus the kidney versus postsurgical seroma, further follow-up outpatient Recent abdominal aortic aneurysm endovascular repair Colonic diverticulosis Ischemic cardiomyopathy Aortic stenosis Coronary disease with history of CABG Hypertension Hyperlipidemia Nicotine dependence Daily alcohol use Marijuana use Hypokalemia Monitor vital signs Monitor CBC Monitor CMP Continue Plavix, Lipitor Continue IV Zosyn Vascular surgery planning femoral-tibial bypass with CryoVein followed by transmetatarsal amputation on Sunday ID following Labs and medication were reviewed.. Continue same treatment. Continue with symptomatic treatment. Resume home medication. Monitor labs and vitals. DVT and GI prophylaxis. Further recommendations as per clinical course of the patient Dictation was produced using [employer] dictation software. please excuse any grammatical, word or spelling errors. Objective - Vital Signs Vital signs: Vital Signs Temp 98.2 F 06/28/24 08:00 Pulse 71 06/28/24 08:00 Resp 18 06/28/24 08:00 BP 135/77 06/28/24 08:00 Pulse Ox 96 06/28/24 08:00 FiO2 Intake & Output 06/27/24 06/28/24 06/28/24 18:59 06:59 18:59 Intake Total 690 Output Total 1825 300 Balance -1135 -300 Weight 63 kg Intake: IV 200 Oral 180 Blood Product 310 Rc As-1 Unit 310 [id number] Output: Urine 1825 300 Other: Voiding Method Urinal Urinal # Voids 1 - Labs CBC & Chem 7: 06/27/24 05:38 06/27/24 05:38 Labs: Abnormal Lab Results - Last 24 Hours (Table) 06/26/24 Range/Units 11:45 Crossmatch See Detail Microbiology - Last 24 Hours (Table) 06/26/24 09:10 Gram Stain - Preliminary Foot - Right Wound Culture - Preliminary Gram Neg Bacilli
[2024-06-29] MEDS: ZINC OXIDE PASTE (Z-GUARD) 1 APPLIC TOPICAL PRN (10:21)
--- NOTE | 2024-06-29 13:03 | P.PN ---
Subjective Progress Note Date: 06/29/24 74-year-old gentleman with past medical history significant for PAD, multiple vascular procedures including femoral-popliteal bypass, left BKA CABG, GI bleed, anemia-hemoglobin, herniated disc, hypertension, hyperlipidemia, nicotine dependence, daily alcohol use multiple other medical issues. Patient recently was at [facility] on June 17. Apparently he had gone to wound care discovered to be have a significantly decreased hemoglobin around 5, was admitted to ICU. Status post transfusion of 3 units packed RBCs, endoscopy completed with bleeding source not identified, left AMA from the ICU. Patient did not follow-up with PCP, nor wound care. patient reports he has not followed up with vascular surgery in over a month. Reports he had no antibiotics, but had home care coming into his home 3 times a week for wound care of bilateral extremities. Reports wounds worsening over the last couple weeks accompanied by increased tenderness and pain. Denies nausea, vomiting or diarrhea. Denies fevers or chills. Denies chest pain, palpitations or shortness of breath on admission to the ER right foot wounds infested with maggots. Right foot x-ray reported osteomyelitis, afebrile, initially normal WBC, WBC increased this morning to 10.2,ESR elevated, 22 and CRP 1.8. hemoglobin 7.8, platelets 242. Renal function stable, potassium 3.3, supplements ordered. 06/28. Patient seen and examined. Patient underwent aortogram with right lower extremity runoff via left femoral artery access with reconstitution below the knee. States he feels better. 06/29. Patient seen and examined. States he feels the same as yesterday, vascular surgery planning surgery for tomorrow. REVIEW OF SYSTEMS: CONSTITUTIONAL: No fever, no malaise,. CARDIOVASCULAR: No chest pain, no palpitations, no syncope. PULMONARY: No shortness of breath, no cough, GASTROINTESTINAL: No diarrhea, no nausea, no vomiting, no abdominal pain. NEUROLOGICAL: No headaches, no weakness, PHYSICAL EXAMINATION: GENERAL: The patient is alert and oriented x3, not in any acute distress. Chronically ill looking HEENT: Pupils are round and equally reacting to light. EOMI. No scleral icterus. No conjunctival pallor. Normocephalic, atraumatic. No pharyngeal erythema. No thyromegaly. CARDIOVASCULAR: S1 and S2 present. No murmurs, rubs, or gallops. PULMONARY: Chest is clear to auscultation, no wheezing or crackles. ABDOMEN: Soft, nontender, nondistended, normoactive bowel sounds. No palpable organomegaly. MUSCULOSKELETAL: Right foot swelling and erythema, left BKA EXTREMITIES: No cyanosis, clubbing, or pedal edema. NEUROLOGICAL: Gross neurological examination did not reveal any focal deficits. SKIN: No rashes. Assessment and plan acute right foot osteomyelitis Critical limb ischemia right lower extremity Left BKA cellulitis with nonhealing wound Chronic anemia Chronic CHF, systolic dysfunction, EF 35%. History of right solid renal mass, measuring up to 25 mm, further follow-up outpatient Large cystic lesion in the left upper quadrant unclear with this coming from the pancreas versus the kidney versus postsurgical seroma, further follow-up outpatient Recent abdominal aortic aneurysm endovascular repair Colonic diverticulosis Ischemic cardiomyopathy Aortic stenosis Coronary disease with history of CABG Hypertension Hyperlipidemia Nicotine dependence Daily alcohol use Marijuana use Hypokalemia Monitor vital signs Monitor CBC Monitor CMP Continue Plavix, Lipitor Continue IV Zosyn Vascular surgery planning femoral-tibial bypass with CryoVein followed by transmetatarsal amputation on Sunday ID following Labs and medication were reviewed.. Continue same treatment. Continue with symptomatic treatment. Resume home medication. Monitor labs and vitals. DVT and GI prophylaxis. Further recommendations as per clinical course of the patient Dictation was produced using [employer] dictation software. please excuse any grammatical, word or spelling errors. Objective - Vital Signs Vital signs: Vital Signs Temp 97.5 F L 06/29/24 08:00 Pulse 54 L 06/29/24 11:26 Resp 18 06/29/24 11:26 BP 148/68 06/29/24 11:26 Pulse Ox 95 06/29/24 11:26 FiO2 Intake & Output 06/28/24 06/29/24 06/29/24 18:59 06:59 18:59 Intake Total 699 236 Output Total 2600 Balance -1901 236 Weight 56.4 kg Intake: Oral 699 236 Output: Urine 2600 Other: Voiding Method Urinal # Voids 3 1 # Bowel Movements 1 - Labs CBC & Chem 7: 06/27/24 05:38 06/27/24 05:38 Labs: Microbiology - Last 24 Hours (Table) 06/26/24 09:10 Gram Stain - Preliminary Foot - Right Wound Culture - Preliminary Providencia rettgeri Citrobacter freundii complex
--- NOTE | 2024-06-29 13:06 | P.PN ---
Subjective Progress Note Date: 06/28/24 Principal diagnosis: Reason for follow-up is right foot ulcer and osteomyelitis Patient is a 74-year-old male with a past medical history significant for coronary artery disease hypertension hyperlipidemia heart failure with peripheral arterial disease in this patient was status post left below the knee amputation for nonhealing wound to the left lower extremity patient now presenting to the hospital for evaluation of ulceration to the right lower extremity with abnormal x-ray suggestive of osteomyelitis.Patient is status post aortogram with right lower extremity runoff did shows evidence of significant PAD On today's evaluation that is 06/28/2024,the patient remains to be afebrile, patient is on room air not requiring supplemental oxygen and denies any short ness of breath no chest pain or cough.Patient denies having any nausea or vomiting, no abdominal pain and no diarrhea has been reported, pain to the right foot is currently controlled. Patient did not have any new lab work today culture did grew Citrobacter and providentia Objective - Vital Signs Vital signs: Vital Signs Temp 98.1 F 06/28/24 20:17 Pulse 70 06/28/24 20:17 Resp 17 06/28/24 20:17 BP 132/61 06/28/24 20:17 Pulse Ox 98 06/28/24 20:17 FiO2 Intake & Output 06/28/24 06/28/24 06/29/24 06:59 18:59 06:59 Intake Total 699 Output Total 300 2600 Balance -300 -1901 Weight 63 kg Intake: Oral 699 Output: Urine 300 2600 Other: Voiding Method Urinal # Voids 3 1 # Bowel Movements 1 - Exam GENERAL DESCRIPTION: An elderly male lying in bed in no distress RESPIRATORY SYSTEM: Unlabored breathing , decreased breath sounds at bases HEART: S1 S2 regular rate and rhythm , ABDOMEN: Soft , no tenderness EXTREMITIES: Right foot wound is currently dressed - Labs CBC & Chem 7: 06/27/24 05:38 06/27/24 05:38 Labs: Microbiology - Last 24 Hours (Table) 06/26/24 09:10 Gram Stain - Preliminary Foot - Right Wound Culture - Preliminary Providencia rettgeri Citrobacter freundii complex Assessment and Plan (1) Foot osteomyelitis, right Current Visit: Yes Status: Acute Code(s): M86.9 - OSTEOMYELITIS, UNSPECIFIED SNOMED Code(s): 3227147942075242 Plan: 1patient presented to hospital with a worsening wound to the right foot area in this patient who did have significant abnormality seen on the x-ray concerning for possible deeper infection and osteomyelitis 2-patient status post aortogram with evidence of significant PAD vascular surgery planning for CryoVein 3-local culture currently growing gram-negative's especially Citrobacter patient is covered with Zosyn 3.375 g every 8 hours Dictation was produced using [employer] dictation software. please excuse any grammatical, word or spelling errors. Time with Patient: Less than 30
[2024-06-30 07:58] LABS: Anisocytosis Slight; Basophils % (A) 1 %; Eosinophils # (A) 0.3 k/uL (0-0.7); Eosinophils % (A) 3 %; HCT 34.3 % (39.0-53.0); HGB 10.1 gm/dL (13.0-17.5); Hypochromasia Marked; Lymphocytes # (A) 0.4 k/uL (1.0-4.8); Lymphocytes % (A) 5 %; MCH 25.6 pg (25.0-35.0); MCHC 29.3 g/dL (31.0-37.0); MCV 87.3 fL (80.0-100.0); Mean Platelet Volume 7.6; Monocytes # (A) 0.6 k/uL (0-1.0); Monocytes % (A) 8 %; Neutrophils # (A) 6.3 k/uL (1.3-7.7); Neutrophils % (A) 80 %; Platelet Count 346 k/uL (150-450); Poikilocytosis Slight; RBC 3.93 m/uL (4.30-5.90); RDW 16.7 % (11.5-15.5); WBC 7.9 k/uL (3.8-10.6)
[2024-06-30 08:38] LABS: African American GFR (CKD) >90 (>60 ml/min/1.73 sqM); Anion Gap 3 mmol/L; Blood Urea Nitrogen 15 mg/dL (9-20); Calcium 8.6 mg/dL (8.4-10.2); Carbon Dioxide 31 mmol/L (22-30); Chloride 103 mmol/L (98-107); Glucose 84 mg/dL (74-99); Non-African American GFR(CKD) 78 (>60 ml/min/1.73 sqM); Potassium 4.5 mmol/L (3.5-5.1); Sodium 137 mmol/L (137-145)
--- NOTE | 2024-06-30 11:58 | P.PN ---
Subjective Progress Note Date: 06/30/24 Principal diagnosis: Peripheral arterial disease, right foot infection Patient is seen and examined today as a follow-up. He has been afebrile. No acute changes through the weekend. No leukocytosis. He remains on IV antibiotics. Objective - Vital Signs Vital signs: Vital Signs Temp 98.0 F 06/30/24 08:00 Pulse 58 L 06/30/24 08:00 Resp 18 06/30/24 08:00 BP 144/76 06/30/24 08:00 Pulse Ox 95 06/30/24 08:00 FiO2 Intake & Output 06/29/24 06/30/24 06/30/24 18:59 06:59 18:59 Intake Total 578 Output Total 2200 850 1100 Balance -1622 -850 -1100 Weight 60.5 kg Intake: Oral 578 Output: Urine 2200 850 1100 Other: Voiding Method Urinal - Exam General appearance: The patient is alert, oriented, appears in no acute distress. HET: Head is normocephalic and atraumatic. Pupils are equal and reactive. Neck: Supple. Heart: Regular. Lungs: Equal expansion, normal respiratory effort. Abdomen: Soft, nontender, nondistended. Extremities: Left lower extremity with below the knee amputation. Audible bypass graft, left BKA stump with wound and cellulitis. Right foot with multiple ulcers on foot and toes, gangrene fourth and fifth distal tips. Partial great toe and 2nd toe amputation. Neurological: No focal deficits. - Labs CBC & Chem 7: 06/30/24 06:59 06/30/24 06:59 Labs: Abnormal Lab Results - Last 24 Hours (Table) 06/30/24 06/30/24 Range/Units 06:59 06:59 RBC 3.93 L (4.30-5.90) m/uL Hgb 10.1 L (13.0-17.5) gm/dL Hct 34.3 L (39.0-53.0) % MCHC 29.3 L (31.0-37.0) g/dL RDW 16.7 H (11.5-15.5) % Lymphocytes # 0.4 L (1.0-4.8) k/uL Carbon Dioxide 31 H (22-30) mmol/L Microbiology - Last 24 Hours (Table) 06/26/24 09:10 Gram Stain - Preliminary Foot - Right Wound Culture - Preliminary Providencia rettgeri Citrobacter freundii complex Assessment and Plan Assessment: 1. Critical limb ischemia right lower extremity, severe SFA calcific occlusive disease 2. Osteomyelitis right foot 3. Left BKA nonhealing wound with cellulitis 4. Chronic anemia 5. Hypokalemia 6. Peripheral arterial disease Plan: 1. Patient will require right femoral to tibial bypass with CryoVein, possibly Sunday or 2. Patient likely would benefit from right transmetatarsal amputation, timing to be determined 3. Antibiotics per recommendations from infectious disease 4. Rest of of medical management per primary medical team Thank you for this consultation, we will continue to follow. The impression and plan of care has been dictated as directed. Dr. Padilla I performed a history and examination of this patient, discussed the same with the dictator. I agree with the dictator's note ,documented as a scribe. Any additional findings or plans will be noted.
--- NOTE | 2024-06-30 12:43 | P.PN ---
Subjective Progress Note Date: 06/29/24 Principal diagnosis: Reason for follow-up is right foot ulcer and osteomyelitis Patient is a 74-year-old male with a past medical history significant for coronary artery disease hypertension hyperlipidemia heart failure with peripheral arterial disease in this patient was status post left below the knee amputation for nonhealing wound to the left lower extremity patient now presenting to the hospital for evaluation of ulceration to the right lower extremity with abnormal x-ray suggestive of osteomyelitis.Patient is status post aortogram with right lower extremity runoff did shows evidence of significant PAD On today's evaluation that is 06/29/2024,the patient continues to be afebrile, patient is breathing comfortably on room air, the patient denies any shortness of breath no chest pain or cough.Patient denies having any nausea or vomiting, no abdominal pain and no diarrhea has been reported, pain to the right foot is currently controlled. Patient did not have any new lab work today culture did grew Citrobacter and providentia Objective - Vital Signs Vital signs: Vital Signs Temp 97.5 F L 06/29/24 08:00 Pulse 54 L 06/29/24 11:26 Resp 18 06/29/24 11:26 BP 148/68 06/29/24 11:26 Pulse Ox 95 06/29/24 11:26 FiO2 Intake & Output 06/28/24 06/29/24 06/29/24 18:59 06:59 18:59 Intake Total 699 236 Output Total 2600 Balance -1901 236 Weight 56.4 kg Intake: Oral 699 236 Output: Urine 2600 Other: Voiding Method Urinal # Voids 3 1 # Bowel Movements 1 - Exam Elderly male lying in bed in no distress No tachypnea or accessory muscle respiration Unlabored breathing Right foot swelling redness slightly decreased no drainage - Labs CBC & Chem 7: 06/30/24 06:59 06/30/24 06:59 Labs: Microbiology - Last 24 Hours (Table) 06/26/24 09:10 Gram Stain - Preliminary Foot - Right Wound Culture - Preliminary Providencia rettgeri Citrobacter freundii complex Assessment and Plan (1) Foot osteomyelitis, right Current Visit: Yes Status: Acute Code(s): M86.9 - OSTEOMYELITIS, UNSPECIFIED SNOMED Code(s): 2515868420187564 Plan: 1patient presented to hospital with a worsening wound to the right foot area in this patient who did have significant abnormality seen on the x-ray concerning for possible deeper infection and osteomyelitis 2-patient status post aortogram with evidence of significant PAD vascular surgery planning for CryoVein 3-local culture did grew providentia Citrobacter for the patient patient is covered with Zosyn 3.375 g every 8 hours Dictation was produced using [employer] dictation software. please excuse any grammatical, word or spelling errors. Time with Patient: Less than 30
--- NOTE | 2024-06-30 12:44 | P.PN ---
Subjective Progress Note Date: 06/30/24 Principal diagnosis: Reason for follow-up is right foot ulcer and osteomyelitis Patient is a 74-year-old male with a past medical history significant for coronary artery disease hypertension hyperlipidemia heart failure with peripheral arterial disease in this patient was status post left below the knee amputation for nonhealing wound to the left lower extremity patient now presenting to the hospital for evaluation of ulceration to the right lower extremity with abnormal x-ray suggestive of osteomyelitis.Patient is status post aortogram with right lower extremity runoff did shows evidence of significant PAD On today's evaluation that is 06/30/2024, Patient is afebrile patient is currently on room air and denies having any shortness of breath, the patient denies any chest pain or cough, the patient denies any nausea vomiting did not have any abdominal pain and no diarrhea patient pain to the right foot has decreased in intensity. Patient white count 7.9, creatinine 0.96 local culture with providentia and Citrobacter sensitive to Zosyn Objective - Vital Signs Vital signs: Vital Signs Temp 98.0 F 06/30/24 08:00 Pulse 58 L 06/30/24 08:00 Resp 18 06/30/24 08:00 BP 144/76 06/30/24 08:00 Pulse Ox 95 06/30/24 08:00 FiO2 Intake & Output 06/29/24 06/30/24 06/30/24 18:59 06:59 18:59 Intake Total 578 Output Total 2200 850 1100 Balance -5662 -850 -1100 Weight 60.5 kg Intake: Oral 578 Output: Urine 2200 850 1100 Other: Voiding Method Urinal - Exam Elderly male lying in bed in no distress No tachypnea or accessory muscle respiration Unlabored breathing Right foot swelling redness slightly decreased in intensity, no drainage - Labs CBC & Chem 7: 06/30/24 06:59 06/30/24 06:59 Labs: Abnormal Lab Results - Last 24 Hours (Table) 06/30/24 06/30/24 Range/Units 06:59 06:59 RBC 3.93 L (4.30-5.90) m/uL Hgb 10.1 L (13.0-17.5) gm/dL Hct 34.3 L (39.0-53.0) % MCHC 29.3 L (31.0-37.0) g/dL RDW 16.7 H (11.5-15.5) % Lymphocytes # 0.4 L (1.0-4.8) k/uL Carbon Dioxide 31 H (22-30) mmol/L Microbiology - Last 24 Hours (Table) 06/26/24 09:10 Gram Stain - Preliminary Foot - Right Wound Culture - Preliminary Providencia rettgeri Citrobacter freundii complex Assessment and Plan (1) Foot osteomyelitis, right Current Visit: Yes Status: Acute Code(s): M86.9 - OSTEOMYELITIS, UNSPECIFIED SNOMED Code(s): 4039133980224487 Plan: 1patient presented to hospital with a worsening wound to the right foot area in this patient who did have significant abnormality seen on the x-ray concerning for possible deeper infection and osteomyelitis 2-patient status post aortogram with evidence of significant PAD vascular surgery planning for CryoVein 3-local culture did grew drug-resistant providentia and Citrobacter 4-patient is currently being treated with Zosyn 3.375 g every 8 hours, monitor clinical course closely Dictation was produced using [employer] dictation software. please excuse any grammatical, word or spelling errors. Time with Patient: Less than 30
--- NOTE | 2024-07-01 08:21 | P.PN ---
Subjective Progress Note Date: 06/30/24 74-year-old gentleman with past medical history significant for PAD, multiple vascular procedures including femoral-popliteal bypass, left BKA CABG, GI bleed, anemia-hemoglobin, herniated disc, hypertension, hyperlipidemia, nicotine dependence, daily alcohol use multiple other medical issues. Patient recently was at [facility] on June 17. Apparently he had gone to wound care discovered to be have a significantly decreased hemoglobin around 5, was admitted to ICU. Status post transfusion of 3 units packed RBCs, endoscopy completed with bleeding source not identified, left AMA from the ICU. Patient did not follow-up with PCP, nor wound care. patient reports he has not followed up with vascular surgery in over a month. Reports he had no antibiotics, but had home care coming into his home 3 times a week for wound care of bilateral extremities. Reports wounds worsening over the last couple weeks accompanied by increased tenderness and pain. Denies nausea, vomiting or diarrhea. Denies fevers or chills. Denies chest pain, palpitations or shortness of breath on admission to the ER right foot wounds infested with maggots. Right foot x-ray reported osteomyelitis, afebrile, initially normal WBC, WBC increased this morning to 10.2,ESR elevated, 22 and CRP 1.8. hemoglobin 7.8, platelets 242. Renal function stable, potassium 3.3, supplements ordered. 06/28. Patient seen and examined. Patient underwent aortogram with right lower extremity runoff via left femoral artery access with reconstitution below the knee. States he feels better. 06/29. Patient seen and examined. States he feels the same as yesterday, vascular surgery planning surgery for tomorrow. 06/30. Pt seen and evaluated at bedside, he is feeling better today, less painful, no chills or sweats. He is scheduled for cryovein bypass on Sun/. Objective - Vital Signs Vital signs: Vital Signs Temp 97.5 F L 07/01/24 07:51 Pulse 66 07/01/24 07:51 Resp 16 07/01/24 07:51 BP 105/62 07/01/24 07:51 Pulse Ox 95 07/01/24 07:51 FiO2 Intake & Output 06/30/24 07/01/24 07/01/24 18:59 06:59 18:59 Intake Total 358 Output Total 2600 Balance -2242 Intake: Oral 358 Output: Urine 2600 Other: Voiding Method Urinal - Exam Gen: well developed elderly male in NAD CV: RRR, no murmur Abd: soft, nontender Lung: CTAB Ext: R foot erythema - Labs CBC & Chem 7: 06/30/24 06:59 06/30/24 06:59 Labs: Abnormal Lab Results - Last 24 Hours (Table) 06/30/24 Range/Units 06:59 Carbon Dioxide 31 H (22-30) mmol/L Microbiology - Last 24 Hours (Table) 06/26/24 09:10 Anaerobic Culture - Preliminary Foot - Right 06/26/24 09:10 Gram Stain - Preliminary Foot - Right Wound Culture - Preliminary Providencia rettgeri Citrobacter freundii complex Assessment and Plan Plan: Continue with IV abx and current medical regimen. Await surgery. Continue to closely follow renal function and cultures
--- NOTE | 2024-07-01 11:09 | P.PN ---
Subjective Progress Note Date: 07/01/24 Principal diagnosis: Peripheral arterial disease, right foot infection Patient seen and examined today as a follow-up. No acute changes through the night. He remains afebrile. Still has pain to the right lower extremity, pain improved when leg is hanging dependent over the bed. Objective - Vital Signs Vital signs: Vital Signs Temp 97.5 F L 07/01/24 07:51 Pulse 66 07/01/24 07:51 Resp 16 07/01/24 07:51 BP 105/62 07/01/24 07:51 Pulse Ox 95 07/01/24 07:51 FiO2 Intake & Output 06/30/24 07/01/24 07/01/24 18:59 06:59 18:59 Intake Total 358 Output Total 2600 Balance -2242 Intake: Oral 358 Output: Urine 2600 Other: Voiding Method Urinal - Exam General appearance: The patient is alert, oriented, appears in no acute distress. HET: Head is normocephalic and atraumatic. Pupils are equal and reactive. Neck: Supple. Heart: Regular. Lungs: Equal expansion, normal respiratory effort. Abdomen: Soft, nontender, nondistended. Extremities: Left lower extremity with below the knee amputation. Audible bypass graft, left BKA stump with wound and cellulitis. Right foot with multiple ulcers on foot and toes, gangrene fourth and fifth distal tips. Partial great toe and 2nd toe amputation. Neurological: No focal deficits. - Labs CBC & Chem 7: 06/30/24 06:59 06/30/24 06:59 Labs: Abnormal Lab Results - Last 24 Hours (Table) 06/30/24 Range/Units 06:59 Carbon Dioxide 31 H (22-30) mmol/L Microbiology - Last 24 Hours (Table) 06/26/24 09:10 Anaerobic Culture - Preliminary Foot - Right 06/26/24 09:10 Gram Stain - Preliminary Foot - Right Wound Culture - Preliminary Providencia rettgeri Citrobacter freundii complex Assessment and Plan Assessment: 1. Critical limb ischemia right lower extremity, severe SFA calcific occlusive disease 2. Osteomyelitis right foot 3. Left BKA nonhealing wound with cellulitis 4. Chronic anemia 5. Hypokalemia 6. Peripheral arterial disease Plan: 1. Patient will require right femoral to tibial bypass with CryoVein, timing to be determined 2. Patient likely would benefit from right transmetatarsal amputation, timing to be determined 3. Antibiotics per recommendations from infectious disease 4. Rest of of medical management per primary medical team Thank you for this consultation, we will continue to follow. The impression and plan of care has been dictated as directed. Dr. Padilla I performed a history and examination of this patient, discussed the same with the dictator. I agree with the dictator's note ,documented as a scribe. Any additional findings or plans will be noted.
[2024-07-01 14:10] VITALS: BMI 20.2
--- NOTE | 2024-07-01 22:34 | P.PN ---
Subjective Progress Note Date: 07/01/24 Principal diagnosis: Reason for follow-up is right foot ulcer and osteomyelitis Patient is a 74-year-old male with a past medical history significant for coronary artery disease hypertension hyperlipidemia heart failure with peripheral arterial disease in this patient was status post left below the knee amputation for nonhealing wound to the left lower extremity patient now presenting to the hospital for evaluation of ulceration to the right lower extremity with abnormal x-ray suggestive of osteomyelitis.Patient is status post aortogram with right lower extremity runoff did shows evidence of significant PAD On today's evaluation that is 07/01/2024, patient has been afebrile, patient is breathing comfortably and is currently on room air, patient denies having any significant cough no chest pain, patient denies nausea vomiting or diarrhea and no abdominal pain pain to the right foot however controlled with pain medication no new symptoms. Patient white count 7.9 creatinine 0.96 chief cultures growing Citrobacter procidentia they have been sensitive to Zosyn and now also growing Pseudomonas with sensitivities pending Objective - Vital Signs Vital signs: Vital Signs Temp 98.1 F 07/01/24 11:11 Pulse 69 07/01/24 11:11 Resp 16 07/01/24 11:11 BP 135/72 07/01/24 11:11 Pulse Ox 96 07/01/24 11:11 FiO2 Intake & Output 06/30/24 07/01/24 07/01/24 18:59 06:59 18:59 Intake Total 358 Output Total 2600 1200 Balance -2242 -1200 Weight 60.5 kg Intake: Oral 358 Output: Urine 2600 1200 Other: Voiding Method Urinal # Bowel Movements 1 - Exam Elderly male lying in bed in no distress No tachypnea or accessory muscle respiration Unlabored breathing Right foot swelling redness slightly decreased, no drainage noticed - Labs CBC & Chem 7: 06/30/24 06:59 06/30/24 06:59 Labs: Microbiology - Last 24 Hours (Table) 06/26/24 09:10 Anaerobic Culture - Preliminary Foot - Right Pseudomonas aeruginosa 06/26/24 09:10 Gram Stain - Final Foot - Right Wound Culture - Final Providencia rettgeri Citrobacter freundii complex Kerromeo ollieiorgutierrez Assessment and Plan (1) Foot osteomyelitis, right Current Visit: Yes Status: Acute Code(s): M86.9 - OSTEOMYELITIS, UNSPECIFIED SNOMED Code(s): 6612910860175193 Plan: 1patient presented to hospital with a worsening wound to the right foot area in this patient who did have significant abnormality seen on the x-ray concerning for possible deeper infection and osteomyelitis 2-patient status post aortogram with evidence of significant PAD vascular surgery planning for CryoVein 3-local culture did grew drug-resistant providentia and Citrobacter, also growing Pseudomonas with sensitivities pending 4-patient to continue with Zosyn 3.375 g every 8 hours, and will wait for Ps eudomonas sensitivity to finalize Dictation was produced using [employer]. please excuse any grammatical, word or spelling errors. Time with Patient: Less than 30
[2024-07-02 06:01] LABS: African American GFR (CKD) 71 (>60 ml/min/1.73 sqM); Anion Gap 2 mmol/L; Blood Urea Nitrogen 20 mg/dL (9-20); Calcium 8.7 mg/dL (8.4-10.2); Carbon Dioxide 32 mmol/L (22-30); Chloride 102 mmol/L (98-107); Glucose 88 mg/dL (74-99); Non-African American GFR(CKD) 61 (>60 ml/min/1.73 sqM); Potassium 3.8 mmol/L (3.5-5.1); Sodium 136 mmol/L (137-145)
[2024-07-02 06:11] LABS: Anisocytosis Slight; HCT 32.9 % (39.0-53.0); Hypochromasia Marked; MCH 25.9 pg (25.0-35.0); MCHC 30.5 g/dL (31.0-37.0); MCV 85.1 fL (80.0-100.0); Mean Platelet Volume 7.7; Platelet Count 313 k/uL (150-450); Poikilocytosis Moderate; RBC 3.87 m/uL (4.30-5.90); RDW 16.7 % (11.5-15.5)
--- NOTE | 2024-07-02 08:25 | P.PN ---
Subjective Progress Note Date: 07/01/24 74-year-old gentleman with past medical history significant for PAD, multiple vascular procedures including femoral-popliteal bypass, left BKA CABG, GI bleed, anemia-hemoglobin, herniated disc, hypertension, hyperlipidemia, nicotine dependence, daily alcohol use multiple other medical issues. Patient recently was at [facility] on June 17. Apparently he had gone to wound care discovered to be have a significantly decreased hemoglobin around 5, was admitted to ICU. Status post transfusion of 3 units packed RBCs, endoscopy completed with bleeding source not identified, left AMA from the ICU. Patient did not follow-up with PCP, nor wound care. patient reports he has not followed up with vascular surgery in over a month. Reports he had no antibiotics, but had home care coming into his home 3 times a week for wound care of bilateral extremities. Reports wounds worsening over the last couple weeks accompanied by increased tenderness and pain. Denies nausea, vomiting or diarrhea. Denies fevers or chills. Denies chest pain, palpitations or shortness of breath on admission to the ER right foot wounds infested with maggots. Right foot x-ray reported osteomyelitis, afebrile, initially normal WBC, WBC increased this morning to 10.2,ESR elevated, 22 and CRP 1.8. hemoglobin 7.8, platelets 242. Renal function stable, potassium 3.3, supplements ordered. 06/28. Patient seen and examined. Patient underwent aortogram with right lower extremity runoff via left femoral artery access with reconstitution below the knee. States he feels better. 06/29. Patient seen and examined. States he feels the same as yesterday, vascular surgery planning surgery for tomorrow. 06/30. Pt seen and evaluated at bedside, he is feeling better today, less painful, no chills or sweats. He is scheduled for cryovein bypass on Sun/. 07/01. Pt seen and evaluated at bedside, he is feeling about the same, no fever, chills, sweats. Foot pain is controlled. He is eager for surgery. Objective - Vital Signs Vital signs: Vital Signs Temp 97.9 F 07/02/24 06:52 Pulse 68 07/02/24 06:52 Resp 18 07/02/24 06:52 BP 102/62 07/02/24 06:52 Pulse Ox 96 07/02/24 04:00 FiO2 Intake & Output 07/01/24 07/02/24 07/02/24 18:59 06:59 18:59 Output Total 2700 400 Balance -2700 -400 Weight 60.5 kg Output: Urine 2700 400 Other: Voiding Method Urinal Urinal # Bowel Movements 1 - Exam Gen: well developed elderly male in NAD CV: RRR, no murmur Abd: soft, nontender Lung: CTAB Ext: R foot erythema - Labs CBC & Chem 7: 07/02/24 05:27 07/02/24 05:27 Labs: Abnormal Lab Results - Last 24 Hours (Table) 07/02/24 07/02/24 Range/Units 05:27 05:27 RBC 3.87 L (4.30-5.90) m/uL Hgb 10.0 L (13.0-17.5) gm/dL Hct 32.9 L (39.0-53.0) % MCHC 30.5 L (31.0-37.0) g/dL RDW 16.7 H (11.5-15.5) % Sodium 136 L (137-145) mmol/L Carbon Dioxide 32 H (22-30) mmol/L Microbiology - Last 24 Hours (Table) 06/26/24 09:10 Anaerobic Culture - Preliminary Foot - Right Pseudomonas aeruginosa 06/26/24 09:10 Gram Stain - Final Foot - Right Wound Culture - Final Providencia rettgeri Citrobacter freundii complex Iman leviniorgutierrez Assessment and Plan Plan: Continue with IV abx and current medical regimen. Await surgery. Continue to closely follow renal function and cultures
[2024-07-02] MEDS: MORPHINE SULFATE 4 MG/ML SYRINGE IVP PRN (13:04)
[2024-07-02] MEDS: IV FLUID CONTINUATION 1,000 ML IV ONE (13:44)
[2024-07-02] MEDS: IV FLUID CONTINUATION 900 ML IV ONE ×2 (13:44)
[2024-07-02] MEDS ORDERED: HYDROmorphone 0.5 MG/0.5 ML SYRINGE IVP PRN (13:59)
[2024-07-02] MEDS: fentaNYL (PF) 50 MCG/ML 2 ML AMP IVP PRN (14:10)
[2024-07-02] MEDS: MIDAZOLAM 2 MG/2 ML VIAL IV ONE (14:10)
--- NOTE | 2024-07-02 15:47 | P.PN ---
Subjective Progress Note Date: 07/02/24 H&P Date: 06/26/24 Chief Complaint: Osteomyelitis Is a 74-year-old gentleman with past medical history significant for PAD, multiple vascular procedures including femoral-popliteal bypass, left BKA CABG, GI bleed, anemia-hemoglobin, herniated disc, hypertension, hyperlipidemia, nicotine dependence, daily alcohol use multiple other medical issues. Patient recently was at [facility] on June 17. Apparently he had gone to wound care discovered to be have a significantly decreased hemoglobin around 5, was admitted to ICU. Status post transfusion of 3 units packed RBCs, endoscopy completed with bleeding source not identified, left AMA from the ICU. Patient did not follow-up with PCP, nor wound care. patient reports he has not followed up with vascular surgery in over a month. Reports he had no antibiotics, but had home care coming into his home 3 times a week for wound care of bilateral extremities. Reports wounds worsening over the last couple weeks accompanied by increased tenderness and pain. Denies nausea, vomiting or diarrhea. Denies fevers or chills. Denies chest pain, palpitations or shortness of breath on admission to the ER right foot wounds infested with maggots. Right foot x-ray reported osteomyelitis, afebrile, initially normal WBC, WBC increased this morning to 10.2,ESR elevated, 22 and CRP 1.8. hemoglobin 7.8, platelets 242. Renal function stable, potassium 3.3, supplements ordered. 06/28. Patient seen and examined. Patient underwent aortogram with right lower extremity runoff via left femoral artery access with reconstitution below the knee. States he feels better. 06/29. Patient seen and examined. States he feels the same as yesterday, vascular surgery planning surgery for tomorrow. 06/30. Pt seen and evaluated at bedside, he is feeling better today, less painful, no chills or sweats. He is scheduled for cryovein bypass on Sun/. 07/01. Pt seen and evaluated at bedside, he is feeling about the same, no fever, chills, sweats. Foot pain is controlled. He is eager for surgery. 07/02/2024 scheduled for OR today. Reports fairly mild achiness of the affected foot. Reports positive chills and sweats at night. Denies dizziness, lightheadedness or headache. Denies chest pain, palpitations or shortness of breath. Creatinine increased 1.17 Objective - Vital Signs Vital signs: Vital Signs Temp 97.1 F L 07/02/24 13:47 Pulse 67 07/02/24 14:43 Resp 16 07/02/24 14:43 BP 116/58 07/02/24 14:43 Pulse Ox 100 07/02/24 14:43 FiO2 Intake & Output 07/01/24 07/02/24 07/02/24 18:59 06:59 18:59 Output Total 2700 400 1200 Balance -2700 -400 -1200 Weight 60.5 kg Output: Urine 2700 400 1200 Other: Voiding Method Urinal Urinal Urinal # Bowel Movements 1 - Exam EXAM: Gen: well developed elderly male in NAD CV: RRR, no murmur Abd: soft, nontender Lung: CTAB Ext: R foot erythema - Labs CBC & Chem 7: 07/02/24 05:27 07/02/24 05:27 Labs: Abnormal Lab Results - Last 24 Hours (Table) 07/02/24 07/02/24 Range/Units 05:27 05:27 RBC 3.87 L (4.30-5.90) m/uL Hgb 10.0 L (13.0-17.5) gm/dL Hct 32.9 L (39.0-53.0) % MCHC 30.5 L (31.0-37.0) g/dL RDW 16.7 H (11.5-15.5) % Sodium 136 L (137-145) mmol/L Carbon Dioxide 32 H (22-30) mmol/L Microbiology - Last 24 Hours (Table) 06/26/24 09:10 Anaerobic Culture - Final Foot - Right Pseudomonas aeruginosa Assessment and Plan Assessment: Infected right foot wounds, right digits with osteomyelitis Left BKA cellulitis with nonhealing wound Chronic anemia Chronic CHF, systolic dysfunction, EF 35%. History of right solid renal mass, measuring up to 25 mm, further follow-up outpatient Large cystic lesion in the left upper quadrant unclear with this coming from the pancreas versus the kidney versus postsurgical seroma, further follow-up outpatient Recent abdominal aortic aneurysm endovascular repair Colonic diverticulosis Ischemic cardiomyopathy Aortic stenosis Coronary disease with history of CABG Hypertension Hyperlipidemia Nicotine dependence Daily alcohol use Marijuana use Hypokalemia Plan: Continue on current medication regimen ,monitoring and symptomatic treatment. NPO,Scheduled for surgery today, maintain IV antibiotics and current medical regimen. The impression and plan of care has been dictated as directed. : I performed a history and examination of this patient, discussed the same with the dictator. I agree with the dictator's note ,documented as a scribe. Any additional findings or plans will be noted.
[2024-07-02] MEDS ORDERED: ROCURONIUM 10 MG/ML (5 ML VIAL) IV ONE (15:57)
[2024-07-02] MEDS ORDERED: GLYCOPYRROLATE 0.2 MG/ML 2 ML VIAL ONE (15:57)
[2024-07-02] MEDS ORDERED: LIDOCAINE 1% INJ 10MG/ML (20 ML MDV) ONE (15:57)
[2024-07-02] MEDS ORDERED: MIDAZOLAM 2 MG/2 ML VIAL ONE (15:57)
[2024-07-02] MEDS ORDERED: HEPARIN SODIUM,PORCINE 10,000 UNIT/ML 1 ML VIAL ONE (15:57)
[2024-07-02] MEDS ORDERED: fentaNYL (PF) 50 MCG/ML 2 ML AMP ONE (15:57)
[2024-07-02] MEDS ORDERED: NEOSTIGMINE 1 MG/ML 10 ML VIAL ONE (15:57)
[2024-07-02] MEDS ORDERED: ETOMIDATE 2 MG/ML 10 ML VIAL ONE (15:57)
[2024-07-02] MEDS ORDERED: PHENYLEPHRINE-0.9% NACL SYG 1,000 MCG/10 ML SYRINGE ONE (15:57)
[2024-07-02] MEDS: ceFAZolin 4,000 MG in SODIUM CHLORIDE 0.9% 1,000 ML IRRIGATION ONE (17:18)
[2024-07-02] MEDS: THROMBIN (BOVINE) 5,000 UNIT VIAL TOPICAL ONE ×2 (17:18)
[2024-07-02] MEDS: HEPARIN SODIUM,PORCINE 10,000 UNIT in SODIUM CHLORIDE 0.9% 1,000 ML IRRIGATION ONE (17:19)
[2024-07-02] MEDS: DEXTROSE 5%-LACTATED RINGERS 1,000 ML IV ONE (17:19)
[2024-07-02] MEDS: HEPARIN SODIUM,PORCINE 10,000 UNIT in LACTATED RINGERS 1,000 ML IRRIGATION ONE (17:20)
--- NOTE | 2024-07-02 19:44 | P.OP ---
Date of Procedure: 07/02/24 Description of Procedure: Preoperative diagnosis: Right lower extremity critical limb ischemia, superficial femoral artery occlusion with femoral artery occlusive disease Postoperative diagnosis: Same Procedure: Right femoral-posterior tibial artery bypass with cryo-vein graft Surgeon: Tay Padilla D.O. web press operator assistant: Jojo Reyna D.O. Anesthesia: General Estimated blood loss: 50 cc Complications: None Condition: Stable Disposition: Multiphasic PT signal and good capillary refill Indication for procedure: 74-year-old gentleman with history of critical limb ischemia of the left lower extremity who ultimately ended up with an below-knee amputation presented to the hospital secondary to right lower extremity critical limb ischemia with toe dry gangrene. He underwent angiogram that demonstrated right common femoral and superficial femoral artery occlusive disease with occlusion at the midportion of the superficial femoral artery with reconstitution distally at the tibioperoneal trunk and extending to the posterior tibial artery. Operative narrative: After written and informed consent was obtained from the patient all risks benefits and competitions were described the patient is brought to the operative suite and laid in a supine position. The area of the abdomen, right lower extremity was prepped and draped in usual sterile fashion after appropriate anesthetic was performed per the anesthesiologist. A timeout was performed in normal fashion. Antibiotics were administered prior to incision. A oblique incision was created at the right groin and dissection was carried down to the common femoral artery. The common femoral, superficial femoral and profundus femoris arteries were dissected free in a circumferential manner and controlled with vessel loops. Attention was then placed distally and a transverse incision was created on the medial aspect of the lower leg just b elow the knee with a 15 blade scalpel. Dissection was then carried down with electrocautery through the fascia to the posterior tibial artery and tibioperoneal trunk was then dissected free in a circumferential manner and controlled with vessel loops. Utilizing a tunneler a tunnel was created from the below-knee incision to the groin incision. Patient was then administered heparin. Arteriotomy was then created with 11 blade scalpel and extended with Pott Knox scissors. Dense plaque was encountered and endarterectomy with patch angioplasty was indicated and performed in normal fashion. Proximal blood flow was brisk and pulsatile once endarterectomy was performed. Patch angioplasty was then performed with 6-0 Prolene suture and bovine pericardial patch in a running fashion. Once completed the CryoVein was prepped and utilized for bypass. An incision was then created and the patch and extended with Torresedson Quach scissors. The CryoVein was then spatulated and end-to-side viky stomosis was then created with 6-0 Prolene suture in a running fashion. Good backbleeding was noted from the profunda and good brisk forward bleeding was noted from the artery. Final sutures were then placed good pulsatile blood flow was noted within the vein bypass. The vein was then tunneled through the tunneler in normal fashion. The vein was then spatulated and cut to size distally. The posterior tibial artery was then controlled and arteriotomy was created with 11 blade scalpel and extended with Pott Knox scissors. There was good backbleeding noted. An end-to-side anastomosis was created with 6-0 Prolene suture in a running fashion. Prior to last sutures being placed backbleeding was once again assessed which was adequate and proximal control was released revealing good pulsatile blood flow. Final sutures were placed and good pulsatile blood flow was noted within the bypass. Doppler signals were then noted distal to the bypass and were multiphasic at the ankle. The areas were then copiously irrigated with antibiotic solution. The incisions were then closed in a multilayer fashion after hemostasis was assured with Gelfoam and thrombin and the skin was then cleansed and dressings were placed. The patient tolerated procedure well was sent to PACU for recovery. Patient had good brisk capillary refill in the foot and due to the fact that he has dry gangrene at the toes we will see if it demarcates and heals prior to any transmetatarsal amputation.
[2024-07-02] MEDS: DEXAMETHASONE SOD PHOSPHATE 4 MG/ML 1 ML VIAL IV ONE (20:33)
[2024-07-02] MEDS: LACTATED RINGERS 1,000 ML IV SCH (20:33)
[2024-07-02] MEDS: ONDANSETRON 4 MG/2 ML VIAL IVP ONE (20:33)
[2024-07-02] MEDS: RIVAROXABAN 2.5 MG TABLET PO SCH (21:58)
[2024-07-03] MEDS: SODIUM CHLORIDE 0.9% 1,000 ML IV ONE (04:18)
[2024-07-03 05:59] LABS: Anisocytosis Slight; Basophils % (A) 0 %; Eosinophils # (A) 0.1 k/uL (0-0.7); Eosinophils % (A) 1 %; HCT 27.6 % (39.0-53.0); Hypochromasia Marked; Lymphocytes # (A) 0.3 k/uL (1.0-4.8); Lymphocytes % (A) 3 %; MCH 25.8 pg (25.0-35.0); MCHC 30.7 g/dL (31.0-37.0); Mean Platelet Volume 7.3; Monocytes # (A) 0.8 k/uL (0-1.0); Monocytes % (A) 7 %; Neutrophils % (A) 87 %; Platelet Count 277 k/uL (150-450); Poikilocytosis Moderate; RBC 3.29 m/uL (4.30-5.90); RDW 16.7 % (11.5-15.5); WBC 10.4 k/uL (3.8-10.6)
[2024-07-03 06:01] LABS: HGB 8.5 gm/dL (13.0-17.5)
[2024-07-03] MEDS ORDERED: ONDANSETRON 4 MG/2 ML VIAL IVP PRN (10:07)
[2024-07-03] MEDS: NICOTINE 21MG/24HR PATCH TRANSDERM SCH (11:16)
[2024-07-03 11:27] LABS: African American GFR (CKD) >90 (>60 ml/min/1.73 sqM); Anion Gap 3 mmol/L; Blood Urea Nitrogen 16 mg/dL (9-20); Calcium 8.3 mg/dL (8.4-10.2); Carbon Dioxide 24 mmol/L (22-30); Chloride 110 mmol/L (98-107); Glucose 87 mg/dL (74-99); Non-African American GFR(CKD) 87 (>60 ml/min/1.73 sqM); Potassium 3.8 mmol/L (3.5-5.1); Sodium 137 mmol/L (137-145)
--- NOTE | 2024-07-03 11:36 | P.PN ---
Subjective Progress Note Date: 07/03/24 Principal diagnosis: Peripheral arterial disease, right foot infection Patient seen and examined today as a follow-up. He is postop day #1 for right lower extremity fem-tib bypass. No acute changes through the night. Lower extremity pain improving. Hemoglobin 8.5 platelet count 277,000 Objective - Vital Signs Vital signs: Vital Signs Temp 97.5 F L 07/02/24 21:00 Pulse 87 07/03/24 04:00 Resp 18 07/03/24 08:00 BP 113/62 07/03/24 08:00 Pulse Ox 96 07/03/24 04:00 FiO2 Intake & Output 07/02/24 07/03/24 07/03/24 18:59 06:59 18:59 Intake Total 1304 50 100 Output Total 1200 700 Balance 104 -650 100 Weight 61.5 kg Intake: IV 1304 50 Oral 100 Output: Urine 1200 650 Uretheral (Reyna) 250 Estimated Blood Loss 50 Other: Voiding Method Urinal Indwelling Catheter External Catheter - Exam General appearance: The patient is alert, oriented, appears in no acute distress. HET: Head is normocephalic and atraumatic. Pupils are equal and reactive. Neck: Supple. Heart: Regular. Lungs: Equal expansion, normal respiratory effort. Abdomen: Soft, nontender, nondistended. Extremities: Left lower extremity with below the knee amputation. Right lower extremity incisions well-approximated with scant amount of oozing. Right foot with multiple wounds. [place], warm with good capillary refill. Neurological: No focal deficits. - Labs CBC & Chem 7: 07/03/24 05:25 07/03/24 10:37 Labs: Abnormal Lab Results - Last 24 Hours (Table) 07/03/24 07/03/24 Range/Units 05:25 10:37 RBC 3.29 L (4.30-5.90) m/uL Hgb 8.5 L D (13.0-17.5) gm/dL Hct 27.6 L (39.0-53.0) % MCHC 30.7 L (31.0-37.0) g/dL RDW 16.7 H (11.5-15.5) % Neutrophils # 9.0 H (1.3-7.7) k/uL Lymphocytes # 0.3 L (1.0-4.8) k/uL Chloride 110 H (98-107) mmol/L Calcium 8.3 L (8.4-10.2) mg/dL Microbiology - Last 24 Hours (Table) 06/26/24 09:10 Anaerobic Culture - Final Foot - Right Pseudomonas aeruginosa Assessment and Plan Assessment: 1. Critical limb ischemia right lower extremity, severe SFA calcific occlusive disease status post right femoral-tibial bypass with CryoVein 2. Osteomyelitis right foot 3. Left BKA nonhealing wound with cellulitis, improved 4. Chronic anemia 5. Hypokalemia 6. Peripheral arterial disease Plan: 1. Consult to physical therapy 2. Will allow right foot to demarcate. No plans on transmetatarsal amputation at this time 3. Antibiotics per recommendations from infectious disease 4. Rest of of medical management per primary medical team Thank you for this consultation, we will continue to follow. The impression and plan of care has been dictated as directed. Dr. Romero I performed a history and examination of this patient, discussed the same with the dictator. I agree with the dictator's note ,documented as a scribe. Any additional findings or plans will be noted.
--- NOTE | 2024-07-03 13:11 | P.PN ---
Subjective Progress Note Date: 07/02/24 Principal diagnosis: Reason for follow-up is right foot ulcer and osteomyelitis Patient is a 74-year-old male with a past medical history significant for coronary artery disease hypertension hyperlipidemia heart failure with peripheral arterial disease in this patient was status post left below the knee amputation for nonhealing wound to the left lower extremity patient now presenting to the hospital for evaluation of ulceration to the right lower extremity with abnormal x-ray suggestive of osteomyelitis.Patient is status post aortogram with right lower extremity runoff did shows evidence of significant PAD On today's evaluation that is 07/02/2024, Patient is afebrile this morning patient denies having any chest pain shortness of breath or cough, the patient is currently on room air, patient denies any abdominal pain no diarrhea no nausea no vomiting, no worsening pain to the right foot wound. Patient white count 6.0, creatinine 0.17 Objective - Vital Signs Vital signs: Vital Signs Temp 98.1 F 07/02/24 12:00 Pulse 88 07/02/24 12:00 Resp 16 07/02/24 12:00 BP 168/74 07/02/24 12:00 Pulse Ox 96 07/02/24 12:00 FiO2 Intake & Output 07/01/24 07/02/24 07/02/24 18:59 06:59 18:59 Output Total 2700 400 1200 Balance -2700 -400 -1200 Weight 60.5 kg Output: Urine 2700 400 1200 Other: Voiding Method Urinal Urinal Urinal # Bowel Movements 1 - Exam GENERAL DESCRIPTION: An elderly male lying in bed in no distress RESPIRATORY SYSTEM: Unlabored breathing , decreased breath sounds at bases HEART: S1 S2 regular rate and rhythm , ABDOMEN: Soft , no tenderness EXTREMITIES: Right foot swelling redness slightly decreased, no drainage noticed - Labs CBC & Chem 7: 07/03/24 05:25 07/03/24 10:37 Labs: Abnormal Lab Results - Last 24 Hours (Table) 07/02/24 07/02/24 Range/Units 05:27 05:27 RBC 3.87 L (4.30-5.90) m/uL Hgb 10.0 L (13.0-17.5) gm/dL Hct 32.9 L (39.0-53.0) % MCHC 30.5 L (31.0-37.0) g/dL RDW 16.7 H (11.5-15.5) % Sodium 136 L (137-145) mmol/L Carbon Dioxide 32 H (22-30) mmol/L Microbiology - Last 24 Hours (Table) 06/26/24 09:10 Anaerobic Culture - Preliminary Foot - Right Pseudomonas aeruginosa 06/26/24 09:10 Gram Stain - Final Foot - Right Wound Culture - Final Providencia rettgeri Citrobacter freundii complex Kerromeo leviniorgutierrez Assessment and Plan (1) Foot osteomyelitis, right Current Visit: Yes Status: Acute Code(s): M86.9 - OSTEOMYELITIS, UNSPECIFIED SNOMED Code(s): 2569073342702353 Plan: 1patient presented to hospital with a worsening wound to the right foot area in this patient who did have significant abnormality seen on the x-ray concerning for possible deeper infection and osteomyelitis 2-patient status post aortogram with evidence of significant PAD vascular surgery planning for CryoVein 3-local culture did grew drug-resistant providentia and Citrobacter, also growing Pseudomonas with sensitivities pending 4-patient to continue with Zosyn 3.375 g every 8 hours, currently waiting for the Pseudomonas sensitive to finalize to determine discharge antibiotics Dictation was produced using [employer] dictation software. please excuse any grammatical, word or spelling errors. Time with Patient: Less than 30
--- NOTE | 2024-07-03 14:05 | P.PN ---
Subjective Progress Note Date: 06/26/24 H&P Date: 06/26/24 Chief Complaint: Osteomyelitis Is a 74-year-old gentleman with past medical history significant for PAD, multiple vascular procedures including femoral-popliteal bypass, left BKA CABG, GI bleed, anemia-hemoglobin, herniated disc, hypertension, hyperlipidemia, nicotine dependence, daily alcohol use multiple other medical issues. Patient recently was at [facility] on June 17. Apparently he had gone to wound care discovered to be have a significantly decreased hemoglobin around 5, was admitted to ICU. Status post transfusion of 3 units packed RBCs, endoscopy completed with bleeding source not identified, left AMA from the ICU. Patient did not follow-up with PCP, nor wound care. patient reports he has not followed up with vascular surgery in over a month. Reports he had no antibiotics, but had home care coming into his home 3 times a week for wound care of bilateral extremities. Reports wounds worsening over the last couple weeks accompanied by increased tenderness and pain. Denies nausea, vomiting or diarrhea. Denies fevers or chills. Denies chest pain, palpitations or shortness of breath on admission to the ER right foot wounds infested with maggots. Right foot x-ray reported osteomyelitis, afebrile, initially normal WBC, WBC increased this morning to 10.2,ESR elevated, 22 and CRP 1.8. hemoglobin 7.8, platelets 242. Renal function stable, potassium 3.3, supplements ordered. 06/28. Patient seen and examined. Patient underwent aortogram with right lower extremity runoff via left femoral artery access with reconstitution below the knee. States he feels better. 06/29. Patient seen and examined. States he feels the same as yesterday, vascular surgery planning surgery for tomorrow. 06/30. Pt seen and evaluated at bedside, he is feeling better today, less painful, no chills or sweats. He is scheduled for cryovein bypass on Sun/. 07/01. Pt seen and evaluated at bedside, he is feeling about the same, no fever, chills, sweats. Foot pain is controlled. He is eager for surgery. 07/02/2024 scheduled for OR today. Reports fairly mild achiness of the affected foot. Reports positive chills and sweats at night. Denies dizziness, lightheadedness or headache. Denies chest pain, palpitations or shortness of breath. Creatinine increased 1.17 07/03/2024 status post right lower extremity fem-tib bypass, postop day #1. Tolerated procedure well. Currently reporting only foot pain, rated at a 7. Soft blood pressures throughout the night received 1 L fluid bolus. Hemoglobin 8.5, platelets 277. Blood pressures currently soft, antihypertensives and diuretics discontinued.BMP pending. Afebrile, normal WBC. Denies chest pain, palpitations or shortness of breath. Objective - Vital Signs Vital signs: Vital Signs Temp 98.0 F 07/03/24 12:00 Pulse 82 07/03/24 12:00 Resp 16 07/03/24 12:00 BP 101/45 07/03/24 12:00 Pulse Ox 96 07/03/24 12:00 FiO2 Intake & Output 07/02/24 07/03/24 07/03/24 18:59 06:59 18:59 Intake Total 1304 50 100 Output Total 1200 700 Balance 104 -650 100 Weight 61.5 kg Intake: IV 1304 50 Oral 100 Output: Urine 1200 650 Uretheral (Reyna) 250 Estimated Blood Loss 50 Other: Voiding Method Urinal Indwelling Catheter External Catheter - Exam EXAM: Gen: well developed elderly male in NAD CV: RRR, no murmur Abd: soft, nontender Lung: CTAB Ext: R lower extremity pink, warmer, dressing with shadowing, multiple wounds , Doppler pulses,left BKA Microbiology 06/26/24 09:10 Foot - Right Anaerobic Culture - Final Pseudomonas aeruginosa 06/26/24 09:10 Foot - Right Gram Stain - Final 06/26/24 09:10 Foot - Right Wound Culture - Final Providencia rettgeri Citrobacter freundii complex Kerstersia gyiorum - Labs CBC & Chem 7: 07/03/24 05:25 07/03/24 10:37 Labs: Abnormal Lab Results - Last 24 Hours (Table) 07/03/24 07/03/24 Range/Units 05:25 10:37 RBC 3.29 L (4.30-5.90) m/uL Hgb 8.5 L D (13.0-17.5) gm/dL Hct 27.6 L (39.0-53.0) % MCHC 30.7 L (31.0-37.0) g/dL RDW 16.7 H (11.5-15.5) % Neutrophils # 9.0 H (1.3-7.7) k/uL Lymphocytes # 0.3 L (1.0-4.8) k/uL Chloride 110 H (98-107) mmol/L Calcium 8.3 L (8.4-10.2) mg/dL Microbiology - Last 24 Hours (Table) 06/26/24 09:10 Anaerobic Culture - Final Foot - Right Pseudomonas aeruginosa Assessment and Plan Assessment: Infected right foot wounds, right digits with osteomyelitis. Right lower extremity critical limb ischemia, superficial femoral artery occlusion with femoral artery occlusive disease, status post right lower extremity fem-tib bypass Left BKA cellulitis with nonhealing wound, cellulitis, improving PAD Chronic anemia Chronic CHF, systolic dysfunction, EF 35%. History of right solid renal mass, measuring up to 25 mm, further follow-up outpatient Large cystic lesion in the left upper quadrant unclear with this coming from the pancreas versus the kidney versus postsurgical seroma, further follow-up out patient Recent abdominal aortic aneurysm endovascular repair Colonic diverticulosis Ischemic cardiomyopathy Aortic stenosis Coronary disease with history of CABG Hypertension Hyperlipidemia Nicotine dependence Daily alcohol use Marijuana use Hypokalemia Plan: Continue on current medication regimen ,monitoring and symptomatic treatment. maintain IV antibiotics and current medical regimen. PT/OT. Discharge planning in progress for tomorrow pending final DC recommendations and clearance per vascular surgery and infectious disease. The impression and plan of care has been dictated as directed. : I performed a history and examination of this patient, discussed the same with the dictator. I agree with the dictator's note ,documented as a scribe. Any additional findings or plans will be noted.
--- NOTE | 2024-07-03 14:12 | P.PN ---
Subjective Progress Note Date: 06/27/24 H&P Date: 06/26/24 Chief Complaint: Osteomyelitis Is a 74-year-old gentleman with past medical history significant for PAD, multiple vascular procedures including femoral-popliteal bypass, left BKA CABG, GI bleed, anemia-hemoglobin, herniated disc, hypertension, hyperlipidemia, nicotine dependence, daily alcohol use multiple other medical issues. Patient recently was at [facility] on June 17. Apparently he had gone to wound care discovered to be have a significantly decreased hemoglobin around 5, was admitted to ICU. Status post transfusion of 3 units packed RBCs, endoscopy completed with bleeding source not identified, left AMA from the ICU. Patient did not follow-up with PCP, nor wound care. patient reports he has not followed up with vascular surgery in over a month. Reports he had no antibiotics, but had home care coming into his home 3 times a week for wound care of bilateral extremities. Reports wounds worsening over the last couple weeks accompanied by increased tenderness and pain. Denies nausea, vomiting or diarrhea. Denies fevers or chills. Denies chest pain, palpitations or shortness of breath on admission to the ER right foot wounds infested with maggots. Right foot x-ray reported osteomyelitis, afebrile, initially normal WBC, WBC increased this morning to 10.2,ESR elevated, 22 and CRP 1.8. hemoglobin 7.8, platelets 242. Renal function stable, potassium 3.3, supplements ordered. 06/27/2024 NPO,.hemoglobin 7.7, receiving 1 unit packed RBCs before proceeding with aortogram with right lower extremity runoff. Pain controlled. Denies chest pain, palpitations or shortness of breath. Objective - Vital Signs Vital signs: Vital Signs Temp 97.7 F 06/27/24 11:26 Pulse 70 06/27/24 11:26 Resp 18 06/27/24 11:26 BP 132/59 06/27/24 11:26 Pulse Ox 90 L 06/27/24 11:26 FiO2 Intake & Output 06/26/24 06/27/24 06/27/24 18:59 06:59 18:59 Intake Total 540 10 310 Output Total 950 225 Balance 540 -940 85 Intake: IV 10 Invasive Line 1 10 Oral 540 Blood Product 310 Rc As-1 Unit 310 [id number] Output: Urine 950 225 Other: Voiding Method Urinal Urinal Urinal # Voids 1 1 # Bowel Movements 0 - Exam PHYSICAL EXAMINATION: VS: As above GENERAL: Alert and oriented 3, sitting up in bed, no acute distress HEENT: Normocephalic, atraumatic. Pupils equal and reactive. Sclera anicteric NECK: Supple, no JVD CHEST EXAMINATION: Unlabored, equal air entry, CTA CARDIAC: Normal S1, S2 with no gallops. Systolic murmur. ABDOMEN: Soft. Nondistended, nontender, Bowel sounds normal. No guarding, no rigidity. EXTREMITIES: Bilateral lower extremity dressings clean dry and intact. NEUROLOGICAL: Cranial nerves II through XII grossly intact. Skin: No rash, warm and dry. - Labs CBC & Chem 7: 07/03/24 05:25 07/03/24 10:37 Labs: Abnormal Lab Results - Last 24 Hours (Table) 06/26/24 06/27/24 06/27/24 Range/Units 11:45 05:38 05:38 RBC 3.08 L (4.30-5.90) m/uL Hgb 7.7 L (13.0-17.5) gm/dL Hct 26.7 L (39.0-53.0) % MCH 24.9 L (25.0-35.0) pg MCHC 28.7 L (31.0-37.0) g/dL RDW 16.9 H (11.5-15.5) % Lymphocytes # 0.4 L (1.0-4.8) k/uL Chloride 108 H (98-107) mmol/L Calcium 8.0 L (8.4-10.2) mg/dL Crossmatch See Detail Microbiology - Last 24 Hours (Table) 06/26/24 09:10 Gram Stain - Preliminary Foot - Right Assessment and Plan Assessment: Infected right foot wounds, right digits with osteomyelitis, critical limb ischemia right lower extremity Left BKA cellulitis with nonhealing wound Chronic anemia Chronic CHF, systolic dysfunction, EF 35%. History of right solid renal mass, measuring up to 25 mm, further follow-up outpatient Large cystic lesion in the left upper quadrant unclear with this coming from the pancreas versus the kidney versus postsurgical seroma, further follow-up outpatient Recent abdominal aortic aneurysm endovascular repair Colonic diverticulosis Ischemic cardiomyopathy Aortic stenosis Coronary disease with history of CABG Hypertension Hyperlipidemia Nicotine dependence Daily alcohol use Marijuana use Hypokalemia Plan: Continue on current medication regimen ,monitoring and symptomatic treatment. Antibiotics as per ID. Receiving 1 unit of packed RBCs prior to pending vascular procedure. Close monitoring of hemoglobin, electrolytes, renal function with repeat labs ordered for a.m. The impression and plan of care has been dictated as directed. : I performed a history and examination of this patient, discussed the same with the dictator. I agree with the dictator's note ,documented as a scribe. Any additional findings or plans will be noted.
[2024-07-03] MEDS: NYSTATIN 100,000UNIT/GM CREAM 30 GM TUBE TOPICAL SCH (17:04)
[2024-07-03] MEDS: MEROPENEM 1 GM in SODIUM CHLORIDE 0.9% 100 ML IVPB SCH (17:04)
--- NOTE | 2024-07-03 21:43 | P.PN ---
Subjective Progress Note Date: 07/03/24 Principal diagnosis: Reason for follow-up is right foot ulcer and osteomyelitis Patient is a 74-year-old male with a past medical history significant for coronary artery disease hypertension hyperlipidemia heart failure with peripheral arterial disease in this patient was status post left below the knee amputation for nonhealing wound to the left lower extremity patient now presenting to the hospital for evaluation of ulceration to the right lower extremity with abnormal x-ray suggestive of osteomyelitis.Patient is status post aortogram with right lower extremity runoff did shows evidence of significant PAD On today's evaluation that is 07/03/2024,the patient denies any fever or any chills, patient is breathing comfortably on room air, the patient denies chest pain shortness of breath and no significant cough, patient denies abdominal pain, no nausea vomiting or diarrhea. Pain to the right lower extremity is currently controlled. Patient white count is 10.4 creatinine 0.82 wound culture have not been finalized with the Pseudomonas aeruginosa that is resistant to Zosyn Objective - Vital Signs Vital signs: Vital Signs Temp 98.0 F 07/03/24 12:00 Pulse 82 07/03/24 12:00 Resp 16 07/03/24 12:00 BP 101/45 07/03/24 12:00 Pulse Ox 96 07/03/24 12:00 FiO2 Intake & Output 07/02/24 07/03/24 07/03/24 18:59 06:59 18:59 Intake Total 1304 50 100 Output Total 1200 700 Balance 104 -650 100 Weight 61.5 kg Intake: IV 1304 50 Oral 100 Output: Urine 1200 650 Uretheral (Reyna) 250 Estimated Blood Loss 50 Other: Voiding Method Urinal Indwelling Catheter External Catheter - Exam GENERAL DESCRIPTION: An elderly male lying in bed in no distress RESPIRATORY SYSTEM: Unlabored breathing , decreased breath sounds at bases HEART: S1 S2 regular rate and rhythm , ABDOMEN: Soft , no tenderness EXTREMITIES: Right foot swelling redness slightly decreased, no drainage noticed - Labs CBC & Chem 7: 07/03/24 05:25 07/03/24 10:37 Labs: Abnormal Lab Results - Last 24 Hours (Table) 07/03/24 07/03/24 Range/Units 05:25 10:37 RBC 3.29 L (4.30-5.90) m/uL Hgb 8.5 L D (13.0-17.5) gm/dL Hct 27.6 L (39.0-53.0) % MCHC 30.7 L (31.0-37.0) g/dL RDW 16.7 H (11.5-15.5) % Neutrophils # 9.0 H (1.3-7.7) k/uL Lymphocytes # 0.3 L (1.0-4.8) k/uL Chloride 110 H (98-107) mmol/L Calcium 8.3 L (8.4-10.2) mg/dL Microbiology - Last 24 Hours (Table) 06/26/24 09:10 Anaerobic Culture - Final Foot - Right Pseudomonas aeruginosa Assessment and Plan (1) Foot osteomyelitis, right Current Visit: Yes Status: Acute Code(s): M86.9 - OSTEOMYELITIS, UNSPECIFIED SNOMED Code(s): 1331468799715911 (2) Pseudomonas aeruginosa infection Current Visit: Yes Status: Acute Code(s): A49.8 - OTHER BACTERIAL INFECTIONS OF UNSPECIFIED SITE SNOMED Code(s): 19805906 Plan: 1patient presented to hospital with a worsening wound to the right foot area in this patient who did have significant abnormality seen on the x-ray concerning for possible deeper infection and osteomyelitis 2-patient status post aortogram with evidence of significant PAD vascular surgery patient is status post CryoVein procedure completed on 07/02/2024 3-local culture did grew drug-resistant providentia and Citrobacter, also growing Pseudomonas which is resistant to Zosyn 4-I will discontinue Zosyn start the patient on meropenem 1 g every 8 hours PICC line has been ordered for outpatient IV antibiotic therapy prescription was provided to the rn case management Dictation was produced using [employer] dictation software. please excuse any grammatical, word or spelling errors. Time with Patient: Less than 30
[2024-07-04 07:29] VITALS: TEMP 98.9
--- NOTE | 2024-07-04 11:07 | P.PN ---
Subjective Progress Note Date: 07/04/24 Principal diagnosis: Peripheral arterial disease, right foot infection Patient is seen and examined as a follow-up. He is postop day number 2 for right lower extremity fem-tib bypass. States pain is much improved from prior to surgery. He has been afebrile. Dressings are clean dry and intact. Denies any shortness of breath or chest pain. Objective - Vital Signs Vital signs: Vital Signs Temp 98.5 F 07/03/24 20:00 Pulse 83 07/04/24 03:40 Resp 18 07/04/24 03:40 BP 101/41 07/04/24 03:40 Pulse Ox 92 L 07/04/24 03:40 FiO2 Intake & Output 07/03/24 07/04/24 07/04/24 18:59 06:59 18:59 Intake Total 368 Output Total 400 250 Balance -32 -250 Intake: Oral 368 Output: Urine 400 250 Straight 250 Other: Voiding Method External Catheter Urinal - Exam General appearance: The patient is alert, oriented, appears in no acute distress. HET: Head is normocephalic and atraumatic. Pupils are equal and reactive. Neck: Supple. Heart: Regular. Lungs: Equal expansion, normal respiratory effort. Abdomen: Soft, nontender, nondistended. Extremities: Left lower extremity with below the knee amputation. Right lower extremity incisions well-approximated. Dressing applied to calf incision that is clean dry and intact. Right foot with multiple wounds. [place], warm with good capillary refill. PT and DP signal present Neurological: No focal deficits. - Labs CBC & Chem 7: 07/03/24 05:25 07/03/24 10:37 Labs: Abnormal Lab Results - Last 24 Hours (Table) 07/03/24 Range/Units 10:37 Chloride 110 H (98-107) mmol/L Calcium 8.3 L (8.4-10.2) mg/dL Assessment and Plan Assessment: 1. Critical limb ischemia right lower extremity, severe SFA calcific occlusive disease status post right femoral-tibial bypass with CryoVein 2. Osteomyelitis right foot 3. Left BKA nonhealing wound with cellulitis, improved 4. Chronic anemia 5. Hypokalemia 6. Peripheral arterial disease Plan: 1. Consult to physical therapy. Weightbearing right lower extremity as tolerated 2. Will allow right foot to demarcate. No plans on transmetatarsal amputation at this time 3. Antibiotics per recommendations from infectious disease 4. Rest of of medical management per primary medical team 5. Patient is cleared from vascular surgery for discharge. Follow-up with Dr. Padilla in 2 weeks. Discharge instructions reviewed with patient who seemingly understands. Thank you for this consultation, we will sign off at this time. The impression and plan of care has been dictated as directed. Dr. Reyna I performed a history and examination of this patient, discussed the same with the dictator. I agree with the dictator's note ,documented as a scribe. Any additional findings or plans will be noted.
[2024-07-04 11:19] VITALS: BP 113/44; PULSE 63; RESP 17
--- NOTE | 2024-07-04 14:57 | P.DS ---
Providers Date of admission: 06/25/24 19:16 Expected date of discharge: 07/04/24 Attending physician: Yusuf Lisa MD Consults: 06/25/24 19:15 Consult Physician Urgent Consulting Provider: Jose E Romero Consult Reason/Comments: right foot gangrene, previous amputations Do you want consulting provider notified?: Yes Consult Physician Urgent Consulting Provider: Salima Gaol Consult Reason/Comments: right foot gangrene Do you want consulting provider notified?: Yes Primary care physician: Yusuf Lisa MD Hospital Course: Infected right foot wounds, right digits with osteomyelitis. Right lower extremity critical limb ischemia, superficial femoral artery occlusion with femoral artery occlusive disease, status post right lower extremity fem-tib bypass Left BKA cellulitis with nonhealing wound, cellulitis, improving PAD Chronic anemia Chronic CHF, systolic dysfunction, EF 35%. History of right solid renal mass, measuring up to 25 mm, further follow-up outpatient Large cystic lesion in the left upper quadrant unclear with this coming from the pancreas versus the kidney versus postsurgical seroma, further follow-up outpatient Recent abdominal aortic aneurysm endovascular repair Colonic diverticulosis Ischemic cardiomyopathy Aortic stenosis Coronary disease with history of CABG Hypertension Hyperlipidemia Nicotine dependence Daily alcohol use Marijuana use Hypokalemia Hospital course:Is a 74-year-old gentleman with past medical history significant for PAD, multiple vascular procedures including femoral-popliteal bypass, left BKA CABG, GI bleed, anemia-hemoglobin, herniated disc, hypertension, hyperlipidemia, nicotine dependence, daily alcohol use multiple other medical issues. Patient recently was [place] on [place]. Apparently he had gone to wound care discovered to be have a significantly decreased hemoglobin around 5, was admitted to ICU. Status post transfusion of 3 units packed RBCs, endoscopy completed with bleeding source not identified, left AMA from the ICU. Patient did not follow-up with PCP, nor wound care. patient reports he has not followed up with vascular surgery in over a month. Reports he had no antibiotics, but had home care coming into his home 3 times a week for wound care of bilateral extremities. Reports wounds worsening over the last couple weeks accompanied by increased tenderness and pain. Denies nausea, vomiting or diarrhea. Denies fevers or chills. Denies chest pain, palpitations or shortness of breath on admission to the ER right foot wounds infested with maggots. Right foot x-ray reported osteomyelitis, afebrile, initially normal WBC, WBC increased this morning to 10.2,ESR elevated, 22 and CRP 1.8. hemoglobin 7.8, platelets 242. Renal function stable, potassium 3.3, supplements ordered. 06/28. Patient seen and examined. Patient underwent aortogram with right lower extremity runoff via left femoral artery access with reconstitution below the knee. States he feels better. 06/29. Patient seen and examined. States he feels the same as yesterday, vascular surgery planning surgery for tomorrow. 06/30. Pt seen and evaluated at bedside, he is feeling better today, less painful, no chills or sweats. He is scheduled for cryovein bypass on Sun/. 07/01. Pt seen and evaluated at bedside, he is feeling about the same, no fever, chills, sweats. Foot pain is controlled. He is eager for surgery. 07/02/2024 scheduled for OR today. Reports fairly mild achiness of the affected foot. Reports positive chills and sweats at night. Denies dizziness, lightheadedness or headache. Denies chest pain, palpitations or shortness of breath. Creatinine increased 1.17 07/03/2024 status post right lower extremity fem-tib bypass, postop day #1. Tolerated procedure well. Currently reporting only foot pain, rated at a 7. Soft blood pressures throughout the night received 1 L fluid bolus. Hemoglobin 8.5, platelets 277. Blood pressures currently soft, antihypertensives and diuretics discontinued.BMP pending. Afebrile, normal WBC. Denies chest pain, palpitations or shortness of breath. Microbiology 06/26/24 09:10 Foot - Right Anaerobic Culture - Final Pseudomonas aeruginosa 06/26/24 09:10 Foot - Right Gram Stain - Final 06/26/24 09:10 Foot - Right Wound Culture - Final Providencia rettgeri Citrobacter freundii complex Kerstersia ollieiorum 07/04/2024 significant clinical improvement. Reports minimal pain. Dressings clean dry and intact. afebrile. Denies chest pain, palpitations or shortness of breath. Evaluated by PT recommending home/home care. Patient has been cleared by vascular surgery for discharge. Patient will be discharged home today in a stable condition with guarded prognosis pending PICC line placement and DC antibiotics with clearance as per infectious disease. The impression and plan of care has been dictated as directed. : I performed a history and examination of this patient, discussed the same with the dictator. I agree with the dictator's note ,documented as a scribe. Any additional findings or plans will be noted. Patient Condition at Discharge: Stable Plan - Discharge Summary Discharge Rx Participant: Yes New Discharge Prescriptions: New Nicotine 21Mg/24Hr Patch [Habitrol] 1 patch TRANSDERM DAILY #30 patch Nystatin 100,000Unit/gm Cream [Mycostatin Cream] 1 applic TOPICAL TID each HYDROcodone/APAP 5-325MG [[place] 5-325] 1 each PO Q6HR PRN #12 tab PRN Reason: Pain Rivaroxaban [Xarelto] 2.5 mg PO BID #60 tab Continue Loratadine [Claritin] 10 mg PO DAILY Atorvastatin [Lipitor] 80 mg PO HS Acetaminophen Tab [Tylenol] 650 mg PO Q6HR PRN tab PRN Reason: Mild Pain Or Fever > 100.5 Albuterol Nebulized [Ventolin Nebulized] 2.5 mg INHALATION RT-QID PRN PRN Reason: Shortness Of Breath Omeprazole 20 mg PO DAILY Folic Acid 1 mg PO DAILY tab Furosemide [Lasix] 40 mg PO DAILY #30 tablet Thiamine [Vitamin B-1] 100 mg PO DAILY tab Magnesium Citrate and Oxide [Magnesium] 500 mg PO DAILY #30 cap polyethylene glycoL 3350 [Miralax] 17 gm PO DAILY PRN PRN Reason: Constipation carvediloL [Coreg] 6.25 mg PO DAILY Multivitamins, Thera [Multivitamin (formulary)] 1 tab PO DAILY Gabapentin 600 mg PO TID Clopidogrel [Plavix] 75 mg PO DAILY Discontinued lisinopriL [Zestril] 2.5 mg PO HS #30 tab Spironolactone [Aldactone] 25 mg PO DAILY Discharge Medication List Loratadine [Claritin] 10 mg PO DAILY 09/08/20 [History] Atorvastatin [Lipitor] 80 mg PO HS 09/20/23 [History] Acetaminophen Tab [Tylenol] 650 mg PO Q6HR PRN tab 09/25/23 [Rx] Folic Acid 1 mg PO DAILY tab 09/25/23 [Rx] Furosemide [Lasix] 40 mg PO DAILY #30 tablet 09/25/23 [Rx] Magnesium Citrate and Oxide [Magnesium] 500 mg PO DAILY #30 cap 09/25/23 [Rx] Thiamine [Vitamin B-1] 100 mg PO DAILY tab 09/25/23 [Rx] polyethylene glycoL 3350 [Miralax] 17 gm PO DAILY PRN 10/05/23 [History] Multivitamins, Thera [Multivitamin (formulary)] 1 tab PO DAILY 10/10/23 [History] carvediloL [Coreg] 6.25 mg PO DAILY 10/10/23 [History] Albuterol Nebulized [Ventolin Nebulized] 2.5 mg INHALATION RT-QID PRN 10/24/23 [History] Clopidogrel [Plavix] 75 mg PO DAILY 06/25/24 [History] Gabapentin 600 mg PO TID 06/25/24 [History] Omeprazole 20 mg PO DAILY 06/25/24 [History] HYDROcodone/APAP 5-325MG [[place] 5-325] 1 each PO Q6HR PRN #12 tab 07/04/24 [Rx] Nicotine 21Mg/24Hr Patch [Habitrol] 1 patch TRANSDERM DAILY #30 patch 07/04/24 [Rx] Nystatin 100,000Unit/gm Cream [Mycostatin Cream] 1 applic TOPICAL TID each 07/04/24 [Rx] Rivaroxaban [Xarelto] 2.5 mg PO BID #60 tab 07/04/24 [Rx] Follow up Appointment(s)/Referral(s): Yusuf Lisa MD [Primary Care Provider] - 3 Days Tay Padilla DO [STAFF PHYSICIAN] - 2 Weeks [facility], [NON-STAFF] - Infusion Services,[facility] [REFERRING] - 07/04/24 (Will deliver tonight between 6PM-9PM please make sure someone is home to accept delivery.) Ambulatory/Diagnostic Orders: Complete Blood Count w/diff [LAB.AMB] Time Frame: 3 Days, Location: None Selected Patient Instructions/Handouts: Osteomyelitis (DC), Gangrene (DC), Femoropopliteal Bypass (DC) Activity/Diet/Wound Care/Special Instructions: Lasix resumed, Aldactone and JERRELL inhibitor currently on hold, reevaluate outpatient in clinic with PCP. No driving. Avoid heavy lifting greater than 10 lbs , pushing, pulling, straining, flights of stairs until cleared by vascular surgeon ok to shower tomorrow but no baths, pools, soaking in tubs for 2 weeks to avoid risk of infection. signs of infection ie: fever, rash, drainage from puncture site, swelling contact doctor or return to ER immediately. Heavy bleeding from incision site apply firm direct pressure and return to ER. Do not attempt to drive self. low sodium/low fat diet Discharge/Stand Alone Forms: Who Do I Call?, Personal Coating Operator Discharge Disposition: HOME WITH HOME HEALTH SERVICES
--- NOTE | 2024-07-05 13:10 | P.PN ---
Subjective Progress Note Date: 07/04/24 Principal diagnosis: Reason for follow-up is right foot ulcer and osteomyelitis Patient is a 74-year-old male with a past medical history significant for coronary artery disease hypertension hyperlipidemia heart failure with peripheral arterial disease in this patient was status post left below the knee amputation for nonhealing wound to the left lower extremity patient now presenting to the hospital for evaluation of ulceration to the right lower extremity with abnormal x-ray suggestive of osteomyelitis.Patient is status post aortogram with right lower extremity runoff did shows evidence of significant PAD On today's evaluation that is 07/04/2024,the patient remains to be afebrile, patient is on room air not requiring supplemental oxygen and denies any short ness of breath no chest pain or cough.Patient denies having any nausea or vomiting, no abdominal pain and no diarrhea has been reported, the patient pain to the right foot is currently controlled. No new lab has been obtained today blood culture negative local culture positive for Pseudomonas providentia and Citrobacter Objective - Vital Signs Vital signs: Vital Signs Temp 98.9 F 07/04/24 11:18 Pulse 63 07/04/24 11:18 Resp 17 07/04/24 11:18 BP 113/44 07/04/24 11:18 Pulse Ox 97 07/04/24 11:18 FiO2 Intake & Output 07/03/24 07/04/24 07/04/24 18:59 06:59 18:59 Intake Total 368 240 Output Total 400 250 Balance -32 -250 240 Intake: Oral 368 240 Output: Urine 400 250 Straight 250 Other: Voiding Method External Catheter Urinal # Bowel Movements 1 - Exam GENERAL DESCRIPTION: An elderly male lying in bed in no distress RESPIRATORY SYSTEM: Unlabored breathing , decreased breath sounds at bases HEART: S1 S2 regular rate and rhythm , ABDOMEN: Soft , no tenderness EXTREMITIES: Right foot swelling redness slightly decreased, no drainage noticed - Labs CBC & Chem 7: 07/03/24 05:25 07/03/24 10:37 Assessment and Plan (1) Foot osteomyelitis, right Status: Acute Code(s): M86.9 - OSTEOMYELITIS, UNSPECIFIED SNOMED Code(s): 9206574041154259 (2) Pseudomonas aeruginosa infection Status: Acute Code(s): A49.8 - OTHER BACTERIAL INFECTIONS OF UNSPECIFIED SITE SNOMED Code(s): 03413045 Plan: 1patient presented to hospital with a worsening wound to the right foot area in this patient who did have significant abnormality seen on the x-ray concerning for possible deeper infection and osteomyelitis 2-patient status post aortogram with evidence of significant PAD vascular surgery patient is status post CryoVein procedure completed on 07/02/2024 3-local culture did grew drug-resistant providentia and Citrobacter, also growing Pseudomonas which is resistant to Zosyn 4-patient did get a PICC line, plan is to continue with meropenem 1 g every 8 hours x 4-week on discharge and close outpatient follow-up Dictation was produced using [employer] software. please excuse any grammatical, word or spelling errors. Time with Patient: Less than 30
== END 2024-07-04 16:32 | disposition home health service (06) | DRG 253 ==
LOC: EC 15:02 → 5NMEDONC 19:16 → 3SCARD 06-27 14:10
PROVIDERS: ADMIT Family Medicine; ATTEND Family Medicine
PROC: 30233N1 Transfusion of Nonautologous Red Blood Cells into Peripheral Vein, Percutaneous Approach (ICD-10-PCS; 2024-06-27)
PROC: B4101ZZ Fluoroscopy of Abdominal Aorta using Low Osmolar Contrast (ICD-10-PCS; 2024-06-27 14:25)
PROC: B41F1ZZ Fluoroscopy of Right Lower Extremity Arteries using Low Osmolar Contrast (ICD-10-PCS; 2024-06-27 14:25)
PROC: B44FZZZ Ultrasonography of Right Lower Extremity Arteries (ICD-10-PCS; 2024-06-27 14:25)
PROC: 041K0JN Bypass Right Femoral Artery to Posterior Tibial Artery with Synthetic Substitute, Open Approach (ICD-10-PCS; principal; 2024-07-02 15:00)
PROC: 04CK0ZZ Extirpation of Matter from Right Femoral Artery, Open Approach (ICD-10-PCS; principal; 2024-07-02 15:00)
PROC: 04UK0JZ Supplement Right Femoral Artery with Synthetic Substitute, Open Approach (ICD-10-PCS; principal; 2024-07-02 15:00)
DX: I70.261 Atherosclerosis of native arteries of extremities with gangrene, right leg (principal); I50.22 Chronic systolic (congestive) heart failure; L03.116 Cellulitis of left lower limb; T87.44 Infection of amputation stump, left lower extremity; M86.8X6 Other osteomyelitis, lower leg; L97.818 Non-pressure chronic ulcer of other part of right lower leg with other specified severity; M86.171 Other acute osteomyelitis, right ankle and foot; I11.0 Hypertensive heart disease with heart failure; I25.10 Atherosclerotic heart disease of native coronary artery without angina pectoris; K57.30 Diverticulosis of large intestine without perforation or abscess without bleeding; E87.6 Hypokalemia; I25.5 Ischemic cardiomyopathy; I35.0 Nonrheumatic aortic (valve) stenosis; Y84.8 Other medical procedures as the cause of abnormal reaction of the patient, or of later complication, without mention of misadventure at the time of the procedure; B96.5 Pseudomonas (aeruginosa) (mallei) (pseudomallei) as the cause of diseases classified elsewhere; D64.9 Anemia, unspecified; E78.5 Hyperlipidemia, unspecified; I25.2 Old myocardial infarction; L97.519 Non-pressure chronic ulcer of other part of right foot with unspecified severity; K86.89 Other specified diseases of pancreas; B87.0 Cutaneous myiasis; B96.89 Other specified bacterial agents as the cause of diseases classified elsewhere; Y83.5 Amputation of limb(s) as the cause of abnormal reaction of the patient, or of later complication, without mention of misadventure at the time of the procedure; Z79.02 Long term (current) use of antithrombotics/antiplatelets; Z79.899 Other long term (current) drug therapy; Z82.49 Family history of ischemic heart disease and other diseases of the circulatory system; Z95.1 Presence of aortocoronary bypass graft; Z53.29 Procedure and treatment not carried out because of patient's decision for other reasons
CPT/HCPCS: 36246; 36415; 36573; 75625; 75710; 76937; 80048; 80053; 83605; 85025; 85027; 85652; 86140; 86850; 86900; 86901; 86920; 87040; 87070; 87075; 87077; 87186; 87205; 88304; 88311; 93005; 93923; 96365; 96366; 99285

== ENCOUNTER 2024-07-25 11:35 | Observation (INO) | payer MEDICARE ==
[2024-07-25 12:30] LABS: Anisocytosis Moderate; Basophils % (A) 0 %; Eosinophils # (A) 0.5 k/uL (0-0.7); Eosinophils % (A) 5 %; Hypochromasia Marked; Lymphocytes # (A) 0.5 k/uL (1.0-4.8); Lymphocytes % (A) 5 %; MCH 26.5 pg (25.0-35.0); MCHC 28.7 g/dL (31.0-37.0); Macrocytosis Slight; Mean Platelet Volume 7.5; Monocytes # (A) 0.5 k/uL (0-1.0); Monocytes % (A) 6 %; Neutrophils # (A) 7.2 k/uL (1.3-7.7); Neutrophils % (A) 81 %; Platelet Count 345 k/uL (150-450); Poikilocytosis Slight; RBC 2.15 m/uL (4.30-5.90); RDW 20.6 % (11.5-15.5); WBC 8.9 k/uL (3.8-10.6)
--- NOTE | 2024-07-25 12:34 | ED ---
General Adult HPI - General Chief complaint: Recheck/Abnormal Lab/Rx Stated complaint: low hemoglobin Time Seen by Provider: 07/25/24 11:40 Source: patient, RN notes reviewed, old records reviewed Mode of arrival: wheelchair Limitations: no limitations - History of Present Illness Initial comments: This is a 74-year-old male who presents to the emergency department stating that he has a history of being anemic and never been given an explanation as to why. Patient states he had some recent blood work done and they told him it was low so he was told to come to the emergency department. Patient states he has not felt tired or fatigued lately. Patient denies any chest pain difficulty breathing shortness of breath. Patient has any palpitations. Patient [place] any recent fever chills or cough. Patient denies being on any blood thinners. Patient denies any nausea vomiting or diarrhea. - Related Data Home Medications Medication Instructions Recorded Confirmed Loratadine [Claritin] 10 mg PO DAILY 09/08/20 06/25/24 Atorvastatin [Lipitor] 80 mg PO HS 09/20/23 06/25/24 polyethylene glycoL 3350 [Miralax] 17 gm PO DAILY PRN 10/05/23 06/25/24 Multivitamins, Thera [Multivitamin 1 tab PO DAILY 10/10/23 06/25/24 (formulary)] carvediloL [Coreg] 6.25 mg PO DAILY 10/10/23 06/25/24 Albuterol Nebulized [Ventolin 2.5 mg INHALATION RT-QID PRN 10/24/23 06/25/24 Nebulized] Clopidogrel [Plavix] 75 mg PO DAILY 06/25/24 06/25/24 Gabapentin 600 mg PO TID 06/25/24 06/25/24 Omeprazole 20 mg PO DAILY 06/25/24 06/25/24 Previous Rx's Medication Instructions Recorded Acetaminophen Tab [Tylenol] 650 mg PO Q6HR PRN tab 09/25/23 Folic Acid 1 mg PO DAILY tab 09/25/23 Furosemide [Lasix] 40 mg PO DAILY #30 tablet 09/25/23 Magnesium Citrate and Oxide 500 mg PO DAILY #30 cap 09/25/23 [Magnesium] Thiamine [Vitamin B-1] 100 mg PO DAILY tab 09/25/23 HYDROcodone/APAP 5-325MG [[place] 1 each PO Q6HR PRN #12 tab 07/04/24 5-325] Nicotine 21Mg/24Hr Patch [Habitrol] 1 patch TRANSDERM DAILY #30 patch 07/04/24 Nystatin 100,000Unit/gm Cream 1 applic TOPICAL TID each 07/04/24 [Mycostatin Cream] Rivaroxaban [Xarelto] 2.5 mg PO BID #60 tab 07/04/24 Allergies Allergy/AdvReac Type Severity Reaction Status Date / Time No Known Allergies Allergy Verified 07/25/24 11:36 Review of Systems ROS Statement: Those systems with pertinent positive or pertinent negative responses have been documented in the HPI. ROS Other: All systems not noted in ROS Statement are negative. Past Medical History Past Medical History: Coronary Artery Disease (CAD), Heart Failure, Hyperlipidemia, Hypertension, Vascular Disorder Additional Past Medical History / Comment(s): aortic aneusrym repair, herniated disc, peripheral vascular disease, anemia Last Myocardial Infarction Date:: 02/2023 History of Any Multi-Drug Resistant Organisms: None Reported Past Surgical History: Appendectomy, Coronary Bypass/CABG, Orthopedic Surgery Additional Past Surgical History / Comment(s): Right rotater cuff repair, L first and second toe removal. LBKA Past Anesthesia/Blood Transfusion Reactions: No Reported Reaction Past Psychological History: No Psychological Hx Reported Smoking Status: Current every day smoker Past Alcohol Use History: Occasional Past Drug Use History: Marijuana - Past Family History Father Family Medical History: Coronary Artery Disease (CAD) Additional Family Medical History / Comment(s): triple bypass Mother Family Medical History: Coronary Artery Disease (CAD), Dementia General Exam - General Exam Comments Initial Comments: GENERAL: Patient is well-developed and well-nourished. Patient is nontoxic and well- hydrated and is in no acute distress. ENT: Neck is soft and supple. No significant lymphadenopathy is noted. Oropharynx is clear. Moist mucous membranes. Neck has full range of motion without eliciting any pain. EYES: The sclera were anicteric and conjunctiva are pale. Extraocular movements were intact and pupils were equal round and reactive to light. Eyelids were unremarkable. PULMONARY: Unlabored respirations. Good breath sounds bilaterally. No audible rales rhonchi or wheezing was noted. CARDIOVASCULAR: There is a regular rate and rhythm without any murmurs gallops or rubs. ABDOMEN: Soft and nontender with normal bowel sounds. No palpable organomegaly was noted. There is no palpable pulsatile mass. SKIN: Skin is very pale NEUROLOGIC: Patient is alert and oriented x3. Cranial nerves II through XII are grossly intact. Motor and sensory are also intact. Normal speech, volume and content. Symmetrical smile. MUSCULOSKELETAL: Normal extremities with adequate strength and full range of motion. No lower extremity swelling or edema. No calf tenderness. LYMPHATICS: No significant lymphadenopathy is noted PSYCHIATRIC: Normal psychiatric evaluation. Limitations: no limitations Course Vital Signs 07/25/24 11:36 Temperature 97.9 F Pulse Rate 99 Respiratory 18 Rate Blood Pressure 105/51 O2 Sat by Pulse 100 Oximetry Medical Decision Making - Medical Decision Making Was pt. sent in by a medical professional or institution (, [employer], [employer], urgent care, hospital, or chcf...) When possible be specific @ -No Did you speak to anyone other than the patient for history (EMS, parent, family, police, friend...)? What history was obtained from this source @ -No Did you review nursing and triage notes (agree or disagree)? Why? @ -I reviewed and agree with nursing and triage notes Were old charts reviewed (outside hosp., previous admission, EMS record, old EKG, old radiological studies, urgent care reports/EKG's, ch[facility] records)? Report findings @ -No old charts were reviewed Differential Diagnosis? @ -Anemia, GI bleed, MDS, this is not an all-inclusive list EKG interpreted by me (3pts min.). @ -As above X-rays interpreted by me (1pt min.). @ -None done CT interpreted by me (1pt min.). @ -None done U/S interpreted by me (1pt. min.). @ -None done What testing was considered but not performed or refused? (CT, X-rays, U/S, labs)? Why? @ -None What meds were considered but not given or refused? Why? @ -None Did you discuss the management of the patient with other professionals (professionals i.e. [facility], [employer], lab, RT, psych nurse, psychiatric social worker supervisor, old coin dealer, t eacher, unarmed security officer, case hardener)? Give summary @ -I spoke with [facility] they agreed admit the patient Was smoking cessation discussed for >3mins.? @ -No Was critical care preformed (if so, how long)? @ -35 minutes Were there social determinants of health that impacted care today? How? (Homelessness, low income, unemployed, alcoholism, drug addiction, transportation, low edu. Level, literacy, decrease access to med. care, nursing home, rehab)? @ -No Was there de-escalation of care discussed even if they declined (Discuss DNR or withdrawal of care, Hospice)? DNR status @ -No What co-morbidities impacted this encounter? (DM, HTN, Smoking, COPD, CAD, Cancer, CVA, ARF, Chemo, Hep., AIDS, mental health diagnosis, sleep apnea, morbid obesity)? @ -None Was patient admitted / discharged? Hospital course, mention meds given and route, prescriptions, significant lab abnormalities, going to OR and other pertinent info. @ -Patient's hemoglobin is low was given 1 unit of packed red blood cells he will be admitted to [facility] and CBCs will be repeated and hematology will be consulted Undiagnosed new problem with uncertain prognosis? @ -No Drug Therapy requiring intensive monitoring for toxicity (Heparin, Nitro, Insulin, Cardizem)? @ -No Were any procedures done? @ -No Diagnosis/symptom? @ -Anemia Acute, or Chronic, or Acute on Chronic? @ -Acute Uncomplicated (without systemic symptoms) or Complicated (systemic symptoms)? @ -Complicated Side effects of treatment? @ -No Exacerbation, Progression, or Severe Exacerbation? @ -No Poses a threat to life or bodily function? How? (Chest pain, USA, SD, pneumonia, PE, COPD, DKA, ARF, appy, cholecystitis, CVA, Diverticulitis, Homicidal, Suicidal, threat to staff... and all critical care pts) @ -Yes this can lead to hypoxia and endorgan dysfunction - Lab Data Result diagrams: 07/25/24 12:22 07/25/24 12:22 Lab Results 07/25/24 07/25/24 07/25/24 Range/Units 12:22 12:22 12:22 WBC 8.9 (3.8-10.6) k/uL RBC 2.15 L (4.30-5.90) m/uL Hgb 5.7 L* D (13.0-17.5) gm/dL Hct 19.9 L* (39.0-53.0) % MCV 92.5 D (80.0-100.0) fL MCH 26.5 (25.0-35.0) pg MCHC 28.7 L (31.0-37.0) g/dL RDW 20.6 H (11.5-15.5) % Plt Count 345 (150-450) k/uL MPV 7.5 Neutrophils % 81 % Lymphocytes % 5 % Monocytes % 6 % Eosinophils % 5 % Basophils % 0 % Neutrophils # 7.2 (1.3-7.7) k/uL Lymphocytes # 0.5 L (1.0-4.8) k/uL Monocytes # 0.5 (0-1.0) k/uL Eosinophils # 0.5 (0-0.7) k/uL Basophils # 0.0 (0-0.2) k/uL Hypochromasia Marked Poikilocytosis Slight Anisocytosis Moderate Macrocytosis Slight PT (10.0-12.5) sec INR (<1.2) APTT (22.0-30.0) sec Sodium 137 (137-145) mmol/L Potassium 3.9 (3.5-5.1) mmol/L Chloride 103 (98-107) mmol/L Carbon Dioxide 31 H (22-30) mmol/L Anion Gap 3 mmol/L BUN 24 H (9-20) mg/dL Creatinine 0.71 (0.66-1.25) mg/dL Est GFR (CKD-EPI)AfAm >90 (>60 ml/min/1.73 sqM) Est GFR (CKD-EPI)NonAf >90 (>60 ml/min/1.73 sqM) Glucose 91 (74-99) mg/dL Calcium 8.4 (8.4-10.2) mg/dL Magnesium 2.0 (1.6-2.3) mg/dL Total Bilirubin 0.3 (0.2-1.3) mg/dL AST 20 (17-59) U/L ALT 17 (4-49) U/L Alkaline Phosphatase 81 (38-126) U/L Troponin I 0.015 (0.000-0.034) ng/mL Total Protein 5.5 L (6.3-8.2) g/dL Albumin 3.0 L (3.5-5.0) g/dL Blood Type Blood Type Recheck Bld Type Recheck Status Antibody Screen Crossmatch Spec Expiration Date 07/25/24 07/25/24 Range/Units 13:10 13:15 WBC (3.8-10.6) k/uL RBC (4.30-5.90) m/uL Hgb (13.0-17.5) gm/dL Hct (39.0-53.0) % MCV (80.0-100.0) fL MCH (25.0-35.0) pg MCHC (31.0-37.0) g/dL RDW (11.5-15.5) % Plt Count (150-450) k/uL MPV Neutrophils % % Lymphocytes % % Monocytes % % Eosinophils % % Basophils % % Neutrophils # (1.3-7.7) k/uL Lymphocytes # (1.0-4.8) k/uL Monocytes # (0-1.0) k/uL Eosinophils # (0-0.7) k/uL Basophils # (0-0.2) k/uL Hypochromasia Poikilocytosis Anisocytosis Macrocytosis PT 12.7 H (10.0-12.5) sec INR 1.2 H (<1.2) APTT 24.5 (22.0-30.0) sec Sodium (137-145) mmol/L Potassium (3.5-5.1) mmol/L Chloride (98-107) mmol/L Carbon Dioxide (22-30) mmol/L Anion Gap mmol/L BUN (9-20) mg/dL Creatinine (0.66-1.25) mg/dL Est GFR (CKD-EPI)AfAm (>60 ml/min/1.73 sqM) Est GFR (CKD-EPI)NonAf (>60 ml/min/1.73 sqM) Glucose (74-99) mg/dL Calcium (8.4-10.2) mg/dL Magnesium (1.6-2.3) mg/dL Total Bilirubin (0.2-1.3) mg/dL AST (17-59) U/L ALT (4-49) U/L Alkaline Phosphatase (38-126) U/L Troponin I (0.000-0.034) ng/mL Total Protein (6.3-8.2) g/dL Albumin (3.5-5.0) g/dL Blood Type A Negative Blood Type Recheck A Neg Bld Type Recheck Status No Antibody Screen NEGATIVE Crossmatch See Detail Spec Expiration Date 07/28/20242335 Disposition Clinical Impression: Anemia Disposition: ADMITTED IP TO THIS HOSP Referrals: Yusuf Lisa MD [Primary Care Provider] - 1-2 days Time of Disposition: 14:41
[2024-07-25 12:46] LABS: ALT 17 U/L (4-49); AST 20 U/L (17-59); African American GFR (CKD) >90 (>60 ml/min/1.73 sqM); Alkaline Phosphatase 81 U/L (38-126); Anion Gap 3 mmol/L; Blood Urea Nitrogen 24 mg/dL (9-20); Calcium 8.4 mg/dL (8.4-10.2); Carbon Dioxide 31 mmol/L (22-30); Chloride 103 mmol/L (98-107); Glucose 91 mg/dL (74-99); Non-African American GFR(CKD) >90 (>60 ml/min/1.73 sqM); Potassium 3.9 mmol/L (3.5-5.1); Sodium 137 mmol/L (137-145); Total Bilirubin 0.3 mg/dL (0.2-1.3); Total Protein 5.5 g/dL (6.3-8.2)
[2024-07-25 12:49] LABS: HGB 5.7 gm/dL (13.0-17.5)
[2024-07-25 12:50] LABS: HCT 19.9 % (39.0-53.0); MCV 92.5 fL (80.0-100.0)
[2024-07-25] MEDS: SODIUM CHLORIDE 0.9% 500 ML 500 ML IV STA (13:16)
[2024-07-25 13:44] LABS: INR 1.2 (<1.2); Partial Thromboplastin Time 24.5 sec (22.0-30.0); Prothrombin Time 12.7 sec (10.0-12.5)
[2024-07-25] MEDS ORDERED: HYDROcodone/APAP 5-325MG 1 EACH TAB PO PRN (17:20)
[2024-07-25] MEDS ORDERED: ALBUTEROL NEBULIZED 2.5 MG/3 ML INHALATION PRN (17:20)
[2024-07-25] MEDS ORDERED: polyethylene glycoL 3350 17 GM POWD.PACK PO PRN (17:20)
[2024-07-25] MEDS ORDERED: ACETAMINOPHEN TAB 325 MG TAB PO PRN (17:20)
[2024-07-25] MEDS ORDERED: MEROPENEM 1 GM VIAL IVPB SCH (17:30)
--- NOTE | 2024-07-25 17:38 | P.CONS ---
History of Present Illness - Reason for Consult Consult date: 07/25/24 Anemia, renal mass - History of Present Illness The patient is a 74-year-old white male, with multiple medical problems. He was previously seen in consult in 11/03 for severe anemia. The patient has had anemia dating back to 2015, with intermittent values as low as the 4-6 range. Hemoglobin has been chronically low since that time with best levels typically around the 10 range. Evaluation and 11/03 showed evidence of iron deficiency anemia, and the patient received IV iron. He gave a history of a negative endoscopic evaluation in January 2023 at [facility]. The patient was also found to have a right renal mass at the time on CT imaging. He had a follow-up MRI done as an outpatient in 01/01 which confirmed the presence of right renal mass. However it is not clear if he has had any urology follow-up for the same. He was supposed to follow-up with our service as an outpatient but did not do so. The patient has continued to have low hemoglobin requiring multiple transfusions. He was sent back in due to hemoglobin again in the 5 range. Surprisingly he claims no major symptoms at this level. He is currently receiving blood transfusions. He states that he recently had an EGD and colonoscopy at [facility] with Dr. Rebollar which was also negative. He was admitted to the hospital in late 07/03, because of infection and nonhealing wounds of the right lower extremity, and underwent vascular bypass surgery. He also had cellulitis of the stump of his left lower extremity, where he has previously had a BKA. Hemoglobin during that admission was in the 10 range, but did drop into the 5-6 range after his surgery. The patient again claims no obvious bleeding. He takes Plavix on a regular basis. It appears that he was discharged on Xarelto 2.5 mg p.o. twice daily after his recent admission. Previous labs done have also shown B12 in the low normal range, 300-400, with MMA elevated. Review of Systems Constitutional: Reports chronic pain, Reports fatigue Eyes: denies blurred vision, denies pain Ears: deny: decreased hearing, ear discharge, earache, tinnitus Ears, nose, mouth and throat: Denies headache, Denies sore throat Cardiovascular: Reports as per HPI, Reports claudication, Reports dyspnea on exertion, Reports shortness of breath Respiratory: Reports dyspnea Gastrointestinal: Denies abdominal pain, Denies diarrhea, Denies nausea, Denies vomiting Genitourinary: Reports as per HPI Musculoskeletal: Reports as per HPI (Chronic ischemic issues and complications right lower extremity. Left lower extremity BKA), Reports shooting leg pain Integumentary: Reports as per HPI, Reports sores, Reports wounds Neurological: Reports weakness Psychiatric: Reports as per HPI (Noncompliant with outpatient follow-up) Endocrine: Reports fatigue Hematologic/Lymphatic: Reports as per HPI Past Medical History Past Medical History: Coronary Artery Disease (CAD), Heart Failure, Hyperlipidemia, Hypertension, Vascular Disorder Additional Past Medical History / Comment(s): aortic aneusrym repair, herniated disc, peripheral vascular disease, anemia Last Myocardial Infarction Date:: 02/2023 History of Any Multi-Drug Resistant Organisms: None Reported Past Surgical History: Appendectomy, Coronary Bypass/CABG, Orthopedic Surgery Additional Past Surgical History / Comment(s): Right rotater cuff repair, L first and second toe removal. LBKA Past Anesthesia/Blood Transfusion Reactions: No Reported Reaction Past Psychological History: No Psychological Hx Reported Smoking Status: Current every day smoker Past Alcohol Use History: Occasional Past Drug Use History: Marijuana - Past Family History Father Family Medical History: Coronary Artery Disease (CAD) Additional Family Medical History / Comment(s): triple bypass Mother Family Medical History: Coronary Artery Disease (CAD), Dementia Medications and Allergies Home Medications Medication Instructions Recorded Confirmed Type Loratadine [Claritin] 10 mg PO DAILY 09/08/20 07/25/24 History Atorvastatin [Lipitor] 80 mg PO HS 09/20/23 07/25/24 History Acetaminophen Tab [Tylenol] 650 mg PO Q6HR PRN tab 09/25/23 07/25/24 Rx Folic Acid 1 mg PO DAILY tab 09/25/23 07/25/24 Rx Furosemide [Lasix] 40 mg PO DAILY #30 tablet 09/25/23 07/25/24 Rx Magnesium Citrate and Oxide 500 mg PO DAILY #30 cap 09/25/23 07/25/24 Rx [Magnesium] Thiamine [Vitamin B-1] 100 mg PO DAILY tab 09/25/23 07/25/24 Rx polyethylene glycoL 3350 [Miralax] 17 gm PO DAILY PRN 10/05/23 07/25/24 History Multivitamins, Thera [Multivitamin 1 tab PO DAILY 10/10/23 07/25/24 History (formulary)] carvediloL [Coreg] 6.25 mg PO DAILY 10/10/23 07/25/24 History Albuterol Nebulized [Ventolin 2.5 mg INHALATION RT-QID PRN 10/24/23 07/25/24 Hi story Nebulized] Clopidogrel [Plavix] 75 mg PO DAILY 06/25/24 07/25/24 History Gabapentin 600 mg PO TID 06/25/24 07/25/24 History Omeprazole 20 mg PO DAILY 06/25/24 07/25/24 History Nicotine 21Mg/24Hr Patch [Habitrol] 1 patch TRANSDERM DAILY #30 patch 07/04/24 07/25/24 Rx Nystatin 100,000Unit/gm Cream 1 applic TOPICAL TID each 07/04/24 07/25/24 Rx [Mycostatin Cream] Rivaroxaban [Xarelto] 2.5 mg PO BID #60 tab 07/04/24 07/25/24 Rx HYDROcodone/APAP 5-325MG [[place] 1 tab PO Q6HR PRN 07/25/24 07/25/24 History 5-325] Meropenem [Merrem] 1 gram IVPB Q8H 07/25/24 07/25/24 History Allergies Allergy/AdvReac Type Severity Reaction Status Date / Time No Known Allergies Allergy Verified 07/25/24 15:08 Physical Exam Vitals: Vital Signs Temp Pulse Resp BP Pulse Ox 07/25/24 16:09 98.4 F 96 20 135/66 96 07/25/24 15:49 98.4 F 86 20 130/54 95 07/25/24 15:40 98.3 F 87 20 123/60 96 07/25/24 11:36 97.9 F 99 18 105/51 100 Intake and Output 07/25/24 07/25/24 07/25/24 06:59 14:59 22:59 Intake Total 0 Balance 0 Intake: Blood Product 0 Unit 0 Other: Weight 58.967 kg - Constitutional General appearance: no acute distress - EENT Eyes: EOMI, PERRLA ENT: hearing grossly normal, normal oropharynx - Neck Neck: no lymphadenopathy Thyroid: bilateral: normal size - Respiratory Respiratory: bilateral: CTA - Cardiovascular Rhythm: regular Heart sounds: abnormal: S1 (Diminished), S2 (Same) Abnormal Heart Sounds: systolic murmur - Gastrointestinal General gastrointestinal: normal bowel sounds, soft - Integumentary Right lower extremity distal erythema. Bandaged. Left lower extremity stump bandaged - Neurologic Neurologic: CNII-XII intact - Musculoskeletal Left lower extremity BKA Musculoskeletal: generalized weakness - Psychiatric Psychiatric: A&O x's 3, appropriate affect Results CBC & Chem 7: 07/25/24 12:22 07/25/24 12:22 Labs: Abnormal Lab Results - Last 24 Hours (Table) 07/25/24 07/25/24 07/25/24 Range/Units 12:22 12:22 13:10 RBC 2.15 L (4.30-5.90) m/uL Hgb 5.7 L* D (13.0-17.5) gm/dL Hct 19.9 L* (39.0-53.0) % MCHC 28.7 L (31.0-37.0) g/dL RDW 20.6 H (11.5-15.5) % Lymphocytes # 0.5 L (1.0-4.8) k/uL PT (10.0-12.5) sec INR (<1.2) Carbon Dioxide 31 H (22-30) mmol/L BUN 24 H (9-20) mg/dL Total Protein 5.5 L (6.3-8.2) g/dL Albumin 3.0 L (3.5-5.0) g/dL Crossmatch See Detail 07/25/24 Range/Units 13:15 RBC (4.30-5.90) m/uL Hgb (13.0-17.5) gm/dL Hct (39.0-53.0) % MCHC (31.0-37.0) g/dL RDW (11.5-15.5) % Lymphocytes # (1.0-4.8) k/uL PT 12.7 H (10.0-12.5) sec INR 1.2 H (<1.2) Carbon Dioxide (22-30) mmol/L BUN (9-20) mg/dL Total Protein (6.3-8.2) g/dL Albumin (3.5-5.0) g/dL Crossmatch Comments: Foot x-ray/arterial ultrasound right lower extremity reports reviewed from 07/03 MRI - abdomen: report reviewed Assessment and Plan (1) Anemia Narrative/Plan: The patient has actually had chronic anemia now for several years as detailed in the HPI, with upper levels in the 9-11 range, and lower levels as low as 4-6. He has had a limited anemia workup which indicated iron deficiency. He did not follow-up with hematology outpatient as directed. -Based on his history, available labs, and medication use, it appears that the patient does have iron deficiency anemia. He claims that his GI workup x 2 was negative although those reports are not available to us. 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 In addition the patient has been on Xarelto over the last month, although he is on a lower and different dosing schedule than usual. It is felt that he also has a component of anemia of inflammation, given ongoing right lower extremity issues with ischemic complications including recent admission requiring right sided bypass. The patient also has chronic inflammation and wound issues related to the right lower extremity. -The patient is currently receiving blood transfusions. Continue to monitor and transfuse to keep hemoglobin greater than 7 -Proceed with additional IV iron -Given the possibility of B12 deficiency, he will be given a dose of IM B12, and started on oral supplementation to be continued as outpatient -In his case, it appears that it would definitely be desirable to maintain the patient on his antiplatelet/anticoagulant regimen given his extensive cardiovascular history. In this situation his hemoglobin can possibly maintain in a safe range if he is compliant with aggressive outpatient follow-up and iron supplementation, in which case he can continue on his required cardiovascular regimen. However compliance has been an ongoing issue. -Check workup for other causes of anemia Current Visit: Yes Status: Acute Priority: High Code(s): D64.9 - ANEMIA, UNSPECIFIED SNOMED Code(s): 075419473 (2) Renal mass, right Narrative/Plan: The patient's MRI of the abdomen done in 01/01 confirmed solid mass concerning for renal cell carcinoma. It does not appear that the patient has been compliant with outpatient follow-up for the same. Consult urology to try to reestablish follow-up Current Visit: No Status: Acute Priority: Medium Code(s): N28.89 - OTHER SPECIFIED DISORDERS OF KIDNEY AND URETER SNOMED Code(s): 722486848
[2024-07-25 19:14] LABS: Reticulocyte % 8.4 % (0.5-2.0)
[2024-07-25 19:21] LABS: Anisocytosis Slight; Basophils % (A) 0 %; Eosinophils # (A) 0.5 k/uL (0-0.7); Eosinophils % (A) 6 %; HCT 22.3 % (39.0-53.0); Hypochromasia Marked; Lymphocytes # (A) 0.5 k/uL (1.0-4.8); Lymphocytes % (A) 6 %; MCH 27.4 pg (25.0-35.0); MCHC 29.4 g/dL (31.0-37.0); MCV 93.2 fL (80.0-100.0); Macrocytosis Slight; Mean Platelet Volume 7.2; Monocytes # (A) 0.4 k/uL (0-1.0); Monocytes % (A) 5 %; Neutrophils # (A) 6.4 k/uL (1.3-7.7); Neutrophils % (A) 80 %; Platelet Count 302 k/uL (150-450); Poikilocytosis Moderate; RDW 19.6 % (11.5-15.5)
[2024-07-25 19:28] LABS: HGB 6.6 gm/dL (13.0-17.5)
[2024-07-25] MEDS: MEROPENEM 1 GM in SODIUM CHLORIDE 0.9% 100 ML IVPB SCH (20:14)
[2024-07-25] MEDS: ATORVASTATIN 80 MG TAB PO SCH (20:16)
[2024-07-25] MEDS: GABAPENTIN 300 MG CAP PO SCH (20:16)
[2024-07-25] MEDS: SODIUM FERRIC GLUCONAT-SUCROSE 125 MG in SODIUM CHLORIDE 0.9% 100 ML IVPB SCH (20:48)
--- NOTE | 2024-07-25 23:53 | HP ---
HISTORY AND PHYSICAL CHIEF COMPLAINT: Low hemoglobin. HISTORY OF PRESENT ILLNESS: This is a 74-year-old gentleman with a past medical history of multiple medical problems including CAD, CHF, was recently admitted to [facility] with complaints of infected right foot wound and the patient had left below-knee amputation. The patient had multiple other medical problems also. Currently, the patient is complaining of low hemoglobin and his hemoglobin was found to be 5.7. There is no history of obvious bleeding. The patient refused chest x-ray at this time. There is no history of any fever, rigors, or chills. PAST MEDICAL HISTORY: Reviewed include CAD, hypertension, hyperlipidemia, history of CABG. Rest of the history is noted. HOME MEDICATIONS: Reviewed include meropenem and dose and rest of medications noted. ALLERGIES: None. FAMILY HISTORY: History of CAD and triple bypass. SOCIAL HISTORY: History of smoking. REVIEW OF SYSTEMS: Fourteen-point review of systems is negative except as mentioned earlier. PHYSICAL EXAMINATION: VITAL SIGNS: Pulse 96, blood pressure 135/50, respirations 20. HEENT: Conjunctivae normal. NECK: No JVD. CARDIOVASCULAR: S1, S2. RESPIRATORY: A few scattered rhonchi. ABDOMEN: Soft, nontender. LEGS: No edema. NERVOUS SYSTEM: Nonfocal. LABORATORY DATA: WBC 8.3, hemoglobin 5.7. ASSESSMENT: 1. Anemia, rule out blood-loss anemia, acute on chronic. 2. History of congestive heart failure, chronic systolic dysfunction, ejection fraction 35%. 3. Recent abdominal aortic aneurysm. 4. Ischemic cardiomyopathy. 5. Aortic stenosis. 6. Multiple complex medical issues. 7. Left below-knee amputation. 8. Peripheral vascular disease. RECOMMENDATIONS AND DISCUSSION: This is a 74-year-old gentleman presented with multiple complex medical issues, we will monitor the patient closely. I would recommend 1 unit of transfusion with Lasix 20. Otherwise, I would recommend to resume the home medications once they are confirmed. I would also recommend stool guaiac and a surgical consultation also for possible endoscopies. The exact etiology of anemia is unknown at this time. Further recommendations to follow. MMODL / IJN: [id number] /
[2024-07-26 02:58] LABS: Protein, Total 5.4 g/dL (6.2-8.2)
[2024-07-26 03:21] LABS: % Iron Saturation 3.58 (15.00-50.00); Ferritin 31.5 ng/mL (22.0-322.0)
[2024-07-26 08:16] LABS: Anisocytosis Slight; Basophils % (A) 0 %; Eosinophils # (A) 0.3 k/uL (0-0.7); Eosinophils % (A) 2 %; HCT 29.6 % (39.0-53.0); Hypochromasia Marked; Lymphocytes # (A) 0.4 k/uL (1.0-4.8); Lymphocytes % (A) 3 %; MCH 27.5 pg (25.0-35.0); MCHC 29.7 g/dL (31.0-37.0); MCV 92.3 fL (80.0-100.0); Mean Platelet Volume 7.1; Monocytes # (A) 0.7 k/uL (0-1.0); Monocytes % (A) 5 %; Neutrophils # (A) 10.4 k/uL (1.3-7.7); Neutrophils % (A) 86 %; Platelet Count 333 k/uL (150-450); Poikilocytosis Moderate; RDW 18.6 % (11.5-15.5); WBC 12.1 k/uL (3.8-10.6)
[2024-07-26 08:19] LABS: HGB 8.8 gm/dL (13.0-17.5)
[2024-07-26 08:28] LABS: African American GFR (CKD) >90 (>60 ml/min/1.73 sqM); Anion Gap 4 mmol/L; Blood Urea Nitrogen 16 mg/dL (9-20); Calcium 8.5 mg/dL (8.4-10.2); Carbon Dioxide 28 mmol/L (22-30); Chloride 107 mmol/L (98-107); Glucose 105 mg/dL (74-99); Non-African American GFR(CKD) >90 (>60 ml/min/1.73 sqM); Sodium 139 mmol/L (137-145)
[2024-07-26] MEDS: carvediloL 6.25 MG TAB PO SCH (08:39)
[2024-07-26] MEDS: FOLIC ACID 1 MG TAB PO SCH (08:39)
[2024-07-26] MEDS: FUROSEMIDE 40 MG TAB PO SCH (08:39)
[2024-07-26] MEDS: MULTIVITAMINS, THERA 1 EACH TAB PO SCH (08:40)
[2024-07-26] MEDS: LORATADINE 10 MG TAB PO SCH (08:40)
[2024-07-26] MEDS: MAGNESIUM OXIDE 400 MG TAB PO SCH (08:40)
[2024-07-26] MEDS: PANTOPRAZOLE 40 MG TABLET PO SCH (08:40)
[2024-07-26] MEDS: CLOPIDOGREL 75 MG TAB PO SCH (08:40)
[2024-07-26] MEDS: THIAMINE 100 MG TAB PO SCH (08:40)
[2024-07-26] MEDS: NICOTINE 21MG/24HR PATCH TRANSDERM SCH (08:41)
[2024-07-26] MEDS ORDERED: ZINC OXIDE PASTE (Z-GUARD) 1 APPLIC TOPICAL PRN (10:34)
[2024-07-26 13:25] VITALS: BP 148/78; PULSE 102; RESP 19; TEMP 97.5
--- NOTE | 2024-07-26 15:25 | P.GSCN ---
History of Present Illness Consult date: 07/26/24 History of present illness: Patient is a 74-year-old male who has a past medical history of PAD status post left BKA who presents with anemia. Patient was found anemic, on blood work obtained as an outpatient by his primary care physician. He was subsequently advised to present to the emergency department. Upon presentation to the emergency department patient was slightly anemic and a subsequent admitted for further evaluation. Patient states that he currently has no complaints. Denies any abdominal pain. No nausea or vomiting. No lightheadedness or dizziness. Denies any melena, hematochezia, diarrhea or hematemesis. He states that he had recently undergone upper as well as lower endoscopy with no acute findings seen within the past year. Denies any weight loss. No shortness of breath or chest pain. No fevers or chills. Review of Systems Negative except for as stated above Past Medical History Past Medical History: Coronary Artery Disease (CAD), Heart Failure, Hyperlipidemia, Hypertension, Vascular Disorder Additional Past Medical History / Comment(s): aortic aneusrym repair, herniated disc, peripheral vascular disease, anemia Last Myocardial Infarction Date:: 02/2023 History of Any Multi-Drug Resistant Organisms: None Reported Past Surgical History: Appendectomy, Coronary Bypass/CABG, Orthopedic Surgery Additional Past Surgical History / Comment(s): Right rotater cuff repair, L first and second toe removal. LBKA Past Anesthesia/Blood Transfusion Reactions: No Reported Reaction Past Psychological History: No Psychological Hx Reported Smoking Status: Current every day smoker Past Alcohol Use History: Occasional Additional Past Alcohol Use History / Comment(s): 5 a day Past Drug Use History: Marijuana Additional Drug Use History / Comment(s): Pt aware not to use 24hrs before procedure - Past Family History Father Family Medical History: Coronary Artery Disease (CAD) Additional Family Medical History / Comment(s): triple bypass Mother Family Medical History: Coronary Artery Disease (CAD), Dementia Medications and Allergies Home Medications Medication Instructions Recorded Confirmed Type Loratadine [Claritin] 10 mg PO DAILY 09/08/20 07/25/24 History Atorvastatin [Lipitor] 80 mg PO HS 09/20/23 07/25/24 History Acetaminophen Tab [Tylenol] 650 mg PO Q6HR PRN tab 09/25/23 07/25/24 Rx Folic Acid 1 mg PO DAILY tab 09/25/23 07/25/24 Rx Furosemide [Lasix] 40 mg PO DAILY #30 tablet 09/25/23 07/25/24 Rx Magnesium Citrate and Oxide 500 mg PO DAILY #30 cap 09/25/23 07/25/24 Rx [Magnesium] Thiamine [Vitamin B-1] 100 mg PO DAILY tab 09/25/23 07/25/24 Rx polyethylene glycoL 3350 [Miralax] 17 gm PO DAILY PRN 10/05/23 07/25/24 History Multivitamins, Thera [Multivitamin 1 tab PO DAILY 10/10/23 07/25/24 History (formulary)] carvediloL [Coreg] 6.25 mg PO DAILY 10/10/23 07/25/24 History Albuterol Nebulized [Ventolin 2.5 mg INHALATION RT-QID PRN 10/24/23 07/25/24 History Nebulized] Clopidogrel [Plavix] 75 mg PO DAILY 06/25/24 07/25/24 History Gabapentin 600 mg PO TID 06/25/24 07/25/24 History Omeprazole 20 mg PO DAILY 06/25/24 07/25/24 History Nicotine 21Mg/24Hr Patch [Habitrol] 1 patch TRANSDERM DAILY #30 patch 07/04/24 07/25/24 Rx Nystatin 100,000Unit/gm Cream 1 applic TOPICAL TID each 07/04/24 07/25/24 Rx [Mycostatin Cream] Rivaroxaban [Xarelto] 2.5 mg PO BID #60 tab 07/04/24 07/25/24 Rx HYDROcodone/APAP 5-325MG [[place] 1 tab PO Q6HR PRN 07/25/24 07/25/24 History 5-325] Meropenem [Merrem] 1 gram IVPB Q8H 07/25/24 07/25/24 History Allergies Allergy/AdvReac Type Severity Reaction Status Date / Time No Known Allergies Allergy Verified 07/25/24 15:08 Surgical - Exam Vital Signs Temp Pulse Resp BP Pulse Ox 97.9 F 99 18 105/51 100 07/25/24 11:36 07/25/24 11:36 07/25/24 11:36 07/25/24 11:36 07/25/24 11:36 Gen: AxO, NAD Pulm: non-labored respirations Abd: soft, non-tender, non-=distended Extrem: no edema seen. Well healed BKA stump seen Results - Labs 07/26/24 07:42 07/26/24 07:42 Abnormal Lab Results - Last 24 Hours (Table) 07/25/24 07/25/24 07/25/24 Range/Units 12:22 13:10 19:04 WBC (3.8-10.6) k/uL RBC 2.40 L (4.30-5.90) m/uL Hgb 6.6 L* (13.0-17.5) gm/dL Hct 22.3 L (39.0-53.0) % MCHC 29.4 L (31.0-37.0) g/dL RDW 19.6 H (11.5-15.5) % Neutrophils # (1.3-7.7) k/uL Lymphocytes # 0.5 L (1.0-4.8) k/uL Retic Count (0.5-2.0) % Creatinine (0.66-1.25) mg/dL Glucose (74-99) mg/dL Iron 14 L (65-175) UG/DL % Saturation 3.58 L (15.00-50.00) Total Protein (PEP) (6.2-8.2) g/dL Crossmatch See Detail 07/25/24 07/25/24 07/26/24 Range/Units 19:04 19:04 07:42 WBC 12.1 H (3.8-10.6) k/uL RBC 3.20 L (4.30-5.90) m/uL Hgb 8.8 L D (13.0-17.5) gm/dL Hct 29.6 L (39.0-53.0) % MCHC 29.7 L (31.0-37.0) g/dL RDW 18.6 H (11.5-15.5) % Neutrophils # 10.4 H (1.3-7.7) k/uL Lymphocytes # 0.4 L (1.0-4.8) k/uL Retic Count 8.4 H (0.5-2.0) % Creatinine (0.66-1.25) mg/dL Glucose (74-99) mg/dL Iron (65-175) UG/DL % Saturation (15.00-50.00) Total Protein (PEP) 5.4 L (6.2-8.2) g/dL Crossmatch 07/26/24 Range/Units 07:42 WBC (3.8-10.6) k/uL RBC (4.30-5.90) m/uL Hgb (13.0-17.5) gm/dL Hct (39.0-53.0) % MCHC (31.0-37.0) g/dL RDW (11.5-15.5) % Neutrophils # (1.3-7.7) k/uL Lymphocytes # (1.0-4.8) k/uL Retic Count (0.5-2.0) % Creatinine 0.60 L (0.66-1.25) mg/dL Glucose 105 H (74-99) mg/dL Iron (65-175) UG/DL % Saturation (15.00-50.00) Total Protein (PEP) (6.2-8.2) g/dL Crossmatch Diabetes panel 07/26/24 Range/Units 07:42 Sodium 139 (137-145) mmol/L Potassium 4.0 (3.5-5.1) mmol/L Chloride 107 (98-107) mmol/L Carbon Dioxide 28 (22-30) mmol/L BUN 16 (9-20) mg/dL Creatinine 0.60 L (0.66-1.25) mg/dL Glucose 105 H (74-99) mg/dL Calcium 8.5 (8.4-10.2) mg/dL Calcium panel 07/26/24 Range/Units 07:42 Calcium 8.5 (8.4-10.2) mg/dL Pituitary panel 07/26/24 Range/Units 07:42 Sodium 139 (137-145) mmol/L Potassium 4.0 (3.5-5.1) mmol/L Chloride 107 (98-107) mmol/L Carbon Dioxide 28 (22-30) mmol/L BUN 16 (9-20) mg/dL Creatinine 0.60 L (0.66-1.25) mg/dL Glucose 105 H (74-99) mg/dL Calcium 8.5 (8.4-10.2) mg/dL Adrenal panel 07/26/24 Range/Units 07:42 Sodium 139 (137-145) mmol/L Potassium 4.0 (3.5-5.1) mmol/L Chloride 107 (98-107) mmol/L Carbon Dioxide 28 (22-30) mmol/L BUN 16 (9-20) mg/dL Creatinine 0.60 L (0.66-1.25) mg/dL Glucose 105 H (74-99) mg/dL Calcium 8.5 (8.4-10.2) mg/dL Assessment and Plan Assessment: Patient is a 74 year old male who presents with anemia Plan: Diet as tolerated Trend hemoglobin: Transfuse per primary IV PPI therapy No acute surgical intervention; patient currently refusing repeat endoscopic evaluation
--- NOTE | 2024-07-27 02:18 | DS ---
DISCHARGE SUMMARY FINAL DIAGNOSES: 1. Anemia, acute on chronic, status post transfusion, improved. 2. History of congestive heart failure, chronic systolic dysfunction, ejection fraction 35%. 3. Recent abdominal aortic aneurysm. 4. Possible right kidney cancer. 5. History of cardiomyopathy. 6. Aortic stenosis. 7. Multiple complex medical issues. 8. Leg infection, on outpatient IV antibiotics. DISCHARGE DISPOSITION: The patient is being discharged in stable condition. Guarded prognosis. The patient is extremely keen on going home. The patient reports he is going to leave the hospital one day or the other. HISTORY OF PRESENT ILLNESS: This is a 74-year-old gentleman with a past medical history of medical problems, admitted with anemia. I am covering for Dr. Lisa. Hemoglobin was found to be 5.7. After 1 unit of transfusion, hemoglobin improved to 8.2, seen by Surgery and Hematology/Oncology and the patient is going to leave the hospital AMA, so the patient is recommended to resume the home medications including IV antibiotics and rest of the medications and follow up with Dr. Mansfield and Surgery and as well as Urology. Prognosis extremely guarded. Further recommendations to follow. The patient is to repeat labs. Lab prescriptions were also given. MMODL / IJN: [id number] /
[2024-07-29 11:53] LABS: Free Kappa Lt Chain Qnt, Serum 3.95 mg/dL (0.33-1.94); Free Lambda Lt Chain Qnt, Seru 2.82 mg/dL (0.57-2.63)
[2024-08-04 11:40] LABS: Albumin 2.74 g/dL (3.80-4.90); Gamma Globulin 0.84 g/dL (0.70-1.50)
== END 2024-07-26 16:17 | disposition home or self-care (01) ==
LOC: EC 11:35 → 3SCARD 14:46 → INTOOBSV 14:46 → 3SCARD 15:57
PROVIDERS: ADMIT Hospitalist; ATTEND Hospitalist
DX: D64.9 Anemia, unspecified (principal); I71.40 Abdominal aortic aneurysm, without rupture, unspecified; E78.5 Hyperlipidemia, unspecified; F17.200 Nicotine dependence, unspecified, uncomplicated; I11.0 Hypertensive heart disease with heart failure; I50.22 Chronic systolic (congestive) heart failure; I25.10 Atherosclerotic heart disease of native coronary artery without angina pectoris; I25.2 Old myocardial infarction; I25.5 Ischemic cardiomyopathy; I35.0 Nonrheumatic aortic (valve) stenosis; I73.9 Peripheral vascular disease, unspecified; N28.89 Other specified disorders of kidney and ureter; Z79.01 Long term (current) use of anticoagulants; Z79.02 Long term (current) use of antithrombotics/antiplatelets; Z79.899 Other long term (current) drug therapy; Z89.512 Acquired absence of left leg below knee; Z95.1 Presence of aortocoronary bypass graft
CPT/HCPCS: 36430 ×2; 96365; 96366 ×2; 96368; 99285; 36415; 86900; 86901; 83921; 80053; 80048; 82607; 82728; 83540; 83550; 83735; 84484; 85025 ×2; 85610; 85045; 85730; 86850; 86920; 84165; 86334; 83883; G0378 ×2; P9016 ×2; J2185 ×2; J2916 ×2

== ENCOUNTER 2024-11-14 13:23 | Observation (INO) | payer MEDICARE ==
--- NOTE | 2024-11-14 14:01 | ED ---
General Adult HPI - General Chief complaint: Recheck/Abnormal Lab/Rx Stated complaint: Abn labs,SOB Time Seen by Provider: 11/14/24 13:32 Source: patient Mode of arrival: ambulatory Limitations: no limitations - History of Present Illness Initial comments: Dictation was produced using [employer] dictation software. please excuse any grammatical, word or spelling errors. Chief Complaint: 74-year-old male presents to the emergency department with weakness History of Present Illness: Patient 74-year-old male he has history of chronic anemia. Patient states that he has had frequent diagnoses of chronic anemia requiring blood transfusions. States that is here today because he believes he is anemic again. Patient denies any shortness of breath he does feel some exertional weakness. Denies any black or bloody stools. Does not take any anticoagulation medications. The ROS documented in this emergency department record has been reviewed and confirmed by me. Those systems with pertinent positive or negative responses have been documented in the HPI. All other systems are other negative and/or noncontributory. - Related Data Home Medications Medication Instructions Recorded Confirmed Loratadine [Claritin] 10 mg PO DAILY 09/08/20 07/25/24 Atorvastatin [Lipitor] 80 mg PO HS 09/20/23 07/25/24 polyethylene glycoL 3350 [Miralax] 17 gm PO DAILY PRN 10/05/23 07/25/24 Multivitamins, Thera [Multivitamin 1 tab PO DAILY 10/10/23 07/25/24 (formulary)] carvediloL [Coreg] 6.25 mg PO DAILY 10/10/23 07/25/24 Albuterol Nebulized [Ventolin 2.5 mg INHALATION RT-QID PRN 10/24/23 07/25/24 Nebulized] Clopidogrel [Plavix] 75 mg PO DAILY 06/25/24 07/25/24 Gabapentin 600 mg PO TID 06/25/24 07/25/24 Omeprazole 20 mg PO DAILY 06/25/24 07/25/24 HYDROcodone/APAP 5-325MG [[place] 1 tab PO Q6HR PRN 07/25/24 07/25/24 5-325] Meropenem [Merrem] 1 gram IVPB Q8H 07/25/24 07/25/24 Previous Rx's Medication Instructions Recorded Acetaminophen Tab [Tylenol] 650 mg PO Q6HR PRN tab 09/25/23 Folic Acid 1 mg PO DAILY tab 09/25/23 Furosemide [Lasix] 40 mg PO DAILY #30 tablet 09/25/23 Magnesium Citrate and Oxide 500 mg PO DAILY #30 cap 09/25/23 [Magnesium] Thiamine [Vitamin B-1] 100 mg PO DAILY tab 09/25/23 Nicotine 21Mg/24Hr Patch [Habitrol] 1 patch TRANSDERM DAILY #30 patch 07/04/24 Nystatin 100,000Unit/gm Cream 1 applic TOPICAL TID each 07/04/24 [Mycostatin Cream] Rivaroxaban [Xarelto] 2.5 mg PO BID #60 tab 07/04/24 Allergies Allergy/AdvReac Type Severity Reaction Status Date / Time No Known Allergies Allergy Verified 11/14/24 13:30 Review of Systems ROS Statement: Those systems with pertinent positive or pertinent negative responses have been documented in the HPI. ROS Other: All systems not noted in ROS Statement are negative. Past Medical History Past Medical History: Coronary Artery Disease (CAD), Heart Failure, Hyperlipidemia, Hypertension, Vascular Disorder Additional Past Medical History / Comment(s): aortic aneusrym repair, herniated disc, peripheral vascular disease, anemia Last Myocardial Infarction Date:: 02/2023 History of Any Multi-Drug Resistant Organisms: None Reported Past Surgical History: Appendectomy, Coronary Bypass/CABG, Orthopedic Surgery Additional Past Surgical History / Comment(s): Right rotater cuff repair, L first and second toe removal. LBKA Past Anesthesia/Blood Transfusion Reactions: No Reported Reaction Past Psychological History: No Psychological Hx Reported Smoking Status: Current every day smoker Past Alcohol Use History: Occasional Past Drug Use History: Marijuana - Past Family History Father Family Medical History: Coronary Artery Disease (CAD) Additional Family Medical History / Comment(s): triple bypass Mother Family Medical History: Coronary Artery Disease (CAD), Dementia General Exam - General Exam Comments Initial Comments: PHYSICAL EXAM: General Impression: Alert and oriented x3, not in acute distress, pallor HEENT: Normocephalic atraumatic, extra-ocular movements intact, pupils equal and reactive to light bilaterally, mucous membranes moist. Cardiovascular: Heart regular rate and rhythm Chest: Able to complete full sentences, no retractions, no tachypnea Abdomen: abdomen soft, non-tender, non-distended, no organomegaly Musculoskeletal: Pulses present and equal in all extremities, no peripheral edema Motor: no focal deficits noted Neurological: CN II-XII grossly intact, no focal motor or sensory deficits noted Skin: Intact with no visualized rashes Psych: Normal affect and mood Limitations: no limitations Course Vital Signs 11/14/24 11/14/24 13:28 13:30 Temperature 97.9 F Pulse Rate 87 81 Respiratory 20 20 Rate Blood Pressure 99/63 118/73 O2 Sat by Pulse 100 96 Oximetry EKG Findings - EKG Comments: EKG Findings:: My EKG interpretation: Ventricular rate 79, sinus rhythm, CO 195, QRS 130, QTc 426. No CO prolongation, no QTC prolongation, no ST or T-wave changes noted. EKG compared to June 25, 2024 showing no changes. Overall, this EKG is unremarkable Medical Decision Making - Medical Decision Making Was pt. sent in by a medical professional or institution ([facility], [employer], urgent care, hospital, or [facility]...) When possible be specific @ -No Did you speak to anyone other than the patient for history (EMS, parent, family, police, friend...)? What history was obtained from this source @ -No Did you review nursing and triage notes (agree or disagree)? Why? @ -I reviewed and agree with nursing and triage notes Were old charts reviewed (outside hosp., previous admission, EMS record, old EKG, old radiological studies, urgent care reports/EKG's, [facility] records)? Report findings @ -Previous labs reviewed. He historically has low hemoglobin ranging between 5 and 7 Differential Diagnosis (chest pain, altered mental status, abdominal pain women, abdominal pain men, vaginal bleeding, musculoskeletal, weakness, fever, dyspnea, syncope, headache, dizziness, GI bleed, back pain, seizure, CVA, palpatations, mental health)? @ -Differential Weakness: Hypoglycemia, shock, sepsis, hyponatremia, anemia, infection, OR, ETOH, adverse medicine reaction, overdose, stroke, this is not meant to be an all-inclusive list. EKG interpreted by me (3pts min.). @ -Above X-rays interpreted by me (1pt min.). @ -None done CT interpreted by me (1pt min.). @ -None done U/S interpreted by me (1pt. min.). @ -None done What testing was considered but not performed or refused? (CT, X-rays, U/S, labs)? Why? @ -None What meds were considered but not given or refused? Why? @ -None Was smoking cessation discussed for >3mins.? @ -No Were there social determinants of health that impacted care today? How? (Homelessness, low income, unemployed, alcoholism, drug addiction, transportation, low edu. Level, literacy, decrease access to med. care, [facility], rehab)? @ -No Was there de-escalation of care discussed even if they declined (Discuss DNR or withdrawal of care, Hospice)? DNR status @ -No What co-morbidities impacted this encounter? (DM, HTN, Smoking, COPD, CAD, Cancer, CVA, ARF, Chemo, Hep., AIDS, mental health diagnosis, sleep apnea, morbid obesity)? @ -Anemia Was patient admitted / discharged? Hospital course, mention meds given and route, prescriptions, significant lab abnormalities, going to OR and other pertinent info. @ -74-year-old male presents emergency department for anemia. Vital signs upon arrival are within acceptable limits. Laboratory evaluation obtained. Hemoglobin 5.1. Patient has extensive history of anemia. Coag panel and metabolic panel is unremarkable. Denies any black or bloody stools. Patient no acute distress. Patient ordered for 2 units transfusion. Will be admitted to hospitalist. Case discussed with hospitalist for admission. Did you discuss the management of the patient with other professionals (professionals i.e. , PA, [employer] WORKER, lab, RT, psych nurse, social welfare research worker, assistant professor of life sciences, teacher, protocol officer, case liner)? Give summary @ -See above Was critical care preformed (if so, how long)? @ -Yes, 33 minutes for critical anemia Undiagnosed new problem with uncertain prognosis? @ -No Drug Therapy requiring intensive monitoring for toxicity (Heparin, Nitro, Insulin, Cardizem)? @ -No Were any procedures done? @ -No Diagnosis/symptom? Acute, or Chronic, or Acute on Chronic? Uncomplicated (without systemic symptoms) or Complicated (systemic symptoms)? @ -Symptomatic anemia Side effects of treatment? @ -No Exacerbation, Progression, or Severe Exacerbation? @ -No Poses a threat to life or bodily function? How? (Chest pain, USA, OR, pneumonia, PE, COPD, DKA, ARF, appy, cholecystitis, CVA, Diverticulitis, Homicidal, Suicidal, threat to staff... and all critical care pts) @ -yes - Lab Data Result diagrams: 11/14/24 13:54 11/14/24 13:54 Lab Results 11/14/24 11/14/24 11/14/24 Range/Units 13:50 13:54 13:54 WBC 5.3 (3.8-10.6) k/uL RBC 2.44 L (4.30-5.90) m/uL Hgb 5.1 L* (13.0-17.5) gm/dL Hct 19.5 L* (39.0-53.0) % MCV 79.8 L (80.0-100.0) fL MCH 20.8 L (25.0-35.0) pg MCHC 26.1 L (31.0-37.0) g/dL RDW 16.1 H (11.5-15.5) % Plt Count 240 (150-450) k/uL MPV 7.9 Neutrophils % 78 % Lymphocytes % 11 % Monocytes % 6 % Eosinophils % 1 % Basophils % 0 % Neutrophils # 4.2 (1.3-7.7) k/uL Lymphocytes # 0.6 L (1.0-4.8) k/uL Monocytes # 0.3 (0-1.0) k/uL Eosinophils # 0.1 (0-0.7) k/uL Basophils # 0.0 (0-0.2) k/uL Hypochromasia Marked Poikilocytosis Moderate Anisocytosis Slight PT 14.0 H (10.0-12.5) sec INR 1.3 H (<1.2) APTT 23.2 (22.0-30.0) sec Sodium (137-145) mmol/L Potassium (3.5-5.1) mmol/L Chloride (98-107) mmol/L Carbon Dioxide (22-30) mmol/L Anion Gap mmol/L BUN (9-20) mg/dL Creatinine (0.66-1.25) mg/dL Est GFR (CKD-EPI)AfAm (>60 ml/min/1.73 sqM) Est GFR (CKD-EPI)NonAf (>60 ml/min/1.73 sqM) Glucose (74-99) mg/dL Calcium (8.4-10.2) mg/dL Total Bilirubin (0.2-1.3) mg/dL AST (17-59) U/L ALT (4-49) U/L Alkaline Phosphatase (38-126) U/L Total Protein (6.3-8.2) g/dL Albumin (3.5-5.0) g/dL Blood Type A Negative Blood Type Recheck A Neg Bld Type Recheck Status No Antibody Screen NEGATIVE Spec Expiration Date 11/17/2024 - 234911/14/24 Range/Units 13:54 WBC (3.8-10.6) k/uL RBC (4.30-5.90) m/uL Hgb (13.0-17.5) gm/dL Hct (39.0-53.0) % MCV (80.0-100.0) fL MCH (25.0-35.0) pg MCHC (31.0-37.0) g/dL RDW (11.5-15.5) % Plt Count (150-450) k/uL MPV Neutrophils % % Lymphocytes % % Monocytes % % Eosinophils % % Basophils % % Neutrophils # (1.3-7.7) k/uL Lymphocytes # (1.0-4.8) k/uL Monocytes # (0-1.0) k/uL Eosinophils # (0-0.7) k/uL Basophils # (0-0.2) k/uL Hypochromasia Poikilocytosis Anisocytosis PT (10.0-12.5) sec INR (<1.2) APTT (22.0-30.0) sec Sodium 132 L (137-145) mmol/L Potassium 5.0 (3.5-5.1) mmol/L Chloride 98 (98-107) mmol/L Carbon Dioxide 24 (22-30) mmol/L Anion Gap 10 mmol/L BUN 23 H (9-20) mg/dL Creatinine 0.81 (0.66-1.25) mg/dL Est GFR (CKD-EPI)AfAm >90 (>60 ml/min/1.73 sqM) Est GFR (CKD-EPI)NonAf 88 (>60 ml/min/1.73 sqM) Glucose 90 (74-99) mg/dL Calcium 9.2 (8.4-10.2) mg/dL Total Bilirubin 0.4 (0.2-1.3) mg/dL AST 23 (17-59) U/L ALT 13 (4-49) U/L Alkaline Phosphatase 53 (38-126) U/L Total Protein 6.6 (6.3-8.2) g/dL Albumin 4.2 (3.5-5.0) g/dL Blood Type Blood Type Recheck Bld Type Recheck Status Antibody Screen Spec Expiration Date Disposition Clinical Impression: Symptomatic anemia Disposition: ADMITTED IP TO THIS HOSP Condition: Fair Referrals: Kelsie Lisa DO [Primary Care Provider] - 1-2 days Decision Time: 14:52
[2024-11-14 14:25] LABS: INR 1.3 (<1.2); Partial Thromboplastin Time 23.2 sec (22.0-30.0)
[2024-11-14 14:28] LABS: Anisocytosis Slight; Basophils % (A) 0 %; Eosinophils # (A) 0.1 k/uL (0-0.7); Eosinophils % (A) 1 %; Hypochromasia Marked; Lymphocytes # (A) 0.6 k/uL (1.0-4.8); Lymphocytes % (A) 11 %; MCH 20.8 pg (25.0-35.0); MCHC 26.1 g/dL (31.0-37.0); MCV 79.8 fL (80.0-100.0); Mean Platelet Volume 7.9; Monocytes # (A) 0.3 k/uL (0-1.0); Monocytes % (A) 6 %; Neutrophils # (A) 4.2 k/uL (1.3-7.7); Neutrophils % (A) 78 %; Platelet Count 240 k/uL (150-450); Poikilocytosis Moderate; RBC 2.44 m/uL (4.30-5.90); RDW 16.1 % (11.5-15.5); WBC 5.3 k/uL (3.8-10.6)
[2024-11-14 14:29] LABS: ALT 13 U/L (4-49); AST 23 U/L (17-59); African American GFR (CKD) >90 (>60 ml/min/1.73 sqM); Albumin 4.2 g/dL (3.5-5.0); Alkaline Phosphatase 53 U/L (38-126); Anion Gap 10 mmol/L; Blood Urea Nitrogen 23 mg/dL (9-20); Calcium 9.2 mg/dL (8.4-10.2); Carbon Dioxide 24 mmol/L (22-30); Chloride 98 mmol/L (98-107); Glucose 90 mg/dL (74-99); Non-African American GFR(CKD) 88 (>60 ml/min/1.73 sqM); Sodium 132 mmol/L (137-145); Total Bilirubin 0.4 mg/dL (0.2-1.3); Total Protein 6.6 g/dL (6.3-8.2)
[2024-11-14 14:32] LABS: HCT 19.5 % (39.0-53.0); HGB 5.1 gm/dL (13.0-17.5)
[2024-11-14] MEDS ORDERED: NALOXONE 0.4 MG/ML 1 ML VIAL IV PRN (14:48)
[2024-11-14] MEDS: SODIUM CHLORIDE 0.9% 1,000 ML IV SCH (15:17)
[2024-11-14] MEDS: RIVAROXABAN 2.5 MG TABLET PO SCH (21:13)
--- NOTE | 2024-11-14 21:13 | XR ---
EXAMINATION TYPE: XR chest 1V portable DATE OF EXAM: 11/14/2024 9:08 PM COMPARISON: 10/10/2023 CLINICAL INDICATION: Male, 74 years old with history of chf, TECHNIQUE: XR chest 1V portable views of the chest are obtained. FINDINGS: Demonstrated are scattered senescent parenchymal change. There is no evidence for focal infiltrate. 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 No evid ence for overt failure this time. Hilar and mediastinal structures are within normal limits. Degenerative changes are seen of the dorsal spine. IMPRESSION: 1. 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 No evidence for overt failure this time. [facility], , 11/14/2024 9:10 PM
[2024-11-14] MEDS: FUROSEMIDE 10 MG/ML 4 ML VIAL IV SCH (21:14)
[2024-11-14] MEDS: HYDROcodone/APAP 5-325MG 1 EACH TAB PO PRN (21:18)
--- NOTE | 2024-11-15 01:27 | HP ---
HISTORY AND PHYSICAL CHIEF COMPLAINT: Dizziness and as well as significant anemia. HISTORY OF PRESENT ILLNESS: This 74-year-old gentleman had chronic anemia and as well as CHF, is complaining of significant weakness and tiredness. The patient came to [facility] and hemoglobin was found to be 5.1. The patient admitted for further evaluation and treatment. There is no history of any fever, rigors, chills at this time. Past hemoglobin was 5.1, 2 units transfusion has been given. PAST MEDICAL HISTORY: Chronic anemia, CHF, CAD, aortic aneurysm repair, CABG. Rest of history and rest of chart are also reviewed. HOME MEDICATIONS: Reviewed include, Aldactone. Dose and rest of medications reviewed. ALLERGIES: None. FAMILY HISTORY: History of CAD and triple bypass. SOCIAL HISTORY: Smoking, THC. REVIEW OF SYSTEMS: 14-point review of systems is negative except as mentioned earlier. PHYSICAL EXAMINATION: VITAL SIGNS: Pulse is 86, blood pressure 107/68, respirations 18. HEENT: Conjunctivae pale. NECK: No JVD. CARDIOVASCULAR: S1, S2. RESPIRATORY: A few scattered rhonchi. ABDOMEN: Soft, nontender. NERVOUS SYSTEM: Nonfocal. LABORATORY DATA: Reviewed. ASSESSMENT: 1. Acute on chronic anemia. 2. History of congestive heart failure with chronic systolic dysfunction, ejection fraction 35%. 3. History of abdominal aortic aneurysm. 4. History of right kidney cancer. 5. History of cardiomyopathy. 6. History of aortic stenosis. 7. Multiple complex medical issues. RECOMMENDATIONS AND DISCUSSION: I recommend to continue current management and continue transfusion. Resume the home medication Lasix. Baseline chest x-ray. Prognosis guarded. Repeat labs in the morning. The patient is stable. The patient will be discharged home tomorrow. MMODL / IJN: [id number] /
[2024-11-15 07:59] LABS: Hypochromasia Marked; MCHC 28.8 g/dL (31.0-37.0); MCV 83.1 fL (80.0-100.0); Mean Platelet Volume 7.1; Platelet Count 186 k/uL (150-450); Poikilocytosis Marked; RBC 3.05 m/uL (4.30-5.90); WBC 5.5 k/uL (3.8-10.6)
[2024-11-15 08:07] LABS: ALT 12 U/L (4-49); AST 27 U/L (17-59); African American GFR (CKD) >90 (>60 ml/min/1.73 sqM); Albumin 3.5 g/dL (3.5-5.0); Alkaline Phosphatase 54 U/L (38-126); Anion Gap 9 mmol/L; Blood Urea Nitrogen 21 mg/dL (9-20); Calcium 8.6 mg/dL (8.4-10.2); Carbon Dioxide 22 mmol/L (22-30); Chloride 103 mmol/L (98-107); Glucose 75 mg/dL (74-99); Non-African American GFR(CKD) >90 (>60 ml/min/1.73 sqM); Potassium 3.7 mmol/L (3.5-5.1); Sodium 134 mmol/L (137-145); Total Bilirubin 0.9 mg/dL (0.2-1.3); Total Protein 5.9 g/dL (6.3-8.2)
[2024-11-15 08:16] LABS: HGB 7.3 gm/dL (13.0-17.5)
[2024-11-15 08:17] LABS: HCT 25.3 % (39.0-53.0)
[2024-11-15] MEDS: carvediloL 6.25 MG TAB PO SCH (08:32)
[2024-11-15] MEDS: SPIRONOLACTONE 25 MG TAB PO SCH (08:33)
[2024-11-15] MEDS: MAGNESIUM OXIDE 400 MG TAB PO SCH (08:33)
[2024-11-15] MEDS: MULTIVITAMINS, THERA 1 EACH TAB PO SCH (08:34)
[2024-11-15] MEDS: FERROUS SULFATE 325 MG TAB PO SCH (08:34)
[2024-11-15] MEDS: FOLIC ACID 1 MG TAB PO SCH (08:34)
[2024-11-15] MEDS: PANTOPRAZOLE 40 MG TABLET PO SCH (08:35)
[2024-11-15] MEDS: THIAMINE 100 MG TAB PO SCH (08:35)
[2024-11-15] MEDS: LORATADINE 10 MG TAB PO SCH (08:35)
[2024-11-15] MEDS: CLOPIDOGREL 75 MG TAB PO SCH (08:35)
[2024-11-15] MEDS: ATORVASTATIN 80 MG TAB PO SCH (08:36)
[2024-11-15] MEDS: polyethylene glycoL 3350 17 GM POWD.PACK PO SCH (08:36)
[2024-11-15 08:48] LABS: Eosinophils # (M) 0.17 k/uL (0-0.7); Lymphocytes # (M) 0.83 k/uL (1.0-4.8); Monocytes # (M) 0.06 k/uL (0-1.0); Neutrophils # (M) 4.46 k/uL (1.3-7.7); Neutrophils % (M) 81 %; Nucleated Red Blood Cells 0 /100 WBC (0-0); Total Cells Counted 100
[2024-11-15 14:17] VITALS: PULSE 67
[2024-11-15 16:40] VITALS: BP 122/49; RESP 14; TEMP 98
--- NOTE | 2024-11-16 08:38 | DS ---
DISCHARGE SUMMARY FINAL DIAGNOSES: 1. Acute on chronic anemia, rule out gastrointestinal blood loss. 2. History of congestive heart failure with chronic systolic dysfunction, ejection fraction 35%. 3. History of abdominal aortic aneurysm. 4. Suspected right kidney cancer. 5. History of cardiomyopathy. 6. History of aortic stenosis. 7. Multiple complex medical issues. DISCHARGE DISPOSITION: The patient will be discharged in stable condition and guarded prognosis. HISTORY OF PRESENT ILLNESS: This 74-year-old gentleman with a past medical history of multiple medical problems, was admitted with hemoglobin of 5.1. Three-unit transfusion was given. The patient is feeling better. However, the possibility of angiomatous malformation possibly in the small bowel is to be considered because of the patient's multiple history. The patient might benefit from mesenteric angiography and runoff. Recommend close followup with primary physician and referral to tertiary care center such as [facility] for the same. Otherwise, follow with Dr. Lisa as well as Dr. Rodriguez. The patient is recommended to resume the home medications as before. PHYSICAL EXAMINATION: VITAL SIGNS: Stable. CARDIOVASCULAR: S1, S2. ABDOMEN: Soft. NERVOUS SYSTEM: No focal deficits. MMODL / IJN: [id number] /
== END 2024-11-15 17:13 | disposition home or self-care (01) ==
LOC: EC 13:23 → 3SCARD 14:49 → 6NMEDSUR 11-15 08:46
PROVIDERS: ADMIT Hospitalist; ATTEND Hospitalist
DX: D64.9 Anemia, unspecified (principal); I11.0 Hypertensive heart disease with heart failure; I50.22 Chronic systolic (congestive) heart failure; I35.0 Nonrheumatic aortic (valve) stenosis; I25.2 Old myocardial infarction; I42.9 Cardiomyopathy, unspecified; E78.5 Hyperlipidemia, unspecified; F17.200 Nicotine dependence, unspecified, uncomplicated; I25.10 Atherosclerotic heart disease of native coronary artery without angina pectoris; I73.9 Peripheral vascular disease, unspecified; Z79.01 Long term (current) use of anticoagulants; Z79.02 Long term (current) use of antithrombotics/antiplatelets; Z85.528 Personal history of other malignant neoplasm of kidney; Z86.79 Personal history of other diseases of the circulatory system; Z95.1 Presence of aortocoronary bypass graft; Z79.899 Other long term (current) drug therapy
CPT/HCPCS: 36430 ×2; 96376; 96374; 99291; 36415; 93005; 86900; 86901; 80053 ×2; 85025 ×2; 85610; 85730; 86850; 86920; 71045; G0378 ×3; P9016 ×2; J1940 ×2

== ENCOUNTER 2024-12-09 14:49 | Emergency (ER) | payer MEDICARE ==
[2024-12-09 15:26] LABS: ALT 14 U/L (4-49); AST 28 U/L (17-59); African American GFR (CKD) >90 (>60 ml/min/1.73 sqM); Albumin 4.1 g/dL (3.5-5.0); Alkaline Phosphatase 73 U/L (38-126); Anion Gap 7 mmol/L; Blood Urea Nitrogen 28 mg/dL (9-20); Calcium 9.1 mg/dL (8.4-10.2); Carbon Dioxide 23 mmol/L (22-30); Chloride 96 mmol/L (98-107); Glucose 85 mg/dL (74-99); Non-African American GFR(CKD) >90 (>60 ml/min/1.73 sqM); Potassium 4.3 mmol/L (3.5-5.1); Sodium 126 mmol/L (137-145); Total Bilirubin 0.5 mg/dL (0.2-1.3); Total Protein 6.5 g/dL (6.3-8.2)
[2024-12-09 15:46] LABS: Anisocytosis Slight; Basophils # (A) 0.1 k/uL (0-0.2); Basophils % (A) 1 %; Eosinophils # (A) 0.1 k/uL (0-0.7); Eosinophils % (A) 2 %; HCT 20.4 % (39.0-53.0); Hypochromasia Marked; Lymphocytes # (A) 0.5 k/uL (1.0-4.8); Lymphocytes % (A) 6 %; MCH 24.8 pg (25.0-35.0); MCHC 29.4 g/dL (31.0-37.0); MCV 84.4 fL (80.0-100.0); Mean Platelet Volume 7.3; Monocytes # (A) 0.6 k/uL (0-1.0); Monocytes % (A) 7 %; Neutrophils # (A) 6.7 k/uL (1.3-7.7); Neutrophils % (A) 81 %; Platelet Count 379 k/uL (150-450); Poikilocytosis Moderate; RBC 2.42 m/uL (4.30-5.90); RDW 18.6 % (11.5-15.5); WBC 8.2 k/uL (3.8-10.6)
--- NOTE | 2024-12-09 16:01 | ED ---
Dizziness HPI - General Chief Complaint: Recheck/Abnormal Lab/Rx Stated Complaint: Abn labs Time Seen by Provider: 12/09/24 15:27 Source: patient, RN notes reviewed, old records reviewed Mode of arrival: ambulatory Limitations: no limitations - History of Present Illness Initial Comments: This is a 74 male to the ER for evaluation of severe dizziness, patient comes in with dizziness lightheadedness weakness with history of anemia concern for anemia. Denies GI bleed MD Complaint: dizziness -: days(s) Timing: gradual onset Description: lightheadedness, off-balance, near-syncope History of Same: Yes History of Trauma: No Severity: moderate Improves With: remaining still Worsens With: movement, exertion Associated Symptoms: denies other symptoms - Related Data Home Medications Medication Instructions Recorded Confirmed Loratadine [Claritin] 10 mg PO DAILY 09/08/20 11/14/24 Atorvastatin [Lipitor] 80 mg PO DAILY 09/20/23 11/14/24 polyethylene glycoL 3350 [Miralax] 17 gm PO DAILY 10/05/23 11/14/24 Multivitamins, Thera [Multivitamin 1 tab PO DAILY 10/10/23 11/14/24 (formulary)] carvediloL [Coreg] 6.25 mg PO DAILY 10/10/23 11/14/24 Clopidogrel [Plavix] 75 mg PO DAILY 06/25/24 11/14/24 Omeprazole 20 mg PO DAILY 06/25/24 11/14/24 HYDROcodone/APAP 5-325MG [[place] 1 tab PO Q6HR PRN 07/25/24 11/14/24 5-325] Ferrous Sulfate [Iron (65 MG 325 mg PO DAILY 11/14/24 11/14/24 Elemental)] Magnesium Oxide [Mag-Ox] 500 mg PO DAILY 11/14/24 11/14/24 Silver Sulfadiazine [Silver 1 applic TOPICAL BID 11/14/24 11/14/24 Sulfadiazine 1%] Spironolactone [Aldactone] 25 mg PO DAILY 11/14/24 11/14/24 Previous Rx's Medication Instructions Recorded Folic Acid 1 mg PO DAILY tab 09/25/23 Furosemide [Lasix] 40 mg PO DAILY #30 tablet 09/25/23 Thiamine [Vitamin B-1] 100 mg PO DAILY tab 09/25/23 Rivaroxaban [Xarelto] 2.5 mg PO BID #60 tab 07/04/24 Allergies Allergy/AdvReac Type Severity Reaction Status Date / Time No Known Allergies Allergy Verified 12/09/24 14:52 Review of Systems ROS Statement: Those systems with pertinent positive or pertinent negative responses have been documented in the HPI. ROS Other: All systems not noted in ROS Statement are negative. Past Medical History Past Medical History: Coronary Artery Disease (CAD), Heart Failure, Hyperlipidemia, Hypertension, Vascular Disorder Additional Past Medical History / Comment(s): aortic aneusrym repair, herniated disc, peripheral vascular disease, anemia Last Myocardial Infarction Date:: 02/2023 History of Any Multi-Drug Resistant Organisms: None Reported Past Surgical History: Appendectomy, Coronary Bypass/CABG, Orthopedic Surgery Additional Past Surgical History / Comment(s): Right rotater cuff repair, L first and second toe removal. LBKA Past Anesthesia/Blood Transfusion Reactions: No Reported Reaction Past Psychological History: No Psychological Hx Reported Smoking Status: Current every day smoker Past Alcohol Use History: Occasional Past Drug Use History: Marijuana - Past Family History Father Family Medical History: Coronary Artery Disease (CAD) Additional Family Medical History / Comment(s): triple bypass Mother Family Medical History: Coronary Artery Disease (CAD), Dementia General Exam Limitations: no limitations General appearance: alert, in no apparent distress Head exam: Present: atraumatic, normocephalic, normal inspection Eye exam: Present: normal appearance, PERRL, EOMI. Absent: scleral icterus, conjunctival injection, periorbital swelling ENT exam: Present: normal exam, mucous membranes moist Neck exam: Present: normal inspection. Absent: tenderness, meningismus, lymphadenopathy Respiratory exam: Present: normal lung sounds bilaterally. Absent: respiratory distress, wheezes, rales, rhonchi, stridor Cardiovascular Exam: Present: regular rate, normal rhythm, normal heart sounds. Absent: systolic murmur, diastolic murmur, rubs, gallop, clicks GI/Abdominal exam: Present: soft, normal bowel sounds. Absent: distended, tenderness, guarding, rebound, rigid Extremities exam: Present: normal inspection, full ROM, normal capillary refill. Absent: tenderness, pedal edema, joint swelling, calf tenderness Back exam: Present: normal inspection Neurological exam: Present: alert, oriented X3, CN II-XII intact Psychiatric exam: Present: normal affect, normal mood Skin exam: Present: warm, dry, intact, normal color. Absent: rash Course Vital Signs 12/09/24 12/09/24 12/09/24 14:50 15:47 17:19 Temperature 97.7 F Pulse Rate 123 H 70 66 Respiratory 22 17 12 Rate Blood Pressure 117/47 116/49 127/48 O2 Sat by Pulse 93 L 98 99 Oximetry - Reevaluation(s) Reevaluation #1: 12/09/24 16:01 Medical records reviewed Reevaluation #4: Was pt. sent in by a medical professional or institution (, [facility], WHEEL TUNER, urgent care, hospital, or fpc...) When possible be specific @ -no Did you speak to anyone other than the patient for history (EMS, parent, family, police, friend...)? What history was obtained from this source @ -no Did you review nursing and triage notes (agree or disagree)? Why? @ -agree Are old charts reviewed (outside hosp., previous admission, EMS record, old EKG, old radiological studies, urgent care reports/EKG's, fpc records)? Report findings @ -yes Differential Diagnosis (chest pain, altered mental status, abdominal pain women, abdominal pain men, vaginal bleeding, weakness, fever, dyspnea, syncope, headache, dizziness, GI bleed, back pain, seizure, CVA, palpatations, mental health, musculoskeletal)? @ -prior EKG interpreted by me (3pts min.). @ -yes X-rays interpreted by me (1pt min.). @ -yes negative for acute disease CT interpreted by me (1pt min.). @ -no U/S interpreted by me (1pt. min.). @ -no What testing was considered but not performed or refused? (CT, X-rays, U/S, labs)? Why? @ -none What meds were considered but not given or refused? Why? @ -none Did you discuss the management of the patient with other professionals (professionals i.e. ADOLPH Langley, WHEEL TUNER, lab, RT, psych nurse, older adult social work specialist, backside grinder, teacher, chief strategy officer, caseworker intake)? Give summary @ -no Was smoking cessation discussed for >3mins.? @ -no Was critical care preformed (if so, how long)? @ -no Were there social determinants of health that impacted care today? How? (Homelessness, low income, unemployed, alcoholism, drug addiction, transp ortation, low edu. Level, literacy, decrease access to med. care, long term, rehab)? @ -none Was there de-escalation of care discussed even if they declined (Discuss DNR or withdrawal of care, Hospice)? DNR status @ -no What co-morbidities impacted this encounter? (DM, HTN, Smoking, COPD, CAD, Cancer, CVA, ARF, Chemo, Hep., AIDS, mental health diagnosis, sleep apnea, morbid obesity)? @ -none Was patient admitted / discharged? Hospital course, mention meds given and route, prescriptions, significant lab abnormalities, going to OR and other pertinent info. @ - Undiagnosed new problem with uncertain prognosis? @ -no Drug Therapy requiring intensive monitoring for toxicity (Heparin, Nitro, Insu gilles, Cardizem)? @ -no Were any procedures done? @ -no Diagnosis/symptom? @ - Acute, or Chronic, or Acute on Chronic? @ -Acute Uncomplicated (without systemic symptoms) or Complicated (systemic symptoms)? @ -Complicated Side effects of treatment? @ -no Exacerbation, Progression, or Severe Exacerbation? @ -exacerbation Poses a threat to life or bodily function? How? (Chest pain, [place], [place], pneumonia, PE, COPD, DKA, ARF, appy, cholecystitis, CVA, Diverticulitis, Homicidal, Suicidal, threat to staff... and all critical care pts) @ -yes Reevaluation #5: Differential Dizziness: Benign paroxysmal positional Vertigo, Meniere's disease, otitis media, acoustic neuroma, vertebrobasilar insufficiency, cerebellar stroke, encephalitis, hypovolemic, arrhythmia, coronary artery syndrome, anemia, this is not meant to be an all-inclusive list Medical Decision Making - Lab Data Result diagrams: 12/09/24 15:09 12/09/24 15:09 Lab Results 12/09/24 12/09/24 12/09/24 Range/Units 15:00 15:09 15:09 WBC 8.2 (3.8-10.6) k/uL RBC 2.42 L (4.30-5.90) m/uL Hgb 6.0 L* (13.0-17.5) gm/dL Hct 20.4 L (39.0-53.0) % MCV 84.4 (80.0-100.0) fL MCH 24.8 L (25.0-35.0) pg MCHC 29.4 L (31.0-37.0) g/dL RDW 18.6 H (11.5-15.5) % Plt Count 379 D (150-450) k/uL MPV 7.3 Neutrophils % 81 % Lymphocytes % 6 % Monocytes % 7 % Eosinophils % 2 % Basophils % 1 % Neutrophils # 6.7 (1.3-7.7) k/uL Lymphocytes # 0.5 L (1.0-4.8) k/uL Monocytes # 0.6 (0-1.0) k/uL Eosinophils # 0.1 (0-0.7) k/uL Basophils # 0.1 (0-0.2) k/uL Manual Slide Review Performed Polychromasia Present Hypochromasia Marked Poikilocytosis Moderate Anisocytosis Slight Sodium 126 L (137-145) mmol/L Potassium 4.3 (3.5-5.1) mmol/L Chloride 96 L (98-107) mmol/L Carbon Dioxide 23 (22-30) mmol/L Anion Gap 7 mmol/L BUN 28 H (9-20) mg/dL Creatinine 0.75 (0.66-1.25) mg/dL Est GFR (CKD-EPI)AfAm >90 (>60 ml/min/1.73 sqM) Est GFR (CKD-EPI)NonAf >90 (>60 ml/min/1.73 sqM) Glucose 85 (74-99) mg/dL Calcium 9.1 (8.4-10.2) mg/dL Total Bilirubin 0.5 (0.2-1.3) mg/dL AST 28 (17-59) U/L ALT 14 (4-49) U/L Alkaline Phosphatase 73 (38-126) U/L Total Protein 6.5 (6.3-8.2) g/dL Albumin 4.1 (3.5-5.0) g/dL Blood Type A Negative Blood Type Recheck A Neg Bld Type Recheck Status No Antibody Screen NEGATIVE Crossmatch See Detail Spec Expiration Date 12/12/20242308 Disposition Clinical Impression: Anemia, Weakness Disposition: HOME SELF-CARE Condition: Fair Instructions (If sedation given, give patient instructions): Anemia (ED) Is patient prescribed a controlled substance at d/c from ED?: No Referrals: Kelsie Lisa DO [Primary Care Provider] - 1-2 days
[2024-12-09 16:07] LABS: Polychromasia Present
[2024-12-09 17:57] VITALS: RESP 18
[2024-12-09 21:02] VITALS: BP 149/68
[2024-12-09 21:06] VITALS: PULSE 74; TEMP 98.5
== END 2024-12-09 21:17 | disposition home or self-care (01) ==
LOC: EC 14:49
DX: D64.9 Anemia, unspecified (principal); F17.290 Nicotine dependence, other tobacco product, uncomplicated
CPT/HCPCS: 36415; 93005; 86900; 86901; 80053; 85025; 86850; 86920; 99284; 36430; P9016

== ENCOUNTER 2024-12-25 12:30 | Observation (INO) | payer MEDICARE ==
--- NOTE | 2024-12-25 13:16 | ED ---
General Adult HPI - General Chief complaint: Weakness Stated complaint: Abn labs Time Seen by Provider: 12/25/24 12:37 Source: patient Mode of arrival: ambulatory Limitations: no limitations - History of Present Illness Initial comments: Dictation was produced using [employer] dictation software. please excuse any grammatical, word or spelling errors. Chief Complaint: 74-year-old male presents to the emergency department for complaint of anemia History of Present Illness: Patient is 74-year-old male he has past medical history of anemia. States that he feels anemic again. States that he has symptoms of weakness pale skin color. Denies any black or bloody stools. Patient has longstanding history of chronic anemia The ROS documented in this emergency department record has been reviewed and confirmed by me. Those systems with pertinent positive or negative responses have been documented in the HPI. All other systems are other negative and/or noncontributory. - Related Data Home Medications Medication Instructions Recorded Confirmed Loratadine [Claritin] 10 mg PO DAILY 09/08/20 12/25/24 Atorvastatin [Lipitor] 80 mg PO DAILY 09/20/23 12/25/24 polyethylene glycoL 3350 [Miralax] 17 gm PO DAILY 10/05/23 12/25/24 Multivitamins, Thera [Multivitamin 1 tab PO DAILY 10/10/23 12/25/24 (formulary)] carvediloL [Coreg] 6.25 mg PO DAILY 10/10/23 12/25/24 Clopidogrel [Plavix] 75 mg PO DAILY 06/25/24 12/25/24 Omeprazole 20 mg PO DAILY 06/25/24 12/25/24 HYDROcodone/APAP 5-325MG [[place] 1 tab PO Q6HR PRN 07/25/24 12/25/24 5-325] Ferrous Sulfate [Iron (65 MG 325 mg PO DAILY 11/14/24 12/25/24 Elemental)] Magnesium Oxide [Mag-Ox] 500 mg PO DAILY 11/14/24 12/25/24 Silver Sulfadiazine [Silver 1 applic TOPICAL BID 11/14/24 12/25/24 Sulfadiazine 1%] Spironolactone [Aldactone] 25 mg PO DAILY 11/14/24 12/25/24 Gabapentin 600 mg PO TID PRN 12/25/24 12/25/24 Previous Rx's Medication Instructions Recorded Folic Acid 1 mg PO DAILY tab 09/25/23 Furosemide [Lasix] 40 mg PO DAILY #30 tablet 09/25/23 Thiamine [Vitamin B-1] 100 mg PO DAILY tab 09/25/23 Rivaroxaban [Xarelto] 2.5 mg PO BID #60 tab 07/04/24 Allergies Allergy/AdvReac Type Severity Reaction Status Date / Time No Known Allergies Allergy Verified 12/25/24 13:25 Review of Systems ROS Statement: Those systems with pertinent positive or pertinent negative responses have been documented in the HPI. ROS Other: All systems not noted in ROS Statement are negative. Past Medical History Past Medical History: Coronary Artery Disease (CAD), Heart Failure, Hyperlipidemia, Hypertension, Vascular Disorder Additional Past Medical History / Comment(s): aortic aneusrym repair, herniated disc, peripheral vascular disease, anemia Last Myocardial Infarction Date:: 02/2023 History of Any Multi-Drug Resistant Organisms: None Reported Past Surgical History: Appendectomy, Coronary Bypass/CABG, Orthopedic Surgery Additional Past Surgical History / Comment(s): Right rotater cuff repair, L first and second toe removal. LBKA Past Anesthesia/Blood Transfusion Reactions: No Reported Reaction Past Psychological History: No Psychological Hx Reported Smoking Status: Current every day smoker Past Alcohol Use History: Occasional Past Drug Use History: Marijuana - Past Family History Father Family Medical History: Coronary Artery Disease (CAD) Additional Family Medical History / Comment(s): triple bypass Mother Family Medical History: Coronary Artery Disease (CAD), Dementia General Exam - General Exam Comments Initial Comments: PHYSICAL EXAM: General Impression: Alert and oriented x3, not in acute distress HEENT: Normocephalic atraumatic, extra-ocular movements intact, pupils equal and reactive to light bilaterally, mucous membranes moist. Cardiovascular: Heart regular rate and rhythm Chest: Able to complete full sentences, no retractions, no tachypnea Abdomen: abdomen soft, non-tender, non-distended, no organomegaly Musculoskeletal: Pulses present and equal in all extremities, no peripheral edema, lower extremity amputation Motor: no focal deficits noted Neurological: CN II-XII grossly intact, no focal motor or sensory deficits noted Skin: Pallor Psych: Normal affect and mood Limitations: no limitations Course Vital Signs 12/25/24 12:36 Temperature 97.8 F Pulse Rate 77 Respiratory 16 Rate Blood Pressure 99/63 O2 Sat by Pulse 99 Oximetry EKG Findings - EKG Comments: EKG Findings:: My EKG interpretation: Ventricular rate 76, sinus rhythm,. Old 205, QRS 135, QTc 4 7. No NE prolongation, no QTC prolongation, no ST or T-wave changes noted. EKG compared to December 10, 2024 showing no changes. Overall, this EKG is unremarkable Medical Decision Making - Medical Decision Making Was pt. sent in by a medical professional or institution (, PA, EMERGENCY CARE ATTENDANT, urgent care, hospital, or senior living...) When possible be specific @ -No Did you speak to anyone other than the patient for history (EMS, parent, family, police, friend...)? What history was obtained from this source @ -No Did you review nursing and triage notes (agree or disagree)? Why? @ -I reviewed and agree with nursing and triage notes Were old charts reviewed (outside hosp., previous admission, EMS record, old EKG, old radiological studies, urgent care reports/EKG's, senior living records)? Report findings @ -No old charts were reviewed Differential Diagnosis (chest pain, altered mental status, abdominal pain women, abdominal pain men, vaginal bleeding, musculoskeletal, weakness, fever, dyspnea, syncope, headache, dizziness, GI bleed, back pain, seizure, CVA, palpatations, mental health)? @ -Differential Weakness: Hypoglycemia, shock, sepsis, hyponatremia, anemia, infection, [place], ETOH, adverse medicine reaction, overdose, stroke, this is not meant to be an all-inclusive list. EKG interpreted by me (3pts min.). @ -See above X-rays interpreted by me (1pt min.). @ -None done CT interpreted by me (1pt min.). @ -None done U/S interpreted by me (1pt. min.). @ -None done What testing was considered but not performed or refused? (CT, X-rays, U/S, labs)? Why? @ -None What meds were considered but not given or refused? Why? @ -None Was smoking cessation discussed for >3mins.? @ -No Were there social determinants of health that impacted care today? How? (Homelessness, low income, unemployed, alcoholism, drug addiction, transportation, low edu. Level, literacy, decrease access to med. care, halfway, rehab)? @ -No Was there de-escalation of care discussed even if they declined (Discuss DNR or withdrawal of care, Hospice)? DNR status @ -No What co-morbidities impacted this encounter? (DM, HTN, Smoking, COPD, CAD, Cancer, CVA, ARF, Chemo, Hep., AIDS, mental health diagnosis, sleep apnea, morbid obesity)? @ -None Was patient admitted / discharged? Hospital course, mention meds given and route, prescriptions, significant lab abnormalities, going to [place] and other [facility] info. @ -74-year-old male presents to the emergency department for recurrent anemia. Signs are stable. Laboratory evaluation obtained. Hemoglobin 5.3. Sodium of 124. Rest of labs unremarkable. Patient given 2 units of blood transfusion will be admitted for further care. Case discussed with hospitalist for admission Did you discuss the management of the patient with other professionals (professionals i.e. , PA, EMERGENCY CARE ATTENDANT, lab, RT, psych nurse, social science teacher, stacking machine operator, teacher, agricultural technical officer, rehabilitation case coordinator)? Give summary @ -No Was critical care preformed (if so, how long)? @ -No Undiagnosed new problem with uncertain prognosis? @ -No Drug Therapy requiring intensive monitoring for toxicity (Heparin, Nitro, Insulin, Cardizem)? @ -No Were any procedures done? @ -No Diagnosis/symptom? Acute, or Chronic, or Acute on Chronic? Uncomplicated (without systemic symptoms) or Complicated (systemic symptoms)? @ -Recurrent anemia Side effects of treatment? @ -No Exacerbation, Progression, or Severe Exacerbation? @ -No Poses a threat to life or bodily function? How? (Chest pain, [place], [place], pneumonia, PE, COPD, DKA, ARF, appy, cholecystitis, CVA, Diverticulitis, Homicidal, Suicidal, threat to staff... and all critical care pts) @ -yes - Lab Data Result diagrams: 12/25/24 13:25 12/25/24 13:25 Lab Results 12/25/24 12/25/24 12/25/24 Range/Units :25 13:25 13:25 WBC 6.61 (4.50-10.00) 10*3/uL RBC 2.21 L (4.40-5.60) 10*6/uL Hgb 5.3 L* (13.0-17.0) g/dL Hct 17.7 L* (39.6-50.0) % MCV 80.1 (80.0-97.0) fL MCH 24.0 L (27.0-32.0) pg MCHC 29.9 L (32.0-37.0) g/dL Plt Count 225 (140-440) 10*3/uL MPV 9.4 L (9.5-12.2) fL Immature Gran % (Auto) 0.5 % Neutrophils % 81.3 % Lymphocytes % 6.7 % Monocytes % 9.8 % Eosinophils % 1.4 % Basophils % 0.3 % Immature Gran # 0.03 (0.00-0.04) 10*3/uL Neutrophils # 5.38 (1.80-7.70) 10*3/uL Lymphocytes # 0.44 L (0.90-5.00) 10*3/uL Monocytes # 0.65 (0.20-1.00) 10*3/uL Eosinophils # 0.09 (0.04-0.35) 10*3/uL Basophils # 0.02 (0.00-0.10) 10*3/uL PT 12.8 H (10.0-12.5) sec INR 1.2 H (<1.2) APTT 23.7 (22.0-30.0) sec Sodium 124 L (137-145) mmol/L Potassium 4.5 (3.5-5.1) mmol/L Chloride 91 L (98-107) mmol/L Carbon Dioxide 24 (22-30) mmol/L Anion Gap 9 mmol/L BUN 23 H (9-20) mg/dL Creatinine 0.75 (0.66-1.25) mg/dL Est GFR (CKD-EPI)AfAm >90 (>60 ml/min/1.73 sqM) Est GFR (CKD-EPI)NonAf >90 (>60 ml/min/1.73 sqM) Glucose 83 (74-99) mg/dL Calcium 8.8 (8.4-10.2) mg/dL Total Bilirubin 0.4 (0.2-1.3) mg/dL AST 30 (17-59) U/L ALT 12 (4-49) U/L Alkaline Phosphatase 59 (38-126) U/L Total Protein 6.1 L (6.3-8.2) g/dL Albumin 3.8 (3.5-5.0) g/dL Disposition Clinical Impression: Anemia Disposition: ADMITTED IP TO THIS HOSP Condition: Fair Referrals: Kelsie Lisa DO [Primary Care Provider] - 1-2 days Decision Time: 14:32
[2024-12-25 13:40] LABS: Basophils # (A) 0.02 10*3/uL (0.00-0.10); Basophils % (A) 0.3 %; Eosinophils # (A) 0.09 10*3/uL (0.04-0.35); Eosinophils % (A) 1.4 %; Lymphocytes # (A) 0.44 10*3/uL (0.90-5.00); Lymphocytes % (A) 6.7 %; MCHC 29.9 g/dL (32.0-37.0); MCV 80.1 fL (80.0-97.0); Mean Platelet Volume 9.4 fL (9.5-12.2); Monocytes # (A) 0.65 10*3/uL (0.20-1.00); Monocytes % (A) 9.8 %; Neutrophils # (A) 5.38 10*3/uL (1.80-7.70); Neutrophils % (A) 81.3 %; Platelet Count 225 10*3/uL (140-440); RBC 2.21 10*6/uL (4.40-5.60); WBC 6.61 10*3/uL (4.50-10.00)
[2024-12-25 13:42] LABS: HCT 17.7 % (39.6-50.0); HGB 5.3 g/dL (13.0-17.0)
[2024-12-25 13:51] LABS: INR 1.2 (<1.2); Partial Thromboplastin Time 23.7 sec (22.0-30.0); Prothrombin Time 12.8 sec (10.0-12.5)
[2024-12-25 13:59] LABS: ALT 12 U/L (4-49); AST 30 U/L (17-59); African American GFR (CKD) >90 (>60 ml/min/1.73 sqM); Albumin 3.8 g/dL (3.5-5.0); Alkaline Phosphatase 59 U/L (38-126); Anion Gap 9 mmol/L; Blood Urea Nitrogen 23 mg/dL (9-20); Calcium 8.8 mg/dL (8.4-10.2); Carbon Dioxide 24 mmol/L (22-30); Chloride 91 mmol/L (98-107); Glucose 83 mg/dL (74-99); Non-African American GFR(CKD) >90 (>60 ml/min/1.73 sqM); Potassium 4.5 mmol/L (3.5-5.1); Sodium 124 mmol/L (137-145); Total Bilirubin 0.4 mg/dL (0.2-1.3); Total Protein 6.1 g/dL (6.3-8.2)
[2024-12-25] MEDS ORDERED: NALOXONE 0.4 MG/ML 1 ML VIAL IV PRN (14:32)
[2024-12-25] MEDS ORDERED: HYDROcodone/APAP 5-325MG 1 EACH TAB PO PRN (17:44)
--- NOTE | 2024-12-25 18:33 | P.HPIM ---
History of Present Illness H&P Date: 12/25/24 Chief Complaint: Low hemoglobin Patient is a 74-year-old male with a past medical history of hypertension, hyperlipidemia, chronic anemia, iron deficiency on regular IV infusions, coronary disease status post CABG and chronic CHF with reduced EF, peripheral vascular disease and currently everyday smoker and occasional marijuana use. Patient was presented to ER with complaints of anemia. Patient states that he is having worsening shortness of breath, generalized weakness and lower extremity swelling and pale looking skin. Otherwise denied any hematemesis or melena. Patient does have longstanding history of chronic anemia and gets frequent blood transfusions. Denied any fever or chills. No chest pain. No headache or dizziness or lightheadedness. Laboratory showed WBC 6.6 hemoglobin 5.3 and platelets 225 MCV 80.1 INR 1.2, sodium 124 potassium 4.5 chloride 91 bicarb is 24 BUN 23 and creatinine 0.75 and blood sugar 83 and liver enzymes are elevated albumin 3.8. Past Medical History Past Medical History: Coronary Artery Disease (CAD), Heart Failure, Hyperlipidemia, Hypertension, Vascular Disorder Additional Past Medical History / Comment(s): aortic aneusrym repair, herniated disc, peripheral vascular disease, anemia Last Myocardial Infarction Date:: 02/2023 History of Any Multi-Drug Resistant Organisms: None Reported Past Surgical History: Appendectomy, Coronary Bypass/CABG, Orthopedic Surgery Additional Past Surgical History / Comment(s): Right rotater cuff repair, L first and second toe removal. LBKA Past Anesthesia/Blood Transfusion Reactions: No Reported Reaction Past Psychological History: No Psychological Hx Reported Smoking Status: Current every day smoker Past Alcohol Use History: Occasional Additional Past Alcohol Use History / Comment(s): 5 a day Past Drug Use History: Marijuana Additional Drug Use History / Comment(s): Pt aware not to use 24hrs before procedure - Past Family History Father Family Medical History: Coronary Artery Disease (CAD) Additional Family Medical History / Comment(s): triple bypass Mother Family Medical History: Coronary Artery Disease (CAD), Dementia Medications and Allergies Home Medications Medication Instructions Recorded Confirmed Type Loratadine [Claritin] 10 mg PO DAILY 09/08/20 12/25/24 History Atorvastatin [Lipitor] 80 mg PO DAILY 09/20/23 12/25/24 History Folic Acid 1 mg PO DAILY tab 09/25/23 12/25/24 Rx Furosemide [Lasix] 40 mg PO DAILY #30 tablet 09/25/23 12/25/24 Rx Thiamine [Vitamin B-1] 100 mg PO DAILY tab 09/25/23 12/25/24 Rx polyethylene glycoL 3350 [Miralax] 17 gm PO DAILY 10/05/23 12/25/24 History Multivitamins, Thera [Multivitamin 1 tab PO DAILY 10/10/23 12/25/24 History (formulary)] carvediloL [Coreg] 6.25 mg PO DAILY 10/10/23 12/25/24 History Clopidogrel [Plavix] 75 mg PO DAILY 06/25/24 12/25/24 History Omeprazole 20 mg PO DAILY 06/25/24 12/25/24 History Rivaroxaban [Xarelto] 2.5 mg PO BID #60 tab 07/04/24 12/25/24 Rx HYDROcodone/APAP 5-325MG [[place] 1 tab PO Q6HR PRN 07/25/24 12/25/24 History 5-325] Ferrous Sulfate [Iron (65 MG 325 mg PO DAILY 11/14/24 12/25/24 History Elemental)] Magnesium Oxide [Mag-Ox] 500 mg PO DAILY 11/14/24 12/25/24 History Silver Sulfadiazine [Silver 1 applic TOPICAL BID 11/14/24 12/25/24 History Sulfadiazine 1%] Spironolactone [Aldactone] 25 mg PO DAILY 11/14/24 12/25/24 History Gabapentin 600 mg PO TID PRN 12/25/24 12/25/24 History Allergies Allergy/AdvReac Type Severity Reaction Status Date / Time No Known Allergies Allergy Verified 12/25/24 13:25 Physical Exam Vitals: Vital Signs Temp Pulse Pulse Resp BP BP Pulse Ox 12/25/24 17:10 97.8 F 97 16 141/89 12/25/24 16:50 97.5 F L 74 16 127/79 96 12/25/24 16:41 97.6 F 77 16 136/63 95 12/25/24 16:20 72 16 145/62 96 12/25/24 15:46 97.8 F 72 18 121/94 99 12/25/24 12:36 97.8 F 77 16 99/63 99 Intake and Output 12/25/24 12/25/24 12/25/24 06:59 14:59 22:59 Intake Total 222 Output Total 500 Balance -278 Intake: Oral 222 Blood Product 0 Rc As-1 Unit 0 [id number] Output: Urine 500 Other: # Bowel Movements 0 Weight 63.503 kg 63.503 kg Results CBC & Chem 7: 12/25/24 13:25 12/25/24 13:25 Labs: Abnormal Lab Results - Last 24 Hours (Table) 12/25/24 12/25/24 12/25/24 Range/Units 13:25 13:25 13:25 RBC 2.21 L (4.40-5.60) 10*6/uL Hgb 5.3 L* (13.0-17.0) g/dL Hct 17.7 L* (39.6-50.0) % MCH 24.0 L (27.0-32.0) pg MCHC 29.9 L (32.0-37.0) g/dL MPV 9.4 L (9.5-12.2) fL Lymphocytes # 0.44 L (0.90-5.00) 10*3/uL PT 12.8 H (10.0-12.5) sec INR 1.2 H (<1.2) Sodium 124 L (137-145) mmol/L Chloride 91 L (98-107) mmol/L BUN 23 H (9-20) mg/dL Total Protein 6.1 L (6.3-8.2) g/dL Crossmatch 12/25/24 Range/Units 13:25 RBC (4.40-5.60) 10*6/uL Hgb (13.0-17.0) g/dL Hct (39.6-50.0) % MCH (27.0-32.0) pg MCHC (32.0-37.0) g/dL MPV (9.5-12.2) fL Lymphocytes # (0.90-5.00) 10*3/uL PT (10.0-12.5) sec INR (<1.2) Sodium (137-145) mmol/L Chloride (98-107) mmol/L BUN (9-20) mg/dL Total Protein (6.3-8.2) g/dL Crossmatch See Detail Thrombosis Risk Factor Assmnt - DVT/VTE Prophylaxis DVT/VTE Prophylaxis: Pharmacologic Prophylaxis ordered - Choose All That Apply Each Risk Factor Represents 2 Points: Age 61-74 years Thrombosis Risk Factor Assessment Total Risk Factor Score: 2 Thrombosis Risk Factor Assessment Level: Low Risk Assessment and Plan Assessment: Symptomatic anemia Acute on chronic anemia Chronic anemia with iron deficiency. Patient states that his GI workup x 2 was negative. 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 Hypovolemic hyponatremia History of right renal mass suspected cancer. Noncompliant with outpatient follow-up. Chronic CHF with ejection fraction 35% History of abdominal aortic aneurysm Status post percutaneous endovascular aortic repair and balloon angioplasty of the left common iliac and external iliac artery. Ischemic cardiomyopathy Mild aortic stenosis Coronary arteries with history of CABG Peripheral vascular disease Hypertension Hyperlipidemia Nicotine dependence and occasional marijuana use Alcohol use disorder GI prophylaxis with PPI Plan: Patient will be continued on telemonitoring. Continue with PPI 40 mg daily and 2 units of PRBC was ordered. Plavix and Xarelto are on hold currently until hemoglobin level improves. Continue with home medications and follow-up closely. Time with Patient: Greater than 30
[2024-12-25] MEDS: SODIUM CHLORIDE 0.9% 1,000 ML IV SCH (19:04)
[2024-12-25] MEDS: GABAPENTIN 300 MG CAP PO PRN (20:17)
[2024-12-26] MEDS: PANTOPRAZOLE 40 MG TABLET PO SCH (06:12)
[2024-12-26 06:46] LABS: Basophils # (A) 0.04 10*3/uL (0.00-0.10); Basophils % (A) 0.6 %; Eosinophils # (A) 0.19 10*3/uL (0.04-0.35); Eosinophils % (A) 2.9 %; Lymphocytes # (A) 0.39 10*3/uL (0.90-5.00); Lymphocytes % (A) 5.9 %; MCHC 31.3 g/dL (32.0-37.0); Mean Platelet Volume 9.9 fL (9.5-12.2); Monocytes # (A) 0.71 10*3/uL (0.20-1.00); Monocytes % (A) 10.8 %; Neutrophils # (A) 5.25 10*3/uL (1.80-7.70); Neutrophils % (A) 79.5 %; Platelet Count 226 10*3/uL (140-440); RBC 2.89 10*6/uL (4.40-5.60); RDW 16.1 % (11.5-14.5)
[2024-12-26 06:49] LABS: HGB 7.5 g/dL (13.0-17.0)
[2024-12-26 06:55] LABS: African American GFR (CKD) >90 (>60 ml/min/1.73 sqM); Anion Gap 5 mmol/L; Blood Urea Nitrogen 16 mg/dL (9-20); Calcium 8.9 mg/dL (8.4-10.2); Carbon Dioxide 26 mmol/L (22-30); Chloride 98 mmol/L (98-107); Glucose 80 mg/dL (74-99); Non-African American GFR(CKD) >90 (>60 ml/min/1.73 sqM); Potassium 3.8 mmol/L (3.5-5.1); Sodium 129 mmol/L (137-145)
[2024-12-26 07:57] VITALS: RESP 16
[2024-12-26] MEDS: MULTIVITAMINS, THERA 1 EACH TAB PO SCH (07:58)
[2024-12-26] MEDS: ATORVASTATIN 80 MG TAB PO SCH (07:58)
[2024-12-26] MEDS: THIAMINE 100 MG TAB PO SCH (07:58)
[2024-12-26] MEDS: polyethylene glycoL 3350 17 GM POWD.PACK PO SCH (07:58)
[2024-12-26] MEDS: FOLIC ACID 1 MG TAB PO SCH (07:58)
[2024-12-26] MEDS: MAGNESIUM OXIDE 400 MG TAB PO SCH (07:58)
[2024-12-26] MEDS: carvediloL 6.25 MG TAB PO SCH (07:58)
[2024-12-26] MEDS: FUROSEMIDE 40 MG TAB PO SCH (07:58)
[2024-12-26] MEDS: LORATADINE 10 MG TAB PO SCH (07:58)
[2024-12-26] MEDS: FERROUS SULFATE 325 MG TAB PO SCH (07:58)
[2024-12-26] MEDS: SPIRONOLACTONE 25 MG TAB PO SCH (07:58)
[2024-12-26 11:38] VITALS: BP 118/58; PULSE 62; TEMP 97.7
== END 2024-12-26 13:44 | disposition home or self-care (01) ==
LOC: EC 12:30 → 3SCARD 14:34
PROVIDERS: ADMIT Internal Medicine; ATTEND Internal Medicine
DX: D50.9 Iron deficiency anemia, unspecified (principal); I11.0 Hypertensive heart disease with heart failure; I50.22 Chronic systolic (congestive) heart failure; E86.1 Hypovolemia; E87.1 Hypo-osmolality and hyponatremia; E78.5 Hyperlipidemia, unspecified; I73.9 Peripheral vascular disease, unspecified; F12.90 Cannabis use, unspecified, uncomplicated; I25.5 Ischemic cardiomyopathy; I35.0 Nonrheumatic aortic (valve) stenosis; F10.10 Alcohol abuse, uncomplicated; F17.200 Nicotine dependence, unspecified, uncomplicated; Z91.199 Patient's noncompliance with other medical treatment and regimen due to unspecified reason; Z79.02 Long term (current) use of antithrombotics/antiplatelets; Z79.01 Long term (current) use of anticoagulants; Z79.899 Other long term (current) drug therapy; Z95.1 Presence of aortocoronary bypass graft; Z86.79 Personal history of other diseases of the circulatory system; Z98.62 Peripheral vascular angioplasty status
CPT/HCPCS: 36430; 99285; 36415; 93005; 86900; 86901; 80053; 80048; 85025 ×2; 85610; 85730; 86850; 86920; G0378 ×2; P9016

== ENCOUNTER 2025-01-11 08:13 | Inpatient (IN) | payer MEDICARE ==
[2025-01-11] MEDS ORDERED: NITROGLYCERIN SL TABS 0.4 MG TAB SUBLINGUAL PRN (08:28)
[2025-01-11] MEDS: ATORVASTATIN 80 MG TAB PO STA (08:31)
--- NOTE | 2025-01-11 08:39 | ED ---
General Adult HPI - General Chief complaint: Chest Pain Stated complaint: Chest pain Time Seen by Provider: 01/11/25 08:28 Source: patient, EMS Mode of arrival: EMS Limitations: no limitations - History of Present Illness Initial comments: Patient is a 74-year-old man history of CAD, anemia requiring frequent blood transfusions presenting today for chest pain. Patient states this morning he woke up with chest tightness rating across the right side of his chest. He felt lightheaded, mildly short of breath. He called EMS who gave him 324 of aspirin. On arrival patient states pain has resolved however he currently feels fatigued and endorses mild lightheadedness. He currently denies difficulty in breathing, nausea, abdominal pain, black or bloody stools. He states he does have a history of chronic anemia and feels like his hemoglobin is low, requires a blood transfusion about once every month, last was about 1 month ago. Patient is anticoagulated on Xarelto. When patient was asked if he knows about his chronic anemia, and asked if he was told he has GI bleed, he states he has not had one in the past. - Related Data Home Medications Medication Instructions Recorded Confirmed Loratadine [Claritin] 10 mg PO DAILY 09/08/20 01/11/25 Atorvastatin [Lipitor] 80 mg PO DAILY 09/20/23 01/11/25 polyethylene glycoL 3350 [Miralax] 17 gm PO DAILY 10/05/23 01/11/25 Multivitamins, Thera [Multivitamin 1 tab PO DAILY 10/10/23 01/11/25 (formulary)] carvediloL [Coreg] 6.25 mg PO DAILY 10/10/23 01/11/25 Clopidogrel [Plavix] 75 mg PO DAILY 06/25/24 01/11/25 Omeprazole 20 mg PO DAILY 06/25/24 01/11/25 HYDROcodone/APAP 5-325MG [[place] 1 tab PO Q6HR PRN 07/25/24 01/11/25 5-325] Ferrous Sulfate [Iron (65 MG 325 mg PO DAILY 11/14/24 01/11/25 Elemental)] Magnesium Oxide [Mag-Ox] 500 mg PO DAILY 11/14/24 01/11/25 Silver Sulfadiazine [Silver 1 applic TOPICAL BID 11/14/24 01/11/25 Sulfadiazine 1%] Spironolactone [Aldactone] 25 mg PO DAILY 11/14/24 01/11/25 Gabapentin 600 mg PO TID PRN 12/25/24 01/11/25 Previous Rx's Medication Instructions Recorded Folic Acid 1 mg PO DAILY tab 09/25/23 Furosemide [Lasix] 40 mg PO DAILY #30 tablet 09/25/23 Thiamine [Vitamin B-1] 100 mg PO DAILY tab 09/25/23 Aspirin 81 mg PO DAILY #30 tab 01/12/25 Nitroglycerin Sl Tabs [Nitrostat] 0.4 mg SUBLINGUAL Q5M PRN #30 tab 01/12/25 Allergies Allergy/AdvReac Type Severity Reaction Status Date / Time No Known Allergies Allergy Verified 01/11/25 13:36 Review of Systems ROS Statement: Those systems with pertinent positive or pertinent negative responses have been documented in the HPI. ROS Other: All systems not noted in ROS Statement are negative. Past Medical History Past Medical History: Coronary Artery Disease (CAD), Heart Failure, Hyperlipidemia, Hypertension, Vascular Disorder Additional Past Medical History / Comment(s): aortic aneusrym repair, herniated disc, peripheral vascular disease, anemia Last Myocardial Infarction Date:: 02/2023 History of Any Multi-Drug Resistant Organisms: None Reported Past Surgical History: Appendectomy, Coronary Bypass/CABG, Orthopedic Surgery Additional Past Surgical History / Comment(s): Right rotater cuff repair, L first and second toe removal. LBKA Past Anesthesia/Blood Transfusion Reactions: No Reported Reaction Past Psychological History: No Psychological Hx Reported Smoking Status: Current every day smoker Past Alcohol Use History: Occasional Past Drug Use History: Marijuana - Past Family History Father Family Medical History: Coronary Artery Disease (CAD) Additional Family Medical History / Comment(s): triple bypass Mother Family Medical History: Coronary Artery Disease (CAD), Dementia General Exam - General Exam Comments Initial Comments: PE: CONSTITUTIONAL: No apparent distress, ill-appearing, nontoxic SKIN: Warm, dry, no jaundice, hives or petechiae, generalized pallor EYES: Pupils are equally round, extraocular movements intact without nystagmus, pale conjunctiva, non-icteric sclera HENT: Normocephalic, atraumatic, moist mucus membranes, oropharynx clear without exudates NECK: , Full range of motion, normal appearance PULMONARY: Clear to auscultation without wheezes, rhonchi, or rales, normal excursion, no accessory muscle use and no stridor CARDIOVASCULAR: Regular rate, rhythm, normal S1 and S2. No appreciated murmurs, rubs or gallops. Strong radial pulses with intact distal perfusion. No lower extremity edema GASTROINTESTINAL: Soft, active bowel sounds throughout, non-tender, non-dist ended, no palpable masses, no rebound or guarding. No hepatosplenomegaly MUSCULOSKELETAL: Extremities have no gross deformity, no edema, redness, or swelling. No calf swelling NEUROLOGIC:_a/o x 3, GCS 15, normal mentation and speech. Moves all extremities x 4 without motor or sensory deficit PSYCHIATRIC:_normal mood and affect, thought process is clear and linear Limitations: no limitations Course Vital Signs 01/11/25 01/11/25 01/11/25 08:15 08:33 08:40 Temperature 98.4 F Pulse Rate 103 H 99 89 Respiratory 20 20 20 Rate Blood Pressure 114/61 111/57 110/46 O2 Sat by Pulse 98 97 100 Oximetry EKG Findings - EKG Comments: EKG Findings:: Sinus tachycardia, rate 102 bpm left axis deviation, intervals within acceptable limits, hyperacute T waves leads V3, V4, ST depression in lead V5, V6, leads I and aVL, ST elevation in lead III and aVF, consistent with STEMI, no arythmia Medical Decision Making - Medical Decision Making Was pt. sent in by a medical professional or institution ([facility]angle[facility], CORPORATE TRAVEL AGENT, urgent care, hospital, or [facility]...) When possible be specific @ -No Did you speak to anyone other than the patient for history (EMS, parent, family, police, friend...)? What history was obtained from this source @ -No Did you review nursing and triage notes (agree or disagree)? Why? @ -I reviewed nursing and triage notes Were old charts reviewed (outside hosp., previous admission, EMS record, old EKG, old radiological studies, urgent care reports/EKG's, [facility] records)? Report findings @ -Medical records reviewed patient was just recently mended onFor anemia, his hemoglobin at that point 5.2 on review of H&P from that admission, but also. Patient has had a GI workup that was negative x 2, per this note it appears that it is suspected the patient has had small bowel AVMs related to blood loss exacerbated by chronic antiplatelet therapy additionally, compared to EKG performed on 12/28/2024, ST elevations in lead III, aVF and ST depressions lead I and aVL are new from prior Differential Diagnosis (chest pain, altered mental status, abdominal pain women, abdominal pain men, vaginal bleeding, weakness, fever, dyspnea, syncope, headache, dizziness, GI bleed, back pain, seizure, CVA, palpatations, mental health, musculoskeletal)? Differential Chest Pain: Stable Angina, Unstable Angina, STEMI, NSTEMI Aortic Dissection, pericarditis, pleurisy, chostochondirits, Pneumothorax, Musculoskeletal, Esophageal Spasm GERD, Cholecystitis, Pancreatitis, Zoster, this is not meant to be an all- inclusive list. EKG interpreted by me (3pts min.). @ -As above X-rays interpreted by me (1pt min.). Personally viewed chest x-ray I see no evidence of mediastinal widening or pneumothorax, I agree with radiologist interpretation CT interpreted by me (1pt min.). @ -None done U/S interpreted by me (1pt. min.). @ -None done What testing was considered but not performed or refused? (CT, X-rays, U/S, labs)? Why? @ -None What meds were considered but not given or refused? Why? @ -None Did you discuss the management of the patient with other professionals (pro fessionals i.e. , PA, CORPORATE TRAVEL AGENT, lab, RT, psych nurse, social sciences department chair, taxi driver, teacher, philanthropy officer, high risk case manager)? Give summary @Case was discussed with Dr. Rebollar out of concern for STEMI, who kindly i mmediately evaluated patient, patient to be taken to [facility] Was smoking cessation discussed for >3mins.? @ -No Was critical care preformed (if so, how long)? @30 minutes Were there social determinants of health that impacted care today? How? (Homelessness, low income, unemployed, alcoholism, drug addiction, transportation, low edu. Level, literacy, decrease access to med. care, snf, rehab)? @ -No Was there de-escalation of care discussed even if they declined (Discuss DNR or withdrawal of care, Hospice)? @ -No What co-morbidities impacted this encounter? (DM, HTN, Smoking, COPD, CAD, Cance r, CVA, ARF, Chemo, Hep., AIDS, mental health diagnosis, sleep apnea, morbid obesity)? @Chronic anemia requiring multiple blood transfusion, CAD, hyperlipidemia, hypertension, CHF Was patient admitted / discharged? Hospital course, mention meds given and route, prescriptions, significant lab abnormalities, going to OR and other pertinent info. @ -Admission -patient is a 74-year-old gentleman presenting today for chest pain that rated across the right side of his chest that woke him up this morning. On arrival states pain has resolved, has been given 324 mg aspirin. EKG was brought to myself and appeared consistent with STEMI. STEMI alert was activated. On my assessment patient is pale and chronicly ill-appearing but nontoxic. I informed him of EKG findings and anticipated plan for cardiology evaluation and concern for STEMI. Case was discussed with Dr. Ramon, cardiology, patient will go for cardiac cath. Of note, hx of anemia requiring transfusions was noted however risk vs benefit in setting of potential STEMI was weighted, and ultimately it was decided that benefit outweighed risk. Heparin ordered, pt transferred to entry level lab technician in stable condition. Case discussed with Dr. Llanos, [facility], who kindly accepted pt for admission. Of note, pt's labs resulted after pt was taken to entry level lab technician and pt was found to be severely anemic, w/ hgb 4.8. These findings were relayed to admitting physician at time of our conversation. Drug Therapy requiring intensive monitoring for toxicity (Heparin, Nitro, Insulin, Cardizem)? heparin Were any procedures done? @ -No Diagnosis/symptom? STEMI, acute on chronic anemia Acute, or Chronic, or Acute on Chronic? @acute Uncomplicated (without systemic symptoms) or Complicated (systemic symptoms)? @complicated Side effects of treatment? @ -No Exacerbation, Progression, or Severe Exacerbation? @ -No Poses a threat to life or bodily function? How? (Chest pain, [place], [place], pneumonia, PE, COPD, DKA, ARF, appy, cholecystitis, CVA, Diverticulitis, Homicidal, Suicidal, threat to staff... and all critical care pts) @ Yes - Lab Data Result diagrams: 01/12/25 05:23 01/12/25 05:23 Lab Results 01/11/25 01/11/25 01/11/25 Range/Units 08:20 08:32 08:32 WBC 5.76 (4.50-10.00) 10*3/uL RBC 1.99 L (4.40-5.60) 10*6/uL Hgb 4.8 L* D (13.0-17.0) g/dL Hct 16.1 L* (39.6-50.0) % MCV 80.9 (80.0-97.0) fL MCH 24.1 L (27.0-32.0) pg MCHC 29.8 L (32.0-37.0) g/dL Plt Count 330 (140-440) 10*3/uL MPV 9.0 L (9.5-12.2) fL Immature Gran % (Auto) 0.5 % Neutrophils % 82.0 % Lymphocytes % 5.2 % Monocytes % 10.8 % Eosinophils % 1.2 % Basophils % 0.3 % Immature Gran # 0.03 (0.00-0.04) 10*3/uL Neutrophils # 4.72 (1.80-7.70) 10*3/uL Lymphocytes # 0.30 L (0.90-5.00) 10*3/uL Monocytes # 0.62 (0.20-1.00) 10*3/uL Eosinophils # 0.07 (0.04-0.35) 10*3/uL Basophils # 0.02 (0.00-0.10) 10*3/uL PT 11.8 (10.0-12.5) sec INR 1.1 (<1.2) APTT 21.5 L (22.0-30.0) sec Sodium (137-145) mmol/L Potassium (3.5-5.1) mmol/L Chloride (98-107) mmol/L Carbon Dioxide (22-30) mmol/L Anion Gap mmol/L BUN (9-20) mg/dL Creatinine (0.66-1.25) mg/dL Est GFR (CKD-EPI)AfAm (>60 ml/min/1.73 sqM) Est GFR (CKD-EPI)NonAf (>60 ml/min/1.73 sqM) Glucose (74-99) mg/dL Calcium (8.4-10.2) mg/dL Total Bilirubin (0.2-1.3) mg/dL AST (17-59) U/L ALT (4-49) U/L Alkaline Phosphatase (38-126) U/L Troponin I (0.000-0.034) ng/mL NT-Pro-B Natriuret Pep pg/mL Total Protein (6.3-8.2) g/dL Albumin (3.5-5.0) g/dL Lipase (23-300) U/L Blood Type A Negative Blood Type Recheck A Neg Bld Type Recheck Status No Antibody Screen NEGATIVE Crossmatch See Detail Spec Expiration Date 01/14/2025 - 231901/11/25 01/11/25 Range/Units 08:32 08:32 WBC (4.50-10.00) 10*3/uL RBC (4.40-5.60) 10*6/uL Hgb (13.0-17.0) g/dL Hct (39.6-50.0) % MCV (80.0-97.0) fL MCH (27.0-32.0) pg MCHC (32.0-37.0) g/dL Plt Count (140-440) 10*3/uL MPV (9.5-12.2) fL Immature Gran % (Auto) % Neutrophils % % Lymphocytes % % Monocytes % % Eosinophils % % Basophils % % Immature Gran # (0.00-0.04) 10*3/uL Neutrophils # (1.80-7.70) 10*3/uL Lymphocytes # (0.90-5.00) 10*3/uL Monocytes # (0.20-1.00) 10*3/uL Eosinophils # (0.04-0.35) 10*3/uL Basophils # (0.00-0.10) 10*3/uL PT (10.0-12.5) sec INR (<1.2) APTT (22.0-30.0) sec Sodium 129 L (137-145) mmol/L Potassium 4.6 (3.5-5.1) mmol/L Chloride 96 L (98-107) mmol/L Carbon Dioxide 25 (22-30) mmol/L Anion Gap 8 mmol/L BUN 20 (9-20) mg/dL Creatinine 0.69 (0.66-1.25) mg/dL Est GFR (CKD-EPI)AfAm >90 (>60 ml/min/1.73 sqM) Est GFR (CKD-EPI)NonAf >90 (>60 ml/min/1.73 sqM) Glucose 105 H (74-99) mg/dL Calcium 9.1 (8.4-10.2) mg/dL Total Bilirubin 0.4 (0.2-1.3) mg/dL AST 23 (17-59) U/L ALT 12 (4-49) U/L Alkaline Phosphatase 55 (38-126) U/L Troponin I 0.025 (0.000-0.034) ng/mL NT-Pro-B Natriuret Pep 7700 pg/mL Total Protein 6.1 L (6.3-8.2) g/dL Albumin 3.6 (3.5-5.0) g/dL Lipase 149 (23-300) U/L Blood Type Blood Type Recheck Bld Type Recheck Status Antibody Screen Crossmatch Spec Expiration Date Disposition Clinical Impression: Acute non-ST elevation myocardial infarction (NSTEMI) Disposition: ADMITTED IP TO THIS HOSP Condition: Stable
--- NOTE | 2025-01-11 08:45 | XR ---
EXAMINATION TYPE: XR chest 1V portable DATE OF EXAM: 01/11/2025 COMPARISON: Chest x-ray November 14, 2024 CLINICAL INDICATION: Male, 74 years old with history of chest pain; TECHNIQUE: Single frontal view of the chest is obtained. FINDINGS: Overlying broken sternal wires and mediastinal clips are redemonstrated. There is chronic p arenchymal change bilaterally greatest in the bases without suspicious new focal air space opacity, pleural effusion, or pneumothorax seen. The cardiac silhouette size is mildly enlarged. The osseou s structures are intact. IMPRESSION: Chronic changes and mild cardiomegaly without new acute pulmonary process. [facility], , 01/11/2025 8:43 AM
[2025-01-11] MEDS: HEPARIN SODIUM 1,000 UN/ML (10ML VL) IV ONE (08:46)
[2025-01-11 08:53] LABS: Basophils # (A) 0.02 10*3/uL (0.00-0.10); Basophils % (A) 0.3 %; Eosinophils # (A) 0.07 10*3/uL (0.04-0.35); Eosinophils % (A) 1.2 %; Lymphocytes % (A) 5.2 %; MCH 24.1 pg (27.0-32.0); MCHC 29.8 g/dL (32.0-37.0); MCV 80.9 fL (80.0-97.0); Monocytes # (A) 0.62 10*3/uL (0.20-1.00); Monocytes % (A) 10.8 %; Neutrophils # (A) 4.72 10*3/uL (1.80-7.70); Platelet Count 330 10*3/uL (140-440); RBC 1.99 10*6/uL (4.40-5.60); RDW 16.7 % (11.5-14.5); WBC 5.76 10*3/uL (4.50-10.00)
[2025-01-11] MEDS: SODIUM CHLORIDE 0.9% 1,000 ML IV ONE (08:55)
[2025-01-11 08:56] LABS: HCT 16.1 % (39.6-50.0); HGB 4.8 g/dL (13.0-17.0)
[2025-01-11] MEDS: HEPARIN SODIUM,PORCINE 10,000 UNIT in SODIUM CHLORIDE 0.9% 1,000 ML IRRIGATION ONE (08:56)
[2025-01-11] MEDS: HEPARIN SODIUM,PORCINE (1 ML) 2,500 UNIT in SODIUM CHLORIDE 0.9% 250 ML IRRIGATION ONE (08:57)
[2025-01-11] MEDS: MIDAZOLAM 2 MG/2 ML VIAL IVP ONE (09:04)
[2025-01-11] MEDS: LIDOCAINE 1% INJ 10MG/ML (20 ML MDV) SQ ONE (09:05)
[2025-01-11] MEDS: fentaNYL (PF) 50 MCG/ML 2 ML AMP IVP ONE (09:06)
[2025-01-11] MEDS: VERAPAMIL SYRINGE (5 MG/10 ML) INTRAARTER ONE (09:07)
[2025-01-11 09:17] LABS: INR 1.1 (<1.2); Partial Thromboplastin Time 21.5 sec (22.0-30.0); Prothrombin Time 11.8 sec (10.0-12.5)
[2025-01-11 09:20] LABS: ALT 12 U/L (4-49); AST 23 U/L (17-59); African American GFR (CKD) >90 (>60 ml/min/1.73 sqM); Albumin 3.6 g/dL (3.5-5.0); Alkaline Phosphatase 55 U/L (38-126); Anion Gap 8 mmol/L; Blood Urea Nitrogen 20 mg/dL (9-20); Calcium 9.1 mg/dL (8.4-10.2); Carbon Dioxide 25 mmol/L (22-30); Chloride 96 mmol/L (98-107); Glucose 105 mg/dL (74-99); Lipase 149 U/L (23-300); Non-African American GFR(CKD) >90 (>60 ml/min/1.73 sqM); Potassium 4.6 mmol/L (3.5-5.1); Sodium 129 mmol/L (137-145); Total Bilirubin 0.4 mg/dL (0.2-1.3); Total Protein 6.1 g/dL (6.3-8.2)
[2025-01-11 09:29] LABS: NT-Pro-B-Type Natriuretic Pept 7700 pg/mL
[2025-01-11] MEDS: IOPAMIDOL-370 100ML BTL INJ ONE (09:31)
[2025-01-11 09:56] LABS: Glucose,Whole Blood 118 mg/dL (70-110)
--- NOTE | 2025-01-11 09:58 | P.CRDCN ---
History of Present Illness History of present illness: HISTORY OF PRESENT ILLNESS: This is a 74-year-old male with a past medical history significant for coronary artery disease with previous CABG, peripheral arterial disease, left BKA, ische faith cardiomyopathy, valvular heart disease, hypertension, hyperlipidemia, congestive heart failure, nicotine dependence, chronic alcohol use, and chronic anemia requiring frequent transfusions. Patient follows in the office with Dr. Hoffman. We have been asked to see the patient in consultation for STEMI. Patient examined at the bedside in the emergency room. Patient presented to the hospital with a chief complaint of chest pain. EKG was completed revealing ST elevation inferiorly. At the time of examination, the patient states his chest pain has resolved. He denies any shortness of breath. The patient was found to be anemic with a hemoglobin of 4.8. The patient does have a history of chronic anemia requiring frequent blood transfusions. He denies any signs of GI bleeding. REVIEW OF SYSTEMS: At the time of my exam: CONSTITUTIONAL: Denies fever or chills. HEENT: Denies blurred vision, vision changes, or eye pain. Denies hemoptysis CARDIOVASCULAR: Denies chest pain. Denies orthopnea. Denies PND. Denies palpitations RESPIRATORY: Denies shortness of breath. GASTROINTESTINAL: Denies abdominal pain. Denies nausea or vomiting. HEMATOLOGIC: Denies bleeding disorders. GENITOURINARY: Denies any blood in urine. SKIN: Denies pruitis. Denies rash. PHYSICAL EXAM: VITAL SIGNS: Reviewed. GENERAL: Well-developed in no acute distress. HEENT: Head is normocephalic. Pupils are equal, round. Sclerae anicteric. Mucous membranes of the mouth are moist. Neck supple. No JVD or thyromegaly LUNGS: Respirations even and unlabored. Lungs essentially clear to auscultation bilaterally. HEART: Regular rate and rhythm. S1 and S2 heard. ABDOMEN: Soft. Nondistended. Nontender. EXTREMITIES: Normal range of motion. No clubbing or cyanosis. Peripheral pulses intact. No lower extremity edema NEUROLOGIC: Awake and alert. Oriented x 3. ASSESSMENT: Inferior STEMI Chronic anemia of unclear etiology requiring frequent blood transfusions maintained on antiplatelet and anticoagulation on an outpatient basis Coronary artery disease with previous three-vessel CABG, 2016, ARRIAZA to LAD, VG to PDA, VGOM1 Ischemic cardiomyopathy ejection fraction 35 to 40% Valvular heart disease including trace TR, mild MR, and moderate aortic stenosis and regurgitation Chronic heart failure with reduced EF, currently euvolemic History of peripheral arterial disease with left BKA History of percutaneous endovascular aortic repair and balloon angioplasty of left common iliac and external iliac artery, September 2023 Hypertension Hyperlipidemia Right solid renal neoplasm per CT 2023, 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 The patient is chest pain-free at the time of examination. Patient does have a history of chronic anemia with hemoglobins ranging between 57. Patient states that the etiology of his anemia is unclear. Patient's medication list has not been verified however most recent medication list states that the patient has been taking Plavix and low-dose Xarelto on an outpatient basis. Based on patient's chronic anemia with no signs of acute bleeding, decision was made to proceed with cardiac catheterization. Patient is agreeable. Patient transported to the cardiac [facility] in stable condition. Further recommendations pending patient course. Nurse practitioner note has been reviewed by physician. Signing provider agrees with the documented findings, assessment, and plan of care documented by TYRE RETREADER as a scribe. Past Medical History Past Medical History: Coronary Artery Disease (CAD), Heart Failure, Hyperlipidemia, Hypertension, Vascular Disorder Additional Past Medical History / Comment(s): aortic aneusrym repair, herniated disc, peripheral vascular disease, anemia Last Myocardial Infarction Date:: 02/2023 History of Any Multi-Drug Resistant Organisms: None Reported Past Surgical History: Appendectomy, Coronary Bypass/CABG, Orthopedic Surgery Additional Past Surgical History / Comment(s): Right rotater cuff repair, L first and second toe removal. LBKA Past Anesthesia/Blood Transfusion Reactions: No Reported Reaction Past Psychological History: No Psychological Hx Reported Smoking Status: Current every day smoker Past Alcohol Use History: Occasional Past Drug Use History: Marijuana - Past Family History Father Family Medical History: Coronary Artery Disease (CAD) Additional Family Medical History / Comment(s): triple bypass Mother Family Medical History: Coronary Artery Disease (CAD), Dementia Medications and Allergies Home Medications Medication Instructions Recorded Confirmed Type Loratadine [Claritin] 10 mg PO DAILY 09/08/20 12/25/24 History Atorvastatin [Lipitor] 80 mg PO DAILY 09/20/23 12/25/24 History Folic Acid 1 mg PO DAILY tab 09/25/23 12/25/24 Rx Furosemide [Lasix] 40 mg PO DAILY #30 tablet 09/25/23 12/25/24 Rx Thiamine [Vitamin B-1] 100 mg PO DAILY tab 09/25/23 12/25/24 Rx polyethylene glycoL 3350 [Miralax] 17 gm PO DAILY 10/05/23 12/25/24 History Multivitamins, Thera [Multivitamin 1 tab PO DAILY 10/10/23 12/25/24 History (formulary)] carvediloL [Coreg] 6.25 mg PO DAILY 10/10/23 12/25/24 History Clopidogrel [Plavix] 75 mg PO DAILY 06/25/24 12/25/24 History Omeprazole 20 mg PO DAILY 06/25/24 12/25/24 History Rivaroxaban [Xarelto] 2.5 mg PO BID #60 tab 07/04/24 12/25/24 Rx HYDROcodone/APAP 5-325MG [[place] 1 tab PO Q6HR PRN 07/25/24 12/25/24 History 5-325] Ferrous Sulfate [Iron (65 MG 325 mg PO DAILY 11/14/24 12/25/24 History Elemental)] Magnesium Oxide [Mag-Ox] 500 mg PO DAILY 11/14/24 12/25/24 History Silver Sulfadiazine [Silver 1 applic TOPICAL BID 11/14/24 12/25/24 History Sulfadiazine 1%] Spironolactone [Aldactone] 25 mg PO DAILY 11/14/24 12/25/24 History Gabapentin 600 mg PO TID PRN 12/25/24 12/25/24 History Allergies Allergy/AdvReac Type Severity Reaction Status Date / Time No Known Allergies Allergy Verified 01/11/25 08:18 Physical Exam Vitals: Vital Signs Temp Pulse Resp BP Pulse Ox 01/11/25 08:48 92 20 127/58 99 01/11/25 08:40 89 20 110/46 100 01/11/25 08:33 99 20 111/57 97 01/11/25 08:15 98.4 F 103 H 20 114/61 98 Intake and Output 01/10/25 01/11/25 01/11/25 22:59 06:59 14:59 Intake Total 302 Balance 302 Intake: IV 302 Other: Weight 65.771 kg Results 01/11/25 08:32 01/11/25 08:32 Cardiac Enzymes 01/11/25 01/11/25 Range/Units 08:32 08:32 AST 23 (17-59) U/L Troponin I 0.025 (0.000-0.034) ng/mL Coagulation 01/11/25 Range/Units 08:32 PT 11.8 (10.0-12.5) sec APTT 21.5 L (22.0-30.0) sec CBC 01/11/25 Range/Units 08:32 WBC 5.76 (4.50-10.00) 10*3/uL RBC 1.99 L (4.40-5.60) 10*6/uL Hgb 4.8 L* D (13.0-17.0) g/dL Hct 16.1 L* (39.6-50.0) % Plt Count 330 (140-440) 10*3/uL Comprehensive Metabolic Panel 01/11/25 Range/Units 08:32 Sodium 129 L (137-145) mmol/L Potassium 4.6 (3.5-5.1) mmol/L Chloride 96 L (98-107) mmol/L Carbon Dioxide 25 (22-30) mmol/L BUN 20 (9-20) mg/dL Creatinine 0.69 (0.66-1.25) mg/dL Glucose 105 H (74-99) mg/dL Calcium 9.1 (8.4-10.2) mg/dL AST 23 (17-59) U/L ALT 12 (4-49) U/L Alkaline Phosphatase 55 (38-126) U/L Total Protein 6.1 L (6.3-8.2) g/dL Albumin 3.6 (3.5-5.0) g/dL Current Medications Generic Name Dose Route Start Last Admin Trade Name Freq PRN Reason Stop Dose Admin Aspirin 325 mg 01/12/25 09:00 Aspirin 325 Mg Tab PO DAILY [facility] Heparin Sodium/Sodium Chloride 250 mls @ 7.893 mls/hr 01/11/25 08:45 25,000 unit/ Sodium Chloride IV .Q24H [facility] Protocol 12 UNITS/KG/HR Nitroglycerin 0.4 mg 01/11/25 08:28 Nitroglycerin Sl Tabs 0.4 Mg Tab SUBLINGUAL Q5M PRN Chest Pain Intake and Output 01/10/25 01/11/25 01/11/25 22:59 06:59 14:59 Intake Total 302 Balance 302 Intake: IV 302 Other: Weight 65.771 kg Patient Weight 01/12/25 06:59 Weight 65.771 kg 01/11/25 08:32 01/11/25 08:32
[2025-01-11] MEDS: HEPARIN SOD,PORK IN 0.45% NACL 25,000 UNIT in 0.45% NACL 1 250ML.BAG IV SCH (10:32)
--- NOTE | 2025-01-11 12:28 | P.CARDCATH ---
Description of Procedure: PROCEDURES PERFORMED: Bilateral coronary angiography, ultrasound guided arterial access, SVG to OM, SVG to PDA, ARRIAZA to LAD angiography INDICATION: Chest pain with transient ST elevations inferiorly CONSENT:I have discussed the risks, benefits and alternative therapies for the above-mentioned procedure and for both sedation/analgesia as well as necessary blood product administration, if indicated, as they pertain to this patient. The patient has indicated understanding and acceptance of the risks and procedures discussed. PROCEDURE: After the risks, benefits and alternatives of the above mentioned procedure explained in detail with the patient, informed consent was obtained. Patient has known anemia however has been on antiplatelets as well as Xarelto with hemoglobins in the 4-7 range and had been relatively asymptomatic. Initial EKG showing Q waves with ST elevations inferiorly and patient having active chest pain which she normally does not have even with severe anemia. Therefore decision made to perform angiograms to further assess. Patient was taken to the catheterization lab and prepped and draped in usual fashion. Ultrasound guidance was used to assess for arterial access. 1% lidocaine was used to anesthetize the left radial artery. A 6-Slovenian sheath was placed in the left radial artery using modified Seldinger technique and ultrasound guidance. Left coronary angiography was performed with a 5-Slovenian JL 4.0 catheter and right coronary angiography was performed with a 5-[place]oven[place] FR4 catheter in various views. ARRIAZA to LAD angiography was performed with a 5 [place] FR4 catheter. A multipurpose catheter was used to engage the SVG to OM as well as the SVG to PDA. The left radial sheath was removed and a TR band was placed with hemostasis achieved. The patient tolerated the procedure well. Patient was transported back to the post catheterization holding area in stable condition. Conscious Sedation: Patient was monitored under the direct supervision of myself for conscious sedation using Versed and fentanyl for a total duration of 34 minutes HEMODYNAMICS: Aorta: 118/72 SELECTIVE CORONARY ARTERIOGRAPHY: LEFT MAIN: The left main is a large caliber vessel which bifurcates into the LAD and circumflex. There is 70% stenosis. LEFT ANTERIOR DESCENDING CORONARY ARTERY: LAD is a large caliber vessel which wraps around to the apex. There is 100% mid LAD stenosis. LEFT CIRCUMFLEX CORONARY ARTERY: Left circumflex is a moderate caliber vessel with some competitive flow from the SVG with mid circumflex 60 to 70% stenosis.. RIGHT CORONARY ARTERY: The right coronary artery is a large caliber vessel which gives off a PDA and PLV branch and is the dominant vessel. There is 100% prox imal stenosis. SVG to OM1: SVG is widely patent. The anastomosis is at the superior portion of OM1 and back flows up the circumflex. The more distal part of the SVG anastomosis there appears to be a 80% stenosis however appears small caliber. SVG to PDA: Widely patent ARRIAZA to LAD: Widely patent FINAL IMPRESSION: 1. CAD as described above including left main 70% stenosis, 100% mid LAD stenos is, circumflex 60 to 70% stenosis, RCA 100% stenosis, distal superior branch of OM1 80% stenosis 2. Patent SVG to OM, SVG to PDA, ARRIAZA to LAD PLAN: 1. Aggressive risk factor modification per most recent ACC/AHA guidelines. 2. Patient with severe anemia and most of his symptoms felt related to anemia. There is small caliber OM1 stenosis after the anastomosis of SVG however felt more likely chronic. If continues to have angina despite addressing anemia may consider intervention of SVG to OM or intervention of osage circumflex or even left main. Patient currently chest pain-free however and continue with medical therapy.
--- NOTE | 2025-01-11 12:32 | P.CNPUL ---
History of Present Illness Consult date: 01/11/25 Requesting physician: Giulia Calderon ([facility] [address] [place] [address]) Reason for consult: chest pain Chief complaint: Chest pain History of present illness: This is a 74-year-old white male, known history of coronary artery disease, previous CABG, peripheral vessel occlusive disease and previous left below-knee amputation history of valvular heart disease, hypertension, congestive heart failure, nicotine dependence and chronic alcohol use. In addition to all of this the patient is known to have history of chronic iron deficiency anemia had extensive workup for his anemia over the last few years, and there was no clear- cut evidence of any GI bleeding according to the patient. He had multiple endoscopic procedures over the last few years, and they were basically nondiagnostic for GI blood losses. Patient requires blood transfusions almost on a regular basis. This time the patient presented to the ER with chest pain, he also felt short of breath, and lightheaded. His hemoglobin on admission was noted to be 4.8., EKG showed inferior ST elevation, hence cardiology was consulted and the patient was taken straight cardiac cath for possible ST elevation myocardial infarction. Patient was found to have no evidence of significant occlusive coronary artery disease, hence she was transferred out of the [facility] back to ICU for further evaluation of his anemia. During my evaluation, I recommended that we continue blood transfusion at least 2 units of packed RBCs, check hemoglobin and if above 7 patient could go to cardiac floor and possibly work on discharging the patient home in the next 24 hours. Patient will definitely need outpatient follow-up regarding his anemia, patient has been seen by hematology/oncology and he has been seen by Dr. Ramon/hebrew cantor in the past. Chest x-ray on this admission showed cardiomegaly, chronic changes, no acute process was noted. Review of Systems CONSTITUTIONAL: Generalized weakness fatigue HEENT: Denies blurred vision, vision changes, or eye pain. Denies hemoptysis CARDIOVASCULAR: As noted HPI RESPIRATORY: Minimal dyspnea on exertion GASTROINTESTINAL: Denies any melena or hematemesis, denies any black stools no abdominal pain no nausea or vomiting HEMATOLOGIC: History of chronic anemia/iron deficiency anemia with negative workup GENITOURINARY: Negative SKIN: Negative Psychiatric: No symptoms of active depression Neurologic: No headache blurred vision or dizziness Past Medical History Past Medical History: Coronary Artery Disease (CAD), Heart Failure, Hype rlipidemia, Hypertension, Myocardial Infarction (SD), Vascular Disorder Additional Past Medical History / Comment(s): herniated disc, peripheral vascular disease multiple angio's, anemia with frequent infusions Last Myocardial Infarction Date:: 2022 History of Any Multi-Drug Resistant Organisms: None Reported Past Surgical History: Appendectomy, Coronary Bypass/CABG, Orthopedic Surgery Additional Past Surgical History / Comment(s): Right rotater cuff repair, L first and second toe removal. AAA repair. Right fem/tib bypass. LBKA Past Anesthesia/Blood Transfusion Reactions: No Reported Reaction Smoking Status: Current some day smoker - Past Family History Father Family Medical History: Coronary Artery Disease (CAD) Additional Family Medical History / Comment(s): triple bypass Mother Family Medical History: Coronary Artery Disease (CAD), Dementia Medications and Allergies Home Medications Medication Instructions Recorded Confirmed Type Loratadine [Claritin] 10 mg PO DAILY 09/08/20 01/11/25 History Atorvastatin [Lipitor] 80 mg PO DAILY 09/20/23 01/11/25 History Folic Acid 1 mg PO DAILY tab 09/25/23 01/11/25 Rx Furosemide [Lasix] 40 mg PO DAILY #30 tablet 09/25/23 01/11/25 Rx Thiamine [Vitamin B-1] 100 mg PO DAILY tab 09/25/23 01/11/25 Rx polyethylene glycoL 3350 [Miralax] 17 gm PO DAILY 10/05/23 01/11/25 History Multivitamins, Thera [Multivitamin 1 tab PO DAILY 10/10/23 01/11/25 History (formulary)] carvediloL [Coreg] 6.25 mg PO DAILY 10/10/23 01/11/25 History Clopidogrel [Plavix] 75 mg PO DAILY 06/25/24 01/11/25 History Omeprazole 20 mg PO DAILY 06/25/24 01/11/25 History Rivaroxaban [Xarelto] 2.5 mg PO BID #60 tab 07/04/24 01/11/25 Rx HYDROcodone/APAP 5-325MG [[place] 1 tab PO Q6HR PRN 07/25/24 01/11/25 History 5-325] Ferrous Sulfate [Iron (65 MG 325 mg PO DAILY 11/14/24 01/11/25 History Elemental)] Magnesium Oxide [Mag-Ox] 500 mg PO DAILY 11/14/24 01/11/25 History Silver Sulfadiazine [Silver 1 applic TOPICAL BID 11/14/24 01/11/25 History Sulfadiazine 1%] Spironolactone [Aldactone] 25 mg PO DAILY 11/14/24 01/11/25 History Gabapentin 600 mg PO TID PRN 12/25/24 01/11/25 History Allergies Allergy/AdvReac Type Severity Reaction Status Date / Time No Known Allergies Allergy Verified 01/11/25 08:18 Physical Exam Vitals: Vital Signs Temp Pulse Resp BP Pulse Ox 01/11/25 11:15 81 15 114/58 100 01/11/25 11:00 82 17 116/56 100 01/11/25 10:54 98.0 F 84 15 114/58 100 01/11/25 10:45 84 12 120/57 100 01/11/25 10:34 97.8 F 86 15 120/57 100 01/11/25 10:30 93 20 111/64 100 01/11/25 10:24 98.0 F 88 14 111/64 01/11/25 10:15 95 10 L 105/54 100 01/11/25 10:00 103 H 16 107/64 100 01/11/25 09:55 43 H 01/11/25 08:48 92 20 127/58 99 01/11/25 08:40 89 20 110/46 100 01/11/25 08:33 99 20 111/57 97 01/11/25 08:15 98.4 F 103 H 20 114/61 98 Intake and Output 01/10/25 01/11/25 01/11/25 22:59 06:59 14:59 Intake Total 302 Balance 302 Intake: IV 302 Blood Product 0 Unit 0 Other: Weight 65.771 kg GENERAL: Revealed 74-year-old white male in no distress, patient looks pale Head: Atraumatic, normocephalic HEENT: Head is normocephalic. Pupils are equal, round. Sclerae pale, anicteric. Mucous membranes of the mouth are dry. Neck supple. No JVD or thyromegaly LUNGS: Respirations even and unlabored. Lungs essentially clear to auscultation bilaterally. HEART: Regular rate and rhythm. S1 and S2 heard. ABDOMEN: Soft. Nondistended. Nontender. No rebound no guarding, positive bowel sounds. EXTREMITIES: Normal range of motion. No clubbing or cyanosis. Left below-knee amputation is noted NEUROLOGIC: Awake and alert. Oriented x 3. No gross focal neurologic deficit Psychiatric: Normal mood and affect and no mental status examination Skin: No rashes Results - Laboratory Findings CBC and BMP: 01/11/25 08:32 01/11/25 08:32 PT/INR, D-dimer PT 11.8 sec (10.0-12.5) 01/11/25 08:32 INR 1.1 (<1.2) 01/11/25 08:32 Abnormal lab findings: Abnormal Labs 01/11/25 01/11/25 01/11/25 08:20 08:32 08:32 RBC 1.99 L Hgb 4.8 L* D Hct 16.1 L* MCH 24.1 L MCHC 29.8 L MPV 9.0 L Lymphocytes # 0.30 L APTT 21.5 L Sodium Chloride Glucose POC Glucose (mg/dL) Total Protein Crossmatch See Detail 01/11/25 01/11/25 08:32 09:54 RBC Hgb Hct MCH MCHC MPV Lymphocytes # APTT Sodium 129 L Chloride 96 L Glucose 105 H POC Glucose (mg/dL) 118 H Total Protein 6.1 L Crossmatch - Diagnostic Findings Chest x-ray: image reviewed (As noted in HPI) Assessment and Plan Assessment: Impression: Profound anemia with acute coronary syndrome/angina secondary to severe anemia Chronic iron deficiency anemia, extensive previous workup has been nondiagnostic for GI blood losses History of coronary artery disease and previous three-vessel CABG History of valvular heart disease and ischemic cardiomyopathy ejection fraction 35 to 40% and history of moderate aortic stenosis with regurgitation History of peripheral vessel occlusive disease and previous BKA left History of percutaneous endovascular aortic repair and balloon angioplasty of left common iliac external iliac Benign essential hypertension Dyslipidemia Renal mass suspicious for renal cell carcinoma being monitored by oncology on outpatient basis. Recommendation: Transfuse patient to a hemoglobin of 7 Transfer patient to cardiac floor after transfusion. Resume home meds, including statin aspirin and patient to go back on his usual dose of low-dose Xarelto and Plavix. His GI workup for anemia could be done again on outpatient basis, this is a chronic issue and has been addressed many times on outpatient basis. Will continue to follow Time with Patient: Greater than 30
[2025-01-11] MEDS: HYDROcodone/APAP 5-325MG 1 EACH TAB PO PRN (16:15)
[2025-01-11 18:58] LABS: HCT 22.6 % (39.6-50.0); MCH 26.9 pg (27.0-32.0); MCHC 32.3 g/dL (32.0-37.0); MCV 83.4 fL (80.0-97.0); Platelet Count 304 10*3/uL (140-440); RBC 2.71 10*6/uL (4.40-5.60); RDW 15.9 % (11.5-14.5); WBC 7.54 10*3/uL (4.50-10.00)
[2025-01-11 19:00] LABS: HGB 7.3 g/dL (13.0-17.0)
[2025-01-11] MEDS: GABAPENTIN 300 MG CAP PO PRN (22:56)
[2025-01-12 05:43] LABS: Basophils # (A) 0.06 10*3/uL (0.00-0.10); Basophils % (A) 0.8 %; Eosinophils # (A) 0.13 10*3/uL (0.04-0.35); Eosinophils % (A) 1.8 %; HCT 22.4 % (39.6-50.0); HGB 7.2 g/dL (13.0-17.0); Lymphocytes # (A) 0.41 10*3/uL (0.90-5.00); Lymphocytes % (A) 5.6 %; MCH 26.9 pg (27.0-32.0); MCHC 32.1 g/dL (32.0-37.0); MCV 83.6 fL (80.0-97.0); Mean Platelet Volume 8.9 fL (9.5-12.2); Monocytes # (A) 1.09 10*3/uL (0.20-1.00); Monocytes % (A) 14.9 %; Neutrophils % (A) 76.5 %; Platelet Count 294 10*3/uL (140-440); RBC 2.68 10*6/uL (4.40-5.60); RDW 16.2 % (11.5-14.5); WBC 7.32 10*3/uL (4.50-10.00)
[2025-01-12 06:01] LABS: African American GFR (CKD) >90 (>60 ml/min/1.73 sqM); Anion Gap 4 mmol/L; Blood Urea Nitrogen 16 mg/dL (9-20); Carbon Dioxide 27 mmol/L (22-30); Chloride 102 mmol/L (98-107); Glucose 85 mg/dL (74-99); Non-African American GFR(CKD) >90 (>60 ml/min/1.73 sqM); Potassium 3.8 mmol/L (3.5-5.1); Sodium 133 mmol/L (137-145)
[2025-01-12] MEDS: PANTOPRAZOLE 40 MG TABLET PO SCH (06:55)
[2025-01-12 08:27] LABS: Chol/HDL Ratio 1.95 Ratio
[2025-01-12] MEDS: MULTIVITAMINS, THERA 1 EACH TAB PO SCH (09:11)
[2025-01-12] MEDS: ASPIRIN 325 MG TAB PO SCH (09:11)
[2025-01-12] MEDS: polyethylene glycoL 3350 17 GM POWD.PACK PO SCH (09:11)
[2025-01-12] MEDS: CLOPIDOGREL 75 MG TAB PO SCH (09:12)
[2025-01-12] MEDS: MAGNESIUM OXIDE 400 MG TAB PO SCH (09:12)
[2025-01-12] MEDS: FOLIC ACID 1 MG TAB PO SCH (09:12)
[2025-01-12] MEDS: THIAMINE 100 MG TAB PO SCH (09:12)
[2025-01-12] MEDS: FERROUS SULFATE 325 MG TAB PO SCH (09:12)
[2025-01-12] MEDS: LORATADINE 10 MG TAB PO SCH (09:12)
[2025-01-12] MEDS: carvediloL 6.25 MG TAB PO SCH (09:12)
[2025-01-12] MEDS: ATORVASTATIN 80 MG TAB PO SCH (09:12)
[2025-01-12 11:05] VITALS: RESP 16; TEMP 97.7
--- NOTE | 2025-01-12 12:06 | P.PN ---
Subjective Progress Note Date: 01/12/25 Principal diagnosis: Chest pain. This is a 74-year-old white male, known history of coronary artery disease, previous CABG, peripheral vessel occlusive disease and previous left below-knee amputation history of valvular heart disease, hypertension, congestive heart failure, nicotine dependence and chronic alcohol use. In addition to all of this the patient is known to have history of chronic iron deficiency anemia had extensive workup for his anemia over the last few years, and there was no clear- cut evidence of any GI bleeding according to the patient. He had multiple e ndoscopic procedures over the last few years, and they were basically nondiagnostic for GI blood losses. Patient requires blood transfusions almost on a regular basis. This time the patient presented to the ER with chest pain, he also felt short of breath, and lightheaded. His hemoglobin on admission was noted to be 4.8., EKG showed inferior ST elevation, hence cardiology was consulted and the patient was taken straight cardiac cath for possible ST elevation myocardial infarction. Patient was found to have no evidence of significant occlusive coronary artery disease, hence she was transferred out of the [facility] back to ICU for further evaluation of his anemia. During my evaluation, I recommended that we continue blood transfusion at least 2 units of packed RBCs, check hemoglobin and if above 7 patient could go to cardiac floor and possibly work on discharging the patient home in the next 24 hours. Patient will definitely need outpatient follow-up regarding his anemia, patient has been seen by hematology/oncology and he has been seen by Dr. Ramon/business transformation manager in the past. Chest x-ray on this admission showed cardiomegaly, chronic changes, no acute process was noted. Progress note dated January 12, 2025. 74-year-old male seen today in room 261. He was admitted to the hospital on January [address] segment elevation myocardial infarction. He went to the catheterization laboratory, but there was no significant disease, and the patient did not have a procedure such as stenting. He was noted to have a hemoglobin of 4.8, which is not a new thing. He did receive 2 units of blood. He is currently on room air. Is not receiving any IV fluids. The patient is scheduled have an echocardiogram. He does follow with one of the scientific manager, for his anemia. He has also had an EGD and colonoscopy with the business transformation manager, and nothing was found. White count 7.32, hemoglobin 7.2, hematocrit 22.4, platelet count 2 94,000. Sodium 133, potassium 3.8, chlorides 102, CO2 27, BUN 16, and creatinine 0.59. The patient's N-terminal proBNP was 7700. The most recent troponin was 0.663. Objective - Vital Signs Vital signs: Vital Signs Temp 97.7 F 01/12/25 10:30 Pulse 83 01/12/25 10:30 Resp 16 01/12/25 10:30 BP 155/74 01/12/25 10:30 Pulse Ox 97 01/12/25 10:30 FiO2 Intake & Output 01/11/25 01/12/25 01/12/25 18:59 06:59 18:59 Intake Total 1536 400 Output Total 800 600 150 Balance 736 -200 -150 Weight 65.771 kg 62.9 kg Intake: IV 302 Oral 640 400 Blood Product 594 Rc As-1 Unit 310 [id number] Rc Pheresis 2 As3 Unit 284 [id number] Output: Urine 800 600 150 Other: Voiding Method Urinal Urinal Urinal - Exam No acute distress, oriented 3. The patient is pale appearing. HEENT examination is grossly unremarkable. Mucous membranes are moist. No oral lesions. Neck supple. Full range of motion. No adenopathy thyromegaly or neck vein distention. Cardiovascular examination reveals regular rhythm rate. S1-S2 normal. No S3 or S4. No discernible murmur noted. Lungs reveal clear breath sounds. Breath sounds are equal bilaterally. No adventitious lung sounds including wheezes rhonchi or crackles. Abdomen soft bowel sounds are heard. No masses or tenderness. Extremities are intact. No cyanosis clubbing or edema. Skin is without rash or lesion. Neurologic examination is brief but nonfocal. - Labs CBC & Chem 7: 01/12/25 05:23 01/12/25 05:23 Labs: Abnormal Lab Results - Last 24 Hours (Table) 01/11/25 01/11/25 01/11/25 Range/Units 08:20 18:19 18:19 RBC 2.71 L (4.40-5.60) 10*6/uL Hgb 7.3 L D (13.0-17.0) g/dL Hct 22.6 L (39.6-50.0) % MCH 26.9 L (27.0-32.0) pg MPV 9.0 L (9.5-12.2) fL Lymphocytes # (0.90-5.00) 10*3/uL Monocytes # (0.20-1.00) 10*3/uL Sodium (137-145) mmol/L Creatinine (0.66-1.25) mg/dL Troponin I 0.663 H* (0.000-0.034) ng/mL Crossmatch See Detail 01/12/25 01/12/25 Range/Units 05:23 05:23 RBC 2.68 L (4.40-5.60) 10*6/uL Hgb 7.2 L (13.0-17.0) g/dL Hct 22.4 L (39.6-50.0) % MCH 26.9 L (27.0-32.0) pg MPV 8.9 L (9.5-12.2) fL Lymphocytes # 0.41 L (0.90-5.00) 10*3/uL Monocytes # 1.09 H (0.20-1.00) 10*3/uL Sodium 133 L (137-145) mmol/L Creatinine 0.59 L (0.66-1.25) mg/dL Troponin I (0.000-0.034) ng/mL Crossmatch Assessment and Plan Assessment: Suspected ST segment elevation myocardial infarction, S/P cardiac catheterization, without intervention. Chronic anemia, of unclear etiology, with negative EGD/colonoscopy. History of coronary artery disease, with previous three-vessel CABG. Valvular heart disease, and ischemic cardiomyopathy with an ejection fraction of 35 to 40%. Moderate aortic stenosis with regurgitation. Peripheral vascular occlusive disease. Left below the knee amputation. History of percutaneous endovascular aortic repair and balloon angioplasty. Benign essential hypertension. Hyperlipidemia. 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 Plan: Plan dated January 12, 2025. The patient did receive 2 units of packed red blood cells. Hemoglobin was up to 7.2. The patient does look pale, but is not having any chest pain or chest discomfort. The patient is scheduled to have an echocardiogram. He has also had an EGD and colonoscopy, with GI, and nothing was found. He has seen hematology in the past, and does have an appointment with them on [address]. Will place a consult on this patient, for hematology, so that may be can avoid the appointment on Sunday. Labs, x-rays, and medications are reviewed. The patient is stable. We will continue to follow. Prognosis is guarded. Dictation was produced using [employer] software. Please excuse any grammatical, word or spelling errors. Time with Patient: Less than 30
[2025-01-12 12:31] VITALS: BP 156/73; PULSE 79
--- NOTE | 2025-01-12 15:11 | P.CONS ---
History of Present Illness - History of Present Illness Mr. Garcia is a 73-year-old gentleman with a past medical history significant for coronary artery disease status post three-vessel CABG in 2018, peripheral arterial disease, ischemic cardiomyopathy (EF 35 to 40%), hypertension, hyperlipidemia who presents for evaluation of renal mass. He was initially seen in consultation at [facility] on 10/12/2023 after developing GI bleeding. He underwent percutaneous endovascular aortic repair with balloon angioplasty of the left common iliac and external iliac arteries on 10/05/2023 and was subsequently placed on aspirin and Plavix. He then presented to [facility] on 10/10/2023 with bright red blood per rectum with hemoglobin 5.9 and required 2 units of packed red blood cells. Iron studies on 10/10/2023 were consistent with iron deficiency with ferritin of 36.4 and iron saturation of 7.42%. IV iron was not given at that time. Aspirin and Plavix were subsequently stopped. He underwent EGD with colonoscopy on 10/12/2023. Upper endoscopy revealed mild antral gastritis and small hiatal hernia with a short segment of Gonzalez's esophagus. There was a 3 cm ulceration that was superficial consistent with solitary rectal ulcer syndrome with scattered sigmoid diverticulosis and small internal hemorrhoids on colonoscopy. Pathology revealed fibrinopurulent debris and focal granulation tissue. Of note, he did have CT angio abdomen and pelvis on 10/10/2023, which noted right solid neoplasm measuring 2.5 cm with no evidence of active bleeding. After resolution of his bleeding, aspirin was restarted, but Plavix remain held and was discharged on 10/13/2023. Following discharge, unfortunately he developed progressive pain in the left foot with evidence of dry gangrene with Citrobacter brachii and alcaligen faecalis infection requiring IV antibiotics. He did have repeat angiogram of the left leg on 10/29/2023 noting superficial femoral artery occlusion with reconstitution below the knee tibioperoneal trunk with questionable two-vessel runoff to the ankle. He was noted to need below the knee bypass followed by below the knee amputation, which is being planned for 11/17/2023. He was discharged on 10/30/2023 currently on Zosyn at home every 8 hours. Currently, he noted having pain on ambulation in the left foot. He is able to ambulate short distances with the assistance of a cane or walker. He denies any flank pain, hematuria, or dysuria. He denies any constitutional symptoms. He notes smoking a pack of cigarettes a day since his early 20s, but notes he is now reducing his smoking down to 3 to 5 cigarettes a day. He denies any family history of malignancy. Prior to his hospitalization in September 2023, he was active and independent at home without assistance. He was able to do hunting a nd fishing trips with no issues. Review of Systems 10 point review of systems is negative Past Medical History Past Medical History: Coronary Artery Disease (CAD), Heart Failure, Hyperlipidemia, Hypertension, Myocardial Infarction (IA), Vascular Disorder Additional Past Medical History / Comment(s): herniated disc, peripheral vascular disease multiple angio's, anemia with frequent infusions Last Myocardial Infarction Date:: 2022 History of Any Multi-Drug Resistant Organisms: None Reported Past Surgical History: Appendectomy, Coronary Bypass/CABG, Orthopedic Surgery Additional Past Surgical History / Comment(s): Right rotater cuff repair, L first and second toe removal. AAA repair. Right fem/tib bypass. [facility] Past Anesthesia/Blood Transfusion Reactions: No Reported Reaction Smoking Status: Current some day smoker - Past Family History Father Family Medical History: Coronary Artery Disease (CAD) Additional Family Medical History / Comment(s): triple bypass Mother Family Medical History: Coronary Artery Disease (CAD), Dementia Medications and Allergies Home Medications Medication Instructions Recorded Confirmed Type Loratadine [Claritin] 10 mg PO DAILY 09/08/20 01/11/25 History Atorvastatin [Lipitor] 80 mg PO DAILY 09/20/23 01/11/25 History Folic Acid 1 mg PO DAILY tab 09/25/23 01/11/25 Rx Furosemide [Lasix] 40 mg PO DAILY #30 tablet 09/25/23 01/11/25 Rx Thiamine [Vitamin B-1] 100 mg PO DAILY tab 09/25/23 01/11/25 Rx polyethylene glycoL 3350 [Miralax] 17 gm PO DAILY 10/05/23 01/11/25 History Multivitamins, Thera [Multivitamin 1 tab PO DAILY 10/10/23 01/11/25 History (formulary)] carvediloL [Coreg] 6.25 mg PO DAILY 10/10/23 01/11/25 History Clopidogrel [Plavix] 75 mg PO DAILY 06/25/24 01/11/25 History Omeprazole 20 mg PO DAILY 06/25/24 01/11/25 History HYDROcodone/APAP 5-325MG [[place] 1 tab PO Q6HR PRN 07/25/24 01/11/25 History 5-325] Ferrous Sulfate [Iron (65 MG 325 mg PO DAILY 11/14/24 01/11/25 History Elemental)] Magnesium Oxide [Mag-Ox] 500 mg PO DAILY 11/14/24 01/11/25 History Silver Sulfadiazine [Silver 1 applic TOPICAL BID 11/14/24 01/11/25 History Sulfadiazine 1%] Spironolactone [Aldactone] 25 mg PO DAILY 11/14/24 01/11/25 History Gabapentin 600 mg PO TID PRN 12/25/24 01/11/25 History Aspirin 81 mg PO DAILY #30 tab 01/12/25 Rx Nitroglycerin Sl Tabs [Nitrostat] 0.4 mg SUBLINGUAL Q5M PRN #30 tab 01/12/25 Rx Allergies Allergy/AdvReac Type Severity Reaction Status Date / Time No Known Allergies Allergy Verified 01/11/25 13:36 Physical Exam Vitals: Vital Signs Temp Pulse Pulse Resp BP BP Pulse Ox 01/12/25 08:00 98.2 F 90 20 115/67 96 01/12/25 07:46 94 L 01/12/25 04:00 78 15 135/62 91 L 01/12/25 02:00 74 12 140/68 93 L 01/12/25 00:00 78 13 137/74 94 L 01/11/25 22:00 92 20 135/70 86 L 01/11/25 20:00 76 13 124/58 94 L 01/11/25 19:02 79 15 124/58 95 01/11/25 19:00 75 14 124/57 94 L 01/11/25 18:00 80 15 122/65 94 L 01/11/25 17:00 93 15 116/71 95 01/11/25 16:46 98.2 F 80 14 116/71 95 01/11/25 16:30 78 14 121/52 95 01/11/25 16:00 91 16 121/58 97 01/11/25 15:30 81 18 108/53 97 01/11/25 15:00 78 14 115/62 98 01/11/25 14:30 92 15 109/59 98 01/11/25 14:11 85 15 109/59 98 01/11/25 14:00 88 16 107/53 97 01/11/25 13:51 98.0 F 84 16 107/53 97 01/11/25 13:42 98.1 F 84 15 106/43 100 01/11/25 13:39 98.1 F 84 15 106/43 100 01/11/25 13:30 98.1 F 86 16 108/50 100 01/11/25 13:00 95 15 115/79 100 01/11/25 12:51 98.2 F 93 16 115/79 100 01/11/25 12:30 98.0 F 92 11 L 126/58 100 01/11/25 12:00 90 14 120/61 92 L 01/11/25 11:30 101 H 8 L 120/61 100 01/11/25 11:15 81 15 114/58 100 01/11/25 11:00 82 17 116/56 100 01/11/25 10:54 98.0 F 84 15 114/58 100 01/11/25 10:45 84 12 120/57 100 01/11/25 10:34 97.8 F 86 15 120/57 100 01/11/25 10:30 93 20 111/64 100 01/11/25 10:24 98.0 F 88 14 111/64 Intake and Output 01/11/25 01/12/25 01/12/25 22:59 06:59 14:59 Intake Total 750 200 Output Total 400 400 150 Balance 350 -200 -150 Intake: Oral 440 200 Blood Product 310 Rc As-1 Unit 310 [id number] Output: Urine 400 400 150 Other: Voiding Method Urinal Urinal Urinal Weight 62.9 kg - Constitutional General appearance: average body habitus, cooperative, no acute distress - EENT Eyes: anicteric sclerae, EOMI ENT: hearing grossly normal, normal oropharynx - Respiratory Respiratory: bilateral: CTA - Cardiovascular Rhythm: regular Heart sounds: normal: S1, S2 Abnormal Heart Sounds: no systolic murmur, no diastolic murmur, no rub, no S3 Gallop, no S4 Gallop, no click, no other leg Peripheral Edema: right: None - Gastrointestinal General gastrointestinal: normal bowel sounds, soft - Integumentary Integumentary: pale - Neurologic Neurologic: CNII-XII intact - Musculoskeletal Musculoskeletal: strength equal bilaterally - Psychiatric Psychiatric: A&O x's 3, appropriate affect, intact judgment & insight Results CBC & Chem 7: 01/12/25 05:23 01/12/25 05:23 Labs: Abnormal Lab Results - Last 24 Hours (Table) 01/11/25 01/11/25 01/11/25 Range/Units 08:20 18:19 18:19 RBC 2.71 L (4.40-5.60) 10*6/uL Hgb 7.3 L D (13.0-17.0) g/dL Hct 22.6 L (39.6-50.0) % MCH 26.9 L (27.0-32.0) pg MPV 9.0 L (9.5-12.2) fL Lymphocytes # (0.90-5.00) 10*3/uL Monocytes # (0.20-1.00) 10*3/uL Sodium (137-145) mmol/L Creatinine (0.66-1.25) mg/dL Troponin I 0.663 H* (0.000-0.034) ng/mL Crossmatch See Detail 01/12/25 01/12/25 Range/Units 05:23 05:23 RBC 2.68 L (4.40-5.60) 10*6/uL Hgb 7.2 L (13.0-17.0) g/dL Hct 22.4 L (39.6-50.0) % MCH 26.9 L (27.0-32.0) pg MPV 8.9 L (9.5-12.2) fL Lymphocytes # 0.41 L (0.90-5.00) 10*3/uL Monocytes # 1.09 H (0.20-1.00) 10*3/uL Sodium 133 L (137-145) mmol/L Creatinine 0.59 L (0.66-1.25) mg/dL Troponin I (0.000-0.034) ng/mL Crossmatch Assessment and Plan (1) Symptomatic anemia Current Visit: Yes Status: Acute Priority: Medium Code(s): D64.9 - ANEMIA, UNSPECIFIED SNOMED Code(s): 072251406 Plan: Symptomatic anemia - Woke up with chest pain, worse with movement. -Brought to the emergency department, hemoglobin 4.7. Status post 2 units PRBCs. No further symptoms - Cardiology has seen and performed workup including cardiac catheterization. Cardiology felt patient's symptoms most likely to be related to severe anemia. Plan to correct anemia acutely and if symptoms resolved, continue medical therapy. Patient has done well posttransfusion, continue medical therapy -Patient has been seen by Hematology in the outpatient setting for iron deficie ncy, B12 deficient anemia. He has been receiving B12 injections monthly. He has not received parenteral iron in quite some time. -Iron studies ordered on pretransfusion blood. -Patient has a follow-up appointment with Pocket And Pulley Machine Operator this Sunday, he will keep that appointment. Pending laboratory results, may order patient parenteral iron in the outpatient setting. - Patient is okay from a Hematology standpoint to be discharged once he has been cleared by Attending and other consulting Physicians. All of the above was discussed with patient. He agrees with the plan. In patient's chart it is documented that he is on Xarelto 2.5 mg daily. I do not have any documentation of the same in the office, the only anticoagulant/antiplatelet medication documented in our office chart is baby aspirin. Patient's pharmacy was contacted, it was reported by them a that the patient has not received a prescription for Xarelto since June 2024. Try to contact patient's daughter, mailbox is full unable to leave a message. Case was reviewed with Internal Medicine SCHEDULE HANGER, agree with continuing antiplatelet therapy for now. When patient sees Dr. Rodriguez on Sunday, we will clarify his medication list
--- NOTE | 2025-01-13 08:06 | CA ---
Transthoracic Echo Report Name: Temo Garcia Age: 74 Gender: M : 1950 Exam Date: 01/12/2025 10:59 Exam Location: [facility] Ht (in): 68 Wt (lb): 145 Ordering Physician: Nguyen Awad Attending/Referring Phys: [id number], [employer] Employee Placement Specialist Caridad Rock, [facility] Procedure CPT: Indications: LV function, STEMI Cardiac Hx: 2018 CABG Technical Quality: Fair Contrast 1: Definity Total Dose (mL): 2 Contrast 2: Total Dose (mL): MEASUREMENTS (Male / Female) Normal Values 2D ECHO LV Diastolic Diameter PLAX 5.2 cm 4.2 - 5.9 / 3.9 - 5.3 cm LV Systolic Diameter PLAX 3.3 cm IVS Diastolic Thickness 1.1 cm 0.6 - 1.0 / 0.6 - 0.9 cm LVPW Diastolic Thickness 1.0 cm 0.6 - 1.0 / 0.6 - 0.9 cm LV Relative Wall Thickness 0.4 RV Internal Dim ED PLAX 3.5 cm LVOT Diameter 2.1 cm LA Systolic Diameter LX 3.8 cm 3.0 - 4.0 / 2.7 - 3.8 cm LV Diastolic Volume MOD BP 135.0 cm??? 67 - 155 / 56 - 104 cm??? LV Systolic Volume MOD BP 99.4 cm??? 22 - 58 / 19 - 49 cm??? LV Ejection Fraction MOD BP 26.4 % >= 55 % LV Cardiac Index MOD BP 1404.2 cm???/min???m??? LV Diastolic Volume MOD 4C 127.9 cm??? LV Systolic Volume MOD 4C 78.4 cm??? LV Ejection Fraction MOD 4C 38.7 % LV Cardiac Index MOD 4C 1950.7 cm???/min???m??? LV Diastolic Length 4C 9.5 cm LV Systolic Length 4C 8.4 cm LV Diastolic Volume MOD 2C 128.3 cm??? LV Systolic Volume MOD 2C 108.6 cm??? LV Ejection Fraction MOD 2C 15.4 % LV Cardiac Index MOD 2C 776.2 cm???/min???m??? LV Diastolic Length 2C 9.1 cm LV Systolic Length 2C 8.7 cm LA Volume 103.0 cm??? 18 - 58 / 22 - 52 cm??? LA Volume Index 58.0 cm???/m??? 16 - 28 cm???/m??? M-MODE Aortic Root Diameter MM 2.9 cm AV Cusp Separation MM 1.2 cm DOPPLER AV Peak Velocity 316.2 cm/s AV Peak Gradient 40.0 mmHg AV Mean Velocity 226.8 cm/s AV Mean Gradient 22.9 mmHg AV Velocity Time Integral 84.3 cm AI Peak Velocity 250.8 cm/s AI Peak Gradient 25.2 mmHg AI Pressure Half Time 421.7 ms LVOT Peak Velocity 83.0 cm/s LVOT Peak Gradient 2.8 mmHg LVOT Velocity Time Integral 21.6 cm LVOT Stroke Volume 75.8 cm??? LVOT Stroke Volume Index 42.5 ml/m??? LVOT Cardiac Index 2986.1 cm???/min???m??? AV Area Cont Eq vti 0.9 cm??? AV Area Cont Eq pk 0.9 cm??? MV Area PHT 4.0 cm??? Mitral E Point Velocity 121.8 cm/s Mitral A Point Velocity 84.5 cm/s Mitral E to A Ratio 1.4 MV Deceleration Time 190.1 ms TR Peak Velocity 343.8 cm/s TR Peak Gradient 47.3 mmHg Right Ventricular Systolic Press 50.5 mmHg FINDINGS Left Ventricle Left ventricular ejection fraction is estimated at 25-30 %. Left ventricular cavity size normal. Mildly increased septal wall thickness. Severely decreased left ventricular systolic volume. Severely decreased left ventricular ejection fraction. Right Ventricle Mild right ventricular dilatation. Moderate pulmonary hypertension. Right Atrium Normal right atrial size. No right atrial thrombus or mass seen. Left Atrium Severely increased left atrial volume. Mildly increased left atrial area. No left atrial thrombus or mass present. Mitral Valve Mitral valve thickened. Mild mitral annular calcification. Mild mitral regurgitation. Aortic Valve Aortic valve sclerosis. Moderate aortic stenosis with a peak gradient of 40 mmHg and a mean gradient of 23 mmHg. Mild aortic regurgitation. Tricuspid Valve Structurally normal tricuspid valve. Mild tricuspid regurgitation. Pulmonic Valve Pulmonic valve not well visualized. Trace pulmonic regurgitation. Pericardium No pericardial effusion. Aorta Normal size aortic root and proximal ascending aorta. CONCLUSIONS Left ventricle is at upper limits of normal with a global decrease in contractility. Mitral annular calcification noted. There is calcification of aortic valve leaflets with restriction moderate stenosis. Mild regurgitation. Mild to moderate tricuspid regurgitation, mild mitral regurgitation. Moderate pulmonary hypertension. No pericardial effusion Previewed by: Dr. Lucas Goncalves MD (Electronically Signed) Final Date: 13 Jan 2025 08:05
== END 2025-01-12 15:08 | disposition home health service (06) | DRG 281 ==
LOC: EC 08:13 → 2SICU 09:01 → 3SCARD 01-12 10:09
PROVIDERS: ADMIT Hospitalist; ATTEND Hospitalist
PROC: B2111ZZ Fluoroscopy of Multiple Coronary Arteries using Low Osmolar Contrast (ICD-10-PCS; 2025-01-11)
PROC: B2181ZZ Fluoroscopy of Left Internal Mammary Bypass Graft using Low Osmolar Contrast (ICD-10-PCS; 2025-01-11)
PROC: B2131ZZ Fluoroscopy of Multiple Coronary Artery Bypass Grafts using Low Osmolar Contrast (ICD-10-PCS; 2025-01-11)
PROC: 30233N1 Transfusion of Nonautologous Red Blood Cells into Peripheral Vein, Percutaneous Approach (ICD-10-PCS; 2025-01-11)
PROC: 6A550Z0 Pheresis of Erythrocytes, Single (ICD-10-PCS; 2025-01-11)
PROC: 4A023N7 Measurement of Cardiac Sampling and Pressure, Left Heart, Percutaneous Approach (ICD-10-PCS; principal; 2025-01-11 08:50)
DX: I21.19 ST elevation (STEMI) myocardial infarction involving other coronary artery of inferior wall (principal); I50.22 Chronic systolic (congestive) heart failure; I11.0 Hypertensive heart disease with heart failure; F10.10 Alcohol abuse, uncomplicated; E78.5 Hyperlipidemia, unspecified; D49.511 Neoplasm of unspecified behavior of right kidney; D50.8 Other iron deficiency anemias; I70.202 Unspecified atherosclerosis of native arteries of extremities, left leg; I08.0 Rheumatic disorders of both mitral and aortic valves; Z89.512 Acquired absence of left leg below knee; I25.10 Atherosclerotic heart disease of native coronary artery without angina pectoris; I25.82 Chronic total occlusion of coronary artery; I25.5 Ischemic cardiomyopathy; F17.210 Nicotine dependence, cigarettes, uncomplicated; Z95.1 Presence of aortocoronary bypass graft; Z82.49 Family history of ischemic heart disease and other diseases of the circulatory system; I25.2 Old myocardial infarction; Z79.01 Long term (current) use of anticoagulants; Z79.02 Long term (current) use of antithrombotics/antiplatelets; Z79.899 Other long term (current) drug therapy; Z79.82 Long term (current) use of aspirin; Z87.19 Personal history of other diseases of the digestive system
CPT/HCPCS: 36415; 71045; 80048; 80053; 80061; 83690; 83880; 84484; 85025; 85027; 85610; 85730; 86850; 86900; 86901; 86920; 93005; 93306; 93459; 96374; 99285

== ENCOUNTER 2025-02-24 04:38 | Observation (INO) | payer MEDICARE ==
--- NOTE | 2025-02-24 04:50 | ED ---
General Adult HPI - General Stated complaint: abn labs Time Seen by Provider: 02/24/25 04:39 Source: patient Mode of arrival: EMS Limitations: no limitations - History of Present Illness Initial comments: This patient is a 74-year-old man who presents evaluation for a number of s ymptoms that had started coming on a bit afternoon. Patient states that he was feeling chilled and having weakness. There was no focal component he was complaining of generalized weakness. He has also had development of nausea and has vomited a few times. He has not seen coffee-ground or bloody emesis. Patient states that there was also some dyspnea and this led him to call EMS. The patient states he did receive medication for vomiting EMS and given 4 mg ondansetron. He is feeling a little better with respect to the nausea and vomiting. Onset/Timin -: hour(s) Location: abdomen Radiation: non-radiation Quality: other Consistency: intermittent Improves with: none Worsens with: none Associated Symptoms: nausea/vomiting, shortness of breath, weakness Treatments Prior to Arrival: none - Related Data Home Medications Medication Instructions Recorded Confirmed Loratadine [Claritin] 10 mg PO DAILY 09/08/20 02/23/25 Atorvastatin [Lipitor] 80 mg PO DAILY 09/20/23 02/23/25 polyethylene glycoL 3350 [Miralax] 17 gm PO DAILY 10/05/23 02/23/25 Multivitamins, Thera [Multivitamin 1 tab PO DAILY 10/10/23 02/23/25 (formulary)] carvediloL [Coreg] 6.25 mg PO DAILY 10/10/23 02/23/25 Omeprazole 20 mg PO DAILY 06/25/24 02/23/25 HYDROcodone/APAP 5-325MG [[place] 1 tab PO Q6HR PRN 07/25/24 02/23/25 5-325] Ferrous Sulfate [Iron (65 MG 325 mg PO DAILY 11/14/24 02/23/25 Elemental)] Magnesium Oxide [Mag-Ox] 500 mg PO DAILY 11/14/24 02/23/25 Silver Sulfadiazine [Silver 1 applic TOPICAL BID 11/14/24 02/23/25 Sulfadiazine 1%] Spironolactone [Aldactone] 25 mg PO DAILY 11/14/24 02/23/25 Gabapentin 600 mg PO TID PRN 12/25/24 02/23/25 Previous Rx's Medication Instructions Recorded Folic Acid 1 mg PO DAILY tab 09/25/23 Thiamine [Vitamin B-1] 100 mg PO DAILY tab 09/25/23 Aspirin 81 mg PO DAILY #30 tab 01/12/25 Nitroglycerin Sl Tabs [Nitrostat] 0.4 mg SUBLINGUAL Q5M PRN #30 tab 01/12/25 Allergies Allergy/AdvReac Type Severity Reaction Status Date / Time No Known Allergies Allergy Verified 02/24/25 04:49 Review of Systems ROS Statement: Those systems with pertinent positive or pertinent negative responses have been documented in the HPI. ROS Other: All systems not noted in ROS Statement are negative. Constitutional: Reports: chills, weakness. Denies: fever ENT: Denies: throat pain, congestion Respiratory: Reports: dyspnea. Denies: cough, wheezes, hemoptysis Cardiovascular: Denies: chest pain, palpitations Gastrointestinal: Reports: abdominal pain, nausea, vomiting. Denies: diarrhea, hematemesis, melena, hematochezia Genitourinary: Denies: dysuria, hematuria Musculoskeletal: Denies: back pain Skin: Denies: rash Neurological: Denies: headache, weakness Hematological/Lymphatic: Denies: easy bleeding Past Medical History Past Medical History: Coronary Artery Disease (CAD), Heart Failure, Hyperlipidemia, Hypertension, Vascular Disorder Additional Past Medical History / Comment(s): aortic aneusrym repair, herniated disc, peripheral vascular disease, anemia Last Myocardial Infarction Date:: 02/2023 History of Any Multi-Drug Resistant Organisms: None Reported Past Surgical History: Appendectomy, Coronary Bypass/CABG, Orthopedic Surgery Additional Past Surgical History / Comment(s): Right rotater cuff repair, L first and second toe removal. LBKA Past Anesthesia/Blood Transfusion Reactions: No Reported Reaction Smoking Status: Current some day smoker - Past Family History Father Family Medical History: Coronary Artery Disease (CAD) Additional Family Medical History / Comment(s): triple bypass Mother Family Medical History: Coronary Artery Disease (CAD), Dementia General Exam General appearance: alert Head exam: Present: atraumatic, normocephalic Eye exam: Present: normal appearance. Absent: scleral icterus, conjunctival injection ENT exam: Present: normal exam Neck exam: Present: normal inspection, full ROM. Absent: tenderness Respiratory exam: Present: normal lung sounds bilaterally. Absent: respiratory distress, wheezes, rales Cardiovascular Exam: Present: regular rate, normal rhythm, normal heart sounds. Absent: systolic murmur, diastolic murmur, rubs, gallop GI/Abdominal exam: Present: soft, normal bowel sounds. Absent: distended, tenderness, guarding, rebound, rigid, mass Extremities exam: Present: normal inspection, normal capillary refill. Absent: pedal edema, calf tenderness Back exam: Present: normal inspection Neurological exam: Present: alert Skin exam: Present: warm, dry, intact, normal color. Absent: rash Course Vital Signs 02/24/25 02/24/25 02/24/25 04:45 04:54 06:15 Temperature 97.7 F Pulse Rate 79 75 Respiratory 19 13 15 Rate Blood Pressure 170/76 150/67 O2 Sat by Pulse 100 100 Oximetry 02/24/25 07:55 Temperature Pulse Rate 75 Respiratory 20 Rate Blood Pressure 140/67 O2 Sat by Pulse 100 Oximetry EKG Findings - EKG Results: EKG: interpreted by ERMD, sinus rhythm (Rate 81 bpm), normal axis - Blocks, [place], Hypertrophy, ST Abn: AV and intraventricular conduction: intraventricular conduction delay Medical Decision Making - Medical Decision Making The patient had chest x-ray that I interpreted as negative for acute infiltrate, pneumothorax Patient is 72-year-old man with constellation of symptoms including dyspnea and abdominal pain. Found to have moderate hyponatremia. - Lab Data Result diagrams: 02/24/25 05:00 02/24/25 05:00 Lab Results 02/24/25 02/24/25 02/24/25 Range/Units 05:00 05:00 05:00 WBC 12.74 H (4.50-10.00) 10*3/uL RBC 4.41 (4.40-5.60) 10*6/uL Hgb 11.6 L D (13.0-17.0) g/dL Hct 35.4 L (39.6-50.0) % MCV 80.3 (80.0-97.0) fL MCH 26.3 L (27.0-32.0) pg MCHC 32.8 (32.0-37.0) g/dL Plt Count 472 H (140-440) 10*3/uL MPV 8.5 L (9.5-12.2) fL Immature Gran % (Auto) 0.4 % Neutrophils % 91.4 % Lymphocytes % 1.9 % Monocytes % 5.8 % Eosinophils % 0.2 % Basophils % 0.3 % Immature Gran # 0.05 H (0.00-0.04) 10*3/uL Neutrophils # 11.65 H (1.80-7.70) 10*3/uL Lymphocytes # 0.24 L (0.90-5.00) 10*3/uL Monocytes # 0.74 (0.20-1.00) 10*3/uL Eosinophils # 0.02 L (0.04-0.35) 10*3/uL Basophils # 0.04 (0.00-0.10) 10*3/uL PT 11.1 (10.0-12.5) sec INR 1.0 (<1.2) APTT 23.1 (22.0-30.0) sec Sodium 125 L (137-145) mmol/L Potassium 4.2 (3.5-5.1) mmol/L Chloride 88 L (98-107) mmol/L Carbon Dioxide 24 (22-30) mmol/L Anion Gap 13 mmol/L BUN 18 (9-20) mg/dL Creatinine 0.57 L (0.66-1.25) mg/dL Est GFR (CKD-EPI)AfAm >90 (>60 ml/min/1.73 sqM) Est GFR (CKD-EPI)NonAf >90 (>60 ml/min/1.73 sqM) Glucose 105 H (74-99) mg/dL Plasma Lactic Acid William (0.7-2.0) mmol/L Calcium 10.1 (8.4-10.2) mg/dL Magnesium 1.7 (1.6-2.3) mg/dL Total Bilirubin 1.0 (0.2-1.3) mg/dL AST 55 (17-59) U/L ALT 28 (4-49) U/L Alkaline Phosphatase 133 H (38-126) U/L Troponin I (0.000-0.034) ng/mL NT-Pro-B Natriuret Pep 3170 pg/mL Total Protein 8.6 H (6.3-8.2) g/dL Albumin 5.3 H (3.5-5.0) g/dL Stool Occult Blood (Negative) Blood Type Blood Type Recheck Bld Type Recheck Status Antibody Screen Spec Expiration Date 02/24/25 02/24/25 02/24/25 Range/Units 05:00 05:00 05:41 WBC (4.50-10.00) 10*3/uL RBC (4.40-5.60) 10*6/uL Hgb (13.0-17.0) g/dL Hct (39.6-50.0) % MCV (80.0-97.0) fL MCH (27.0-32.0) pg MCHC (32.0-37.0) g/dL Plt Count (140-440) 10*3/uL MPV (9.5-12.2) fL Immature Gran % (Auto) % Neutrophils % % Lymphocytes % % Monocytes % % Eosinophils % % Basophils % % Immature Gran # (0.00-0.04) 10*3/uL Neutrophils # (1.80-7.70) 10*3/uL Lymphocytes # (0.90-5.00) 10*3/uL Monocytes # (0.20-1.00) 10*3/uL Eosinophils # (0.04-0.35) 10*3/uL Basophils # (0.00-0.10) 10*3/uL PT (10.0-12.5) sec INR (<1.2) APTT (22.0-30.0) sec Sodium (137-145) mmol/L Potassium (3.5-5.1) mmol/L Chloride (98-107) mmol/L Carbon Dioxide (22-30) mmol/L Anion Gap mmol/L BUN (9-20) mg/dL Creatinine (0.66-1.25) mg/dL Est GFR (CKD-EPI)AfAm (>60 ml/min/1.73 sqM) Est GFR (CKD-EPI)NonAf (>60 ml/min/1.73 sqM) Glucose (74-99) mg/dL Plasma Lactic Acid William 1.2 (0.7-2.0) mmol/L Calcium (8.4-10.2) mg/dL Magnesium (1.6-2.3) mg/dL Total Bilirubin (0.2-1.3) mg/dL AST (17-59) U/L ALT (4-49) U/L Alkaline Phosphatase (38-126) U/L Troponin I 0.028 (0.000-0.034) ng/mL NT-Pro-B Natriuret Pep pg/mL Total Protein (6.3-8.2) g/dL Albumin (3.5-5.0) g/dL Stool Occult Blood POSITIVE (Negative) Blood Type Blood Type Recheck Bld Type Recheck Status Antibody Screen Spec Expiration Date 02/24/25 Range/Units 06:25 WBC (4.50-10.00) 10*3/uL RBC (4.40-5.60) 10*6/uL Hgb (13.0-17.0) g/dL Hct (39.6-50.0) % MCV (80.0-97.0) fL MCH (27.0-32.0) pg MCHC (32.0-37.0) g/dL Plt Count (140-440) 10*3/uL MPV (9.5-12.2) fL Immature Gran % (Auto) % Neutrophils % % Lymphocytes % % Monocytes % % Eosinophils % % Basophils % % Immature Gran # (0.00-0.04) 10*3/uL Neutrophils # (1.80-7.70) 10*3/uL Lymphocytes # (0.90-5.00) 10*3/uL Monocytes # (0.20-1.00) 10*3/uL Eosinophils # (0.04-0.35) 10*3/uL Basophils # (0.00-0.10) 10*3/uL PT (10.0-12.5) sec INR (<1.2) APTT (22.0-30.0) sec Sodium (137-145) mmol/L Potassium (3.5-5.1) mmol/L Chloride (98-107) mmol/L Carbon Dioxide (22-30) mmol/L Anion Gap mmol/L BUN (9-20) mg/dL Creatinine (0.66-1.25) mg/dL Est GFR (CKD-EPI)AfAm (>60 ml/min/1.73 sqM) Est GFR (CKD-EPI)NonAf (>60 ml/min/1.73 sqM) Glucose (74-99) mg/dL Plasma Lactic Acid William (0.7-2.0) mmol/L Calcium (8.4-10.2) mg/dL Magnesium (1.6-2.3) mg/dL Total Bilirubin (0.2-1.3) mg/dL AST (17-59) U/L ALT (4-49) U/L Alkaline Phosphatase (38-126) U/L Troponin I (0.000-0.034) ng/mL NT-Pro-B Natriuret Pep pg/mL Total Protein (6.3-8.2) g/dL Albumin (3.5-5.0) g/dL Stool Occult Blood (Negative) Blood Type A Negative Blood Type Recheck A Neg Bld Type Recheck Status No Antibody Screen NEGATIVE Spec Expiration Date 02/27/2025 - 2324 Disposition
[2025-02-24 05:48] LABS: Basophils # (A) 0.04 10*3/uL (0.00-0.10); Basophils % (A) 0.3 %; Eosinophils # (A) 0.02 10*3/uL (0.04-0.35); Eosinophils % (A) 0.2 %; HCT 35.4 % (39.6-50.0); Lymphocytes # (A) 0.24 10*3/uL (0.90-5.00); Lymphocytes % (A) 1.9 %; MCH 26.3 pg (27.0-32.0); MCHC 32.8 g/dL (32.0-37.0); MCV 80.3 fL (80.0-97.0); Mean Platelet Volume 8.5 fL (9.5-12.2); Monocytes # (A) 0.74 10*3/uL (0.20-1.00); Monocytes % (A) 5.8 %; Neutrophils # (A) 11.65 10*3/uL (1.80-7.70); Neutrophils % (A) 91.4 %; Platelet Count 472 10*3/uL (140-440); RBC 4.41 10*6/uL (4.40-5.60); RDW 19.7 % (11.5-14.5); WBC 12.74 10*3/uL (4.50-10.00)
[2025-02-24 06:06] LABS: ALT 28 U/L (4-49); African American GFR (CKD) >90 (>60 ml/min/1.73 sqM); Anion Gap 13 mmol/L; Blood Urea Nitrogen 18 mg/dL (9-20); Calcium 10.1 mg/dL (8.4-10.2); Carbon Dioxide 24 mmol/L (22-30); Chloride 88 mmol/L (98-107); Glucose 105 mg/dL (74-99); Magnesium 1.7 mg/dL (1.6-2.3); Non-African American GFR(CKD) >90 (>60 ml/min/1.73 sqM); Potassium 4.2 mmol/L (3.5-5.1); Sodium 125 mmol/L (137-145)
[2025-02-24 06:07] LABS: AST 55 U/L (17-59); Albumin 5.3 g/dL (3.5-5.0); Alkaline Phosphatase 133 U/L (38-126); Total Protein 8.6 g/dL (6.3-8.2)
[2025-02-24 06:14] LABS: NT-Pro-B-Type Natriuretic Pept 3170 pg/mL
[2025-02-24 06:34] LABS: HGB 11.6 g/dL (13.0-17.0)
[2025-02-24 06:38] LABS: Partial Thromboplastin Time 23.1 sec (22.0-30.0); Prothrombin Time 11.1 sec (10.0-12.5)
--- NOTE | 2025-02-24 07:27 | XR ---
EXAMINATION TYPE: XR chest 2V DATE OF EXAM: 02/24/2025 6:14 AM COMPARISON: 01/11/2025 CLINICAL INDICATION: Male, 74 years old with history of difficulty breathing, TECHNIQUE: XR chest 2V view(s) obtained. FINDINGS: The heart size is normal. The pulmonary vasculature is normal. The lungs are clear. Fractured sternotomy wires are evident. IMPRESSION: 1. No acute pulmonary process. [facility], , 02/24/2025 7:24 AM
[2025-02-24] MEDS: MORPHINE SULFATE 4 MG/ML SYRINGE IV STA (07:54)
[2025-02-24] MEDS: PANTOPRAZOLE 40 MG/10 ML VIAL IVP SCH (08:00)
--- NOTE | 2025-02-24 09:31 | CT ---
EXAMINATION TYPE: CT abdomen pelvis wo con DATE OF EXAM: 02/24/2025 9:09 AM COMPARISON: 10/10/2023 CLINICAL INDICATION: Male, 74 years old with history of abdominal pain, abd pain TECHNIQUE: Axial images were obtained from above the diaphragm to the pubic rami in the axial plane a t 5 mm thick sections. Reconstructed images are reviewed on the computer in the coronal plane. CONTRAST: mL of . Study performed without Oral Contrast DLP: 387.1 mGycm, Automated exposure control for dose reduction was used. FINDINGS: Limited CT sections are obtained the lung bases. The lung bases are clear. CT ABDOMEN: Liver: Normal Spleen: Normal Pancreas: Normal Adrenal glands: The adrenal glands are normal. Gallbladder: Normal Kidneys: No masses are evident. No hydronephrosis is present. There is a large anterior mid right r enal cyst measuring 8.7 cm. Previous approximately 8.4 cm. Multiple calcifications within the bilater al kidneys. Majority of these appear to be vascular in nature. No obstructing renal stones are eviden t. Delayed images were obtained through the kidneys, which remain unremarkable. Aorta: There is an abdominal aortic aneurysm with a stent. Aneurysm measures 5.6 cm. This terminates at the bifurcation. Iliac artery dilatation is present notably on the right measuring 2.3 cm. Inferior vena cava: Normal. CT PELVIS: Fluid-filled loops of bowel are present through the small bowel loops. Colon appears decompressed. St omach is distended with fluid. This study is without oral contrast limiting evaluation Appendix: Normal as visualized. Urinary bladder: Some diffuse wall thickening may be present. Genitourinary structures: Prostate is slightly prominent. Osseous structures: No suspicious lytic or sclerotic lesions. IMPRESSION: 1. Clinical correlation for ileus. 2. Large anterior left renal cyst. 3. Stented aortoiliac aneurysm [facility], , 02/24/2025 9:29 AM
[2025-02-24 09:41] LABS: Appearance,Urine Clear (Clear); Bilirubin,Urine Negative (Negative); Blood,Urine Negative (Negative); Color,Urine Colorless; Glucose,Urine (UA) Negative (Negative); Ketones,Urine Negative (Negative); Leukocyte Esterase,Urine Negative (Negative); Nitrite,Urine Negative (Negative); PH, Urine 5.5 (5.0-8.0); Protein,Urine Trace (Negative); Specific Gravity,Urine 1.012 (1.001-1.035); Urobilinogen,Urine <2.0 mg/dL (<2.0)
[2025-02-24] MEDS: ATORVASTATIN 80 MG TAB PO SCH (12:37)
[2025-02-24] MEDS: CLOPIDOGREL 75 MG TAB PO SCH (12:37)
[2025-02-24] MEDS: carvediloL 6.25 MG TAB PO SCH (12:37)
[2025-02-24] MEDS: ASPIRIN 81 MG PO SCH (12:37)
[2025-02-24] MEDS: SPIRONOLACTONE 25 MG TAB PO SCH (12:38)
--- NOTE | 2025-02-24 12:45 | P.CRDCN ---
History of Present Illness History of present illness: HISTORY OF PRESENT ILLNESS: This is a 74-year-old male with a past medical history significant for coronary artery disease with previous CABG, cardiomyopathy, ventricular tachycardia, per ipheral arterial disease, valvular heart disease, hypertension, hyperlipidemia, infrarenal abdominal aortic aneurysm, and nicotine dependence. Patient follows in the office with Dr. Hoffman. We have been asked to see the patient in consultation for congestive heart failure. Patient examined at the bedside. Patient reports he was not feeling well and states he was feeling "terrible". This started yesterday out of the blue. He reports abdominal pain and nausea. He states it got worse throughout the day. He reports generalized weakness. He denies any chest pain or pressure. Denies SOB. DIAGNOSTICS: - EKG reveals sinus mechanism with no signs of acute ischemia. - Chest xray negative for acute process - Laboratory data: WBC 12.74. Hemoglobin 11.6. Platelet count 472. Sodium 125. Potassium 4.2. BUN 18. Creatinine 0.57. Troponin negative x 1. proBNP 3170. - Current home cardiac medications include aspirin 81 mg daily, Plavix 75 mg daily, carvedilol 6.25 mg daily, Lipitor 80 mg daily, Aldactone 25 mg daily. - Most recent echocardiogram obtained in January 2025 revealed ejection fraction 25 to 30%, moderate pulm hypertension, mild mitral regurgitation, moderate aortic stenosis with peak gradient 40 mmHg and mean gradient 23 mmHg, mild aortic regurgitation, mild tricuspid regurgitation - Cardiac catheterization history: January 2025 revealing left main 70% stenosis, 100% mid LAD stenosis, circumflex 60 to 70% stenosis, RCA 100% stenosis, distal superior branch of OM 80% stenosis. Patent SVG to OM, SVG to PDA, ARRIAZA to LAD. Medical management was recommended. REVIEW OF SYSTEMS: At the time of my exam: CONSTITUTIONAL: Denies fever or chills. HEENT: Denies blurred vision, vision changes, or eye pain. Denies hemoptysis CARDIOVASCULAR: Denies chest pain. Denies orthopnea. Denies PND. Denies palpitations RESPIRATORY: Denies shortness of breath. GASTROINTESTINAL: Denies abdominal pain. Denies nausea or vomiting. HEMATOLOGIC: Denies bleeding disorders. GENITOURINARY: Denies any blood in urine. SKIN: Denies pruitis. Denies rash. PHYSICAL EXAM: VITAL SIGNS: Reviewed. GENERAL: Well-developed in no acute distress. HEENT: Head is normocephalic. Pupils are equal, round. Sclerae anicteric. Mucous membranes of the mouth are moist. Neck supple. No JVD or thyromegaly LUNGS: Respirations even and unlabored. Lungs essentially clear to auscultation bilaterally. HEART: Regular rate and rhythm. S1 and S2 heard. +systolic murmur ABDOMEN: Soft. Nondistended. Nontender. EXTREMITIES: Normal range of motion. No clubbing or cyanosis. Peripheral pulses intact. Left BKA. NEUROLOGIC: Awake and alert. Oriented x 3. ASSESSMENT: Abdominal pain Nausea and vomiting Hyponatremia Coronary artery disease with previous CABG Ischemic cardiomyopathy, 25 to 30% Chronic heart failure with reduced EF Peripheral arterial disease Valvular heart disease with mild MR, moderate aortic stenosis, mild aortic regurgitation, mild tricuspid regurgitation Moderate pulmonary hypertension Left BKA History of ventricular tachycardia Hypertension Hyperlipidemia Infrarenal abdominal aortic aneurysm Nicotine dependence Marijuana use PLAN: No need to repeat echocardiogram as this was performed in January 2025 Resume home cardiac medications Not clinically in heart failure at time of examination Await evaluation of abdominal pain Stable from a cardiac standpoint Further recommendations pending patient course Nurse practitioner note has been reviewed by physician. Signing provider agrees with the documented findings, assessment, and plan of care documented by SALVAGE GRINDER as a scribe. Past Medical History Past Medical History: Coronary Artery Disease (CAD), Heart Failure, Hyperlipidemia, Hypertension, Vascular Disorder Additional Past Medical History / Comment(s): aortic aneusrym repair, herniated disc, peripheral vascular disease, anemia Last Myocardial Infarction Date:: 02/2023 History of Any Multi-Drug Resistant Organisms: None Reported Past Surgical History: Appendectomy, Coronary Bypass/CABG, Orthopedic Surgery Additional Past Surgical History / Comment(s): Right rotater cuff repair, L first and second toe removal. LBKA Past Anesthesia/Blood Transfusion Reactions: No Reported Reaction Past Psychological History: No Psychological Hx Reported Smoking Status: Current some day smoker Past Alcohol Use History: Daily Additional Past Alcohol Use History / Comment(s): "smokes once in a great while" Past Drug Use History: Marijuana Additional Drug Use History / Comment(s): Pt aware not to use 24hrs before procedure - Past Family History Father Family Medical History: Coronary Artery Disease (CAD) Additional Family Medical History / Comment(s): triple bypass Mother Family Medical History: Coronary Artery Disease (CAD), Dementia Medications and Allergies Home Medications Medication Instructions Recorded Confirmed Type Loratadine [Claritin] 10 mg PO DAILY 09/08/20 02/24/25 History Atorvastatin [Lipitor] 80 mg PO DAILY 09/20/23 02/24/25 History Multivitamins, Thera [Multivitamin 1 tab PO DAILY 10/10/23 02/24/25 History (formulary)] carvediloL [Coreg] 6.25 mg PO DAILY 10/10/23 02/24/25 History Ferrous Sulfate [Iron (65 MG 325 mg PO DAILY 11/14/24 02/24/25 History Elemental)] Silver Sulfadiazine [Silver 1 applic TOPICAL BID 11/14/24 02/24/25 History Sulfadiazine 1%] Spironolactone [Aldactone] 25 mg PO DAILY 11/14/24 02/24/25 History Gabapentin 600 mg PO TID PRN 12/25/24 02/24/25 History Aspirin 81 mg PO DAILY #30 tab 01/12/25 02/24/25 Rx Nitroglycerin Sl Tabs [Nitrostat] 0.4 mg SUBLINGUAL Q5M PRN #30 tab 01/12/25 02/24/25 Rx Clopidogrel [Plavix] 75 mg PO DAILY 02/24/25 02/24/25 History Cyclobenzaprine [Flexeril] 5 mg PO DAILY 02/24/25 02/24/25 History Allergies Allergy/AdvReac Type Severity Reaction Status Date / Time No Known Allergies Allergy Verified 02/24/25 08:48 Physical Exam Vitals: Vital Signs Temp Pulse Resp BP Pulse Ox 02/24/25 07:55 75 20 140/67 100 02/24/25 06:15 75 15 150/67 100 02/24/25 04:54 13 02/24/25 04:45 97.7 F 79 19 170/76 100 Intake and Output 02/23/25 02/24/25 02/24/25 22:59 06:59 14:59 Other: Weight 63.503 kg 63.503 kg Results 02/24/25 05:00 02/24/25 05:00 Cardiac Enzymes 02/24/25 02/24/25 Range/Units 05:00 05:00 AST 55 (17-59) U/L Troponin I 0.028 (0.000-0.034) ng/mL Coagulation 02/24/25 Range/Units 05:00 PT 11.1 (10.0-12.5) sec APTT 23.1 (22.0-30.0) sec CBC 02/24/25 Range/Units 05:00 WBC 12.74 H (4.50-10.00) 10*3/uL RBC 4.41 (4.40-5.60) 10*6/uL Hgb 11.6 L D (13.0-17.0) g/dL Hct 35.4 L (39.6-50.0) % Plt Count 472 H (140-440) 10*3/uL Comprehensive Metabolic Panel 02/24/25 Range/Units 05:00 Sodium 125 L (137-145) mmol/L Potassium 4.2 (3.5-5.1) mmol/L Chloride 88 L (98-107) mmol/L Carbon Dioxide 24 (22-30) mmol/L BUN 18 (9-20) mg/dL Creatinine 0.57 L (0.66-1.25) mg/dL Glucose 105 H (74-99) mg/dL Calcium 10.1 (8.4-10.2) mg/dL AST 55 (17-59) U/L ALT 28 (4-49) U/L Alkaline Phosphatase 133 H (38-126) U/L Total Protein 8.6 H (6.3-8.2) g/dL Albumin 5.3 H (3.5-5.0) g/dL Current Medications Generic Name Dose Route Start Last Admin Trade Name Freq PRN Reason Stop Dose Admin Pantoprazole Sodium 40 mg 02/24/25 09:00 02/24/25 08:00 Pantoprazole 40 Mg/10 Ml Vial IVP 40 mg BID LIZA Administration Sodium Chloride 10 ml 02/24/25 09:00 02/24/25 08:00 Sodium Chloride 0.9% Flush 10 Ml Syringe IV 10 ml BID LIZA Administration Intake and Output 02/23/25 02/24/25 02/24/25 22:59 06:59 14:59 Other: Weight 63.503 kg 63.503 kg Patient Weight 02/25/25 06:59 Weight 63.503 kg 02/24/25 05:00 02/24/25 05:00
[2025-02-24] MEDS ORDERED: GABAPENTIN 300 MG CAP PO PRN (12:55)
[2025-02-24] MEDS ORDERED: LORazepam 2 MG/ML INJ IV PRN (12:56)
[2025-02-24] MEDS ORDERED: LORazepam 0.5 MG TAB PO PRN (12:56)
--- NOTE | 2025-02-24 14:01 | P.GSCN ---
History of Present Illness Consult date: 02/24/25 History of present illness: CHIEF COMPLAINT: Nausea and vomiting HISTORY OF PRESENT ILLNESS: This is a 74-year-old male who presented the hospital with complaints of nausea and vomiting. He has been having loose stools. He reports decreased appetite. His last EGD and colonoscopy 2 years ago and unremarkable per patient. Patient also reports that he had been anemic 3 weeks ago requiring a blood transfusion. CT scan abdomen pelvis reports clinical correlation for ileus. PAST MEDICAL HISTORY: See below. Ischemic cardiomyopathy, valvular heart disease, moderate aortic stenosis, mild mitral regurgitation, mild aortic regurgitation and mild tricuspid regurgitation moderate pulmonary hypertension, infrarenal abdominal aortic aneurysm PAST SURGICAL HISTORY: See below MEDICATIONS: See below ALLERGIES: See below SOCIAL HISTORY: No illicit drug use. REVIEW OF SYSTEMS: CONSTITUTIONAL: Denies fever or chills. HEENT: Denies blurred vision, vision changes, or eye pain. Denies hemoptysis CARDIOVASCULAR: Denies chest pain or pressure. RESPIRATORY: No shortness of breath. GASTROINTESTINAL: See HPI for pertinent findings HEMATOLOGIC: Denies bleeding disorders. GENITOURINARY: Denies any blood in urine or increased urinary frequency. SKIN: Denies pruitis. Denies rash. PHYSICAL EXAM: VITAL SIGNS: Reviewed GENERAL: Well-developed in no acute distress. HEENT: No sclera icterus. Extraocular movements grossly intact. Moist buccal mucosa. Head is atraumatic, normocephalic. No nasal drainage. ABDOMEN: Soft. Nondistended. Nontender NEUROLOGIC: Alert and oriented. Cranial nerves II through XII grossly intact. LABORATORY DATA: WBC 12.74 Hgb 11.6 platelets 472 INR 1.0 Sodium 125 potassium 4.2 creatinine 0.57 Lactic acid 1.2 Stool for occult blood positive IMAGING: CT scan abdomen pelvis reports clinical correlation for ileus. Large anterior left renal cyst. Stented aortoiliac aneurysm. ASSESSMENT: 1. Abdominal ileus 2. Abdominal pain 3. Hyponatremia PLAN: - No surgical intervention planned - Continue to monitor - Encourage patient to increase activity level - Medical management for hyponatremia - Repeat labs in a.m. - Okay for regular diet Physician Wood Processing Worker note has been reviewed by physician. Signing provider agrees with the documented findings, assessment, and plan of care. Attestation Patient seen and examined at bedside. Presented with chief complaint of nausea and vomiting and weakness. On workup CT of the abdomen pelvis showed signs of ileus. Patient is noted to be hyponatremic. He states that he did have EGD and colonoscopy within the last 2 years with no acute findings. He also does have history of anemia and has required blood transfusion in the past. No evidence of GI bleeding at this time. Current hemoglobin is 11.6. Okay for regular diet. Manage electrolytes. No plan for surgical intervention at this time. Nano Freeman, Past Medical History Past Medical History: Coronary Artery Disease (CAD), Heart Failure, Hyperlipidemia, Hypertension, Vascular Disorder Additional Past Medical History / Comment(s): aortic aneusrym repair, herniated disc, peripheral vascular disease, anemia Last Myocardial Infarction Date:: 02/2023 History of Any Multi-Drug Resistant Organisms: None Reported Past Surgical History: Appendectomy, Coronary Bypass/CABG, Orthopedic Surgery Additional Past Surgical History / Comment(s): Right rotater cuff repair, L first and second toe removal. LBKA Past Anesthesia/Blood Transfusion Reactions: No Reported Reaction Past Psychological History: No Psychological Hx Reported Smoking Status: Current some day smoker Past Alcohol Use History: Daily Additional Past Alcohol Use History / Comment(s): "smokes once in a great while" Past Drug Use History: Marijuana Additional Drug Use History / Comment(s): Pt aware not to use 24hrs before procedure - Past Family History Father Family Medical History: Coronary Artery Disease (CAD) Additional Family Medical History / Comment(s): triple bypass Mother Family Medical History: Coronary Artery Disease (CAD), Dementia Medications and Allergies Home Medications Medication Instructions Recorded Confirmed Type Loratadine [Claritin] 10 mg PO DAILY 09/08/20 02/24/25 History Atorvastatin [Lipitor] 80 mg PO DAILY 09/20/23 02/24/25 History Multivitamins, Thera [Multivitamin 1 tab PO DAILY 10/10/23 02/24/25 History (formulary)] carvediloL [Coreg] 6.25 mg PO DAILY 10/10/23 02/24/25 History Ferrous Sulfate [Iron (65 MG 325 mg PO DAILY 11/14/24 02/24/25 History Elemental)] Silver Sulfadiazine [Silver 1 applic TOPICAL BID 11/14/24 02/24/25 History Sulfadiazine 1%] Spironolactone [Aldactone] 25 mg PO DAILY 11/14/24 02/24/25 History Gabapentin 600 mg PO TID PRN 12/25/24 02/24/25 History Aspirin 81 mg PO DAILY #30 tab 01/12/25 02/24/25 Rx Nitroglycerin Sl Tabs [Nitrostat] 0.4 mg SUBLINGUAL Q5M PRN #30 tab 01/12/25 02/24/25 Rx Clopidogrel [Plavix] 75 mg PO DAILY 02/24/25 02/24/25 History Cyclobenzaprine [Flexeril] 5 mg PO DAILY 02/24/25 02/24/25 History Allergies Allergy/AdvReac Type Severity Reaction Status Date / Time No Known Allergies Allergy Verified 02/24/25 08:48 Surgical - Exam Osteopathic Statement: *. No significant issues noted on an osteopathic structural exam other than those noted in the History and Physical/Consult. Vital Signs Temp Pulse Resp BP Pulse Ox 97.7 F 79 18 170/76 100 02/24/25 04:45 02/24/25 04:45 02/24/25 04:45 02/24/25 04:45 02/24/25 04:45 Results - Labs 02/25/25 03:46 02/24/25 05:00 Abnormal Lab Results - Last 24 Hours (Table) 02/24/25 02/24/25 02/24/25 Range/Units 05:00 05:00 09:10 WBC 12.74 H (4.50-10.00) 10*3/uL Hgb 11.6 L D (13.0-17.0) g/dL Hct 35.4 L (39.6-50.0) % MCH 26.3 L (27.0-32.0) pg Plt Count 472 H (140-440) 10*3/uL MPV 8.5 L (9.5-12.2) fL Immature Gran # 0.05 H (0.00-0.04) 10*3/uL Neutrophils # 11.65 H (1.80-7.70) 10*3/uL Lymphocytes # 0.24 L (0.90-5.00) 10*3/uL Eosinophils # 0.02 L (0.04-0.35) 10*3/uL Sodium 125 L (137-145) mmol/L Chloride 88 L (98-107) mmol/L Creatinine 0.57 L (0.66-1.25) mg/dL Glucose 105 H (74-99) mg/dL Alkaline Phosphatase 133 H (38-126) U/L Total Protein 8.6 H (6.3-8.2) g/dL Albumin 5.3 H (3.5-5.0) g/dL Urine Protein Trace H (Negative) Diabetes panel 02/24/25 Range/Units 05:00 Sodium 125 L (137-145) mmol/L Potassium 4.2 (3.5-5.1) mmol/L Chloride 88 L (98-107) mmol/L Carbon Dioxide 24 (22-30) mmol/L BUN 18 (9-20) mg/dL Creatinine 0.57 L (0.66-1.25) mg/dL Glucose 105 H (74-99) mg/dL Calcium 10.1 (8.4-10.2) mg/dL AST 55 (17-59) U/L ALT 28 (4-49) U/L Alkaline Phosphatase 133 H (38-126) U/L Total Protein 8.6 H (6.3-8.2) g/dL Albumin 5.3 H (3.5-5.0) g/dL Calcium panel 02/24/25 Range/Units 05:00 Calcium 10.1 (8.4-10.2) mg/dL Albumin 5.3 H (3.5-5.0) g/dL Pituitary panel 02/24/25 Range/Units 05:00 Sodium 125 L (137-145) mmol/L Potassium 4.2 (3.5-5.1) mmol/L Chloride 88 L (98-107) mmol/L Carbon Dioxide 24 (22-30) mmol/L BUN 18 (9-20) mg/dL Creatinine 0.57 L (0.66-1.25) mg/dL Glucose 105 H (74-99) mg/dL Calcium 10.1 (8.4-10.2) mg/dL Adrenal panel 02/24/25 Range/Units 05:00 Sodium 125 L (137-145) mmol/L Potassium 4.2 (3.5-5.1) mmol/L Chloride 88 L (98-107) mmol/L Carbon Dioxide 24 (22-30) mmol/L BUN 18 (9-20) mg/dL Creatinine 0.57 L (0.66-1.25) mg/dL Glucose 105 H (74-99) mg/dL Calcium 10.1 (8.4-10.2) mg/dL Total Bilirubin 1.0 (0.2-1.3) mg/dL AST 55 (17-59) U/L ALT 28 (4-49) U/L Alkaline Phosphatase 133 H (38-126) U/L Total Protein 8.6 H (6.3-8.2) g/dL Albumin 5.3 H (3.5-5.0) g/dL
[2025-02-24] MEDS: ACETAMINOPHEN TAB 325 MG TAB PO PRN (18:04)
[2025-02-24] MEDS ORDERED: LORazepam 1 MG/0.5 ML VIAL IV PRN (18:18)
--- NOTE | 2025-02-24 19:17 | HP ---
HISTORY AND PHYSICAL CHIEF COMPLAINT: Abdominal pain as well as chills, weakness and abnormal labs. HISTORY OF PRESENT ILLNESS: This is a 74-year-old gentleman with a past medical history of multiple problems including CAD, CHF, was complaining of abdominal pain, weakness, and some vomiting. Yesterday, the patient came to [facility]. Chest x-ray showed no acute abnormalities. CAT scan of the abdomen and pelvis showed a large anterior left renal cyst and stented aortoiliac aneurysm and the patient was admitted for evaluation and treatment. There is no history of fever, rigors, or chills. PAST MEDICAL HISTORY: CAD, CABG, hypertension, hyperlipidemia. Rest of history and the chart is also reviewed. HOME MEDICATIONS: Reviewed. Doses and the rest of the medications are reviewed. ALLERGIES: None. FAMILY HISTORY: History of CAD, triple bypass. SOCIAL HISTORY: Daily alcohol, smoking, THC. REVIEW OF SYSTEMS: 14-point review of systems is negative, except as mentioned earlier. PHYSICAL EXAMINATION: VITAL SIGNS: Pulse is 75, blood pressure n, and respirations 20. HEENT: Conjunctivae normal. NECK: No jugular venous distention. CARDIOVASCULAR: S1, S2 muffled. RESPIRATION: Breath sounds diminished at the bases. No rhonchi. No crackles. ABDOMEN: Soft. Minimal diffuse tenderness. No guarding. No rigidity. No mass. LEGS: No edema. NERVOUS SYSTEM: Nonfocal. LABS: Reviewed. ASSESSMENT: 1. Abdominal pain, possibly acute gastritis. 2. Elevated WBC. 3. Hyponatremia. 4. History of coronary artery disease, coronary artery bypass grafting. 5. Hypertension. 6. Hyperlipidemia. 7. History of EtOH. RECOMMENDATIONS AND DISCUSSION: This is a 74-year-old gentleman, who presented with multiple complex medical issues. We will monitor the patient closely. I recommend to continue current management with Protonix 40 b.i.d., symptomatic treatment. Surgical evaluation for possible EGD. Closely follow with Cardiology. Guarded prognosis. Further recommendations to follow. Repeat labs in the morning. MMODL / IJN: [id number] / MTDD
[2025-02-24] MEDS ORDERED: ZINC OXIDE PASTE (Z-GUARD) 1 APPLIC TOPICAL PRN (19:56)
[2025-02-25 08:06] LABS: Basophils # (A) 0.04 X 10*3/uL (0.00-0.10); Basophils % (A) 0.4 %; Eosinophils # (A) 0.03 X 10*3/uL (0.04-0.35); Eosinophils % (A) 0.3 %; HGB 8.8 g/dL (13.0-17.0); Lymphocytes # (A) 0.28 X 10*3/uL (0.90-5.00); Lymphocytes % (A) 2.6 %; MCH 26.7 pg (27.0-32.0); MCHC 31.4 g/dL (32.0-37.0); MCV 84.8 FL (80.0-97.0); Mean Platelet Volume 9.5 FL (9.5-12.2); Monocytes # (A) 1.12 X 10*3/uL (0.20-1.00); Monocytes % (A) 10.5 %; NRBC Per 100 WBC 0 X 10*3/uL (0.00-0.01); Neutrophils # (A) 9.17 X 10*3/uL (1.80-7.70); Neutrophils % (A) 85.7 %; Platelet Count 366 X 10*3/uL (140-440); RDW 20.1 % (11.5-14.5); WBC 10.69 X 10*3/uL (4.50-10.00)
[2025-02-25] MEDS: FERROUS SULFATE 325 MG TAB PO SCH (08:19)
[2025-02-25] MEDS: CYCLOBENZAPRINE 5 MG TAB PO SCH (08:20)
[2025-02-25] MEDS: LORATADINE 10 MG TAB PO SCH (08:20)
[2025-02-25] MEDS: MULTIVITAMINS, THERA 1 EACH TAB PO SCH (08:20)
[2025-02-25 09:02] LABS: Glucose 88 mg/dL (70-110)
[2025-02-25 09:03] LABS: ALT 17 U/L (10-49); AST 22 U/L (14-35); Albumin 3.8 g/dL (3.8-4.9); Albumin/Globulin Ratio 1.73 Ratio (1.60-3.17); Alkaline Phosphatase 104 U/L (41-126); BUN/Creat Ratio 28.33 Ratio (12.00-20.00); Calcium 9.1 mg/dL (8.7-10.3); Carbon Dioxide 18.8 mmol/L (21.6-31.8); Chloride 95 mmol/L (96-109); Globulin 2.2 g/dL (1.6-3.3); Potassium 4.2 mmol/L (3.5-5.5); Sodium 127 mmol/L (135-145); Total Bilirubin 0.2 mg/dL (0.3-1.2)
[2025-02-25 09:59] VITALS: BP 135/62; PULSE 87; RESP 18; TEMP 97.7
[2025-02-25 11:41] VITALS: BMI 21.2
--- NOTE | 2025-02-25 12:42 | P.PN ---
Subjective HISTORY OF PRESENT ILLNESS: This is a 74-year-old male with a past medical history significant for coronary artery disease with previous CABG, cardiomyopathy, ventricular tachycardia, peripheral arterial disease, valvular heart disease, hypertension, hyperlipidemia, infrarenal abdominal aortic aneurysm, and nicotine dependence. Patient follows in the office with Dr. Hoffman. We have been asked to see the patient in consultation for congestive heart failure. Patient examined at the bedside. Patient reports he was not feeling well and states he was feeling "terrible". This started yesterday out of the blue. He reports abdominal pain and nausea. He states it got worse throughout the day. He reports generalized weakness. He denies any chest pain or pressure. Denies SOB. DIAGNOSTICS: - EKG reveals sinus mechanism with no signs of acute ischemia. - Chest xray negative for acute process - Laboratory data: WBC 12.74. Hemoglobin 11.6. Platelet count 472. Sodium 125. Potassium 4.2. BUN 18. Creatinine 0.57. Troponin negative x 1. proBNP 3170. - Current home cardiac medications include aspirin 81 mg daily, Plavix 75 mg daily, carvedilol 6.25 mg daily, Lipitor 80 mg daily, Aldactone 25 mg daily. - Most recent echocardiogram obtained in January 2025 revealed ejection fraction 25 to 30%, moderate pulm hypertension, mild mitral regurgitation, moderate aortic stenosis with peak gradient 40 mmHg and mean gradient 23 mmHg, mild aortic reg urgitation, mild tricuspid regurgitation - Cardiac catheterization history: January 2025 revealing left main 70% stenosis, 100% mid LAD stenosis, circumflex 60 to 70% stenosis, RCA 100% stenosis, distal superior branch of OM 80% stenosis. Patent SVG to OM, SVG to PDA, ARRIAZA to LAD. Medical management was recommended. 02/25/2025 Patient examined at the bedside. Patient denies CP of SOB. Abdominal pain, nausea, and vomiting has resolved. Vitals are stable. PHYSICAL EXAM: VITAL SIGNS: Reviewed. GENERAL: Well-developed in no acute distress. HEENT: Head is normocephalic. Pupils are equal, round. Sclerae anicteric. Mucous membranes of the mouth are moist. Neck supple. No JVD or thyromegaly LUNGS: Respirations even and unlabored. Lungs essentially clear to auscultation bilaterally. HEART: Regular rate and rhythm. S1 and S2 heard. +systolic murmur ABDOMEN: Soft. Nondistended. Nontender. EXTREMITIES: Normal range of motion. No clubbing or cyanosis. Peripheral pulses intact. Left BKA. NEUROLOGIC: Awake and alert. Oriented x 3. ASSESSMENT: Abdominal pain Nausea and vomiting Hyponatremia Coronary artery disease with previous CABG Ischemic cardiomyopathy, 25 to 30% Chronic heart failure with reduced EF Peripheral arterial disease Valvular heart disease with mild MR, moderate aortic stenosis, mild aortic regurgitation, mild tricuspid regurgitation Moderate pulmonary hypertension Left BKA History of ventricular tachycardia Hypertension Hyperlipidemia Infrarenal abdominal aortic aneurysm Nicotine dependence Marijuana use PLAN: No need to repeat echocardiogram as this was performed in January 2025 Continue current cardiac medications Not clinically in heart failure at time of examination Stable for discharge home today from a cardiac standpoint Nurse practitioner note has been reviewed by physician. Signing provider agrees with the documented findings, assessment, and plan of care documented by MEDICARE NURSE as a scribe. Objective - Vital Signs Vital signs: Vital Signs Temp 97.7 F 02/25/25 07:42 Pulse 87 02/25/25 07:50 Resp 18 02/25/25 07:50 BP 135/62 02/25/25 07:42 Pulse Ox 97 02/25/25 07:42 FiO2 Intake & Output 02/24/25 02/25/25 02/25/25 18:59 06:59 18:59 Intake Total 225 Output Total 200 250 Balance 25 -250 Weight 63.503 kg 63.503 kg Intake: Oral 225 Output: Urine 200 250 Other: Voiding Method Bedpan Bedpan Bedpan Urinal Urinal Urinal # Voids 1 - Labs CBC & Chem 7: 02/25/25 03:46 02/25/25 03:46 Labs: Abnormal Lab Results - Last 24 Hours (Table) 02/25/25 02/25/25 Range/Units 03:46 03:46 WBC 10.69 H (4.50-10.00) X 10*3/uL RBC 3.30 L (4.40-5.60) X 10*6/uL Hgb 8.8 L (13.0-17.0) g/dL Hct 28.0 L (39.6-50.0) % MCH 26.7 L (27.0-32.0) pg MCHC 31.4 L (32.0-37.0) g/dL RDW 20.1 H (11.5-14.5) % Immature Gran # 0.05 H (0.00-0.04) X 10*3/uL Neutrophils # 9.17 H (1.80-7.70) X 10*3/uL Lymphocytes # 0.28 L (0.90-5.00) X 10*3/uL Monocytes # 1.12 H (0.20-1.00) X 10*3/uL Eosinophils # 0.03 L (0.04-0.35) X 10*3/uL Sodium 127 L (135-145) mmol/L Chloride 95 L (96-109) mmol/L Carbon Dioxide 18.8 L (21.6-31.8) mmol/L Anion Gap 13.20 H (4.00-12.00) mmol/L BUN/Creatinine Ratio 28.33 H (12.00-20.00) Ratio Total Bilirubin 0.2 L (0.3-1.2) mg/dL Total Protein 6.0 L (6.2-8.2) g/dL
--- NOTE | 2025-02-26 05:30 | PN ---
PROGRESS NOTE SUBJECTIVE: The patient here with abdominal pain, nausea, vomiting, diarrhea. Surgical Service is following in regard to ileus. The patient reports that he was able to tolerate breakfast this morning with no further nausea or vomiting. He denies any abdominal pain. He does report that the appetite is decreased. Afebrile. Hemoglobin as of yesterday was 11.6 and sodium 125. I do not have access to today's labs due to the computers being down. OBJECTIVE: ABDOMEN: Soft, nontender, nondistended. ASSESSMENT: 1. Ileus. 2. Nausea, vomiting, and diarrhea. 3. Abdominal pain. PLAN: Offered the patient to have EGD completed inpatient, he has declined and would like to have a followup outpatient for possible outpatient EGD. Continue supportive care. Continue regular diet. MMODL / IJN: [id number] /
--- NOTE | 2025-02-26 08:23 | P.PN ---
Subjective Progress Note Date: 02/25/25 Redictating this note secondary to EMR downtime Patient was seen and examined at bedside. No acute events. States abdominal pain has resolved. No blood in his bowel function. Objective - Vital Signs Vital signs: Vital Signs Temp 97.7 F 02/25/25 07:42 Pulse 87 02/25/25 07:50 Resp 18 02/25/25 07:50 BP 135/62 02/25/25 07:42 Pulse Ox 97 02/25/25 07:42 FiO2 Intake & Output 02/25/25 02/26/25 02/26/25 18:59 06:59 18:59 Output Total 250 Balance -250 Weight 63.503 kg Output: Urine 250 Other: Voiding Method Bedpan Urinal - Constitutional General appearance: Present: cooperative - Gastrointestinal Gastrointestinal Comment(s): Soft, nontender, nondistended, no rebound or guarding - Labs CBC & Chem 7: 02/25/25 03:46 02/25/25 03:46 Labs: Abnormal Lab Results - Last 24 Hours (Table) 02/24/25 02/25/25 Range/Units 14:32 03:46 Sodium 127 L (135-145) mmol/L Chloride 95 L (96-109) mmol/L Carbon Dioxide 18.8 L (21.6-31.8) mmol/L Anion Gap 13.20 H (4.00-12.00) mmol/L BUN/Creatinine Ratio 28.33 H (12.00-20.00) Ratio Total Bilirubin 0.2 L (0.3-1.2) mg/dL Total Protein 6.0 L (6.2-8.2) g/dL Gabapentin 1.7 L (2.0-12.0) ug/mL Assessment and Plan Plan: 74-year-old male with concern of ileus and possibility of GI bleed. Hemoglobin did drop. Patient was offered endoscopy for further evaluation however he has refused at this time. States he would like to follow-up as an outpatient.
--- NOTE | 2025-03-02 06:34 | P.DS ---
Providers Date of admission: 02/24/25 07:35 Expected date of discharge: 02/25/25 Attending physician: Giulia Calderon Consults: 02/24/25 07:35 Consult Physician Routine Consulting Provider: Adan Hoffman Consult Reason/Comments: CHF exacerbation Do you want consulting provider notified?: Yes 02/24/25 08:03 Consult Physician Routine Consulting Provider: Nano Freeman Consult Reason/Comments: abdominal pain Do you want consulting provider notified?: Yes Primary care physician: Physician Nonstaff Hospital Course: Final diagnosis Abdominal pain, possibly acute gastritis, likely ileus that has resolved Elevated WBC Hyponatremia, improved History of coronary artery disease Hypertension Hyperlipidemia History of EtOH Discharge disposition Patient is being discharged in a stable condition with guarded prognosis to home. Patient will follow-up with his PCP along with Dr. Mansfield in the outpatient setting upon discharge. Patient is to continue with Protonix and close o utpatient follow-up with general surgery as scheduled. Recommend outpatient EGD. Total time taken is greater than 35 minutes. Hospital course This is a 63-year-old male who was recently admitted with nausea vomiting abdominal pain with concerns of acute gastritis and ileus. Patient evaluated by general surgery recommending EGD while inpatient although patient refused and would like to follow-up outpatient. Patient is having bowel movements and passing gas and reports improvement in symptoms and would like to go home. Recommend close outpatient follow-up with general surgery as well as primary care provider this week. Patient has been cleared by consultations. Please refer to consultation notes for further HPI. Currently no reports of chest pain, shortness of breath, or palpitations. Patient is afebrile. No reports of nausea or vomiting and patient is tolerating diet. Patient will be discharged home today. Guarded prognosis Physical exam: Gen: This is a 74-year-old male who is awake, alert and oriented x 3, well- developed, elderly appearing HEENT: Head is atraumatic, normocephalic. Pupils equal, round. Sclerae is anicteric. NECK: Supple. No JVD. No lymphadenopathy. No thyromegaly. LUNGS: Diminished breath sounds bilaterally otherwise clear to auscultation. No wheezes or rhonchi. No intercostal retractions. HEART: S1, S2 are muffled ABDOMEN: Soft. Bowel sounds are present. No masses. No tenderness. EXTREMITIES: No pedal edema. No calf tenderness. NEUROLOGICAL: Patient is awake, alert and oriented x3. Cranial nerves 2 through 12 are grossly intact. Please refer to medication reconciliation sheet for a list of medications. The impression and plan of care has been dictated by Jolie Morales, Nurse Practitioner as directed. Dr. Kvng MD I have performed a history and examination and MDM of this patient, discussed the same with the dictator, and agree with the dictator's assessment and plan as written ,documented as a scribe. Based on total visit time, I have performed more than 50% of the visit. Patient Condition at Discharge: Stable Plan - Discharge Summary New Discharge Prescriptions: New Pantoprazole [Protonix] 40 mg PO DAILY #30 tab Acetaminophen Tab [Tylenol] 650 mg PO Q6HR PRN tab PRN Reason: Fever And/ Or Pain Continue Loratadine [Claritin] 10 mg PO DAILY Atorvastatin [Lipitor] 80 mg PO DAILY Ferrous Sulfate [Iron (65 MG Elemental)] 325 mg PO DAILY Cyclobenzaprine [Flexeril] 5 mg PO DAILY carvediloL [Coreg] 6.25 mg PO DAILY Multivitamins, Thera [Multivitamin (formulary)] 1 tab PO DAILY Spironolactone [Aldactone] 25 mg PO DAILY Silver Sulfadiazine [Silver Sulfadiazine 1%] 1 applic TOPICAL BID Nitroglycerin Sl Tabs [Nitrostat] 0.4 mg SUBLINGUAL Q5M PRN #30 tab PRN Reason: Chest Pain Aspirin 81 mg PO DAILY #30 tab Clopidogrel [Plavix] 75 mg PO DAILY Changed Gabapentin 300 mg PO TID PRN #0 PRN Reason: Pain Discharge Medication List Loratadine [Claritin] 10 mg PO DAILY 09/08/20 [History] Atorvastatin [Lipitor] 80 mg PO DAILY 09/20/23 [History] Multivitamins, Thera [Multivitamin (formulary)] 1 tab PO DAILY 10/10/23 [History] carvediloL [Coreg] 6.25 mg PO DAILY 10/10/23 [History] Ferrous Sulfate [Iron (65 MG Elemental)] 325 mg PO DAILY 11/14/24 [History] Silver Sulfadiazine [Silver Sulfadiazine 1%] 1 applic TOPICAL BID 11/14/24 [History] Spironolactone [Aldactone] 25 mg PO DAILY 11/14/24 [History] Aspirin 81 mg PO DAILY #30 tab 01/12/25 [Rx] Nitroglycerin Sl Tabs [Nitrostat] 0.4 mg SUBLINGUAL Q5M PRN #30 tab 01/12/25 [Rx] Clopidogrel [Plavix] 75 mg PO DAILY 02/24/25 [History] Cyclobenzaprine [Flexeril] 5 mg PO DAILY 02/24/25 [History] Acetaminophen Tab [Tylenol] 650 mg PO Q6HR PRN tab 02/25/25 [Rx] Gabapentin 300 mg PO TID PRN #0 02/25/25 [Rx] Pantoprazole [Protonix] 40 mg PO DAILY #30 tab 02/25/25 [Rx] Follow up Appointment(s)/Referral(s): Nestor Broderick DO [STAFF PHYSICIAN] - 1 Week (Office closed at time of discharge. Please call to make an appt.) [facility], [NON-STAFF] - As Needed Nonstaff,Physician [Primary Care Provider] - 1-2 days (Please make an appt with you primary doctor.) Nano Freeman DO [Doctor of Osteopathic Medicine] - 1 Week (Office closed at time of discharge. Please call to make an appt.) Activity/Diet/Wound Care/Special Instructions: activity limited until follow up follow up with cardiology on discharge follow up with surgery outpatient continue taking meds as prescribed follow up with pcp on discharge continue soft diet and slowly advance Discharge Disposition: HOME SELF-CARE
== END 2025-02-25 13:30 | disposition home or self-care (01) ==
LOC: EC 04:38 → 1SOBS 07:35 → 4SSUR 15:14
PROVIDERS: ADMIT Hospitalist; ATTEND Hospitalist
DX: K56.7 Ileus, unspecified (principal); E87.1 Hypo-osmolality and hyponatremia; D72.829 Elevated white blood cell count, unspecified; I11.0 Hypertensive heart disease with heart failure; I50.22 Chronic systolic (congestive) heart failure; I25.10 Atherosclerotic heart disease of native coronary artery without angina pectoris; E78.5 Hyperlipidemia, unspecified; I73.9 Peripheral vascular disease, unspecified; I25.5 Ischemic cardiomyopathy; I71.43 Infrarenal abdominal aortic aneurysm, without rupture; I08.3 Combined rheumatic disorders of mitral, aortic and tricuspid valves; I27.20 Pulmonary hypertension, unspecified; I47.20 Ventricular tachycardia, unspecified; F17.200 Nicotine dependence, unspecified, uncomplicated; Z89.512 Acquired absence of left leg below knee; Z95.1 Presence of aortocoronary bypass graft; Z79.82 Long term (current) use of aspirin; Z79.899 Other long term (current) drug therapy; Z82.49 Family history of ischemic heart disease and other diseases of the circulatory system
CPT/HCPCS: 96376; 96375; 96374; 99285; 36415; 93005; 86900; 86901; 80171; 83880; 80053 ×2; 83605; 83735; 84484; 85025 ×2; 85610; 85730; 86850; 82272; 81003; 71046; 74176; G0378 ×2; J2270; J2470 ×2

== ENCOUNTER → 2025-03-30 | Outpatient (CLI) | payer MEDICARE ==
--- NOTE | 2025-03-30 13:45 | MR ---
EXAMINATION TYPE: MR cervical spine wo con DATE OF EXAM: 03/30/2025 12:26 PM COMPARISON: None. CLINICAL INDICATION: Male, 74 years old with history of M48.02 SPINAL STENOSIS, CERVICAL REGION, Dege nerative cervical stenosis. Pain TECHNIQUE: Multiplanar, multisequence images of the cervical spine were acquired without contrast. FINDINGS: No craniocervical junction abnormality, predental space widening, or prevertebral soft tissue swellin g. Degenerative change of the C1 dens and configuration. There is moderate to severe degenerative disc disease throughout with desiccated and narrowed discs a nd disc osteophyte complex formation. Some reactive edematous Modic type I endplate change C2-C3 and C4-C5. Reversal of the normal cervical lordosis. Prominent ligamentum flavum thickening C2-C3 and C3-C4. Degenerative grade 1 anterolisthesis C3-C4 and C7-T1. Multilevel hypertrophic facet and uncovertebral joint arthropathy is present. Combination of disc osteophyte complex and ligamentum flavum thickening contributes to moderate spina l canal stenosis at C2-C3 (AP canal dimension narrowed to 7 mm) and moderate at C3-C4 (AP canal dimen khurram narrowed down to 5 mm). Prominent abutment of both the dorsal and ventral cord. No mayco cord co mpression or high-grade canal compromise. At C3-C4, changes contributing to moderate left neuroforaminal stenosis. At C5-C6, changes contribute to moderate right and mild left neural foraminal stenosis. At C6/C7, changes result in moderate to severe right and mild left neuroforaminal stenosis. At C7-T1, changes result in moderate to severe right neuroforaminal stenosis. IMPRESSION: 1. Moderate to advanced spondylotic change throughout the cervical spine. Some edematous Modic type I endplate change particularly at C2-C3 and C4-C5. 2. Reversal of the normal cervical lordosis and degenerative grade 1 anterolisthesis C3-C4 and C7-T1. 3. Disc osteophyte complex along with ligamentum flavum thickening continues to a moderate focal spin al canal stenosis at C3-C4 (AP canal dimension of 5 mm) and also moderate at C2-C3 (AP canal dimensio n of 7 mm). There is abutment of both the dorsal and ventral cord but no mayco cord compression or co nvincing myelopathic cord signal change. Clinically correlate. 4. Variable neuroforaminal stenoses as outlined above, moderate to severe on the right at C6/C7 and C 7-T1. [facility], Workstation: [id number], 03/30/2025 1:43 PM
== END | disposition home or self-care (01) ==
LOC: RADMRIMAIN 11:28
PROVIDERS: ATTEND Family Medicine
DX: M48.02 Spinal stenosis, cervical region (principal); M47.812 Spondylosis without myelopathy or radiculopathy, cervical region; M43.12 Spondylolisthesis, cervical region; M25.78 Osteophyte, vertebrae
CPT/HCPCS: 72141